=== PATIENT | male | born 1935 | race Caucasian/White ===

== ENCOUNTER 2017-08-13 16:54 | Inpatient (IN) | END 2017-08-21 19:20 | DRG 728 ==

== ENCOUNTER 2018-04-14 12:25 | Emergency (ER) | payer MEDICARE, OTHER ==
[~2018-04-14] VITALS: Ht 170.2 cm; Wt 85.0 kg
[~2018-04-14 12:25] MED LIST: AZEL137S9 NASAL; BENA40TA56 PO; CARV6.2579 PO; CHOL400T10 PO; DOCU250C58 PO; DONE10TA7 PO; DUTA0.5C PO; ESCI5TAB10 PO; ICOS1CAP PO; MEMA10TA PO; OMEP20CA16 PO; RISP1TAB3 PO; SIMV40TA2 PO; TAMS0.4C2 PO; TRAM50TA2 PO
--- NOTE | 2018-04-14 12:39 | ERD ---
ER Documentation Chief Complaint Chief Complaint HPI 82-year-old male [facility] for inappropriate beh avior. Reportedly he has been acting more confused than usual and being more aggressive than usual. Otherwise the patient has no other complaints but history is limited due to his dementia. ROS Limited secondary to altered mental status Medications Home Meds Reported Medications Icosapent Ethyl (VASCEPA) 1 Gm Capsule, 1 GM PO BID, CAP 08/13/17 Tramadol HCl (Tramadol HCl) 50 Mg Tablet, 50 MG PO Q6H PRN for PAIN, #120 TAB 08/13/17 Tamsulosin Hcl* (Tamsulosin Hcl*) 0.4 Mg Cap.er.24h, 0.4 MG PO HS, CAP 08/13/17 Simvastatin* (Zocor*) 40 Mg Tablet, 40 MG PO QHS, #30 TAB 08/13/17 Risperidone* (Risperidone*) 1 Mg Tablet, 1 MG PO DAILY, TAB 08/13/17 Omeprazole* (Omeprazole*) 20 Mg Capsule.dr, 20 MG PO DAILY, #30 CAP 08/13/17 Memantine* (Namenda*) 10 Mg Tablet, 10 MG PO DAILY, #30 TAB 08/13/17 Escitalopram Oxalate* (Escitalopram Oxalate*) 5 Mg Tablet, 5 MG PO DAILY, #30 TAB 08/13/17 Dutasteride* (Avodart*) 0.5 Mg Capsule, 0.5 MG PO DAILY, CAP 08/13/17 Donepezil* (Donepezil*) 10 Mg Tablet, 10 MG PO DAILY, #30 TAB 08/13/17 Docusate Sodium* (Colace*) 250 Mg Capsule, 250 MG PO TID, #30 CAP 08/13/17 Cholecalciferol* (Vitamin D*) 400 Unit Tablet, 400 UNIT PO DAILY, TAB 08/13/17 Carvedilol* (Carvedilol*) 6.25 Mg Tablet, 6.25 MG PO BID, #60 TAB HOLD IF SBP<110 OR HR<60 08/13/17 Benazepril Hcl* (Benazepril Hcl*) 40 Mg Tablet, 40 MG PO DAILY, #30 TAB 08/13/17 Azelastine Hcl* (Azelastine Hcl*) 137 Mcg/0.137 Ml [place].pump, 1 SPRAY NASAL BID, #1 EA TO EACH NOSTRIL 08/13/17 Allergies Allergies: Coded Allergies: No Known Allergy (Unverified , 08/13/17) PMhx/Soc History of Surgery: Yes Anesthesia Reaction: No Hx Neurological Disorder: Yes (DEMENTIA) Hx Respiratory Disorders: Yes (COPD) Hx Cardiac Disorders: Yes (HTN) Hx Psychiatric Problems: No Hx Miscellaneous Medical Probl: Yes (BPH) Hx Alcohol Use: No Hx Substance Use: No Hx Tobacco Use: No FmHx Unable to obtain Physical Exam Vitals Vital Signs Date Temp Pulse Resp B/P (MAP) Pulse Ox O2 O2 Flow FiO2 Time Delivery Rate 04/14/18 97.5 60 18 129/109 97 12:41 (116) Physical Exam Const: No acute distress Head: Atraumatic Eyes: Normal Conjunctiva ENT: Normal External Ears, Nose and Mouth. Neck: Full range of motion. No meningismus. Resp: Clear to auscultation bilaterally Cardio: Regular rate and rhythm, no murmurs Abd: Soft, non tender, non distended. Normal bowel sounds Skin: No petechiae or rashes Back: No midline or flank tenderness Ext: No cyanosis, or edema Neur: Awake and alert, oriented to self only. Cranial nerves intact. Strength and sensations grossly intact Psych: Normal Mood and Affect Result Diagram: 04/14/18 1314 04/14/18 1314 Results 24 hrs Laboratory Tests Test 04/14/18 13:14 04/14/18 13:47 White Blood Count 3.1 10^3/ul Red Blood Count 4.58 10^6/ul Hemoglobin 12.2 g/dl Hematocrit 38.1 % Mean Corpuscular Volume 83.2 fl Mean Corpuscular Hemoglobin 26.6 pg Mean Corpuscular Hemoglobin Concent 32.0 g/dl Red Cell Distribution Width 15.1 % Platelet Count 127 10^3/UL Mean Platelet Volume 10.6 fl Immature Granulocytes % 0.300 % Neutrophils % 40.8 % Lymphocytes % 38.5 % Monocytes % 20.1 % Eosinophils % 0.0 % Basophils % 0.3 % Nucleated Red Blood Cells % 0.0 /100WBC Immature Granulocytes # 0.010 10^3/ul Neutrophils # 1.3 10^3/ul Lymphocytes # 1.2 10^3/ul Monocytes # 0.6 10^3/ul Eosinophils # 0.0 10^3/ul Basophils # 0.0 10^3/ul Nucleated Red Blood Cells # 0.0 10^3/ul Sodium Level 141 mmol/L Potassium Level 4.2 mmol/L Chloride Level 107 mmol/L Carbon Dioxide Level 27 mmol/L Anion Gap 7 Blood Urea Nitrogen 10 mg/dl Creatinine 0.65 mg/dl Est Glomerular Filtrat Rate mL/min mL/min Glucose Level 95 mg/dl Calcium Level 9.5 mg/dl Total Bilirubin 0.2 mg/dl Direct Bilirubin 0.00 mg/dl Indirect Bilirubin 0.2 mg/dl Aspartate Amino Transf (AST/SGOT) 23 IU/L Alanine Aminotransferase (ALT/SGPT) 28 IU/L Alkaline Phosphatase 45 IU/L Total Protein 7.7 g/dl Albumin 4.1 g/dl Globulin 3.60 g/dl Albumin/Globulin Ratio 1.13 Ethyl Alcohol Level < 10.0 mg/dl Urine Color YELLOW Urine Clarity CLEAR Urine pH 6.0 Urine Specific [place] 1.010 Urine Ketones NEGATIVE mg/dL Urine Nitrite NEGATIVE mg/dL Urine Bilirubin NEGATIVE mg/dL Urine Urobilinogen NEGATIVE mg/dL Urine Leukocyte Esterase NEGATIVE Miracle/ul Urine Hemoglobin NEGATIVE mg/dL Urine Glucose NEGATIVE mg/dL Urine Total Protein NEGATIVE mg/dl Urine Opiates Screen Negative Urine Barbiturates Negative Urine Amphetamines Screen Negative Urine Benzodiazepines Screen Negative Urine Cocaine Screen Negative Urine Cannabinoids Negative Procedures/MDM EMERGENT LABS AND DIAGNOSTIC STUDIES: Lab Results above were reviewed and interpreted by me. CBC: Mild leukopenia and thrombocytopenia CMP: No evidence of electrolyte abnormality, renal failure, hypoglycemia, liver failure, or biliary obstruction Urine drug screen negative Alcohol level negative UA: no evidence of infection Radiology Results as interpreted by Radiology below were reviewed by Cheyanne Neumann MD: CT head shows no acute abnormalities Chest x-ray shows no acute abnormalities Initial Nursing notes reviewed. Previous Medical Records requested via the Electronic Health Record. EMERGENCY DEPARTMENT COURSE / MEDICAL DECISION MAKING: This is a patient with chronic dementia with Behavioral problems sent from his [facility]itentiary facility for evaluation. Vitals are stable. He does not have an acute medical condition that is worsening his condition. I had psychiatry evaluate him and they had no immediate recommendations. He does not meet criteria for hospitalization. Patient will be sent back to the nursing facility . Medication changes and further psychiatry evaluation may be done outpatient. Departure Diagnosis: Primary Impression: Dementia with behavioral problem Dementia type: unspecified type Qualified Codes: F03.91 - Unspecified dementia with behavioral disturbance Condition: Stable MYLES NEUMANN MD Apr 14, 2018 12:39
[2018-04-14 12:41] VITALS: Ht 170.2 cm; Wt 85.0 kg
--- NOTE | 2018-04-14 15:24 | PSY ---
Date/Time of Note Date/Time of Note DATE: 04/14/18 TIME: 15:16 Psychiatric Subjective Eval Subjective Evaluation Patient location: emergency Chief Complaint: BIB EMS 140 FROM [facility]. INAPPROPRIATE BEHAVIOR REPORTED BY STAFF Reason for consult: TELEPSYCH EVAL FOR INAPPROPRIATE BEHAVIOR History of present illness 82 year old male with dementia brought to the ED for inappropriate sexual behavior. There has been no signficant change in medications, appetite or sleep. The patient is oriented to name only. The inappropriate sexually touching started recently. Past psychiatric history The patient does not recall. Records suggest that his prior psychiatric history is limited. Hospitalization: no Family History not available. Medical history Problems Medical Problems: (1) Bandemia Status: Acute (2) Pharyngitis Status: Acute (3) UTI (urinary tract infection) Status: Acute Allergies: Coded Allergies: No Known Allergy (Unverified , 08/13/17) Substance Abuse Substance use: No known substance abuse Social History Occupation/Fdc: disabled. Psychiatric Objective Eval Review of Systems: Review of Systems: Not Applicable Constitutional: Normal Other: There has been no significant change in appetite or weight. Physical Examination: Appetite: Adequate Energy: Adequate Mental Status Examination: Appearance: Groomed Psychomotor Activity: Normal Behavior: Other Speech: Soft AFFECT: Anxious Mood: Depressed Though Process: Loose Thought Content: Other (confused. ) Suicidal: No Homicidal: No Orientation: x1 Cognition: Alert Insight: Impared Judgement: Impared Attention Span: Distractible Laboratory Results Laboratory Tests Test 04/14/18 13:14 04/14/18 13:47 White Blood Count 3.1 10^3/ul Red Blood Count 4.58 10^6/ul Hemoglobin 12.2 g/dl Hematocrit 38.1 % Mean Corpuscular Volume 83.2 fl Mean Corpuscular Hemoglobin 26.6 pg Mean Corpuscular Hemoglobin Concent 32.0 g/dl Red Cell Distribution Width 15.1 % Platelet Count 127 10^3/UL Mean Platelet Volume 10.6 fl Immature Granulocytes % 0.300 % Neutrophils % 40.8 % Lymphocytes % 38.5 % Monocytes % 20.1 % Eosinophils % 0.0 % Basophils % 0.3 % Nucleated Red Blood Cells % 0.0 /100WBC Immature Granulocytes # 0.010 10^3/ul Neutrophils # 1.3 10^3/ul Lymphocytes # 1.2 10^3/ul Monocytes # 0.6 10^3/ul Eosinophils # 0.0 10^3/ul Basophils # 0.0 10^3/ul Nucleated Red Blood Cells # 0.0 10^3/ul Sodium Level 141 mmol/L Potassium Level 4.2 mmol/L Chloride Level 107 mmol/L Carbon Dioxide Level 27 mmol/L Anion Gap 7 Blood Urea Nitrogen 10 mg/dl Creatinine 0.65 mg/dl Est Glomerular Filtrat Rate mL/min mL/min Glucose Level 95 mg/dl Calcium Level 9.5 mg/dl Total Bilirubin 0.2 mg/dl Direct Bilirubin 0.00 mg/dl Indirect Bilirubin 0.2 mg/dl Aspartate Amino Transf (AST/SGOT) 23 IU/L Alanine Aminotransferase (ALT/SGPT) 28 IU/L Alkaline Phosphatase 45 IU/L Total Protein 7.7 g/dl Albumin 4.1 g/dl Globulin 3.60 g/dl Albumin/Globulin Ratio 1.13 Ethyl Alcohol Level < 10.0 mg/dl Urine Color YELLOW Urine Clarity CLEAR Urine pH 6.0 Urine Specific [place] 1.010 Urine Ketones NEGATIVE mg/dL Urine Nitrite NEGATIVE mg/dL Urine Bilirubin NEGATIVE mg/dL Urine Urobilinogen NEGATIVE mg/dL Urine Leukocyte Esterase NEGATIVE Miracle/ul Urine Hemoglobin NEGATIVE mg/dL Urine Glucose NEGATIVE mg/dL Urine Total Protein NEGATIVE mg/dl Urine Opiates Screen Negative Urine Barbiturates Negative Urine Amphetamines Screen Negative Urine Benzodiazepines Screen Negative Urine Cocaine Screen Negative Urine Cannabinoids Negative Assessment and Plan Assessment/Diagnosis Diagnosis Dementia. Recommendation/Plan Medication Management Suggest no change in medications. An SSRI trial Zoloft 50mg daily may reduce sexual libido and anxiety. Multiple antipsychotics: No Discharge Disposition: Community (SNF) Legal Status: Voluntary Other The patient should return to his prior place of residence. Helpful website for behavioral treatment for inappropriate behavior. [email or web address] SILVIA MUNOZ MD Apr 14, 2018 15:24
[2018-04-14 17:00] VITALS: BP 99/49; PULSE 64; RESP 18
== END 2018-04-14 17:30 | disposition home or self-care (01) ==
LOC: E/R 12:25
DX: F03.91 Unspecified dementia, unspecified severity, with behavioral disturbance (principal); R40.2142 Coma scale, eyes open, spontaneous, at arrival to emergency department; I10 Essential (primary) hypertension; J44.9 Chronic obstructive pulmonary disease, unspecified
CPT/HCPCS: 70450; 71045; 80053; 80307; 81003; 85025

== ENCOUNTER 2018-05-13 18:46 | Inpatient (IN) | payer MEDICARE, OTHER ==
[~2018-05-13] VITALS: Ht 167.6 cm; Wt 100.0 kg
[2018-05-13] MEDS ORDERED: SOD CHLORIDE 0.9% 500 ML IV STA (19:01)
--- NOTE | 2018-05-13 19:34 | ERD ---
ER Documentation Chief Complaint Chief Complaint CONFUSED TODAY; HX OF DEMENTIA HPI 82-year-old man brought in by EMS from alf for recent confusion. He was seen last month for similar symptoms and there was a concern for psychiatric illness and he was evaluated by his psychiatrist. The medical workup early this month was unremarkable. The patient was walking around the alf today and was going into other peoples rooms and appeared generally confused. He has had no fevers or chills, no vomiting or diarrhea, no complaints of chest pain or shortness of breath. Patient transported here by EMS without further complications ROS All systems reviewed and are negative except as per history of present illness. Medications Home Meds Reported Medications Simvastatin* (Zocor*) 40 Mg Tablet, 40 MG PO QHS, #30 TAB 05/13/18 Icosapent Ethyl (VASCEPA) 1 Gm Capsule, 1 GM PO QHS, CAP 05/13/18 Risperidone* (Risperdal*) 1 Mg Tablet, 0.5 MG PO DAILY, TAB 05/13/18 Memantine* (Namenda*) 10 Mg Tablet, 10 MG PO DAILY, #30 TAB 05/13/18 Benazepril Hcl* (Lotensin*) 40 Mg Tablet, 40 MG PO DAILY, #30 TAB HOLD FOR SBP<110 OR MD<60 05/13/18 Escitalopram Oxalate* (Lexapro*) 5 Mg Tablet, 5 MG PO Q OTHER DAY, #30 TAB 05/13/18 Tamsulosin Hcl* (Flomax*) 0.4 Mg Cap.er.24h, 0.4 MG PO HS, CAP 05/13/18 Carvedilol* (Coreg*) 6.25 Mg Tablet, 6.25 MG PO BID, #60 TAB HOLD FOR SBP<110 OR MD<60 05/13/18 Docusate Sodium* (Colace*) 250 Mg Capsule, 250 MG PO TID, #60 CAP 05/13/18 Cholecalciferol* (Vitamin D*) 400 Unit Tablet, 400 UNIT PO DAILY, TAB 05/13/18 Dutasteride* (Avodart*) 0.5 Mg Capsule, 0.5 MG PO DAILY, CAP 05/13/18 Donepezil* (Aricept*) 10 Mg Tablet, 10 MG PO DAILY, TAB 05/13/18 Acetaminophen* (Acetaminophen*) 650 Mg Tablet, 650 MG PO Q6H PRN for PAIN LEVEL 1-01/20, #30 TAB 05/13/18 Discontinued Reported Medications Icosapent Ethyl (VASCEPA) 1 Gm Capsule, 1 GM PO BID, CAP 08/13/17 Tramadol HCl (Tramadol HCl) 50 Mg Tablet, 50 MG PO Q6H PRN for PAIN, #120 TAB 08/13/17 Tamsulosin Hcl* (Tamsulosin Hcl*) 0.4 Mg Cap.er.24h, 0.4 MG PO HS, CAP 08/13/17 Simvastatin* (Zocor*) 40 Mg Tablet, 40 MG PO QHS, #30 TAB 08/13/17 Risperidone* (Risperidone*) 1 Mg Tablet, 1 MG PO DAILY, TAB 08/13/17 Omeprazole* (Omeprazole*) 20 Mg Capsule.dr, 20 MG PO DAILY, #30 CAP 08/13/17 Memantine* (Namenda*) 10 Mg Tablet, 10 MG PO DAILY, #30 TAB 08/13/17 Escitalopram Oxalate* (Escitalopram Oxalate*) 5 Mg Tablet, 5 MG PO DAILY, #30 TAB 08/13/17 Dutasteride* (Avodart*) 0.5 Mg Capsule, 0.5 MG PO DAILY, CAP 08/13/17 Donepezil* (Donepezil*) 10 Mg Tablet, 10 MG PO DAILY, #30 TAB 08/13/17 Docusate Sodium* (Colace*) 250 Mg Capsule, 250 MG PO TID, #30 CAP 08/13/17 Cholecalciferol* (Vitamin D*) 400 Unit Tablet, 400 UNIT PO DAILY, TAB 08/13/17 Carvedilol* (Carvedilol*) 6.25 Mg Tablet, 6.25 MG PO BID, #60 TAB HOLD IF SBP<110 OR HR<60 08/13/17 Benazepril Hcl* (Benazepril Hcl*) 40 Mg Tablet, 40 MG PO DAILY, #30 TAB 08/13/17 Azelastine Hcl* (Azelastine Hcl*) 137 Mcg/0.137 Ml [place].pump, 1 SPRAY NASAL BID, #1 EA TO EACH NOSTRIL 08/13/17 Allergies Allergies: Coded Allergies: No Known Allergy (Unverified , 05/13/18) PMhx/Soc Hypertension, BPH, dementia History of Surgery: No Anesthesia Reaction: No Hx Respiratory Disorders: Yes (COPD) Hx Psychiatric Problems: No (psychosis, depression, insomnia) Hx Miscellaneous Medical Probl: Yes (BPH, GERD, Osteoporosis) Hx Alcohol Use: No Hx Substance Use: No Hx Tobacco Use: No Smoking Status: Never smoker FmHx Family History: No diabetes Physical Exam Vitals Vital Signs Date Temp Pulse Resp B/P (MAP) Pulse Ox O2 O2 Flow FiO2 Time Delivery Rate 05/13/18 60 12 120/66 97 Room Air 19:32 (84) 05/13/18 98.0 64 18 131/75 98 18:59 (93) Physical Exam GENERAL: Well-developed, elderly man, afebrile, appears dehydrated HEENT: Dry mucous membranes, pink conjunctiva, no cervical spine tenderness or step-off deformities, NEURO: Alert and oriented x1, patient is ambulatory, pupils equal round reactive to light, no focal deficits, patient is confused but able to answer simple questions and follows simple commands CARDIAC: Regular rate and rhythm, no murmurs rubs or gallops ABDOMEN: Soft nontender, no guarding, no rigidity, no rebound, no psoas sign no obturator sign. SKIN: Warm and dry to touch, no abrasions, contusions, or hematomas, no lacerations, no ecchymosis, no target lesions, and without ulcers EXTREMITIES: No clubbing cyanosis or edema, calves are bilaterally symmetrical, no Homans sign, no popliteal cord sign. Distal pulses equal and bilateral PSYCH: Normal affect without agitation or irritability Result Diagram: 05/13/18191205/13/181912 Results 24 hrs Laboratory Tests Test 05/13/18 19:13 05/13/18 19:45 White Blood Count 2.6 10^3/ul Red Blood Count 4.73 10^6/ul Hemoglobin 12.5 g/dl Hematocrit 39.4 % Mean Corpuscular Volume 83.3 fl Mean Corpuscular Hemoglobin 26.4 pg Mean Corpuscular Hemoglobin Concent 31.7 g/dl Red Cell Distribution Width 15.5 % Platelet Count 111 10^3/UL Mean Platelet Volume 10.5 fl Immature Granulocytes % 0.400 % Segmented Neutrophils % (Manual) 39 % Lymphocytes % (Manual) 47 % Monocytes % (Manual) 14 % Nucleated Red Blood Cells % 0.0 /100WBC Immature Granulocytes # 0.010 10^3/ul Lymphocytes (Manual) 1.2 10^3/ul Monocytes # (Manual) 0.3 10^3/ul Platelet Estimate NORMAL Giant Platelets 4 % Polychromasia 1+ Poikilocytosis 1+ Sodium Level 141 mmol/L Potassium Level 3.9 mmol/L Chloride Level 102 mmol/L Carbon Dioxide Level 26 mmol/L Anion Gap 13 Blood Urea Nitrogen 14 mg/dl Creatinine 0.95 mg/dl Est Glomerular Filtrat Rate mL/min mL/min Glucose Level 105 mg/dl Calcium Level 9.8 mg/dl Total Bilirubin 0.1 mg/dl Direct Bilirubin 0.00 mg/dl Indirect Bilirubin 0.1 mg/dl Aspartate Amino Transf (AST/SGOT) 22 IU/L Alanine Aminotransferase (ALT/SGPT) 17 IU/L Alkaline Phosphatase 44 IU/L Troponin I < 0.012 ng/ml Total Protein 7.8 g/dl Albumin 4.3 g/dl Globulin 3.50 g/dl Albumin/Globulin Ratio 1.22 Lipase 144 U/L Urine Color YELLOW Urine Clarity CLEAR Urine pH 6.0 Urine Specific [place] 1.014 Urine Ketones NEGATIVE mg/dL Urine Nitrite NEGATIVE mg/dL Urine Bilirubin NEGATIVE mg/dL Urine Urobilinogen NEGATIVE mg/dL Urine Leukocyte Esterase NEGATIVE Miracle/ul Urine Microscopic RBC > 182 /HPF Urine Microscopic WBC 22 /HPF Urine Squamous Epithelial Cells FEW /HPF Urine Hemoglobin 3+ mg/dL Urine Glucose NEGATIVE mg/dL Urine Total Protein 1+ mg/dl Current Medications Medications Dose Sig/Jones Start Time Status Last (Trade) Ordered Route PRN Stop Time Admin Dose Reason Admin Sodium 500 ml @ Q1H STAT 05/13/18 DC 05/13/18 Chloride 500 mls/hr IV 19:01 19:18 05/13/18 20:00 Procedures/MDM IV line was established patient was placed on media monitor rhythm strip revealed a sinus rhythm at about 70 bpm with upright P and T waves. Patient was afebrile EKG performed, read by me revealed a normal sinus rhythm at 66 bpm, normal axis, first-degree AV block, right bundle branch block, no concerning ST elevations or depressions noted I administered 1 L normal saline IV for dehydration CBC was normal, electrolytes revealed dehydration, liver function tests normal, troponin negative, urinalysis positive for infection. CT scan of the brain was performed that was negative for acute bleed mass or shift. I administered cefepime 1 g IV x1 Patient will be admitted to [facility] for continued hydration and antibiotic management. Departure Diagnosis: Primary Impression: Altered level of consciousness Additional Impressions: Acute dehydration Acute UTI Dementia Condition: GABINO Kelsey MD May 13, 2018 19:32
[2018-05-13] MEDS ORDERED: ACET-2047 PO (20:15)
[2018-05-13] MEDS ORDERED: DUTA0.5C PO (20:16)
[2018-05-13] MEDS ORDERED: DONE10TA7 PO (20:16)
[2018-05-13] MEDS ORDERED: CHOL400T10 PO (20:17)
[2018-05-13] MEDS ORDERED: DOCU250C58 PO (20:17)
[2018-05-13] MEDS ORDERED: TAMS-14 PO (20:18)
[2018-05-13] MEDS ORDERED: CARV6.25 PO (20:18)
[2018-05-13] MEDS ORDERED: ESCI5TAB PO (20:19)
[2018-05-13] MEDS ORDERED: BENA40TA54 PO (20:19)
[2018-05-13] MEDS ORDERED: MEMA10TA PO (20:20)
[2018-05-13] MEDS ORDERED: RISP-7 PO (20:21)
[2018-05-13] MEDS ORDERED: SIMV40TA2 PO (20:22)
[2018-05-13] MEDS ORDERED: ICOS1CAP PO (20:22)
[2018-05-13] MEDS ORDERED: morphine 4 MG/ML VIAL IV PRN (21:00)
[2018-05-13] MEDS ORDERED: NACL 0.9% 3 ML SYG IV SCH (21:00)
[2018-05-13] MEDS ORDERED: ONDANSETRON 4 MG INJ IV PRN (21:00)
[2018-05-13 21:49] VITALS: Ht 167.6 cm; Wt 100.0 kg
[2018-05-13 21:52] VITALS: BP 154/79; PULSE 87; RESP 19
[2018-05-13] MEDS ORDERED: CEFEPIME 1GM/50 ML (PMX) 50 ML IVPB ONE (22:30)
[2018-05-13] MEDS: FAMOTIDINE 20 MG INJ IV SCH (22:52)
[2018-05-14 01:49] VITALS: BP 134/74; PULSE 81; RESP 20
[2018-05-14 08:12] VITALS: BP 130/68; PULSE 70; RESP 18
[2018-05-14] MEDS ORDERED: ENOXAPARIN 30 MG/0.3 ML SYG SC SCH (09:00)
[2018-05-14] MEDS: FAMOTIDINE 20 MG INJ IV SCH ×2 (09:06→20:39)
[2018-05-14 13:57] VITALS: BP 117/69; PULSE 71; RESP 18
[2018-05-14] MEDS: ACETAMINOPHEN 325 MG TAB PO PRN (14:05)
--- NOTE | 2018-05-14 18:02 | HP ---
Date/Time of Note Date/Time of Note DATE: 05/14/18 TIME: 17:55 Assessment/Plan VTE Prophylaxis Risk score (from Ns)>0 risk: 4 SCD applied (from Ns): Yes Pharmacological prophylaxis: other Lines/Catheters IV Catheter Type (from Rust): Saline Lock Urinary Cath still in place: No Assessment/Plan Hospital Course EKG - sinus rhythm at 66 bpm, normal axis, first-degree AV block, right bundle branch block, no concerning ST elevations or depressions note CBC was normal, electrolytes revealed dehydration liver function tests normal troponin negative urinalysis positive for infection. CT scan of the brain was performed that was negative for acute bleed mass or shift. Assessment/Plan Altered level of consciousness- resolving. alert/ responsive -CT scan of the brain was performed that was negative for acute bleed mass or shift. Acute dehydration -IVF Acute UTI - Rocephin daily Thrombocytopenia -hold Lovenox - Hematology consult appreciated Neutropenia - neutropenic precautions Hypertension- resume home meds BPH Dementia COPD Psychosis Depression Insomnia GERD Osteoporosis SCD forDVT prophylaxis Protonx FOR GI prophylaxis Plan of care dw Dr Becker/staff Result Diagram: 05/14/18 0621 05/14/18 0621 Results 24hrs Laboratory Tests Test 05/13/18 19:13 05/13/18 19:45 05/14/18 06:21 White Blood Count 2.6 L 2.2 L Red Blood Count 4.73 4.56 L Hemoglobin 12.5 L 12.0 L Hematocrit 39.4 L 38.0 L Mean Corpuscular Volume 83.3 83.3 Mean Corpuscular Hemoglobin 26.4 L 26.3 L Mean Corpuscular Hemoglobin Concent 31.7 L 31.6 L Red Cell Distribution Width 15.5 H 15.5 H Platelet Count 111 L 101 L Mean Platelet Volume 10.5 H 11.3 H Immature Granulocytes % 0.400 0.500 H Segmented Neutrophils % (Manual) 39 Lymphocytes % (Manual) 47 Monocytes % (Manual) 14 H Nucleated Red Blood Cells % 0.0 0.0 Immature Granulocytes # 0.010 0.010 Lymphocytes (Manual) 1.2 Monocytes # (Manual) 0.3 Platelet Estimate NORMAL Giant Platelets 4 H Polychromasia 1+ Poikilocytosis 1+ Sodium Level 141 143 Potassium Level 3.9 3.9 Chloride Level 102 111 H Carbon Dioxide Level 26 26 Anion Gap 13 6 Blood Urea Nitrogen 14 10 Creatinine 0.95 0.73 Est Glomerular Filtrat Rate mL/min Glucose Level 105 105 Calcium Level 9.8 9.2 Total Bilirubin 0.1 L 0.2 Direct Bilirubin 0.00 0.00 Indirect Bilirubin 0.1 0.2 Aspartate Amino Transf (AST/SGOT) 22 19 Alanine Aminotransferase (ALT/SGPT) 17 19 Alkaline Phosphatase 44 31 L Troponin I < 0.012 Total Protein 7.8 7.1 Albumin 4.3 3.8 Globulin 3.50 H 3.30 H Albumin/Globulin Ratio 1.22 1.15 Lipase 144 Urine Color YELLOW Urine Clarity CLEAR Urine pH 6.0 Urine Specific [place] 1.014 Urine Ketones NEGATIVE Urine Nitrite NEGATIVE Urine Bilirubin NEGATIVE Urine Urobilinogen NEGATIVE Urine Leukocyte Esterase NEGATIVE Urine Microscopic RBC > 182 H Urine Microscopic WBC 22 H Urine Squamous Epithelial Cells FEW Urine Hemoglobin 3+ H Urine Glucose NEGATIVE Urine Total Protein 1+ H Neutrophils % 30.3 L Lymphocytes % 45.2 Monocytes % 23.0 H Eosinophils % 0.5 Basophils % 0.5 Neutrophils # 0.7 L Lymphocytes # 1.0 Monocytes # 0.5 Eosinophils # 0.0 Basophils # 0.0 Nucleated Red Blood Cells # 0.0 Hemoglobin A1c 6.4 H HPI/ROS Admit Date/Time Admit Date/Time May 13, 2018 at 20:10 Hx of Present Illness This is a 82-year-old male- a SNF resident male is admitted with c/o confusion.The patient was walking around the residential today and was going into other peoples rooms and appeared generally confused. He has had no fevers or chills, no vomiting or diarrhea, no complaints of chest pain or shortness of breath. Patient had been admitted last month for similar symptoms and he was evaluated by his psychiatrist. The medical workup early this month was unremarkable. Patient is admitted under Dr Marinelli for futher treatment/evaluation ROS All systems reviewed and are negative except as per history of present illness. Allergies No Known Allergy (Unverified , 05/13/18) ROS Eyes: no complaints ENT: no complaints Gastrointestinal: no complaints Genitourinary: no complaints PMH/Family/Social Past Medical History PMhx/Soc Hypertension, BPH, dementia History of Surgery: No Anesthesia Reaction: No Hx Respiratory Disorders: Yes (COPD) Hx Psychiatric Problems: No (psychosis, depression, insomnia) Hx Miscellaneous Medical Probl: Yes (BPH, GERD, Osteoporosis) Hx Alcohol Use: No Hx Substance Use: No Hx Tobacco Use: No Smoking Status: Never smoker FmHx Family History: No diabetes Medications Current Medications IV Flush (NS 3 ml) 3 ml PER PROTOCOL IV ; Start 05/13/18 at 21:00 Ondansetron HCl (Zofran Inj) 4 mg Q6H PRN IV NAUSEA/VOMITING; Start 05/13/18 at 21:00 Acetaminophen (Tylenol Tab) 650 mg Q6H PRN PO .PAIN 1-3 OR TEMP Last administered on 05/14/18at 14:05; Admin Dose 650 MG; Start 05/13/18 at 21:00 Morphine Sulfate (morphine) 2 mg Q4H PRN IV .SEVERE PAIN 7-10; Start 05/13/18 at 21:00 Famotidine (Pepcid Iv) 20 mg Q12 IV Last administered on 05/14/18at 09:06; Admin Dose 20 MG; Start 05/13/18 at 21:00 Enoxaparin Sodium (Lovenox) 30 mg DAILY SC ; Start 05/14/18 at 09:00 Coded Allergies: No Known Allergy (Unverified , 05/13/18) Family History Significant Family History: no pertinent family hx Social History Smoking Status: Never smoker Exam/Review of Systems Vital Signs Vitals Vital Signs Date Temp Pulse Resp B/P (MAP) Pulse Ox O2 O2 Flow FiO2 Time Delivery Rate 05/14/18 98.5 71 18 117/69 92 Room Air 13:57 (85) Intake and Output 05/13/18 05/13/18 05/14/18 1515:00 23:00 07:00 IntakeIntake Total 50 ml BalanceBalance 50 ml Exam Constitutional: alert, well developed Psych: nl mood/affect Eyes: EOMI, nl sclera ENMT: nl external ears & nose Neck: non-tender Respiratory: diminished breath sounds Cardiovascular: nl pulses Gastrointestinal: soft, non-tender Musculoskeletal: nl extremities to inspection Neurological: nl speech, confused Lymph: nontender FROYLAN ALVAREZ May 14, 2018 18:02
[2018-05-14] MEDS ORDERED: ACETAMINOPHEN 325 MG TAB PO PRN (19:00)
[2018-05-14 20:00] VITALS: BP 154/72; PULSE 62; RESP 19
[2018-05-14] MEDS: TAMSULOSIN (SR) 0.4 MG CAP PO SCH (20:39)
[2018-05-14] MEDS: DOCUSATE SODIUM 250 MG CAP PO SCH (20:39)
[2018-05-14] MEDS: CEFTRIAXONE 1 GM/50 ML (PMX) 50 ML IVPB SCH (20:43)
[2018-05-15 02:00] VITALS: BP 157/82; PULSE 69; RESP 18
[2018-05-15] MEDS: DEXTROSE 5%-0.45% NACL 1,000 ML IV SCH (03:21)
[2018-05-15] MEDS: PANTOPRAZOLE (EC) 40 MG TAB PO SCH (05:49)
[2018-05-15 08:00] VITALS: BP 143/77; PULSE 73; RESP 20
[2018-05-15] MEDS: DUTASTERIDE 0.5 MG CAP PO SCH (09:23)
[2018-05-15] MEDS: CHOLECALCIFEROL 400 UNITS TAB PO SCH (09:23)
[2018-05-15] MEDS: RISPERIDONE 0.25 MG TAB PO SCH (09:23)
[2018-05-15] MEDS: DOCUSATE SODIUM 250 MG CAP PO SCH ×2 (09:23→20:41)
[2018-05-15] MEDS: MEMANTINE 10 MG TAB PO SCH (09:24)
[2018-05-15] MEDS: DONEPEZIL 10 MG TAB PO SCH (09:24)
[2018-05-15] MEDS: BENAZEPRIL 40 MG TAB PO SCH (11:21)
[2018-05-15 14:00] VITALS: BP 151/84; PULSE 69; RESP 18
--- NOTE | 2018-05-15 17:50 | PN ---
Date/Time of Note Date/Time of Note DATE: 05/15/18 TIME: 17:48 Assessment/Plan VTE Prophylaxis Risk score (from [facility] [place])>0 risk: 5 SCD applied (from [facility] [place]): Yes Pharmacological prophylaxis: other Lines/Catheters IV Catheter Type (from [facility]): Saline Lock Urinary Cath still in place: No Assessment/Plan Assessment/Plan Altered level of consciousness- resolving. alert/ responsive -CT scan of the brain was performed that was negative for acute bleed mass or shift. Acute dehydration -IVF Acute UTI - Rocephin daily Thrombocytopenia- Platelets 106 -hold Lovenox - Hematology consult appreciated Neutropenia - neutropenic precautions Hypertension- resume home meds BPH Dementia COPD Psychosis Depression Insomnia GERD Osteoporosis SCD forDVT prophylaxis Protonx FOR GI prophylaxis Plan of care dw Dr Becker/staff Result Diagram: 05/15/18 1206 05/15/18 1206 Results 24hrs Laboratory Tests Test 05/15/18 12:06 White Blood Count 2.6 L Red Blood Count 5.00 Hemoglobin 13.0 L Hematocrit 40.9 L Mean Corpuscular Volume 81.8 L Mean Corpuscular Hemoglobin 26.0 L Mean Corpuscular Hemoglobin Concent 31.8 L Red Cell Distribution Width 15.7 H Platelet Count 106 L Mean Platelet Volume 10.2 Immature Granulocytes % 0.400 Neutrophils % 30.7 L Lymphocytes % 50.0 Monocytes % 18.1 H Eosinophils % 0.4 Basophils % 0.4 Nucleated Red Blood Cells % 0.0 Immature Granulocytes # 0.010 Neutrophils # 0.8 L Lymphocytes # 1.3 Monocytes # 0.5 Eosinophils # 0.0 Basophils # 0.0 Nucleated Red Blood Cells # 0.0 Sodium Level 141 Potassium Level 3.9 Chloride Level 104 Carbon Dioxide Level 27 Anion Gap 10 Blood Urea Nitrogen 11 Creatinine 0.77 Est Glomerular Filtrat Rate mL/min Glucose Level 87 Calcium Level 9.8 Subjective 24 Hr Interval Summary Free Text/Dictation NAD Afebrile - no bleeding reported from any orifices no new events reported overnight Eyes: no complaints ENT: no complaints Respiratory: no complaints Cardiovascular: no complaints Gastrointestinal: no complaints Exam/Review of Systems Exam Vitals Vital Signs Date Temp Pulse Resp B/P (MAP) Pulse Ox O2 O2 Flow FiO2 Time Delivery Rate 05/15/18 98.2 69 18 151/84 94 14:00 (106) 05/15/18 Room Air 08:00 Intake and Output 05/14/18 05/14/18 05/15/18 1515:00 23:00 07:00 IntakeIntake Total 570 ml 600 ml OutputOutput Total 900 ml 1200 ml BalanceBalance -330 ml -600 ml Constitutional: alert, well developed Psych: nl mood/affect Head: normocephalic Eyes: EOMI, nl lids, nl sclera ENMT: nl external ears & nose Neck: non-tender Respiratory: clear to auscultation Cardiovascular: nl pulses, other (s1s2) Gastrointestinal: soft, non-tender Musculoskeletal: nl extremities to inspection Extremities: normal pulses Neurological: confused Skin: nl turgor Lymph: nontender Results Results 24hrs Laboratory Tests Test 05/15/18 12:06 White Blood Count 2.6 L Red Blood Count 5.00 Hemoglobin 13.0 L Hematocrit 40.9 L Mean Corpuscular Volume 81.8 L Mean Corpuscular Hemoglobin 26.0 L Mean Corpuscular Hemoglobin Concent 31.8 L Red Cell Distribution Width 15.7 H Platelet Count 106 L Mean Platelet Volume 10.2 Immature Granulocytes % 0.400 Neutrophils % 30.7 L Lymphocytes % 50.0 Monocytes % 18.1 H Eosinophils % 0.4 Basophils % 0.4 Nucleated Red Blood Cells % 0.0 Immature Granulocytes # 0.010 Neutrophils # 0.8 L Lymphocytes # 1.3 Monocytes # 0.5 Eosinophils # 0.0 Basophils # 0.0 Nucleated Red Blood Cells # 0.0 Sodium Level 141 Potassium Level 3.9 Chloride Level 104 Carbon Dioxide Level 27 Anion Gap 10 Blood Urea Nitrogen 11 Creatinine 0.77 Est Glomerular Filtrat Rate mL/min Glucose Level 87 Calcium Level 9.8 Medications Medication Current Medications IV Flush (NS 3 ml) 3 ml PER PROTOCOL IV ; Start 05/13/18 at 21:00 Ondansetron HCl (Zofran Inj) 4 mg Q6H PRN IV NAUSEA/VOMITING; Start 05/13/18 at 21:00 Acetaminophen (Tylenol Tab) 650 mg Q6H PRN PO .PAIN 1-3 OR TEMP Last administered on 05/14/18at 14:05; Admin Dose 650 MG; Start 05/13/18 at 21:00 Morphine Sulfate (morphine) 2 mg Q4H PRN IV .SEVERE PAIN 7-10; Start 05/13/18 at 21:00 Ceftriaxone Sodium 50 ml @ 100 mls/hr Q24H IVPB Last administered on 05/14/18 20:43; Admin Dose 100 MLS/HR; Start 05/14/18 at 18:30 Acetaminophen (Tylenol Tab) 650 mg Q6H PRN PO PAIN LEVEL 1-10/10; Start 05/14/18 at 19:00 Benazepril HCl (Lotensin) 40 mg DAILY PO Last administered on 05/15/18 11:21; Admin Dose 40 MG; Start 05/15/18 at 09:00 Carvedilol (Coreg) 6.25 mg BID PO Last administered on 05/15/18 09:25; Admin Dose 6.25 MG; Start 05/14/18 at 21:00 Cholecalciferol (Vitamin D) 400 units DAILY PO Last administered on 05/15/18 09:23; Admin Dose 400 UNITS; Start 05/15/18 at 09:00 Docusate Sodium (Colace) 250 mg BID PO Last administered on 05/15/18 09:23; Admin Dose 250 MG; Start 05/14/18 at 21:00 Donepezil HCl (Aricept) 10 mg DAILY PO Last administered on 05/15/18 09:24; Admin Dose 10 MG; Start 05/15/18 at 09:00 Dutasteride (Avodart) 0.5 mg DAILY PO Last administered on 05/15/18 09:23; Admin Dose 0.5 MG; Start 05/15/18 at 09:00 Memantine (Namenda) 10 mg DAILY PO Last administered on 05/15/18 09:24; Admin Dose 10 MG; Start 05/15/18 at 09:00 Risperidone (Risperdal) 0.5 mg DAILY PO Last administered on 05/15/18 09:23; Admin Dose 0.5 MG; Start 05/15/18 at 09:00 Tamsulosin HCl (Flomax) 0.4 mg HS PO Last administered on 05/14/18 20:39; Admin Dose 0.4 MG; Start 05/14/18 at 21:00 Escitalopram Oxalate (Lexapro) 5 mg QHS PO ; Start 05/15/18 at 21:00 Dextrose/Sodium Chloride 1,000 ml @ 60 mls/hr [id number] IV Last administered on 05/15/18at 03:21; Admin Dose 60 MLS/HR; Start 05/15/18 at 03:00 Pantoprazole (Protonix Tab) 40 mg DAILY@06 PO Last administered on 05/15/18at 05:49; Admin Dose 40 MG; Start 05/15/18 at 06:00 FROYLAN ALVAREZ May 15, 2018 17:50
[2018-05-15] MEDS: CEFTRIAXONE 1 GM/50 ML (PMX) 50 ML IVPB SCH (18:24)
[2018-05-15 20:38] VITALS: BP 119/62; PULSE 72; RESP 18
[2018-05-15] MEDS: TAMSULOSIN (SR) 0.4 MG CAP PO SCH (20:40)
[2018-05-15] MEDS: ESCITALOPRAM 10 MG TAB PO SCH (20:41)
[2018-05-16] MEDS: DEXTROSE 5%-0.45% NACL 1,000 ML IV SCH ×2 (01:07→12:20)
[2018-05-16 02:00] VITALS: BP 107/60; PULSE 83; RESP 18
[2018-05-16] MEDS: PANTOPRAZOLE (EC) 40 MG TAB PO SCH (05:43)
[2018-05-16 08:02] VITALS: BP 146/77; PULSE 73; RESP 17
[2018-05-16] MEDS: DOCUSATE SODIUM 250 MG CAP PO SCH ×2 (08:52→21:04)
[2018-05-16] MEDS: BENAZEPRIL 40 MG TAB PO SCH (08:53)
[2018-05-16] MEDS: CHOLECALCIFEROL 400 UNITS TAB PO SCH (08:54)
[2018-05-16] MEDS: MEMANTINE 10 MG TAB PO SCH (08:54)
[2018-05-16] MEDS: RISPERIDONE 0.25 MG TAB PO SCH (08:54)
[2018-05-16] MEDS: DONEPEZIL 10 MG TAB PO SCH (08:55)
[2018-05-16] MEDS: DUTASTERIDE 0.5 MG CAP PO SCH (09:00)
--- NOTE | 2018-05-16 10:53 | PN ---
Date/Time of Note Date/Time of Note DATE: 05/16/18 TIME: 10:52 Assessment/Plan VTE Prophylaxis Risk score (from [facility])>0 risk: 3 SCD applied (from [facility] [place]): No SCD contraindicated: other Pharmacological prophylaxis: other Lines/Catheters IV Catheter Type (from [facility]): Peripheral IV Urinary Cath still in place: No Assessment/Plan Assessment/Plan Altered level of consciousness- resolving. alert/ responsive -CT scan of the brain was performed that was negative for acute bleed mass or shift. Acute dehydration -IVF Acute UTI - Rocephin daily Thrombocytopenia -hold Lovenox - Hematology consult appreciated Neutropenia - neutropenic precautions Hypertension- resume home meds BPH Dementia COPD Psychosis Depression Insomnia GERD Osteoporosis SCD forDVT prophylaxis Protonix FOR GI prophylaxis Plan of care dw Dr Becker/staff Result Diagram: 05/15/18 1206 05/15/18 1206 Results 24hrs Laboratory Tests Test 05/15/18 12:06 White Blood Count 2.6 L Red Blood Count 5.00 Hemoglobin 13.0 L Hematocrit 40.9 L Mean Corpuscular Volume 81.8 L Mean Corpuscular Hemoglobin 26.0 L Mean Corpuscular Hemoglobin Concent 31.8 L Red Cell Distribution Width 15.7 H Platelet Count 106 L Mean Platelet Volume 10.2 Immature Granulocytes % 0.400 Neutrophils % 30.7 L Lymphocytes % 50.0 Monocytes % 18.1 H Eosinophils % 0.4 Basophils % 0.4 Nucleated Red Blood Cells % 0.0 Immature Granulocytes # 0.010 Neutrophils # 0.8 L Lymphocytes # 1.3 Monocytes # 0.5 Eosinophils # 0.0 Basophils # 0.0 Nucleated Red Blood Cells # 0.0 Sodium Level 141 Potassium Level 3.9 Chloride Level 104 Carbon Dioxide Level 27 Anion Gap 10 Blood Urea Nitrogen 11 Creatinine 0.77 Est Glomerular Filtrat Rate mL/min Glucose Level 87 Calcium Level 9.8 Subjective 24 Hr Interval Summary Free Text/Dictation NAD - Feels better - afebrile - no bleeding reported from any orifices - no new events reported last night Eyes: no complaints ENT: no complaints Respiratory: no complaints Cardiovascular: no complaints Gastrointestinal: no complaints Genitourinary: no complaints Musculoskeletal: no complaints Exam/Review of Systems Exam Vitals Vital Signs Date Temp Pulse Resp B/P (MAP) Pulse Ox O2 O2 Flow FiO2 Time Delivery Rate 05/16/18 98.0 73 17 146/77 93 08:02 (100) 05/15/18 Room Air 20:38 Intake and Output 05/15/18 05/15/18 05/16/18 1515:00 23:00 07:00 IntakeIntake Total 1220 ml 1330 ml 740 ml OutputOutput Total 1100 ml 1000 ml 400 ml BalanceBalance 120 ml 330 ml 340 ml Constitutional: alert, well developed Psych: nl mood/affect Head: normocephalic Eyes: EOMI, nl lids ENMT: nl external ears & nose Neck: non-tender Respiratory: clear to auscultation Cardiovascular: nl pulses, other (s1s2) Gastrointestinal: soft, non-tender Extremities: normal pulses Neurological: confused Lymph: nontender Results Results 24hrs Laboratory Tests Test 05/15/18 12:06 White Blood Count 2.6 L Red Blood Count 5.00 Hemoglobin 13.0 L Hematocrit 40.9 L Mean Corpuscular Volume 81.8 L Mean Corpuscular Hemoglobin 26.0 L Mean Corpuscular Hemoglobin Concent 31.8 L Red Cell Distribution Width 15.7 H Platelet Count 106 L Mean Platelet Volume 10.2 Immature Granulocytes % 0.400 Neutrophils % 30.7 L Lymphocytes % 50.0 Monocytes % 18.1 H Eosinophils % 0.4 Basophils % 0.4 Nucleated Red Blood Cells % 0.0 Immature Granulocytes # 0.010 Neutrophils # 0.8 L Lymphocytes # 1.3 Monocytes # 0.5 Eosinophils # 0.0 Basophils # 0.0 Nucleated Red Blood Cells # 0.0 Sodium Level 141 Potassium Level 3.9 Chloride Level 104 Carbon Dioxide Level 27 Anion Gap 10 Blood Urea Nitrogen 11 Creatinine 0.77 Est Glomerular Filtrat Rate mL/min Glucose Level 87 Calcium Level 9.8 Medications Medication Current Medications IV Flush (NS 3 ml) 3 ml PER PROTOCOL IV ; Start 05/13/18 at 21:00 Ondansetron HCl (Zofran Inj) 4 mg Q6H PRN IV NAUSEA/VOMITING; Start 05/13/18 at 21:00 Acetaminophen (Tylenol Tab) 650 mg Q6H PRN PO .PAIN 1-3 OR TEMP Last administered on 05/14/18at 14:05; Admin Dose 650 MG; Start 05/13/18 at 21:00 Morphine Sulfate (morphine) 2 mg Q4H PRN IV .SEVERE PAIN 7-10; Start 05/13/18 at 21:00 Ceftriaxone Sodium 50 ml @ 100 mls/hr Q24H IVPB Last administered on 05/15/18 18:24; Admin Dose 100 MLS/HR; Start 05/14/18 at 18:30 Acetaminophen (Tylenol Tab) 650 mg Q6H PRN PO PAIN LEVEL 1-10/10; Start 05/14/18 at 19:00 Benazepril HCl (Lotensin) 40 mg DAILY PO Last administered on 05/16/18 08:53; Admin Dose 40 MG; Start 05/15/18 at 09:00 Carvedilol (Coreg) 6.25 mg BID PO Last administered on 05/16/18 08:54; Admin Dose 6.25 MG; Start 05/14/18 at 21:00 Cholecalciferol (Vitamin D) 400 units DAILY PO Last administered on 05/16/18 08:54; Admin Dose 400 UNITS; Start 05/15/18 at 09:00 Docusate Sodium (Colace) 250 mg BID PO Last administered on 05/16/18 08:52; Adm in Dose 250 MG; Start 05/14/18 at 21:00 Donepezil HCl (Aricept) 10 mg DAILY PO Last administered on 05/16/18 08:55; Admin Dose 10 MG; Start 05/15/18 at 09:00 Dutasteride (Avodart) 0.5 mg DAILY PO Last administered on 05/15/18 09:23; Admin Dose 0.5 MG; Start 05/15/18 at 09:00 Memantine (Namenda) 10 mg DAILY PO Last administered on 05/16/18 08:54; Admin Dose 10 MG; Start 05/15/18 at 09:00 Risperidone (Risperdal) 0.5 mg DAILY PO Last administered on 05/16/18 08:54; Admin Dose 0.5 MG; Start 05/15/18 at 09:00 Tamsulosin HCl (Flomax) 0.4 mg HS PO Last administered on 05/15/18 20:40; Admin Dose 0.4 MG; Start 05/14/18 at 21:00 Escitalopram Oxalate (Lexapro) 5 mg QHS PO Last administered on 05/15/18 20:41; Admin Dose 5 MG; Start 05/15/18 at 21:00 Dextrose/Sodium Chloride 1,000 ml @ 60 mls/hr [id number] IV Last administered on 05/16/18at 01:07; Admin Dose 60 MLS/HR; Start 05/15/18 at 03:00 Pantoprazole (Protonix Tab) 40 mg DAILY@06 PO Last administered on 05/16/18at 05:43; Admin Dose 40 MG; Start 05/15/18 at 06:00 FROYLAN ALVAREZ May 16, 2018 10:53
[2018-05-16 14:54] VITALS: BP 154/75; PULSE 76; RESP 17
[2018-05-16] MEDS: CEFTRIAXONE 1 GM/50 ML (PMX) 50 ML IVPB SCH (17:57)
[2018-05-16 20:00] VITALS: BP 129/66; PULSE 62; RESP 18
[2018-05-16] MEDS: ESCITALOPRAM 10 MG TAB PO SCH (21:04)
[2018-05-16] MEDS: TAMSULOSIN (SR) 0.4 MG CAP PO SCH (21:04)
[2018-05-17 02:00] VITALS: BP 145/74; PULSE 74; RESP 16
[2018-05-17] MEDS: DEXTROSE 5%-0.45% NACL 1,000 ML IV SCH ×2 (05:00→06:49)
[2018-05-17] MEDS: PANTOPRAZOLE (EC) 40 MG TAB PO SCH (06:48)
[2018-05-17 07:51] VITALS: BP 148/72; PULSE 63; RESP 18
[2018-05-17] MEDS: BENAZEPRIL 40 MG TAB PO SCH (08:43)
[2018-05-17] MEDS: DONEPEZIL 10 MG TAB PO SCH (08:43)
[2018-05-17] MEDS: DOCUSATE SODIUM 250 MG CAP PO SCH ×2 (08:44→20:30)
[2018-05-17] MEDS: CHOLECALCIFEROL 400 UNITS TAB PO SCH (08:44)
[2018-05-17] MEDS: RISPERIDONE 0.25 MG TAB PO SCH (08:45)
[2018-05-17] MEDS: DUTASTERIDE 0.5 MG CAP PO SCH (08:45)
[2018-05-17] MEDS: MEMANTINE 10 MG TAB PO SCH (08:45)
[2018-05-17] MEDS: ASPIRIN (EC) 81 MG TAB PO SCH (12:53)
--- NOTE | 2018-05-17 14:26 | PN ---
DATE: 05/17/2018 SUBJECTIVE: The patient continues to grab nursing staff and one nurse also reported that he was trying to kiss her. The patient did not have any fall, no reported focal weakness. The patient remains awake, alert, no reported fever or chills. No reported bleeding sublingual in situ. NEUROLOGIC: The patient is awake, alert, follows simple commands. PHYSICAL EXAMINATION: VITAL SIGNS: Temperature 97.6, pulse 63, respiration 60, respiration 18, blood pressure 148/72, O2 saturation 95% on room air. HEENT: No eye discharge or redness. Conjunctivae normal. Oropharynx clear. NECK: Supple, no mass or thyromegaly. CHEST: Fairly clear. No use of accessory muscles. CARDIOVASCULAR: Normal. No murmur. ABDOMEN: Soft, nontender. Bowel sounds plus. EXTREMITIES: No leg edema. Pedal pulse palpable. SKIN: Without acute rash or ulcer. NEURO: The patient is awake, alert, follows simple command, moves all extremities. LABORATORY DATA: Done this morning, WBC 2.9, up from 2.6, hemoglobin 12.1, platelet 109, down from 127 a couple of days ago. Sodium 142, potassium 3.9, BUN 14, creatinine 0.7, glucose 107. IMPRESSION: 1. Pancytopenia. Will send another reminder for Heme-Onc evaluation from Dr. Carrera. 2. Abnormal UA, however, culture is negative and patient is afebrile. Therefore, I will discontinue empiric antibiotic. 3. Hyponatremia, improved. We will discontinue IV fluids. 4. Hypertension, well controlled with carvedilol and Lotensin. 5. Depression and dementia. Continue Lexapro, Aricept and Namenda. 7. Abdominal CT showing chronic changes of atrophy and small vessel disease. Will add baby aspirin. The patient's chest x-ray upon presentation did have bilateral interstitial infiltrate/edema however, clinically he does not appear to have any respiratory issues. Will obtain a followup chest x-ray. We will also request an echocardiogram to assess LV function. Plan of care discussed with nursing staff and social economist. Dictated By: MARTA MCGUIRE MD AB/BIANCA Conf#: [id number] DID#: [id number] CC: KAREN TOLEDO NP; GURJIT ANTUNEZ MD;*EndCC* MTDD
[2018-05-17 19:46] VITALS: BP 114/61; PULSE 63; RESP 18
[2018-05-17 19:50] VITALS: BP 128/69; PULSE 95; RESP 18
[2018-05-17 19:57] VITALS: BP 123/70; PULSE 95; RESP 18
[2018-05-17] MEDS: ESCITALOPRAM 10 MG TAB PO SCH (20:30)
[2018-05-17] MEDS: TAMSULOSIN (SR) 0.4 MG CAP PO SCH (20:30)
[2018-05-18 02:11] VITALS: BP 98/56; PULSE 74; RESP 18
[2018-05-18] MEDS: PANTOPRAZOLE (EC) 40 MG TAB PO SCH (06:37)
[2018-05-18 08:00] VITALS: BP 153/89; PULSE 84; RESP 18
[2018-05-18] MEDS: DUTASTERIDE 0.5 MG CAP PO SCH (08:23)
[2018-05-18] MEDS: RISPERIDONE 0.25 MG TAB PO SCH (08:23)
[2018-05-18] MEDS: DOCUSATE SODIUM 250 MG CAP PO SCH ×2 (08:23→20:42)
[2018-05-18] MEDS: BENAZEPRIL 40 MG TAB PO SCH (08:23)
[2018-05-18] MEDS: MEMANTINE 10 MG TAB PO SCH (08:23)
[2018-05-18] MEDS: DONEPEZIL 10 MG TAB PO SCH (08:23)
[2018-05-18] MEDS: ASPIRIN (EC) 81 MG TAB PO SCH (08:23)
[2018-05-18] MEDS: CHOLECALCIFEROL 400 UNITS TAB PO SCH (08:23)
--- NOTE | 2018-05-18 10:28 | RADRPT ---
Echocardiogram Report Patient Name: ASHVIN MIRELESPatient ID: [id number] : 1935 (82y 9m)Study Date: 05/17/2018 1:19:32 PM Gender: MAccession #: [id number] Tech: Carl RUST Location: [id number] Ref.Physician: MARTA MCGUIRE Height(Cm): BSA: Weight(Kg): Quality: Technically Difficult StudyAccount #: Procedures: Echocardiographic Report: Transthoracic echocardiogram with complete 2D, M-Mode, and doppler examination. Indications: Evaluate Left Ventricular function. Measurements: 2D/M Mode Doppler Measurement Value Normal Range Measurement Value Normal Range LVIDd 2D 4.0 [ 4.2 - 5.8 ] cm AV Peak Neri 1.0 [ 100.0 - 170.0 ] cm/sec LVIDs 2D 2.6 [ 2.5 - 4.0 ] cm AV Peak PG 4.0 [ 2.0 - 9.0 ] mmHg LVPWd 2D 1.3 [ 0.6 - 1.0 ] cm LVOT Peak Neri 0.6 [ 70.0 - 110.0 ] cm/sec IVSd 2D 1.3 [ 0.6 - 1.0 ] cm LVOT Peak PG 2.0 [ 2.0 - 6.0 ] mmHg IVS/LVPW 2D 1.0 ratio MV E Peak Neri 0.6 [ 60.0 - 130.0 ] cm/sec AoR Diam 2D 3.4 [ 2.6 - 3.4 ] cm MV A Peak Neri 0.9 [ 100.0 - 120.0 ] cm/sec LA/Ao 2D 1 ratio MV E/A 0.7 [ 0.8 - 1.5 ] ratio LA Dimen 2D 4.3 [ 3.0 - 4.0 ] cm MV Decel Time 278 [ 104 - 258 ] msec Lat E` Neri 0.1 [ 10.0 - 15.0 ] cm/sec Med E` Neri 0.0 cm/sec MV E/A 0.7 [ 0.8 - 1.5 ] ratio TR Peak Neri 2.2 [ 100.0 - 280.0 ] cm/sec TR Peak PG 20.0 mmHg RVSP 35.0 [ 10.0 - 36.0 ] mmHg Findings: Left Ventricle: Normal left ventricular systolic function. Normal left ventricular cavity size. Mild concentric left ventricular hypertrophy. Ejection fraction is visually estimated at 55 %. Tissue Doppler/Mitral Doppler indices are consistent with impaired relaxation (Stage I diastolic dysfunction). Right Ventricle: Normal right ventricular size. Normal right ventricular systolic function. Left Atrium: There is mild enlargement of left atrium. Right Atrium: The right atrium is normal in size. Mitral Valve: Mild mitral leaflet calcification. Mild mitral annular calcification. Trace mitral regurgitation. Aortic Valve: No significant aortic stenosis or insufficiency. Aortic cusps appear mildly calcified. Trace aortic valve regurgitation. Tricuspid Valve: Normal appearance of the tricuspid valve. Estimated peak PA systolic pressure 35 mmHg. There is mild tricuspid regurgitation. Pulmonic Valve: Pulmonic valve not well visualized. There is trace pulmonic regurgitation. Pericardium: Normal pericardium with no significant pericardial effusion. Aorta: Normal aortic root. IVC: Dilated IVC without respiratory collapse consistent with elevated right atrial pressure. Conclusions: Normal left ventricular systolic function. Normal left ventricular cavity size. Mild concentric left ventricular hypertrophy. Ejection fraction is visually estimated at 55 %. Tissue Doppler/Mitral Doppler indices are consistent with impaired relaxation (Stage I diastolic dysfunction). Mild mitral leaflet calcification. Mild mitral annular calcification. Trace mitral regurgitation. Normal appearance of the tricuspid valve. Estimated peak PA systolic pressure 35 mmHg. There is mild tricuspid regurgitation. Electronically Signed By: Jett Carter 2018-05-18 10:28:04 PST
--- NOTE | 2018-05-18 13:43 | CONS ---
Assessment/Plan Assessment/Plan Hospital Course (Demo Recall) #leukopenia #thrombocytopenia #Alzheimer dementia -pt did have an abdominal ultrasound done in 08/2017 that demonstrated fatty liver which may be the underlying cause of patient's pancytopenia -although given how persistent this pancytopenia has been we need to rule out MDS at this time -will order bone marrow bx -will also order vitmian b12/ folate/ homocysteine and methylmalonic acid levels -SPEP ordered -LDH ordered to rule out aggressive underlying malignancy Thank you for the opportunity to participate in this patients care A total of 40 minutes of face to face time was spent speaking with the patient, of which greater than 50% was spent in counseling and coordination of care and the detailed question and answer session. Consultation Date/Type/Reason Admit Date/Time May 13, 2018 at 20:10 Date of Consultation: May 18, 2018 Type of Consult Hematology Reason for Consultation Thrombocytopenia Requesting Provider: MARTA MCGUIRE MD Date/Time of Note DATE: 05/18/18 TIME: 13:25 Hx of Present Illness 82-year-old gentleman with multiple medical problems including hypertension, dyslipidemia, depression, dementia, known to me from prior admission who ho presented to [facility] from his SNF with confusion. On labs patient is noted to have chronic pancytopenia. 05/17/18 CBC WBC 2.9, Hg 12.1 platelets 109. Pt was briefly on antibiotics for abnormal UA but his has since been discontinued. During his last admission in August 2017 pt had an abdominal ultrasound which did demonstrates fatty liver. unable to obtain given patient's advanced dementia Genitourinary: no complaints Musculoskeletal: back pain Past Medical History Hypertension BPH Dementia COPD Psychosis Depression Insomnia GERD Osteoporosis Home Meds Reported Medications Simvastatin* (Zocor*) 40 Mg Tablet, 40 MG PO QHS, #30 TAB 05/13/18 Icosapent Ethyl (VASCEPA) 1 Gm Capsule, 1 GM PO QHS, CAP 05/13/18 Risperidone* (Risperdal*) 1 Mg Tablet, 0.5 MG PO DAILY, TAB 05/13/18 Memantine* (Namenda*) 10 Mg Tablet, 10 MG PO DAILY, #30 TAB 05/13/18 Benazepril Hcl* (Lotensin*) 40 Mg Tablet, 40 MG PO DAILY, #30 TAB HOLD FOR SBP<110 OR [place]<60 05/13/18 Escitalopram Oxalate* (Lexapro*) 5 Mg Tablet, 5 MG PO Q OTHER DAY, #30 TAB 05/13/18 Tamsulosin Hcl* (Flomax*) 0.4 Mg Cap.er.24h, 0.4 MG PO HS, CAP 05/13/18 Carvedilol* (Coreg*) 6.25 Mg Tablet, 6.25 MG PO BID, #60 TAB HOLD FOR SBP<110 OR [place]<60 05/13/18 Docusate Sodium* (Colace*) 250 Mg Capsule, 250 MG PO TID, #60 CAP 05/13/18 Cholecalciferol* (Vitamin D*) 400 Unit Tablet, 400 UNIT PO DAILY, TAB 05/13/18 Dutasteride* (Avodart*) 0.5 Mg Capsule, 0.5 MG PO DAILY, CAP 05/13/18 Donepezil* (Aricept*) 10 Mg Tablet, 10 MG PO DAILY, TAB 05/13/18 Acetaminophen* (Acetaminophen*) 650 Mg Tablet, 650 MG PO Q6H PRN for PAIN LEVEL -01/20, #30 TAB 05/13/18 Discontinued Reported Medications Icosapent Ethyl (VASCEPA) 1 Gm Capsule, 1 GM PO BID, CAP 08/13/17 Tramadol HCl (Tramadol HCl) 50 Mg Tablet, 50 MG PO Q6H PRN for PAIN, #120 TAB 08/13/17 Tamsulosin Hcl* (Tamsulosin Hcl*) 0.4 Mg Cap.er.24h, 0.4 MG PO HS, CAP 08/13/17 Simvastatin* (Zocor*) 40 Mg Tablet, 40 MG PO QHS, #30 TAB 08/13/17 Risperidone* (Risperidone*) 1 Mg Tablet, 1 MG PO DAILY, TAB 08/13/17 Omeprazole* (Omeprazole*) 20 Mg Capsule.dr, 20 MG PO DAILY, #30 CAP 08/13/17 Memantine* (Namenda*) 10 Mg Tablet, 10 MG PO DAILY, #30 TAB 08/13/17 Escitalopram Oxalate* (Escitalopram Oxalate*) 5 Mg Tablet, 5 MG PO DAILY, #30 TAB 08/13/17 Dutasteride* (Avodart*) 0.5 Mg Capsule, 0.5 MG PO DAILY, CAP 08/13/17 Donepezil* (Donepezil*) 10 Mg Tablet, 10 MG PO DAILY, #30 TAB 08/13/17 Docusate Sodium* (Colace*) 250 Mg Capsule, 250 MG PO TID, #30 CAP 08/13/17 Cholecalciferol* (Vitamin D*) 400 Unit Tablet, 400 UNIT PO DAILY, TAB 08/13/17 Carvedilol* (Carvedilol*) 6.25 Mg Tablet, 6.25 MG PO BID, #60 TAB HOLD IF SBP<110 OR HR<60 08/13/17 Benazepril Hcl* (Benazepril Hcl*) 40 Mg Tablet, 40 MG PO DAILY, #30 TAB 08/13/17 Azelastine Hcl* (Azelastine Hcl*) 137 Mcg/0.137 Ml [place].pump, 1 SPRAY NASAL BID, #1 EA TO EACH NOSTRIL 08/13/17 Medications Current Medications IV Flush (NS 3 ml) 3 ml PER PROTOCOL IV ; Start 05/13/18 at 21:00 Ondansetron HCl (Zofran Inj) 4 mg Q6H PRN IV NAUSEA/VOMITING; Start 05/13/18 at 21:00 Acetaminophen (Tylenol Tab) 650 mg Q6H PRN PO .PAIN 1-3 OR TEMP Last administered on 05/14/18at 14:05; Admin Dose 650 MG; Start 05/13/18 at 21:00 Morphine Sulfate (morphine) 2 mg Q4H PRN IV .SEVERE PAIN 7-10; Start 05/13/18 at 21:00 Acetaminophen (Tylenol Tab) 650 mg Q6H PRN PO PAIN LEVEL 1-10/10; Start 05/14/18 at 19:00 Benazepril HCl (Lotensin) 40 mg DAILY PO Last administered on 05/18/18at 08:23; Admin Dose 40 MG; Start 05/15/18 at 09:00 Carvedilol (Coreg) 6.25 mg BID PO Last administered on 05/18/18at 08:23; Admin Dose 6.25 MG; Start 05/14/18 at 21:00 Cholecalciferol (Vitamin D) 400 units DAILY PO Last administered on 05/18/18at 08:23; Admin Dose 400 UNITS; Start 05/15/18 at 09:00 Docusate Sodium (Colace) 250 mg BID PO Last administered on 05/18/18 08:23; Admin Dose 250 MG; Start 05/14/18 at 21:00 Donepezil HCl (Aricept) 10 mg DAILY PO Last administered on 05/18/18 08:23; Admin Dose 10 MG; Start 05/15/18 at 09:00 Dutasteride (Avodart) 0.5 mg DAILY PO Last administered on 05/18/18 08:23; Admin Dose 0.5 MG; Start 05/15/18 at 09:00 Memantine (Namenda) 10 mg DAILY PO Last administered on 05/18/18 08:23; Admin Dose 10 MG; Start 05/15/18 at 09:00 Risperidone (Risperdal) 0.5 mg DAILY PO Last administered on 05/18/18 08:23; Admin Dose 0.5 MG; Start 05/15/18 at 09:00 Tamsulosin HCl (Flomax) 0.4 mg HS PO Last administered on 05/17/18 20:30; Admin Dose 0.4 MG; Start 05/14/18 at 21:00 Escitalopram Oxalate (Lexapro) 5 mg QHS PO Last administered on 05/17/18 20:30; Admin Dose 5 MG; Start 05/15/18 at 21:00 Pantoprazole (Protonix Tab) 40 mg DAILY@06 PO Last administered on 05/18/18 06:37; Admin Dose 40 MG; Start 05/15/18 at 06:00 Aspirin (Halfprin) 81 mg DAILY PO Last administered on 05/18/18 08:23; Admin Dose 81 MG; Start 05/17/18 at 12:30 Allergies: Coded Allergies: No Known Allergy (Unverified , 05/13/18) Past Surgical History Past Surgical Hx: no surgical history Family History Significant Family History: no pertinent family hx Social History Alcohol Use: none Smoking Status: Never smoker Drug Use: none Exam/Review of Systems Exam Vitals Vital Signs Date Temp Pulse Resp B/P (MAP) Pulse Ox O2 O2 Flow FiO2 Time Delivery Rate 05/18/18 97.7 84 18 153/89 91 Room Air 08:00 (110) Intake and Output 05/17/18 05/17/18 05/18/18 1515:00 23:00 07:00 IntakeIntake Total 940 ml OutputOutput Total 750 ml BalanceBalance 190 ml Psych: confusion Head: normocephalic Eyes: nl conjunctiva ENMT: nl external ears & nose Neck: supple, non-tender Respiratory: clear to auscultation Cardiovascular: regular rate and rhythm Gastrointestinal: soft Musculoskeletal: nl extremities to inspection Extremities: normal pulses Neurological: [employer] II-XII intact Results Result Diagram: 05/17/18 0530 05/18/18 0744 Results 24hrs Laboratory Tests Test 05/18/18 07:44 Sodium Level 140 Potassium Level 4.1 Chloride Level 107 Carbon Dioxide Level 29 Anion Gap 4 L Blood Urea Nitrogen 13 Creatinine 0.75 Est Glomerular Filtrat Rate mL/min Glucose Level 90 Calcium Level 9.3 Medications Medication Current Medications IV Flush (NS 3 ml) 3 ml PER PROTOCOL IV ; Start 05/13/18 at 21:00 Ondansetron HCl (Zofran Inj) 4 mg Q6H PRN IV NAUSEA/VOMITING; Start 05/13/18 at 21:00 Acetaminophen (Tylenol Tab) 650 mg Q6H PRN PO .PAIN 1-3 OR TEMP Last administered on 05/14/18at 14:05; Admin Dose 650 MG; Start 05/13/18 at 21:00 Morphine Sulfate (morphine) 2 mg Q4H PRN IV .SEVERE PAIN 7-10; Start 05/13/18 at 21:00 Acetaminophen (Tylenol Tab) 650 mg Q6H PRN PO PAIN LEVEL 1-10/10; Start 05/14/18 at 19:00 Benazepril HCl (Lotensin) 40 mg DAILY PO Last administered on 05/18/18at 08:23; Admin Dose 40 MG; Start 05/15/18 at 09:00 Carvedilol (Coreg) 6.25 mg BID PO Last administered on 05/18/18 08:23; Admin D ose 6.25 MG; Start 05/14/18 at 21:00 Cholecalciferol (Vitamin D) 400 units DAILY PO Last administered on 05/18/18 08:23; Admin Dose 400 UNITS; Start 05/15/18 at 09:00 Docusate Sodium (Colace) 250 mg BID PO Last administered on 05/18/18at 08:23; Admin Dose 250 MG; Start 05/14/18 at 21:00 Donepezil HCl (Aricept) 10 mg DAILY PO Last administered on 05/18/18 08:23; Admin Dose 10 MG; Start 05/15/18 at 09:00 Dutasteride (Avodart) 0.5 mg DAILY PO Last administered on 05/18/18 08:23; Admin Dose 0.5 MG; Start 05/15/18 at 09:00 Memantine (Namenda) 10 mg DAILY PO Last administered on 05/18/18 08:23; Admin Dose 10 MG; Start 05/15/18 at 09:00 Risperidone (Risperdal) 0.5 mg DAILY PO Last administered on 05/18/18 08:23; Admin Dose 0.5 MG; Start 05/15/18 at 09:00 Tamsulosin HCl (Flomax) 0.4 mg HS PO Last administered on 05/17/18 20:30; Admin Dose 0.4 MG; Start 05/14/18 at 21:00 Escitalopram Oxalate (Lexapro) 5 mg QHS PO Last administered on 05/17/18 20:30; Admin Dose 5 MG; Start 05/15/18 at 21:00 Pantoprazole (Protonix Tab) 40 mg DAILY@06 PO Last administered on 05/18/18 06:37; Admin Dose 40 MG; Start 05/15/18 at 06:00 Aspirin (Halfprin) 81 mg DAILY PO Last administered on 05/18/18 08:23; Admin Dose 81 MG; Start 05/17/18 at 12:30 RAMILA YOUNG M.D. May 18, 2018 13:38
--- NOTE | 2018-05-18 16:04 | PN ---
Date/Time of Note Date/Time of Note DATE: 05/18/18 TIME: 15:58 Assessment/Plan VTE Prophylaxis Risk score (from [facility])>0 risk: 3 SCD applied (from [facility]): Yes Pharmacological prophylaxis: NA/contraindicated Pharm contraindication: thrombocytopenia Lines/Catheters IV Catheter Type (from [facility]): Peripheral IV Urinary Cath still in place: No Assessment/Plan Hospital Course Patient remains hemodynamically stable, afebrile, 2D echo with ejection fraction of 55%, chest x-ray with atelectasis versus early infiltrates patient has no fever will start incentive spirometer. Patient is status post evaluation by Dr. Carrera in hematology consultation, plan for bone marrow biopsy. Assessment/Plan -Pancytopenia. Dr. Carrera is following in hematology consultation. Plan for bone marrow biopsy. -Hypertension, continue Coreg and lisinopril. -Preserved ejection fraction per 2D echo -Depression, continue Lexapro -Dementia, continue Aricept and Namenda -Atelectasis versus minimal infiltrate in the bilateral lower lobes. No fever. Encourage incentive spirometer use. -BPH, continue tamsulosin and finasteride. Further recommendations based on clinical course. Plan of care discussed with Dr. Becker. Result Diagram: 05/17/18 0530 05/18/18 0744 Results 24hrs Laboratory Tests Test 05/18/18 07:44 Sodium Level 140 Potassium Level 4.1 Chloride Level 107 Carbon Dioxide Level 29 Anion Gap 4 L Blood Urea Nitrogen 13 Creatinine 0.75 Est Glomerular Filtrat Rate mL/min Glucose Level 90 Calcium Level 9.3 Exam/Review of Systems Exam Vitals Vital Signs Date Temp Pulse Resp B/P (MAP) Pulse Ox O2 O2 Flow FiO2 Time Delivery Rate 05/18/18 97.7 84 18 153/89 91 Room Air 08:00 (110) Intake and Output 05/17/18 05/17/18 05/18/18 1515:00 23:00 07:00 IntakeIntake Total 940 ml OutputOutput Total 750 ml BalanceBalance 190 ml Constitutional: alert, oriented Respiratory: diminished breath sounds Cardiovascular: nl pulses Gastrointestinal: soft, non-tender Musculoskeletal: nl extremities to inspection Extremities: normal pulses Results Results 24hrs Laboratory Tests Test 05/18/18 07:44 Sodium Level 140 Potassium Level 4.1 Chloride Level 107 Carbon Dioxide Level 29 Anion Gap 4 L Blood Urea Nitrogen 13 Creatinine 0.75 Est Glomerular Filtrat Rate mL/min Glucose Level 90 Calcium Level 9.3 Medications Medication Current Medications IV Flush (NS 3 ml) 3 ml PER PROTOCOL IV ; Start 05/13/18 at 21:00 Ondansetron HCl (Zofran Inj) 4 mg Q6H PRN IV NAUSEA/VOMITING; Start 05/13/18 at 21:00 Acetaminophen (Tylenol Tab) 650 mg Q6H PRN PO .PAIN 1-3 OR TEMP Last administered on 05/14/18 14:05; Admin Dose 650 MG; Start 05/13/18 at 21:00 Morphine Sulfate (morphine) 2 mg Q4H PRN IV .SEVERE PAIN 7-10; Start 05/13/18 at 21:00 Acetaminophen (Tylenol Tab) 650 mg Q6H PRN PO PAIN LEVEL 1-10/10; Start 05/14/18 at 19:00 Benazepril HCl (Lotensin) 40 mg DAILY PO Last administered on 05/18/18 08:23; Admin Dose 40 MG; Start 05/15/18 at 09:00 Carvedilol (Coreg) 6.25 mg BID PO Last administered on 05/18/18 08:23; Admin Dose 6.25 MG; Start 05/14/18 at 21:00 Cholecalciferol (Vitamin D) 400 units DAILY PO Last administered on 05/18/18 08:23; Admin Dose 400 UNITS; Start 05/15/18 at 09:00 Docusate Sodium (Colace) 250 mg BID PO Last administered on 05/18/18 08:23; Admin Dose 250 MG; Start 05/14/18 at 21:00 Donepezil HCl (Aricept) 10 mg DAILY PO Last administered on 05/18/18 08:23; Admin Dose 10 MG; Start 05/15/18 at 09:00 Dutasteride (Avodart) 0.5 mg DAILY PO Last administered on 05/18/18 08:23; Adm in Dose 0.5 MG; Start 05/15/18 at 09:00 Memantine (Namenda) 10 mg DAILY PO Last administered on 05/18/18 08:23; Admin Dose 10 MG; Start 05/15/18 at 09:00 Risperidone (Risperdal) 0.5 mg DAILY PO Last administered on 05/18/18 08:23; Admin Dose 0.5 MG; Start 05/15/18 at 09:00 Tamsulosin HCl (Flomax) 0.4 mg HS PO Last administered on 05/17/18 20:30; Admin Dose 0.4 MG; Start 05/14/18 at 21:00 Escitalopram Oxalate (Lexapro) 5 mg QHS PO Last administered on 05/17/18 20:30; Admin Dose 5 MG; Start 05/15/18 at 21:00 Pantoprazole (Protonix Tab) 40 mg DAILY@06 PO Last administered on 05/18/18 06:37; Admin Dose 40 MG; Start 05/15/18 at 06:00 Aspirin (Halfprin) 81 mg DAILY PO Last administered on 05/18/18 08:23; Admin Dose 81 MG; Start 05/17/18 at 12:30 JOYCE CHOW May 18, 2018 16:04
[2018-05-18] MEDS ORDERED: ALBUTEROL/IPRATROPIUM (NEB) 3 ML AMP HHN PRN (16:30)
[2018-05-18 19:46] VITALS: BP 138/70; PULSE 73; RESP 18
[2018-05-18] MEDS: ESCITALOPRAM 10 MG TAB PO SCH (20:41)
[2018-05-18] MEDS: TAMSULOSIN (SR) 0.4 MG CAP PO SCH (20:42)
[2018-05-19 01:41] VITALS: BP 145/76; PULSE 85; RESP 18
[2018-05-19] MEDS: PANTOPRAZOLE (EC) 40 MG TAB PO SCH (06:00)
[2018-05-19 08:05] VITALS: BP 134/76; PULSE 72; RESP 18
[2018-05-19] MEDS: ASPIRIN (EC) 81 MG TAB PO SCH ×2 (09:00→19:42)
[2018-05-19] MEDS: DUTASTERIDE 0.5 MG CAP PO SCH (09:16)
[2018-05-19] MEDS: CHOLECALCIFEROL 400 UNITS TAB PO SCH (09:16)
[2018-05-19] MEDS: DOCUSATE SODIUM 250 MG CAP PO SCH ×2 (09:16→21:06)
[2018-05-19] MEDS: DONEPEZIL 10 MG TAB PO SCH (09:16)
[2018-05-19] MEDS: MEMANTINE 10 MG TAB PO SCH (09:18)
[2018-05-19] MEDS: BENAZEPRIL 40 MG TAB PO SCH (09:18)
[2018-05-19] MEDS: RISPERIDONE 0.25 MG TAB PO SCH (09:19)
[2018-05-19 14:00] VITALS: BP 132/81; PULSE 72
--- NOTE | 2018-05-19 14:06 | CONS ---
Assessment/Plan Assessment/Plan Hospital Course (Demo Recall) #leukopenia #thrombocytopenia #Alzheimer dementia -pt did have an abdominal ultrasound done in 08/2017 that demonstrated fatty liver which may be the underlying cause of patient's pancytopenia -although given how persistent this pancytopenia has been we need to rule out MDS at this time -will order bone marrow bx -no obvious evidence of vitamin b12 or folate deficiency -SPEP ordered -LDH ordered to rule out aggressive underlying malignancy Thank you for the opportunity to participate in this patients care A total of 40 minutes of face to face time was spent speaking with the patient, of which greater than 50% was spent in counseling and coordination of care and the detailed question and answer session. Consultation Date/Type/Reason Admit Date/Time May 15, 2018 at 12:37 Initial Consult Date 05/18/18 Type of Consult Hematology Reason for Consultation pancytopenia Requesting Provider: MARTA MCGUIRE MD Date/Time of Note DATE: 05/19/18 TIME: 14:03 24 HR Interval Summary Free Text/Dictation no acute overnight events Exam/Review of Systems Exam Vitals Vital Signs Date Temp Pulse Resp B/P (MAP) Pulse Ox O2 O2 Flow FiO2 Time Delivery Rate 05/19/18 97.9 72 18 134/76 96 Room Air 08:05 (95) Intake and Output 05/18/18 05/18/18 05/19/18 1515:00 23:00 07:00 IntakeIntake Total 1060 ml 240 ml OutputOutput Total 1050 ml 900 ml BalanceBalance 10 ml 240 ml -900 ml Psych: confusion Head: normocephalic Eyes: nl conjunctiva ENMT: nl external ears & nose Neck: supple, non-tender Respiratory: clear to auscultation Cardiovascular: regular rate and rhythm Gastrointestinal: soft Musculoskeletal: nl extremities to inspection Results Result Diagram: 05/19/18 0548 05/19/18 0548 Results 24hrs Laboratory Tests Test 05/18/18 14:13 05/19/18 05:48 Vitamin B12 Level 752 Methylmalonic Acid Pending Folate 11.1 Homocysteine (Cardiovascular) 9.9 White Blood Count 3.1 L Red Blood Count 4.73 Hemoglobin 12.5 L Hematocrit 39.4 L Mean Corpuscular Volume 83.3 Mean Corpuscular Hemoglobin 26.4 L Mean Corpuscular Hemoglobin Concent 31.7 L Red Cell Distribution Width 15.4 H Platelet Count 110 L Mean Platelet Volume 11.1 H Immature Granulocytes % 0.600 H Neutrophils % 33.9 L Lymphocytes % 45.1 Monocytes % 19.8 H Eosinophils % 0.3 Basophils % 0.3 Nucleated Red Blood Cells % 0.0 Immature Granulocytes # 0.020 Neutrophils # 1.0 L Lymphocytes # 1.4 Monocytes # 0.6 Eosinophils # 0.0 Basophils # 0.0 Nucleated Red Blood Cells # 0.0 Sodium Level 142 Potassium Level 4.0 Chloride Level 105 Carbon Dioxide Level 28 Anion Gap 9 # Blood Urea Nitrogen 16 Creatinine 0.81 Est Glomerular Filtrat Rate mL/min Glucose Level 95 Calcium Level 9.6 Medications Medication Current Medications IV Flush (NS 3 ml) 3 ml PER PROTOCOL IV ; Start 05/13/18 at 21:00 Ondansetron HCl (Zofran Inj) 4 mg Q6H PRN IV NAUSEA/VOMITING; Start 05/13/18 at 21:00 Acetaminophen (Tylenol Tab) 650 mg Q6H PRN PO .PAIN 1-3 OR TEMP Last administered on 05/14/18at 14:05; Admin Dose 650 MG; Start 05/13/18 at 21:00 Morphine Sulfate (morphine) 2 mg Q4H PRN IV .SEVERE PAIN 7-10; Start 05/13/18 at 21:00 Acetaminophen (Tylenol Tab) 650 mg Q6H PRN PO PAIN LEVEL 1-10/10; Start 05/14/18 at 19:00 Benazepril HCl (Lotensin) 40 mg DAILY PO Last administered on 05/19/18at 09:18; Admin Dose 40 MG; Start 05/15/18 at 09:00 Carvedilol (Coreg) 6.25 mg BID PO Last administered on 05/19/18 09:17; Admin Dose 6.25 MG; Start 05/14/18 at 21:00 Cholecalciferol (Vitamin D) 400 units DAILY PO Last administered on 05/19/18at 09:16; Admin Dose 400 UNITS; Start 05/15/18 at 09:00 Docusate Sodium (Colace) 250 mg BID PO Last administered on 05/19/18at 09:16; Admin Dose 250 MG; Start 05/14/18 at 21:00 Donepezil HCl (Aricept) 10 mg DAILY PO Last administered on 05/19/18 09:16; Admin Dose 10 MG; Start 05/15/18 at 09:00 Dutasteride (Avodart) 0.5 mg DAILY PO Last administered on 05/19/18 09:16; Admin Dose 0.5 MG; Start 05/15/18 at 09:00 Memantine (Namenda) 10 mg DAILY PO Last administered on 05/19/18 09:18; Admin Dose 10 MG; Start 05/15/18 at 09:00 Risperidone (Risperdal) 0.5 mg DAILY PO Last administered on 05/19/18 09:19; Admin Dose 0.5 MG; Start 05/15/18 at 09:00 Tamsulosin HCl (Flomax) 0.4 mg HS PO Last administered on 05/18/18 20:42; Admin Dose 0.4 MG; Start 05/14/18 at 21:00 Escitalopram Oxalate (Lexapro) 5 mg QHS PO Last administered on 05/18/18 20:41; Admin Dose 5 MG; Start 05/15/18 at 21:00 Pantoprazole (Protonix Tab) 40 mg DAILY@06 PO Last administered on 05/19/18 06:00; Admin Dose 40 MG; Start 05/15/18 at 06:00 Aspirin (Halfprin) 81 mg DAILY PO Last administered on 05/18/18 08:23; Admin Dose 81 MG; Start 05/17/18 at 12:30 Albuterol/ Ipratropium (Duoneb) 3 ml Q4H RESP THERAPY PRN HHN SHORTNESS OF BREATH; Start 05/18/18 at 16:30 RAMILA YOUNG M.D. May 19, 2018 14:06
--- NOTE | 2018-05-19 15:28 | PN ---
Date/Time of Note Date/Time of Note DATE: 05/19/18 TIME: 15:27 Assessment/Plan VTE Prophylaxis Risk score (from [facility] – [place], [place]0 risk: 4 SCD applied (from [facility] [place], [place]): Yes Pharmacological prophylaxis: NA/contraindicated Pharm contraindication: thrombocytopenia Lines/Catheters IV Catheter Type (from [facility]): Peripheral IV Urinary Cath still in place: No Assessment/Plan Hospital Course Plan for bone marrow biopsy tomorrow. Assessment/Plan -Pancytopenia. Dr. Carrera is following in hematology consultation. Plan for bone marrow biopsy. -Hypertension, continue Coreg and lisinopril. -Preserved ejection fraction per 2D echo -Depression, continue Lexapro -Dementia, continue Aricept and Namenda -Atelectasis versus minimal infiltrate in the bilateral lower lobes. No fever. Encourage incentive spirometer use. -BPH, continue tamsulosin and finasteride. Further recommendations based on clinical course. Plan of care discussed with Dr. Becker. Result Diagram: 05/19/18 0548 05/19/18 0548 Results 24hrs Laboratory Tests Test 05/19/18 05:46 05/19/18 05:48 Lactate Dehydrogenase 312 L White Blood Count 3.1 L Red Blood Count 4.73 Hemoglobin 12.5 L Hematocrit 39.4 L Mean Corpuscular Volume 83.3 Mean Corpuscular Hemoglobin 26.4 L Mean Corpuscular Hemoglobin Concent 31.7 L Red Cell Distribution Width 15.4 H Platelet Count 110 L Mean Platelet Volume 11.1 H Immature Granulocytes % 0.600 H Neutrophils % 33.9 L Lymphocytes % 45.1 Monocytes % 19.8 H Eosinophils % 0.3 Basophils % 0.3 Nucleated Red Blood Cells % 0.0 Immature Granulocytes # 0.020 Neutrophils # 1.0 L Lymphocytes # 1.4 Monocytes # 0.6 Eosinophils # 0.0 Basophils # 0.0 Nucleated Red Blood Cells # 0.0 Sodium Level 142 Potassium Level 4.0 Chloride Level 105 Carbon Dioxide Level 28 Anion Gap 9 # Blood Urea Nitrogen 16 Creatinine 0.81 Est Glomerular Filtrat Rate mL/min Glucose Level 95 Calcium Level 9.6 Exam/Review of Systems Exam Vitals Vital Signs Date Temp Pulse Resp B/P (MAP) Pulse Ox O2 O2 Flow FiO2 Time Delivery Rate 05/19/18 97.9 72 132/81 97 Room Air 14:00 (98) 05/19/18 18 08:05 Intake and Output 05/18/18 05/18/18 05/19/18 1515:00 23:00 07:00 IntakeIntake Total 1060 ml 240 ml OutputOutput Total 1050 ml 900 ml BalanceBalance 10 ml 240 ml -900 ml Exam Constitutional: alert, oriented Respiratory: diminished breath sounds Cardiovascular: nl pulses Gastrointestinal: soft, non-tender Musculoskeletal: nl extremities to inspection Extremities: normal pulses Results Results 24hrs Laboratory Tests Test 05/19/18 05:46 05/19/18 05:48 Lactate Dehydrogenase 312 L White Blood Count 3.1 L Red Blood Count 4.73 Hemoglobin 12.5 L Hematocrit 39.4 L Mean Corpuscular Volume 83.3 Mean Corpuscular Hemoglobin 26.4 L Mean Corpuscular Hemoglobin Concent 31.7 L Red Cell Distribution Width 15.4 H Platelet Count 110 L Mean Platelet Volume 11.1 H Immature Granulocytes % 0.600 H Neutrophils % 33.9 L Lymphocytes % 45.1 Monocytes % 19.8 H Eosinophils % 0.3 Basophils % 0.3 Nucleated Red Blood Cells % 0.0 Immature Granulocytes # 0.020 Neutrophils # 1.0 L Lymphocytes # 1.4 Monocytes # 0.6 Eosinophils # 0.0 Basophils # 0.0 Nucleated Red Blood Cells # 0.0 Sodium Level 142 Potassium Level 4.0 Chloride Level 105 Carbon Dioxide Level 28 Anion Gap 9 # Blood Urea Nitrogen 16 Creatinine 0.81 Est Glomerular Filtrat Rate mL/min Glucose Level 95 Calcium Level 9.6 Medications Medication Current Medications IV Flush (NS 3 ml) 3 ml PER PROTOCOL IV ; Start 05/13/18 at 21:00 Ondansetron HCl (Zofran Inj) 4 mg Q6H PRN IV NAUSEA/VOMITING; Start 05/13/18 at 21:00 Acetaminophen (Tylenol Tab) 650 mg Q6H PRN PO .PAIN 1-3 OR TEMP Last administered on 05/14/18at 14:05; Admin Dose 650 MG; Start 05/13/18 at 21:00 Morphine Sulfate (morphine) 2 mg Q4H PRN IV .SEVERE PAIN 7-10; Start 05/13/18 a t 21:00 Acetaminophen (Tylenol Tab) 650 mg Q6H PRN PO PAIN LEVEL 1-10/10; Start 05/14/18 at 19:00 Benazepril HCl (Lotensin) 40 mg DAILY PO Last administered on 05/19/18 09:18; Admin Dose 40 MG; Start 05/15/18 at 09:00 Carvedilol (Coreg) 6.25 mg BID PO Last administered on 05/19/18 09:17; Admin Dose 6.25 MG; Start 05/14/18 at 21:00 Cholecalciferol (Vitamin D) 400 units DAILY PO Last administered on 05/19/18 09:16; Admin Dose 400 UNITS; Start 05/15/18 at 09:00 Docusate Sodium (Colace) 250 mg BID PO Last administered on 05/19/18 09:16; Admin Dose 250 MG; Start 05/14/18 at 21:00 Donepezil HCl (Aricept) 10 mg DAILY PO Last administered on 05/19/18 09:16; Admin Dose 10 MG; Start 05/15/18 at 09:00 Dutasteride (Avodart) 0.5 mg DAILY PO Last administered on 05/19/18 09:16; Admin Dose 0.5 MG; Start 05/15/18 at 09:00 Memantine (Namenda) 10 mg DAILY PO Last administered on 05/19/18 09:18; Admin Dose 10 MG; Start 05/15/18 at 09:00 Risperidone (Risperdal) 0.5 mg DAILY PO Last administered on 05/19/18 09:19; Admin Dose 0.5 MG; Start 05/15/18 at 09:00 Tamsulosin HCl (Flomax) 0.4 mg HS PO Last administered on 05/18/18 20:42; Admin Dose 0.4 MG; Start 05/14/18 at 21:00 Escitalopram Oxalate (Lexapro) 5 mg QHS PO Last administered on 05/18/18 20:41; Admin Dose 5 MG; Start 05/15/18 at 21:00 Pantoprazole (Protonix Tab) 40 mg DAILY@06 PO Last administered on 05/19/18 06:00; Admin Dose 40 MG; Start 05/15/18 at 06:00 Aspirin (Halfprin) 81 mg DAILY PO Last administered on 05/18/18 08:23; Admin Dose 81 MG; Start 05/17/18 at 12:30 Albuterol/ Ipratropium (Duoneb) 3 ml Q4H RESP THERAPY PRN HHN SHORTNESS OF BREATH; Start 05/18/18 at 16:30 JOYCE CHOW May 19, 2018 15:28
[2018-05-19 19:56] VITALS: BP 116/68; PULSE 77; RESP 20
[2018-05-19] MEDS: TAMSULOSIN (SR) 0.4 MG CAP PO SCH (21:06)
[2018-05-19] MEDS: ESCITALOPRAM 10 MG TAB PO SCH (21:07)
[2018-05-20] VITALS (16 sets, daily range): BP systolic 106–173; BP diastolic 59–86; PULSE 62–82; RESP 10–20
[2018-05-20] MEDS: PANTOPRAZOLE (EC) 40 MG TAB PO SCH (06:32)
[2018-05-20] MEDS ORDERED: PROPOFOL 20 ML ONE ×2 (08:57→10:45)
[2018-05-20] MEDS ORDERED: FENTAnyl 50 MCG/ML VIAL ONE (08:57)
[2018-05-20] MEDS ORDERED: LIDOCAINE 100 MG SYRINGE ONE (09:11)
[2018-05-20] MEDS ORDERED: MEPERIDINE 25 MG INJ IV PRN (10:00)
[2018-05-20] MEDS ORDERED: FENTAnyl 50 MCG/ML VIAL IV PRN ×3 (10:00)
[2018-05-20] MEDS ORDERED: hydrALAzine 20 MG INJ IV PRN (10:00)
[2018-05-20] MEDS ORDERED: LABETALOL HCL 20MG INJ IV PRN (10:00)
[2018-05-20] MEDS ORDERED: DIPHENHYDRAMINE 50 MG INJ IV PRN (10:00)
[2018-05-20] MEDS ORDERED: EPHEDrine SULFATE 50 MG/5 ML SYG IV PRN (10:00)
[2018-05-20] MEDS ORDERED: ONDANSETRON 4 MG INJ IV PRN (10:00)
--- NOTE | 2018-05-20 11:02 | HPN ---
Date/Time of Note Date/Time of Note DATE: 05/20/18 TIME: 11:02 Interval H&P Admission Note Pt. seen H&P reviewed: No system changes ISSAC PEREZ MD May 20, 2018 11:02
[2018-05-20] MEDS: DUTASTERIDE 0.5 MG CAP PO SCH (11:40)
[2018-05-20] MEDS: DOCUSATE SODIUM 250 MG CAP PO SCH ×2 (11:40→20:15)
[2018-05-20] MEDS: CHOLECALCIFEROL 400 UNITS TAB PO SCH (11:41)
[2018-05-20] MEDS: MEMANTINE 10 MG TAB PO SCH (11:41)
[2018-05-20] MEDS: RISPERIDONE 0.25 MG TAB PO SCH (11:41)
[2018-05-20] MEDS: BENAZEPRIL 40 MG TAB PO SCH (11:41)
[2018-05-20] MEDS: DONEPEZIL 10 MG TAB PO SCH (11:41)
--- NOTE | 2018-05-20 12:11 | CONS ---
[facility] HCIS Consult Follow-up Patient Name: Andrew Cruz Unit Number: [id number] Date of : 1935 Patient Status: Admitted Inpatient Attending Doctor: Ryanne Milton Edit: RAMILA YOUNG M.D. on 05/21/18 @ 14:42 bone marrow bx results reveal absence of iron in the bone marrow. Also there is no obvious evidence of MDS but MDS FISH Panel and cytogenetics are currently pending. Assessment/Plan Assessment/Plan Assessment/Plan (Daily) #leukopenia #thrombocytopenia #Alzheimer dementia -pt did have an abdominal ultrasound done in 08/2017 that demonstrated fatty liver which may be the underlying cause of patient's pancytopenia -although given how persistent this pancytopenia has been we need to rule out MDS at this time -05/20/18- Patient is SP bone marrow biopsy- doing well. -no obvious evidence of vitamin b12 or folate deficiency -SPEP ordered- PENDING -LDH - 312 ;slightly below normal; Patient seen in collaboration with Dr Young Consultation Date/Type/Reason Admit Date/Time May 15, 2018 at 12:37 Initial Consult Date 05/18/18 Type of Consult HEMATOLOGY Reason for Consultation pancytopenia Requesting Provider: MARTA MCGUIRE MD Date/Time of Note DATE: 05/20/18 TIME: 12:10 24 HR Interval Summary Free Text/Dictation Patient is SP bone marrow biopsy- doing well. No new events reported last night Detailed Summary ENT: no complaints Respiratory: no complaints Cardiovascular: no complaints Gastrointestinal: no complaints Genitourinary: no complaints Musculoskeletal: no complaints Skin: no complaints Neurologic: no complaints Exam/Review of Systems Exam Vitals Vital Signs Date Temp Pulse Resp B/P (MAP) Pulse Ox O2 O2 Flow FiO2 Time Delivery Rate 05/20/18 67 18 129/73 95 Room Air 12:00 (91) 05/20/18 98.2 11:30 Intake and Output 05/19/18 05/19/18 05/20/18 1515:00 23:00 07:00 IntakeIntake Total 480 ml 480 ml BalanceBalance 480 ml 480 ml Constitutional: alert, well developed Psych: nl mood/affect Eyes: EOMI, nl lids, nl sclera ENMT: nl external ears & nose Neck: non-tender Respiratory: clear to auscultation Cardiovascular: nl pulses, other (s1s2) Gastrointestinal: soft, non-tender Musculoskeletal: nl extremities to inspection Extremities: normal pulses Neurological: nl speech, other (alert, responsvive) Skin: nl turgor Lymph: nontender Results Result Diagram: 05/20/18 0758 05/20/18 0758 Results 24hrs Laboratory Tests Test 05/19/18 15:26 05/20/18 07:58 Total Protein (PEP) 6.9 Albumin (PEP) Pending [id number] Pending [id number] Pending Beta Globulins Pending Gamma Globulins Pending Protein Electrophoresis Interpret Pending White Blood Count 2.9 L Red Blood Count 4.88 Hemoglobin 12.8 L Hematocrit 40.0 L Mean Corpuscular Volume 82.0 Mean Corpuscular Hemoglobin 26.2 L Mean Corpuscular Hemoglobin Concent 32.0 Red Cell Distribution Width 15.4 H Platelet Count 104 L Mean Platelet Volume 10.8 H Immature Granulocytes % 0.300 Neutrophils % 34.0 L Lymphocytes % 47.0 Monocytes % 18.1 H Eosinophils % 0.3 Basophils % 0.3 Nucleated Red Blood Cells % 0.0 Immature Granulocytes # 0.010 Neutrophils # 1.0 L Lymphocytes # 1.4 Monocytes # 0.5 Eosinophils # 0.0 Basophils # 0.0 Nucleated Red Blood Cells # 0.0 Sodium Level 141 Potassium Level 4.0 Chloride Level 104 Carbon Dioxide Level 29 Anion Gap 8 Blood Urea Nitrogen 16 Creatinine 0.84 Est Glomerular Filtrat Rate mL/min Glucose Level 102 Calcium Level 9.8 Medications Medication Current Medications IV Flush (NS 3 ml) 3 ml PER PROTOCOL IV ; Start 05/13/18 at 21:00 Ondansetron HCl (Zofran Inj) 4 mg Q6H PRN IV NAUSEA/VOMITING; Start 05/13/18 at 21:00 Acetaminophen (Tylenol Tab) 650 mg Q6H PRN PO .PAIN 1-3 OR TEMP Last adminis tered on 05/14/18 14:05; Admin Dose 650 MG; Start 05/13/18 at 21:00 Acetaminophen (Tylenol Tab) 650 mg Q6H PRN PO PAIN LEVEL 1-10/10; Start 05/14/18 at 19:00 Benazepril HCl (Lotensin) 40 mg DAILY PO Last administered on 05/20/18 11:41; Admin Dose 40 MG; Start 05/15/18 at 09:00 Carvedilol (Coreg) 6.25 mg BID PO Last administered on 05/20/18 11:41; Admin Dose 6.25 MG; Start 05/14/18 at 21:00 Cholecalciferol (Vitamin D) 400 units DAILY PO Last administered on 05/20/18 11:41; Admin Dose 400 UNITS; Start 05/15/18 at 09:00 Docusate Sodium (Colace) 250 mg BID PO Last administered on 05/20/18 11:40; Admin Dose 250 MG; Start 05/14/18 at 21:00 Donepezil HCl (Aricept) 10 mg DAILY PO Last administered on 05/20/18 11:41; Admin Dose 10 MG; Start 05/15/18 at 09:00 Dutasteride (Avodart) 0.5 mg DAILY PO Last administered on 05/20/18 11:40; Admin Dose 0.5 MG; Start 05/15/18 at 09:00 Memantine (Namenda) 10 mg DAILY PO Last administered on 05/20/18 11:41; Admin Dose 10 MG; Start 05/15/18 at 09:00 Risperidone (Risperdal) 0.5 mg DAILY PO Last administered on 05/20/18 11:41; Admin Dose 0.5 MG; Start 05/15/18 at 09:00 Tamsulosin HCl (Flomax) 0.4 mg HS PO Last administered on 05/19/18 21:06; Admin Dose 0.4 MG; Start 05/14/18 at 21:00 Escitalopram Oxalate (Lexapro) 5 mg QHS PO Last administered on 05/19/18 21:07; Admin Dose 5 MG; Start 05/15/18 at 21:00 Pantoprazole (Protonix Tab) 40 mg DAILY@06 PO Last administered on 05/20/18at 06:32; Admin Dose 40 MG; Start 05/15/18 at 06:00 Aspirin (Halfprin) 81 mg DAILY PO Last administered on 05/18/18at 08:23; Admin Dose 81 MG; Start 05/17/18 at 12:30 Albuterol/ Ipratropium (Duoneb) 3 ml Q4H RESP THERAPY PRN HHN SHORTNESS OF BREATH; Start 05/18/18 at 16:30 Morphine Sulfate (morphine) 6 mg Q4H PRN PO SEVERE PAIN LEVEL 7-10; Start 05/19/18 at 16:00 Fentanyl (Sublimaze) 25 mcg PACU ORDER PRN IV MILD PAIN 1-3; Start 05/20/18 at 10:00 Fentanyl (Sublimaze) 50 mcg PACU ORDER PRN IV MOD PAIN 4-6; Start 05/20/18 at 10:00 Fentanyl (Sublimaze) 75 mcg PACU ORDER PRN IV SEVERE PAIN 7-10; Start 05/20/18 at 10:00 Ondansetron HCl (Zofran Inj) 4 mg PACU ORDER PRN IV NAUSEA/VOMITING; Start 05/20/18 at 10:00; Stop 05/20/18 at 17:00 Labetalol HCl (Labetalol) 5 mg PACU ORDER PRN IV HIGH BLOOD PRESSURE; Start 05/20/18 at 10:00 Hydralazine HCl (Apresoline) 5 mg PACU ORDER PRN IV HIGH BLOOD PRESSURE; Start 05/20/18 at 10:00 Ephedrine Sulfate 5 mg PACU ORDER PRN IV BLOOD PRESSURE SUPPORT; Start 05/20/18 at 10:00 Meperidine HCl (Demerol) 25 mg PACU ORDER PRN IV .RIGORS; Start 05/20/18 at 10:00 Diphenhydramine HCl (Benadryl) 25 mg PACU ORDER PRN IV .PRURITUS; Start 05/20/18 at 10:00; Stop 05/20/18 at 17:00 FROYLAN ALVAREZ May 20, 2018 12:11
--- NOTE | 2018-05-20 19:20 | PN ---
Date/Time of Note Date/Time of Note DATE: 05/20/18 TIME: 19:18 Assessment/Plan VTE Prophylaxis Risk score (from [facility] [place])>0 risk: 7 SCD applied (from [facility] [place]): Yes Pharmacological prophylaxis: NA/contraindicated Pharm contraindication: thrombocytopenia, surgical contra Lines/Catheters IV Catheter Type (from [facility]): [place] line still needed: Yes Urinary Cath still in place: No Assessment/Plan Hospital Course Patient is status post bone marrow biopsy today, continue to monitor, patient is awake alert and oriented x2, otherwise pleasantly confused, cooperative with treatment. Assessment/Plan -Pancytopenia. Dr. Carrera is following in hematology consultation. S/p bone marrow biopsy. -Hypertension, continue Coreg and lisinopril. -Preserved ejection fraction per 2D echo -Depression, continue Lexapro -Dementia, continue Aricept and Namenda -Atelectasis versus minimal infiltrate in the bilateral lower lobes. No fever. Encourage incentive spirometer use. -BPH, continue tamsulosin and finasteride. Further recommendations based on clinical course. Plan of care discussed with Dr. Becker. Result Diagram: 05/20/18 0758 05/20/18 0758 Results 24hrs Laboratory Tests Test 05/20/18 07:58 White Blood Count 2.9 L Red Blood Count 4.88 Hemoglobin 12.8 L Hematocrit 40.0 L Mean Corpuscular Volume 82.0 Mean Corpuscular Hemoglobin 26.2 L Mean Corpuscular Hemoglobin Concent 32.0 Red Cell Distribution Width 15.4 H Platelet Count 104 L Mean Platelet Volume 10.8 H Immature Granulocytes % 0.300 Neutrophils % 34.0 L Lymphocytes % 47.0 Monocytes % 18.1 H Eosinophils % 0.3 Basophils % 0.3 Nucleated Red Blood Cells % 0.0 Immature Granulocytes # 0.010 Neutrophils # 1.0 L Lymphocytes # 1.4 Monocytes # 0.5 Eosinophils # 0.0 Basophils # 0.0 Nucleated Red Blood Cells # 0.0 Sodium Level 141 Potassium Level 4.0 Chloride Level 104 Carbon Dioxide Level 29 Anion Gap 8 Blood Urea Nitrogen 16 Creatinine 0.84 Est Glomerular Filtrat Rate mL/min Glucose Level 102 Calcium Level 9.8 Exam/Review of Systems Exam Vitals Vital Signs Date Temp Pulse Resp B/P (MAP) Pulse Ox O2 O2 Flow FiO2 Time Delivery Rate 05/20/18 97.9 69 18 106/59 94 Room Air 14:00 (75) Intake and Output 05/19/18 05/19/18 05/20/18 1515:00 23:00 07:00 IntakeIntake Total 480 ml 480 ml BalanceBalance 480 ml 480 ml Exam Constitutional: alert, oriented Respiratory: diminished breath sounds Cardiovascular: nl pulses Gastrointestinal: soft, non-tender Musculoskeletal: nl extremities to inspection Extremities: normal pulses Results Results 24hrs Laboratory Tests Test 05/20/18 07:58 White Blood Count 2.9 L Red Blood Count 4.88 Hemoglobin 12.8 L Hematocrit 40.0 L Mean Corpuscular Volume 82.0 Mean Corpuscular Hemoglobin 26.2 L Mean Corpuscular Hemoglobin Concent 32.0 Red Cell Distribution Width 15.4 H Platelet Count 104 L Mean Platelet Volume 10.8 H Immature Granulocytes % 0.300 Neutrophils % 34.0 L Lymphocytes % 47.0 Monocytes % 18.1 H Eosinophils % 0.3 Basophils % 0.3 Nucleated Red Blood Cells % 0.0 Immature Granulocytes # 0.010 Neutrophils # 1.0 L Lymphocytes # 1.4 Monocytes # 0.5 Eosinophils # 0.0 Basophils # 0.0 Nucleated Red Blood Cells # 0.0 Sodium Level 141 Potassium Level 4.0 Chloride Level 104 Carbon Dioxide Level 29 Anion Gap 8 Blood Urea Nitrogen 16 Creatinine 0.84 Est Glomerular Filtrat Rate mL/min Glucose Level 102 Calcium Level 9.8 Medications Medication Current Medications IV Flush (NS 3 ml) 3 ml PER PROTOCOL IV ; Start 05/13/18 at 21:00 Ondansetron HCl (Zofran Inj) 4 mg Q6H PRN IV NAUSEA/VOMITING; Start 05/13/18 at 21:00 Acetaminophen (Tylenol Tab) 650 mg Q6H PRN PO .PAIN 1-3 OR TEMP Last administered on 05/14/18at 14:05; Admin Dose 650 MG; Start 05/13/18 at 21:00 Acetaminophen (Tylenol Tab) 650 mg Q6H PRN PO PAIN LEVEL 1-10/10; Start 05/14/18 at 19:00 Benazepril HCl (Lotensin) 40 mg DAILY PO Last administered on 05/20/18at 11:41; Admin Dose 40 MG; Start 05/15/18 at 09:00 Carvedilol (Coreg) 6.25 mg BID PO Last administered on 05/20/18 11:41; Admin Dose 6.25 MG; Start 05/14/18 at 21:00 Cholecalciferol (Vitamin D) 400 units DAILY PO Last administered on 05/20/18 11:41; Admin Dose 400 UNITS; Start 05/15/18 at 09:00 Docusate Sodium (Colace) 250 mg BID PO Last administered on 05/20/18 11:40; Admin Dose 250 MG; Start 05/14/18 at 21:00 Donepezil HCl (Aricept) 10 mg DAILY PO Last administered on 05/20/18 11:41; Admin Dose 10 MG; Start 05/15/18 at 09:00 Dutasteride (Avodart) 0.5 mg DAILY PO Last administered on 05/20/18 11:40; Admin Dose 0.5 MG; Start 05/15/18 at 09:00 Memantine (Namenda) 10 mg DAILY PO Last administered on 05/20/18 11:41; Admin Dose 10 MG; Start 05/15/18 at 09:00 Risperidone (Risperdal) 0.5 mg DAILY PO Last administered on 05/20/18 11:41; Admin Dose 0.5 MG; Start 05/15/18 at 09:00 Tamsulosin HCl (Flomax) 0.4 mg HS PO Last administered on 05/19/18 21:06; Admin Dose 0.4 MG; Start 05/14/18 at 21:00 Escitalopram Oxalate (Lexapro) 5 mg QHS PO Last administered on 05/19/18 21:07; Admin Dose 5 MG; Start 05/15/18 at 21:00 Pantoprazole (Protonix Tab) 40 mg DAILY@06 PO Last administered on 05/20/18 06:32; Admin Dose 40 MG; Start 05/15/18 at 06:00 Aspirin (Halfprin) 81 mg DAILY PO Last administered on 05/18/18 08:23; Admin Dose 81 MG; Start 05/17/18 at 12:30 Albuterol/ Ipratropium (Duoneb) 3 ml Q4H RESP THERAPY PRN HHN SHORTNESS OF BREATH; Start 05/18/18 at 16:30 Morphine Sulfate (morphine) 6 mg Q4H PRN PO SEVERE PAIN LEVEL 7-10; Start 05/19/18 at 16:00 Fentanyl (Sublimaze) 25 mcg PACU ORDER PRN IV MILD PAIN 1-3; Start 05/20/18 at 10:00 Fentanyl (Sublimaze) 50 mcg PACU ORDER PRN IV MOD PAIN 4-6; Start 05/20/18 at 10:00 Fentanyl (Sublimaze) 75 mcg PACU ORDER PRN IV SEVERE PAIN 7-10; Start 05/20/18 at 10:00 Labetalol HCl (Labetalol) 5 mg PACU ORDER PRN IV HIGH BLOOD PRESSURE; Start 05/20/18 at 10:00 Hydralazine HCl (Apresoline) 5 mg PACU ORDER PRN IV HIGH BLOOD PRESSURE; Start 05/20/18 at 10:00 Ephedrine Sulfate 5 mg PACU ORDER PRN IV BLOOD PRESSURE SUPPORT; Start 05/20/18 at 10:00 Meperidine HCl (Demerol) 25 mg PACU ORDER PRN IV .RIGORS; Start 05/20/18 at 10:00 JOYCE CHOW May 20, 2018 19:20
[2018-05-20] MEDS: ESCITALOPRAM 10 MG TAB PO SCH (20:15)
[2018-05-20] MEDS: TAMSULOSIN (SR) 0.4 MG CAP PO SCH (20:16)
[2018-05-21 02:00] VITALS: BP 138/71; PULSE 73; RESP 18
[2018-05-21] MEDS: PANTOPRAZOLE (EC) 40 MG TAB PO SCH (05:35)
[2018-05-21 07:36] VITALS: BP 110/71; PULSE 74; RESP 16
[2018-05-21] MEDS: RISPERIDONE 0.25 MG TAB PO SCH (08:11)
[2018-05-21] MEDS: CHOLECALCIFEROL 400 UNITS TAB PO SCH (08:11)
[2018-05-21] MEDS: MEMANTINE 10 MG TAB PO SCH (08:11)
[2018-05-21] MEDS: BENAZEPRIL 40 MG TAB PO SCH (08:11)
[2018-05-21] MEDS: DUTASTERIDE 0.5 MG CAP PO SCH (08:11)
[2018-05-21] MEDS: DONEPEZIL 10 MG TAB PO SCH (08:12)
[2018-05-21] MEDS: ASPIRIN (EC) 81 MG TAB PO SCH (08:12)
[2018-05-21] MEDS: DOCUSATE SODIUM 250 MG CAP PO SCH ×2 (08:12→21:09)
[2018-05-21 14:00] VITALS: BP 107/64; PULSE 74; RESP 18
--- NOTE | 2018-05-21 18:14 | PN ---
Date/Time of Note Date/Time of Note DATE: 05/21/18 TIME: 18:09 Assessment/Plan VTE Prophylaxis Risk score (from [facility])>0 risk: 4 SCD applied (from [facility] [place]): Yes Pharmacological prophylaxis: NA/contraindicated Pharm contraindication: thrombocytopenia Lines/Catheters IV C[facility]ter Type (from [facility]): Peripheral IV Urinary Cath still in place: No Assessment/Plan Hospital Course Patient remains hemodynamically stable, afebrile. Assessment/Plan -Iron deficiency, patient is started on Ferrlecit -Pancytopenia. Dr. Carrera is following in hematology consultation. S/p bone marrow biopsy. -Hypertension, continue Coreg and lisinopril. -Preserved ejection fraction per 2D echo -Depression, continue Lexapro -Dementia, continue Aricept and Namenda -Atelectasis versus minimal infiltrate in the bilateral lower lobes. No fever. Encourage incentive spirometer use. -BPH, continue tamsulosin and finasteride. Further recommendations based on clinical course. Plan of care discussed with Dr. Becker. Result Diagram: 05/20/18 0758 05/20/18 0758 Exam/Review of Systems Exam Vitals Vital Signs Date Temp Pulse Resp B/P (MAP) Pulse Ox O2 O2 Flow FiO2 Time Delivery Rate 05/21/18 98.1 74 18 107/64 96 Room Air 14:00 (78) Intake and Output 05/20/18 05/20/18 05/21/18 1515:00 23:00 07:00 IntakeIntake Total 380 ml 480 ml 200 ml BalanceBalance 380 ml 480 ml 200 ml Exam Constitutional: alert, oriented Respiratory: diminished breath sounds Cardiovascular: nl pulses Gastrointestinal: soft, non-tender Musculoskeletal: nl extremities to inspection Extremities: normal pulses Medications Medication Current Medications IV Flush (NS 3 ml) 3 ml PER PROTOCOL IV ; Start 05/13/18 at 21:00 Ondansetron HCl (Zofran Inj) 4 mg Q6H PRN IV NAUSEA/VOMITING; Start 05/13/18 at 21:00 Acetaminophen (Tylenol Tab) 650 mg Q6H PRN PO .PAIN 1-3 OR TEMP Last administered on 05/14/18at 14:05; Admin Dose 650 MG; Start 05/13/18 at 21:00 Acetaminophen (Tylenol Tab) 650 mg Q6H PRN PO PAIN LEVEL 1-10/10; Start 05/14/18 at 19:00 Benazepril HCl (Lotensin) 40 mg DAILY PO Last administered on 05/21/18 08:11; Admin Dose 40 MG; Start 05/15/18 at 09:00 Carvedilol (Coreg) 6.25 mg BID PO Last administered on 05/21/18 08:12; Admin Dose 6.25 MG; Start 05/14/18 at 21:00 Cholecalciferol (Vitamin D) 400 units DAILY PO Last administered on 05/21/18 08:11; Admin Dose 400 UNITS; Start 05/15/18 at 09:00 Docusate Sodium (Colace) 250 mg BID PO Last administered on 05/21/18 08:12; Admin Dose 250 MG; Start 05/14/18 at 21:00 Donepezil HCl (Aricept) 10 mg DAILY PO Last administered on 05/21/18 08:12; Admin Dose 10 MG; Start 05/15/18 at 09:00 Dutasteride (Avodart) 0.5 mg DAILY PO Last administered on 05/21/18 08:11; Admin Dose 0.5 MG; Start 05/15/18 at 09:00 Memantine (Namenda) 10 mg DAILY PO Last administered on 05/21/18 08:11; Admin Dose 10 MG; Start 05/15/18 at 09:00 Risperidone (Risperdal) 0.5 mg DAILY PO Last administered on 05/21/18 08:11; Admin Dose 0.5 MG; Start 05/15/18 at 09:00 Tamsulosin HCl (Flomax) 0.4 mg HS PO Last administered on 05/20/18 20:16; Admin Dose 0.4 MG; Start 05/14/18 at 21:00 Escitalopram Oxalate (Lexapro) 5 mg QHS PO Last administered on 05/20/18 20:15; Admin Dose 5 MG; Start 05/15/18 at 21:00 Pantoprazole (Protonix Tab) 40 mg DAILY@06 PO Last administered on 05/21/18 05:35; Admin Dose 40 MG; Start 05/15/18 at 06:00 Aspirin (Halfprin) 81 mg DAILY PO Last administered on 05/21/18 08:12; Admin Dose 81 MG; Start 05/17/18 at 12:30 Albuterol/ Ipratropium (Duoneb) 3 ml Q4H RESP THERAPY PRN HHN SHORTNESS OF BREATH; Start 05/18/18 at 16:30 Morphine Sulfate (morphine) 6 mg Q4H PRN PO SEVERE PAIN LEVEL 7-10; Start 05/19/18 at 16:00 JOYCE CHOW May 21, 2018 18:14
--- NOTE | 2018-05-21 19:32 | CONS ---
Assessment/Plan Assessment/Plan Assessment/Plan (Daily) #leukopenia- wbc 2.9 #thrombocytopenia- 104 #Alzheimer dementia -pt did have an abdominal ultrasound done in 08/2017 that demonstrated fatty liver which may be the underlying cause of patient's pancytopenia -although given how persistent this pancytopenia has been we need to rule out MDS at this time -05/19/18- Patient is SP bone marrow biopsy- doing well. - 05/21/2018- bx results reveal absence of iron in the bone marrow. Also there is no obvious evidence of MDS but MDS FISH Panel and cytogenetics are currently pending. -no obvious evidence of vitamin b12 or folate deficiency -SPEP ordered- PENDING -LDH - 312 ;slightly below normal; Patient seen in collaboration with Dr Carrera Consultation Date/Type/Reason Admit Date/Time May 15, 2018 at 12:37 pm Initial Consult Date 05/18/18 Type of Consult HEMATOLOGY Reason for Consultation Pancytopenia Requesting Provider: MARTA MCGUIRE MD Date/Time of Note DATE: 05/21/18 TIME: 19:29 24 HR Interval Summary Free Text/Dictation - 05/21/2018- bx results reveal absence of iron in the bone marrow. Also there is no obvious evidence of MDS but MDS FISH Panel and cytogenetics are currently pending. - no new events reported last night per staff Detailed Summary Eyes: no complaints ENT: no complaints Respiratory: no complaints Cardiovascular: no complaints Gastrointestinal: no complaints Genitourinary: no complaints Musculoskeletal: no complaints Skin: no complaints Neurologic: no complaints Endocrine: no complaints Exam/Review of Systems Exam Vitals Vital Signs Date Temp Pulse Resp B/P (MAP) Pulse Ox O2 O2 Flow FiO2 Time Delivery Rate 05/21/18 98.1 74 18 107/64 96 Room Air 14:00 (78) Intake and Output 05/20/18 05/20/18 05/21/18 1515:00 23:00 07:00 IntakeIntake Total 380 ml 480 ml 200 ml BalanceBalance 380 ml 480 ml 200 ml Constitutional: alert, well developed Psych: nl mood/affect Head: atraumatic Eyes: EOMI, nl lids ENMT: nl external ears & nose Respiratory: clear to auscultation, other (bilaterally) Cardiovascular: nl pulses, other (s1s2) Musculoskeletal: nl extremities to inspection Extremities: normal pulses Neurological: nl speech, other (confused; alert; reponsive) Skin: nl turgor Lymph: nontender Results Result Diagram: 05/20/18 0758 05/20/18 0758 Medications Medication Current Medications IV Flush (NS 3 ml) 3 ml PER PROTOCOL IV ; Start 05/13/18 at 21:00 Ondansetron HCl (Zofran Inj) 4 mg Q6H PRN IV NAUSEA/VOMITING; Start 05/13/18 at 21:00 Acetaminophen (Tylenol Tab) 650 mg Q6H PRN PO .PAIN 1-3 OR TEMP Last administered on 05/14/18 14:05; Admin Dose 650 MG; Start 05/13/18 at 21:00 Acetaminophen (Tylenol Tab) 650 mg Q6H PRN PO PAIN LEVEL 1-10/10; Start 05/14/18 at 19:00 Benazepril HCl (Lotensin) 40 mg DAILY PO Last administered on 05/21/18 08:11; Admin Dose 40 MG; Start 05/15/18 at 09:00 Carvedilol (Coreg) 6.25 mg BID PO Last administered on 05/21/18 08:12; Admin Dose 6.25 MG; Start 05/14/18 at 21:00 Cholecalciferol (Vitamin D) 400 units DAILY PO Last administered on 05/21/18 08:11; Admin Dose 400 UNITS; Start 05/15/18 at 09:00 Docusate Sodium (Colace) 250 mg BID PO Last administered on 05/21/18 08:12; Admin Dose 250 MG; Start 05/14/18 at 21:00 Donepezil HCl (Aricept) 10 mg DAILY PO Last administered on 05/21/18 08:12; Admin Dose 10 MG; Start 05/15/18 at 09:00 Dutasteride (Avodart) 0.5 mg DAILY PO Last administered on 05/21/18 08:11; Admin Dose 0.5 MG; Start 05/15/18 at 09:00 Memantine (Namenda) 10 mg DAILY PO Last administered on 05/21/18 08:11; Admin Dose 10 MG; Start 05/15/18 at 09:00 Risperidone (Risperdal) 0.5 mg DAILY PO Last administered on 05/21/18 08:11; Admin Dose 0.5 MG; Start 05/15/18 at 09:00 Tamsulosin HCl (Flomax) 0.4 mg HS PO Last administered on 05/20/18at 20:16; Admin Dose 0.4 MG; Start 05/14/18 at 21:00 Escitalopram Oxalate (Lexapro) 5 mg QHS PO Last administered on 05/20/18at 20:15; Admin Dose 5 MG; Start 05/15/18 at 21:00 Pantoprazole (Protonix Tab) 40 mg DAILY@06 PO Last administered on 05/21/18at 05:35; Admin Dose 40 MG; Start 05/15/18 at 06:00 Aspirin (Halfprin) 81 mg DAILY PO Last administered on 05/21/18at 08:12; Admin Dose 81 MG; Start 05/17/18 at 12:30 Albuterol/ Ipratropium (Duoneb) 3 ml Q4H RESP THERAPY PRN HHN SHORTNESS OF BREATH; Start 05/18/18 at 16:30 Morphine Sulfate (morphine) 6 mg Q4H PRN PO SEVERE PAIN LEVEL 7-10; Start 05/19/18 at 16:00 FROYLAN ALVAREZ May 21, 2018 19:32
[2018-05-21 20:00] VITALS: BP 118/66; PULSE 62; RESP 18
[2018-05-21] MEDS: TAMSULOSIN (SR) 0.4 MG CAP PO SCH (21:09)
[2018-05-21] MEDS: ESCITALOPRAM 10 MG TAB PO SCH (21:10)
[2018-05-22 02:21] VITALS: BP 124/67; PULSE 72; RESP 18
[2018-05-22] MEDS: PANTOPRAZOLE (EC) 40 MG TAB PO SCH (06:03)
[2018-05-22 07:51] VITALS: BP 116/67; PULSE 77; RESP 18
[2018-05-22] MEDS: DUTASTERIDE 0.5 MG CAP PO SCH (08:40)
[2018-05-22] MEDS: DOCUSATE SODIUM 250 MG CAP PO SCH ×2 (08:40→20:44)
[2018-05-22] MEDS: ASPIRIN (EC) 81 MG TAB PO SCH (08:40)
[2018-05-22] MEDS: DONEPEZIL 10 MG TAB PO SCH (08:40)
[2018-05-22] MEDS: RISPERIDONE 0.25 MG TAB PO SCH (08:40)
[2018-05-22] MEDS: MEMANTINE 10 MG TAB PO SCH (08:40)
[2018-05-22] MEDS: CHOLECALCIFEROL 400 UNITS TAB PO SCH (08:44)
[2018-05-22] MEDS: BENAZEPRIL 40 MG TAB PO SCH (08:44)
--- NOTE | 2018-05-22 11:42 | PN ---
Date/Time of Note Date/Time of Note DATE: 05/22/18 TIME: 11:41 Assessment/Plan VTE Prophylaxis Risk score (from [facility] [place]0 risk: 4 SCD applied (from [facility] [place]): Yes Pharmacological prophylaxis: LMWH Lines/Catheters [facility] (from [facility] Saline Lock Urinary Cath still in place: No Assessment/Plan Hospital Course -Iron deficiency, patient is started on Ferrlecit -Pancytopenia. Dr. Carrera is following in hematology consultation. S/p bone marrow biopsy. -Hypertension, continue Coreg and lisinopril. -Preserved ejection fraction per 2D echo -Depression, continue Lexapro -Dementia, continue Aricept and Namenda -Atelectasis versus minimal infiltrate in the bilateral lower lobes. No fever. Encourage incentive spirometer use. -BPH, continue tamsulosin and finasteride. Result Diagram: 05/22/1872205/22/1823 Results 24hrs Laboratory Tests Test 05/22/18 07:23 White Blood Count 2.5 L Red Blood Count 4.74 Hemoglobin 12.4 L Hematocrit 39.5 L Mean Corpuscular Volume 83.3 Mean Corpuscular Hemoglobin 26.2 L Mean Corpuscular Hemoglobin Concent 31.4 L Red Cell Distribution Width 15.7 H Platelet Count 93 L Mean Platelet Volume 10.7 H Immature Granulocytes % 0.400 Neutrophils % Segmented Neutrophils % (Manual) 32 L Lymphocytes % Lymphocytes % (Manual) 47 Monocytes % Monocytes % (Manual) 19 H Eosinophils % Basophils % Basophils % (Manual) 1 Myelocytes % (Manual) 1 H Nucleated Red Blood Cells % 0.0 Immature Granulocytes # 0.010 Neutrophils # Lymphocytes (Manual) 1.1 Lymphocytes # Monocytes # Monocytes # (Manual) 0.4 Eosinophils # Basophils # Basophils # (Manual) 0.0 Myelocytes # 0.0 Nucleated Red Blood Cells # Platelet Estimate DECREASED Poikilocytosis 1+ Ovalocytes 1+ Sodium Level 142 Potassium Level 3.9 Chloride Level 106 Carbon Dioxide Level 29 Anion Gap 7 Blood Urea Nitrogen 13 Creatinine 0.86 Est Glomerular Filtrat Rate mL/min Glucose Level 95 Calcium Level 9.3 Subjective 24 Hr Interval Summary Free Text/Dictation Patient has no complaints Exam/Review of Systems Exam Vitals Vital Signs Date Temp Pulse Resp B/P (MAP) Pulse Ox O2 O2 Flow FiO2 Time Delivery Rate 05/22/18 97.8 77 18 116/67 95 Room Air 07:51 (83) Intake and Output 05/21/18 05/21/18 05/22/18 1515:00 23:00 07:00 IntakeIntake Total 500 ml 600 ml BalanceBalance 500 ml 600 ml Constitutional: well developed Head: normocephalic, atraumatic Neck: supple Respiratory: diminished breath sounds Cardiovascular: regular rate and rhythm Gastrointestinal: soft, non-tender Extremities: normal pulses Results Results 24hrs Laboratory Tests Test 05/22/18 07:23 White Blood Count 2.5 L Red Blood Count 4.74 Hemoglobin 12.4 L Hematocrit 39.5 L Mean Corpuscular Volume 83.3 Mean Corpuscular Hemoglobin 26.2 L Mean Corpuscular Hemoglobin Concent 31.4 L Red Cell Distribution Width 15.7 H Platelet Count 93 L Mean Platelet Volume 10.7 H Immature Granulocytes % 0.400 Neutrophils % Segmented Neutrophils % (Manual) 32 L Lymphocytes % Lymphocytes % (Manual) 47 Monocytes % Monocytes % (Manual) 19 H Eosinophils % Basophils % Basophils % (Manual) 1 Myelocytes % (Manual) 1 H Nucleated Red Blood Cells % 0.0 Immature Granulocytes # 0.010 Neutrophils # Lymphocytes (Manual) 1.1 Lymphocytes # Monocytes # Monocytes # (Manual) 0.4 Eosinophils # Basophils # Basophils # (Manual) 0.0 Myelocytes # 0.0 Nucleated Red Blood Cells # Platelet Estimate DECREASED Poikilocytosis 1+ Ovalocytes 1+ Sodium Level 142 Potassium Level 3.9 Chloride Level 106 Carbon Dioxide Level 29 Anion Gap 7 Blood Urea Nitrogen 13 Creatinine 0.86 Est Glomerular Filtrat Rate mL/min Glucose Level 95 Calcium Level 9.3 Medications Medication Current Medications IV Flush (NS 3 ml) 3 ml PER PROTOCOL IV ; Start 05/13/18 at 21:00 Ondansetron HCl (Zofran Inj) 4 mg Q6H PRN IV NAUSEA/VOMITING; Start 05/13/18 at 21:00 Acetaminophen (Tylenol Tab) 650 mg Q6H PRN PO .PAIN 1-3 OR TEMP Last administered on 05/14/18at 14:05; Admin Dose 650 MG; Start 05/13/18 at 21:00 Acetaminophen (Tylenol Tab) 650 mg Q6H PRN PO PAIN LEVEL 1-10/10; Start 05/14/18 at 19:00 Benazepril HCl (Lotensin) 40 mg DAILY PO Last administered on 05/22/18 08:44; Admin Dose 40 MG; Start 05/15/18 at 09:00 Carvedilol (Coreg) 6.25 mg BID PO Last administered on 05/22/18 08:40; Admin Dose 6.25 MG; Start 05/14/18 at 21:00 Cholecalciferol (Vitamin D) 400 units DAILY PO Last administered on 05/22/18 08:44; Admin Dose 400 UNITS; Start 05/15/18 at 09:00 Docusate Sodium (Colace) 250 mg BID PO Last administered on 05/22/18 08:40; Admin Dose 250 MG; Start 05/14/18 at 21:00 Donepezil HCl (Aricept) 10 mg DAILY PO Last administered on 05/22/18 08:40; Admin Dose 10 MG; Start 05/15/18 at 09:00 Dutasteride (Avodart) 0.5 mg DAILY PO Last administered on 05/22/18 08:40; Admin Dose 0.5 MG; Start 05/15/18 at 09:00 Memantine (Namenda) 10 mg DAILY PO Last administered on 05/22/18 08:40; Admin Dose 10 MG; Start 05/15/18 at 09:00 Risperidone (Risperdal) 0.5 mg DAILY PO Last administered on 05/22/18 08:40; Admin Dose 0.5 MG; Start 05/15/18 at 09:00 Tamsulosin HCl (Flomax) 0.4 mg HS PO Last administered on 05/21/18 21:09; Admin Dose 0.4 MG; Start 05/14/18 at 21:00 Escitalopram Oxalate (Lexapro) 5 mg QHS PO Last administered on 05/21/18 21:10; Admin Dose 5 MG; Start 05/15/18 at 21:00 Pantoprazole (Protonix Tab) 40 mg DAILY@06 PO Last administered on 05/22/18 0 6:03; Admin Dose 40 MG; Start 05/15/18 at 06:00 Aspirin (Halfprin) 81 mg DAILY PO Last administered on 05/22/18 08:40; Admin Dose 81 MG; Start 05/17/18 at 12:30 Albuterol/ Ipratropium (Duoneb) 3 ml Q4H RESP THERAPY PRN HHN SHORTNESS OF BREATH; Start 05/18/18 at 16:30 Morphine Sulfate (morphine) 6 mg Q4H PRN PO SEVERE PAIN LEVEL 7-10; Start 05/19/18 at 16:00 GURJIT ANTUNEZ May 22, 2018 11:42
--- NOTE | 2018-05-22 11:48 | CONS ---
Assessment/Plan Assessment/Plan Assessment/Plan (Daily) #leukopenia #thrombocytopenia #Alzheimer dementia -pt did have an abdominal ultrasound done in 08/2017 that demonstrated fatty liver which may be the underlying cause of patient's pancytopenia -although given how persistent this pancytopenia has been we need to rule out MDS at this time -05/19/18- Patient is SP bone marrow biopsy- doing well. - 05/21/2018- bx results reveal absence of iron in the bone marrow. Also there is no obvious evidence of MDS but MDS FISH Panel and cytogenetics are currently pending. -no obvious evidence of vitamin b12 or folate deficiency -SPEP ordered- PENDING -LDH - 312 ;slightly below normal; Patient seen in collaboration with Dr Carrera Consultation Date/Type/Reason Admit Date/Time May 15, 2018 at 12:37 pm Initial Consult Date 05/18/18 Type of Consult HEMATOLOGY Reason for Consultation Pancytopenia Requesting Provider: MARTA MCGUIRE MD Date/Time of Note DATE: 05/22/18 TIME: 11:47 24 HR Interval Summary Free Text/Dictation resting in chair feels better no new events reported last night Detailed Summary Eyes: no complaints ENT: no complaints Respiratory: no complaints Cardiovascular: no complaints Gastrointestinal: no complaints Genitourinary: no complaints Musculoskeletal: no complaints Skin: no complaints Neurologic: no complaints Exam/Review of Systems Exam Vitals Vital Signs Date Temp Pulse Resp B/P (MAP) Pulse Ox O2 O2 Flow FiO2 Time Delivery Rate 05/22/18 97.8 77 18 116/67 95 Room Air 07:51 (83) Intake and Output 05/21/18 05/21/18 05/22/18 1414:59 22:59 06:59 IntakeIntake Total 500 ml 600 ml BalanceBalance 500 ml 600 ml Constitutional: alert, oriented (x1 to name only), well developed Psych: nl mood/affect Eyes: EOMI, nl lids, nl sclera ENMT: nl external ears & nose Neck: non-tender Respiratory: clear to auscultation, other (bilaterally) Cardiovascular: nl pulses, other (s1s2) Gastrointestinal: soft, non-tender Musculoskeletal: nl extremities to inspection Neurological: confused Skin: nl turgor Lymph: nontender Results Result Diagram: 05/22/18 0723 05/22/18 0723 Results 24hrs Laboratory Tests Test 05/22/18 07:23 White Blood Count 2.5 L Red Blood Count 4.74 Hemoglobin 12.4 L Hematocrit 39.5 L Mean Corpuscular Volume 83.3 Mean Corpuscular Hemoglobin 26.2 L Mean Corpuscular Hemoglobin Concent 31.4 L Red Cell Distribution Width 15.7 H Platelet Count 93 L Mean Platelet Volume 10.7 H Immature Granulocytes % 0.400 Neutrophils % Segmented Neutrophils % (Manual) 32 L Lymphocytes % Lymphocytes % (Manual) 47 Monocytes % Monocytes % (Manual) 19 H Eosinophils % Basophils % Basophils % (Manual) 1 Myelocytes % (Manual) 1 H Nucleated Red Blood Cells % 0.0 Immature Granulocytes # 0.010 Neutrophils # Lymphocytes (Manual) 1.1 Lymphocytes # Monocytes # Monocytes # (Manual) 0.4 Eosinophils # Basophils # Basophils # (Manual) 0.0 Myelocytes # 0.0 Nucleated Red Blood Cells # Platelet Estimate DECREASED Poikilocytosis 1+ Ovalocytes 1+ Sodium Level 142 Potassium Level 3.9 Chloride Level 106 Carbon Dioxide Level 29 Anion Gap 7 Blood Urea Nitrogen 13 Creatinine 0.86 Est Glomerular Filtrat Rate mL/min Glucose Level 95 Calcium Level 9.3 Medications Medication Current Medications IV Flush (NS 3 ml) 3 ml PER PROTOCOL IV ; Start 05/13/18 at 21:00 Ondansetron HCl (Zofran Inj) 4 mg Q6H PRN IV NAUSEA/VOMITING; Start 05/13/18 at 21:00 Acetaminophen (Tylenol Tab) 650 mg Q6H PRN PO .PAIN 1-3 OR TEMP Last administered on 05/14/18at 14:05; Admin Dose 650 MG; Start 05/13/18 at 21:00 Acetaminophen (Tylenol Tab) 650 mg Q6H PRN PO PAIN LEVEL 1-10/10; Start 05/14/18 at 19:00 Benazepril HCl (Lotensin) 40 mg DAILY PO Last administered on 05/22/18at 08:44; A dmin Dose 40 MG; Start 05/15/18 at 09:00 Carvedilol (Coreg) 6.25 mg BID PO Last administered on 05/22/18at 08:40; Admin Dose 6.25 MG; Start 05/14/18 at 21:00 Cholecalciferol (Vitamin D) 400 units DAILY PO Last administered on 05/22/18at 08:44; Admin Dose 400 UNITS; Start 05/15/18 at 09:00 Docusate Sodium (Colace) 250 mg BID PO Last administered on 05/22/18 08:40; Admin Dose 250 MG; Start 05/14/18 at 21:00 Donepezil HCl (Aricept) 10 mg DAILY PO Last administered on 05/22/18 08:40; Admin Dose 10 MG; Start 05/15/18 at 09:00 Dutasteride (Avodart) 0.5 mg DAILY PO Last administered on 05/22/18 08:40; Ad min Dose 0.5 MG; Start 05/15/18 at 09:00 Memantine (Namenda) 10 mg DAILY PO Last administered on 05/22/18 08:40; Admin Dose 10 MG; Start 05/15/18 at 09:00 Risperidone (Risperdal) 0.5 mg DAILY PO Last administered on 05/22/18 08:40; Admin Dose 0.5 MG; Start 05/15/18 at 09:00 Tamsulosin HCl (Flomax) 0.4 mg HS PO Last administered on 05/21/18 21:09; Admin Dose 0.4 MG; Start 05/14/18 at 21:00 Escitalopram Oxalate (Lexapro) 5 mg QHS PO Last administered on 05/21/18 21:10; Admin Dose 5 MG; Start 05/15/18 at 21:00 Pantoprazole (Protonix Tab) 40 mg DAILY@06 PO Last administered on 05/22/18 06:03; Admin Dose 40 MG; Start 05/15/18 at 06:00 Aspirin (Halfprin) 81 mg DAILY PO Last administered on 05/22/18 08:40; Admin Dose 81 MG; Start 05/17/18 at 12:30 Albuterol/ Ipratropium (Duoneb) 3 ml Q4H RESP THERAPY PRN HHN SHORTNESS OF BREATH; Start 05/18/18 at 16:30 Morphine Sulfate (morphine) 6 mg Q4H PRN PO SEVERE PAIN LEVEL 7-10; Start 05/19/18 at 16:00 FROYLAN ALVAREZ May 22, 2018 11:48
[2018-05-22 14:00] VITALS: BP 122/59; PULSE 75; RESP 18
[2018-05-22 20:16] VITALS: BP 104/58; PULSE 67; RESP 20
[2018-05-22] MEDS: TAMSULOSIN (SR) 0.4 MG CAP PO SCH (20:44)
[2018-05-22] MEDS: ESCITALOPRAM 10 MG TAB PO SCH (20:45)
[2018-05-23 01:54] VITALS: BP 110/62; PULSE 74; RESP 20
[2018-05-23] MEDS: PANTOPRAZOLE (EC) 40 MG TAB PO SCH (05:59)
[2018-05-23 07:51] VITALS: BP 122/75; PULSE 72; RESP 18
[2018-05-23] MEDS: DOCUSATE SODIUM 250 MG CAP PO SCH ×2 (08:11→20:15)
[2018-05-23] MEDS: CHOLECALCIFEROL 400 UNITS TAB PO SCH (08:11)
[2018-05-23] MEDS: MEMANTINE 10 MG TAB PO SCH (08:11)
[2018-05-23] MEDS: ASPIRIN (EC) 81 MG TAB PO SCH (08:11)
[2018-05-23] MEDS: RISPERIDONE 0.25 MG TAB PO SCH (08:11)
[2018-05-23] MEDS: BENAZEPRIL 40 MG TAB PO SCH (08:13)
[2018-05-23] MEDS: DONEPEZIL 10 MG TAB PO SCH (08:13)
[2018-05-23] MEDS: DUTASTERIDE 0.5 MG CAP PO SCH (08:13)
--- NOTE | 2018-05-23 12:42 | PN ---
Date/Time of Note Date/Time of Note DATE: 05/23/18 TIME: 12:41 Assessment/Plan VTE Prophylaxis Risk score (from [facility] [place]0 risk: 4 SCD applied (from [facility] [place]): No SCD contraindicated: other Pharmacological prophylaxis: LMWH Lines/Catheters IV Catheter Type (from [facility] Saline Lock Urinary Cath still in place: No Assessment/Plan Hospital Course -Iron deficiency, patient is started on Ferrlecit -Pancytopenia. Dr. Carrera is following in hematology consultation. S/p bone marrow biopsy. -Hypertension, continue Coreg and lisinopril. -Preserved ejection fraction per 2D echo -Depression, continue Lexapro -Dementia, continue Aricept and Namenda -Atelectasis versus minimal infiltrate in the bilateral lower lobes. No fever. Encourage incentive spirometer use. -BPH, continue tamsulosin and finasteride. Result Diagram: 05/23/18 1036 05/23/18 1036 Results 24hrs Laboratory Tests Test 05/23/18 10:36 White Blood Count 2.5 L Red Blood Count 4.94 Hemoglobin 13.0 L Hematocrit 40.9 L Mean Corpuscular Volume 82.8 Mean Corpuscular Hemoglobin 26.3 L Mean Corpuscular Hemoglobin Concent 31.8 L Red Cell Distribution Width 15.7 H Platelet Count 107 L Mean Platelet Volume 12.3 H Immature Granulocytes % 0.400 Neutrophils % 40.9 Lymphocytes % 40.2 Monocytes % 18.5 H Eosinophils % 0.0 Basophils % 0.0 Nucleated Red Blood Cells % 0.0 Immature Granulocytes # 0.010 Neutrophils # 1.0 L Lymphocytes # 1.0 Monocytes # 0.5 Eosinophils # 0.0 Basophils # 0.0 Nucleated Red Blood Cells # 0.0 Sodium Level 141 Potassium Level 4.4 Chloride Level 106 Carbon Dioxide Level 25 Anion Gap 10 Blood Urea Nitrogen 13 Creatinine 0.80 Est Glomerular Filtrat Rate mL/min Glucose Level 119 Calcium Level 9.6 Subjective 24 Hr Interval Summary Free Text/Dictation Patient has no complaints Exam/Review of Systems Exam Vitals Vital Signs Date Temp Pulse Resp B/P (MAP) Pulse Ox O2 O2 Flow FiO2 Time Delivery Rate 05/23/18 97.5 72 18 122/75 95 07:51 (91) 05/22/18 Room Air 14:00 Intake and Output 05/22/18 05/22/18 05/23/18 1515:00 23:00 07:00 IntakeIntake Total 500 ml OutputOutput Total 2 ml BalanceBalance 500 ml -2 ml Constitutional: well developed Head: normocephalic, atraumatic Neck: supple Respiratory: clear to auscultation Cardiovascular: regular rate and rhythm Gastrointestinal: soft, non-tender Extremities: normal pulses Results Results 24hrs Laboratory Tests Test 05/23/18 10:36 White Blood Count 2.5 L Red Blood Count 4.94 Hemoglobin 13.0 L Hematocrit 40.9 L Mean Corpuscular Volume 82.8 Mean Corpuscular Hemoglobin 26.3 L Mean Corpuscular Hemoglobin Concent 31.8 L Red Cell Distribution Width 15.7 H Platelet Count 107 L Mean Platelet Volume 12.3 H Immature Granulocytes % 0.400 Neutrophils % 40.9 Lymphocytes % 40.2 Monocytes % 18.5 H Eosinophils % 0.0 Basophils % 0.0 Nucleated Red Blood Cells % 0.0 Immature Granulocytes # 0.010 Neutrophils # 1.0 L Lymphocytes # 1.0 Monocytes # 0.5 Eosinophils # 0.0 Basophils # 0.0 Nucleated Red Blood Cells # 0.0 Sodium Level 141 Potassium Level 4.4 Chloride Level 106 Carbon Dioxide Level 25 Anion Gap 10 Blood Urea Nitrogen 13 Creatinine 0.80 Est Glomerular Filtrat Rate mL/min Glucose Level 119 Calcium Level 9.6 Medications Medication Current Medications IV Flush (NS 3 ml) 3 ml PER PROTOCOL IV ; Start 05/13/18 at 21:00 Ondansetron HCl (Zofran Inj) 4 mg Q6H PRN IV NAUSEA/VOMITING; Start 05/13/18 at 21:00 Acetaminophen (Tylenol Tab) 650 mg Q6H PRN PO .PAIN 1-3 OR TEMP Last administered on 05/14/18at 14:05; Admin Dose 650 MG; Start 05/13/18 at 21:00 Acetaminophen (Tylenol Tab) 650 mg Q6H PRN PO PAIN LEVEL 1-10/10; Start 05/14/18 at 19:00 Benazepril HCl (Lotensin) 40 mg DAILY PO Last administered on 05/23/18at 08:13; Admin Dose 40 MG; Start 05/15/18 at 09:00 Carvedilol (Coreg) 6.25 mg BID PO Last administered on 05/23/18at 08:13; Admin Dose 6.25 MG; Start 05/14/18 at 21:00 Cholecalciferol (Vitamin D) 400 units DAILY PO Last administered on 05/23/18 08:11; Admin Dose 400 UNITS; Start 05/15/18 at 09:00 Docusate Sodium (Colace) 250 mg BID PO Last administered on 05/23/18 08:11; Admin Dose 250 MG; Start 05/14/18 at 21:00 Donepezil HCl (Aricept) 10 mg DAILY PO Last administered on 05/23/18 08:13; Admin Dose 10 MG; Start 05/15/18 at 09:00 Dutasteride (Avodart) 0.5 mg DAILY PO Last administered on 05/23/18 08:13; Admin Dose 0.5 MG; Start 05/15/18 at 09:00 Memantine (Namenda) 10 mg DAILY PO Last administered on 05/23/18 08:11; Admin Dose 10 MG; Start 05/15/18 at 09:00 Risperidone (Risperdal) 0.5 mg DAILY PO Last administered on 05/23/18 08:11; Admin Dose 0.5 MG; Start 05/15/18 at 09:00 Tamsulosin HCl (Flomax) 0.4 mg HS PO Last administered on 05/22/18 20:44; Admin Dose 0.4 MG; Start 05/14/18 at 21:00 Escitalopram Oxalate (Lexapro) 5 mg QHS PO Last administered on 05/22/18 20:45; Admin Dose 5 MG; Start 05/15/18 at 21:00 Pantoprazole (Protonix Tab) 40 mg DAILY@06 PO Last administered on 05/23/18 05:59; Admin Dose 40 MG; Start 05/15/18 at 06:00 Aspirin (Halfprin) 81 mg DAILY PO Last administered on 05/23/18 08:11; Admin Dose 81 MG; Start 05/17/18 at 12:30 Albuterol/ Ipratropium (Duoneb) 3 ml Q4H RESP THERAPY PRN HHN SHORTNESS OF BREATH; Start 05/18/18 at 16:30 Morphine Sulfate (morphine) 6 mg Q4H PRN PO SEVERE PAIN LEVEL 7-10; Start 05/19/18 at 16:00 GURJIT ANTUNEZ May 23, 2018 12:41
--- NOTE | 2018-05-23 13:42 | CONS ---
Assessment/Plan Assessment/Plan Assessment/Plan (Daily) #leukopenia- WBC 2.5 #thrombocytopenia- platelets 110 #Alzheimer dementia -pt did have an abdominal ultrasound done in 08/2017 that demonstrated fatty liver which may be the underlying cause of patient's pancytopenia -although given how persistent this pancytopenia has been we need to rule out MDS at this time -05/19/18- Patient is SP bone marrow biopsy- doing well. - 05/21/2018- bx results reveal absence of iron in the bone marrow. Also there is no obvious evidence of MDS but MDS FISH Panel and cytogenetics are currently pending. -no obvious evidence of vitamin b12 or folate deficiency -SPEP ordered- PENDING -LDH - 312 ;slightly below normal; Patient seen in collaboration with Dr Carrera Consultation Date/Type/Reason Admit Date/Time May 15, 2018 at 12:37 Initial Consult Date 05/18/18 Type of Consult HEMATOLOGY Reason for Consultation Pancytopenia Requesting Provider: MARTA MCGUIRE MD Date/Time of Note DATE: 05/23/18 TIME: 13:41 24 HR Interval Summary Free Text/Dictation resting in bed feels better no new events reported last night Detailed Summary Eyes: no complaints ENT: no complaints Respiratory: no complaints Cardiovascular: no complaints Gastrointestinal: no complaints Genitourinary: no complaints Musculoskeletal: no complaints Skin: no complaints Exam/Review of Systems Exam Vitals Vital Signs Date Temp Pulse Resp B/P (MAP) Pulse Ox O2 O2 Flow FiO2 Time Delivery Rate 05/23/18 97.5 72 18 122/75 95 07:51 (91) 05/22/18 Room Air 14:00 Intake and Output 05/22/18 05/22/18 05/23/18 1515:00 23:00 07:00 IntakeIntake Total 500 ml OutputOutput Total 2 ml BalanceBalance 500 ml -2 ml Constitutional: alert, oriented (x1 to name) Psych: nl mood/affect Eyes: EOMI, nl lids, nl sclera ENMT: nl external ears & nose Neck: non-tender Respiratory: clear to auscultation (bilaterally) Cardiovascular: nl pulses, other (s1s2) Gastrointestinal: soft, non-tender Musculoskeletal: nl extremities to inspection Extremities: normal pulses Neurological: nl speech, confused Skin: nl turgor Lymph: nontender Results Result Diagram: 05/23/18 1036 05/23/18 1036 Results 24hrs Laboratory Tests Test 05/23/18 10:36 White Blood Count 2.5 L Red Blood Count 4.94 Hemoglobin 13.0 L Hematocrit 40.9 L Mean Corpuscular Volume 82.8 Mean Corpuscular Hemoglobin 26.3 L Mean Corpuscular Hemoglobin Concent 31.8 L Red Cell Distribution Width 15.7 H Platelet Count 107 L Mean Platelet Volume 12.3 H Immature Granulocytes % 0.400 Neutrophils % 40.9 Lymphocytes % 40.2 Monocytes % 18.5 H Eosinophils % 0.0 Basophils % 0.0 Nucleated Red Blood Cells % 0.0 Immature Granulocytes # 0.010 Neutrophils # 1.0 L Lymphocytes # 1.0 Monocytes # 0.5 Eosinophils # 0.0 Basophils # 0.0 Nucleated Red Blood Cells # 0.0 Sodium Level 141 Potassium Level 4.4 Chloride Level 106 Carbon Dioxide Level 25 Anion Gap 10 Blood Urea Nitrogen 13 Creatinine 0.80 Est Glomerular Filtrat Rate mL/min Glucose Level 119 Calcium Level 9.6 Medications Medication Current Medications IV Flush (NS 3 ml) 3 ml PER PROTOCOL IV ; Start 05/13/18 at 21:00 Ondansetron HCl (Zofran Inj) 4 mg Q6H PRN IV NAUSEA/VOMITING; Start 05/13/18 at 21:00 Acetaminophen (Tylenol Tab) 650 mg Q6H PRN PO .PAIN 1-3 OR TEMP Last administered on 05/14/18at 14:05; Admin Dose 650 MG; Start 05/13/18 at 21:00 Acetaminophen (Tylenol Tab) 650 mg Q6H PRN PO PAIN LEVEL 1-10/10; Start 05/14/18 at 19:00 Benazepril HCl (Lotensin) 40 mg DAILY PO Last administered on 05/23/18at 08:13; Admin Dose 40 MG; Start 05/15/18 at 09:00 Carvedilol (Coreg) 6.25 mg BID PO Last administered on 05/23/18at 08:13; Admin Dose 6.25 MG; Start 05/14/18 at 21:00 Cholecalciferol (Vitamin D) 400 units DAILY PO Last administered on 05/23/18at 08:11; Admin Dose 400 UNITS; Start 05/15/18 at 09:00 Docusate Sodium (Colace) 250 mg BID PO Last administered on 05/23/18 08:11; Admin Dose 250 MG; Start 05/14/18 at 21:00 Donepezil HCl (Aricept) 10 mg DAILY PO Last administered on 05/23/18 08:13; Admin Dose 10 MG; Start 05/15/18 at 09:00 Dutasteride (Avodart) 0.5 mg DAILY PO Last administered on 05/23/18 08:13; Admin Dose 0.5 MG; Start 05/15/18 at 09:00 Memantine (Namenda) 10 mg DAILY PO Last administered on 05/23/18 08:11; Admin Dose 10 MG; Start 05/15/18 at 09:00 Risperidone (Risperdal) 0.5 mg DAILY PO Last administered on 05/23/18 08:11; Admin Dose 0.5 MG; Start 05/15/18 at 09:00 Tamsulosin HCl (Flomax) 0.4 mg HS PO Last administered on 05/22/18 20:44; Admin Dose 0.4 MG; Start 05/14/18 at 21:00 Escitalopram Oxalate (Lexapro) 5 mg QHS PO Last administered on 05/22/18 20:45; Admin Dose 5 MG; Start 05/15/18 at 21:00 Pantoprazole (Protonix Tab) 40 mg DAILY@06 PO Last administered on 05/23/18 05:59; Admin Dose 40 MG; Start 05/15/18 at 06:00 Aspirin (Halfprin) 81 mg DAILY PO Last administered on 05/23/18 08:11; Admin Dose 81 MG; Start 05/17/18 at 12:30 Albuterol/ Ipratropium (Duoneb) 3 ml Q4H RESP THERAPY PRN HHN SHORTNESS OF BREATH; Start 05/18/18 at 16:30 Morphine Sulfate (morphine) 6 mg Q4H PRN PO SEVERE PAIN LEVEL 7-10; Start 05/19/18 at 16:00 FROYLAN ALVAREZ May 23, 2018 13:42
[2018-05-23 14:52] VITALS: BP 121/68; PULSE 70; RESP 18
[2018-05-23 19:36] VITALS: BP 122/66; PULSE 73; RESP 18
[2018-05-23] MEDS: TAMSULOSIN (SR) 0.4 MG CAP PO SCH (20:15)
[2018-05-23] MEDS: ESCITALOPRAM 10 MG TAB PO SCH (20:16)
[2018-05-24 01:42] VITALS: BP 125/70; PULSE 76; RESP 18
[2018-05-24] MEDS: PANTOPRAZOLE (EC) 40 MG TAB PO SCH (05:09)
[2018-05-24 08:19] VITALS: BP 136/83; PULSE 68; RESP 17
[2018-05-24] MEDS: DOCUSATE SODIUM 250 MG CAP PO SCH ×2 (08:22→20:17)
[2018-05-24] MEDS: ASPIRIN (EC) 81 MG TAB PO SCH (08:22)
[2018-05-24] MEDS: DUTASTERIDE 0.5 MG CAP PO SCH (08:22)
[2018-05-24] MEDS: RISPERIDONE 0.25 MG TAB PO SCH (08:22)
[2018-05-24] MEDS: CHOLECALCIFEROL 400 UNITS TAB PO SCH (08:22)
[2018-05-24] MEDS: MEMANTINE 10 MG TAB PO SCH (08:22)
[2018-05-24] MEDS: BENAZEPRIL 40 MG TAB PO SCH (08:23)
[2018-05-24] MEDS: DONEPEZIL 10 MG TAB PO SCH (08:23)
[2018-05-24 15:10] VITALS: BP 115/68; PULSE 67; RESP 17
--- NOTE | 2018-05-24 15:29 | PN ---
Date/Time of Note Date/Time of Note DATE: 05/24/18 TIME: 15:27 Assessment/Plan VTE Prophylaxis Risk score (from Nsg)>0 risk: 4 SCD applied (from Nsg): No Lines/Catheters IV Catheter Type (from Nrsg): Saline Lock Urinary Cath still in place: No Assessment/Plan Hospital Course Patient remains hemodynamically stable, afebrile. Assessment/Plan -Iron deficiency, patient is started on Ferrlecit -Pancytopenia. Dr. Carrera is following in hematology consultation. S/p bone marrow biopsy. -Hypertension, continue Coreg and lisinopril. -Preserved ejection fraction per 2D echo -Depression, continue Lexapro -Dementia, continue Aricept and Namenda -Atelectasis versus minimal infiltrate in the bilateral lower lobes. No fever. Encourage incentive spirometer use. -BPH, continue tamsulosin and finasteride. Further recommendations based on clinical course. Plan of care discussed with Dr. Becker. Result Diagram: 05/23/18 1036 05/23/18 1036 Exam/Review of Systems Exam Vitals Vital Signs Date Temp Pulse Resp B/P (MAP) Pulse Ox O2 O2 Flow FiO2 Time Delivery Rate 05/24/18 98.1 67 17 115/68 95 15:10 (84) 05/22/18 Room Air 14:00 Intake and Output 05/23/18 05/23/18 05/24/18 1515:00 23:00 07:00 IntakeIntake Total 720 ml 240 ml 240 ml BalanceBalance 720 ml 240 ml 240 ml Exam Constitutional: alert, oriented Respiratory: diminished breath sounds Cardiovascular: nl pulses Gastrointestinal: soft, non-tender Musculoskeletal: nl extremities to inspection Extremities: normal pulses Medications Medication Current Medications IV Flush (NS 3 ml) 3 ml PER PROTOCOL IV ; Start 05/13/18 at 21:00 Ondansetron HCl (Zofran Inj) 4 mg Q6H PRN IV NAUSEA/VOMITING; Start 05/13/18 at 21:00 Acetaminophen (Tylenol Tab) 650 mg Q6H PRN PO .PAIN 1-3 OR TEMP Last administered on 05/14/18at 14:05; Admin Dose 650 MG; Start 05/13/18 at 21:00 Acetaminophen (Tylenol Tab) 650 mg Q6H PRN PO PAIN LEVEL 1-10/10; Start 05/14/18 at 19:00 Benazepril HCl (Lotensin) 40 mg DAILY PO Last administered on 05/24/18 08:23; Admin Dose 40 MG; Start 05/15/18 at 09:00 Carvedilol (Coreg) 6.25 mg BID PO Last administered on 05/24/18 08:24; Admin Dose 6.25 MG; Start 05/14/18 at 21:00 Cholecalciferol (Vitamin D) 400 units DAILY PO Last administered on 05/24/18 08:22; Admin Dose 400 UNITS; Start 05/15/18 at 09:00 Docusate Sodium (Colace) 250 mg BID PO Last administered on 05/24/18 08:22; Admin Dose 250 MG; Start 05/14/18 at 21:00 Donepezil HCl (Aricept) 10 mg DAILY PO Last administered on 05/24/18 08:23; Admin Dose 10 MG; Start 05/15/18 at 09:00 Dutasteride (Avodart) 0.5 mg DAILY PO Last administered on 05/24/18 08:22; Admin Dose 0.5 MG; Start 05/15/18 at 09:00 Memantine (Namenda) 10 mg DAILY PO Last administered on 05/24/18 08:22; Admin Dose 10 MG; Start 05/15/18 at 09:00 Risperidone (Risperdal) 0.5 mg DAILY PO Last administered on 05/24/18 08:22; Admin Dose 0.5 MG; Start 05/15/18 at 09:00 Tamsulosin HCl (Flomax) 0.4 mg HS PO Last administered on 05/23/18 20:15; Admin Dose 0.4 MG; Start 05/14/18 at 21:00 Escitalopram Oxalate (Lexapro) 5 mg QHS PO Last administered on 05/23/18 20:16; Admin Dose 5 MG; Start 05/15/18 at 21:00 Pantoprazole (Protonix Tab) 40 mg DAILY@06 PO Last administered on 05/24/18 05:09; Admin Dose 40 MG; Start 05/15/18 at 06:00 Aspirin (Halfprin) 81 mg DAILY PO Last administered on 05/24/18 08:22; Admin Dose 81 MG; Start 2/4/19 at 12:30 Albuterol/ Ipratropium (Duoneb) 3 ml Q4H RESP THERAPY PRN HHN SHORTNESS OF BREATH; Start 05/18/18 at 16:30 Morphine Sulfate (morphine) 6 mg Q4H PRN PO SEVERE PAIN LEVEL 7-10; Start 05/19/18 at 16:00 JOYCE CHOW May 24, 2018 15:29
[2018-05-24 19:52] VITALS: BP 125/66; PULSE 71; RESP 20
[2018-05-24] MEDS: TAMSULOSIN (SR) 0.4 MG CAP PO SCH (20:17)
[2018-05-24] MEDS: ESCITALOPRAM 10 MG TAB PO SCH (20:17)
[2018-05-25 02:26] VITALS: BP 126/65; PULSE 80; RESP 18
[2018-05-25] MEDS: PANTOPRAZOLE (EC) 40 MG TAB PO SCH (05:40)
[2018-05-25 08:00] VITALS: BP 110/70; PULSE 67; RESP 18
[2018-05-25] MEDS: DONEPEZIL 10 MG TAB PO SCH (08:35)
[2018-05-25] MEDS: BENAZEPRIL 40 MG TAB PO SCH (08:35)
[2018-05-25] MEDS: DOCUSATE SODIUM 250 MG CAP PO SCH ×2 (08:35→20:43)
[2018-05-25] MEDS: DUTASTERIDE 0.5 MG CAP PO SCH (08:35)
[2018-05-25] MEDS: ASPIRIN (EC) 81 MG TAB PO SCH (08:36)
[2018-05-25] MEDS: RISPERIDONE 0.25 MG TAB PO SCH (08:36)
[2018-05-25] MEDS: CHOLECALCIFEROL 400 UNITS TAB PO SCH (08:36)
[2018-05-25] MEDS: MEMANTINE 10 MG TAB PO SCH (09:16)
[2018-05-25 14:00] VITALS: BP 103/64; PULSE 63; RESP 16
--- NOTE | 2018-05-25 14:37 | CONS ---
Assessment/Plan Assessment/Plan Assessment/Plan (Daily) #leukopenia- WBC 2.5 #thrombocytopenia- platelets 110 #Alzheimer dementia -pt did have an abdominal ultrasound done in 08/2017 that demonstrated fatty liver which may be the underlying cause of patient's pancytopenia -although given how persistent this pancytopenia has been we need to rule out MDS at this time -05/19/18- Patient is SP bone marrow biopsy- doing well. - 05/21/2018- bx results reveal absence of iron in the bone marrow. Also there is no obvious evidence of MDS but MDS FISH Panel and cytogenetics are currently pending. -no obvious evidence of vitamin b12 or folate deficiency -SPEP ordered- PENDING -LDH - 312 ;slightly below normal; Patient seen in collaboration with Dr Carrera Consultation Date/Type/Reason Admit Date/Time resting in chair feels better no new events reported last night Initial Consult Date 05/18/18 Type of Consult HEMATOLOGY Reason for Consultation Pancytopenia Requesting Provider: MARTA MCGUIRE MD Date/Time of Note DATE: 05/25/18 TIME: 14:37 24 HR Interval Summary Free Text/Dictation resting in bed feels better no new events reported last night Detailed Summary Eyes: no complaints ENT: no complaints Respiratory: no complaints Cardiovascular: no complaints Gastrointestinal: no complaints Musculoskeletal: no complaints Exam/Review of Systems Exam Vitals Vital Signs Date Temp Pulse Resp B/P (MAP) Pulse Ox O2 O2 Flow FiO2 Time Delivery Rate 05/25/18 97.9 67 18 110/70 96 08:00 (83) 05/22/18 Room Air 14:00 Intake and Output 05/24/18 05/24/18 05/25/18 1515:00 23:00 07:00 IntakeIntake Total 400 ml 920 ml BalanceBalance 400 ml 920 ml Constitutional: alert, well developed Psych: nl mood/affect Head: normocephalic Eyes: nl conjunctiva, nl lids ENMT: nl external ears & nose Neck: supple Respiratory: clear to auscultation Cardiovascular: regular rate and rhythm, diastolic murmur Results Result Diagram: 05/25/18 0828 05/25/18 0828 Results 24hrs Laboratory Tests Test 05/25/18 08:28 White Blood Count 2.6 L Red Blood Count 4.72 Hemoglobin 12.5 L Hematocrit 39.3 L Mean Corpuscular Volume 83.3 Mean Corpuscular Hemoglobin 26.5 L Mean Corpuscular Hemoglobin Concent 31.8 L Red Cell Distribution Width 15.2 H Platelet Count 96 L Mean Platelet Volume 10.7 H Immature Granulocytes % 0.400 Neutrophils % 34.8 L Lymphocytes % 44.5 Monocytes % 19.9 H Eosinophils % 0.4 Basophils % 0.0 Nucleated Red Blood Cells % 0.0 Immature Granulocytes # 0.010 Neutrophils # 0.9 L Lymphocytes # 1.1 Monocytes # 0.5 Eosinophils # 0.0 Basophils # 0.0 Nucleated Red Blood Cells # 0.0 Sodium Level 140 Potassium Level 4.3 Chloride Level 106 Carbon Dioxide Level 32 H Anion Gap 2 #L Blood Urea Nitrogen 13 Creatinine 0.90 Est Glomerular Filtrat Rate mL/min Glucose Level 104 Calcium Level 9.3 Medications Medication Current Medications IV Flush (NS 3 ml) 3 ml PER PROTOCOL IV ; Start 05/13/18 at 21:00 Ondansetron HCl (Zofran Inj) 4 mg Q6H PRN IV NAUSEA/VOMITING; Start 05/13/18 at 21:00 Acetaminophen (Tylenol Tab) 650 mg Q6H PRN PO .PAIN 1-3 OR TEMP Last administer ed on 05/14/18at 14:05; Admin Dose 650 MG; Start 05/13/18 at 21:00 Acetaminophen (Tylenol Tab) 650 mg Q6H PRN PO PAIN LEVEL 1-10/10; Start 05/14/18 at 19:00 Benazepril HCl (Lotensin) 40 mg DAILY PO Last administered on 05/25/18 08:35; Admin Dose 40 MG; Start 05/15/18 at 09:00 Carvedilol (Coreg) 6.25 mg BID PO Last administered on 05/25/18 08:36; Admin Dose 6.25 MG; Start 05/14/18 at 21:00 Cholecalciferol (Vitamin D) 400 units DAILY PO Last administered on 05/25/18 08:36; Admin Dose 400 UNITS; Start 05/15/18 at 09:00 Docusate Sodium (Colace) 250 mg BID PO Last administered on 05/25/18 08:35; Admin Dose 250 MG; Start 05/14/18 at 21:00 Donepezil HCl (Aricept) 10 mg DAILY PO Last administered on 05/25/18 08:35; Admin Dose 10 MG; Start 05/15/18 at 09:00 Dutasteride (Avodart) 0.5 mg DAILY PO Last administered on 05/25/18 08:35; Admin Dose 0.5 MG; Start 05/15/18 at 09:00 Memantine (Namenda) 10 mg DAILY PO Last administered on 05/25/18 09:16; Admin Dose 10 MG; Start 05/15/18 at 09:00 Risperidone (Risperdal) 0.5 mg DAILY PO Last administered on 05/25/18 08:36; Admin Dose 0.5 MG; Start 05/15/18 at 09:00 Tamsulosin HCl (Flomax) 0.4 mg HS PO Last administered on 05/24/18 20:17; Admin Dose 0.4 MG; Start 05/14/18 at 21:00 Escitalopram Oxalate (Lexapro) 5 mg QHS PO Last administered on 05/24/18 20:17; Admin Dose 5 MG; Start 05/15/18 at 21:00 Pantoprazole (Protonix Tab) 40 mg DAILY@06 PO Last administered on 05/25/18 05:40; Admin Dose 40 MG; Start 05/15/18 at 06:00 Aspirin (Halfprin) 81 mg DAILY PO Last administered on 05/25/18 08:36; Admin Dose 81 MG; Start 05/17/18 at 12:30 Albuterol/ Ipratropium (Duoneb) 3 ml Q4H RESP THERAPY PRN HHN SHORTNESS OF BREATH; Start 05/18/18 at 16:30 Morphine Sulfate (morphine) 6 mg Q4H PRN PO SEVERE PAIN LEVEL 7-10; Start 05/19/18 at 16:00 FROYLAN ALVAREZ May 25, 2018 14:37
--- NOTE | 2018-05-25 18:59 | PN ---
Date/Time of Note Date/Time of Note DATE: 05/25/18 TIME: 18:55 Assessment/Plan VTE Prophylaxis Risk score (from [facility]0 risk: 4 SCD applied (from [facility]): Yes Pharmacological prophylaxis: NA/contraindicated Pharm contraindication: thrombocytopenia Lines/Catheters IV [facility] Saline Lock Urinary Cath still in place: No Assessment/Plan Hospital Course No acute events overnight, patient remains hemodynamically stable, afebrile. Assessment/Plan -Iron deficiency, patient is started on Ferrlecit -Pancytopenia. Dr. Carrera is following in hematology consultation. S/p bone marrow biopsy. -Hypertension, continue Coreg and lisinopril. -Preserved ejection fraction per 2D echo -Depression, continue Lexapro -Dementia, continue Aricept and Namenda -Atelectasis versus minimal infiltrate in the bilateral lower lobes. No fever. Encourage incentive spirometer use. -BPH, continue tamsulosin and finasteride. Further recommendations based on clinical course. Plan of care discussed with Dr. Becker. Result Diagram: 05/25/1882705/25/1828 Results 24hrs Laboratory Tests Test 05/25/18 08:28 White Blood Count 2.6 L Red Blood Count 4.72 Hemoglobin 12.5 L Hematocrit 39.3 L Mean Corpuscular Volume 83.3 Mean Corpuscular Hemoglobin 26.5 L Mean Corpuscular Hemoglobin Concent 31.8 L Red Cell Distribution Width 15.2 H Platelet Count 96 L Mean Platelet Volume 10.7 H Immature Granulocytes % 0.400 Neutrophils % 34.8 L Lymphocytes % 44.5 Monocytes % 19.9 H Eosinophils % 0.4 Basophils % 0.0 Nucleated Red Blood Cells % 0.0 Immature Granulocytes # 0.010 Neutrophils # 0.9 L Lymphocytes # 1.1 Monocytes # 0.5 Eosinophils # 0.0 Basophils # 0.0 Nucleated Red Blood Cells # 0.0 Sodium Level 140 Potassium Level 4.3 Chloride Level 106 Carbon Dioxide Level 32 H Anion Gap 2 #L Blood Urea Nitrogen 13 Creatinine 0.90 Est Glomerular Filtrat Rate mL/min Glucose Level 104 Calcium Level 9.3 Exam/Review of Systems Exam Vitals Vital Signs Date Temp Pulse Resp B/P (MAP) Pulse Ox O2 O2 Flow FiO2 Time Delivery Rate 05/25/18 98.1 63 16 103/64 94 14:00 (77) 05/22/18 Room Air 14:00 Intake and Output 05/24/18 05/24/18 05/25/18 1515:00 23:00 07:00 IntakeIntake Total 400 ml 920 ml BalanceBalance 400 ml 920 ml Exam Constitutional: alert, oriented Respiratory: diminished breath sounds Cardiovascular: nl pulses Gastrointestinal: soft, non-tender Musculoskeletal: nl extremities to inspection Extremities: normal pulses Results Results 24hrs Laboratory Tests Test 05/25/18 08:28 White Blood Count 2.6 L Red Blood Count 4.72 Hemoglobin 12.5 L Hematocrit 39.3 L Mean Corpuscular Volume 83.3 Mean Corpuscular Hemoglobin 26.5 L Mean Corpuscular Hemoglobin Concent 31.8 L Red Cell Distribution Width 15.2 H Platelet Count 96 L Mean Platelet Volume 10.7 H Immature Granulocytes % 0.400 Neutrophils % 34.8 L Lymphocytes % 44.5 Monocytes % 19.9 H Eosinophils % 0.4 Basophils % 0.0 Nucleated Red Blood Cells % 0.0 Immature Granulocytes # 0.010 Neutrophils # 0.9 L Lymphocytes # 1.1 Monocytes # 0.5 Eosinophils # 0.0 Basophils # 0.0 Nucleated Red Blood Cells # 0.0 Sodium Level 140 Potassium Level 4.3 Chloride Level 106 Carbon Dioxide Level 32 H Anion Gap 2 #L Blood Urea Nitrogen 13 Creatinine 0.90 Est Glomerular Filtrat Rate mL/min Glucose Level 104 Calcium Level 9.3 Medications Medication Current Medications IV Flush (NS 3 ml) 3 ml PER PROTOCOL IV ; Start 05/13/18 at 21:00 Ondansetron HCl (Zofran Inj) 4 mg Q6H PRN IV NAUSEA/VOMITING; Start 05/13/18 at 21:00 Acetaminophen (Tylenol Tab) 650 mg Q6H PRN PO .PAIN 1-3 OR TEMP Last administered on 05/14/18at 14:05; Admin Dose 650 MG; Start 05/13/18 at 21:00 Acetaminophen (Tylenol Tab) 650 mg Q6H PRN PO PAIN LEVEL 1-10/10; Start 05/14/18 at 19:00 Benazepril HCl (Lotensin) 40 mg DAILY PO Last administered on 05/25/18at 08:35; Admin Dose 40 MG; Start 05/15/18 at 09:00 Carvedilol (Coreg) 6.25 mg BID PO Last administered on 05/25/18 08:36; Admin Dose 6.25 MG; Start 05/14/18 at 21:00 Cholecalciferol (Vitamin D) 400 units DAILY PO Last administered on 05/25/18 08:36; Admin Dose 400 UNITS; Start 05/15/18 at 09:00 Docusate Sodium (Colace) 250 mg BID PO Last administered on 05/25/18 08:35; Admin Dose 250 MG; Start 05/14/18 at 21:00 Donepezil HCl (Aricept) 10 mg DAILY PO Last administered on 05/25/18 08:35; Admin Dose 10 MG; Start 05/15/18 at 09:00 Dutasteride (Avodart) 0.5 mg DAILY PO Last administered on 05/25/18 08:35; Admin Dose 0.5 MG; Start 05/15/18 at 09:00 Memantine (Namenda) 10 mg DAILY PO Last administered on 05/25/18 09:16; Admin Dose 10 MG; Start 05/15/18 at 09:00 Risperidone (Risperdal) 0.5 mg DAILY PO Last administered on 05/25/18 08:36; Admin Dose 0.5 MG; Start 05/15/18 at 09:00 Tamsulosin HCl (Flomax) 0.4 mg HS PO Last administered on 05/24/18 20:17; Admin Dose 0.4 MG; Start 05/14/18 at 21:00 Escitalopram Oxalate (Lexapro) 5 mg QHS PO Last administered on 05/24/18 20:17; Admin Dose 5 MG; Start 05/15/18 at 21:00 Pantoprazole (Protonix Tab) 40 mg DAILY@06 PO Last administered on 05/25/18 05:40; Admin Dose 40 MG; Start 05/15/18 at 06:00 Aspirin (Halfprin) 81 mg DAILY PO Last administered on 05/25/18 08:36; Admin Dose 81 MG; Start 05/17/18 at 12:30 Albuterol/ Ipratropium (Duoneb) 3 ml Q4H RESP THERAPY PRN HHN SHORTNESS OF BREATH; Start 05/18/18 at 16:30 Morphine Sulfate (morphine) 6 mg Q4H PRN PO SEVERE PAIN LEVEL 7-10; Start 05/19/18 at 16:00 Ferric Sodium Gluconate Complex 125 mg/Sodium Chloride 110 ml @ 110 mls/hr DAILY@1300 IVPB ; Start 05/26/18 at 13:00; Stop 05/30/18 at 13:59 JOYCE CHOW May 25, 2018 18:59
[2018-05-25 19:44] VITALS: BP 126/77; PULSE 80; RESP 18
[2018-05-25] MEDS: TAMSULOSIN (SR) 0.4 MG CAP PO SCH (20:43)
[2018-05-25] MEDS: ESCITALOPRAM 10 MG TAB PO SCH (20:43)
[2018-05-26 01:54] VITALS: BP 104/62; PULSE 83; RESP 18
[2018-05-26] MEDS: PANTOPRAZOLE (EC) 40 MG TAB PO SCH (05:52)
[2018-05-26 07:58] VITALS: BP 109/68; PULSE 80; RESP 18
[2018-05-26] MEDS: ASPIRIN (EC) 81 MG TAB PO SCH (08:09)
[2018-05-26] MEDS: CHOLECALCIFEROL 400 UNITS TAB PO SCH (08:09)
[2018-05-26] MEDS: MEMANTINE 10 MG TAB PO SCH (08:09)
[2018-05-26] MEDS: RISPERIDONE 0.25 MG TAB PO SCH (08:09)
[2018-05-26] MEDS: DOCUSATE SODIUM 250 MG CAP PO SCH ×2 (08:09→20:43)
[2018-05-26] MEDS: DUTASTERIDE 0.5 MG CAP PO SCH (08:09)
[2018-05-26] MEDS: BENAZEPRIL 40 MG TAB PO SCH (08:09)
[2018-05-26] MEDS: DONEPEZIL 10 MG TAB PO SCH (08:10)
[2018-05-26] MEDS: SOD FERRIC GLUC COMPLX 125 MG in SOD CHLORIDE 0.9% 100 ML IVPB SCH (12:50)
--- NOTE | 2018-05-26 13:19 | CONS ---
Assessment/Plan Assessment/Plan Assessment/Plan (Daily) #leukopenia- WBC 2.6 #thrombocytopenia- platelets 96 #Alzheimer dementia -pt did have an abdominal ultrasound done in 08/2017 that demonstrated fatty liver which may be the underlying cause of patient's pancytopenia -although given how persistent this pancytopenia has been we need to rule out MDS at this time -05/19/18- Patient is SP bone marrow biopsy- doing well. - 05/21/2018- bx results reveal absence of iron in the bone marrow. Also there is no obvious evidence of MDS but MDS FISH Panel and cytogenetics are currently pending. -no obvious evidence of vitamin b12 or folate deficiency -SPEP ordered- PENDING -LDH - 312 ;slightly below normal; Patient seen in collaboration with Dr Carrera Consultation Date/Type/Reason Admit Date/Time May 15, 2018 at 12:37 Initial Consult Date 05/18/18 Type of Consult HEMATOLOGY Reason for Consultation Pancytopenia Requesting Provider: MARTA MCGUIRE MD Date/Time of Note DATE: 05/26/18 TIME: 13:19 Detailed Summary Eyes: no complaints ENT: bleeding Respiratory: no complaints Cardiovascular: no complaints Gastrointestinal: no complaints Genitourinary: no complaints Exam/Review of Systems Exam Vitals Vital Signs Date Temp Pulse Resp B/P (MAP) Pulse Ox O2 O2 Flow FiO2 Time Delivery Rate 05/26/18 97.7 80 18 109/68 96 Room Air 07:58 (82) Intake and Output 05/25/18 05/25/18 05/26/18 1515:00 23:00 07:00 IntakeIntake Total 880 ml BalanceBalance 880 ml Constitutional: alert, well developed Psych: nl mood/affect Head: normocephalic Eyes: EOMI, nl lids ENMT: nl external ears & nose Neck: non-tender Respiratory: clear to auscultation Cardiovascular: nl pulses, other (s1s2) Gastrointestinal: soft, non-tender Musculoskeletal: nl extremities to inspection Neurological: nl speech, confused Skin: nl turgor Results Result Diagram: 05/25/1882705/25/18827 Medications Medication Current Medications IV Flush (NS 3 ml) 3 ml PER PROTOCOL IV ; Start 05/13/18 at 21:00 Ondansetron HCl (Zofran Inj) 4 mg Q6H PRN IV NAUSEA/VOMITING; Start 05/13/18 at 21:00 Acetaminophen (Tylenol Tab) 650 mg Q6H PRN PO .PAIN 1-3 OR TEMP Last administered on 05/14/18 14:05; Admin Dose 650 MG; Start 05/13/18 at 21:00 Acetaminophen (Tylenol Tab) 650 mg Q6H PRN PO PAIN LEVEL 1-10/10; Start 05/14/18 at 19:00 Benazepril HCl (Lotensin) 40 mg DAILY PO Last administered on 05/26/18 08:09; Admin Dose 40 MG; Start 05/15/18 at 09:00 Carvedilol (Coreg) 6.25 mg BID PO Last administered on 05/26/18 08:10; Admin Dose 6.25 MG; Start 05/14/18 at 21:00 Cholecalciferol (Vitamin D) 400 units DAILY PO Last administered on 05/26/18 08:09; Admin Dose 400 UNITS; Start 05/15/18 at 09:00 Docusate Sodium (Colace) 250 mg BID PO Last administered on 05/26/18 08:09; Admin Dose 250 MG; Start 05/14/18 at 21:00 Donepezil HCl (Aricept) 10 mg DAILY PO Last administered on 05/26/18 08:10; Admin Dose 10 MG; Start 05/15/18 at 09:00 Dutasteride (Avodart) 0.5 mg DAILY PO Last administered on 05/26/18 08:09; Admin Dose 0.5 MG; Start 05/15/18 at 09:00 Memantine (Namenda) 10 mg DAILY PO Last administered on 05/26/18 08:09; Admin Dose 10 MG; Start 05/15/18 at 09:00 Risperidone (Risperdal) 0.5 mg DAILY PO Last administered on 05/26/18 08:09; Admin Dose 0.5 MG; Start 05/15/18 at 09:00 Tamsulosin HCl (Flomax) 0.4 mg HS PO Last administered on 05/25/18 20:43; Admin Dose 0.4 MG; Start 05/14/18 at 21:00 Escitalopram Oxalate (Lexapro) 5 mg QHS PO Last administered on 05/25/18 20:43; Admin Dose 5 MG; Start 05/15/18 at 21:00 Pantoprazole (Protonix Tab) 40 mg DAILY@06 PO Last administered on 05/26/18at 05:52; Admin Dose 40 MG; Start 05/15/18 at 06:00 Aspirin (Halfprin) 81 mg DAILY PO Last administered on 05/26/18at 08:09; Admin Dose 81 MG; Start 05/17/18 at 12:30 Albuterol/ Ipratropium (Duoneb) 3 ml Q4H RESP THERAPY PRN HHN SHORTNESS OF TONYA TH; Start 05/18/18 at 16:30 Morphine Sulfate (morphine) 6 mg Q4H PRN PO SEVERE PAIN LEVEL 7-10; Start 05/19/18 at 16:00 Ferric Sodium Gluconate Complex 125 mg/Sodium Chloride 110 ml @ 110 mls/hr DAILY@1300 IVPB Last administered on 05/26/18at 12:50; Admin Dose 110 MLS/HR; Start 05/26/18 at 13:00; Stop 05/30/18 at 13:59 FROYLAN ALVAREZ May 26, 2018 13:19
[2018-05-26 13:47] VITALS: BP 106/57; PULSE 70; RESP 18
--- NOTE | 2018-05-26 18:11 | PN ---
Date/Time of Note Date/Time of Note DATE: 05/26/18 TIME: 18:04 Assessment/Plan VTE Prophylaxis Risk score (from Ns)>0 risk: 4 SCD applied (from Ns): Yes Pharmacological prophylaxis: NA/contraindicated Pharm contraindication: thrombocytopenia Lines/Catheters IV [facility] ([facility] Peripheral IV Urinary Cath still in place: No Assessment/Plan Hospital Course Pt is getting IV iron replacement, awake, alert, hemodynamically stable. F/up on bone marrow biopsy results, hematology recs. Assessment/Plan -Iron deficiency, continue Ferrlecit -Pancytopenia. Dr. Carrera is following in hematology consultation. S/p bone marrow biopsy. -Hypertension, continue Coreg and lisinopril. -Preserved ejection fraction per 2D echo -Depression, continue Lexapro -Dementia, continue Aricept and Namenda -Atelectasis versus minimal infiltrate in the bilateral lower lobes. No fever. Encourage incentive spirometer use. -BPH, continue tamsulosin and finasteride. Further recommendations based on clinical course. Plan of care discussed with Dr. Becker. Result Diagram: 05/25/1882705/25/18827 Exam/Review of Systems Exam Vitals Vital Signs Date Temp Pulse Resp B/P (MAP) Pulse Ox O2 O2 Flow FiO2 Time Delivery Rate 05/26/18 98.4 70 18 106/57 95 Room Air 13:47 (73) Intake and Output 05/25/18 05/25/18 05/26/18 1515:00 23:00 07:00 IntakeIntake Total 880 ml BalanceBalance 880 ml Exam Constitutional: alert, oriented Respiratory: diminished breath sounds Cardiovascular: nl pulses Gastrointestinal: soft, non-tender Musculoskeletal: nl extremities to inspection Extremities: normal pulses Medications Medication Current Medications IV Flush (NS 3 ml) 3 ml PER PROTOCOL IV ; Start 05/13/18 at 21:00 Ondansetron HCl (Zofran Inj) 4 mg Q6H PRN IV NAUSEA/VOMITING; Start 05/13/18 at 21:00 Acetaminophen (Tylenol Tab) 650 mg Q6H PRN PO .PAIN 1-3 OR TEMP Last administered on 05/14/18at 14:05; Admin Dose 650 MG; Start 05/13/18 at 21:00 Acetaminophen (Tylenol Tab) 650 mg Q6H PRN PO PAIN LEVEL 1-10/10; Start 05/14/18 at 19:00 Benazepril HCl (Lotensin) 40 mg DAILY PO Last administered on 05/26/18 08:09; Admin Dose 40 MG; Start 05/15/18 at 09:00 Carvedilol (Coreg) 6.25 mg BID PO Last administered on 05/26/18 08:10; Admin Dose 6.25 MG; Start 05/14/18 at 21:00 Cholecalciferol (Vitamin D) 400 units DAILY PO Last administered on 05/26/18 08:09; Admin Dose 400 UNITS; Start 05/15/18 at 09:00 Docusate Sodium (Colace) 250 mg BID PO Last administered on 05/26/18 08:09; Admin Dose 250 MG; Start 05/14/18 at 21:00 Donepezil HCl (Aricept) 10 mg DAILY PO Last administered on 05/26/18 08:10; Admin Dose 10 MG; Start 05/15/18 at 09:00 Dutasteride (Avodart) 0.5 mg DAILY PO Last administered on 05/26/18 08:09; Admin Dose 0.5 MG; Start 05/15/18 at 09:00 Memantine (Namenda) 10 mg DAILY PO Last administered on 05/26/18 08:09; Admin Dose 10 MG; Start 05/15/18 at 09:00 Risperidone (Risperdal) 0.5 mg DAILY PO Last administered on 05/26/18 08:09; Admin Dose 0.5 MG; Start 05/15/18 at 09:00 Tamsulosin HCl (Flomax) 0.4 mg HS PO Last administered on 05/25/18 20:43; Admin Dose 0.4 MG; Start 05/14/18 at 21:00 Escitalopram Oxalate (Lexapro) 5 mg QHS PO Last administered on 05/25/18 20:43; Admin Dose 5 MG; Start 05/15/18 at 21:00 Pantoprazole (Protonix Tab) 40 mg DAILY@06 PO Last administered on 05/26/18 05:52; Admin Dose 40 MG; Start 05/15/18 at 06:00 Aspirin (Halfprin) 81 mg DAILY PO Last administered on 05/26/18 08:09; Admin Dose 81 MG; Start 05/17/18 at 12:30 Albuterol/ Ipratropium (Duoneb) 3 ml Q4H RESP THERAPY PRN HHN SHORTNESS OF BREATH; Start 05/18/18 at 16:30 Morphine Sulfate (morphine) 6 mg Q4H PRN PO SEVERE PAIN LEVEL 7-10; Start 05/19 at 16:00 Ferric Sodium Gluconate Complex 125 mg/Sodium Chloride 110 ml @ 110 mls/hr DAILY@1300 IVPB Last administered on 05/26/18at 12:50; Admin Dose 110 MLS/HR; Start 05/26/18 at 13:00; Stop 05/30/18 at 13:59 JOYCE CHOW May 26, 2018 18:11
[2018-05-26 20:00] VITALS: BP 149/69; PULSE 72; RESP 18
[2018-05-26] MEDS: TAMSULOSIN (SR) 0.4 MG CAP PO SCH (20:43)
[2018-05-26] MEDS: ESCITALOPRAM 10 MG TAB PO SCH (20:43)
[2018-05-27 02:00] VITALS: BP 124/76; PULSE 70; RESP 19
[2018-05-27] MEDS: PANTOPRAZOLE (EC) 40 MG TAB PO SCH (05:40)
--- NOTE | 2018-05-27 06:57 | CONS ---
Assessment/Plan Assessment/Plan Assessment/Plan (Daily) #leukopenia- WBC 2.8 #thrombocytopenia- platelets 97 #Alzheimer dementia - pt did have an abdominal ultrasound done in 08/2017 that demonstrated fatty liver which may be the underlying cause of patient's pancytopenia - although given how persistent this pancytopenia has been we need to rule out MDS at this time - 05/19/18- Patient is SP bone marrow biopsy- doing well. - 05/21/2018- bx results reveal absence of iron in the bone marrow. Also there is no obvious evidence of MDS but MDS FISH Panel and cytogenetics are currently pending. - no obvious evidence of vitamin b12 or folate deficiency - SPEP ordered- PENDING - LDH - 312 ;slightly below normal; Patient seen in collaboration with Dr Carrera Consultation Date/Type/Reason Admit Date/Time May 15, 2018 at 12:37 pm Initial Consult Date 05/18/18 Type of Consult HEMATOLOGY Reason for Consultation PANCYTOPENIA Requesting Provider: MARTA MCGUIRE MD Date/Time of Note DATE: 05/27/18 TIME: 06:52 24 HR Interval Summary Free Text/Dictation resting; seems comfortable no bleeding reported from any orifice no new events reported last night Detailed Summary Eyes: no complaints ENT: no complaints Respiratory: no complaints Cardiovascular: no complaints Gastrointestinal: no complaints Genitourinary: no complaints Musculoskeletal: no complaints Skin: no complaints Exam/Review of Systems Exam Vitals Vital Signs Date Temp Pulse Resp B/P (MAP) Pulse Ox O2 O2 Flow FiO2 Time Delivery Rate 05/27/18 98.7 70 19 124/76 94 02:00 (92) 05/26/18 Room Air 13:47 Intake and Output 05/26/18 05/26/18 05/27/18 1515:00 23:00 07:00 IntakeIntake Total 110 ml 560 ml BalanceBalance 110 ml 560 ml Constitutional: alert, well developed Psych: nl mood/affect Eyes: EOMI, nl lids, nl sclera ENMT: nl external ears & nose Respiratory: clear to auscultation (bilaterally) Cardiovascular: nl pulses, other (s1s2) Gastrointestinal: soft, non-tender Musculoskeletal: nl extremities to inspection Extremities: normal pulses Neurological: nl speech, confused, other (alert/responsive) Skin: nl turgor Lymph: nontender Results Result Diagram: 05/27/18 0458 05/27/18 0458 Results 24hrs Laboratory Tests Test 05/27/18 04:58 White Blood Count 2.8 L Red Blood Count 4.92 Hemoglobin 13.0 L Hematocrit 40.4 L Mean Corpuscular Volume 82.1 Mean Corpuscular Hemoglobin 26.4 L Mean Corpuscular Hemoglobin Concent 32.2 Red Cell Distribution Width 15.4 H Platelet Count 97 L Mean Platelet Volume 11.4 H Immature Granulocytes % 0.400 Neutrophils % 39.1 Lymphocytes % 41.0 Monocytes % 19.1 H Eosinophils % 0.4 Basophils % 0.0 Nucleated Red Blood Cells % 0.0 Immature Granulocytes # 0.010 Neutrophils # 1.1 L Lymphocytes # 1.1 Monocytes # 0.5 Eosinophils # 0.0 Basophils # 0.0 Nucleated Red Blood Cells # 0.0 Sodium Level 141 Potassium Level 4.0 Chloride Level 104 Carbon Dioxide Level 26 Anion Gap 11 # Blood Urea Nitrogen 15 Creatinine 0.75 Est Glomerular Filtrat Rate mL/min Glucose Level 100 Calcium Level 9.5 Medications Medication Current Medications IV Flush (NS 3 ml) 3 ml PER PROTOCOL IV ; Start 05/13/18 at 21:00 Ondansetron HCl (Zofran Inj) 4 mg Q6H PRN IV NAUSEA/VOMITING; Start 05/13/18 at 21:00 Acetaminophen (Tylenol Tab) 650 mg Q6H PRN PO .PAIN 1-3 OR TEMP Last admin istered on 05/14/18at 14:05; Admin Dose 650 MG; Start 05/13/18 at 21:00 Acetaminophen (Tylenol Tab) 650 mg Q6H PRN PO PAIN LEVEL 1-10/10; Start 05/14/18 at 19:00 Benazepril HCl (Lotensin) 40 mg DAILY PO Last administered on 05/26/18at 08:09; Admin Dose 40 MG; Start 05/15/18 at 09:00 Carvedilol (Coreg) 6.25 mg BID PO Last administered on 05/26/18at 20:45; Admin Dose 6.25 MG; Start 05/14/18 at 21:00 Cholecalciferol (Vitamin D) 400 units DAILY PO Last administered on 05/26/18at 08:09; Admin Dose 400 UNITS; Start 05/15/18 at 09:00 Docusate Sodium (Colace) 250 mg BID PO Last administered on 05/26/18 20:43; Admin Dose 250 MG; Start 05/14/18 at 21:00 Donepezil HCl (Aricept) 10 mg DAILY PO Last administered on 05/26/18 08:10; Admin Dose 10 MG; Start 05/15/18 at 09:00 Dutasteride (Avodart) 0.5 mg DAILY PO Last administered on 05/26/18 08:09; Admin Dose 0.5 MG; Start 05/15/18 at 09:00 Memantine (Namenda) 10 mg DAILY PO Last administered on 05/26/18 08:09; Admin Dose 10 MG; Start 05/15/18 at 09:00 Risperidone (Risperdal) 0.5 mg DAILY PO Last administered on 05/26/18 08:09; Admin Dose 0.5 MG; Start 05/15/18 at 09:00 Tamsulosin HCl (Flomax) 0.4 mg HS PO Last administered on 05/26/18 20:43; Ad min Dose 0.4 MG; Start 05/14/18 at 21:00 Escitalopram Oxalate (Lexapro) 5 mg QHS PO Last administered on 05/26/18 20:43; Admin Dose 5 MG; Start 05/15/18 at 21:00 Pantoprazole (Protonix Tab) 40 mg DAILY@06 PO Last administered on 05/27/18 05:40; Admin Dose 40 MG; Start 05/15/18 at 06:00 Aspirin (Halfprin) 81 mg DAILY PO Last administered on 05/26/18 08:09; Admin Dose 81 MG; Start 05/17/18 at 12:30 Albuterol/ Ipratropium (Duoneb) 3 ml Q4H RESP THERAPY PRN HHN SHORTNESS OF BREATH; Start 05/18/18 at 16:30 Morphine Sulfate (morphine) 6 mg Q4H PRN PO SEVERE PAIN LEVEL 7-10; Start 05/19/18 at 16:00 Ferric Sodium Gluconate Complex 125 mg/Sodium Chloride 110 ml @ 110 mls/hr DAILY@1300 IVPB Last administered on 05/26/18 12:50; Admin Dose 110 MLS/HR; Start 05/26/18 at 13:00; Stop 05/30/18 at 13:59 FROYLAN ALVAREZ May 27, 2018 6:57 am
[2018-05-27 08:02] VITALS: BP 117/70; PULSE 77; RESP 12
[2018-05-27] MEDS: CHOLECALCIFEROL 400 UNITS TAB PO SCH (08:41)
[2018-05-27] MEDS: DUTASTERIDE 0.5 MG CAP PO SCH (08:42)
[2018-05-27] MEDS: ASPIRIN (EC) 81 MG TAB PO SCH (08:42)
[2018-05-27] MEDS: BENAZEPRIL 40 MG TAB PO SCH (08:42)
[2018-05-27] MEDS: MEMANTINE 10 MG TAB PO SCH (08:42)
[2018-05-27] MEDS: DONEPEZIL 10 MG TAB PO SCH (08:42)
[2018-05-27] MEDS: DOCUSATE SODIUM 250 MG CAP PO SCH ×2 (08:42→20:31)
[2018-05-27] MEDS: RISPERIDONE 0.25 MG TAB PO SCH (08:43)
[2018-05-27] MEDS: SOD FERRIC GLUC COMPLX 125 MG in SOD CHLORIDE 0.9% 100 ML IVPB SCH (13:09)
--- NOTE | 2018-05-27 13:37 | PN ---
Date/Time of Note Date/Time of Note DATE: 05/27/18 TIME: 13:34 Assessment/Plan VTE Prophylaxis Risk score (from [facility])>0 risk: 4 SCD applied (from [facility]): Yes Pharmacological prophylaxis: NA/contraindicated Pharm contraindication: thrombocytopenia Lines/Catheters IV [facility] Type (from [facility] Peripheral IV Urinary Cath still in place: No Assessment/Plan Hospital Course No acute events overnight, pt is awake, alert, pleasantly confuses, heard of hraring, getting IV iron, awaits for bone marrow biopsy results, hematology recs. Assessment/Plan -Iron deficiency, continue Ferrlecit -Pancytopenia. Dr. Carrera is following in hematology consultation. S/p bone marrow biopsy. -Hypertension, continue Coreg and lisinopril. -Preserved ejection fraction per 2D echo -Depression, continue Lexapro -Dementia, continue Aricept and Namenda -Atelectasis versus minimal infiltrate in the bilateral lower lobes. No fever. Encourage incentive spirometer use. -BPH, continue tamsulosin and finasteride. Further recommendations based on clinical course. Plan of care discussed with Dr. Becker. Result Diagram: 05/27/188 05/27/188 Results 24hrs Laboratory Tests Test 05/27/18 04:58 White Blood Count 2.8 L Red Blood Count 4.92 Hemoglobin 13.0 L Hematocrit 40.4 L Mean Corpuscular Volume 82.1 Mean Corpuscular Hemoglobin 26.4 L Mean Corpuscular Hemoglobin Concent 32.2 Red Cell Distribution Width 15.4 H Platelet Count 97 L Mean Platelet Volume 11.4 H Immature Granulocytes % 0.400 Neutrophils % 39.1 Lymphocytes % 41.0 Monocytes % 19.1 H Eosinophils % 0.4 Basophils % 0.0 Nucleated Red Blood Cells % 0.0 Immature Granulocytes # 0.010 Neutrophils # 1.1 L Lymphocytes # 1.1 Monocytes # 0.5 Eosinophils # 0.0 Basophils # 0.0 Nucleated Red Blood Cells # 0.0 Sodium Level 141 Potassium Level 4.0 Chloride Level 104 Carbon Dioxide Level 26 Anion Gap 11 # Blood Urea Nitrogen 15 Creatinine 0.75 Est Glomerular Filtrat Rate mL/min Glucose Level 100 Calcium Level 9.5 Exam/Review of Systems Exam Vitals Vital Signs Date Temp Pulse Resp B/P (MAP) Pulse Ox O2 O2 Flow FiO2 Time Delivery Rate 05/27/18 98.4 77 12 117/70 93 Room Air 08:02 (86) Intake and Output 05/26/18 05/26/18 05/27/18 1515:00 23:00 07:00 IntakeIntake Total 110 ml 560 ml BalanceBalance 110 ml 560 ml Exam Constitutional: alert, oriented Respiratory: diminished breath sounds Cardiovascular: nl pulses Gastrointestinal: soft, non-tender Musculoskeletal: nl extremities to inspection Extremities: normal pulses Results Results 24hrs Laboratory Tests Test 05/27/18 04:58 White Blood Count 2.8 L Red Blood Count 4.92 Hemoglobin 13.0 L Hematocrit 40.4 L Mean Corpuscular Volume 82.1 Mean Corpuscular Hemoglobin 26.4 L Mean Corpuscular Hemoglobin Concent 32.2 Red Cell Distribution Width 15.4 H Platelet Count 97 L Mean Platelet Volume 11.4 H Immature Granulocytes % 0.400 Neutrophils % 39.1 Lymphocytes % 41.0 Monocytes % 19.1 H Eosinophils % 0.4 Basophils % 0.0 Nucleated Red Blood Cells % 0.0 Immature Granulocytes # 0.010 Neutrophils # 1.1 L Lymphocytes # 1.1 Monocytes # 0.5 Eosinophils # 0.0 Basophils # 0.0 Nucleated Red Blood Cells # 0.0 Sodium Level 141 Potassium Level 4.0 Chloride Level 104 Carbon Dioxide Level 26 Anion Gap 11 # Blood Urea Nitrogen 15 Creatinine 0.75 Est Glomerular Filtrat Rate mL/min Glucose Level 100 Calcium Level 9.5 Medications Medication Current Medications IV Flush (NS 3 ml) 3 ml PER PROTOCOL IV ; Start 05/13/18 at 21:00 Ondansetron HCl (Zofran Inj) 4 mg Q6H PRN IV NAUSEA/VOMITING; Start 05/13/18 at 21:00 Acetaminophen (Tylenol Tab) 650 mg Q6H PRN PO .PAIN 1-3 OR TEMP Last administered on 05/14/18at 14:05; Admin Dose 650 MG; Start 05/13/18 at 21:00 Acetaminophen (Tylenol Tab) 650 mg Q6H PRN PO PAIN LEVEL 1-10/10; Start 05/14/18 at 19:00 Benazepril HCl (Lotensin) 40 mg DAILY PO Last administered on 05/27/18at 08:42; Admin Dose 40 MG; Start 05/15/18 at 09:00 Carvedilol (Coreg) 6.25 mg BID PO Last administered on 05/27/18 08:43; Admin Dose 6.25 MG; Start 05/14/18 at 21:00 Cholecalciferol (Vitamin D) 400 units DAILY PO Last administered on 05/27/18 08:41; Admin Dose 400 UNITS; Start 05/15/18 at 09:00 Docusate Sodium (Colace) 250 mg BID PO Last administered on 05/27/18 08:42; Admin Dose 250 MG; Start 05/14/18 at 21:00 Donepezil HCl (Aricept) 10 mg DAILY PO Last administered on 05/27/18 08:42; Admin Dose 10 MG; Start 05/15/18 at 09:00 Dutasteride (Avodart) 0.5 mg DAILY PO Last administered on 05/27/18 08:42; Admin Dose 0.5 MG; Start 05/15/18 at 09:00 Memantine (Namenda) 10 mg DAILY PO Last administered on 05/27/18 08:42; Admin Dose 10 MG; Start 05/15/18 at 09:00 Risperidone (Risperdal) 0.5 mg DAILY PO Last administered on 05/27/18 08:43; Admin Dose 0.5 MG; Start 05/15/18 at 09:00 Tamsulosin HCl (Flomax) 0.4 mg HS PO Last administered on 05/26/18 20:43; Admin Dose 0.4 MG; Start 05/14/18 at 21:00 Escitalopram Oxalate (Lexapro) 5 mg QHS PO Last administered on 05/26/18 20:43; Admin Dose 5 MG; Start 05/15/18 at 21:00 Pantoprazole (Protonix Tab) 40 mg DAILY@06 PO Last administered on 05/27/18 05:40; Admin Dose 40 MG; Start 05/15/18 at 06:00 Aspirin (Halfprin) 81 mg DAILY PO Last administered on 05/27/18 08:42; Admin Dose 81 MG; Start 05/17/18 at 12:30 Albuterol/ Ipratropium (Duoneb) 3 ml Q4H RESP THERAPY PRN HHN SHORTNESS OF BREATH; Start 05/18/18 at 16:30 Morphine Sulfate (morphine) 6 mg Q4H PRN PO SEVERE PAIN LEVEL 7-10; Start 05/19/18 at 16:00 Ferric Sodium Gluconate Complex 125 mg/Sodium Chloride 110 ml @ 110 mls/hr DAILY@1300 IVPB Last administered on 05/27/18at 13:09; Admin Dose 110 MLS/HR; Start 05/26/18 at 13:00; Stop 05/30/18 at 13:59 JOYCE CHOW May 27, 2018 13:37
[2018-05-27 14:00] VITALS: BP 122/75; PULSE 76; RESP 18
[2018-05-27 20:00] VITALS: BP 94/58; PULSE 77; RESP 18
[2018-05-27] MEDS: ESCITALOPRAM 10 MG TAB PO SCH (20:31)
[2018-05-27] MEDS: TAMSULOSIN (SR) 0.4 MG CAP PO SCH (20:31)
[2018-05-27] MEDS: morphine LIQ (10 MG/5 ML) CUP PO PRN (20:31)
[2018-05-28 02:20] VITALS: BP 103/51; PULSE 95; RESP 18
[2018-05-28 02:26] VITALS: BP 136/70; PULSE 96; RESP 18
[2018-05-28] MEDS: morphine LIQ (10 MG/5 ML) CUP PO PRN ×3 (03:26→20:11)
[2018-05-28] MEDS: PANTOPRAZOLE (EC) 40 MG TAB PO SCH (06:27)
[2018-05-28 07:50] VITALS: BP 115/79; PULSE 70; RESP 18
[2018-05-28] MEDS: CHOLECALCIFEROL 400 UNITS TAB PO SCH (08:55)
[2018-05-28] MEDS: DOCUSATE SODIUM 250 MG CAP PO SCH ×2 (08:55→20:14)
[2018-05-28] MEDS: ASPIRIN (EC) 81 MG TAB PO SCH (08:55)
[2018-05-28] MEDS: RISPERIDONE 0.25 MG TAB PO SCH (08:55)
[2018-05-28] MEDS: DUTASTERIDE 0.5 MG CAP PO SCH (08:55)
[2018-05-28] MEDS: MEMANTINE 10 MG TAB PO SCH (08:55)
[2018-05-28] MEDS: DONEPEZIL 10 MG TAB PO SCH (08:55)
[2018-05-28] MEDS: BENAZEPRIL 40 MG TAB PO SCH (08:56)
--- NOTE | 2018-05-28 10:48 | PN ---
Date/Time of Note Date/Time of Note DATE: 05/28/18 TIME: 10:48 Assessment/Plan VTE Prophylaxis Risk score (from Nsg)>0 risk: 3 SCD applied (from Nsg): No Lines/Catheters IV Catheter Type (from Nrsg): Saline Lock Urinary Cath still in place: No Assessment/Plan Assessment/Plan -Iron deficiency, continue Ferrlecit -Pancytopenia. Dr. Carrera is following in hematology consultation. S/p bone marrow biopsy. -Hypertension, continue Coreg and lisinopril. -Preserved ejection fraction per 2D echo -Depression, continue Lexapro -Dementia, continue Aricept and Namenda -Atelectasis versus minimal infiltrate in the bilateral lower lobes. No fever. Encourage incentive spirometer use. -BPH, continue tamsulosin and finasteride. Further recommendations based on clinical course. Plan of care discussed with Dr. Becker. Result Diagram: 05/27/188 05/27/18457 Exam/Review of Systems Exam Vitals Vital Signs Date Temp Pulse Resp B/P (MAP) Pulse Ox O2 O2 Flow FiO2 Time Delivery Rate 05/28/18 98.0 70 18 115/79 96 Room Air 07:50 (91) Intake and Output 05/27/18 05/27/18 05/28/18 1414:59 22:59 06:59 IntakeIntake Total 880 ml 200 ml 436 ml OutputOutput Total 500 ml BalanceBalance 380 ml 200 ml 436 ml Medications Medication Current Medications IV Flush (NS 3 ml) 3 ml PER PROTOCOL IV ; Start 05/13/18 at 21:00 Ondansetron HCl (Zofran Inj) 4 mg Q6H PRN IV NAUSEA/VOMITING; Start 05/13/18 at 21:00 Acetaminophen (Tylenol Tab) 650 mg Q6H PRN PO .PAIN 1-3 OR TEMP Last administered on 05/14/18at 14:05; Admin Dose 650 MG; Start 05/13/18 at 21:00 Acetaminophen (Tylenol Tab) 650 mg Q6H PRN PO PAIN LEVEL 1-10/10; Start 05/14/18 at 19:00 Benazepril HCl (Lotensin) 40 mg DAILY PO Last administered on 05/28/18at 08:56; Admin Dose 40 MG; Start 05/15/18 at 09:00 Carvedilol (Coreg) 6.25 mg BID PO Last administered on 05/28/18 08:56; Admin Dose 6.25 MG; Start 05/14/18 at 21:00 Cholecalciferol (Vitamin D) 400 units DAILY PO Last administered on 05/28/18 08:55; Admin Dose 400 UNITS; Start 05/15/18 at 09:00 Docusate Sodium (Colace) 250 mg BID PO Last administered on 05/28/18 08:55; Admin Dose 250 MG; Start 05/14/18 at 21:00 Donepezil HCl (Aricept) 10 mg DAILY PO Last administered on 05/28/18 08:55; Admin Dose 10 MG; Start 05/15/18 at 09:00 Dutasteride (Avodart) 0.5 mg DAILY PO Last administered on 05/28/18 08:55; Admin Dose 0.5 MG; Start 05/15/18 at 09:00 Memantine (Namenda) 10 mg DAILY PO Last administered on 05/28/18 08:55; Admin Dose 10 MG; Start 05/15/18 at 09:00 Risperidone (Risperdal) 0.5 mg DAILY PO Last administered on 05/28/18 08:55; Admin Dose 0.5 MG; Start 05/15/18 at 09:00 Tamsulosin HCl (Flomax) 0.4 mg HS PO Last administered on 05/27/18 20:31; Admin Dose 0.4 MG; Start 05/14/18 at 21:00 Escitalopram Oxalate (Lexapro) 5 mg QHS PO Last administered on 05/27/18 20:31; Admin Dose 5 MG; Start 05/15/18 at 21:00 Pantoprazole (Protonix Tab) 40 mg DAILY@06 PO Last administered on 05/28/18 06:27; Admin Dose 40 MG; Start 05/15/18 at 06:00 Aspirin (Halfprin) 81 mg DAILY PO Last administered on 05/28/18 08:55; Admin Dose 81 MG; Start 05/17/18 at 12:30 Albuterol/ Ipratropium (Duoneb) 3 ml Q4H RESP THERAPY PRN HHN SHORTNESS OF BR EATH; Start 05/18/18 at 16:30 Morphine Sulfate (morphine) 6 mg Q4H PRN PO SEVERE PAIN LEVEL 7-10 Last administered on 05/28/18at 03:26; Admin Dose 6 MG; Start 05/19/18 at 16:00 Ferric Sodium Gluconate Complex 125 mg/Sodium Chloride 110 ml @ 110 mls/hr DAILY@1300 IVPB Last administered on 05/27/18at 13:09; Admin Dose 110 MLS/HR; Start 05/26/18 at 13:00; Stop 05/30/18 at 13:59 FROYLAN ALVAREZ May 28, 2018 10:48 am
[2018-05-28] MEDS: SOD FERRIC GLUC COMPLX 125 MG in SOD CHLORIDE 0.9% 100 ML IVPB SCH (12:04)
[2018-05-28 14:00] VITALS: BP 113/61; PULSE 56; RESP 18
[2018-05-28 20:00] VITALS: BP 145/67; PULSE 77; RESP 19
[2018-05-28] MEDS: ESCITALOPRAM 10 MG TAB PO SCH (20:13)
[2018-05-28] MEDS: TAMSULOSIN (SR) 0.4 MG CAP PO SCH (20:13)
[2018-05-29 02:00] VITALS: BP 112/67; PULSE 81; RESP 17
[2018-05-29] MEDS: PANTOPRAZOLE (EC) 40 MG TAB PO SCH (05:31)
[2018-05-29 08:00] VITALS: BP 125/70; PULSE 78; RESP 18
[2018-05-29] MEDS: DOCUSATE SODIUM 250 MG CAP PO SCH ×2 (08:30→21:14)
[2018-05-29] MEDS: RISPERIDONE 0.25 MG TAB PO SCH (08:30)
[2018-05-29] MEDS: CHOLECALCIFEROL 400 UNITS TAB PO SCH (08:31)
[2018-05-29] MEDS: DUTASTERIDE 0.5 MG CAP PO SCH (08:31)
[2018-05-29] MEDS: MEMANTINE 10 MG TAB PO SCH (08:31)
[2018-05-29] MEDS: ASPIRIN (EC) 81 MG TAB PO SCH (08:31)
[2018-05-29] MEDS: BENAZEPRIL 40 MG TAB PO SCH (08:31)
[2018-05-29] MEDS: DONEPEZIL 10 MG TAB PO SCH (08:32)
--- NOTE | 2018-05-29 11:28 | PN ---
Date/Time of Note Date/Time of Note DATE: 05/29/18 TIME: 11:27 Assessment/Plan VTE Prophylaxis Risk score (from Nsg)>0 risk: 3 SCD applied (from Nsg): No Lines/Catheters IV Catheter Type (from Nrsg): Saline Lock Urinary Cath still in place: No Assessment/Plan Assessment/Plan -Iron deficiency, continue Ferrlecit -Pancytopenia. Dr. Carrera is following in hematology consultation. S/p bone marrow biopsy. -Hypertension, continue Coreg and lisinopril. -Preserved ejection fraction per 2D echo -Depression, continue Lexapro -Dementia, continue Aricept and Namenda -Atelectasis versus minimal infiltrate in the bilateral lower lobes. No fever. Encourage incentive spirometer use. -BPH, continue tamsulosin and finasteride. Further recommendations based on clinical course. Plan of care discussed with Dr. Becker. Result Diagram: 05/27/18 0458 05/27/18457 Exam/Review of Systems Exam Vitals Vital Signs Date Temp Pulse Resp B/P (MAP) Pulse Ox O2 O2 Flow FiO2 Time Delivery Rate 05/29/18 98.2 78 18 125/70 96 Room Air 08:00 (88) Intake and Output 05/28/18 05/28/18 05/29/18 1515:00 23:00 07:00 IntakeIntake Total 950 ml 240 ml 300 ml BalanceBalance 950 ml 240 ml 300 ml Medications Medication Current Medications IV Flush (NS 3 ml) 3 ml PER PROTOCOL IV ; Start 05/13/18 at 21:00 Ondansetron HCl (Zofran Inj) 4 mg Q6H PRN IV NAUSEA/VOMITING; Start 05/13/18 at 21:00 Acetaminophen (Tylenol Tab) 650 mg Q6H PRN PO .PAIN 1-3 OR TEMP Last administe red on 05/14/18at 14:05; Admin Dose 650 MG; Start 05/13/18 at 21:00 Acetaminophen (Tylenol Tab) 650 mg Q6H PRN PO PAIN LEVEL 1-10/10; Start 05/14/18 at 19:00 Benazepril HCl (Lotensin) 40 mg DAILY PO Last administered on 05/29/18at 08:31; Admin Dose 40 MG; Start 05/15/18 at 09:00 Carvedilol (Coreg) 6.25 mg BID PO Last administered on 05/29/18 08:31; Admin Dose 6.25 MG; Start 05/14/18 at 21:00 Cholecalciferol (Vitamin D) 400 units DAILY PO Last administered on 05/29/18 08:31; Admin Dose 400 UNITS; Start 05/15/18 at 09:00 Docusate Sodium (Colace) 250 mg BID PO Last administered on 05/29/18 08:30; Admin Dose 250 MG; Start 05/14/18 at 21:00 Donepezil HCl (Aricept) 10 mg DAILY PO Last administered on 05/29/18 08:32; Admin Dose 10 MG; Start 05/15/18 at 09:00 Dutasteride (Avodart) 0.5 mg DAILY PO Last administered on 05/29/18 08:31; Admin Dose 0.5 MG; Start 05/15/18 at 09:00 Memantine (Namenda) 10 mg DAILY PO Last administered on 05/29/18 08:31; Admin Dose 10 MG; Start 05/15/18 at 09:00 Risperidone (Risperdal) 0.5 mg DAILY PO Last administered on 05/29/18 08:30; Admin Dose 0.5 MG; Start 05/15/18 at 09:00 Tamsulosin HCl (Flomax) 0.4 mg HS PO Last administered on 05/28/18 20:13; Admin Dose 0.4 MG; Start 05/14/18 at 21:00 Escitalopram Oxalate (Lexapro) 5 mg QHS PO Last administered on 05/28/18 20:13; Admin Dose 5 MG; Start 05/15/18 at 21:00 Pantoprazole (Protonix Tab) 40 mg DAILY@06 PO Last administered on 05/29/18 05:31; Admin Dose 40 MG; Start 05/15/18 at 06:00 Aspirin (Halfprin) 81 mg DAILY PO Last administered on 05/29/18 08:31; Admin Dose 81 MG; Start 05/17/18 at 12:30 Albuterol/ Ipratropium (Duoneb) 3 ml Q4H RESP THERAPY PRN HHN SHORTNESS OF BREATH; Start 05/18/18 at 16:30 Morphine Sulfate (morphine) 6 mg Q4H PRN PO SEVERE PAIN LEVEL 7-10 Last administered on 05/28/18at 20:11; Admin Dose 6 MG; Start 05/19/18 at 16:00 Ferric Sodium Gluconate Complex 125 mg/Sodium Chloride 110 ml @ 110 mls/hr DAILY@1300 IVPB Last administered on 05/28/18at 12:04; Admin Dose 110 MLS/HR; Start 05/26/18 at 13:00; Stop 05/30/18 at 13:59 FROYLAN ALVAREZ May 29, 2018 11:28 am
[2018-05-29] MEDS: SOD FERRIC GLUC COMPLX 125 MG in SOD CHLORIDE 0.9% 100 ML IVPB SCH (13:15)
[2018-05-29 14:00] VITALS: BP 137/70; PULSE 71; RESP 18
[2018-05-29 20:00] VITALS: BP 104/64; PULSE 74; RESP 18
[2018-05-29] MEDS: ESCITALOPRAM 10 MG TAB PO SCH (21:14)
[2018-05-29] MEDS: TAMSULOSIN (SR) 0.4 MG CAP PO SCH (21:15)
[2018-05-30 01:53] VITALS: BP 122/62; PULSE 85; RESP 18
[2018-05-30] MEDS: PANTOPRAZOLE (EC) 40 MG TAB PO SCH (06:24)
[2018-05-30 07:51] VITALS: BP 133/76; PULSE 69; RESP 18
[2018-05-30] MEDS: RISPERIDONE 0.25 MG TAB PO SCH (08:17)
[2018-05-30] MEDS: DUTASTERIDE 0.5 MG CAP PO SCH (08:17)
[2018-05-30] MEDS: DOCUSATE SODIUM 250 MG CAP PO SCH ×2 (08:17→20:27)
[2018-05-30] MEDS: MEMANTINE 10 MG TAB PO SCH (08:17)
[2018-05-30] MEDS: BENAZEPRIL 40 MG TAB PO SCH (08:17)
[2018-05-30] MEDS: ASPIRIN (EC) 81 MG TAB PO SCH (08:17)
[2018-05-30] MEDS: CHOLECALCIFEROL 400 UNITS TAB PO SCH (08:17)
[2018-05-30] MEDS: DONEPEZIL 10 MG TAB PO SCH (08:17)
[2018-05-30 08:25] VITALS: BP 116/54; PULSE 89; RESP 16
[2018-05-30] MEDS: SOD FERRIC GLUC COMPLX 125 MG in SOD CHLORIDE 0.9% 100 ML IVPB SCH (11:24)
[2018-05-30 14:36] VITALS: BP 122/76; PULSE 64; RESP 18
--- NOTE | 2018-05-30 14:59 | PN ---
Date/Time of Note Date/Time of Note DATE: 05/30/18 TIME: 14:58 Assessment/Plan VTE Prophylaxis Risk score (from Nsg)>0 risk: 4 SCD applied (from Nsg): Yes Lines/Catheters IV Catheter Type (from Nrsg): Saline Lock Urinary Cath still in place: No Assessment/Plan Assessment/Plan -Iron deficiency, continue Ferrlecit -Pancytopenia. Dr. Carrera is following in hematology consultation. S/p bone marrow biopsy. -Hypertension, continue Coreg and lisinopril. -Preserved ejection fraction per 2D echo -Depression, continue Lexapro -Dementia, continue Aricept and Namenda -Atelectasis versus minimal infiltrate in the bilateral lower lobes. No fever. Encourage incentive spirometer use. -BPH, continue tamsulosin and finasteride. Further recommendations based on clinical course. Plan of care discussed with Dr. Becker. Result Diagram: 05/27/188 05/27/18457 Exam/Review of Systems Exam Vitals Vital Signs Date Temp Pulse Resp B/P (MAP) Pulse Ox O2 O2 Flow FiO2 Time Delivery Rate 05/30/18 98.2 64 18 122/76 98 14:36 (91) 05/29/18 Room Air 08:00 Intake and Output 05/29/18 05/29/18 05/30/18 1515:00 23:00 07:00 IntakeIntake Total 990 ml BalanceBalance 990 ml Medications Medication Current Medications IV Flush (NS 3 ml) 3 ml PER PROTOCOL IV ; Start 05/13/18 at 21:00 Ondansetron HCl (Zofran Inj) 4 mg Q6H PRN IV NAUSEA/VOMITING; Start 05/13/18 at 21:00 Acetaminophen (Tylenol Tab) 650 mg Q6H PRN PO .PAIN 1-3 OR TEMP Last administ ered on 05/14/18at 14:05; Admin Dose 650 MG; Start 05/13/18 at 21:00 Acetaminophen (Tylenol Tab) 650 mg Q6H PRN PO PAIN LEVEL 1-10/10; Start 05/14/18 at 19:00 Benazepril HCl (Lotensin) 40 mg DAILY PO Last administered on 05/30/18at 08:17; Admin Dose 40 MG; Start 05/15/18 at 09:00 Carvedilol (Coreg) 6.25 mg BID PO Last administered on 05/30/18 08:18; Admin Dose 6.25 MG; Start 05/14/18 at 21:00 Cholecalciferol (Vitamin D) 400 units DAILY PO Last administered on 05/30/18 08:17; Admin Dose 400 UNITS; Start 05/15/18 at 09:00 Docusate Sodium (Colace) 250 mg BID PO Last administered on 05/30/18 08:17; Admin Dose 250 MG; Start 05/14/18 at 21:00 Donepezil HCl (Aricept) 10 mg DAILY PO Last administered on 05/30/18 08:17; Admin Dose 10 MG; Start 05/15/18 at 09:00 Dutasteride (Avodart) 0.5 mg DAILY PO Last administered on 05/30/18 08:17; Admin Dose 0.5 MG; Start 05/15/18 at 09:00 Memantine (Namenda) 10 mg DAILY PO Last administered on 05/30/18 08:17; Admin Dose 10 MG; Start 05/15/18 at 09:00 Risperidone (Risperdal) 0.5 mg DAILY PO Last administered on 05/30/18 08:17; Admin Dose 0.5 MG; Start 05/15/18 at 09:00 Tamsulosin HCl (Flomax) 0.4 mg HS PO Last administered on 05/29/18 21:15; Admin Dose 0.4 MG; Start 05/14/18 at 21:00 Escitalopram Oxalate (Lexapro) 5 mg QHS PO Last administered on 05/29/18 21:14; Admin Dose 5 MG; Start 05/15/18 at 21:00 Pantoprazole (Protonix Tab) 40 mg DAILY@06 PO Last administered on 05/30/18 06:24; Admin Dose 40 MG; Start 05/15/18 at 06:00 Aspirin (Halfprin) 81 mg DAILY PO Last administered on 05/30/18 08:17; Admin Dose 81 MG; Start 05/17/18 at 12:30 Albuterol/ Ipratropium (Duoneb) 3 ml Q4H RESP THERAPY PRN HHN SHORTNESS OF BREATH; Start 05/18/18 at 16:30 Morphine Sulfate (morphine) 6 mg Q4H PRN PO SEVERE PAIN LEVEL 7-10 Last administered on 05/28/18at 20:11; Admin Dose 6 MG; Start 05/19/18 at 16:00 FROYLAN ALVAREZ May 30, 2018 2:59 pm
[2018-05-30 19:39] VITALS: BP 106/60; PULSE 68; RESP 18
[2018-05-30] MEDS: ESCITALOPRAM 10 MG TAB PO SCH (20:27)
[2018-05-30] MEDS: TAMSULOSIN (SR) 0.4 MG CAP PO SCH (20:27)
[2018-05-30 20:30] VITALS: BP 145/81; PULSE 81; RESP 19
[2018-05-30] MEDS: ACETAMINOPHEN 325 MG TAB PO PRN (20:33)
[2018-05-31 02:08] VITALS: BP 106/61; PULSE 70; RESP 19
[2018-05-31] MEDS: ACETAMINOPHEN 325 MG TAB PO PRN ×2 (02:15→14:37)
[2018-05-31] MEDS: PANTOPRAZOLE (EC) 40 MG TAB PO SCH (06:29)
[2018-05-31 08:00] VITALS: BP 137/92; PULSE 74; RESP 18
[2018-05-31] MEDS: morphine LIQ (10 MG/5 ML) CUP PO PRN ×2 (08:21→20:34)
[2018-05-31] MEDS: RISPERIDONE 0.25 MG TAB PO SCH (08:22)
[2018-05-31] MEDS: MEMANTINE 10 MG TAB PO SCH (08:22)
[2018-05-31] MEDS: DONEPEZIL 10 MG TAB PO SCH (08:22)
[2018-05-31] MEDS: ASPIRIN (EC) 81 MG TAB PO SCH (08:22)
[2018-05-31] MEDS: DUTASTERIDE 0.5 MG CAP PO SCH (08:22)
[2018-05-31] MEDS: DOCUSATE SODIUM 250 MG CAP PO SCH ×2 (08:22→20:32)
[2018-05-31] MEDS: CHOLECALCIFEROL 400 UNITS TAB PO SCH (08:22)
[2018-05-31] MEDS: BENAZEPRIL 40 MG TAB PO SCH ×2 (08:26→08:51)
[2018-05-31 14:00] VITALS: BP 129/68; PULSE 76; RESP 18
--- NOTE | 2018-05-31 15:40 | PN ---
Date/Time of Note Date/Time of Note DATE: 05/31/18 TIME: 15:35 Assessment/Plan VTE Prophylaxis Risk score (from [facility] [place])>0 risk: 4 SCD applied (from [facility] [place]): Yes Pharmacological prophylaxis: NA/contraindicated Pharm contraindication: thrombocytopenia Lines/Catheters [facility] Saline Lock Urinary Cath still in place: No Assessment/Plan Hospital Course Patient remains hemodynamically stable afebrile, follow-up on final bone marrow biopsy results, hematology recs. Assessment/Plan -Iron deficiency, continue iron supplement -Pancytopenia. Dr. Carrera is following in hematology consultation. S/p bone marrow biopsy. -Hypertension, continue Coreg and lisinopril. -Preserved ejection fraction per 2D echo -Depression, continue Lexapro -Dementia, continue Aricept and Namenda -Atelectasis versus minimal infiltrate in the bilateral lower lobes. No fever. Encourage incentive spirometer use. -BPH, continue tamsulosin and finasteride. Further recommendations based on clinical course. Plan of care discussed with Dr. Becker. Result Diagram: 05/27/18 0458 05/27/18 0458 Exam/Review of Systems Exam Vitals Vital Signs Date Temp Pulse Resp B/P (MAP) Pulse Ox O2 O2 Flow FiO2 Time Delivery Rate 05/31/18 98.1 74 18 137/92 97 08:00 (107) 05/29/18 Room Air 08:00 Intake and Output 05/30/18 05/30/18 05/31/18 1515:00 23:00 07:00 IntakeIntake Total 710 ml 40 ml OutputOutput Total 500 ml BalanceBalance 210 ml 40 ml Exam Constitutional: alert, oriented Respiratory: diminished breath sounds Cardiovascular: nl pulses Gastrointestinal: soft, non-tender Musculoskeletal: nl extremities to inspection Extremities: normal pulses Medications Medication Current Medications IV Flush (NS 3 ml) 3 ml PER PROTOCOL IV ; Start 05/13/18 at 21:00 Ondansetron HCl (Zofran Inj) 4 mg Q6H PRN IV NAUSEA/VOMITING; Start 05/13/18 at 21:00 Acetaminophen (Tylenol Tab) 650 mg Q6H PRN PO .PAIN 1-3 OR TEMP Last administered on 05/31/18at 14:37; Admin Dose 650 MG; Start 05/13/18 at 21:00 Acetaminophen (Tylenol Tab) 650 mg Q6H PRN PO PAIN LEVEL 1-10/10; Start 05/14/18 at 19:00 Benazepril HCl (Lotensin) 40 mg DAILY PO Last administered on 05/31/18 08:51; Admin Dose 40 MG; Start 05/15/18 at 09:00 Carvedilol (Coreg) 6.25 mg BID PO Last administered on 05/31/18 08:51; Admin Dose 6.25 MG; Start 05/14/18 at 21:00 Cholecalciferol (Vitamin D) 400 units DAILY PO Last administered on 05/31/18 08:22; Admin Dose 400 UNITS; Start 05/15/18 at 09:00 Docusate Sodium (Colace) 250 mg BID PO Last administered on 05/31/18 08:22; Admin Dose 250 MG; Start 05/14/18 at 21:00 Donepezil HCl (Aricept) 10 mg DAILY PO Last administered on 05/31/18 08:22; Admin Dose 10 MG; Start 05/15/18 at 09:00 Dutasteride (Avodart) 0.5 mg DAILY PO Last administered on 05/31/18 08:22; Admin Dose 0.5 MG; Start 05/15/18 at 09:00 Memantine (Namenda) 10 mg DAILY PO Last administered on 05/31/18 08:22; Admin Dose 10 MG; Start 05/15/18 at 09:00 Risperidone (Risperdal) 0.5 mg DAILY PO Last administered on 05/31/18 08:22; Admin Dose 0.5 MG; Start 05/15/18 at 09:00 Tamsulosin HCl (Flomax) 0.4 mg HS PO Last administered on 05/30/18 20:27; Admin Dose 0.4 MG; Start 05/14/18 at 21:00 Escitalopram Oxalate (Lexapro) 5 mg QHS PO Last administered on 05/30/18 20:27; Admin Dose 5 MG; Start 05/15/18 at 21:00 Pantoprazole (Protonix Tab) 40 mg DAILY@06 PO Last administered on 05/31/18 06:29; Admin Dose 40 MG; Start 05/15/18 at 06:00 Aspirin (Halfprin) 81 mg DAILY PO Last administered on 05/31/18 08:22; Admin Dose 81 MG; Start 05/17/18 at 12:30 Albuterol/ Ipratropium (Duoneb) 3 ml Q4H RESP THERAPY PRN HHN SHORTNESS OF BREATH; Start 05/18/18 at 16:30 Morphine Sulfate (morphine) 6 mg Q4H PRN PO SEVERE PAIN LEVEL 7-10 Last administered on 05/31/18 08:21; Admin Dose 6 MG; Start 05/19/18 at 16:00 JOYCE CHOW May 31, 2018 15:40
[2018-05-31 19:30] VITALS: BP 105/54; PULSE 74; RESP 18
[2018-05-31 20:29] VITALS: BP 142/69; PULSE 87
[2018-05-31] MEDS: TAMSULOSIN (SR) 0.4 MG CAP PO SCH (20:32)
[2018-05-31] MEDS: ESCITALOPRAM 10 MG TAB PO SCH (20:32)
[2018-06-01 01:52] VITALS: BP 141/77; PULSE 80; RESP 18
[2018-06-01] MEDS: morphine LIQ (10 MG/5 ML) CUP PO PRN ×3 (03:23→15:12)
[2018-06-01] MEDS: PANTOPRAZOLE (EC) 40 MG TAB PO SCH (05:28)
[2018-06-01] MEDS: ACETAMINOPHEN 325 MG TAB PO PRN ×2 (05:28→13:21)
[2018-06-01 07:49] VITALS: BP 131/68; PULSE 66; RESP 18
[2018-06-01] MEDS: DUTASTERIDE 0.5 MG CAP PO SCH (08:16)
[2018-06-01] MEDS: ASPIRIN (EC) 81 MG TAB PO SCH (08:16)
[2018-06-01] MEDS: RISPERIDONE 0.25 MG TAB PO SCH (08:16)
[2018-06-01] MEDS: CHOLECALCIFEROL 400 UNITS TAB PO SCH (08:16)
[2018-06-01] MEDS: DOCUSATE SODIUM 250 MG CAP PO SCH (08:16)
[2018-06-01] MEDS: DONEPEZIL 10 MG TAB PO SCH (08:16)
[2018-06-01] MEDS: MEMANTINE 10 MG TAB PO SCH (08:16)
[2018-06-01] MEDS: BENAZEPRIL 40 MG TAB PO SCH (08:17)
[2018-06-01 13:56] VITALS: BP 103/58; PULSE 72; RESP 16
--- NOTE | 2018-06-01 18:06 | DS ---
Date/Time of Note Date/Time of Note DATE: 06/01/18 TIME: 18:00 Discharge Summary Admission/Discharge Info Admit Date/Time May 15, 2018 at 12:37 Discharge Date/Time Patient Condition: Stable Hx of Present Illness 82-year-old man brought in by EMS from retirement for recent confusion. He was seen last month for similar symptoms and there was a concern for psychiatric illness and he was evaluated by his psychiatrist. The medical workup early this month was unremarkable. The patient was walking around the retirement today and was going into other peoples rooms and appeared generally confused. He has had no fevers or chills, no vomiting or diarrhea, no complaints of chest pain or shortness of breath. Patient transported here by EMS without further complications Hospital Course -Iron deficiency, continue iron supplement -Pancytopenia. Dr. Carrera is following in hematology consultation. S/p bone marrow biopsy, bone marrow bx results reveal absence of iron in the bone marrow, no obvious evidence of MDS. -Hypertension, continue Coreg and lisinopril. -Preserved ejection fraction per 2D echo -Depression, continue Lexapro -Dementia, continue Aricept and Namenda -Atelectasis versus minimal infiltrate in the bilateral lower lobes. No fever. Encourage incentive spirometer use. -BPH, continue tamsulosin and finasteride. -Mild phlebitis on L hand previous IV site, continue warm compress, abx. Plan of care discussed with Dr. Becker. Home Meds Reported Medications Simvastatin* (Zocor*) 40 Mg Tablet, 40 MG PO QHS, #30 TAB 05/13/18 Risperidone* (Risperdal*) 1 Mg Tablet, 0.5 MG PO DAILY, TAB 05/13/18 Memantine* (Namenda*) 10 Mg Tablet, 10 MG PO DAILY, #30 TAB 05/13/18 Benazepril Hcl* (Lotensin*) 40 Mg Tablet, 40 MG PO DAILY, #30 TAB HOLD FOR SBP<110 OR DC<60 05/13/18 Escitalopram Oxalate* (Lexapro*) 5 Mg Tablet, 5 MG PO Q OTHER DAY, #30 TAB 05/13/18 Tamsulosin Hcl* (Flomax*) 0.4 Mg Cap.er.24h, 0.4 MG PO HS, CAP 05/13/18 Carvedilol* (Coreg*) 6.25 Mg Tablet, 6.25 MG PO BID, #60 TAB HOLD FOR SBP<110 OR DC<60 05/13/18 Docusate Sodium* (Colace*) 250 Mg Capsule, 250 MG PO TID, #60 CAP 05/13/18 Cholecalciferol* (Vitamin D*) 400 Unit Tablet, 400 UNIT PO DAILY, TAB 05/13/18 Dutasteride* (Avodart*) 0.5 Mg Capsule, 0.5 MG PO DAILY, CAP 05/13/18 Donepezil* (Aricept*) 10 Mg Tablet, 10 MG PO DAILY, TAB 05/13/18 Acetaminophen* (Acetaminophen*) 650 Mg Tablet, 650 MG PO Q6H PRN for PAIN LEVEL 1-01/20, #30 TAB 05/13/18 Discontinued Reported Medications Icosapent Ethyl (VASCEPA) 1 Gm Capsule, 1 GM PO QHS, CAP 05/13/18 Primary Care Provider Cruz Becker MD Time spent on discharge: > 30 minutes Pending Labs Laboratory Tests Test 06/01/18 06:50 White Blood Count 3.1 10^3/ul (4.8-10.8) Red Blood Count 4.50 10^6/ul (4.70-6.10) Hemoglobin 11.9 g/dl (14.0-18.0) Hematocrit 37.7 % (42.0-52.0) Mean Corpuscular Volume 83.8 fl (82.0-101.0) Mean Corpuscular Hemoglobin 26.4 pg (29.0-33.0) Mean Corpuscular Hemoglobin Concent 31.6 g/dl (32.0-37.0) Red Cell Distribution Width 15.6 % (11.5-14.5) Platelet Count 81 10^3/UL (140-415) Mean Platelet Volume 11.5 fl (7.4-10.4) Immature Granulocytes % 1.000 % (0.001-0.429) Neutrophils % % (39.0-77.0) Segmented Neutrophils % (Manual) 48 % (39-77) Band Neutrophils % (Manual) 5 % (0-4) Lymphocytes % % (15.0-51.0) Lymphocytes % (Manual) 24 % (15-51) Reactive Lymphocytes % (Manual) 4 % (0-0) Monocytes % % (0.0-11.0) Monocytes % (Manual) 18 % (0-11) Eosinophils % % (0.0-7.0) Basophils % % (0.0-2.0) Metamyelocytes % (manual) 1 % (0-0) Nucleated Red Blood Cells % 0.0 /100WBC (0.0-0.0) Immature Granulocytes # 0.030 10^3/ul (0.0-0.031) Neutrophils # 10^3/ul (1.6-7.5) Neutrophils # (Manual) 1.5 10^3/ul (1.6-7.5) Band Neutrophils # 0.1 10^3/ul (0.0-0.6) Lymphocytes (Manual) 0.7 10^3/ul (0.8-2.9) Lymphocytes # 10^3/ul (0.8-2.9) Reactive Lymphocytes # 0.1 10^3/ul (0.0-0.0) Monocytes # 10^3/ul (0.3-0.9) Monocytes # (Manual) 0.5 10^3/ul (0.3-0.9) Eosinophils # 10^3/ul (0.0-0.5) Basophils # 10^3/ul (0.0-0.1) Metamyelocytes # 0.0 10^3/ul (0.0-0.0) Nucleated Red Blood Cells # 10^3/ul (0.0-0.0) Platelet Estimate DECREASED Giant Platelets 1 % (0-0) Polychromasia 1+ (0-0) Hypochromasia 1+ (0-0) Poikilocytosis 1+ (0-0) Anisocytosis 2+ (0-0) Microcytosis 1+ (0-0) Ovalocytes 1+ (0-0) Sodium Level 141 mmol/L (135-144) Potassium Level 4.0 mmol/L (3.5-5.1) Chloride Level 100 mmol/L (97-110) Carbon Dioxide Level 28 mmol/L (21-31) Anion Gap 13 (5-13) Blood Urea Nitrogen 10 mg/dl (7-20) Creatinine 0.72 mg/dl (0.61-1.24) Est Glomerular Filtrat Rate mL/min mL/min (>60) Glucose Level 98 mg/dl (70-220) Calcium Level 8.9 mg/dl (8.4-10.2) JOYCE CHOW Jun 01, 2018 18:06
[2018-06-01 20:00] VITALS: BP 115/73; PULSE 66; RESP 17
== END 2018-06-01 20:30 | DRG 803 ==
LOC: E/R 18:46 → 5EC 20:10 → INTOOBSV 20:10 → OBSVTOIN 05-15 12:37
PROVIDERS: ADMIT Internal Medicine; ATTEND Internal Medicine
PROC: 0QB33ZX Excision of Left Pelvic Bone, Percutaneous Approach, Diagnostic (ICD-10-PCS; principal; 2018-05-20)
PROC: 07DR3ZX Extraction of Iliac Bone Marrow, Percutaneous Approach, Diagnostic (ICD-10-PCS; 2018-05-20)
DX: D61.818 Other pancytopenia (principal); N39.0 Urinary tract infection, site not specified; E87.1 Hypo-osmolality and hyponatremia; E86.0 Dehydration; I10 Essential (primary) hypertension; N40.0 Benign prostatic hyperplasia without lower urinary tract symptoms; F29 Unspecified psychosis not due to a substance or known physiological condition; J44.9 Chronic obstructive pulmonary disease, unspecified; M81.0 Age-related osteoporosis without current pathological fracture; F32.9 Major depressive disorder, single episode, unspecified; G30.9 Alzheimer's disease, unspecified; F02.80 Dementia in other diseases classified elsewhere, unspecified severity, without behavioral disturbance, psychotic disturbance, mood disturbance, and anxiety; K76.0 Fatty (change of) liver, not elsewhere classified; D53.9 Nutritional anemia, unspecified; I80.8 Phlebitis and thrombophlebitis of other sites; R91.8 Other nonspecific abnormal finding of lung field; I51.89 Other ill-defined heart diseases
CPT/HCPCS: 36415; 70450; 71045; 77012; 80048; 80053; 81001; 82607; 82746; 83036; 83090; 83615; 83690; 83921; 84155; 84165; 84484; 85025; 87081; 87086; 88305; 88311; 88313; 93005; 93306; 93971; 99217; G0378; J0692; J0696; J1650; J2001; J2916; J3010; J7040; J7042

== ENCOUNTER 2018-07-01 07:01 | Inpatient (IN) | payer MEDICARE, OTHER ==
[~2018-07-01] VITALS: Ht 160 cm; Wt 90.9 kg
[~2018-07-01 07:01] MED LIST changes: +ACET-2047 PO; -AZEL137S9 NASAL; +BENA40TA54 PO; -BENA40TA56 PO; +CARV6.25 PO; -CARV6.2579 PO; +ESCI5TAB PO; -ESCI5TAB10 PO; -ICOS1CAP PO; -OMEP20CA16 PO; +RISP-7 PO; -RISP1TAB3 PO; +TAMS-14 PO; -TAMS0.4C2 PO; -TRAM50TA2 PO
[2018-07-01 07:27] VITALS: Ht 160 cm; Wt 90.9 kg
[2018-07-01] MEDS ORDERED: ASPI81TA52 PO (08:52)
[2018-07-01] MEDS ORDERED: FER325 PO (08:53)
[2018-07-01] MEDS ORDERED: PANT40TA3 PO (08:54)
[2018-07-01] MEDS ORDERED: IOHEXOL 300MG/ML 150 ML BTL ONE (09:18)
[2018-07-01] MEDS ORDERED: SOD CHLORIDE 0.9% 100 ML ONE (09:18)
[2018-07-01] MEDS ORDERED: ACETAMINOPHEN 500 MG TAB PO STA (11:22)
[2018-07-01] MEDS ORDERED: SOD CHLORIDE 0.9% 1,000 ML IV SCH (11:23)
--- NOTE | 2018-07-01 11:26 | ERD ---
ER Documentation Chief Complaint Chief Complaint fr [place] hematuria and fever since 0230 given 650mg tylenol HPI This is a 82-year-old with severe dementia sent from alf for gross hematuria was reported to have a fever of 101 however is afebrile here. The patient is a very bad historian because he has severe dementia. It was noted that he had gross blood at the alf this morning. He is able to give us a urine sample here that showed gross hematuria ROS All systems reviewed and are negative except as per history of present illness. Medications Home Meds Reported Medications Pantoprazole* (Protonix*) 40 Mg Tablet.dr, 40 MG PO DAILY, TAB 07/01/18 Ferrous Sulfate* (Ferrous Sulfate*) 325 Mg Tabec, 325 MG PO DAILY, TAB 07/01/18 Aspirin (Low Dose Aspirin) 81 Mg Tablet.dr, 81 MG PO DAILY, #30 TAB 07/01/18 Simvastatin* (Zocor*) 40 Mg Tablet, 40 MG PO QHS, #30 TAB 05/13/18 Risperidone* (Risperdal*) 1 Mg Tablet, 0.5 MG PO DAILY, TAB 05/13/18 Memantine* (Namenda*) 10 Mg Tablet, 10 MG PO DAILY, #30 TAB 05/13/18 Benazepril Hcl* (Lotensin*) 40 Mg Tablet, 40 MG PO DAILY, #30 TAB HOLD FOR SBP<110 OR CA<60 05/13/18 Escitalopram Oxalate* (Lexapro*) 5 Mg Tablet, 5 MG PO Q OTHER DAY, #30 TAB 05/13/18 Tamsulosin Hcl* (Flomax*) 0.4 Mg Cap.er.24h, 0.4 MG PO HS, CAP 05/13/18 Carvedilol* (Coreg*) 6.25 Mg Tablet, 6.25 MG PO BID, #60 TAB HOLD FOR SBP<110 OR CA<60 05/13/18 Docusate Sodium* (Colace*) 250 Mg Capsule, 250 MG PO TID, #60 CAP 05/13/18 Cholecalciferol* (Vitamin D*) 400 Unit Tablet, 400 UNIT PO DAILY, TAB 05/13/18 Dutasteride* (Avodart*) 0.5 Mg Capsule, 0.5 MG PO DAILY, CAP 05/13/18 Donepezil* (Aricept*) 10 Mg Tablet, 10 MG PO DAILY, TAB 05/13/18 Acetaminophen* (Acetaminophen*) 650 Mg Tablet, 650 MG PO Q6H PRN for PAIN LEVEL 1-01/20, #30 TAB 05/13/18 Allergies Allergies: Coded Allergies: No Known Allergy (Unverified , 07/01/18) PMhx/Soc History of Surgery: No Anesthesia Reaction: No Hx Neurological Disorder: No Hx Respiratory Disorders: Yes (copd) Hx Cardiac Disorders: Yes (htn) Hx Psychiatric Problems: Yes (dementia, psychosis, depression) Hx Miscellaneous Medical Probl: No Hx Alcohol Use: No Hx Substance Use: No Hx Tobacco Use: No Smoking Status: Former smoker FmHx Unable to obtain due to mental status Physical Exam Vitals Vital Signs Date Temp Pulse Resp B/P (MAP) Pulse Ox O2 O2 Flow FiO2 Time Delivery Rate 07/01/18 100.2 86 17 119/78 99 Nasal 2.0 11:12 (92) Cannula 07/01/18 98.8 90 20 103/63 95 07:27 (76) Physical Exam Const: [Well-developed, well-nourished] Head: [Atraumatic, normocephalic] Eyes: [Normal Conjunctiva, PERRLA, EOMI, normal sclera, no nystagmus] ENT: [Normal External Ears, Nose and Mouth, moist mucus membranes.] Neck: [Full range of motion. No meningismus, no lymphadenopathy.] Resp: [Clear to auscultation bilaterally, no wheezing, rhonchi, rales] Cardio: [Regular rate and rhythm, no murmurs, S1 S2 present] Abd: [Soft, mild suprapubic pain, non distended. Normal bowel sounds, no guarding or rebound, no pulsitile abdominal masses or bruits] Skin: [No petechiae or rashes, no ecchymosis , no maculopapular rash] Back: [No midline or flank tenderness] Ext: [No cyanosis, or edema, FROM x 4, normal inspection, neurovascularly intact x 4] Neur: [Awake and alert, STR 5/5 x 4, sensation intact x 4, no focal findings, cerebellum intact] Psych: Severe dementia Result Diagram: 07/01/18 0800 07/01/18 0800 Results 24 hrs Laboratory Tests Test 07/01/18 08:00 07/01/18 09:10 White Blood Count 3.6 10^3/ul Red Blood Count 4.94 10^6/ul Hemoglobin 13.3 g/dl Hematocrit 42.1 % Mean Corpuscular Volume 85.2 fl Mean Corpuscular Hemoglobin 26.9 pg Mean Corpuscular Hemoglobin Concent 31.6 g/dl Red Cell Distribution Width 17.5 % Platelet Count 77 10^3/UL Mean Platelet Volume 11.3 fl Immature Granulocytes % 0.800 % Neutrophils % 38.9 % Lymphocytes % 28.9 % Monocytes % 31.1 % Eosinophils % 0.0 % Basophils % 0.3 % Nucleated Red Blood Cells % 0.0 /100WBC Immature Granulocytes # 0.030 10^3/ul Neutrophils # 1.4 10^3/ul Lymphocytes # 1.0 10^3/ul Monocytes # 1.1 10^3/ul Eosinophils # 0.0 10^3/ul Basophils # 0.0 10^3/ul Nucleated Red Blood Cells # 0.0 10^3/ul Prothrombin Time 15.0 Sec Prothrombin Time Ratio 1.2 INR International Normalized Ratio 1.17 Activated Partial Thromboplast Time 33.3 Sec Sodium Level 141 mmol/L Potassium Level 3.7 mmol/L Chloride Level 102 mmol/L Carbon Dioxide Level 30 mmol/L Anion Gap 9 Blood Urea Nitrogen 13 mg/dl Creatinine 0.91 mg/dl Est Glomerular Filtrat Rate mL/min mL/min Glucose Level 109 mg/dl Calcium Level 9.0 mg/dl Total Bilirubin 0.3 mg/dl Direct Bilirubin 0.00 mg/dl Indirect Bilirubin 0.3 mg/dl Aspartate Amino Transf (AST/SGOT) 80 IU/L Alanine Aminotransferase (ALT/SGPT) 28 IU/L Alkaline Phosphatase 38 IU/L Total Protein 7.6 g/dl Albumin 4.0 g/dl Globulin 3.60 g/dl Albumin/Globulin Ratio 1.11 Urine Color RED Urine Clarity BLOODY Urine Specific Reading 1.020 Urine Ketones NEGATIVE mg/dL Urine Nitrite NEGATIVE mg/dL Urine Bilirubin NEGATIVE mg/dL Urine Urobilinogen 0.2 E.U./dL mg/dL Urine Leukocyte Esterase NEGATIVE Miracle/ul Urine Microscopic RBC >200 /HPF Urine Microscopic WBC 2-5 /HPF Urine Bacteria MODERATE /HPF Urine Hemoglobin 3+ mg/dL Urine Glucose NEGATIVE mg/dL Urine Total Protein 2+ mg/dl Current Medications Medications Dose Sig/Jones Start Time Status Last (Trade) Ordered Route PRN Stop Time Admin Dose Reason Admin IV Flush 10 ml STK-MED 07/01/18 DC 07/01/18 (NS 10 ml) ONCE .ROUTE 09:18 09:48 07/01/18 09:19 Sodium 100 ml @ ud STK-MED 07/01/18 DC 07/01/18 Chloride ONCE .ROUTE 09:18 09:48 07/01/18 09:19 Iohexol 150 ml STK-MED 07/01/18 DC 07/01/18 (Omnipaque ONCE .ROUTE 09:18 09:48 300mg/ ml) 07/01/18 09:19 1,000 mg ONCE STAT 07/01/18 DC Acetaminophen PO 11:22 (Tylenol 07/01/18 11:23 Tab) Cefepime HCl 50 ml @ ONCE ONCE 07/01/18 100 mls/hr IVPB 11:30 07/01/18 11:59 Procedures/MDM Ordering MD: RAZ LEY DO Location: E/R Room/Bed: PROCEDURE: CT Abdomen and Pelvis with contrast. CLINICAL INDICATION: Painless hematuria TECHNIQUE: CT scan of the abdomen and pelvis with contrast was performed on a multi-detector high-resolution CT scanner. The patient was scanned following the uncomplicated intravenous administration of 100 cc of Omnipaque 300. Coronal and sagittal reformatted images were obtained from the axial source images. Images were reviewed on a high-resolution PACS workstation. The total exam CTDI equals 20 mGy and the total exam DLP equals 1348 mGy-cm. DICOM images are available. One or more of the following dose reduction techniques were utilized: 1.) Automated exposure control 2.) Adjustment of the mA +/- kV according to patient's size 3.) Use of iterative reconstruction technique. COMPARISON: None. FINDINGS: The lung bases are clear of any infiltrate or mass. There is linear fibrosis or plate-like atelectasis in the right lower lobe. No effusion is detected. There are coronary artery calcifications. The liver, spleen and pancreas appear normal. No gallstones are detected. There is no adrenal mass. Kidneys enhance symmetrically. No hydronephrosis, calculus or mass is present. Ureters are of normal course and caliber with no stone. Sarmiento catheter is present in the urinary bladder. There is high-density material within the lumen of the bladder compatible with hematuria. There is mass effect on the base of the bladder secondary to an enlarged prostate. Capsule does appear to be intact. Calcified plaque is seen in the wall of the aorta and iliac arteries with no aneurysm or dissection. 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 No retroperitoneal, pelvic or mesenteric adenopathy is seen. No bowel mass or obstruction is visualized. The appendix is normal. No phlegmon, ascites or pneumoperitoneum is identified. There is degenerative spondylosis in the lumbar and thoracic spine. IMPRESSION: No evidence of renal mass, urolithiasis or obstructive uropathy. Hyperdense material lumen urinary bladder consistent with clot. Mass effect base of bladder secondary to an enlarged prostate. Correlation with PSA is suggested. Right lower lobe scar versus plate-like atelectasis. Degenerative spondylosis thoracic and lumbar spine. RPTAT: HMJB .Lit Reveles MD, MD Date Time Electronically viewed and signed by .Lit Reveles MD, MD on 07/01/2018 09:51 .A/ CC: RAZ LEY DO [id number] Sarmiento catheter was placed a Daniel drip was started and now the urine is relatively clear. Spoke with urology Dr. Seth Bocanegra will see in consultation and scope for possible cancer. The patient has 100.2 temperature here will get blood cultures and give cefepime prophylactically. Admitted to Dr. Snell wash Departure Diagnosis: Primary Impression: Hematuria Hematuria type: unspecified type Qualified Codes: R31.9 - Hematuria, unspecified Condition: Stable RAZ LEY DO Jul 01, 2018 11:26
[2018-07-01] MEDS ORDERED: CEFEPIME 1GM/50 ML (PMX) 50 ML IVPB ONE (11:30)
[2018-07-01] MEDS ORDERED: ACETAMINOPHEN 325 MG TAB PO PRN (11:30)
[2018-07-01] MEDS ORDERED: ONDANSETRON 4 MG INJ IV PRN (11:30)
[2018-07-01 16:31] VITALS: BP 126/74; PULSE 95; RESP 18
[2018-07-01 19:45] VITALS: BP 135/77; PULSE 103; RESP 19
[2018-07-01] MEDS: ACETAMINOPHEN 325 MG TAB PO PRN (19:47)
[2018-07-01] MEDS: RISPERIDONE 0.25 MG TAB PO SCH (19:47)
--- NOTE | 2018-07-01 20:06 | CONS ---
Assessment/Plan Assessment/Plan Hospital Course (Demo Recall) 82-year-old male resident of a [place] [facility] facility has been having gross hematuria. The patient himself has dementia and is a very poor historian. The patient was admitted for workup of his hematuria and treatment. Presently he does have an indwelling Sarmiento catheter that is draining bloody urine. In the CT scan of the abdomen and pelvis did show a large prostate and possible blood clots inside the bladder. 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 And continue his tamsulosin and finasteride. Consultation Date/Type/Reason Admit Date/Time Jul 01, 2018 at 11:23 Date of Consultation: Jul 01, 2018 Type of Consult Urology Reason for Consultation Gross hematuria Requesting Provider: MARTA MCGUIRE MD Date/Time of Note DATE: 07/01/18 TIME: 19:58 Hx of Present Illness 82-year-old male resident of a [place] [facility] facility has been having gross hematuria. The patient himself has dementia and is a very poor historian. The patient was admitted for workup of his hematuria and treatment. Constitutional: other (Patient has dementia) Eyes: no complaints ENT: no complaints Respiratory: No shortness of breath Cardiovascular: No chest pain Gastrointestinal: No nausea, No vomiting Genitourinary: hematuria Musculoskeletal: no complaints Skin: no complaints Neurologic: confusion Endocrine: no complaints Psychological: confusion Immunologic: no complaints Past Medical History Medical History: high cholesterol, hypertension Home Meds Reported Medications Pantoprazole* (Protonix*) 40 Mg Tablet.dr, 40 MG PO DAILY, TAB 07/01/18 Ferrous Sulfate* (Ferrous Sulfate*) 325 Mg Tabec, 325 MG PO DAILY, TAB 07/01/18 Aspirin (Low Dose Aspirin) 81 Mg Tablet.dr, 81 MG PO DAILY, #30 TAB 07/01/18 Simvastatin* (Zocor*) 40 Mg Tablet, 40 MG PO QHS, #30 TAB 05/13/18 Risperidone* (Risperdal*) 1 Mg Tablet, 0.5 MG PO DAILY, TAB 05/13/18 Memantine* (Namenda*) 10 Mg Tablet, 10 MG PO DAILY, #30 TAB 05/13/18 Benazepril Hcl* (Lotensin*) 40 Mg Tablet, 40 MG PO DAILY, #30 TAB HOLD FOR SBP<110 OR IA<60 05/13/18 Escitalopram Oxalate* (Lexapro*) 5 Mg Tablet, 5 MG PO Q OTHER DAY, #30 TAB 05/13/18 Tamsulosin Hcl* (Flomax*) 0.4 Mg Cap.er.24h, 0.4 MG PO HS, CAP 05/13/18 Carvedilol* (Coreg*) 6.25 Mg Tablet, 6.25 MG PO BID, #60 TAB HOLD FOR SBP<110 OR IA<60 05/13/18 Docusate Sodium* (Colace*) 250 Mg Capsule, 250 MG PO TID, #60 CAP 05/13/18 Cholecalciferol* (Vitamin D*) 400 Unit Tablet, 400 UNIT PO DAILY, TAB 05/13/18 Dutasteride* (Avodart*) 0.5 Mg Capsule, 0.5 MG PO DAILY, CAP 05/13/18 Donepezil* (Aricept*) 10 Mg Tablet, 10 MG PO DAILY, TAB 05/13/18 Acetaminophen* (Acetaminophen*) 650 Mg Tablet, 650 MG PO Q6H PRN for PAIN LEVEL 1-10/10, #30 TAB 05/13/18 Medications Current Medications Cefepime HCl 50 ml @ 100 mls/hr Q12 IVPB ; Start 07/01/18 at 21:00 Acetaminophen (Tylenol Tab) 650 mg Q6H PRN PO PAIN LEVEL 1-10/10 Last administered on 07/01/18at 19:47; Admin Dose 650 MG; Start 07/01/18 at 17:00 Benazepril HCl (Lotensin) 40 mg DAILY PO ; Start 07/02/18 at 09:00 Carvedilol (Coreg) 6.25 mg BID PO ; Start 07/01/18 at 21:00 Cholecalciferol (Vitamin D) 400 units DAILY PO ; Start 07/02/18 at 09:00 Docusate Sodium (Colace) 250 mg TID PO ; Start 07/01/18 at 21:00 Donepezil HCl (Aricept) 10 mg DAILY PO ; Start 07/02/18 at 09:00 Dutasteride (Avodart) 0.5 mg DAILY PO ; Start 07/02/18 at 09:00 Escitalopram Oxalate (Lexapro) 5 mg QAM PO ; Start 07/02/18 at 09:00 Ferrous Sulfate (Ferrous Sulfate (Ec)) 325 mg DAILY PO ; Start 07/02/18 at 09:00 Memantine (Namenda) 10 mg DAILY PO ; Start 07/02/18 at 09:00 Pantoprazole (Protonix Tab) 40 mg DAILY@0600 PO ; Start 07/02/18 at 06:00 Risperidone (Risperdal) 0.5 mg DAILY PO Last administered on 07/01/18at 19:47; Admin Dose 0.5 MG; Start 07/01/18 at 18:30 Tamsulosin HCl (Flomax) 0.4 mg HS PO ; Start 07/01/18 at 21:00 Atorvastatin Calcium (Lipitor) 20 mg QHS PO ; Start 07/01/18 at 21:00 Allergies: Coded Allergies: No Known Allergy (Unverified , 07/01/18) Past Surgical History Past Surgical Hx: no surgical history Social History Alcohol Use: none Smoking Status: Former smoker Exam/Review of Systems Exam Vitals Vital Signs Date Temp Pulse Resp B/P (MAP) Pulse Ox O2 O2 Flow FiO2 Time Delivery Rate 07/01/18 98.4 103 19 135/77 95 Nasal 19:45 (96) Cannula 07/01/18 2.0 18:51 Psych: confusion Head: normocephalic Eyes: nl conjunctiva ENMT: nl external ears & nose Neck: supple, non-tender Respiratory: normal air movement; No wheezing Cardiovascular: No jugular venous distention (JVD) Gastrointestinal: soft Genitourinary - Male: other (He has a Sarmiento catheter that is draining bloody urine) Musculoskeletal: nl extremities to inspection Extremities: No calf tenderness Results Result Diagram: 07/01/18 0800 07/01/18 0800 Results 24hrs Laboratory Tests Test 07/01/18 08:00 07/01/18 09:10 White Blood Count 3.6 L Red Blood Count 4.94 Hemoglobin 13.3 L Hematocrit 42.1 Mean Corpuscular Volume 85.2 Mean Corpuscular Hemoglobin 26.9 L Mean Corpuscular Hemoglobin Concent 31.6 L Red Cell Distribution Width 17.5 H Platelet Count 77 L Mean Platelet Volume 11.3 H Immature Granulocytes % 0.800 H Neutrophils % 38.9 L Lymphocytes % 28.9 Monocytes % 31.1 H Eosinophils % 0.0 Basophils % 0.3 Nucleated Red Blood Cells % 0.0 Immature Granulocytes # 0.030 Neutrophils # 1.4 L Lymphocytes # 1.0 Monocytes # 1.1 H Eosinophils # 0.0 Basophils # 0.0 Nucleated Red Blood Cells # 0.0 Prothrombin Time 15.0 H Prothrombin Time Ratio 1.2 INR International Normalized Ratio 1.17 Activated Partial Thromboplast Time 33.3 Sodium Level 141 Potassium Level 3.7 Chloride Level 102 Carbon Dioxide Level 30 Anion Gap 9 Blood Urea Nitrogen 13 Creatinine 0.91 Est Glomerular Filtrat Rate mL/min Glucose Level 109 Calcium Level 9.0 Total Bilirubin 0.3 Direct Bilirubin 0.00 Indirect Bilirubin 0.3 Aspartate Amino Transf (AST/SGOT) 80 H Alanine Aminotransferase (ALT/SGPT) 28 Alkaline Phosphatase 38 L Total Protein 7.6 Albumin 4.0 Globulin 3.60 H Albumin/Globulin Ratio 1.11 Urine Color RED Urine Clarity BLOODY Urine Specific [place] 1.020 Urine Ketones NEGATIVE Urine Nitrite NEGATIVE Urine Bilirubin NEGATIVE Urine Urobilinogen 0.2 E.U./dL Urine Leukocyte Esterase NEGATIVE Urine Microscopic RBC >200 Urine Microscopic WBC 2-5 Urine Bacteria MODERATE Urine Hemoglobin 3+ H Urine Glucose NEGATIVE Urine Total Protein 2+ Imaging Imaging CT scan of the abdomen and pelvis: No evidence of renal mass, urolithiasis or obstructive uropathy. Hyperdense material lumen urinary bladder consistent with clot. Mass effect base of bladder secondary to an enlarged prostate. Correlation with PSA is suggested. Right lower lobe scar versus plate-like atelectasis. Degenerative spondylosis thoracic and lumbar spine. Medications Medication Current Medications Cefepime HCl 50 ml @ 100 mls/hr Q12 IVPB ; Start 07/01/18 at 21:00 Acetaminophen (Tylenol Tab) 650 mg Q6H PRN PO PAIN LEVEL 1-10/10 Last administered on 07/01/18at 19:47; Admin Dose 650 MG; Start 07/01/18 at 17:00 Benazepril HCl (Lotensin) 40 mg DAILY PO ; Start 07/02/18 at 09:00 Carvedilol (Coreg) 6.25 mg BID PO ; Start 07/01/18 at 21:00 Cholecalciferol (Vitamin D) 400 units DAILY PO ; Start 07/02/18 at 09:00 Docusate Sodium (Colace) 250 mg TID PO ; Start 07/01/18 at 21:00 Donepezil HCl (Aricept) 10 mg DAILY PO ; Start 07/02/18 at 09:00 Dutasteride (Avodart) 0.5 mg DAILY PO ; Start 07/02/18 at 09:00 Escitalopram Oxalate (Lexapro) 5 mg QAM PO ; Start 07/02/18 at 09:00 Ferrous Sulfate (Ferrous Sulfate (Ec)) 325 mg DAILY PO ; Start 07/02/18 at 09:00 Memantine (Namenda) 10 mg DAILY PO ; Start 07/02/18 at 09:00 Pantoprazole (Protonix Tab) 40 mg DAILY@0600 PO ; Start 07/02/18 at 06:00 Risperidone (Risperdal) 0.5 mg DAILY PO Last administered on 07/01/18at 19:47; Admin Dose 0.5 MG; Start 07/01/18 at 18:30 Tamsulosin HCl (Flomax) 0.4 mg HS PO ; Start 07/01/18 at 21:00 Atorvastatin Calcium (Lipitor) 20 mg QHS PO ; Start 07/01/18 at 21:00 SUKHWINDER SIFUENTES MD Jul 01, 2018 20:06
[2018-07-01] MEDS: TAMSULOSIN (SR) 0.4 MG CAP PO SCH (21:18)
[2018-07-01] MEDS: ATORVASTATIN 20 MG TAB PO SCH (21:19)
[2018-07-01] MEDS: CEFEPIME 1GM/50 ML (PMX) 50 ML IVPB SCH (21:19)
[2018-07-01] MEDS: DOCUSATE SODIUM 250 MG CAP PO SCH (21:19)
[2018-07-02 00:07] VITALS: BP 100/56; PULSE 85; RESP 18
[2018-07-02 04:21] VITALS: BP 103/61; PULSE 97; RESP 19
[2018-07-02] MEDS: PANTOPRAZOLE (EC) 40 MG TAB PO SCH (05:42)
[2018-07-02 07:27] VITALS: BP 105/65; PULSE 63; RESP 18
--- NOTE | 2018-07-02 07:29 | HP ---
DATE OF ADMISSION: 07/01/2018 CHIEF COMPLAINT: Hematuria and fever. HISTORY OF PRESENT ILLNESS: The patient is an 82-year-old gentleman well known to me from previous several admissions. The patient has history of hypertension, dyslipidemia, benign prostatic hypertrophy, dementia with behavior disturbance, who was recently admitted at [facility] for pancytopenia. 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 Carrera at that time. Echocardiogram had revealed a normal ejection fraction. The patient also has history of benign prostatic hypertrophy. I received a call from nursing home [facility] regarding the patient being febrile as well as having gross hematuria. The patient was immediately transferred to [facility] ER. The patient did have a temperature of 100.2 in the ER; however, he was able to maintain his blood pressure and lactic acid level. The patient was given empiric IV antibiotic and is being admitted for further evaluation and management. I requested urine culture to be send from ER prior to giving antibiotics. The patient denies any chest pain or shortness of breath, remains awake and alert. Denies any headache. No history of abdominal pain. No history of leg edema. No history of leg pain. No history of focal weakness. No history of any acute skin rash or any acute joint swelling. No history of any change in vision. No history of cough or sore throat. No history of focal weakness. REVIEW OF SYSTEMS: A total of 12 systems were reviewed and all pertinent positive and negative findings have been described in HPI. The rest of the review of systems are unremarkable. The patient does have memory impairment, but is awake, alert, and follows simple commands. PAST MEDICAL HISTORY: As stated above. ALLERGIES: NO KNOWN DRUG ALLERGIES. FAMILY HISTORY: Negative for coronary artery disease. SOCIAL HISTORY: Ex-smoker. No history of alcohol abuse. PAST SURGICAL HISTORY: Negative. PHYSICAL EXAMINATION: GENERAL: The patient is awake, alert, fairly oriented. VITAL SIGNS: In the ER, temperature 100.2, pulse 80, respirations 17, blood pressure 119/78, O2 saturation 99% on 2 liters nasal cannula. HEENT: Atraumatic, normocephalic head. Conjunctivae are normal. Pupils round, react to light. Nose and ears normal externally. Oropharynx negative. NECK: Supple. No mass. No thyromegaly. CHEST: Fairly clear. No use of accessory muscles. CARDIOVASCULAR: The patient is in sinus rhythm. S1, S2 normal. No murmur. ABDOMEN: Soft, nondistended, nontender. Bowel sounds plus. EXTREMITIES: No leg edema. NEUROLOGIC: The patient is awake, alert, follows simple commands. VASCULAR: Pedal pulses palpable. SKIN: Without acute rash. LABORATORY DATA: Done this morning, WBC 3.6, hemoglobin 13.3, platelet 77. Sodium 141, potassium 3.7, BUN 13, creatinine 0.9, glucose 109, AST 80, ALT 28, alkaline phosphatase 38. Albumin 4. DIAGNOSTIC DATA: CT of the abdomen and pelvis did not reveal any renal mass, urolithiasis or obstructive uropathy. Hyperdense material was found in the lumen of the bladder consistent with clot. The patient also was incidentally noted to have degenerative spondylosis thoracic and lumbar spine. The patient is being admitted for this regimen. IMPRESSION: 1. Hematuria with fever, possibly due to acute cystitis. The patient will be empirically started on IV cefepime. The patient will have urine for culture, urine cytology. 2. Benign prostatic hypertrophy. Will have a PSA level. The patient will remain on Flomax and ____. 3. Hypertension. Continue Lotensin. 4. Benign prostatic hypertrophy. Continue proscar and Flomax. 5. Hypertension. Blood pressure is reasonably controlled with carvedilol and Lotensin. 6. Dementia with behavioral disturbance. Currently stable with the current dose of Risperdal. 7. Depression. Continue Lexapro. 8. For memory, the patient also remains on Namenda. Plan of care was discussed with nursing staff. The patient will be seen by Dr. Dolan from urology standpoint. Further recommendation will depend on patient's hospital course. Dictated By: MARTA ESCOBAR/BIANCA Conf#: [id number] DID#: [id number] HEIDE
[2018-07-02] MEDS: DOCUSATE SODIUM 250 MG CAP PO SCH ×3 (09:00→21:34)
[2018-07-02] MEDS: DUTASTERIDE 0.5 MG CAP PO SCH (09:44)
[2018-07-02] MEDS: ESCITALOPRAM 10 MG TAB PO SCH (09:44)
[2018-07-02] MEDS: MEMANTINE 10 MG TAB PO SCH (09:45)
[2018-07-02] MEDS: CHOLECALCIFEROL 400 UNITS TAB PO SCH (09:45)
[2018-07-02] MEDS: DONEPEZIL 10 MG TAB PO SCH (09:45)
[2018-07-02] MEDS: FERROUS SULFATE (EC) 325 MG TAB PO SCH (09:45)
[2018-07-02] MEDS: RISPERIDONE 0.25 MG TAB PO SCH (09:45)
[2018-07-02] MEDS: BENAZEPRIL 40 MG TAB PO SCH (09:49)
[2018-07-02] MEDS: CEFEPIME 1GM/50 ML (PMX) 50 ML IVPB SCH ×2 (09:59→21:34)
[2018-07-02 11:04] VITALS: BP 107/64; PULSE 87; RESP 22
--- NOTE | 2018-07-02 12:21 | PN ---
Date/Time of Note Date/Time of Note DATE: 07/02/18 TIME: 12:20 Assessment/Plan VTE Prophylaxis Risk score (from Ns)>0 risk: 4 [place] [facility] SCD contraindicated: other Pharmacological prophylaxis: other Pharm contraindication: other Lines/Catheters [facility] Type ([facility] Saline Lock Urinary Cath still in place: Yes Reason Cath still needed: urinary retention Assessment/Plan Assessment/Plan - Hypokalemia- replace K , fu am BMP 1. Hematuria with fever, possibly due to acute cystitis. - cont IV cefepime; urine for culture, urine cytology- pending 2. Benign prostatic hypertrophy; PSA level 4.6 - cont Flomax - per urology 3. Hypertension. Continue Lotensin. 4. Hypertension. Blood pressure is reasonably controlled with carvedilol and Lotensin. 5. Dementia with behavioral disturbance. Currently stable with the current dose of Risperdal. 6. Depression. Continue Lexapro. 7. For memory, the patient also remains on Namenda. Further recommendation will depend on patient's hospital course.Plan of care was discussed with Dr Becker/ nursing staff Result Diagram: 07/02/18 0541 07/02/18 0541 Results 24hrs Laboratory Tests Test 07/02/18 05:41 07/02/18 06:54 White Blood Count 3.5 L Red Blood Count 4.58 L Hemoglobin 12.4 L Hematocrit 38.2 L Mean Corpuscular Volume 83.4 Mean Corpuscular Hemoglobin 27.1 L Mean Corpuscular Hemoglobin Concent 32.5 Red Cell Distribution Width 17.2 H Platelet Count 78 L Mean Platelet Volume 11.4 H Immature Granulocytes % 0.600 H Neutrophils % 49.0 Lymphocytes % 23.5 Monocytes % 26.9 H Eosinophils % 0.0 Basophils % 0.0 Nucleated Red Blood Cells % 0.0 Immature Granulocytes # 0.020 Neutrophils # 1.7 Lymphocytes # 0.8 Monocytes # 0.9 Eosinophils # 0.0 Basophils # 0.0 Nucleated Red Blood Cells # 0.0 Sodium Level 138 Potassium Level 3.4 L Chloride Level 98 Carbon Dioxide Level 27 Anion Gap 13 Blood Urea Nitrogen 15 Creatinine 0.67 Est Glomerular Filtrat Rate mL/min Glucose Level 114 Calcium Level 8.2 L Lab Scanned Report REFERENCE LAB Subjective 24 Hr Interval Summary Eyes: no complaints ENT: no complaints Respiratory: no complaints Cardiovascular: no complaints Gastrointestinal: no complaints Genitourinary: no complaints Musculoskeletal: no complaints Skin: no complaints Neurologic: no complaints Psychological: nl mood/affect, confusion Exam/Review of Systems Exam Vitals Vital Signs Date Temp Pulse Resp B/P (MAP) Pulse Ox O2 O2 Flow FiO2 Time Delivery Rate 07/02/18 98.0 87 22 107/64 96 Nasal 11:04 (78) Cannula 07/02/18 2.0 10:03 Intake and Output 07/01/18 07/01/18 07/02/18 1515:00 23:00 07:00 IntakeIntake Total 6000 ml 400 ml OutputOutput Total 6000 ml 550 ml BalanceBalance 0 ml -150 ml Constitutional: alert, oriented, well developed Psych: nl mood/affect Head: normocephalic Eyes: nl lids, nl sclera ENMT: nl external ears & nose Neck: non-tender Respiratory: clear to auscultation Cardiovascular: nl pulses, other (S1S2) Gastrointestinal: soft, non-tender Musculoskeletal: nl extremities to inspection Extremities: normal pulses Neurological: nl speech, other (alert/responsive) Skin: nl turgor Lymph: nontender Results Results 24hrs Laboratory Tests Test 07/02/18 05:41 07/02/18 06:54 White Blood Count 3.5 L Red Blood Count 4.58 L Hemoglobin 12.4 L Hematocrit 38.2 L Mean Corpuscular Volume 83.4 Mean Corpuscular Hemoglobin 27.1 L Mean Corpuscular Hemoglobin Concent 32.5 Red Cell Distribution Width 17.2 H Platelet Count 78 L Mean Platelet Volume 11.4 H Immature Granulocytes % 0.600 H Neutrophils % 49.0 Lymphocytes % 23.5 Monocytes % 26.9 H Eosinophils % 0.0 Basophils % 0.0 Nucleated Red Blood Cells % 0.0 Immature Granulocytes # 0.020 Neutrophils # 1.7 Lymphocytes # 0.8 Monocytes # 0.9 Eosinophils # 0.0 Basophils # 0.0 Nucleated Red Blood Cells # 0.0 Sodium Level 138 Potassium Level 3.4 L Chloride Level 98 Carbon Dioxide Level 27 Anion Gap 13 Blood Urea Nitrogen 15 Creatinine 0.67 Est Glomerular Filtrat Rate mL/min Glucose Level 114 Calcium Level 8.2 L Lab Scanned Report REFERENCE LAB Medications Medication Current Medications Cefepime HCl 50 ml @ 100 mls/hr Q12 IVPB Last administered on 07/02/18 09:59; Admin Dose 100 MLS/HR; Start 07/01/18 at 21:00 Acetaminophen (Tylenol Tab) 650 mg Q6H PRN PO PAIN LEVEL 1-10 Last administered on 07/01/18 19:47; Admin Dose 650 MG; Start 07/01/18 at 17:00 Benazepril HCl (Lotensin) 40 mg DAILY PO Last administered on 07/02/18 09:49; Admin Dose 40 MG; Start 07/02/18 at 09:00 Carvedilol (Coreg) 6.25 mg BID PO Last administered on 07/02/18 09:49; Admin Dose 6.25 MG; Start 07/01/18 at 21:00 Cholecalciferol (Vitamin D) 400 units DAILY PO Last administered on 07/02/18 09:45; Admin Dose 400 UNITS; Start 07/02/18 at 09:00 Docusate Sodium (Colace) 250 mg TID PO Last administered on 07/01/18 21:19; Admin Dose 250 MG; Start 07/01/18 at 21:00 Donepezil HCl (Aricept) 10 mg DAILY PO Last administered on 07/02/18 09:45; Admin Dose 10 MG; Start 07/02/18 at 09:00 Dutasteride (Avodart) 0.5 mg DAILY PO Last administered on 07/02/18 09:44; Admin Dose 0.5 MG; Start 07/02/18 at 09:00 Escitalopram Oxalate (Lexapro) 5 mg QAM PO Last administered on 07/02/18 09:44; Admin Dose 5 MG; Start 07/02/18 at 09:00 Ferrous Sulfate (Ferrous Sulfate (Ec)) 325 mg DAILY PO Last administered on 07/02/18 09:45; Admin Dose 325 MG; Start 07/02/18 at 09:00 Memantine (Namenda) 10 mg DAILY PO Last administered on 07/02/18 09:45; Admin Dose 10 MG; Start 07/02/18 at 09:00 Pantoprazole (Protonix Tab) 40 mg DAILY@0600 PO Last administered on 07/02/18 05:42; Admin Dose 40 MG; Start 07/02/18 at 06:00 Risperidone (Risperdal) 0.5 mg DAILY PO Last administered on 07/02/18at 09:45; Admin Dose 0.5 MG; Start 07/01/18 at 18:30 Tamsulosin HCl (Flomax) 0.4 mg HS PO Last administered on 07/01/18at 21:18; Admin Dose 0.4 MG; Start 07/01/18 at 21:00 Atorvastatin Calcium (Lipitor) 20 mg QHS PO Last administered on 07/01/18at 21:19; Admin Dose 20 MG; Start 07/01/18 at 21:00 FROYLAN ALVAREZ Jul 02, 2018 12:21
[2018-07-02] MEDS ORDERED: POTASSIUM CHLORIDE 20 MEQ POWDER FOR ORAL SOLN PO ONE (12:30)
[2018-07-02] MEDS: ACETAMINOPHEN 325 MG TAB PO PRN (12:44)
[2018-07-02 15:16] VITALS: BP 101/59; PULSE 88; RESP 21
[2018-07-02 20:00] VITALS: BP 107/58; PULSE 78; RESP 20
--- NOTE | 2018-07-02 21:32 | CONS ---
Consult Date/Type/Reason Admit Date/Time Jul 01, 2018 at 11:23 Initial Consult Date 07/01/18 Type of Consultation: Urology Reason for Consultation Gross hematuria Requesting Provider: MARTA MCGUIRE MD Date/Time of Note DATE: 07/02/18 TIME: 21:29 Subjective Patient is resting and is comfortable Objective Vitals Vital Signs Date Temp Pulse Resp B/P (MAP) Pulse Ox O2 O2 Flow FiO2 Time Delivery Rate 07/02/18 97.8 78 20 107/58 96 Nasal 20:00 (74) Cannula 07/02/18 2.0 10:03 Intake and Output 07/01/18 07/01/18 07/02/18 1515:00 23:00 07:00 IntakeIntake Total 6000 ml 400 ml OutputOutput Total 6000 ml 550 ml BalanceBalance 0 ml -150 ml Exam The Sarmiento catheter is draining blood-tinged urine. Occasional blood clot Results/Medications Result Diagram: 07/02/18 0541 07/02/18 0541 Results 24 hrs Laboratory Tests Test 07/02/18 05:41 07/02/18 06:54 White Blood Count 3.5 L Red Blood Count 4.58 L Hemoglobin 12.4 L Hematocrit 38.2 L Mean Corpuscular Volume 83.4 Mean Corpuscular Hemoglobin 27.1 L Mean Corpuscular Hemoglobin Concent 32.5 Red Cell Distribution Width 17.2 H Platelet Count 78 L Mean Platelet Volume 11.4 H Immature Granulocytes % 0.600 H Neutrophils % 49.0 Lymphocytes % 23.5 Monocytes % 26.9 H Eosinophils % 0.0 Basophils % 0.0 Nucleated Red Blood Cells % 0.0 Immature Granulocytes # 0.020 Neutrophils # 1.7 Lymphocytes # 0.8 Monocytes # 0.9 Eosinophils # 0.0 Basophils # 0.0 Nucleated Red Blood Cells # 0.0 Sodium Level 138 Potassium Level 3.4 L Chloride Level 98 Carbon Dioxide Level 27 Anion Gap 13 Blood Urea Nitrogen 15 Creatinine 0.67 Est Glomerular Filtrat Rate mL/min Glucose Level 114 Calcium Level 8.2 L Lab Scanned Report REFERENCE LAB Home Meds Reported Medications Pantoprazole* (Protonix*) 40 Mg Tablet.dr, 40 MG PO DAILY, TAB 07/01/18 Ferrous Sulfate* (Ferrous Sulfate*) 325 Mg Tabec, 325 MG PO DAILY, TAB 07/01/18 Aspirin (Low Dose Aspirin) 81 Mg Tablet.dr, 81 MG PO DAILY, #30 TAB 07/01/18 Simvastatin* (Zocor*) 40 Mg Tablet, 40 MG PO QHS, #30 TAB 05/13/18 Risperidone* (Risperdal*) 1 Mg Tablet, 0.5 MG PO DAILY, TAB 05/13/18 Memantine* (Namenda*) 10 Mg Tablet, 10 MG PO DAILY, #30 TAB 05/13/18 Benazepril Hcl* (Lotensin*) 40 Mg Tablet, 40 MG PO DAILY, #30 TAB HOLD FOR SBP<110 OR MO<60 05/13/18 Escitalopram Oxalate* (Lexapro*) 5 Mg Tablet, 5 MG PO Q OTHER DAY, #30 TAB 05/13/18 Tamsulosin Hcl* (Flomax*) 0.4 Mg Cap.er.24h, 0.4 MG PO HS, CAP 05/13/18 Carvedilol* (Coreg*) 6.25 Mg Tablet, 6.25 MG PO BID, #60 TAB HOLD FOR SBP<110 OR MO<60 05/13/18 Docusate Sodium* (Colace*) 250 Mg Capsule, 250 MG PO TID, #60 CAP 05/13/18 Cholecalciferol* (Vitamin D*) 400 Unit Tablet, 400 UNIT PO DAILY, TAB 05/13/18 Dutasteride* (Avodart*) 0.5 Mg Capsule, 0.5 MG PO DAILY, CAP 05/13/18 Donepezil* (Aricept*) 10 Mg Tablet, 10 MG PO DAILY, TAB 05/13/18 Acetaminophen* (Acetaminophen*) 650 Mg Tablet, 650 MG PO Q6H PRN for PAIN LEVEL 1-01/20, #30 TAB 05/13/18 Medications Current Medications Cefepime HCl 50 ml @ 100 mls/hr Q12 IVPB Last administered on 07/02/18at 09:59; Admin Dose 100 MLS/HR; Start 07/01/18 at 21:00 Acetaminophen (Tylenol Tab) 650 mg Q6H PRN PO PAIN LEVEL 1-1010 Last administered on 07/02/18at 12:44; Admin Dose 650 MG; Start 07/01/18 at 17:00 Benazepril HCl (Lotensin) 40 mg DAILY PO Last administered on 3/22/19at 09:49; Admin Dose 40 MG; Start 07/02/18 at 09:00 Carvedilol (Coreg) 6.25 mg BID PO Last administered on 07/02/18 09:49; Admin Dose 6.25 MG; Start 07/01/18 at 21:00 Cholecalciferol (Vitamin D) 400 units DAILY PO Last administered on 07/02/18 09:45; Admin Dose 400 UNITS; Start 07/02/18 at 09:00 Docusate Sodium (Colace) 250 mg TID PO Last administered on 07/01/18 21:19; Admin Dose 250 MG; Start 07/01/18 at 21:00 Donepezil HCl (Aricept) 10 mg DAILY PO Last administered on 07/02/18 09:45; Admin Dose 10 MG; Start 07/02/18 at 09:00 Dutasteride (Avodart) 0.5 mg DAILY PO Last administered on 07/02/18 09:44; Admin Dose 0.5 MG; Start 07/02/18 at 09:00 Escitalopram Oxalate (Lexapro) 5 mg QAM PO Last administered on 07/02/18 09:44; Admin Dose 5 MG; Start 07/02/18 at 09:00 Ferrous Sulfate (Ferrous Sulfate (Ec)) 325 mg DAILY PO Last administered on 07/02/18 09:45; Admin Dose 325 MG; Start 07/02/18 at 09:00 Memantine (Namenda) 10 mg DAILY PO Last administered on 07/02/18 09:45; Admin Dose 10 MG; Start 07/02/18 at 09:00 Pantoprazole (Protonix Tab) 40 mg DAILY@0600 PO Last administered on 07/02/18 05:42; Admin Dose 40 MG; Start 07/02/18 at 06:00 Risperidone (Risperdal) 0.5 mg DAILY PO Last administered on 07/02/18 09:45; Admin Dose 0.5 MG; Start 07/01/18 at 18:30 Tamsulosin HCl (Flomax) 0.4 mg HS PO Last administered on 07/01/18 21:18; Admin Dose 0.4 MG; Start 07/01/18 at 21:00 Atorvastatin Calcium (Lipitor) 20 mg QHS PO Last administered on 3/21/19at 21:19; Admin Dose 20 MG; Start 07/01/18 at 21:00 Assessment/Plan Hospital Course (Demo Recall) 82-year-old male resident of a [facility] facility has been having gross hematuria. The patient himself has dementia and is a very poor historian. The patient was admitted for workup of his hematuria and treatment. Presently he does have an indwelling Sarmiento catheter that is draining bloody urine. In the CT scan of the abdomen and pelvis did show a large prostate and possible blood clots inside the bladder. Plan: Urine for culture and sensitivity and that did grow gram-positive cocci, urine cytology, PSA came back 4.6. Intravenous antibiotic. And continue his tamsulosin and finasteride. Once the urine is clear we will discontinue the Sarmiento catheter and see if he is able to void on his own. SUKHWINDER SIFUENTES MD Jul 02, 2018 21:31
[2018-07-02] MEDS: ATORVASTATIN 20 MG TAB PO SCH (21:34)
[2018-07-02] MEDS: TAMSULOSIN (SR) 0.4 MG CAP PO SCH (21:34)
[2018-07-03 00:37] VITALS: BP 112/64; PULSE 69; RESP 19
[2018-07-03 03:30] VITALS: BP 117/56; PULSE 72; RESP 16
[2018-07-03] MEDS: PANTOPRAZOLE (EC) 40 MG TAB PO SCH (05:12)
[2018-07-03 08:01] VITALS: BP 120/69; PULSE 75; RESP 18
[2018-07-03] MEDS: BENAZEPRIL 40 MG TAB PO SCH (09:04)
[2018-07-03] MEDS: DOCUSATE SODIUM 250 MG CAP PO SCH ×3 (09:04→12:18)
[2018-07-03] MEDS: FERROUS SULFATE (EC) 325 MG TAB PO SCH (09:04)
[2018-07-03] MEDS: CEFEPIME 1GM/50 ML (PMX) 50 ML IVPB SCH ×2 (09:05→20:29)
[2018-07-03] MEDS: MEMANTINE 10 MG TAB PO SCH (09:05)
[2018-07-03] MEDS: DONEPEZIL 10 MG TAB PO SCH (09:05)
[2018-07-03] MEDS: ESCITALOPRAM 10 MG TAB PO SCH (09:05)
[2018-07-03] MEDS: RISPERIDONE 0.25 MG TAB PO SCH (09:10)
[2018-07-03] MEDS: CHOLECALCIFEROL 400 UNITS TAB PO SCH (09:53)
[2018-07-03] MEDS: DUTASTERIDE 0.5 MG CAP PO SCH (09:53)
[2018-07-03] MEDS: ACETAMINOPHEN 325 MG TAB PO PRN ×2 (11:16→18:06)
--- NOTE | 2018-07-03 13:38 | PN ---
Date/Time of Note Date/Time of Note DATE: 07/03/18 TIME: 13:37 Assessment/Plan VTE Prophylaxis Risk score (from Ns)>0 risk: 5 SCD applied (from Ns): Yes Pharmacological prophylaxis: LMWH Lines/Catheters IV Catheter Type (from Nrsg): Saline Lock Urinary Cath still in place: Yes Reason Cath still needed: skin wounds contaminated by urine Assessment/Plan Hospital Course 1. Hematuria with fever, possibly due to acute cystitis. The patient will be empirically started on IV cefepime. The patient will have urine for culture, urine cytology. 2. Benign prostatic hypertrophy. Will have a PSA level. The patient will remain on Flomax and ____. 3. Hypertension. Continue Lotensin. 4. Benign prostatic hypertrophy. Continue Flomax. 5. Hypertension. Blood pressure is reasonably controlled with carvedilol and Lotensin. 6. Dementia with behavioral disturbance. Currently stable with the current dose of Risperdal. 7. Depression. Continue Lexapro. 8. For memory, the patient also remains on Namenda. Result Diagram: 07/02/18 0541 07/02/18 0541 Subjective 24 Hr Interval Summary Free Text/Dictation Patient looks comfortable, denies any pain Exam/Review of Systems Exam Vitals Vital Signs Date Temp Pulse Resp B/P (MAP) Pulse Ox O2 O2 Flow FiO2 Time Delivery Rate 07/03/18 Nasal 2.0 10:25 Cannula 07/03/18 97.9 75 18 120/69 97 08:01 (86) Intake and Output 07/02/18 07/02/18 07/03/18 1515:00 23:00 07:00 IntakeIntake Total 540 ml OutputOutput Total 600 ml 600 ml BalanceBalance -60 ml -600 ml Constitutional: well developed Head: normocephalic, atraumatic Neck: supple Respiratory: clear to auscultation Cardiovascular: regular rate and rhythm Gastrointestinal: soft, non-tender Extremities: normal pulses Medications Medication Current Medications Cefepime HCl 50 ml @ 100 mls/hr Q12 IVPB Last administered on 07/03/18at 09:05; Admin Dose 100 MLS/HR; Start 07/01/18 at 21:00 Acetaminophen (Tylenol Tab) 650 mg Q6H PRN PO PAIN LEVEL 1-10/10 Last administered on 07/03/18at 11:16; Admin Dose 650 MG; Start 07/01/18 at 17:00 Benazepril HCl (Lotensin) 40 mg DAILY PO Last administered on 07/03/18 09:04; Admin Dose 40 MG; Start 07/02/18 at 09:00 Carvedilol (Coreg) 6.25 mg BID PO Last administered on 07/03/18 09:04; Admin Dose 6.25 MG; Start 07/01/18 at 21:00 Cholecalciferol (Vitamin D) 400 units DAILY PO Last administered on 07/03/18 09:53; Admin Dose 400 UNITS; Start 07/02/18 at 09:00 Docusate Sodium (Colace) 250 mg TID PO Last administered on 07/02/18 21:34; Admin Dose 250 MG; Start 07/01/18 at 21:00 Donepezil HCl (Aricept) 10 mg DAILY PO Last administered on 07/03/18 09:05; Admin Dose 10 MG; Start 07/02/18 at 09:00 Dutasteride (Avodart) 0.5 mg DAILY PO Last administered on 07/03/18 09:53; Admin Dose 0.5 MG; Start 07/02/18 at 09:00 Escitalopram Oxalate (Lexapro) 5 mg QAM PO Last administered on 07/03/18 09:05; Admin Dose 5 MG; Start 07/02/18 at 09:00 Ferrous Sulfate (Ferrous Sulfate (Ec)) 325 mg DAILY PO Last administered on 07/03/18 09:04; Admin Dose 325 MG; Start 07/02/18 at 09:00 Memantine (Namenda) 10 mg DAILY PO Last administered on 07/03/18 09:05; Admin Dose 10 MG; Start 07/02/18 at 09:00 Pantoprazole (Protonix Tab) 40 mg DAILY@0600 PO Last administered on 07/03/18 05:12; Admin Dose 40 MG; Start 07/02/18 at 06:00 Risperidone (Risperdal) 0.5 mg DAILY PO Last administered on 07/03/18 09:10; Admin Dose 0.5 MG; Start 07/01/18 at 18:30 Tamsulosin HCl (Flomax) 0.4 mg HS PO Last administered on 3/22/19at 21:34; Admin Dose 0.4 MG; Start 07/01/18 at 21:00 Atorvastatin Calcium (Lipitor) 20 mg QHS PO Last administered on 07/02/18at 21:34; Admin Dose 20 MG; Start 07/01/18 at 21:00 GURJIT ANTUNEZ Jul 03, 2018 13:38
[2018-07-03 14:20] VITALS: BP 109/75; PULSE 78; RESP 19
--- NOTE | 2018-07-03 14:25 | CONS ---
Consult Date/Type/Reason Admit Date/Time Jul 01, 2018 at 11:23 Initial Consult Date 07/01/18 Type of Consultation: Urology Reason for Consultation Gross hematuria Requesting Provider: MARTA MCGUIRE MD Date/Time of Note DATE: 07/03/18 TIME: 14:22 Subjective The patient appears to be comfortable Objective Vitals Vital Signs Date Temp Pulse Resp B/P (MAP) Pulse Ox O2 O2 Flow FiO2 Time Delivery Rate 07/03/18 Nasal 2.0 10:25 Cannula 07/03/18 97.9 75 18 120/69 97 08:01 (86) Intake and Output 07/02/18 07/02/18 07/03/18 1515:00 23:00 07:00 IntakeIntake Total 540 ml OutputOutput Total 600 ml 600 ml BalanceBalance -60 ml -600 ml Exam Sarmiento catheter is now draining clear urine. There is no more gross hematuria. Results/Medications Result Diagram: 07/02/18 0541 07/02/18 0541 Home Meds Reported Medications Pantoprazole* (Protonix*) 40 Mg Tablet.dr, 40 MG PO DAILY, TAB 07/01/18 Ferrous Sulfate* (Ferrous Sulfate*) 325 Mg Tabec, 325 MG PO DAILY, TAB 07/01/18 Aspirin (Low Dose Aspirin) 81 Mg Tablet.dr, 81 MG PO DAILY, #30 TAB 07/01/18 Simvastatin* (Zocor*) 40 Mg Tablet, 40 MG PO QHS, #30 TAB 05/13/18 Risperidone* (Risperdal*) 1 Mg Tablet, 0.5 MG PO DAILY, TAB 05/13/18 Memantine* (Namenda*) 10 Mg Tablet, 10 MG PO DAILY, #30 TAB 05/13/18 Benazepril Hcl* (Lotensin*) 40 Mg Tablet, 40 MG PO DAILY, #30 TAB HOLD FOR SBP<110 OR LA<60 05/13/18 Escitalopram Oxalate* (Lexapro*) 5 Mg Tablet, 5 MG PO Q OTHER DAY, #30 TAB 05/13/18 Tamsulosin Hcl* (Flomax*) 0.4 Mg Cap.er.24h, 0.4 MG PO HS, CAP 05/13/18 Carvedilol* (Coreg*) 6.25 Mg Tablet, 6.25 MG PO BID, #60 TAB HOLD FOR SBP<110 OR LA<60 05/13/18 Docusate Sodium* (Colace*) 250 Mg Capsule, 250 MG PO TID, #60 CAP 05/13/18 Cholecalciferol* (Vitamin D*) 400 Unit Tablet, 400 UNIT PO DAILY, TAB 05/13/18 Dutasteride* (Avodart*) 0.5 Mg Capsule, 0.5 MG PO DAILY, CAP 05/13/18 Donepezil* (Aricept*) 10 Mg Tablet, 10 MG PO DAILY, TAB 05/13/18 Acetaminophen* (Acetaminophen*) 650 Mg Tablet, 650 MG PO Q6H PRN for PAIN LEVEL 1-10, #30 TAB 05/13/18 Medications Current Medications Cefepime HCl 50 ml @ 100 mls/hr Q12 IVPB Last administered on 07/03/18 09:05; Admin Dose 100 MLS/HR; Start 07/01/18 at 21:00 Acetaminophen (Tylenol Tab) 650 mg Q6H PRN PO PAIN LEVEL 1-01/20 Last administered on 07/03/18at 11:16; Admin Dose 650 MG; Start 07/01/18 at 17:00 Benazepril HCl (Lotensin) 40 mg DAILY PO Last administered on 07/03/18 09:04; Admin Dose 40 MG; Start 07/02/18 at 09:00 Carvedilol (Coreg) 6.25 mg BID PO Last administered on 07/03/18 09:04; Admin Dose 6.25 MG; Start 07/01/18 at 21:00 Cholecalciferol (Vitamin D) 400 units DAILY PO Last administered on 07/03/18 09:53; Admin Dose 400 UNITS; Start 07/02/18 at 09:00 Docusate Sodium (Colace) 250 mg TID PO Last administered on 07/02/18 21:34; Admin Dose 250 MG; Start 07/01/18 at 21:00 Donepezil HCl (Aricept) 10 mg DAILY PO Last administered on 07/03/18 09:05; Admin Dose 10 MG; Start 07/02/18 at 09:00 Dutasteride (Avodart) 0.5 mg DAILY PO Last administered on 07/03/18 09:53; Admin Dose 0.5 MG; Start 07/02/18 at 09:00 Escitalopram Oxalate (Lexapro) 5 mg QAM PO Last administered on 07/03/18 09:05; Admin Dose 5 MG; Start 07/02/18 at 09:00 Ferrous Sulfate (Ferrous Sulfate (Ec)) 325 mg DAILY PO Last administered on 07/03/18 09:04; Admin Dose 325 MG; Start 07/02/18 at 09:00 Memantine (Namenda) 10 mg DAILY PO Last administered on 07/03/18 09:05; Admin Dose 10 MG; Start 07/02/18 at 09:00 Pantoprazole (Protonix Tab) 40 mg DAILY@0600 PO Last administered on 07/03/18 05:12; Admin Dose 40 MG; Start 07/02/18 at 06:00 Risperidone (Risperdal) 0.5 mg DAILY PO Last administered on 07/03/18 09:10; Admin Dose 0.5 MG; Start 07/01/18 at 18:30 Tamsulosin HCl (Flomax) 0.4 mg HS PO Last administered on 07/02/18 21:34; Admi n Dose 0.4 MG; Start 07/01/18 at 21:00 Atorvastatin Calcium (Lipitor) 20 mg QHS PO Last administered on 07/02/18 21:34; Admin Dose 20 MG; Start 07/01/18 at 21:00 Assessment/Plan Hospital Course (Demo Recall) 82-year-old male resident of a assisted facility has been having gross hematuria. The patient himself has dementia and is a very poor historian. The patient was admitted for workup of his hematuria and treatment. Presently he does have an indwelling Sarmiento catheter that is draining clear urine. The CT scan of the abdomen and pelvis did show a large prostate and possible blood clots inside the bladder. Plan: Urine for culture and sensitivity and that did grow gram-positive cocci, urine cytology is pending, PSA came back 4.6. Intravenous antibiotic. And continue his tamsulosin and finasteride. Since the urine is now clear we will discontinue the Sarmiento catheter at 6 AM tomorrow and check his voiding after that. SUKHWINDER SIFUENTES MD Jul 03, 2018 14:25
[2018-07-03] MEDS: ATORVASTATIN 20 MG TAB PO SCH (20:29)
[2018-07-03] MEDS: TAMSULOSIN (SR) 0.4 MG CAP PO SCH (20:29)
[2018-07-03 20:49] VITALS: BP 125/65; PULSE 83; RESP 16
[2018-07-04 02:59] VITALS: BP 148/80; PULSE 79; RESP 18
[2018-07-04] MEDS: ACETAMINOPHEN 325 MG TAB PO PRN ×4 (03:37→23:53)
[2018-07-04] MEDS: PANTOPRAZOLE (EC) 40 MG TAB PO SCH (05:23)
[2018-07-04 08:33] VITALS: BP 116/60; PULSE 78; RESP 17
[2018-07-04] MEDS: DUTASTERIDE 0.5 MG CAP PO SCH (08:45)
[2018-07-04] MEDS: CEFEPIME 1GM/50 ML (PMX) 50 ML IVPB SCH ×2 (08:45→21:10)
[2018-07-04] MEDS: CHOLECALCIFEROL 400 UNITS TAB PO SCH (08:45)
[2018-07-04] MEDS: FERROUS SULFATE (EC) 325 MG TAB PO SCH (08:45)
[2018-07-04] MEDS: DONEPEZIL 10 MG TAB PO SCH (08:45)
[2018-07-04] MEDS: BENAZEPRIL 40 MG TAB PO SCH (08:45)
[2018-07-04] MEDS: MEMANTINE 10 MG TAB PO SCH (08:45)
[2018-07-04] MEDS: ESCITALOPRAM 10 MG TAB PO SCH (08:45)
[2018-07-04] MEDS: RISPERIDONE 0.25 MG TAB PO SCH (10:13)
--- NOTE | 2018-07-04 13:15 | PN ---
Date/Time of Note Date/Time of Note DATE: 07/04/18 TIME: 13:15 Assessment/Plan VTE Prophylaxis Risk score (from Ns)>0 risk: 7 SCD applied (from [facility] [place]): No SCD contraindicated: other Pharmacological prophylaxis: LMWH Lines/Catheters [facility]from [facility] Saline Lock Urinary Cath still in place: Yes Reason Cath still needed: skin wounds contaminated by urine Assessment/Plan Hospital Course 1. Hematuria with fever, possibly due to acute cystitis. The patient will be empirically started on IV cefepime. The patient will have urine for culture, urine cytology. 2. Benign prostatic hypertrophy. Will have a PSA level. The patient will remain on Flomax and ____. 3. Hypertension. Continue Lotensin. 4. Benign prostatic hypertrophy. Continue Flomax. 5. Hypertension. Blood pressure is reasonably controlled with carvedilol and Lotensin. 6. Dementia with behavioral disturbance. Currently stable with the current dose of Risperdal. 7. Depression. Continue Lexapro. 8. For memory, the patient also remains on Namenda. Result Diagram: 07/02/18 0541 07/02/18 0541 Subjective 24 Hr Interval Summary Free Text/Dictation Patient has no complaints Exam/Review of Systems Exam Vitals Vital Signs Date Temp Pulse Resp B/P (MAP) Pulse Ox O2 O2 Flow FiO2 Time Delivery Rate 07/04/18 Nasal 2.0 11:03 Cannula 07/04/18 98.7 78 17 116/60 94 08:33 (78) Intake and Output 07/03/18 07/03/18 07/04/18 1515:00 23:00 07:00 IntakeIntake Total 450 ml 850 ml 700 ml OutputOutput Total 800 ml 1200 ml 800 ml BalanceBalance -350 ml -350 ml -100 ml Constitutional: well developed Head: normocephalic, atraumatic Neck: supple Respiratory: clear to auscultation Cardiovascular: regular rate and rhythm Gastrointestinal: soft, non-tender Extremities: normal pulses Medications Medication Current Medications Cefepime HCl 50 ml @ 100 mls/hr Q12 IVPB Last administered on 07/04/18at 08:45; Admin Dose 100 MLS/HR; Start 07/01/18 at 21:00 Acetaminophen (Tylenol Tab) 650 mg Q6H PRN PO PAIN LEVEL 1-10/10 Last administered on 07/04/18 09:38; Admin Dose 650 MG; Start 07/01/18 at 17:00 Benazepril HCl (Lotensin) 40 mg DAILY PO Last administered on 07/04/18 08:45; Admin Dose 40 MG; Start 07/02/18 at 09:00 Carvedilol (Coreg) 6.25 mg BID PO Last administered on 07/04/18 08:46; Admin Dose 6.25 MG; Start 07/01/18 at 21:00 Cholecalciferol (Vitamin D) 400 units DAILY PO Last administered on 07/04/18 08:45; Admin Dose 400 UNITS; Start 07/02/18 at 09:00 Donepezil HCl (Aricept) 10 mg DAILY PO Last administered on 07/04/18 08:45; Admin Dose 10 MG; Start 07/02/18 at 09:00 Dutasteride (Avodart) 0.5 mg DAILY PO Last administered on 07/04/18 08:45; Admin Dose 0.5 MG; Start 07/02/18 at 09:00 Escitalopram Oxalate (Lexapro) 5 mg QAM PO Last administered on 07/04/18 08:45; Admin Dose 5 MG; Start 07/02/18 at 09:00 Ferrous Sulfate (Ferrous Sulfate (Ec)) 325 mg DAILY PO Last administered on 07/04/18 08:45; Admin Dose 325 MG; Start 07/02/18 at 09:00 Memantine (Namenda) 10 mg DAILY PO Last administered on 07/04/18 08:45; Admin Dose 10 MG; Start 07/02/18 at 09:00 Pantoprazole (Protonix Tab) 40 mg DAILY@0600 PO Last administered on 07/04/18 05:23; Admin Dose 40 MG; Start 07/02/18 at 06:00 Risperidone (Risperdal) 0.5 mg DAILY PO Last administered on 07/04/18 10:13; Admin Dose 0.5 MG; Start 07/01/18 at 18:30 Tamsulosin HCl (Flomax) 0.4 mg HS PO Last administered on 07/03/18 20:29; Admin Dose 0.4 MG; Start 07/01/18 at 21:00 Atorvastatin Calcium (Lipitor) 20 mg QHS PO Last administered on 07/03/18at 20:29; Admin Dose 20 MG; Start 07/01/18 at 21:00 GURJIT ANTUNEZ Jul 04, 2018 13:15
[2018-07-04 14:08] VITALS: BP 120/70; RESP 17
--- NOTE | 2018-07-04 16:18 | CONS ---
Consult Date/Type/Reason Admit Date/Time Jul 01, 2018 at 11:23 Initial Consult Date 07/01/18 Type of Consultation: Urology Reason for Consultation Gross hematuria Requesting Provider: MARTA MCGUIRE MD Date/Time of Note DATE: 07/04/18 TIME: 16:13 Subjective Patient is sitting up in the chair and appears to be comfortable. The Sarmiento catheter was supposed to be removed this morning but the nurse called me stating that the urine was bloody. I had her hand irrigate the catheter and she removed a small clot but after that the catheter drained much better. Objective Vitals Vital Signs Date Temp Pulse Resp B/P (MAP) Pulse Ox O2 O2 Flow FiO2 Time Delivery Rate 07/04/18 98.7 17 120/70 94 Room Air 14:08 (87) 07/04/18 2.0 11:03 07/04/18 78 08:33 Intake and Output 07/03/18 07/03/18 07/04/18 1515:00 23:00 07:00 IntakeIntake Total 450 ml 850 ml 700 ml OutputOutput Total 800 ml 1200 ml 800 ml BalanceBalance -350 ml -350 ml -100 ml Exam The Sarmiento catheter is draining clear urine. The urine in the tubing is clear but in the drainage bag it looks pinkish. Results/Medications Result Diagram: 07/02/18 0541 07/02/18 0541 Home Meds Reported Medications Pantoprazole* (Protonix*) 40 Mg Tablet.dr, 40 MG PO DAILY, TAB 07/01/18 Ferrous Sulfate* (Ferrous Sulfate*) 325 Mg Tabec, 325 MG PO DAILY, TAB 07/01/18 Aspirin (Low Dose Aspirin) 81 Mg Tablet.dr, 81 MG PO DAILY, #30 TAB 07/01/18 Simvastatin* (Zocor*) 40 Mg Tablet, 40 MG PO QHS, #30 TAB 05/13/18 Risperidone* (Risperdal*) 1 Mg Tablet, 0.5 MG PO DAILY, TAB 05/13/18 Memantine* (Namenda*) 10 Mg Tablet, 10 MG PO DAILY, #30 TAB 05/13/18 Benazepril Hcl* (Lotensin*) 40 Mg Tablet, 40 MG PO DAILY, #30 TAB HOLD FOR SBP<110 OR TX<60 05/13/18 Escitalopram Oxalate* (Lexapro*) 5 Mg Tablet, 5 MG PO Q OTHER DAY, #30 TAB 05/13/18 Tamsulosin Hcl* (Flomax*) 0.4 Mg Cap.er.24h, 0.4 MG PO HS, CAP 05/13/18 Carvedilol* (Coreg*) 6.25 Mg Tablet, 6.25 MG PO BID, #60 TAB HOLD FOR SBP<110 OR TX<60 05/13/18 Docusate Sodium* (Colace*) 250 Mg Capsule, 250 MG PO TID, #60 CAP 05/13/18 Cholecalciferol* (Vitamin D*) 400 Unit Tablet, 400 UNIT PO DAILY, TAB 05/13/18 Dutasteride* (Avodart*) 0.5 Mg Capsule, 0.5 MG PO DAILY, CAP 05/13/18 Donepezil* (Aricept*) 10 Mg Tablet, 10 MG PO DAILY, TAB 05/13/18 Acetaminophen* (Acetaminophen*) 650 Mg Tablet, 650 MG PO Q6H PRN for PAIN LEVEL 1-1010, #30 TAB 05/13/18 Medications Current Medications Cefepime HCl 50 ml @ 100 mls/hr Q12 IVPB Last administered on 07/04/18at 08:45; Admin Dose 100 MLS/HR; Start 07/01/18 at 21:00 Acetaminophen (Tylenol Tab) 650 mg Q6H PRN PO PAIN LEVEL 1-1010 Last administered on 07/04/18at 09:38; Admin Dose 650 MG; Start 07/01/18 at 17:00 Benazepril HCl (Lotensin) 40 mg DAILY PO Last administered on 07/04/18at 08:45; Admin Dose 40 MG; Start 07/02/18 at 09:00 Carvedilol (Coreg) 6.25 mg BID PO Last administered on 07/04/18at 08:46; Admin Dose 6.25 MG; Start 07/01/18 at 21:00 Cholecalciferol (Vitamin D) 400 units DAILY PO Last administered on 07/04/18at 08:45; Admin Dose 400 UNITS; Start 07/02/18 at 09:00 Donepezil HCl (Aricept) 10 mg DAILY PO Last administered on 07/04/18at 08:45; Admin Dose 10 MG; Start 07/02/18 at 09:00 Dutasteride (Avodart) 0.5 mg DAILY PO Last administered on 07/04/18 08:45; Admin Dose 0.5 MG; Start 07/02/18 at 09:00 Escitalopram Oxalate (Lexapro) 5 mg QAM PO Last administered on 07/04/18 08: 45; Admin Dose 5 MG; Start 07/02/18 at 09:00 Ferrous Sulfate (Ferrous Sulfate (Ec)) 325 mg DAILY PO Last administered on 07/04/18 08:45; Admin Dose 325 MG; Start 07/02/18 at 09:00 Memantine (Namenda) 10 mg DAILY PO Last administered on 07/04/18 08:45; Admin Dose 10 MG; Start 07/02/18 at 09:00 Pantoprazole (Protonix Tab) 40 mg DAILY@0600 PO Last administered on 07/04/18 05:23; Admin Dose 40 MG; Start 07/02/18 at 06:00 Risperidone (Risperdal) 0.5 mg DAILY PO Last administered on 07/04/18 10:13; Admin Dose 0.5 MG; Start 07/01/18 at 18:30 Tamsulosin HCl (Flomax) 0.4 mg HS PO Last administered on 07/03/18 20:29; Admin Dose 0.4 MG; Start 07/01/18 at 21:00 Atorvastatin Calcium (Lipitor) 20 mg QHS PO Last administered on 07/03/18 20:29; Admin Dose 20 MG; Start 07/01/18 at 21:00 Tramadol HCl (Ultram) 50 mg Q6H PRN PO MODERATE PAIN LEVEL 4-6; Start 07/04/18 at 15:30 Assessment/Plan Hospital Course (Demo Recall) 82-year-old male resident of a residential facility has been having gross hematuria. The patient himself has dementia and is a very poor historian. The patient was admitted for workup of his hematuria and treatment. Presently he does have an indwelling Sarmiento catheter that is draining clear urine. The CT scan of the abdomen and pelvis did show a large prostate and possible blood clots inside the bladder. We will keep the Sarmiento catheter again overnight and if the urine remains clear overnight we will discontinue the Sarmiento catheter and see if he is able to urinate. His PSA is 4.6 but that his age of 82 will just watch it especially that his prostate is very large. We will continue him on the tamsulosin and finasteride and if the urine remains clear we will take the Sarmiento catheter out and see if he is able to urinate on his own. The urine culture did grow gram-positive cocci. The urine cytology is still pending. Continue the antibiotic. SUKHWINDER SIFUENTES MD Jul 04, 2018 16:18
[2018-07-04 20:00] VITALS: BP 163/82; PULSE 81; RESP 18
[2018-07-04] MEDS: ATORVASTATIN 20 MG TAB PO SCH (21:10)
[2018-07-04] MEDS: TAMSULOSIN (SR) 0.4 MG CAP PO SCH (21:10)
[2018-07-04] MEDS: traMADol 50 MG TAB PO PRN (22:44)
[2018-07-05 02:00] VITALS: BP 130/73; PULSE 73; RESP 16
[2018-07-05] MEDS: PANTOPRAZOLE (EC) 40 MG TAB PO SCH (05:11)
[2018-07-05 08:00] VITALS: BP 135/81; PULSE 82; RESP 17
[2018-07-05] MEDS: FERROUS SULFATE (EC) 325 MG TAB PO SCH (09:51)
[2018-07-05] MEDS: BENAZEPRIL 40 MG TAB PO SCH (09:51)
[2018-07-05] MEDS: ESCITALOPRAM 10 MG TAB PO SCH (09:51)
[2018-07-05] MEDS: DONEPEZIL 10 MG TAB PO SCH (09:51)
[2018-07-05] MEDS: CHOLECALCIFEROL 400 UNITS TAB PO SCH (09:51)
[2018-07-05] MEDS: DUTASTERIDE 0.5 MG CAP PO SCH (09:52)
[2018-07-05] MEDS: MEMANTINE 10 MG TAB PO SCH (09:52)
[2018-07-05] MEDS: CEFEPIME 1GM/50 ML (PMX) 50 ML IVPB SCH ×2 (09:52→23:02)
[2018-07-05] MEDS: RISPERIDONE 0.25 MG TAB PO SCH (10:44)
[2018-07-05 14:16] VITALS: BP 117/64; PULSE 78; RESP 19
--- NOTE | 2018-07-05 18:48 | PN ---
Date/Time of Note Date/Time of Note DATE: 07/05/18 TIME: 18:29 Assessment/Plan VTE Prophylaxis Risk score (from Ns)>0 risk: 5 SCD applied (from Ns): Yes SCD contraindicated: low risk/ambulating Pharmacological prophylaxis: NA/contraindicated Pharm contraindication: bleeding Lines/Catheters IV Catheter Type (from Nrs): Saline Lock Urinary Cath still in place: Yes Reason Cath still needed: urinary retention Assessment/Plan Assessment/Plan - Hematuria, continue Sarmiento catheter . Dr. Dolan is following in urology c onsultation. Urine cytology negative for malignancy. - Benign prostatic hypertrophy. Continue Flomax and Proscar. - Hypertension. Continue Lotensin. - Dementia with behavioral disturbance. Currently stable with the current dose of Risperdal. - Depression. Continue Lexapro. Further recommendation will depend on patient's hospital course. Plan of care discussed with Dr. Becker. Result Diagram: 07/02/1854007/02/18540 Exam/Review of Systems Exam Vitals Vital Signs Date Temp Pulse Resp B/P (MAP) Pulse Ox O2 O2 Flow FiO2 Time Delivery Rate 07/05/18 97.9 78 19 117/64 100 Room Air 14:16 (81) 07/04/18 2.0 20:00 Intake and Output 07/04/18 07/04/18 07/05/18 1515:00 23:00 07:00 IntakeIntake Total 350 ml 50 ml OutputOutput Total 800 ml 2400 ml BalanceBalance -450 ml -2350 ml Constitutional: alert, oriented Neck: supple Respiratory: clear to auscultation Cardiovascular: nl pulses Gastrointestinal: soft, non-tender Extremities: normal pulses Medications Medication Current Medications Cefepime HCl 50 ml @ 100 mls/hr Q12 IVPB Last administered on 07/05/18at 09:52; Admin Dose 100 MLS/HR; Start 07/01/18 at 21:00 Acetaminophen (Tylenol Tab) 650 mg Q6H PRN PO PAIN LEVEL 1-10/10 Last ad ministered on 07/04/18at 23:53; Admin Dose 650 MG; Start 07/01/18 at 17:00 Benazepril HCl (Lotensin) 40 mg DAILY PO Last administered on 07/05/18at 09:51; Admin Dose 40 MG; Start 07/02/18 at 09:00 Carvedilol (Coreg) 6.25 mg BID PO Last administered on 07/05/18 09:51; Admin Dose 6.25 MG; Start 07/01/18 at 21:00 Cholecalciferol (Vitamin D) 400 units DAILY PO Last administered on 07/05/18 09:51; Admin Dose 400 UNITS; Start 07/02/18 at 09:00 Donepezil HCl (Aricept) 10 mg DAILY PO Last administered on 07/05/18 09:51; Admin Dose 10 MG; Start 07/02/18 at 09:00 Dutasteride (Avodart) 0.5 mg DAILY PO Last administered on 07/05/18 09:52; Admin Dose 0.5 MG; Start 07/02/18 at 09:00 Escitalopram Oxalate (Lexapro) 5 mg QAM PO Last administered on 07/05/18 09:51; Admin Dose 5 MG; Start 07/02/18 at 09:00 Ferrous Sulfate (Ferrous Sulfate (Ec)) 325 mg DAILY PO Last administered on 07/05/18 09:51; Admin Dose 325 MG; Start 07/02/18 at 09:00 Memantine (Namenda) 10 mg DAILY PO Last administered on 07/05/18 09:52; Admin Dose 10 MG; Start 07/02/18 at 09:00 Pantoprazole (Protonix Tab) 40 mg DAILY@0600 PO Last administered on 07/05/18 05:11; Admin Dose 40 MG; Start 07/02/18 at 06:00 Risperidone (Risperdal) 0.5 mg DAILY PO Last administered on 07/05/18 10:44; Admin Dose 0.5 MG; Start 07/01/18 at 18:30 Tamsulosin HCl (Flomax) 0.4 mg HS PO Last administered on 07/04/18 21:10; Admin Dose 0.4 MG; Start 07/01/18 at 21:00 Atorvastatin Calcium (Lipitor) 20 mg QHS PO Last administered on 07/04/18 21:10; Admin Dose 20 MG; Start 07/01/18 at 21:00 Tramadol HCl (Ultram) 50 mg Q6H PRN PO MODERATE PAIN LEVEL 4-6 Last administered on 07/04/18 22:44; Admin Dose 50 MG; Start 07/04/18 at 15:30 JOYCE CHOW Jul 05, 2018 18:40
[2018-07-05 20:00] VITALS: BP 128/63; PULSE 86; RESP 18
--- NOTE | 2018-07-05 20:39 | CONS ---
Consult Date/Type/Reason Admit Date/Time Jul 01, 2018 at 11:23 Initial Consult Date 07/01/18 Type of Consultation: Urology Reason for Consultation Hematuria Requesting Provider: MARTA MCGUIRE MD Date/Time of Note DATE: 07/05/18 TIME: 20:36 Subjective The patient appears to be very comfortable but he has been having hematuria on and off especially when he moves and when he has a bowel movement Objective Vitals Vital Signs Date Temp Pulse Resp B/P (MAP) Pulse Ox O2 O2 Flow FiO2 Time Delivery Rate 07/05/18 97.9 78 19 117/64 100 Room Air 14:16 (81) 07/04/18 2.0 20:00 Intake and Output 07/04/18 07/04/18 07/05/18 1515:00 23:00 07:00 IntakeIntake Total 350 ml 50 ml OutputOutput Total 800 ml 2400 ml BalanceBalance -450 ml -2350 ml Exam The patient is now resting in bed and the urine in the tubing is clear. Results/Medications Result Diagram: 07/02/18 0541 07/02/18 0541 Home Meds Reported Medications Pantoprazole* (Protonix*) 40 Mg Tablet.dr, 40 MG PO DAILY, TAB 07/01/18 Ferrous Sulfate* (Ferrous Sulfate*) 325 Mg Tabec, 325 MG PO DAILY, TAB 07/01/18 Aspirin (Low Dose Aspirin) 81 Mg Tablet.dr, 81 MG PO DAILY, #30 TAB 07/01/18 Simvastatin* (Zocor*) 40 Mg Tablet, 40 MG PO QHS, #30 TAB 05/13/18 Risperidone* (Risperdal*) 1 Mg Tablet, 0.5 MG PO DAILY, TAB 05/13/18 Memantine* (Namenda*) 10 Mg Tablet, 10 MG PO DAILY, #30 TAB 05/13/18 Benazepril Hcl* (Lotensin*) 40 Mg Tablet, 40 MG PO DAILY, #30 TAB HOLD FOR SBP<110 OR NE<60 05/13/18 Escitalopram Oxalate* (Lexapro*) 5 Mg Tablet, 5 MG PO Q OTHER DAY, #30 TAB 05/13/18 Tamsulosin Hcl* (Flomax*) 0.4 Mg Cap.er.24h, 0.4 MG PO HS, CAP 05/13/18 Carvedilol* (Coreg*) 6.25 Mg Tablet, 6.25 MG PO BID, #60 TAB HOLD FOR SBP<110 OR NE<60 05/13/18 Docusate Sodium* (Colace*) 250 Mg Capsule, 250 MG PO TID, #60 CAP 05/13/18 Cholecalciferol* (Vitamin D*) 400 Unit Tablet, 400 UNIT PO DAILY, TAB 05/13/18 Dutasteride* (Avodart*) 0.5 Mg Capsule, 0.5 MG PO DAILY, CAP 05/13/18 Donepezil* (Aricept*) 10 Mg Tablet, 10 MG PO DAILY, TAB 05/13/18 Acetaminophen* (Acetaminophen*) 650 Mg Tablet, 650 MG PO Q6H PRN for PAIN LEVEL 1-01/20, #30 TAB 05/13/18 Medications Current Medications Cefepime HCl 50 ml @ 100 mls/hr Q12 IVPB Last administered on 07/05/18 09:52; Admin Dose 100 MLS/HR; Start 07/01/18 at 21:00 Acetaminophen (Tylenol Tab) 650 mg Q6H PRN PO PAIN LEVEL 1-01/20 Last administered on 07/04/18at 23:53; Admin Dose 650 MG; Start 07/01/18 at 17:00 Benazepril HCl (Lotensin) 40 mg DAILY PO Last administered on 07/05/18 09:51; Admin Dose 40 MG; Start 07/02/18 at 09:00 Carvedilol (Coreg) 6.25 mg BID PO Last administered on 07/05/18 09:51; Admin Dose 6.25 MG; Start 07/01/18 at 21:00 Cholecalciferol (Vitamin D) 400 units DAILY PO Last administered on 07/05/18 09:51; Admin Dose 400 UNITS; Start 07/02/18 at 09:00 Donepezil HCl (Aricept) 10 mg DAILY PO Last administered on 07/05/18 09:51; Admin Dose 10 MG; Start 07/02/18 at 09:00 Dutasteride (Avodart) 0.5 mg DAILY PO Last administered on 07/05/18 09:52; Admin Dose 0.5 MG; Start 07/02/18 at 09:00 Escitalopram Oxalate (Lexapro) 5 mg QAM PO Last administered on 07/05/18 09:51; Admin Dose 5 MG; Start 07/02/18 at 09:00 Ferrous Sulfate (Ferrous Sulfate (Ec)) 325 mg DAILY PO Last administered on 07/05/18 09:51; Admin Dose 325 MG; Start 07/02/18 at 09:00 Memantine (Namenda) 10 mg DAILY PO Last administered on 07/05/18 09:52; Admin Dose 10 MG; Start 07/02/18 at 09:00 Pantoprazole (Protonix Tab) 40 mg DAILY@0600 PO Last administered on 07/05/18 05:11; Admin Dose 40 MG; Start 07/02/18 at 06:00 Risperidone (Risperdal) 0.5 mg DAILY PO Last administered on 07/05/18 10:44; Admin Dose 0.5 MG; Start 07/01/18 at 18:30 Tamsulosin HCl (Flomax) 0.4 mg HS PO Last administered on 07/04/18 21:10; Admin Dose 0.4 MG; Start 07/01/18 at 21:00 Atorvastatin Calcium (Lipitor) 20 mg QHS PO Last administered on 07/04/18 21:10; Admin Dose 20 MG; Start 07/01/18 at 21:00 Tramadol HCl (Ultram) 50 mg Q6H PRN PO MODERATE PAIN LEVEL 4-6 Last administered on 07/04/18 22:44; Admin Dose 50 MG; Start 07/04/18 at 15:30 Assessment/Plan Hospital Course (Demo Recall) 82-year-old male resident of a [facility] facility has been having gross hematuria. The patient himself has dementia and is a very poor historian. The patient was admitted for workup of his hematuria and treatment. Presently he does have an indwelling Sarmiento catheter that is draining clear urine and occasional blood-tinged urine. The CT scan of the abdomen and pelvis did show a large prostate and possible blood clots inside the bladder. Plan is to keep the Sarmiento catheter and if the urine remains clear overnight I will discontinue the Sarmiento catheter and see if he is able to urinate. His PSA is 4.6 but that his age of 82 we'll just watch it especially that his prostate is very large. We will continue him on the tamsulosin and finasteride at the antibiotic. The urine culture did grow gram-positive cocci. The urine cytology showed no malignant cells. SUKHWINDER SIFUENTES MD Jul 05, 2018 20:39
[2018-07-05] MEDS: ATORVASTATIN 20 MG TAB PO SCH (23:02)
[2018-07-05] MEDS: TAMSULOSIN (SR) 0.4 MG CAP PO SCH (23:03)
[2018-07-05] MEDS: traMADol 50 MG TAB PO PRN (23:06)
[2018-07-06 02:00] VITALS: BP 134/74; PULSE 88; RESP 17
[2018-07-06] MEDS: ACETAMINOPHEN 325 MG TAB PO PRN (02:11)
[2018-07-06] MEDS: PANTOPRAZOLE (EC) 40 MG TAB PO SCH (05:49)
[2018-07-06] MEDS: traMADol 50 MG TAB PO PRN (05:49)
[2018-07-06 08:00] VITALS: BP 178/86; PULSE 96; RESP 19
[2018-07-06] MEDS: CEFEPIME 1GM/50 ML (PMX) 50 ML IVPB SCH (10:01)
[2018-07-06] MEDS: DONEPEZIL 10 MG TAB PO SCH (10:02)
[2018-07-06] MEDS: DUTASTERIDE 0.5 MG CAP PO SCH (10:02)
[2018-07-06] MEDS: BENAZEPRIL 40 MG TAB PO SCH (10:03)
[2018-07-06] MEDS: MEMANTINE 10 MG TAB PO SCH (10:03)
[2018-07-06] MEDS: FERROUS SULFATE (EC) 325 MG TAB PO SCH (10:03)
[2018-07-06] MEDS: ESCITALOPRAM 10 MG TAB PO SCH (10:03)
[2018-07-06] MEDS: RISPERIDONE 0.25 MG TAB PO SCH (10:04)
[2018-07-06] MEDS: CHOLECALCIFEROL 400 UNITS TAB PO SCH (10:04)
[2018-07-06 14:00] VITALS: BP 133/74; PULSE 76; RESP 19
--- NOTE | 2018-07-06 17:27 | PN ---
Date/Time of Note Date/Time of Note DATE: 07/06/18 TIME: 17:23 Assessment/Plan VTE Prophylaxis Risk score (from Ns)>0 risk: 5 SCD applied (from [facility] [place]): Yes Pharmacological prophylaxis: NA/contraindicated Pharm contraindication: bleeding Lines/Catheters IV [facility] (from [facility] [place] [facility] Urinary Cath still in place: Yes Reason Cath still needed: other (indicate) (Hematuria) Assessment/Plan Hospital Course Patient is awake alert, remains hemodynamically stable, Sarmiento catheter with hematuria, continue IV fluids monitor H&H. Assessment/Plan - Hematuria, continue Sarmiento catheter. Dr. Dolan is following in urology consultation. Urine cytology negative for malignancy. - Benign prostatic hypertrophy. Continue Flomax and Proscar. - Hypertension. Continue Lotensin. - Dementia with behavioral disturbance. Currently stable with the current dose of Risperdal. - Depression. Continue Lexapro. Further recommendation will depend on patient's hospital course. Plan of care discussed with Dr. Becker. Result Diagram: 07/06/1825 07/06/18 0525 Results 24hrs Laboratory Tests Test 07/06/18 05:25 White Blood Count 2.7 #L Red Blood Count 4.42 L Hemoglobin 12.0 L Hematocrit 37.2 L Mean Corpuscular Volume 84.2 Mean Corpuscular Hemoglobin 27.1 L Mean Corpuscular Hemoglobin Concent 32.3 Red Cell Distribution Width 17.0 H Platelet Count 115 #L Mean Platelet Volume 10.5 H Immature Granulocytes % 1.800 H Neutrophils % Segmented Neutrophils % (Manual) 24 L Band Neutrophils % (Manual) 3 Lymphocytes % Lymphocytes % (Manual) 48 Reactive Lymphocytes % (Manual) 4 H Monocytes % Monocytes % (Manual) 14 H Eosinophils % Eosinophils % (Manual) 4 Basophils % Metamyelocytes % (manual) 1 H Myelocytes % (Manual) 2 H Nucleated Red Blood Cells % 0.0 Immature Granulocytes # 0.050 H Neutrophils # Neutrophils # (Manual) 0.6 L Band Neutrophils # 0.0 Lymphocytes (Manual) 1.2 Lymphocytes # Reactive Lymphocytes # 0.1 H Monocytes # Monocytes # (Manual) 0.3 Eosinophils # Basophils # Metamyelocytes # 0.0 Myelocytes # 0.0 Nucleated Red Blood Cells # Platelet Estimate DECREASED Giant Platelets 2 H Polychromasia 3+ Poikilocytosis 2+ Anisocytosis 1+ Microcytosis 1+ Ovalocytes 1+ Elliptocytes 1+ Schistocytes 1+ Sodium Level 141 Potassium Level 4.1 Chloride Level 107 Carbon Dioxide Level 25 Anion Gap 9 Blood Urea Nitrogen 12 Creatinine 0.67 Est Glomerular Filtrat Rate mL/min Glucose Level 120 Calcium Level 9.1 Exam/Review of Systems Exam Vitals Vital Signs Date Temp Pulse Resp B/P (MAP) Pulse Ox O2 O2 Flow FiO2 Time Delivery Rate 07/06/18 97.9 76 19 133/74 96 Room Air 14:00 (93) 07/04/18 2.0 20:00 Intake and Output 07/05/18 07/05/18 07/06/18 1515:00 23:00 07:00 IntakeIntake Total 50 ml 1200 ml 530 ml OutputOutput Total 1800 ml 1350 ml BalanceBalance 50 ml -600 ml -820 ml Exam Constitutional: alert, oriented Neck: supple Respiratory: clear to auscultation Cardiovascular: nl pulses Gastrointestinal: soft, non-tender Extremities: normal pulses Results Results 24hrs Laboratory Tests Test 07/06/18 05:25 White Blood Count 2.7 #L Red Blood Count 4.42 L Hemoglobin 12.0 L Hematocrit 37.2 L Mean Corpuscular Volume 84.2 Mean Corpuscular Hemoglobin 27.1 L Mean Corpuscular Hemoglobin Concent 32.3 Red Cell Distribution Width 17.0 H Platelet Count 115 #L Mean Platelet Volume 10.5 H Immature Granulocytes % 1.800 H Neutrophils % Segmented Neutrophils % (Manual) 24 L Band Neutrophils % (Manual) 3 Lymphocytes % Lymphocytes % (Manual) 48 Reactive Lymphocytes % (Manual) 4 H Monocytes % Monocytes % (Manual) 14 H Eosinophils % Eosinophils % (Manual) 4 Basophils % Metamyelocytes % (manual) 1 H Myelocytes % (Manual) 2 H Nucleated Red Blood Cells % 0.0 Immature Granulocytes # 0.050 H Neutrophils # Neutrophils # (Manual) 0.6 L Band Neutrophils # 0.0 Lymphocytes (Manual) 1.2 Lymphocytes # Reactive Lymphocytes # 0.1 H Monocytes # Monocytes # (Manual) 0.3 Eosinophils # Basophils # Metamyelocytes # 0.0 Myelocytes # 0.0 Nucleated Red Blood Cells # Platelet Estimate DECREASED Giant Platelets 2 H Polychromasia 3+ Poikilocytosis 2+ Anisocytosis 1+ Microcytosis 1+ Ovalocytes 1+ Elliptocytes 1+ Schistocytes 1+ Sodium Level 141 Potassium Level 4.1 Chloride Level 107 Carbon Dioxide Level 25 Anion Gap 9 Blood Urea Nitrogen 12 Creatinine 0.67 Est Glomerular Filtrat Rate mL/min Glucose Level 120 Calcium Level 9.1 Medications Medication Current Medications Cefepime HCl 50 ml @ 100 mls/hr Q12 IVPB Last administered on 07/06/18 10:01; Admin Dose 100 MLS/HR; Start 07/01/18 at 21:00 Acetaminophen (Tylenol Tab) 650 mg Q6H PRN PO PAIN LEVEL 1-01/20 Last administe red on 07/06/18 02:11; Admin Dose 650 MG; Start 07/01/18 at 17:00 Benazepril HCl (Lotensin) 40 mg DAILY PO Last administered on 07/06/18 10:03; Admin Dose 40 MG; Start 07/02/18 at 09:00 Carvedilol (Coreg) 6.25 mg BID PO Last administered on 07/06/18 10:03; Admin Dose 6.25 MG; Start 07/01/18 at 21:00 Cholecalciferol (Vitamin D) 400 units DAILY PO Last administered on 07/06/18 10:04; Admin Dose 400 UNITS; Start 07/02/18 at 09:00 Donepezil HCl (Aricept) 10 mg DAILY PO Last administered on 07/06/18 10:02; Admin Dose 10 MG; Start 07/02/18 at 09:00 Dutasteride (Avodart) 0.5 mg DAILY PO Last administered on 07/06/18 10:02; Admin Dose 0.5 MG; Start 07/02/18 at 09:00 Escitalopram Oxalate (Lexapro) 5 mg QAM PO Last administered on 07/06/18 10:03; Admin Dose 5 MG; Start 07/02/18 at 09:00 Ferrous Sulfate (Ferrous Sulfate (Ec)) 325 mg DAILY PO Last administered on 07/06/18 10:03; Admin Dose 325 MG; Start 07/02/18 at 09:00 Memantine (Namenda) 10 mg DAILY PO Last administered on 07/06/18 10:03; Admin Dose 10 MG; Start 07/02/18 at 09:00 Pantoprazole (Protonix Tab) 40 mg DAILY@0600 PO Last administered on 07/06/18 05:49; Admin Dose 40 MG; Start 07/02/18 at 06:00 Risperidone (Risperdal) 0.5 mg DAILY PO Last administered on 07/06/18 10:04; Admin Dose 0.5 MG; Start 07/01/18 at 18:30 Tamsulosin HCl (Flomax) 0.4 mg HS PO Last administered on 07/05/18 23:03; Admin Dose 0.4 MG; Start 07/01/18 at 21:00 Atorvastatin Calcium (Lipitor) 20 mg QHS PO Last administered on 07/05/18 23:02; Admin Dose 20 MG; Start 07/01/18 at 21:00 Tramadol HCl (Ultram) 50 mg Q6H PRN PO MODERATE PAIN LEVEL 4-6 Last administered on 07/06/18 05:49; Admin Dose 50 MG; Start 07/04/18 at 15:30 JOYCE CHOW Jul 06, 2018 17:27
--- NOTE | 2018-07-06 19:17 | CONS ---
Consult Date/Type/Reason Admit Date/Time Jul 01, 2018 at 11:23 Initial Consult Date 07/01/18 Type of Consultation: Urology Reason for Consultation Hematuria Requesting Provider: MARTA MCGUIRE MD Date/Time of Note DATE: 07/06/18 TIME: 19:15 Subjective The patient keeps moving and some time he pulls on the catheter. Objective Vitals Vital Signs Date Temp Pulse Resp B/P (MAP) Pulse Ox O2 O2 Flow FiO2 Time Delivery Rate 07/06/18 97.9 76 19 133/74 96 Room Air 14:00 (93) 07/04/18 2.0 20:00 Intake and Output 07/05/18 07/05/18 07/06/18 1414:59 22:59 06:59 IntakeIntake Total 50 ml 1200 ml 530 ml OutputOutput Total 1800 ml 1350 ml BalanceBalance 50 ml -600 ml -820 ml Exam The urine is clear to clear pink depending on the patient's activity Results/Medications Result Diagram: 07/06/18 0525 07/06/18 0525 Results 24 hrs Laboratory Tests Test 07/06/18 05:25 White Blood Count 2.7 #L Red Blood Count 4.42 L Hemoglobin 12.0 L Hematocrit 37.2 L Mean Corpuscular Volume 84.2 Mean Corpuscular Hemoglobin 27.1 L Mean Corpuscular Hemoglobin Concent 32.3 Red Cell Distribution Width 17.0 H Platelet Count 115 #L Mean Platelet Volume 10.5 H Immature Granulocytes % 1.800 H Neutrophils % Segmented Neutrophils % (Manual) 24 L Band Neutrophils % (Manual) 3 Lymphocytes % Lymphocytes % (Manual) 48 Reactive Lymphocytes % (Manual) 4 H Monocytes % Monocytes % (Manual) 14 H Eosinophils % Eosinophils % (Manual) 4 Basophils % Metamyelocytes % (manual) 1 H Myelocytes % (Manual) 2 H Nucleated Red Blood Cells % 0.0 Immature Granulocytes # 0.050 H Neutrophils # Neutrophils # (Manual) 0.6 L Band Neutrophils # 0.0 Lymphocytes (Manual) 1.2 Lymphocytes # Reactive Lymphocytes # 0.1 H Monocytes # Monocytes # (Manual) 0.3 Eosinophils # Basophils # Metamyelocytes # 0.0 Myelocytes # 0.0 Nucleated Red Blood Cells # Platelet Estimate DECREASED Giant Platelets 2 H Polychromasia 3+ Poikilocytosis 2+ Anisocytosis 1+ Microcytosis 1+ Ovalocytes 1+ Elliptocytes 1+ Schistocytes 1+ Sodium Level 141 Potassium Level 4.1 Chloride Level 107 Carbon Dioxide Level 25 Anion Gap 9 Blood Urea Nitrogen 12 Creatinine 0.67 Est Glomerular Filtrat Rate mL/min Glucose Level 120 Calcium Level 9.1 Home Meds Reported Medications Pantoprazole* (Protonix*) 40 Mg Tablet.dr, 40 MG PO DAILY, TAB 07/01/18 Ferrous Sulfate* (Ferrous Sulfate*) 325 Mg Tabec, 325 MG PO DAILY, TAB 07/01/18 Aspirin (Low Dose Aspirin) 81 Mg Tablet.dr, 81 MG PO DAILY, #30 TAB 07/01/18 Simvastatin* (Zocor*) 40 Mg Tablet, 40 MG PO QHS, #30 TAB 05/13/18 Risperidone* (Risperdal*) 1 Mg Tablet, 0.5 MG PO DAILY, TAB 05/13/18 Memantine* (Namenda*) 10 Mg Tablet, 10 MG PO DAILY, #30 TAB 05/13/18 Benazepril Hcl* (Lotensin*) 40 Mg Tablet, 40 MG PO DAILY, #30 TAB HOLD FOR SBP<110 OR IN<60 05/13/18 Escitalopram Oxalate* (Lexapro*) 5 Mg Tablet, 5 MG PO Q OTHER DAY, #30 TAB 05/13/18 Tamsulosin Hcl* (Flomax*) 0.4 Mg Cap.er.24h, 0.4 MG PO HS, CAP 05/13/18 Carvedilol* (Coreg*) 6.25 Mg Tablet, 6.25 MG PO BID, #60 TAB HOLD FOR SBP<110 OR IN<60 05/13/18 Docusate Sodium* (Colace*) 250 Mg Capsule, 250 MG PO TID, #60 CAP 05/13/18 Cholecalciferol* (Vitamin D*) 400 Unit Tablet, 400 UNIT PO DAILY, TAB 05/13/18 Dutasteride* (Avodart*) 0.5 Mg Capsule, 0.5 MG PO DAILY, CAP 05/13/18 Donepezil* (Aricept*) 10 Mg Tablet, 10 MG PO DAILY, TAB 05/13/18 Acetaminophen* (Acetaminophen*) 650 Mg Tablet, 650 MG PO Q6H PRN for PAIN LEVEL -01/20, #30 TAB 05/13/18 Medications Current Medications Cefepime HCl 50 ml @ 100 mls/hr Q12 IVPB Last administered on 07/06/18 10:01; Admin Dose 100 MLS/HR; Start 07/01/18 at 21:00 Acetaminophen (Tylenol Tab) 650 mg Q6H PRN PO PAIN LEVEL 1-01/20 Last administered on 07/06/18 02:11; Admin Dose 650 MG; Start 07/01/18 at 17:00 Benazepril HCl (Lotensin) 40 mg DAILY PO Last administered on 07/06/18 10:03; Admin Dose 40 MG; Start 07/02/18 at 09:00 Carvedilol (Coreg) 6.25 mg BID PO Last administered on 07/06/18 10:03; Admin Dose 6.25 MG; Start 07/01/18 at 21:00 Cholecalciferol (Vitamin D) 400 units DAILY PO Last administered on 07/06/18 10:04; Admin Dose 400 UNITS; Start 07/02/18 at 09:00 Donepezil HCl (Aricept) 10 mg DAILY PO Last administered on 07/06/18 10:02; Admin Dose 10 MG; Start 07/02/18 at 09:00 Dutasteride (Avodart) 0.5 mg DAILY PO Last administered on 07/06/18 10:02; Admin Dose 0.5 MG; Start 07/02/18 at 09:00 Escitalopram Oxalate (Lexapro) 5 mg QAM PO Last administered on 07/06/18 10:03; Admin Dose 5 MG; Start 07/02/18 at 09:00 Ferrous Sulfate (Ferrous Sulfate (Ec)) 325 mg DAILY PO Last administered on 07/06/18 10:03; Admin Dose 325 MG; Start 07/02/18 at 09:00 Memantine (Namenda) 10 mg DAILY PO Last administered on 07/06/18 10:03; Admin Dose 10 MG; Start 07/02/18 at 09:00 Pantoprazole (Protonix Tab) 40 mg DAILY@0600 PO Last administered on 07/06/18 05:49; Admin Dose 40 MG; Start 07/02/18 at 06:00 Risperidone (Risperdal) 0.5 mg DAILY PO Last administered on 07/06/18 10:04; Admin Dose 0.5 MG; Start 07/01/18 at 18:30 Tamsulosin HCl (Flomax) 0.4 mg HS PO Last administered on 07/05/18at 23:03; Admin Dose 0.4 MG; Start 07/01/18 at 21:00 Atorvastatin Calcium (Lipitor) 20 mg QHS PO Last administered on 07/05/18at 23:02; Admin Dose 20 MG; Start 07/01/18 at 21:00 Tramadol HCl (Ultram) 50 mg Q6H PRN PO MODERATE PAIN LEVEL 4-6 Last administered on 07/06/18at 05:49; Admin Dose 50 MG; Start 07/04/18 at 15:30 Assessment/Plan Hospital Course (Demo Recall) 82-year-old male resident of a [facility] facility has been having gross hematuria. The patient himself has dementia and is a very poor historian. The patient was admitted for workup of his hematuria and treatment. Presently he does have an indwelling Sarmiento catheter that is draining clear urine and occasional blood-tinged urine. The CT scan of the abdomen and pelvis did show a large prostate and possible blood clots inside the bladder. Plan is to keep the Sarmiento catheter and if the urine remains clear I will discontinue the Sarmiento catheter and see if he is able to urinate. His PSA is 4.6 but that his age of 82 we'll just watch it especially that his prostate is very large. We will continue him on the tamsulosin and finasteride and the cefepime. The urine culture did grow gram-positive cocci. The urine cytology showed no malignant cells. SUKHWINDER SIFUENTES MD Jul 06, 2018 19:17
[2018-07-06 20:00] VITALS: BP 129/78; PULSE 87; RESP 18
[2018-07-07] MEDS: TAMSULOSIN (SR) 0.4 MG CAP PO SCH ×2 (00:35→22:28)
[2018-07-07] MEDS: ATORVASTATIN 20 MG TAB PO SCH ×2 (00:36→22:28)
[2018-07-07] MEDS: CEFEPIME 1GM/50 ML (PMX) 50 ML IVPB SCH ×3 (00:38→22:29)
[2018-07-07] MEDS: traMADol 50 MG TAB PO PRN (00:40)
[2018-07-07 02:00] VITALS: BP 132/70; PULSE 81; RESP 18
[2018-07-07] MEDS: PANTOPRAZOLE (EC) 40 MG TAB PO SCH (06:10)
--- NOTE | 2018-07-07 08:10 | CONS ---
Consult Date/Type/Reason Admit Date/Time Jul 01, 2018 at 11:23 Initial Consult Date 07/01/18 Type of Consultation: Urology Reason for Consultation Hematuria Requesting Provider: MARTA MCGUIRE MD Date/Time of Note DATE: 07/07/18 TIME: 08:07 Subjective The patient is confused, heard hearing and keeps on moving Objective Vitals Vital Signs Date Temp Pulse Resp B/P (MAP) Pulse Ox O2 O2 Flow FiO2 Time Delivery Rate 07/07/18 98.3 81 18 132/70 98 Room Air 02:00 (90) 07/04/18 2.0 20:00 Intake and Output 07/06/18 07/06/18 07/07/18 1515:00 23:00 07:00 IntakeIntake Total 650 ml 1800 ml 240 ml OutputOutput Total 800 ml 1200 ml 1100 ml BalanceBalance -150 ml 600 ml -860 ml Exam Sarmiento catheter is draining well the urine is clear to clear pinkish Results/Medications Result Diagram: 07/07/18 0538 07/06/18 0525 Results 24 hrs Laboratory Tests Test 07/07/18 05:38 White Blood Count 3.3 #L Red Blood Count 4.80 Hemoglobin 13.0 L Hematocrit 40.6 L Mean Corpuscular Volume 84.6 Mean Corpuscular Hemoglobin 27.1 L Mean Corpuscular Hemoglobin Concent 32.0 Red Cell Distribution Width 17.1 H Platelet Count 132 L Mean Platelet Volume 10.8 H Immature Granulocytes % 2.400 H Neutrophils % 36.7 L Lymphocytes % 45.5 Monocytes % 14.8 H Eosinophils % 0.6 Basophils % 0.0 Nucleated Red Blood Cells % 0.0 Immature Granulocytes # 0.080 H Neutrophils # 1.2 L Lymphocytes # 1.5 Monocytes # 0.5 Eosinophils # 0.0 Basophils # 0.0 Nucleated Red Blood Cells # 0.0 Home Meds Reported Medications Pantoprazole* (Protonix*) 40 Mg Tablet.dr, 40 MG PO DAILY, TAB 07/01/18 Ferrous Sulfate* (Ferrous Sulfate*) 325 Mg Tabec, 325 MG PO DAILY, TAB 07/01/18 Aspirin (Low Dose Aspirin) 81 Mg Tablet.dr, 81 MG PO DAILY, #30 TAB 07/01/18 Simvastatin* (Zocor*) 40 Mg Tablet, 40 MG PO QHS, #30 TAB 05/13/18 Risperidone* (Risperdal*) 1 Mg Tablet, 0.5 MG PO DAILY, TAB 05/13/18 Memantine* (Namenda*) 10 Mg Tablet, 10 MG PO DAILY, #30 TAB 05/13/18 Benazepril Hcl* (Lotensin*) 40 Mg Tablet, 40 MG PO DAILY, #30 TAB HOLD FOR SBP<110 OR FL<60 05/13/18 Escitalopram Oxalate* (Lexapro*) 5 Mg Tablet, 5 MG PO Q OTHER DAY, #30 TAB 05/13/18 Tamsulosin Hcl* (Flomax*) 0.4 Mg Cap.er.24h, 0.4 MG PO HS, CAP 05/13/18 Carvedilol* (Coreg*) 6.25 Mg Tablet, 6.25 MG PO BID, #60 TAB HOLD FOR SBP<110 OR FL<60 05/13/18 Docusate Sodium* (Colace*) 250 Mg Capsule, 250 MG PO TID, #60 CAP 05/13/18 Cholecalciferol* (Vitamin D*) 400 Unit Tablet, 400 UNIT PO DAILY, TAB 05/13/18 Dutasteride* (Avodart*) 0.5 Mg Capsule, 0.5 MG PO DAILY, CAP 05/13/18 Donepezil* (Aricept*) 10 Mg Tablet, 10 MG PO DAILY, TAB 05/13/18 Acetaminophen* (Acetaminophen*) 650 Mg Tablet, 650 MG PO Q6H PRN for PAIN LEVEL 1-1010, #30 TAB 05/13/18 Medications Current Medications Cefepime HCl 50 ml @ 100 mls/hr Q12 IVPB Last administered on 07/07/18at 00:38; Admin Dose 100 MLS/HR; Start 07/01/18 at 21:00 Acetaminophen (Tylenol Tab) 650 mg Q6H PRN PO PAIN LEVEL 1-1010 Last administered on 07/06/18at 02:11; Admin Dose 650 MG; Start 07/01/18 at 17:00 Benazepril HCl (Lotensin) 40 mg DAILY PO Last administered on 07/06/18at 10:03; Admin Dose 40 MG; Start 07/02/18 at 09:00 Carvedilol (Coreg) 6.25 mg BID PO Last administered on 07/07/18at 00:40; Admin Dose 6.25 MG; Start 07/01/18 at 21:00 Cholecalciferol (Vitamin D) 400 units DAILY PO Last administered on 07/06/18 10:04; Admin Dose 400 UNITS; Start 07/02/18 at 09:00 Donepezil HCl (Aricept) 10 mg DAILY PO Last administered on 07/06/18 10:02; Admin Dose 10 MG; Start 07/02/18 at 09:00 Dutasteride (Avodart) 0.5 mg DAILY PO Last administered on 07/06/18 10:02; Admin Dose 0.5 MG; Start 07/02/18 at 09:00 Escitalopram Oxalate (Lexapro) 5 mg QAM PO Last administered on 07/06/18 10:03; Admin Dose 5 MG; Start 07/02/18 at 09:00 Ferrous Sulfate (Ferrous Sulfate (Ec)) 325 mg DAILY PO Last administered on 07/06/18 10:03; Admin Dose 325 MG; Start 07/02/18 at 09:00 Memantine (Namenda) 10 mg DAILY PO Last administered on 07/06/18 10:03; Admin Dose 10 MG; Start 07/02/18 at 09:00 Pantoprazole (Protonix Tab) 40 mg DAILY@0600 PO Last administered on 07/07/18 06:10; Admin Dose 40 MG; Start 07/02/18 at 06:00 Risperidone (Risperdal) 0.5 mg DAILY PO Last administered on 07/06/18 10:04; Admin Dose 0.5 MG; Start 07/01/18 at 18:30 Tamsulosin HCl (Flomax) 0.4 mg HS PO Last administered on 07/07/18 00:35; Admin Dose 0.4 MG; Start 07/01/18 at 21:00 Atorvastatin Calcium (Lipitor) 20 mg QHS PO Last administered on 07/07/18 00:36; Admin Dose 20 MG; Start 07/01/18 at 21:00 Tramadol HCl (Ultram) 50 mg Q6H PRN PO MODERATE PAIN LEVEL 4-6 Last administered on 07/07/18 00:40; Admin Dose 50 MG; Start 07/04/18 at 15:30 Assessment/Plan Hospital Course (Demo Recall) 82-year-old male resident of a [place] [facility] facility has been having gross hematuria. The patient himself has dementia and is a very poor historian. The patient was admitted for workup of his hematuria and treatment. The Sarmiento catheter was removed this morning and we will monitor his voiding and check his postvoid residual. We will continue him on the tamsulosin and finasteride and the cefepime. The urine culture did grow gram-positive cocci. The urine cytology showed no malignant cells. If he does not void or he starts bleeding again then I will do cystoscopy tomorrow and possible TURP or TURBT SUKHWINDER SIFUENTES MD Jul 07, 2018 08:09
[2018-07-07] MEDS: FERROUS SULFATE (EC) 325 MG TAB PO SCH (08:44)
[2018-07-07] MEDS: ESCITALOPRAM 10 MG TAB PO SCH (08:45)
[2018-07-07] MEDS: DONEPEZIL 10 MG TAB PO SCH (08:45)
[2018-07-07] MEDS: RISPERIDONE 0.25 MG TAB PO SCH (08:45)
[2018-07-07] MEDS: CHOLECALCIFEROL 400 UNITS TAB PO SCH (08:45)
[2018-07-07] MEDS: DUTASTERIDE 0.5 MG CAP PO SCH (08:45)
[2018-07-07] MEDS: BENAZEPRIL 40 MG TAB PO SCH (08:45)
[2018-07-07] MEDS: MEMANTINE 10 MG TAB PO SCH (08:46)
[2018-07-07 09:29] VITALS: BP 160/89; PULSE 97; RESP 18
[2018-07-07 14:39] VITALS: BP 123/64; PULSE 80; RESP 18
--- NOTE | 2018-07-07 16:03 | PN ---
Date/Time of Note Date/Time of Note DATE: 07/07/18 TIME: 15:58 Assessment/Plan VTE Prophylaxis Risk score (from Ns)>0 risk: 5 SCD applied (from Ns): Yes Pharmacological prophylaxis: NA/contraindicated Pharm contraindication: bleeding Lines/Catheters IV C[facility] (from [facility] Saline Lock Urinary Cath still in place: No Assessment/Plan Hospital Course Patient is awake alert, otherwise pleasantly confused, appropriate at times per nursing staff. Sarmiento DC'd today in the morning, continue to monitor postvoid residual, urine still was mixed with blood will continue to monitor H&H, follow- up urology recommendations. Assessment/Plan - Hematuria, continue Sarmiento catheter. Dr. Dolan is following in urology consultation. Urine cytology negative for malignancy. - Benign prostatic hypertrophy. Continue Flomax and Proscar. - Hypertension. Continue Lotensin. - Dementia with behavioral disturbance. Continue Aricept, Namenda, and Risp erdal. - Depression. Continue Lexapro. Further recommendation will depend on patient's hospital course. Plan of care discussed with Dr. Becker. Result Diagram: 07/07/18 0538 07/06/18 0525 Results 24hrs Laboratory Tests Test 07/07/18 05:38 White Blood Count 3.3 #L Red Blood Count 4.80 Hemoglobin 13.0 L Hematocrit 40.6 L Mean Corpuscular Volume 84.6 Mean Corpuscular Hemoglobin 27.1 L Mean Corpuscular Hemoglobin Concent 32.0 Red Cell Distribution Width 17.1 H Platelet Count 132 L Mean Platelet Volume 10.8 H Immature Granulocytes % 2.400 H Neutrophils % 36.7 L Lymphocytes % 45.5 Monocytes % 14.8 H Eosinophils % 0.6 Basophils % 0.0 Nucleated Red Blood Cells % 0.0 Immature Granulocytes # 0.080 H Neutrophils # 1.2 L Lymphocytes # 1.5 Monocytes # 0.5 Eosinophils # 0.0 Basophils # 0.0 Nucleated Red Blood Cells # 0.0 Exam/Review of Systems Exam Vitals Vital Signs Date Temp Pulse Resp B/P (MAP) Pulse Ox O2 O2 Flow FiO2 Time Delivery Rate 07/07/18 98.8 80 18 123/64 95 Room Air 14:39 (83) 07/04/18 2.0 20:00 Intake and Output 07/06/18 07/06/1819 1515:00 23:00 07:00 IntakeIntake Total 650 ml 1800 ml 240 ml OutputOutput Total 800 ml 1200 ml 1100 ml BalanceBalance -150 ml 600 ml -860 ml Exam Constitutional: alert, oriented Neck: supple Respiratory: clear to auscultation Cardiovascular: nl pulses Gastrointestinal: soft, non-tender Extremities: normal pulses Results Results 24hrs Laboratory Tests Test 07/07/18 05:38 White Blood Count 3.3 #L Red Blood Count 4.80 Hemoglobin 13.0 L Hematocrit 40.6 L Mean Corpuscular Volume 84.6 Mean Corpuscular Hemoglobin 27.1 L Mean Corpuscular Hemoglobin Concent 32.0 Red Cell Distribution Width 17.1 H Platelet Count 132 L Mean Platelet Volume 10.8 H Immature Granulocytes % 2.400 H Neutrophils % 36.7 L Lymphocytes % 45.5 Monocytes % 14.8 H Eosinophils % 0.6 Basophils % 0.0 Nucleated Red Blood Cells % 0.0 Immature Granulocytes # 0.080 H Neutrophils # 1.2 L Lymphocytes # 1.5 Monocytes # 0.5 Eosinophils # 0.0 Basophils # 0.0 Nucleated Red Blood Cells # 0.0 Medications Medication Current Medications Cefepime HCl 50 ml @ 100 mls/hr Q12 IVPB Last administered on 07/07/18 08:44; Admin Dose 100 MLS/HR; Start 07/01/18 at 21:00 Acetaminophen (Tylenol Tab) 650 mg Q6H PRN PO PAIN LEVEL 1-10/10 Last administered on 07/06/18at 02:11; Admin Dose 650 MG; Start 07/01/18 at 17:00 Benazepril HCl (Lotensin) 40 mg DAILY PO Last administered on 07/07/18 08:45; Admin Dose 40 MG; Start 07/02/18 at 09:00 Carvedilol (Coreg) 6.25 mg BID PO Last administered on 07/07/18 08:45; Admin Dose 6.25 MG; Start 07/01/18 at 21:00 Cholecalciferol (Vitamin D) 400 units DAILY PO Last administered on 07/07/18 08:45; Admin Dose 400 UNITS; Start 07/02/18 at 09:00 Donepezil HCl (Aricept) 10 mg DAILY PO Last administered on 07/07/18 08:45; Admin Dose 10 MG; Start 07/02/18 at 09:00 Dutasteride (Avodart) 0.5 mg DAILY PO Last administered on 07/07/18 08:45; Admin Dose 0.5 MG; Start 07/02/18 at 09:00 Escitalopram Oxalate (Lexapro) 5 mg QAM PO Last administered on 07/07/18 08:45; Admin Dose 5 MG; Start 07/02/18 at 09:00 Ferrous Sulfate (Ferrous Sulfate (Ec)) 325 mg DAILY PO Last administered on 07/07/18 08:44; Admin Dose 325 MG; Start 07/02/18 at 09:00 Memantine (Namenda) 10 mg DAILY PO Last administered on 07/07/18 08:46; Admin Dose 10 MG; Start 07/02/18 at 09:00 Pantoprazole (Protonix Tab) 40 mg DAILY@0600 PO Last administered on 07/07/18 06:10; Admin Dose 40 MG; Start 07/02/18 at 06:00 Tamsulosin HCl (Flomax) 0.4 mg HS PO Last administered on 07/07/18 00:35; Adm in Dose 0.4 MG; Start 07/01/18 at 21:00 Atorvastatin Calcium (Lipitor) 20 mg QHS PO Last administered on 07/07/18 00:36; Admin Dose 20 MG; Start 07/01/18 at 21:00 Tramadol HCl (Ultram) 50 mg Q6H PRN PO MODERATE PAIN LEVEL 4-6 Last administered on 07/07/18 00:40; Admin Dose 50 MG; Start 07/04/18 at 15:30 Risperidone (Risperdal) 0.5 mg HS PO ; Start 07/07/18 at 21:00 JOYCE CHOW Jul 07, 2018 16:03
[2018-07-07 20:17] VITALS: BP 121/64; PULSE 90; RESP 18
[2018-07-07] MEDS ORDERED: RISPERIDONE 0.25 MG TAB PO SCH (21:00)
[2018-07-08 01:52] VITALS: BP 138/94; PULSE 96; RESP 16
[2018-07-08] MEDS: PANTOPRAZOLE (EC) 40 MG TAB PO SCH (06:03)
[2018-07-08 07:15] VITALS: BP 113/72; PULSE 86; RESP 16
[2018-07-08] MEDS: CEFEPIME 1GM/50 ML (PMX) 50 ML IVPB SCH ×2 (08:27→20:53)
[2018-07-08] MEDS: DUTASTERIDE 0.5 MG CAP PO SCH (08:31)
[2018-07-08] MEDS: ESCITALOPRAM 10 MG TAB PO SCH (08:31)
[2018-07-08] MEDS: DONEPEZIL 10 MG TAB PO SCH (08:32)
[2018-07-08] MEDS: FERROUS SULFATE (EC) 325 MG TAB PO SCH (08:32)
[2018-07-08] MEDS: MEMANTINE 10 MG TAB PO SCH (08:32)
[2018-07-08] MEDS: BENAZEPRIL 40 MG TAB PO SCH (08:33)
[2018-07-08] MEDS: CHOLECALCIFEROL 400 UNITS TAB PO SCH (08:33)
--- NOTE | 2018-07-08 12:38 | CONS ---
Assessment/Plan Assessment/Plan Assessment/Plan (Daily) Assessment recommendations; 1. Patient admitted for gross hematuria managed conservatively with Sarmiento catheter removed now patient able to void without any difficulty. 2. Incidental discovery of very minimal area of platelike atelectasis involving the right midlung field likely residual scarring. 3. History of BPH, anemia, hypertension, and depression. 4. Possibly sleep apnea. Continue current supportive care. Further recommendations per urologist. Patient potentially could benefit from sleep study on an outpatient basis. Consultation Date/Type/Reason Admit Date/Time Jul 01, 2018 at 11:23 Date of Consultation: Jul 08, 2018 Type of Consult Pulmonary Pulmonary consult requested for evaluation of platelike atelectasis seen on CT of the abdomen involving right middle lobe. Patient is a pleasant 82-year-old male who was transferred from [facility] with gross hematuria. The patient has been managed conservatively with Sarmiento catheter placement with significant improvement in hematuria. Urine cytology is negative. Patient also underwent CT of the abdomen which is including lower cuts of chest which is showing area of very minimal platelike atelectasis in the right midlung field. The patient is essentially asymptomatic from a pulmonary perspective. However he does complain of occasional snoring and sleepiness. Denies any coughing, shortness of breath, chest pain, wheezing. Past medical history; next 1. Hypertension 2. BPH. 3. Anemia. 4. Thrombocytopenia. 5. Depression. Medications; reviewed. Allergies; none. Social history; remote history of scant smoking. Family history noncontributory. Occupational history noncontributory. Review of systems; denies any headache, chest pain, shortness of breath, coughing, sputum production or hemoptysis. Denies any abdominal pain, nausea vomiting, fever. Denies any edema orthopnea. Denies any weight change. General exam; elderly male, awake alert, currently no distress on room air. Date/Time of Note DATE: 07/08/18 TIME: 12:35 Past Medical History Medical History: high cholesterol, hypertension Home Meds Reported Medications Pantoprazole* (Protonix*) 40 Mg Tablet., 40 MG PO DAILY, TAB 07/01/18 Ferrous Sulfate* (Ferrous Sulfate*) 325 Mg Tabec, 325 MG PO DAILY, TAB 07/01/18 Aspirin (Low Dose Aspirin) 81 Mg Tablet., 81 MG PO DAILY, #30 TAB 07/01/18 Simvastatin* (Zocor*) 40 Mg Tablet, 40 MG PO QHS, #30 TAB 05/13/18 Risperidone* (Risperdal*) 1 Mg Tablet, 0.5 MG PO DAILY, TAB 05/13/18 Memantine* (Namenda*) 10 Mg Tablet, 10 MG PO DAILY, #30 TAB 05/13/18 Benazepril Hcl* (Lotensin*) 40 Mg Tablet, 40 MG PO DAILY, #30 TAB HOLD FOR SBP<110 OR VA<60 05/13/18 Escitalopram Oxalate* (Lexapro*) 5 Mg Tablet, 5 MG PO Q OTHER DAY, #30 TAB 05/13/18 Tamsulosin Hcl* (Flomax*) 0.4 Mg Cap.er.24h, 0.4 MG PO HS, CAP 05/13/18 Carvedilol* (Coreg*) 6.25 Mg Tablet, 6.25 MG PO BID, #60 TAB HOLD FOR SBP<110 OR VA<60 05/13/18 Docusate Sodium* (Colace*) 250 Mg Capsule, 250 MG PO TID, #60 CAP 05/13/18 Cholecalciferol* (Vitamin D*) 400 Unit Tablet, 400 UNIT PO DAILY, TAB 05/13/18 Dutasteride* (Avodart*) 0.5 Mg Capsule, 0.5 MG PO DAILY, CAP 05/13/18 Donepezil* (Aricept*) 10 Mg Tablet, 10 MG PO DAILY, TAB 05/13/18 Acetaminophen* (Acetaminophen*) 650 Mg Tablet, 650 MG PO Q6H PRN for PAIN LEVEL 1-10, #30 TAB 05/13/18 Medications Current Medications Cefepime HCl 50 ml @ 100 mls/hr Q12 IVPB Last administered on 07/08/18at 08:27; Admin Dose 100 MLS/HR; Start 07/01/18 at 21:00 Acetaminophen (Tylenol Tab) 650 mg Q6H PRN PO PAIN LEVEL 1-1010 Last administered on 07/06/18at 02:11; Admin Dose 650 MG; Start 07/01/18 at 17:00 Benazepril HCl (Lotensin) 40 mg DAILY PO Last administered on 07/08/18at 08:33; Admin Dose 40 MG; Start 07/02/18 at 09:00 Carvedilol (Coreg) 6.25 mg BID PO Last administered on 07/08/18 08:32; Admin Dose 6.25 MG; Start 07/01/18 at 21:00 Cholecalciferol (Vitamin D) 400 units DAILY PO Last administered on 07/08/18 08:33; Admin Dose 400 UNITS; Start 07/02/18 at 09:00 Donepezil HCl (Aricept) 10 mg DAILY PO Last administered on 07/08/18 08:32; Admin Dose 10 MG; Start 07/02/18 at 09:00 Dutasteride (Avodart) 0.5 mg DAILY PO Last administered on 07/08/18 08:31; Admin Dose 0.5 MG; Start 07/02/18 at 09:00 Escitalopram Oxalate (Lexapro) 5 mg QAM PO Last administered on 07/08/18 08:31; Admin Dose 5 MG; Start 07/02/18 at 09:00 Ferrous Sulfate (Ferrous Sulfate (Ec)) 325 mg DAILY PO Last administered on 07/08/18 08:32; Admin Dose 325 MG; Start 07/02/18 at 09:00 Memantine (Namenda) 10 mg DAILY PO Last administered on 07/08/18 08:32; Admin Dose 10 MG; Start 07/02/18 at 09:00 Pantoprazole (Protonix Tab) 40 mg DAILY@0600 PO Last administered on 07/08/18 06:03; Admin Dose 40 MG; Start 07/02/18 at 06:00 Tamsulosin HCl (Flomax) 0.4 mg HS PO Last administered on 07/07/18 22:28; Admin Dose 0.4 MG; Start 07/01/18 at 21:00 Atorvastatin Calcium (Lipitor) 20 mg QHS PO Last administered on 07/07/18 22:28; Admin Dose 20 MG; Start 07/01/18 at 21:00 Tramadol HCl (Ultram) 50 mg Q6H PRN PO MODERATE PAIN LEVEL 4-6 Last administered on 07/07/18 00:40; Admin Dose 50 MG; Start 07/04/18 at 15:30 Risperidone (Risperdal) 0.5 mg HS PO Last administered on 07/07/18 22:28; Admin Dose 0.5 MG; Start 07/07/18 at 21:00 Allergies: Coded Allergies: No Known Allergy (Unverified , 07/01/18) Past Surgical History Past Surgical Hx: no surgical history Social History Alcohol Use: none Smoking Status: Former smoker Exam/Review of Systems Exam Vitals Vital Signs Date Temp Pulse Resp B/P (MAP) Pulse Ox O2 O2 Flow FiO2 Time Delivery Rate 07/08/18 98.9 86 16 113/72 93 Room Air 07:15 (86) 07/04/18 2.0 20:00 Intake and Output 07/07/18 07/07/18 07/08/18 1515:00 23:00 07:00 IntakeIntake Total 770 ml 290 ml OutputOutput Total 150 ml 10 ml 19 ml BalanceBalance 620 ml 280 ml -19 ml Exam H EENT exam; supple neck, no JVD. No lymphadenopathy. Midline trachea. No thyromegaly. Patient has dentures. No neck masses. Chest exam; clear to auscultation. S1-S2 audible, no murmurs. Regular rhythm. Abdomen exam; soft, no organomegaly. Nontender. Bowel sounds audible. Extremity exam; peripheral edema clubbing. Pulses 2+. [employer] exam; no focal deficit. Results Result Diagram: 07/08/18 0643 07/08/18 0642 Results 24hrs Laboratory Tests Test 07/08/18 06:42 07/08/18 06:43 Sodium Level 141 Potassium Level 4.1 Chloride Level 106 Carbon Dioxide Level 26 Anion Gap 9 Blood Urea Nitrogen 11 Creatinine 0.60 L Est Glomerular Filtrat Rate mL/min Glucose Level 121 Calcium Level 9.7 White Blood Count 3.1 L Red Blood Count 4.70 Hemoglobin 12.5 L Hematocrit 39.5 L Mean Corpuscular Volume 84.0 Mean Corpuscular Hemoglobin 26.6 L Mean Corpuscular Hemoglobin Concent 31.6 L Red Cell Distribution Width 17.0 H Platelet Count 153 Mean Platelet Volume 10.0 Immature Granulocytes % 1.600 H Neutrophils % 44.1 Lymphocytes % 36.5 Monocytes % 16.5 H Eosinophils % 1.0 Basophils % 0.3 Nucleated Red Blood Cells % 0.0 Immature Granulocytes # 0.050 H Neutrophils # 1.4 L Lymphocytes # 1.1 Monocytes # 0.5 Eosinophils # 0.0 Basophils # 0.0 Nucleated Red Blood Cells # 0.0 Medications Medication Current Medications Cefepime HCl 50 ml @ 100 mls/hr Q12 IVPB Last administered on 07/08/18 08:27; Admin Dose 100 MLS/HR; Start 07/01/18 at 21:00 Acetaminophen (Tylenol Tab) 650 mg Q6H PRN PO PAIN LEVEL 1-1010 Last administered on 07/06/18 02:11; Admin Dose 650 MG; Start 07/01/18 at 17:00 Benazepril HCl (Lotensin) 40 mg DAILY PO Last administered on 07/08/18 08:33; Admin Dose 40 MG; Start 07/02/18 at 09:00 Carvedilol (Coreg) 6.25 mg BID PO Last administered on 07/08/18 08:32; Admin Dose 6.25 MG; Start 07/01/18 at 21:00 Cholecalciferol (Vitamin D) 400 units DAILY PO Last administered on 07/08/18 08:33; Admin Dose 400 UNITS; Start 07/02/18 at 09:00 Donepezil HCl (Aricept) 10 mg DAILY PO Last administered on 07/08/18 08:32; Admin Dose 10 MG; Start 07/02/18 at 09:00 Dutasteride (Avodart) 0.5 mg DAILY PO Last administered on 07/08/18 08:31; Admin Dose 0.5 MG; Start 07/02/18 at 09:00 Escitalopram Oxalate (Lexapro) 5 mg QAM PO Last administered on 07/08/18 08:31; Admin Dose 5 MG; Start 07/02/18 at 09:00 Ferrous Sulfate (Ferrous Sulfate (Ec)) 325 mg DAILY PO Last administered on 07/08/18 08:32; Admin Dose 325 MG; Start 07/02/18 at 09:00 Memantine (Namenda) 10 mg DAILY PO Last administered on 07/08/18 08:32; Admin Dose 10 MG; Start 07/02/18 at 09:00 Pantoprazole (Protonix Tab) 40 mg DAILY@0600 PO Last administered on 07/08/18 06:03; Admin Dose 40 MG; Start 07/02/18 at 06:00 Tamsulosin HCl (Flomax) 0.4 mg HS PO Last administered on 07/07/18 22:28; Admin Dose 0.4 MG; Start 07/01/18 at 21:00 Atorvastatin Calcium (Lipitor) 20 mg QHS PO Last administered on 07/07/18at 22:2 8; Admin Dose 20 MG; Start 07/01/18 at 21:00 Tramadol HCl (Ultram) 50 mg Q6H PRN PO MODERATE PAIN LEVEL 4-6 Last administered on 07/07/18 00:40; Admin Dose 50 MG; Start 07/04/18 at 15:30 Risperidone (Risperdal) 0.5 mg HS PO Last administered on 07/07/18at 22:28; Admin Dose 0.5 MG; Start 07/07/18 at 21:00 ALYSSA AZAR Jul 08, 2018 12:38
--- NOTE | 2018-07-08 13:19 | PN ---
Date/Time of Note Date/Time of Note DATE: 07/08/18 TIME: 13:15 Assessment/Plan VTE Prophylaxis Risk score (from Ns)>0 risk: 5 SCD applied (from Ns): Yes Pharmacological prophylaxis: NA/contraindicated Pharm contraindication: bleeding Lines/Catheters IV Catheter Type (from [facility]): Saline Lock Urinary Cath still in place: No Assessment/Plan Hospital Course Patient is awake alert, otherwise very confused, inappropriate, pending tele- psychiatric evaluation, patient is able to void, no hematuria today per RN. Patient is undergoing pulmonary evaluation for Right lower lobe scar versus plate-like atelectasis. Assessment/Plan - Hematuria, continue Sarmiento catheter. Dr. Dolan is following in urology consultation. Urine cytology negative for malignancy. - Benign prostatic hypertrophy. Continue Flomax and Proscar. - Hypertension. Continue Lotensin. - Dementia with behavioral disturbance. Continue Aricept, Namenda, and Risperdal. - Depression. Continue Lexapro. Further recommendation will depend on patient's hospital course. Plan of care discussed with Dr. Becker. Result Diagram: 07/08/18 0643 07/08/18 0642 Results 24hrs Laboratory Tests Test 07/08/18 06:42 07/08/18 06:43 Sodium Level 141 Potassium Level 4.1 Chloride Level 106 Carbon Dioxide Level 26 Anion Gap 9 Blood Urea Nitrogen 11 Creatinine 0.60 L Est Glomerular Filtrat Rate mL/min Glucose Level 121 Calcium Level 9.7 White Blood Count 3.1 L Red Blood Count 4.70 Hemoglobin 12.5 L Hematocrit 39.5 L Mean Corpuscular Volume 84.0 Mean Corpuscular Hemoglobin 26.6 L Mean Corpuscular Hemoglobin Concent 31.6 L Red Cell Distribution Width 17.0 H Platelet Count 153 Mean Platelet Volume 10.0 Immature Granulocytes % 1.600 H Neutrophils % 44.1 Lymphocytes % 36.5 Monocytes % 16.5 H Eosinophils % 1.0 Basophils % 0.3 Nucleated Red Blood Cells % 0.0 Immature Granulocytes # 0.050 H Neutrophils # 1.4 L Lymphocytes # 1.1 Monocytes # 0.5 Eosinophils # 0.0 Basophils # 0.0 Nucleated Red Blood Cells # 0.0 Exam/Review of Systems Exam Vitals Vital Signs Date Temp Pulse Resp B/P (MAP) Pulse Ox O2 O2 Flow FiO2 Time Delivery Rate 07/08/18 98.9 86 16 113/72 93 Room Air 07:15 (86) 07/04/18 2.0 20:00 Intake and Output 07/07/18 07/07/18 07/08/18 1515:00 23:00 07:00 IntakeIntake Total 770 ml 290 ml OutputOutput Total 150 ml 10 ml 19 ml BalanceBalance 620 ml 280 ml -19 ml Exam Constitutional: alert, oriented Neck: supple Respiratory: clear to auscultation Cardiovascular: nl pulses Gastrointestinal: soft, non-tender Extremities: normal pulses Results Results 24hrs Laboratory Tests Test 07/08/18 06:42 07/08/18 06:43 Sodium Level 141 Potassium Level 4.1 Chloride Level 106 Carbon Dioxide Level 26 Anion Gap 9 Blood Urea Nitrogen 11 Creatinine 0.60 L Est Glomerular Filtrat Rate mL/min Glucose Level 121 Calcium Level 9.7 White Blood Count 3.1 L Red Blood Count 4.70 Hemoglobin 12.5 L Hematocrit 39.5 L Mean Corpuscular Volume 84.0 Mean Corpuscular Hemoglobin 26.6 L Mean Corpuscular Hemoglobin Concent 31.6 L Red Cell Distribution Width 17.0 H Platelet Count 153 Mean Platelet Volume 10.0 Immature Granulocytes % 1.600 H Neutrophils % 44.1 Lymphocytes % 36.5 Monocytes % 16.5 H Eosinophils % 1.0 Basophils % 0.3 Nucleated Red Blood Cells % 0.0 Immature Granulocytes # 0.050 H Neutrophils # 1.4 L Lymphocytes # 1.1 Monocytes # 0.5 Eosinophils # 0.0 Basophils # 0.0 Nucleated Red Blood Cells # 0.0 Medications Medication Current Medications Cefepime HCl 50 ml @ 100 mls/hr Q12 IVPB Last administered on 07/08/18at 08:27; Admin Dose 100 MLS/HR; Start 07/01/18 at 21:00 Acetaminophen (Tylenol Tab) 650 mg Q6H PRN PO PAIN LEVEL 1-10/10 Last administered on 07/06/18at 02:11; Admin Dose 650 MG; Start 07/01/18 at 17:00 Benazepril HCl (Lotensin) 40 mg DAILY PO Last administered on 07/08/18 08:33; Admin Dose 40 MG; Start 07/02/18 at 09:00 Carvedilol (Coreg) 6.25 mg BID PO Last administered on 07/08/18 08:32; Admin Dose 6.25 MG; Start 07/01/18 at 21:00 Cholecalciferol (Vitamin D) 400 units DAILY PO Last administered on 07/08/18 08:33; Admin Dose 400 UNITS; Start 07/02/18 at 09:00 Donepezil HCl (Aricept) 10 mg DAILY PO Last administered on 07/08/18 08:32; Admin Dose 10 MG; Start 07/02/18 at 09:00 Dutasteride (Avodart) 0.5 mg DAILY PO Last administered on 07/08/18 08:31; Admin Dose 0.5 MG; Start 07/02/18 at 09:00 Escitalopram Oxalate (Lexapro) 5 mg QAM PO Last administered on 07/08/18 08:31; Admin Dose 5 MG; Start 07/02/18 at 09:00 Ferrous Sulfate (Ferrous Sulfate (Ec)) 325 mg DAILY PO Last administered on 07/08/18 08:32; Admin Dose 325 MG; Start 07/02/18 at 09:00 Memantine (Namenda) 10 mg DAILY PO Last administered on 07/08/18 08:32; Admin Dose 10 MG; Start 07/02/18 at 09:00 Pantoprazole (Protonix Tab) 40 mg DAILY@0600 PO Last administered on 07/08/18 06:03; Admin Dose 40 MG; Start 07/02/18 at 06:00 Tamsulosin HCl (Flomax) 0.4 mg HS PO Last administered on 07/07/18 22:28; Admin Dose 0.4 MG; Start 07/01/18 at 21:00 Atorvastatin Calcium (Lipitor) 20 mg QHS PO Last administered on 07/07/18 22:28; Admin Dose 20 MG; Start 07/01/18 at 21:00 Tramadol HCl (Ultram) 50 mg Q6H PRN PO MODERATE PAIN LEVEL 4-6 Last adminis tered on 07/07/18 00:40; Admin Dose 50 MG; Start 07/04/18 at 15:30 Risperidone (Risperdal) 0.5 mg HS PO Last administered on 07/07/18 22:28; Admin Dose 0.5 MG; Start 07/07/18 at 21:00 JOYCE CHOW Jul 08, 2018 13:19
[2018-07-08 14:34] VITALS: BP 120/70; PULSE 79; RESP 16
--- NOTE | 2018-07-08 14:36 | PSY ---
Date/Time of Note Date/Time of Note DATE: 07/08/18 TIME: 17:30 Psychiatric Subjective Eval Consent Pt consented to telemedicine: Yes Subjective Evaluation Patient location: inpatient Chief Complaint: fr [place] hematuria and fever since 0230 given 650mg tylenol History of present illness HPI: 82 yo male with ho dementia, came to hospital and admitted to medicine for hematuria. Per nurses, pt has been very sexually inappropriate, somewhat agitated and anxious. medical condition has been stabilized. Psych was consulted. spoke jonathan morales via naur[place] seismic interpreter. Pt was unable to attend to interview. Immediately began showing interpeter his genitalia and shaking it at her. Would not coherently answer questions. Past Psych Hx: unable to obtain due to dementia MPHx: BPH, dementia, hematuria Meds; see medical record, as well as risperidone 0.5mg hs, lexapro 5mg nkda MSE: calm but during interview gets up and shakes genitalia at nurse; normal speech, does not attend to interview at all Imp: 82 yo male with dementia, must also r/o delirium Full delirium workup including MRI/CT brain/head, rpr tsh, utox infectious workup (e.g., UA), cbc lfts nh4 electrolytes begin zyprexa 2.5mg po tid discontinue risperidone For moderate agitation Zyprexa 5mg po prn For severe agitation chlorpromazine 25mg im prn Avoid benzodiazepines and anticholinergics as they can worsen delirium Social work consult to help with placement, pt likely will need home health aid if he goes home, or penitentiary 1:1 sitter while on medicine parallel hx from family to confirm whether this is new behavior (more consistent with delirium) or chronic (more consistent with dementia) Medical history Problems Medical Problems: (1) Acute dehydration Status: Acute (2) Acute UTI Status: Acute (3) Altered level of consciousness Status: Acute (4) Bandemia Status: Acute (5) Dementia Status: Acute (6) Dementia with behavioral problem Status: Acute (7) Hematuria Status: Acute (8) Pharyngitis Status: Acute (9) UTI (urinary tract infection) Status: Acute Allergies: Coded Allergies: No Known Allergy (Unverified , 07/01/18) Psychiatric Objective Eval Mental Status Examination: Laboratory Results Laboratory Tests Test 07/07/18 05:38 07/08/18 06:42 07/08/18 06:43 White Blood Count 3.3 10^3/ul 3.1 10^3/ul Red Blood Count 4.80 10^6/ul 4.70 10^6/ul Hemoglobin 13.0 g/dl 12.5 g/dl Hematocrit 40.6 % 39.5 % Mean Corpuscular Volume 84.6 fl 84.0 fl Mean Corpuscular Hemoglobin 27.1 pg 26.6 pg Mean Corpuscular 32.0 g/dl 31.6 g/dl Hemoglobin Concent Red Cell Distribution Width 17.1 % 17.0 % Platelet Count 132 10^3/UL 153 10^3/UL Mean Platelet Volume 10.8 fl 10.0 fl Immature Granulocytes % 2.400 % 1.600 % Neutrophils % 36.7 % 44.1 % Lymphocytes % 45.5 % 36.5 % Monocytes % 14.8 % 16.5 % Eosinophils % 0.6 % 1.0 % Basophils % 0.0 % 0.3 % Nucleated Red Blood Cells % 0.0 /100WBC 0.0 /100WBC Immature Granulocytes # 0.080 10^3/ul 0.050 10^3/ul Neutrophils # 1.2 10^3/ul 1.4 10^3/ul Lymphocytes # 1.5 10^3/ul 1.1 10^3/ul Monocytes # 0.5 10^3/ul 0.5 10^3/ul Eosinophils # 0.0 10^3/ul 0.0 10^3/ul Basophils # 0.0 10^3/ul 0.0 10^3/ul Nucleated Red Blood Cells # 0.0 10^3/ul 0.0 10^3/ul Sodium Level 141 mmol/L Potassium Level 4.1 mmol/L Chloride Level 106 mmol/L Carbon Dioxide Level 26 mmol/L Anion Gap 9 Blood Urea Nitrogen 11 mg/dl Creatinine 0.60 mg/dl Est Glomerular Filtrat mL/min Rate mL/min Glucose Level 121 mg/dl Calcium Level 9.7 mg/dl Assessment and Plan Recommendation/Plan Multiple antipsychotics: No Discharge Disposition: Community Legal Status: Voluntary KAREN PULIDO Jul 08, 2018 14:36
--- NOTE | 2018-07-08 19:20 | CONS ---
Consult Date/Type/Reason Admit Date/Time Jul 01, 2018 at 11:23 Initial Consult Date 07/01/18 Type of Consultation: Urology Reason for Consultation Hematuria Requesting Provider: MARTA MCGUIRE MD Date/Time of Note DATE: 07/08/18 TIME: 19:13 Subjective Patient states that he is fine. He is confused at times. Hard of hearing Objective Vitals Vital Signs Date Temp Pulse Resp B/P (MAP) Pulse Ox O2 O2 Flow FiO2 Time Delivery Rate 07/08/18 98.5 79 16 120/70 96 14:34 (87) 07/08/18 Room Air 07:15 07/04/18 2.0 20:00 Intake and Output 07/07/18 07/07/18 07/08/18 1515:00 23:00 07:00 IntakeIntake Total 770 ml 290 ml OutputOutput Total 150 ml 10 ml 19 ml BalanceBalance 620 ml 280 ml -19 ml Exam The bladder is not distended. The patient has been voiding and the urine is clear. He is voiding frequently and the postvoid residual has been low between 15-25 mL Results/Medications Result Diagram: 07/08/18 0643 07/08/18 0642 Results 24 hrs Laboratory Tests Test 07/08/18 06:42 07/08/18 06:43 Sodium Level 141 Potassium Level 4.1 Chloride Level 106 Carbon Dioxide Level 26 Anion Gap 9 Blood Urea Nitrogen 11 Creatinine 0.60 L Est Glomerular Filtrat Rate mL/min Glucose Level 121 Calcium Level 9.7 White Blood Count 3.1 L Red Blood Count 4.70 Hemoglobin 12.5 L Hematocrit 39.5 L Mean Corpuscular Volume 84.0 Mean Corpuscular Hemoglobin 26.6 L Mean Corpuscular Hemoglobin Concent 31.6 L Red Cell Distribution Width 17.0 H Platelet Count 153 Mean Platelet Volume 10.0 Immature Granulocytes % 1.600 H Neutrophils % 44.1 Lymphocytes % 36.5 Monocytes % 16.5 H Eosinophils % 1.0 Basophils % 0.3 Nucleated Red Blood Cells % 0.0 Immature Granulocytes # 0.050 H Neutrophils # 1.4 L Lymphocytes # 1.1 Monocytes # 0.5 Eosinophils # 0.0 Basophils # 0.0 Nucleated Red Blood Cells # 0.0 Home Meds Reported Medications Pantoprazole* (Protonix*) 40 Mg Tablet.dr, 40 MG PO DAILY, TAB 07/01/18 Ferrous Sulfate* (Ferrous Sulfate*) 325 Mg Tabec, 325 MG PO DAILY, TAB 07/01/18 Aspirin (Low Dose Aspirin) 81 Mg Tablet.dr, 81 MG PO DAILY, #30 TAB 07/01/18 Simvastatin* (Zocor*) 40 Mg Tablet, 40 MG PO QHS, #30 TAB 05/13/18 Risperidone* (Risperdal*) 1 Mg Tablet, 0.5 MG PO DAILY, TAB 05/13/18 Memantine* (Namenda*) 10 Mg Tablet, 10 MG PO DAILY, #30 TAB 05/13/18 Benazepril Hcl* (Lotensin*) 40 Mg Tablet, 40 MG PO DAILY, #30 TAB HOLD FOR SBP<110 OR MS<60 05/13/18 Escitalopram Oxalate* (Lexapro*) 5 Mg Tablet, 5 MG PO Q OTHER DAY, #30 TAB 05/13/18 Tamsulosin Hcl* (Flomax*) 0.4 Mg Cap.er.24h, 0.4 MG PO HS, CAP 05/13/18 Carvedilol* (Coreg*) 6.25 Mg Tablet, 6.25 MG PO BID, #60 TAB HOLD FOR SBP<110 OR MS<60 05/13/18 Docusate Sodium* (Colace*) 250 Mg Capsule, 250 MG PO TID, #60 CAP 05/13/18 Cholecalciferol* (Vitamin D*) 400 Unit Tablet, 400 UNIT PO DAILY, TAB 05/13/18 Dutasteride* (Avodart*) 0.5 Mg Capsule, 0.5 MG PO DAILY, CAP 05/13/18 Donepezil* (Aricept*) 10 Mg Tablet, 10 MG PO DAILY, TAB 05/13/18 Acetaminophen* (Acetaminophen*) 650 Mg Tablet, 650 MG PO Q6H PRN for PAIN LEVEL 1-01/20, #30 TAB 05/13/18 Medications Current Medications Cefepime HCl 50 ml @ 100 mls/hr Q12 IVPB Last administered on 07/08/18at 08:27; Admin Dose 100 MLS/HR; Start 07/01/18 at 21:00 Acetaminophen (Tylenol Tab) 650 mg Q6H PRN PO PAIN LEVEL 1-01/20 Last adminis tered on 07/06/18at 02:11; Admin Dose 650 MG; Start 07/01/18 at 17:00 Benazepril HCl (Lotensin) 40 mg DAILY PO Last administered on 07/08/18 08:33; Admin Dose 40 MG; Start 07/02/18 at 09:00 Carvedilol (Coreg) 6.25 mg BID PO Last administered on 07/08/18 08:32; Admin Dose 6.25 MG; Start 07/01/18 at 21:00 Cholecalciferol (Vitamin D) 400 units DAILY PO Last administered on 07/08/18 08:33; Admin Dose 400 UNITS; Start 07/02/18 at 09:00 Donepezil HCl (Aricept) 10 mg DAILY PO Last administered on 07/08/18 08:32; Admin Dose 10 MG; Start 07/02/18 at 09:00 Dutasteride (Avodart) 0.5 mg DAILY PO Last administered on 07/08/18 08:31; Admin Dose 0.5 MG; Start 07/02/18 at 09:00 Escitalopram Oxalate (Lexapro) 5 mg QAM PO Last administered on 07/08/18 08:31; Admin Dose 5 MG; Start 07/02/18 at 09:00 Ferrous Sulfate (Ferrous Sulfate (Ec)) 325 mg DAILY PO Last administered on 07/08/18 08:32; Admin Dose 325 MG; Start 07/02/18 at 09:00 Memantine (Namenda) 10 mg DAILY PO Last administered on 07/08/18 08:32; Admin Dose 10 MG; Start 07/02/18 at 09:00 Pantoprazole (Protonix Tab) 40 mg DAILY@0600 PO Last administered on 07/08/18 06:03; Admin Dose 40 MG; Start 07/02/18 at 06:00 Tamsulosin HCl (Flomax) 0.4 mg HS PO Last administered on 07/07/18 22:28; Admin Dose 0.4 MG; Start 07/01/18 at 21:00 Atorvastatin Calcium (Lipitor) 20 mg QHS PO Last administered on 07/07/18 22:28; Admin Dose 20 MG; Start 07/01/18 at 21:00 Tramadol HCl (Ultram) 50 mg Q6H PRN PO MODERATE PAIN LEVEL 4-6 Last ad ministered on 07/07/18at 00:40; Admin Dose 50 MG; Start 07/04/18 at 15:30 Risperidone (Risperdal) 0.5 mg HS PO Last administered on 07/07/18at 22:28; Admin Dose 0.5 MG; Start 07/07/18 at 21:00 Assessment/Plan Hospital Course (Demo Recall) 82-year-old male resident of a halfway facility has been having gross hematuria. The patient himself has dementia and is a very poor historian. The patient was admitted for workup of his hematuria and treatment. The Sarmiento catheter was removed on 07/07/2018 and the patient has been voiding and his urine is now clear and the postvoid residual has ranged between 15-25 mL. We will continue him on the tamsulosin and finasteride and the cefepime. The urine culture did grow gram-positive cocci. The urine cytology showed no malignant cells. If he continues to have clear urine and his postvoid residual remains low then he may be discharged back to the halfway facility. SUKHWINDER SIFUENTES MD Jul 08, 2018 19:20
[2018-07-08] MEDS ORDERED: CHLORPROMAZINE 25 MG INJ IM PRN (20:30)
[2018-07-08] MEDS ORDERED: OLANZAPINE 5 MG TAB PO PRN (20:30)
[2018-07-08] MEDS: TAMSULOSIN (SR) 0.4 MG CAP PO SCH (20:53)
[2018-07-08] MEDS: ATORVASTATIN 20 MG TAB PO SCH (20:53)
[2018-07-08 20:57] VITALS: BP 160/88; PULSE 92; RESP 16
[2018-07-08] MEDS: OLANZAPINE 2.5 MG TAB PO SCH (22:06)
[2018-07-09 02:30] VITALS: BP 136/91; PULSE 87; RESP 18
[2018-07-09] MEDS: PANTOPRAZOLE (EC) 40 MG TAB PO SCH (06:39)
[2018-07-09 08:29] VITALS: BP 107/62; PULSE 83; RESP 16
[2018-07-09] MEDS: CEFEPIME 1GM/50 ML (PMX) 50 ML IVPB SCH ×2 (08:34→22:08)
[2018-07-09] MEDS: DUTASTERIDE 0.5 MG CAP PO SCH (08:35)
[2018-07-09] MEDS: MEMANTINE 10 MG TAB PO SCH (08:35)
[2018-07-09] MEDS: OLANZAPINE 2.5 MG TAB PO SCH ×3 (08:35→22:07)
[2018-07-09] MEDS: ESCITALOPRAM 10 MG TAB PO SCH (08:36)
[2018-07-09] MEDS: DONEPEZIL 10 MG TAB PO SCH (08:36)
[2018-07-09] MEDS: FERROUS SULFATE (EC) 325 MG TAB PO SCH (08:36)
[2018-07-09] MEDS: CHOLECALCIFEROL 400 UNITS TAB PO SCH (08:36)
[2018-07-09 10:21] VITALS: BP 119/65; PULSE 68
[2018-07-09] MEDS: BENAZEPRIL 40 MG TAB PO SCH (10:21)
[2018-07-09 15:08] VITALS: BP 128/66; PULSE 76; RESP 16
[2018-07-09 16:25] VITALS: BP 97/55; PULSE 79; RESP 18
--- NOTE | 2018-07-09 19:55 | CONS ---
Consult Date/Type/Reason Admit Date/Time Jul 01, 2018 at 11:23 Initial Consult Date 07/01/18 Type of Consultation: Urology Reason for Consultation Hematuria Requesting Provider: MARTA MCGUIRE MD Date/Time of Note DATE: 07/09/18 TIME: 19:52 Subjective Patient is now resting and has been comfortable as per the nurses reports Objective Vitals Vital Signs Date Temp Pulse Resp B/P (MAP) Pulse Ox O2 O2 Flow FiO2 Time Delivery Rate 07/09/18 98.2 79 18 97/55 (69) 91 Room Air 16:25 Intake and Output 07/08/18 07/08/18 07/09/18 1515:00 23:00 07:00 IntakeIntake Total 750 ml 450 ml OutputOutput Total 400 ml BalanceBalance 350 ml 450 ml Exam He has been voiding and the urine is clear and his postvoid residual about 10 m L. Results/Medications Result Diagram: 07/09/18 0701 07/09/18 0701 Results 24 hrs Laboratory Tests Test 07/09/18 04:15 07/09/18 07:01 Urine Color YELLOW Urine Clarity CLEAR Urine pH 6.0 Urine Specific [place] 1.008 Urine Ketones NEGATIVE Urine Nitrite NEGATIVE Urine Bilirubin NEGATIVE Urine Urobilinogen NEGATIVE Urine Leukocyte Esterase NEGATIVE Urine Microscopic RBC 61 H Urine Microscopic WBC 2 Urine Bacteria FEW A Urine Hemoglobin 3+ H Urine Glucose NEGATIVE Urine Total Protein 1+ H White Blood Count 3.7 L Red Blood Count 4.84 Hemoglobin 12.9 L Hematocrit 41.4 L Mean Corpuscular Volume 85.5 Mean Corpuscular Hemoglobin 26.7 L Mean Corpuscular Hemoglobin Concent 31.2 L Red Cell Distribution Width 17.0 H Platelet Count 185 # Mean Platelet Volume 10.1 Immature Granulocytes % 1.600 H Neutrophils % 42.0 Lymphocytes % 34.7 Monocytes % 20.9 H Eosinophils % 0.5 Basophils % 0.3 Nucleated Red Blood Cells % 0.0 Immature Granulocytes # 0.060 H Neutrophils # 1.6 Lymphocytes # 1.3 Monocytes # 0.8 Eosinophils # 0.0 Basophils # 0.0 Nucleated Red Blood Cells # 0.0 Sodium Level 143 Potassium Level 4.2 Chloride Level 100 Carbon Dioxide Level 30 Anion Gap 13 Ammonia < 9 L Thyroid Stimulating Hormone (TSH) 0.611 Home Meds Reported Medications Pantoprazole* (Protonix*) 40 Mg Tablet., 40 MG PO DAILY, TAB 07/01/18 Ferrous Sulfate* (Ferrous Sulfate*) 325 Mg Tabec, 325 MG PO DAILY, TAB 07/01/18 Aspirin (Low Dose Aspirin) 81 Mg Tablet.dr, 81 MG PO DAILY, #30 TAB 07/01/18 Simvastatin* (Zocor*) 40 Mg Tablet, 40 MG PO QHS, #30 TAB 05/13/18 Risperidone* (Risperdal*) 1 Mg Tablet, 0.5 MG PO DAILY, TAB 05/13/18 Memantine* (Namenda*) 10 Mg Tablet, 10 MG PO DAILY, #30 TAB 05/13/18 Benazepril Hcl* (Lotensin*) 40 Mg Tablet, 40 MG PO DAILY, #30 TAB HOLD FOR SBP<110 OR [place]<60 05/13/18 Escitalopram Oxalate* (Lexapro*) 5 Mg Tablet, 5 MG PO Q OTHER DAY, #30 TAB 05/13/18 Tamsulosin Hcl* (Flomax*) 0.4 Mg Cap.er.24h, 0.4 MG PO HS, CAP 05/13/18 Carvedilol* (Coreg*) 6.25 Mg Tablet, 6.25 MG PO BID, #60 TAB HOLD FOR SBP<110 OR OH<60 05/13/18 Docusate Sodium* (Colace*) 250 Mg Capsule, 250 MG PO TID, #60 CAP 05/13/18 Cholecalciferol* (Vitamin D*) 400 Unit Tablet, 400 UNIT PO DAILY, TAB 05/13/18 Dutasteride* (Avodart*) 0.5 Mg Capsule, 0.5 MG PO DAILY, CAP 05/13/18 Donepezil* (Aricept*) 10 Mg Tablet, 10 MG PO DAILY, TAB 05/13/18 Acetaminophen* (Acetaminophen*) 650 Mg Tablet, 650 MG PO Q6H PRN for PAIN LEVEL 1-01/20, #30 TAB 05/13/18 Medications Current Medications Cefepime HCl 50 ml @ 100 mls/hr Q12 IVPB Last administered on 07/09/18at 08:34; Admin Dose 100 MLS/HR; Start 07/01/18 at 21:00 Acetaminophen (Tylenol Tab) 650 mg Q6H PRN PO PAIN LEVEL 1-01/20 Last admini stered on 07/06/18 02:11; Admin Dose 650 MG; Start 07/01/18 at 17:00 Benazepril HCl (Lotensin) 40 mg DAILY PO Last administered on 07/09/18 10:21; Admin Dose 40 MG; Start 07/02/18 at 09:00 Carvedilol (Coreg) 6.25 mg BID PO Last administered on 07/09/18 08:35; Admin Dose 6.25 MG; Start 07/01/18 at 21:00 Cholecalciferol (Vitamin D) 400 units DAILY PO Last administered on 07/09/18 08:36; Admin Dose 400 UNITS; Start 07/02/18 at 09:00 Donepezil HCl (Aricept) 10 mg DAILY PO Last administered on 07/09/18 08:36; Admin Dose 10 MG; Start 07/02/18 at 09:00 Dutasteride (Avodart) 0.5 mg DAILY PO Last administered on 07/09/18 08:35; Admin Dose 0.5 MG; Start 07/02/18 at 09:00 Escitalopram Oxalate (Lexapro) 5 mg QAM PO Last administered on 07/09/18 08:36; Admin Dose 5 MG; Start 07/02/18 at 09:00 Ferrous Sulfate (Ferrous Sulfate (Ec)) 325 mg DAILY PO Last administered on 07/09/18 08:36; Admin Dose 325 MG; Start 07/02/18 at 09:00 Memantine (Namenda) 10 mg DAILY PO Last administered on 07/09/18 08:35; Admin Dose 10 MG; Start 07/02/18 at 09:00 Pantoprazole (Protonix Tab) 40 mg DAILY@0600 PO Last administered on 07/09/18 06:39; Admin Dose 40 MG; Start 07/02/18 at 06:00 Tamsulosin HCl (Flomax) 0.4 mg HS PO Last administered on 07/08/18 20:53; Admin Dose 0.4 MG; Start 07/01/18 at 21:00 Atorvastatin Calcium (Lipitor) 20 mg QHS PO Last administered on 07/08/18 20:53; Admin Dose 20 MG; Start 07/01/18 at 21:00 Tramadol HCl (Ultram) 50 mg Q6H PRN PO MODERATE PAIN LEVEL 4-6 Last a dministered on 07/07/18at 00:40; Admin Dose 50 MG; Start 07/04/18 at 15:30 Olanzapine (Zyprexa) 2.5 mg TID PO Last administered on 07/09/18at 12:11; Admin Dose 2.5 MG; Start 07/08/18 at 22:00 Olanzapine (Zyprexa) 5 mg BID PRN PO MODERATE AGITATION ; Start 07/08/18 at 20:30 Chlorpromazine (Thorazine) 25 mg DAILY PRN IM SEVERE AGITATION ; Start 07/08/18 at 20:30 Assessment/Plan Hospital Course (Demo Recall) 82-year-old male resident of a [facility] facility has been having gross hematuria. The patient himself has dementia and is a very poor historian. The patient was admitted for workup of his hematuria and treatment. The Sarmiento catheter was removed on 07/07/2018 and the patient has been voiding and his urine is now clear and the postvoid residual has ranged between 15-25 mL. We will continue him on the tamsulosin and finasteride and the cefepime. The urine culture did grow gram-positive cocci. The urine cytology showed no malignant cells. he continues to have clear urine and his postvoid residual remains low therefore he may be discharged back to the [facility] facility. SUKHWINDER SIFUENTES MD Jul 09, 2018 19:55
--- NOTE | 2018-07-09 20:17 | PN ---
Date/Time of Note Date/Time of Note DATE: 07/09/18 TIME: 20:17 Assessment/Plan VTE Prophylaxis Risk score (from Ns)>0 risk: 4 SCD applied (from Nsg): Yes Lines/Catheters IV Catheter Type (from Nrs): [place] Urinary Cath still in place: No Assessment/Plan Assessment/Plan - Hematuria, continue Sarmiento catheter dcd -Dr. Dolan is following in urology consultation. Urine cytology negative for malignancy. - Benign prostatic hypertrophy. Continue Flomax and Proscar. - Hypertension. Continue Lotensin. - Dementia with behavioral disturbance. Continue Aricept, Namenda, and Risperdal. - Depression. Continue Lexapro. Further recommendation will depend on patient's hospital course. Plan of care d iscussed with Dr. Becker. Result Diagram: 07/09/18 0701 07/09/18 0701 Results 24hrs Laboratory Tests Test 07/09/18 04:15 07/09/18 07:01 Urine Color YELLOW Urine Clarity CLEAR Urine pH 6.0 Urine Specific [place] 1.008 Urine Ketones NEGATIVE Urine Nitrite NEGATIVE Urine Bilirubin NEGATIVE Urine Urobilinogen NEGATIVE Urine Leukocyte Esterase NEGATIVE Urine Microscopic RBC 61 H Urine Microscopic WBC 2 Urine Bacteria FEW A Urine Hemoglobin 3+ H Urine Glucose NEGATIVE Urine Total Protein 1+ H White Blood Count 3.7 L Red Blood Count 4.84 Hemoglobin 12.9 L Hematocrit 41.4 L Mean Corpuscular Volume 85.5 Mean Corpuscular Hemoglobin 26.7 L Mean Corpuscular Hemoglobin Concent 31.2 L Red Cell Distribution Width 17.0 H Platelet Count 185 # Mean Platelet Volume 10.1 Immature Granulocytes % 1.600 H Neutrophils % 42.0 Lymphocytes % 34.7 Monocytes % 20.9 H Eosinophils % 0.5 Basophils % 0.3 Nucleated Red Blood Cells % 0.0 Immature Granulocytes # 0.060 H Neutrophils # 1.6 Lymphocytes # 1.3 Monocytes # 0.8 Eosinophils # 0.0 Basophils # 0.0 Nucleated Red Blood Cells # 0.0 Sodium Level 143 Potassium Level 4.2 Chloride Level 100 Carbon Dioxide Level 30 Anion Gap 13 Ammonia < 9 L Thyroid Stimulating Hormone (TSH) 0.611 Exam/Review of Systems Exam Vitals Vital Signs Date Temp Pulse Resp B/P (MAP) Pulse Ox O2 O2 Flow FiO2 Time Delivery Rate 07/09/18 98.2 79 18 97/55 (37) 91 Room Air 16:25 Intake and Output 07/08/18 07/08/18 07/09/18 1414:59 22:59 06:59 IntakeIntake Total 750 ml 450 ml OutputOutput Total 400 ml BalanceBalance 350 ml 450 ml Results Results 24hrs Laboratory Tests Test 07/09/18 04:15 07/09/18 07:01 Urine Color YELLOW Urine Clarity CLEAR Urine pH 6.0 Urine Specific [place] 1.008 Urine Ketones NEGATIVE Urine Nitrite NEGATIVE Urine Bilirubin NEGATIVE Urine Urobilinogen NEGATIVE Urine Leukocyte Esterase NEGATIVE Urine Microscopic RBC 61 H Urine Microscopic WBC 2 Urine Bacteria FEW A Urine Hemoglobin 3+ H Urine Glucose NEGATIVE Urine Total Protein 1+ H White Blood Count 3.7 L Red Blood Count 4.84 Hemoglobin 12.9 L Hematocrit 41.4 L Mean Corpuscular Volume 85.5 Mean Corpuscular Hemoglobin 26.7 L Mean Corpuscular Hemoglobin Concent 31.2 L Red Cell Distribution Width 17.0 H Platelet Count 185 # Mean Platelet Volume 10.1 Immature Granulocytes % 1.600 H Neutrophils % 42.0 Lymphocytes % 34.7 Monocytes % 20.9 H Eosinophils % 0.5 Basophils % 0.3 Nucleated Red Blood Cells % 0.0 Immature Granulocytes # 0.060 H Neutrophils # 1.6 Lymphocytes # 1.3 Monocytes # 0.8 Eosinophils # 0.0 Basophils # 0.0 Nucleated Red Blood Cells # 0.0 Sodium Level 143 Potassium Level 4.2 Chloride Level 100 Carbon Dioxide Level 30 Anion Gap 13 Ammonia < 9 L Thyroid Stimulating Hormone (TSH) 0.611 Medications Medication Current Medications Cefepime HCl 50 ml @ 100 mls/hr Q12 IVPB Last administered on 07/09/18at 08:34; Admin Dose 100 MLS/HR; Start 07/01/18 at 21:00 Acetaminophen (Tylenol Tab) 650 mg Q6H PRN PO PAIN LEVEL 1-1010 Last administered on 07/06/18at 02:11; Admin Dose 650 MG; Start 07/01/18 at 17:00 Benazepril HCl (Lotensin) 40 mg DAILY PO Last administered on 07/09/18 10:21; Admin Dose 40 MG; Start 07/02/18 at 09:00 Carvedilol (Coreg) 6.25 mg BID PO Last administered on 07/09/18at 08:35; Admin Dose 6.25 MG; Start 07/01/18 at 21:00 Cholecalciferol (Vitamin D) 400 units DAILY PO Last administered on 07/09/18 08:36; Admin Dose 400 UNITS; Start 07/02/18 at 09:00 Donepezil HCl (Aricept) 10 mg DAILY PO Last administered on 07/09/18 08:36; Admin Dose 10 MG; Start 07/02/18 at 09:00 Dutasteride (Avodart) 0.5 mg DAILY PO Last administered on 07/09/18 08:35; Admin Dose 0.5 MG; Start 07/02/18 at 09:00 Escitalopram Oxalate (Lexapro) 5 mg QAM PO Last administered on 07/09/18 08 :36; Admin Dose 5 MG; Start 07/02/18 at 09:00 Ferrous Sulfate (Ferrous Sulfate (Ec)) 325 mg DAILY PO Last administered on 07/09/18 08:36; Admin Dose 325 MG; Start 07/02/18 at 09:00 Memantine (Namenda) 10 mg DAILY PO Last administered on 07/09/18 08:35; Admin Dose 10 MG; Start 07/02/18 at 09:00 Pantoprazole (Protonix Tab) 40 mg DAILY@0600 PO Last administered on 07/09/18 06:39; Admin Dose 40 MG; Start 07/02/18 at 06:00 Tamsulosin HCl (Flomax) 0.4 mg HS PO Last administered on 07/08/18 20:53; Admin Dose 0.4 MG; Start 07/01/18 at 21:00 Atorvastatin Calcium (Lipitor) 20 mg QHS PO Last administered on 07/08/18 20:53; Admin Dose 20 MG; Start 07/01/18 at 21:00 Tramadol HCl (Ultram) 50 mg Q6H PRN PO MODERATE PAIN LEVEL 4-6 Last administered on 07/07/18 00:40; Admin Dose 50 MG; Start 07/04/18 at 15:30 Olanzapine (Zyprexa) 2.5 mg TID PO Last administered on 07/09/18 12:11; Admin Dose 2.5 MG; Start 07/08/18 at 22:00 Olanzapine (Zyprexa) 5 mg BID PRN PO MODERATE AGITATION ; Start 07/08/18 at 20:30 Chlorpromazine (Thorazine) 25 mg DAILY PRN IM SEVERE AGITATION ; Start 07/08/18 at 20:30 FROYLAN ALVAREZ Jul 09, 2018 20:17
[2018-07-09 20:50] VITALS: BP 106/61; PULSE 84; RESP 18
[2018-07-09] MEDS: TAMSULOSIN (SR) 0.4 MG CAP PO SCH (22:07)
[2018-07-09] MEDS: ATORVASTATIN 20 MG TAB PO SCH (22:07)
[2018-07-10 02:00] VITALS: BP 105/62; PULSE 85; RESP 18
[2018-07-10] MEDS: PANTOPRAZOLE (EC) 40 MG TAB PO SCH (05:28)
[2018-07-10 08:00] VITALS: BP 138/78; PULSE 74; RESP 18
[2018-07-10] MEDS: ESCITALOPRAM 10 MG TAB PO SCH (09:19)
[2018-07-10] MEDS: DUTASTERIDE 0.5 MG CAP PO SCH (09:19)
[2018-07-10] MEDS: MEMANTINE 10 MG TAB PO SCH (09:19)
[2018-07-10] MEDS: CHOLECALCIFEROL 400 UNITS TAB PO SCH (09:20)
[2018-07-10] MEDS: BENAZEPRIL 40 MG TAB PO SCH (09:20)
[2018-07-10] MEDS: DONEPEZIL 10 MG TAB PO SCH (09:20)
[2018-07-10] MEDS: CEFEPIME 1GM/50 ML (PMX) 50 ML IVPB SCH ×2 (09:21→20:49)
[2018-07-10] MEDS: OLANZAPINE 2.5 MG TAB PO SCH ×3 (09:21→20:49)
[2018-07-10] MEDS: FERROUS SULFATE (EC) 325 MG TAB PO SCH (10:26)
--- NOTE | 2018-07-10 11:10 | PN ---
Date/Time of Note Date/Time of Note DATE: 07/10/18 TIME: 11:08 Assessment/Plan VTE Prophylaxis Risk score (from Nsg)>0 risk: 4 SCD applied (from Nsg): Yes Lines/Catheters IV Catheter Type (from Nrs): Peripheral IV Urinary Cath still in place: No Assessment/Plan Assessment/Plan - Hematuria, continue Sarmiento catheter dcd - NO HEMATURIA -Dr. Dolan is following in urology consultation. Urine cytology negative for malignancy. - Benign prostatic hypertrophy. Continue Flomax and Proscar. - Hypertension. Continue Lotensin. - Dementia with behavioral disturbance. Continue Aricept, Namenda, and Risperdal. - Depression. Continue Lexapro. Further recommendation will depend on patient's hospital course. Plan of care discussed with Dr. Becker. Result Diagram: 07/10/18 0554 07/10/18 0554 Results 24hrs Laboratory Tests Test 07/10/18 05:54 White Blood Count 3.9 L Red Blood Count 4.73 Hemoglobin 12.6 L Hematocrit 40.6 L Mean Corpuscular Volume 85.8 Mean Corpuscular Hemoglobin 26.6 L Mean Corpuscular Hemoglobin Concent 31.0 L Red Cell Distribution Width 17.3 H Platelet Count 193 Mean Platelet Volume 10.3 Immature Granulocytes % 1.800 H Neutrophils % 43.9 Lymphocytes % 35.9 Monocytes % 18.1 H Eosinophils % 0.3 Basophils % 0.0 Nucleated Red Blood Cells % 0.0 Immature Granulocytes # 0.070 H Neutrophils # 1.7 Lymphocytes # 1.4 Monocytes # 0.7 Eosinophils # 0.0 Basophils # 0.0 Nucleated Red Blood Cells # 0.0 Sodium Level 144 Potassium Level 4.4 Chloride Level 105 Carbon Dioxide Level 32 H Anion Gap 7 Blood Urea Nitrogen 16 Creatinine 0.85 Est Glomerular Filtrat Rate mL/min Glucose Level 115 Calcium Level 9.6 Exam/Review of Systems Exam Vitals Vital Signs Date Temp Pulse Resp B/P (MAP) Pulse Ox O2 O2 Flow FiO2 Time Delivery Rate 07/10/18 97.9 74 18 138/78 97 08:00 (98) 07/09/18 Room Air 16:25 Intake and Output 07/09/18 07/09/18 07/10/18 1515:00 23:00 07:00 IntakeIntake Total 1180 ml 100 ml 2200 ml OutputOutput Total 675 ml 400 ml BalanceBalance 505 ml -300 ml 2200 ml Constitutional: alert, well developed Psych: nl mood/affect Eyes: nl lids, nl sclera ENMT: nl external ears & nose Neck: non-tender Respiratory: clear to auscultation Cardiovascular: nl pulses Gastrointestinal: soft, non-tender Musculoskeletal: nl extremities to inspection Extremities: normal pulses Neurological: nl mental status Results Results 24hrs Laboratory Tests Test 07/10/18 05:54 White Blood Count 3.9 L Red Blood Count 4.73 Hemoglobin 12.6 L Hematocrit 40.6 L Mean Corpuscular Volume 85.8 Mean Corpuscular Hemoglobin 26.6 L Mean Corpuscular Hemoglobin Concent 31.0 L Red Cell Distribution Width 17.3 H Platelet Count 193 Mean Platelet Volume 10.3 Immature Granulocytes % 1.800 H Neutrophils % 43.9 Lymphocytes % 35.9 Monocytes % 18.1 H Eosinophils % 0.3 Basophils % 0.0 Nucleated Red Blood Cells % 0.0 Immature Granulocytes # 0.070 H Neutrophils # 1.7 Lymphocytes # 1.4 Monocytes # 0.7 Eosinophils # 0.0 Basophils # 0.0 Nucleated Red Blood Cells # 0.0 Sodium Level 144 Potassium Level 4.4 Chloride Level 105 Carbon Dioxide Level 32 H Anion Gap 7 Blood Urea Nitrogen 16 Creatinine 0.85 Est Glomerular Filtrat Rate mL/min Glucose Level 115 Calcium Level 9.6 Medications Medication Current Medications Cefepime HCl 50 ml @ 100 mls/hr Q12 IVPB Last administered on 07/10/18at 09:21; Admin Dose 100 MLS/HR; Start 07/01/18 at 21:00 Acetaminophen (Tylenol Tab) 650 mg Q6H PRN PO PAIN LEVEL 1-10/10 Last administered on 07/06/18at 02:11; Admin Dose 650 MG; Start 07/01/18 at 17:00 Benazepril HCl (Lotensin) 40 mg DAILY PO Last administered on 07/10/18at 09:20; Admin Dose 40 MG; Start 07/02/18 at 09:00 Carvedilol (Coreg) 6.25 mg BID PO Last administered on 07/10/18at 09:20; Admin Dose 6.25 MG; Start 07/01/18 at 21:00 Cholecalciferol (Vitamin D) 400 units DAILY PO Last administered on 07/10/18 09:20; Admin Dose 400 UNITS; Start 07/02/18 at 09:00 Donepezil HCl (Aricept) 10 mg DAILY PO Last administered on 07/10/18 09:20; Admin Dose 10 MG; Start 07/02/18 at 09:00 Dutasteride (Avodart) 0.5 mg DAILY PO Last administered on 07/10/18 09:19; Admin Dose 0.5 MG; Start 07/02/18 at 09:00 Escitalopram Oxalate (Lexapro) 5 mg QAM PO Last administered on 07/10/18 09:19; Admin Dose 5 MG; Start 07/02/18 at 09:00 Ferrous Sulfate (Ferrous Sulfate (Ec)) 325 mg DAILY PO Last administered on 07/10/18 10:26; Admin Dose 325 MG; Start 07/02/18 at 09:00 Memantine (Namenda) 10 mg DAILY PO Last administered on 07/10/18 09:19; Admin Dose 10 MG; Start 07/02/18 at 09:00 Pantoprazole (Protonix Tab) 40 mg DAILY@0600 PO Last administered on 07/10/18 05:28; Admin Dose 40 MG; Start 07/02/18 at 06:00 Tamsulosin HCl (Flomax) 0.4 mg HS PO Last administered on 07/09/18 22:07; Admin Dose 0.4 MG; Start 07/01/18 at 21:00 Atorvastatin Calcium (Lipitor) 20 mg QHS PO Last administered on 07/09/18 22:07; Admin Dose 20 MG; Start 07/01/18 at 21:00 Tramadol HCl (Ultram) 50 mg Q6H PRN PO MODERATE PAIN LEVEL 4-6 Last administered on 07/07/18 00:40; Admin Dose 50 MG; Start 07/04/18 at 15:30 Olanzapine (Zyprexa) 2.5 mg TID PO Last administered on 07/10/18 09:21; Admin Dose 2.5 MG; Start 07/08/18 at 22:00 Olanzapine (Zyprexa) 5 mg BID PRN PO MODERATE AGITATION ; Start 07/08/18 at 20:30 Chlorpromazine (Thorazine) 25 mg DAILY PRN IM SEVERE AGITATION ; Start 07/08/18 at 20:30 FROYLAN ALVAREZ Jul 10, 2018 11:10
--- NOTE | 2018-07-10 12:26 | CONS ---
Consult Date/Type/Reason Admit Date/Time Jul 01, 2018 at 11:23 Initial Consult Date 07/01/18 Type of Consultation: Urology Reason for Consultation Hematuria Requesting Provider: MARTA MCGUIRE MD Date/Time of Note DATE: 07/10/18 TIME: 12:23 Subjective Patient states that he is feeling well and has no problem urinating. Objective Vitals Vital Signs Date Temp Pulse Resp B/P (MAP) Pulse Ox O2 O2 Flow FiO2 Time Delivery Rate 07/10/18 97.9 74 18 138/78 97 08:00 (98) 07/09/18 Room Air 16:25 Intake and Output 07/09/18 07/09/18 07/10/18 1414:59 22:59 06:59 IntakeIntake Total 1180 ml 100 ml 2200 ml OutputOutput Total 675 ml 400 ml BalanceBalance 505 ml -300 ml 2200 ml Exam Patient is voiding clear urine. He no longer has hematuria. The postvoid residual has been low. Results/Medications Result Diagram: 07/10/18 0554 07/10/18 0554 Results 24 hrs Laboratory Tests Test 07/10/18 05:54 White Blood Count 3.9 L Red Blood Count 4.73 Hemoglobin 12.6 L Hematocrit 40.6 L Mean Corpuscular Volume 85.8 Mean Corpuscular Hemoglobin 26.6 L Mean Corpuscular Hemoglobin Concent 31.0 L Red Cell Distribution Width 17.3 H Platelet Count 193 Mean Platelet Volume 10.3 Immature Granulocytes % 1.800 H Neutrophils % 43.9 Lymphocytes % 35.9 Monocytes % 18.1 H Eosinophils % 0.3 Basophils % 0.0 Nucleated Red Blood Cells % 0.0 Immature Granulocytes # 0.070 H Neutrophils # 1.7 Lymphocytes # 1.4 Monocytes # 0.7 Eosinophils # 0.0 Basophils # 0.0 Nucleated Red Blood Cells # 0.0 Sodium Level 144 Potassium Level 4.4 Chloride Level 105 Carbon Dioxide Level 32 H Anion Gap 7 Blood Urea Nitrogen 16 Creatinine 0.85 Est Glomerular Filtrat Rate mL/min Glucose Level 115 Calcium Level 9.6 Home Meds Reported Medications Pantoprazole* (Protonix*) 40 Mg Tablet.dr, 40 MG PO DAILY, TAB 07/01/18 Ferrous Sulfate* (Ferrous Sulfate*) 325 Mg Tabec, 325 MG PO DAILY, TAB 07/01/18 Aspirin (Low Dose Aspirin) 81 Mg Tablet.dr, 81 MG PO DAILY, #30 TAB 07/01/18 Simvastatin* (Zocor*) 40 Mg Tablet, 40 MG PO QHS, #30 TAB 05/13/18 Risperidone* (Risperdal*) 1 Mg Tablet, 0.5 MG PO DAILY, TAB 05/13/18 Memantine* (Namenda*) 10 Mg Tablet, 10 MG PO DAILY, #30 TAB 05/13/18 Benazepril Hcl* (Lotensin*) 40 Mg Tablet, 40 MG PO DAILY, #30 TAB HOLD FOR SBP<110 OR [place]<60 05/13/18 Escitalopram Oxalate* (Lexapro*) 5 Mg Tablet, 5 MG PO Q OTHER DAY, #30 TAB 05/13/18 Tamsulosin Hcl* (Flomax*) 0.4 Mg Cap.er.24h, 0.4 MG PO HS, CAP 05/13/18 Carvedilol* (Coreg*) 6.25 Mg Tablet, 6.25 MG PO BID, #60 TAB HOLD FOR SBP<110 OR [place]<60 05/13/18 Docusate Sodium* (Colace*) 250 Mg Capsule, 250 MG PO TID, #60 CAP 05/13/18 Cholecalciferol* (Vitamin D*) 400 Unit Tablet, 400 UNIT PO DAILY, TAB 05/13/18 Dutasteride* (Avodart*) 0.5 Mg Capsule, 0.5 MG PO DAILY, CAP 05/13/18 Donepezil* (Aricept*) 10 Mg Tablet, 10 MG PO DAILY, TAB 05/13/18 Acetaminophen* (Acetaminophen*) 650 Mg Tablet, 650 MG PO Q6H PRN for PAIN LEVEL 1-01/20, #30 TAB 05/13/18 Medications Current Medications Cefepime HCl 50 ml @ 100 mls/hr Q12 IVPB Last administered on 07/10/18at 09:21; Admin Dose 100 MLS/HR; Start 07/01/18 at 21:00 Acetaminophen (Tylenol Tab) 650 mg Q6H PRN PO PAIN LEVEL 1-1010 Last administered on 07/06/18at 02:11; Admin Dose 650 MG; Start 07/01/18 at 17:00 Benazepril HCl (Lotensin) 40 mg DAILY PO Last administered on 07/10/18 09:20; Admin Dose 40 MG; Start 07/02/18 at 09:00 Carvedilol (Coreg) 6.25 mg BID PO Last administered on 07/10/18 09:20; Admin Dose 6.25 MG; Start 07/01/18 at 21:00 Cholecalciferol (Vitamin D) 400 units DAILY PO Last administered on 07/10/18 09:20; Admin Dose 400 UNITS; Start 07/02/18 at 09:00 Donepezil HCl (Aricept) 10 mg DAILY PO Last administered on 07/10/18 09:20; Admin Dose 10 MG; Start 07/02/18 at 09:00 Dutasteride (Avodart) 0.5 mg DAILY PO Last administered on 07/10/18 09:19; Admin Dose 0.5 MG; Start 07/02/18 at 09:00 Escitalopram Oxalate (Lexapro) 5 mg QAM PO Last administered on 07/10/18 09:19; Admin Dose 5 MG; Start 07/02/18 at 09:00 Ferrous Sulfate (Ferrous Sulfate (Ec)) 325 mg DAILY PO Last administered on 07/10/18 10:26; Admin Dose 325 MG; Start 07/02/18 at 09:00 Memantine (Namenda) 10 mg DAILY PO Last administered on 07/10/18 09:19; Admin Dose 10 MG; Start 07/02/18 at 09:00 Pantoprazole (Protonix Tab) 40 mg DAILY@0600 PO Last administered on 07/10/18 05:28; Admin Dose 40 MG; Start 07/02/18 at 06:00 Tamsulosin HCl (Flomax) 0.4 mg HS PO Last administered on 07/09/18 22:07; Admin Dose 0.4 MG; Start 07/01/18 at 21:00 Atorvastatin Calcium (Lipitor) 20 mg QHS PO Last administered on 07/09/18 22:07; Admin Dose 20 MG; Start 07/01/18 at 21:00 Tramadol HCl (Ultram) 50 mg Q6H PRN PO MODERATE PAIN LEVEL 4-6 Last administered on 07/07/18 00:40; Admin Dose 50 MG; Start 07/04/18 at 15:30 Olanzapine (Zyprexa) 2.5 mg TID PO Last administered on 07/10/18at 09:21; Admin Dose 2.5 MG; Start 07/08/18 at 22:00 Olanzapine (Zyprexa) 5 mg BID PRN PO MODERATE AGITATION ; Start 07/08/18 at 20:30 Chlorpromazine (Thorazine) 25 mg DAILY PRN IM SEVERE AGITATION ; Start 07/08/18 at 20:30 Assessment/Plan Hospital Course (Demo Recall) 82-year-old male resident of a [facility] facility has been having gross hematuria. The patient himself has dementia and is a very poor historian. The patient was admitted for workup of his hematuria and treatment. The Sarmiento catheter was removed on 07/07/2018 and the patient has been voiding and his urine is now clear and the postvoid residual is low. We will continue him on the tamsulosin and finasteride. The urine culture did grow gram-positive cocci. The urine cytology showed no malignant cells. The patient may be discharged back to the [facility] from urological standpoint SUKHWINDER SIFUENTES MD Jul 10, 2018 12:26
[2018-07-10 14:00] VITALS: BP 140/74; PULSE 75; RESP 18
[2018-07-10 19:46] VITALS: BP 105/58; PULSE 70; RESP 20
[2018-07-10] MEDS: ATORVASTATIN 20 MG TAB PO SCH (20:49)
[2018-07-10] MEDS: TAMSULOSIN (SR) 0.4 MG CAP PO SCH (20:49)
[2018-07-11 01:55] VITALS: BP 110/60; PULSE 74; RESP 20
[2018-07-11] MEDS: PANTOPRAZOLE (EC) 40 MG TAB PO SCH (06:08)
[2018-07-11 07:49] VITALS: BP 124/62; PULSE 72; RESP 18
[2018-07-11] MEDS: DUTASTERIDE 0.5 MG CAP PO SCH (09:36)
[2018-07-11] MEDS: BENAZEPRIL 40 MG TAB PO SCH (09:36)
[2018-07-11] MEDS: DONEPEZIL 10 MG TAB PO SCH (09:37)
[2018-07-11] MEDS: CHOLECALCIFEROL 400 UNITS TAB PO SCH (09:37)
[2018-07-11] MEDS: OLANZAPINE 2.5 MG TAB PO SCH ×3 (09:37→21:29)
[2018-07-11] MEDS: ESCITALOPRAM 10 MG TAB PO SCH (09:37)
[2018-07-11] MEDS: MEMANTINE 10 MG TAB PO SCH (09:37)
[2018-07-11] MEDS: FERROUS SULFATE (EC) 325 MG TAB PO SCH (09:37)
[2018-07-11] MEDS: CEFEPIME 1GM/50 ML (PMX) 50 ML IVPB SCH ×2 (09:38→21:29)
--- NOTE | 2018-07-11 10:29 | PN ---
Date/Time of Note Date/Time of Note DATE: 07/11/18 TIME: 10:28 Assessment/Plan VTE Prophylaxis Risk score (from Nsg)>0 risk: 5 SCD applied (from Nsg): Yes Lines/Catheters IV Catheter Type (from Nrsg): [place] Lock Urinary Cath still in place: No Assessment/Plan Assessment/Plan - Hematuria, continue Sarmiento catheter dcd - NO HEMATURIA -Dr. Dolan is following in urology consultation. Urine cytology negative for malignancy. - Benign prostatic hypertrophy. Continue Flomax and Proscar. - Hypertension. Continue Lotensin. - Dementia with behavioral disturbance. Continue Aricept, Namenda, and Risperdal. - Depression. Continue Lexapro. Further recommendation will depend on patient's hospital course. Plan of care discussed with Dr. Becker. Result Diagram: 07/10/18 0554 07/10/18 0554 Exam/Review of Systems Exam Vitals Vital Signs Date Temp Pulse Resp B/P (MAP) Pulse Ox O2 O2 Flow FiO2 Time Delivery Rate 07/11/18 97.6 72 18 124/62 91 Room Air 07:49 (82) Intake and Output 07/10/18 07/10/18 07/11/18 1515:00 23:00 07:00 IntakeIntake Total 690 ml 370 ml BalanceBalance 690 ml 370 ml Medications Medication Current Medications Cefepime HCl 50 ml @ 100 mls/hr Q12 IVPB Last administered on 07/11/18at 09:38; Admin Dose 100 MLS/HR; Start 07/01/18 at 21:00 Acetaminophen (Tylenol Tab) 650 mg Q6H PRN PO PAIN LEVEL 1-10/10 Last administe red on 07/06/18at 02:11; Admin Dose 650 MG; Start 07/01/18 at 17:00 Benazepril HCl (Lotensin) 40 mg DAILY PO Last administered on 07/11/18at 09:36; Admin Dose 40 MG; Start 07/02/18 at 09:00 Carvedilol (Coreg) 6.25 mg BID PO Last administered on 07/11/18 09:37; Admin Dose 6.25 MG; Start 07/01/18 at 21:00 Cholecalciferol (Vitamin D) 400 units DAILY PO Last administered on 07/11/18at 09:37; Admin Dose 400 UNITS; Start 07/02/18 at 09:00 Donepezil HCl (Aricept) 10 mg DAILY PO Last administered on 07/11/18 09:37; Admin Dose 10 MG; Start 07/02/18 at 09:00 Dutasteride (Avodart) 0.5 mg DAILY PO Last administered on 07/11/18 09:36; Admin Dose 0.5 MG; Start 07/02/18 at 09:00 Escitalopram Oxalate (Lexapro) 5 mg QAM PO Last administered on 07/11/18 09:37; Admin Dose 5 MG; Start 07/02/18 at 09:00 Ferrous Sulfate (Ferrous Sulfate (Ec)) 325 mg DAILY PO Last administered on 07/11/18 09:37; Admin Dose 325 MG; Start 07/02/18 at 09:00 Memantine (Namenda) 10 mg DAILY PO Last administered on 07/11/18 09:37; Admin Dose 10 MG; Start 07/02/18 at 09:00 Pantoprazole (Protonix Tab) 40 mg DAILY@0600 PO Last administered on 07/11/18 06:08; Admin Dose 40 MG; Start 07/02/18 at 06:00 Tamsulosin HCl (Flomax) 0.4 mg HS PO Last administered on 07/10/18 20:49; Admin Dose 0.4 MG; Start 07/01/18 at 21:00 Atorvastatin Calcium (Lipitor) 20 mg QHS PO Last administered on 07/10/18 20:49; Admin Dose 20 MG; Start 07/01/18 at 21:00 Tramadol HCl (Ultram) 50 mg Q6H PRN PO MODERATE PAIN LEVEL 4-6 Last admi nistered on 07/07/18 00:40; Admin Dose 50 MG; Start 07/04/18 at 15:30 Olanzapine (Zyprexa) 2.5 mg TID PO Last administered on 07/11/18 09:37; Admin Dose 2.5 MG; Start 07/08/18 at 22:00 Olanzapine (Zyprexa) 5 mg BID PRN PO MODERATE AGITATION ; Start 07/08/18 at 20:30 Chlorpromazine (Thorazine) 25 mg DAILY PRN IM SEVERE AGITATION ; Start 07/08/18 at 20:30 FROYLAN ALVAREZ Jul 11, 2018 10:29
[2018-07-11 14:01] VITALS: BP 106/60; PULSE 75; RESP 20
[2018-07-11 20:21] VITALS: BP 131/72; PULSE 53; RESP 20
[2018-07-11] MEDS: ATORVASTATIN 20 MG TAB PO SCH (21:29)
[2018-07-11] MEDS: TAMSULOSIN (SR) 0.4 MG CAP PO SCH (21:29)
[2018-07-12 02:39] VITALS: BP 134/72; PULSE 89; RESP 20
[2018-07-12] MEDS: PANTOPRAZOLE (EC) 40 MG TAB PO SCH (05:49)
[2018-07-12 07:50] VITALS: BP 127/72; PULSE 76; RESP 18
[2018-07-12] MEDS: DONEPEZIL 10 MG TAB PO SCH (08:59)
[2018-07-12] MEDS: CHOLECALCIFEROL 400 UNITS TAB PO SCH (09:00)
[2018-07-12] MEDS: OLANZAPINE 2.5 MG TAB PO SCH ×3 (09:00→21:02)
[2018-07-12] MEDS: BENAZEPRIL 40 MG TAB PO SCH (09:01)
[2018-07-12] MEDS: MEMANTINE 10 MG TAB PO SCH (09:01)
[2018-07-12] MEDS: DUTASTERIDE 0.5 MG CAP PO SCH (09:01)
[2018-07-12] MEDS: ESCITALOPRAM 10 MG TAB PO SCH (09:01)
[2018-07-12] MEDS: FERROUS SULFATE (EC) 325 MG TAB PO SCH (09:01)
[2018-07-12] MEDS: CEFEPIME 1GM/50 ML (PMX) 50 ML IVPB SCH ×2 (09:02→21:01)
[2018-07-12 13:39] VITALS: BP 98/58; PULSE 92; RESP 18
--- NOTE | 2018-07-12 17:05 | PN ---
Date/Time of Note Date/Time of Note DATE: 07/12/18 TIME: 16:59 Assessment/Plan VTE Prophylaxis Risk score (from Ns)>0 risk: 4 SCD applied (from Ns): Yes SCD contraindicated: patient refusal Pharmacological prophylaxis: NA/contraindicated Pharm contraindication: bleeding Lines/Catheters [facility] Peripheral IV Urinary Cath still in place: No Assessment/Plan Hospital Course Patient is able to void, a low postvoid residual and no hematuria. Patient is a less anxious however still being inappropriate at times per nursing staff. DC planning Assessment/Plan - Hematuria, resolved. Dr. Dolan is following in urology consultation. Urine cytology negative for malignancy. - Benign prostatic hypertrophy. Continue Flomax and Proscar. - Right lower lobe scar versus plate-like atelectasis. Status post evaluation by Dr. Dickerson in pulmonology consultation with recommendation for sleep apnea study as an outpatient. - Hypertension. Continue Lotensin. - Dementia with behavioral disturbance. Continue Aricept, Namenda. Status post evaluation by tele-psychiatry, continues Zyprexa and Thorazine as needed. CT is negative for acute stroke. - Depression. Continue Lexapro. Further recommendation will depend on patient's hospital course. Plan of care discussed with Dr. Becker. Result Diagram: 07/12/18 0614 07/12/18 0614 Results 24hrs Laboratory Tests Test 07/12/18 06:14 White Blood Count 4.4 L Red Blood Count 4.75 Hemoglobin 12.8 L Hematocrit 41.1 L Mean Corpuscular Volume 86.5 Mean Corpuscular Hemoglobin 26.9 L Mean Corpuscular Hemoglobin Concent 31.1 L Red Cell Distribution Width 17.1 H Platelet Count 192 Mean Platelet Volume 10.1 Immature Granulocytes % 1.100 H Neutrophils % 44.8 Lymphocytes % 34.0 Monocytes % 19.9 H Eosinophils % 0.2 Basophils % 0.0 Nucleated Red Blood Cells % 0.0 Immature Granulocytes # 0.050 H Neutrophils # 2.0 Lymphocytes # 1.5 Monocytes # 0.9 Eosinophils # 0.0 Basophils # 0.0 Nucleated Red Blood Cells # 0.0 Sodium Level 143 Potassium Level 4.0 Chloride Level 102 Carbon Dioxide Level 31 Anion Gap 10 Blood Urea Nitrogen 13 Creatinine 0.78 Est Glomerular Filtrat Rate mL/min Glucose Level 111 Calcium Level 9.5 Exam/Review of Systems Exam Vitals Vital Signs Date Temp Pulse Resp B/P (MAP) Pulse Ox O2 O2 Flow FiO2 Time Delivery Rate 07/12/18 98.8 92 18 98/58 (71) 96 Room Air 13:39 Intake and Output 07/11/18 07/11/18 07/12/18 1515:00 23:00 07:00 IntakeIntake Total 50 ml 850 ml 200 ml BalanceBalance 50 ml 850 ml 200 ml Exam Constitutional: alert, oriented Neck: supple Respiratory: clear to auscultation Cardiovascular: nl pulses Gastrointestinal: soft, non-tender Extremities: normal pulses Constitutional: alert, oriented Neck: supple Respiratory: clear to auscultation Cardiovascular: nl pulses Gastrointestinal: soft, non-tender Extremities: normal pulses Neurological: confused Results Results 24hrs Laboratory Tests Test 07/12/18 06:14 White Blood Count 4.4 L Red Blood Count 4.75 Hemoglobin 12.8 L Hematocrit 41.1 L Mean Corpuscular Volume 86.5 Mean Corpuscular Hemoglobin 26.9 L Mean Corpuscular Hemoglobin Concent 31.1 L Red Cell Distribution Width 17.1 H Platelet Count 192 Mean Platelet Volume 10.1 Immature Granulocytes % 1.100 H Neutrophils % 44.8 Lymphocytes % 34.0 Monocytes % 19.9 H Eosinophils % 0.2 Basophils % 0.0 Nucleated Red Blood Cells % 0.0 Immature Granulocytes # 0.050 H Neutrophils # 2.0 Lymphocytes # 1.5 Monocytes # 0.9 Eosinophils # 0.0 Basophils # 0.0 Nucleated Red Blood Cells # 0.0 Sodium Level 143 Potassium Level 4.0 Chloride Level 102 Carbon Dioxide Level 31 Anion Gap 10 Blood Urea Nitrogen 13 Creatinine 0.78 Est Glomerular Filtrat Rate mL/min Glucose Level 111 Calcium Level 9.5 Medications Medication Current Medications Cefepime HCl 50 ml @ 100 mls/hr Q12 IVPB Last administered on 07/12/18at 09:02; Admin Dose 100 MLS/HR; Start 07/01/18 at 21:00 Acetaminophen (Tylenol Tab) 650 mg Q6H PRN PO PAIN LEVEL 1-10/10 Last administered on 07/06/18at 02:11; Admin Dose 650 MG; Start 07/01/18 at 17:00 Benazepril HCl (Lotensin) 40 mg DAILY PO Last administered on 07/12/18at 09:01; Admin Dose 40 MG; Start 07/02/18 at 09:00 Carvedilol (Coreg) 6.25 mg BID PO Last administered on 07/12/18 09:01; Admin Dose 6.25 MG; Start 07/01/18 at 21:00 Cholecalciferol (Vitamin D) 400 units DAILY PO Last administered on 07/12/18 09:00; Admin Dose 400 UNITS; Start 07/02/18 at 09:00 Donepezil HCl (Aricept) 10 mg DAILY PO Last administered on 07/12/18 08:59; Admin Dose 10 MG; Start 07/02/18 at 09:00 Dutasteride (Avodart) 0.5 mg DAILY PO Last administered on 07/12/18 09:01; Admin Dose 0.5 MG; Start 07/02/18 at 09:00 Escitalopram Oxalate (Lexapro) 5 mg QAM PO Last administered on 07/12/18 09:01; Admin Dose 5 MG; Start 07/02/18 at 09:00 Ferrous Sulfate (Ferrous Sulfate (Ec)) 325 mg DAILY PO Last administered on 07/12/18 09:01; Admin Dose 325 MG; Start 07/02/18 at 09:00 Memantine (Namenda) 10 mg DAILY PO Last administered on 07/12/18 09:01; Admin Dose 10 MG; Start 07/02/18 at 09:00 Pantoprazole (Protonix Tab) 40 mg DAILY@0600 PO Last administered on 07/12/18 05:49; Admin Dose 40 MG; Start 07/02/18 at 06:00 Tamsulosin HCl (Flomax) 0.4 mg HS PO Last administered on 07/11/18 21:29; Admin Dose 0.4 MG; Start 07/01/18 at 21:00 Atorvastatin Calcium (Lipitor) 20 mg QHS PO Last administered on 07/11/18 21:29; Admin Dose 20 MG; Start 07/01/18 at 21:00 Tramadol HCl (Ultram) 50 mg Q6H PRN PO MODERATE PAIN LEVEL 4-6 Last administered on 07/07/18 00:40; Admin Dose 50 MG; Start 07/04/18 at 15:30 Olanzapine (Zyprexa) 2.5 mg TID PO Last administered on 4/1/19at 13:53; Admin Dose 2.5 MG; Start 07/08/18 at 22:00 Olanzapine (Zyprexa) 5 mg BID PRN PO MODERATE AGITATION ; Start 07/08/18 at 20:30 Chlorpromazine (Thorazine) 25 mg DAILY PRN IM SEVERE AGITATION ; Start 07/08/18 at 20:30 JOYCE CHOW Jul 12, 2018 17:05
[2018-07-12 20:00] VITALS: BP 146/68; PULSE 75; RESP 17
[2018-07-12] MEDS: TAMSULOSIN (SR) 0.4 MG CAP PO SCH (21:02)
[2018-07-12] MEDS: ATORVASTATIN 20 MG TAB PO SCH (21:02)
[2018-07-13 02:49] VITALS: BP 116/69; PULSE 78; RESP 19
[2018-07-13] MEDS: PANTOPRAZOLE (EC) 40 MG TAB PO SCH (06:29)
[2018-07-13 08:00] VITALS: BP 121/63; PULSE 78; RESP 18
[2018-07-13] MEDS: DONEPEZIL 10 MG TAB PO SCH (09:12)
[2018-07-13] MEDS: CHOLECALCIFEROL 400 UNITS TAB PO SCH (09:12)
[2018-07-13] MEDS: DUTASTERIDE 0.5 MG CAP PO SCH (09:12)
[2018-07-13] MEDS: BENAZEPRIL 40 MG TAB PO SCH (09:12)
[2018-07-13] MEDS: ESCITALOPRAM 10 MG TAB PO SCH (09:12)
[2018-07-13] MEDS: FERROUS SULFATE (EC) 325 MG TAB PO SCH (09:12)
[2018-07-13] MEDS: OLANZAPINE 2.5 MG TAB PO SCH (09:12)
[2018-07-13] MEDS: MEMANTINE 10 MG TAB PO SCH (09:12)
[2018-07-13] MEDS: CEFEPIME 1GM/50 ML (PMX) 50 ML IVPB SCH (09:13)
[2018-07-13 11:55] VITALS: BP 100/57; PULSE 81; RESP 18
--- NOTE | 2018-07-13 20:32 | DS ---
Date/Time of Note Date/Time of Note DATE: 07/13/18 TIME: 20:30 Discharge Summary Admission/Discharge Info Admit Date/Time Jul 01, 2018 at 11:23 Discharge Date/Time Jul 13, 2018 at 13:07 Patient Condition: Stable Hx of Present Illness The patient is an 82-year-old gentleman well known to me from previous several admissions. The patient has history of hypertension, dyslipidemia, benign prostatic hypertrophy, dementia with behavior disturbance, who was recently admitted at [facility] for pancytopenia. 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 Carrera at that time. Echocardiogram had revealed a normal ejection fraction. The patient also has history of benign prostatic hypertrophy. I received a call from long term facility regarding the patient being febrile as well as having gross hematuria. The patient was immediately transferred to [facility] ER. The patient did have a temperature of 100.2 in the ER; however, he was able to maintain his blood pressure and lactic acid level. The patient was given empiric IV antibiotic and is being admitted for further evaluation and management. I requested urine culture to be send from ER prior to giving antibiotics. The patient denies any chest pain or shortness of breath, remains awake and alert. Denies any headache. No history of abdominal pain. No history of leg edema. No history of leg pain. No history of focal weakness. No history of any acute skin rash or any acute joint swelling. No history of any change in vision. No history of cough or sore throat. No history of focal weakness. Hospital Course - Hematuria, resolved. Dr. Dolan is following in urology consultation. Urine cytology negative for malignancy. Patient is able to void, a low postvoid residual and no hematuria. - Benign prostatic hypertrophy. Continue Flomax and Proscar. - Right lower lobe scar versus plate-like atelectasis. Status post evaluation by Dr. Dickerson in pulmonology consultation with recommendation for sleep apnea study as an outpatient. - Hypertension. Continue Lotensin. - Dementia with behavioral disturbance. Continue Aricept, Namenda. Status post evaluation by tele-psychiatry, continues Zyprexa and Thorazine as needed. CT is negative for acute stroke. - Depression. Continue Lexapro. Plan of care discussed with Dr. Becker. Home Meds Reported Medications Pantoprazole* (Protonix*) 40 Mg Tablet.dr, 40 MG PO DAILY, TAB 07/01/18 Ferrous Sulfate* (Ferrous Sulfate*) 325 Mg Tabec, 325 MG PO DAILY, TAB 07/01/18 Aspirin (Low Dose Aspirin) 81 Mg Tablet.dr, 81 MG PO DAILY, #30 TAB 07/01/18 Simvastatin* (Zocor*) 40 Mg Tablet, 40 MG PO QHS, #30 TAB 05/13/18 Risperidone* (Risperdal*) 1 Mg Tablet, 0.5 MG PO DAILY, TAB 05/13/18 Memantine* (Namenda*) 10 Mg Tablet, 10 MG PO DAILY, #30 TAB 05/13/18 Benazepril Hcl* (Lotensin*) 40 Mg Tablet, 40 MG PO DAILY, #30 TAB HOLD FOR SBP<110 OR [place]<60 05/13/18 Escitalopram Oxalate* (Lexapro*) 5 Mg Tablet, 5 MG PO Q OTHER DAY, #30 TAB 05/13/18 Tamsulosin Hcl* (Flomax*) 0.4 Mg Cap.er.24h, 0.4 MG PO HS, CAP 05/13/18 Carvedilol* (Coreg*) 6.25 Mg Tablet, 6.25 MG PO BID, #60 TAB HOLD FOR SBP<110 OR [place]<60 05/13/18 Docusate Sodium* (Colace*) 250 Mg Capsule, 250 MG PO TID, #60 CAP 05/13/18 Cholecalciferol* (Vitamin D*) 400 Unit Tablet, 400 UNIT PO DAILY, TAB 05/13/18 Dutasteride* (Avodart*) 0.5 Mg Capsule, 0.5 MG PO DAILY, CAP 05/13/18 Donepezil* (Aricept*) 10 Mg Tablet, 10 MG PO DAILY, TAB 05/13/18 Acetaminophen* (Acetaminophen*) 650 Mg Tablet, 650 MG PO Q6H PRN for PAIN LEVEL 1-01/20, #30 TAB 05/13/18 Follow-up Plan Discharge to long term facility when bed is available, arrange for a sleep apnea study as an outpatient by PMD. Primary Care Provider Cruz Becker MD Time spent on discharge: > 30 minutes JOYCE CHOW Jul 13, 2018 20:32
== END 2018-07-13 13:07 | DRG 690 ==
LOC: E/R 07:01 → TEL 11:23 → PP2 07-03 03:37 → 5EC 07-09 16:10
PROVIDERS: ADMIT Internal Medicine; ATTEND Internal Medicine
DX: N30.01 Acute cystitis with hematuria (principal); F03.91 Unspecified dementia, unspecified severity, with behavioral disturbance; J98.11 Atelectasis; N40.0 Benign prostatic hyperplasia without lower urinary tract symptoms; J44.9 Chronic obstructive pulmonary disease, unspecified; I10 Essential (primary) hypertension; F29 Unspecified psychosis not due to a substance or known physiological condition; F32.9 Major depressive disorder, single episode, unspecified; E87.6 Hypokalemia; E86.0 Dehydration; G47.30 Sleep apnea, unspecified
CPT/HCPCS: 36415; 70450; 74177; 80048; 80051; 80053; 80061; 81001; 82140; 82270; 84153; 84154; 84443; 85025; 85610; 85730; 87081; 87086; 88104; 88107; J0692; J7030; Q9967

== ENCOUNTER 2018-07-19 06:54 | Inpatient (IN) | payer MEDICARE ==
[~2018-07-19] VITALS: Ht 170.2 cm; Wt 70.0 kg
[~2018-07-19 06:54] MED LIST changes: +ASPI81TA52 PO; +FER325 PO; +PANT40TA3 PO
[2018-07-19 07:19] VITALS: Ht 170.2 cm; Wt 70.0 kg
[2018-07-19] MEDS ORDERED: LIDOCAINE 2% 20 ML UROJET SYRINGE MM ONE (07:30)
--- NOTE | 2018-07-19 08:00 | ERD ---
ER Documentation Chief Complaint Chief Complaint hematuria x 2 weeks HPI 82-year-old gentleman presents from [facility] facility for gross hematuria. The patient had a recent hospitalization and was just discharged 1 week ago for similar. Patient appeared to have negative workup and no evidence of malignancy. Patient denies any pain. He denies any nausea vomiting or diarrhea. No other bleeding or bruising. History somewhat limited given patient's history of dementia. ROS All systems reviewed and are negative except as per history of present illness. Medications Home Meds Reported Medications Acetaminophen* (Tylenol*) 325 Mg Tablet, 650 MG PO Q6H PRN for MILD PAIN LEVEL 1-3, TAB AND FEVER>101F 07/19/18 Hydrocortisone* Topical (Hydrocortisone* Topical) 0.5%-28.35 Gm Cream..g., 1 APPLIC TOP QHS PRN for ITCHING, TUB 07/19/18 Divalproex Sodium* (Depakote ER*) 250 Mg Tabsr, 250 MG PO BID, #30 TAB.SA 07/19/18 Tramadol Hcl* (Ultram*) 50 Mg Tablet, 50 MG PO Q6H PRN for PAIN 5-01/20, TAB 07/19/18 Pantoprazole* (Protonix*) 40 Mg Tablet.dr, 40 MG PO DAILY, TAB 07/01/18 Ferrous Sulfate* (Ferrous Sulfate*) 325 Mg Tabec, 325 MG PO DAILY, TAB 07/01/18 Simvastatin* (Zocor*) 40 Mg Tablet, 40 MG PO QHS, #30 TAB 05/13/18 Risperidone* (Risperdal*) 1 Mg Tablet, 1 MG PO DAILY, TAB 05/13/18 Memantine* (Namenda*) 10 Mg Tablet, 10 MG PO DAILY, #30 TAB 05/13/18 Benazepril Hcl* (Lotensin*) 40 Mg Tablet, 40 MG PO DAILY, #30 TAB HOLD FOR SBP<110 OR DC<60 05/13/18 Escitalopram Oxalate* (Lexapro*) 5 Mg Tablet, 5 MG PO DAILY, #30 TAB 05/13/18 Tamsulosin Hcl* (Flomax*) 0.4 Mg Cap.er.24h, 0.4 MG PO HS, CAP 05/13/18 Carvedilol* (Coreg*) 6.25 Mg Tablet, 6.25 MG PO BID, #60 TAB HOLD FOR SBP<110 OR DC<60 05/13/18 Cholecalciferol* (Vitamin D*) 400 Unit Tablet, 400 UNIT PO DAILY, TAB 05/13/18 Dutasteride* (Avodart*) 0.5 Mg Capsule, 0.5 MG PO DAILY, CAP 05/13/18 Donepezil* (Aricept*) 10 Mg Tablet, 10 MG PO DAILY, TAB 05/13/18 Discontinued Reported Medications Aspirin (Low Dose Aspirin) 81 Mg Tablet.dr, 81 MG PO DAILY, #30 TAB 07/01/18 Docusate Sodium* (Colace*) 250 Mg Capsule, 250 MG PO TID, #60 CAP 05/13/18 Acetaminophen* (Acetaminophen*) 650 Mg Tablet, 650 MG PO Q6H PRN for PAIN LEVEL 1-01/20, #30 TAB 05/13/18 Allergies Allergies: Coded Allergies: No Known Allergy (Unverified , 07/19/18) PMhx/Soc History of Surgery: No Anesthesia Reaction: No Hx Neurological Disorder: Yes (dementia ) Hx Respiratory Disorders: Yes (copd ) Hx Cardiac Disorders: Yes (CHF, HTN ) Hx Psychiatric Problems: Yes (depression, dementia, psychosis ) Hx Miscellaneous Medical Probl: Yes (dementia, depression, bilateral hearing loss, bph) Hx Alcohol Use: No Hx Substance Use: No Hx Tobacco Use: No Smoking Status: Never smoker FmHx Family History: No diabetes Physical Exam Vitals Vital Signs Date Temp Pulse Resp B/P (MAP) Pulse Ox O2 O2 Flow FiO2 Time Delivery Rate 07/19/18 67 15 123/67 97 Room Air 10:30 (85) 07/19/18 68 15 123/70 94 Room Air 09:00 (87) 07/19/18 97.8 74 18 108/67 96 07:19 (81) 07/19/18 98.2 77 15 115/78 96 Room Air 07:07 (90) Physical Exam General: Well developed, well nourished, no acute distress Head: Normocephalic, atraumatic. Eyes: Pupils equally reactive, EOM intact ENT: Moist mucous membranes Neck: Supple, no lymphadenopathy Respiratory: Lungs clear bilaterally, no distress Cardiovascular: RRR, no murmurs, rubs, or gallops Abdominal: Soft, non-tender, non-distended, no peritoneal signs : Deferred MSK: No edema, no unilateral swelling, 5/5 strength Neurologic: Alert and oriented appears at his baseline, moving all extremities, normal speech, no focal weakness, no cerebellar signs Skin: No rash Psych: Normal mood Result Diagram: 07/19/1872407/19/18 0725 Results 24 hrs Laboratory Tests Test 07/19/18 07:25 White Blood Count 3.0 10^3/ul Red Blood Count 4.28 10^6/ul Hemoglobin 11.7 g/dl Hematocrit 36.7 % Mean Corpuscular Volume 85.7 fl Mean Corpuscular Hemoglobin 27.3 pg Mean Corpuscular Hemoglobin Concent 31.9 g/dl Red Cell Distribution Width 16.9 % Platelet Count 127 10^3/UL Mean Platelet Volume 10.4 fl Immature Granulocytes % 1.000 % Neutrophils % 45.9 % Lymphocytes % 34.3 % Monocytes % 18.2 % Eosinophils % 0.3 % Basophils % 0.3 % Nucleated Red Blood Cells % 0.0 /100WBC Immature Granulocytes # 0.030 10^3/ul Neutrophils # 1.4 10^3/ul Lymphocytes # 1.0 10^3/ul Monocytes # 0.6 10^3/ul Eosinophils # 0.0 10^3/ul Basophils # 0.0 10^3/ul Nucleated Red Blood Cells # 0.0 10^3/ul Prothrombin Time 14.1 Sec Prothrombin Time Ratio 1.1 INR International Normalized Ratio 1.08 Activated Partial Thromboplast Time 31.8 Sec Urine Color RED Urine Clarity CLOUDY Urine pH 7.0 Urine Specific [place] 1.012 Urine Ketones NEGATIVE mg/dL Urine Nitrite NEGATIVE mg/dL Urine Bilirubin NEGATIVE mg/dL Urine Urobilinogen NEGATIVE mg/dL Urine Leukocyte Esterase NEGATIVE Miracle/ul Urine Microscopic RBC > 182 /HPF Urine Microscopic WBC > 182 /HPF Urine Bacteria FEW /HPF Urine Hemoglobin 3+ mg/dL Urine Glucose NEGATIVE mg/dL Urine Total Protein 2+ mg/dl Sodium Level 143 mmol/L Potassium Level 4.1 mmol/L Chloride Level 105 mmol/L Carbon Dioxide Level 31 mmol/L Anion Gap 7 Blood Urea Nitrogen 12 mg/dl Creatinine 0.68 mg/dl Est Glomerular Filtrat Rate mL/min mL/min Glucose Level 117 mg/dl Calcium Level 9.4 mg/dl Current Medications Medications Dose Sig/Jones Start Time Status Last (Trade) Ordered Route PRN Stop Time Admin Dose Reason Admin Lidocaine 20 ml ONCE ONCE 07/19/18 DC 07/19/18 (Lidocaine MM 07:30 07/19/18 07:39 2% Urojet) 07:31 Morphine 4 mg ONCE STAT 07/19/18 DC 07/19/18 Sulfate IV 09:26 07/19/18 09:40 (morphine) 09:27 Ondansetron 4 mg ONCE STAT 07/19/18 DC 07/19/18 HCl (Zofran IV 09:26 07/19/18 09:40 Inj) 09:27 Ondansetron 4 mg BRIDGE ORDER 07/19/18 HCl (Zofran PRN IV 10:00 07/20/18 Inj) NAUSEA/VOMITI 09:59 NG 650 mg ER BRIDGE 07/19/18 Acetaminophen PRN PO 10:00 07/20/18 (Tylenol .MILD PAIN 09:59 Tab) 1-3 OR TEMP Procedures/MDM LAB INTERPRETATION: I reviewed the laboratory testing and it shows [no evidence of acute process] MEDICAL DECISION MAKING: Patient with gross hematuria of unclear etiology likely age-related. The patient had a recent workup with negative pathology. Patient does not appear to be obstructed by Sarmiento catheter insertion and irrigation is likely necessary. If the patient has urine that cleared she can be safely discharged with outpatient follow-up. If no clearing the patient may benefit from three-way irrigation and urology consultation. No evidence of systemic coagulopathy. ER COURSE: * Urinalysis consistent with gross hematuria without evidence of infection. Urine culture sent. No indication for antibiotics. The patient had persistent bleeding. * The patient's bleeding persisted without change with irrigation. For this reason patient will benefit from hospitalization. I spoke to Dr. Dolan who agrees. CONSULTATION: Urology, Dr. Dolan DISPOSITION PLAN: Accepting care team and consultations: I discussed the current laboratory data, diagnostic imaging and emergency care provided. Admitting team: Dr. Becker Admitting team indication: Insurance directed Departure Diagnosis: Primary Impression: Hematuria Hematuria type: gross Qualified Codes: R31.0 - Gross hematuria Condition: Stable LESLY PARKS MD Jul 19, 2018 08:00
[2018-07-19] MEDS ORDERED: ONDANSETRON 4 MG INJ IV STA (09:26)
[2018-07-19] MEDS ORDERED: morphine 4 MG/ML VIAL IV STA (09:26)
[2018-07-19] MEDS ORDERED: ACETAMINOPHEN 325 MG TAB PO PRN (10:00)
[2018-07-19] MEDS ORDERED: ONDANSETRON 4 MG INJ IV PRN (10:00)
[2018-07-19] MEDS ORDERED: DIVA-73 PO (10:53)
[2018-07-19] MEDS ORDERED: TRAM50TA PO (10:53)
[2018-07-19] MEDS ORDERED: HYDR28.340 TOP (10:55)
[2018-07-19] MEDS ORDERED: ACET325T33 PO (10:56)
[2018-07-19 11:35] VITALS: BP 136/66; PULSE 69; RESP 18
--- NOTE | 2018-07-19 12:57 | HP ---
Date/Time of Note Date/Time of Note DATE: 07/19/18 TIME: 12:52 Assessment/Plan VTE Prophylaxis SCD applied (from Nsg): Yes Pharmacological prophylaxis: NA/contraindicated Pharm contraindication: bleeding Lines/Catheters IV Catheter Type (from Nrsg): Saline Lock Urinary Cath still in place: Yes Reason Cath still needed: urinary retention, other (indicate) Assessment/Plan Assessment/Plan - Recurrent gross hematuria. Patient started on bladder irrigation after Sarmiento catheter was inserted. Dr. Dolan is asked to see patient in urology consultation. -Anemia of acute blood loss, will continue to monitor H&H, transfuse as needed. - Benign prostatic hypertrophy. Continue Flomax and Proscar. - Hypertension. Continue Lotensin. - Dementia with behavioral disturbance. Continue Aricept, Namenda, Zyprexa and Thorazine as needed. - Depression. Continue Lexapro. Further recommendations based on clinical course. Plan of care discussed with Dr. Becker. Result Diagram: 07/19/18 0725 07/19/18 0725 Results 24hrs Laboratory Tests Test 07/19/18 07:25 White Blood Count 3.0 #L Red Blood Count 4.28 L Hemoglobin 11.7 L Hematocrit 36.7 L Mean Corpuscular Volume 85.7 Mean Corpuscular Hemoglobin 27.3 L Mean Corpuscular Hemoglobin Concent 31.9 L Red Cell Distribution Width 16.9 H Platelet Count 127 #L Mean Platelet Volume 10.4 Immature Granulocytes % 1.000 H Neutrophils % 45.9 Lymphocytes % 34.3 Monocytes % 18.2 H Eosinophils % 0.3 Basophils % 0.3 Nucleated Red Blood Cells % 0.0 Immature Granulocytes # 0.030 Neutrophils # 1.4 L Lymphocytes # 1.0 Monocytes # 0.6 Eosinophils # 0.0 Basophils # 0.0 Nucleated Red Blood Cells # 0.0 Prothrombin Time 14.1 Prothrombin Time Ratio 1.1 INR International Normalized Ratio 1.08 Activated Partial Thromboplast Time 31.8 Urine Color RED Urine Clarity CLOUDY A Urine pH 7.0 Urine Specific [place] 1.012 Urine Ketones NEGATIVE Urine Nitrite NEGATIVE Urine Bilirubin NEGATIVE Urine Urobilinogen NEGATIVE Urine Leukocyte Esterase NEGATIVE Urine Microscopic RBC > 182 H Urine Microscopic WBC > 182 H Urine Bacteria FEW A Urine Hemoglobin 3+ H Urine Glucose NEGATIVE Urine Total Protein 2+ H Sodium Level 143 Potassium Level 4.1 Chloride Level 105 Carbon Dioxide Level 31 Anion Gap 7 Blood Urea Nitrogen 12 Creatinine 0.68 Est Glomerular Filtrat Rate mL/min Glucose Level 117 Calcium Level 9.4 HPI/ROS Admit Date/Time Admit Date/Time Jul 19, 2018 at 09:56 Hx of Present Illness The patient is 82-year-old male known to me from previous admission patient. Patient has extensive medical history including hypertension, osteoporosis, BPH, dementia with behavioral disturbance. Patient was recently admitted for hematuria and it was about followed by Dr. Dolan in urology consultation patient cytology was negative for malignancy. Hematuria resolved and Sarmiento was discontinued patient was able to void and was discharged in stable condition to half-way facility. Patient presented today from half-way facility with gross hematuria. Urinalysis was negative for leukocyte esterase and nitrates. No fever, chills, shortness of breath or chest pain were reported. Sarmiento catheter was inserted with initiation of bladder irrigation. Hemoglobin on admission is 11.7. Patient will be admitted to medical surgical floor for further evaluation and management. ROS 12 point review of system is negative except for what mentioned in HPI PMH/Family/Social Past Medical History Medications Current Medications Ondansetron HCl (Zofran Inj) 4 mg BRIDGE ORDER PRN IV NAUSEA/VOMITING; Start 07/19/18 at 10:00; Stop 07/20/18 at 09:59 Acetaminophen (Tylenol Tab) 650 mg ER BRIDGE PRN PO .MILD PAIN 1-3 OR TEMP; Start 07/19/18 at 10:00; Stop 07/20/18 at 09:59 Coded Allergies: No Known Allergy (Unverified , 07/19/18) Past Surgical History Past Surgical Hx: other (History of prostate surgery for BPH) Family History Significant Family History: no pertinent family hx Social History Patient is a resident of half-way facility Alcohol Use: none Smoking Status: Former smoker Drug Use: none Exam/Review of Systems Vital Signs Vitals Vital Signs Date Temp Pulse Resp B/P (MAP) Pulse Ox O2 O2 Flow FiO2 Time Delivery Rate 07/19/18 98.2 69 18 136/66 96 11:35 (89) 07/19/18 Room Air 11:11 Exam Constitutional: alert, oriented Head: normocephalic Neck: supple Respiratory: clear to auscultation Cardiovascular: nl pulses Gastrointestinal: soft, non-tender Genitourinary - Male: other (Sarmiento catheter with gross hematuria) Musculoskeletal: nl extremities to inspection Extremities: normal pulses Neurological: nl mental status Skin: nl JOYCE Curran Jul 19, 2018 12:56
[2018-07-19] MEDS: morphine 2 MG INJ IV PRN ×2 (13:26→18:31)
[2018-07-19] MEDS ORDERED: HYDROCORTISONE 0.5% 28.35 GM CR TOP PRN (13:30)
[2018-07-19 14:25] VITALS: BP 113/65; PULSE 72; RESP 16
--- NOTE | 2018-07-19 18:38 | CONDCODE ---
Medicare Criteria-> INP to OBS Patient still in hospital: Yes SI/IS Criteria met: Yes Attending MD agrees w/change: Yes Order entered in Pt. record: Yes Medicare Inp->Obs Criteria met: Yes UR Phys Advisor eSign required: Yes I personally scribed for MARTA MCGUIRE MD ([email or web address]) on 07/19/18 at 18:38. Electronically submitted by Kellee Blanco ([email or web address]). MARTA MCGUIRE MD Jul 19, 2018 18:38
--- NOTE | 2018-07-19 18:39 | CONDCODE ---
Medicare Criteria-> INP to OBS Patient still in hospital: Yes SI/IS Criteria met: Yes Attending MD agrees w/change: Yes Order entered in Pt. record: Yes Medicare Inp->Obs Criteria met: Yes UR Phys Advisor eSign required: Yes I personally scribed for MARTA MCGUIRE MD ([email or web address]) on 07/19/18 at 18:39. Electronically submitted by Kellee Blanco ([email or web address]). MARTA MCGUIRE MD Jul 19, 2018 18:39
[2018-07-19 19:14] VITALS: BP 114/56; PULSE 74; RESP 18
--- NOTE | 2018-07-19 19:32 | CONS ---
Assessment/Plan Assessment/Plan Hospital Course (Demo Recall) 82-year-old male has been having recurrent gross hematuria. He was here last months for same problem. Urine cytology was negative at the bladder was irrigated and once the urine was clear we remove the Sarmiento catheter and he was voiding on his own without hematuria patient was discharged to the longterm facility and he returned again today with a gross hematuria. The patient is known to have a large prostate and has been on tamsulosin and finasteride. He has history of dementia. In the emergency room he had a Sarmiento catheter inserted and started on bladder irrigation. However the return was bloody and then the irrigation start going backward and he was having blood clots in the tubing. I told the nurse to stop the irrigation and I came in and inserted a 24 Italian three-way Sarmiento catheter with the balloon inflated with 30 mL of sterile water. Then I did hand irrigate the Sarmiento catheter for about half hour and got all the blood clots out and started him on continuous bladder irrigation that was working very well. Impression: Benign prostatic hypertrophy with bladder outlet obstruction and lower urinary tract symptoms including hematuria. Plan: Keep the Sarmiento catheter in to the continuous bladder irrigation and cath all the clots out then may have to do a transurethral resection of the prostate. If we do not do anything he is comfortable keep coming back and forth was a gross hematuria. Considering his age he will also need cardiac clearance. I have tentatively held a surgical time for Saturday, July 21, 2018 at 1730 p.m. Consultation Date/Type/Reason Admit Date/Time Jul 19, 2018 at 09:56 Date of Consultation: Jul 19, 2018 Type of Consult Urology Reason for Consultation Gross hematuria Requesting Provider: MARTA MCGUIRE MD Date/Time of Note DATE: 07/19/18 TIME: 19:20 Hx of Present Illness 82-year-old male has been having recurrent gross hematuria. He was here last months for same problem. Urine cytology was negative at the bladder was irrigated and once the urine was clear we remove the Sarmiento catheter and he was voiding on his own without hematuria patient was discharged to the longterm facility and he returned again today with a gross hematuria. The patient is known to have a large prostate and has been on tamsulosin and finasteride. He has history of dementia. Constitutional: no complaints Eyes: no complaints ENT: no complaints Respiratory: no complaints Cardiovascular: no complaints; No chest pain Gastrointestinal: no complaints Genitourinary: bleeding, hematuria Musculoskeletal: no complaints Skin: no complaints Neurologic: no complaints Endocrine: no complaints Lymphatic: no complaints Psychological: no complaints Immunologic: no complaints Past Medical History Medical History: hypertension, other (Dementia and behavioral problems. Dyslipidemia) Home Meds Reported Medications Acetaminophen* (Tylenol*) 325 Mg Tablet, 650 MG PO Q6H PRN for MILD PAIN LEVEL 1-3, TAB AND FEVER>101F 07/19/18 Hydrocortisone* Topical (Hydrocortisone* Topical) 0.5%-28.35 Gm Cream..g., 1 APPLIC TOP QHS PRN for ITCHING, TUB 07/19/18 Divalproex Sodium* (Depakote ER*) 250 Mg Tabsr, 250 MG PO BID, #30 TAB.SA 07/19/18 Tramadol Hcl* (Ultram*) 50 Mg Tablet, 50 MG PO Q6H PRN for PAIN 5-10, TAB 07/19/18 Pantoprazole* (Protonix*) 40 Mg Tablet.dr, 40 MG PO DAILY, TAB 07/01/18 Ferrous Sulfate* (Ferrous Sulfate*) 325 Mg Tabec, 325 MG PO DAILY, TAB 07/01/18 Simvastatin* (Zocor*) 40 Mg Tablet, 40 MG PO QHS, #30 TAB 05/13/18 Risperidone* (Risperdal*) 1 Mg Tablet, 1 MG PO DAILY, TAB 05/13/18 Memantine* (Namenda*) 10 Mg Tablet, 10 MG PO DAILY, #30 TAB 05/13/18 Benazepril Hcl* (Lotensin*) 40 Mg Tablet, 40 MG PO DAILY, #30 TAB HOLD FOR SBP<110 OR ND<60 05/13/18 Escitalopram Oxalate* (Lexapro*) 5 Mg Tablet, 5 MG PO DAILY, #30 TAB 05/13/18 Tamsulosin Hcl* (Flomax*) 0.4 Mg Cap.er.24h, 0.4 MG PO HS, CAP 05/13/18 Carvedilol* (Coreg*) 6.25 Mg Tablet, 6.25 MG PO BID, #60 TAB HOLD FOR SBP<110 OR ND<60 05/13/18 Cholecalciferol* (Vitamin D*) 400 Unit Tablet, 400 UNIT PO DAILY, TAB 05/13/18 Dutasteride* (Avodart*) 0.5 Mg Capsule, 0.5 MG PO DAILY, CAP 05/13/18 Donepezil* (Aricept*) 10 Mg Tablet, 10 MG PO DAILY, TAB 05/13/18 Discontinued Reported Medications Aspirin (Low Dose Aspirin) 81 Mg Tablet.dr, 81 MG PO DAILY, #30 TAB 07/01/18 Docusate Sodium* (Colace*) 250 Mg Capsule, 250 MG PO TID, #60 CAP 05/13/18 Acetaminophen* (Acetaminophen*) 650 Mg Tablet, 650 MG PO Q6H PRN for PAIN LEVEL 1-10/10, #30 TAB 05/13/18 Medications Current Medications Morphine Sulfate (morphine) 2 mg Q4H PRN IV SEVERE PAIN LEVEL 7-10 Last administered on 07/19/18at 18:31; Admin Dose 2 MG; Start 07/19/18 at 13:30 Acetaminophen (Tylenol Tab) 650 mg Q6H PRN PO MILD PAIN LEVEL 1-3; Start 07/19/18 at 13:30 Benazepril HCl (Lotensin) 40 mg DAILY PO ; Start 07/20/18 at 09:00 Carvedilol (Coreg) 6.25 mg BID PO ; Start 07/19/18 at 21:00 Cholecalciferol (Vitamin D) 400 units DAILY PO ; Start 07/20/18 at 09:00 Divalproex Sodium (Depakote Er) 250 mg BID PO ; Start 07/19/18 at 21:00 Donepezil HCl (Aricept) 10 mg DAILY PO ; Start 07/20/18 at 09:00 Dutasteride (Avodart) 0.5 mg DAILY PO ; Start 07/20/18 at 09:00 Escitalopram Oxalate (Lexapro) 5 mg DAILY PO ; Start 07/20/18 at 09:00 Ferrous Sulfate (Ferrous Sulfate (Ec)) 325 mg DAILY PO ; Start 07/20/18 at 09:00 Hydrocortisone (Hydrocortisone 0.5% Cr) 1 applic QHS PRN TOP ITCHING; Start 07/19/18 at 13:30 Memantine (Namenda) 10 mg DAILY PO ; Start 07/20/18 at 09:00 Pantoprazole (Protonix Tab) 40 mg DAILY@0600 PO ; Start 07/20/18 at 06:00 Risperidone (Risperdal) 1 mg DAILY PO ; Start 07/20/18 at 09:00 Tamsulosin HCl (Flomax) 0.4 mg HS PO ; Start 07/19/18 at 21:00 Tramadol HCl (Ultram) 50 mg Q6H PRN PO PAIN 5-10/10; Start 07/19/18 at 13:30 Allergies: Coded Allergies: No Known Allergy (Unverified , 07/19/18) Past Surgical History Past Surgical Hx: other (History of prostate surgery for BPH) Family History Significant Family History: no pertinent family hx Social History Alcohol Use: none Smoking Status: Former smoker Drug Use: none Exam/Review of Systems Exam Vitals Vital Signs Date Temp Pulse Resp B/P (MAP) Pulse Ox O2 O2 Flow FiO2 Time Delivery Rate 07/19/18 98.8 74 18 114/56 95 19:14 (75) 07/19/18 Room Air 11:11 Constitutional: alert Psych: confusion Head: normocephalic, atraumatic Eyes: nl conjunctiva ENMT: nl external ears & nose Neck: supple, non-tender Respiratory: normal air movement; No wheezing Cardiovascular: nl pulses; No jugular venous distention (JVD) Gastrointestinal: nl liver, spleen, rebound or guarding Genitourinary - Male: nl penis, nl scrotum, other (Rectal exam: Large prostate); No CVA tenderness Musculoskeletal: nl extremities to inspection Extremities: No calf tenderness Neurological: nl mental status, confused (On occasions) Skin: nl turgor Results Result Diagram: 07/19/18 0725 07/19/18 0725 Results 24hrs Laboratory Tests Test 07/19/18 07:25 White Blood Count 3.0 #L Red Blood Count 4.28 L Hemoglobin 11.7 L Hematocrit 36.7 L Mean Corpuscular Volume 85.7 Mean Corpuscular Hemoglobin 27.3 L Mean Corpuscular Hemoglobin Concent 31.9 L Red Cell Distribution Width 16.9 H Platelet Count 127 #L Mean Platelet Volume 10.4 Immature Granulocytes % 1.000 H Neutrophils % 45.9 Lymphocytes % 34.3 Monocytes % 18.2 H Eosinophils % 0.3 Basophils % 0.3 Nucleated Red Blood Cells % 0.0 Immature Granulocytes # 0.030 Neutrophils # 1.4 L Lymphocytes # 1.0 Monocytes # 0.6 Eosinophils # 0.0 Basophils # 0.0 Nucleated Red Blood Cells # 0.0 Prothrombin Time 14.1 Prothrombin Time Ratio 1.1 INR International Normalized Ratio 1.08 Activated Partial Thromboplast Time 31.8 Urine Color RED Urine Clarity CLOUDY A Urine pH 7.0 Urine Specific [place] 1.012 Urine Ketones NEGATIVE Urine Nitrite NEGATIVE Urine Bilirubin NEGATIVE Urine Urobilinogen NEGATIVE Urine Leukocyte Esterase NEGATIVE Urine Microscopic RBC > 182 H Urine Microscopic WBC > 182 H Urine Bacteria FEW A Urine Hemoglobin 3+ H Urine Glucose NEGATIVE Urine Total Protein 2+ H Sodium Level 143 Potassium Level 4.1 Chloride Level 105 Carbon Dioxide Level 31 Anion Gap 7 Blood Urea Nitrogen 12 Creatinine 0.68 Est Glomerular Filtrat Rate mL/min Glucose Level 117 Calcium Level 9.4 Medications Medication Current Medications Morphine Sulfate (morphine) 2 mg Q4H PRN IV SEVERE PAIN LEVEL 7-10 Last admi nistered on 07/19/18at 18:31; Admin Dose 2 MG; Start 07/19/18 at 13:30 Acetaminophen (Tylenol Tab) 650 mg Q6H PRN PO MILD PAIN LEVEL 1-3; Start 07/19/18 at 13:30 Benazepril HCl (Lotensin) 40 mg DAILY PO ; Start 07/20/18 at 09:00 Carvedilol (Coreg) 6.25 mg BID PO ; Start 07/19/18 at 21:00 Cholecalciferol (Vitamin D) 400 units DAILY PO ; Start 07/20/18 at 09:00 Divalproex Sodium (Depakote Er) 250 mg BID PO ; Start 07/19/18 at 21:00 Donepezil HCl (Aricept) 10 mg DAILY PO ; Start 07/20/18 at 09:00 Dutasteride (Avodart) 0.5 mg DAILY PO ; Start 07/20/18 at 09:00 Escitalopram Oxalate (Lexapro) 5 mg DAILY PO ; Start 07/20/18 at 09:00 Ferrous Sulfate (Ferrous Sulfate (Ec)) 325 mg DAILY PO ; Start 07/20/18 at 09:00 Hydrocortisone (Hydrocortisone 0.5% Cr) 1 applic QHS PRN TOP ITCHING; Start 07/19/18 at 13:30 Memantine (Namenda) 10 mg DAILY PO ; Start 07/20/18 at 09:00 Pantoprazole (Protonix Tab) 40 mg DAILY@0600 PO ; Start 07/20/18 at 06:00 Risperidone (Risperdal) 1 mg DAILY PO ; Start 07/20/18 at 09:00 Tamsulosin HCl (Flomax) 0.4 mg HS PO ; Start 07/19/18 at 21:00 Tramadol HCl (Ultram) 50 mg Q6H PRN PO PAIN 5-10/10; Start 07/19/18 at 13:30 SUKHWINDER SIFUENTES MD Jul 19, 2018 19:32
[2018-07-19] MEDS: TAMSULOSIN (SR) 0.4 MG CAP PO SCH (21:42)
[2018-07-19] MEDS: DIVALPROEX (ER) 250 MG TAB PO SCH (21:42)
[2018-07-19] MEDS: OLANZAPINE 2.5 MG TAB PO SCH (23:45)
[2018-07-20 01:33] VITALS: BP 127/78; PULSE 106; RESP 18
[2018-07-20] MEDS: morphine 2 MG INJ IV PRN ×2 (04:29→10:56)
[2018-07-20] MEDS: PANTOPRAZOLE (EC) 40 MG TAB PO SCH (05:23)
[2018-07-20 07:59] VITALS: BP 108/63; PULSE 82; RESP 17
[2018-07-20] MEDS ORDERED: RISPERIDONE 1 MG TAB PO SCH (09:00)
[2018-07-20] MEDS: ESCITALOPRAM 10 MG TAB PO SCH (09:21)
[2018-07-20] MEDS: DIVALPROEX (ER) 250 MG TAB PO SCH ×2 (09:21→20:14)
[2018-07-20] MEDS: OLANZAPINE 2.5 MG TAB PO SCH ×3 (09:21→20:17)
[2018-07-20] MEDS: DUTASTERIDE 0.5 MG CAP PO SCH (09:21)
[2018-07-20] MEDS: DONEPEZIL 10 MG TAB PO SCH (09:22)
[2018-07-20] MEDS: CHOLECALCIFEROL 400 UNITS TAB PO SCH (09:22)
[2018-07-20] MEDS: MEMANTINE 10 MG TAB PO SCH (09:22)
[2018-07-20] MEDS: BENAZEPRIL 40 MG TAB PO SCH (09:23)
[2018-07-20] MEDS: FERROUS SULFATE (EC) 325 MG TAB PO SCH (09:33)
--- NOTE | 2018-07-20 13:28 | PREAC ---
Date/Time of Note Date/Time of Note DATE: 07/20/18 TIME: 13:26 Anesthesia Eval and Record Evaluation Time Pre-Procedure Interview DATE: 07/20/18 TIME: 13: Age 82 Sex male NPO: 8 hrs Preoperative diagnosis gross hematuria Planned procedure TRANSURETHRAL RESECTION OF PROSTATE Past Medical History Past Medical History: Includes Cardio: HTN, Dyslipidemia Psych: Other (dementia) Surgery & Anesthesia Issues No known issue Meds Anticoagulation: No Beta Perez within 24 hr: Yes Reported Medications Acetaminophen* (Tylenol*) 325 Mg Tablet, 650 MG PO Q6H PRN for MILD PAIN LEVEL 1-3, TAB AND FEVER>101F 07/19/18 Hydrocortisone* Topical (Hydrocortisone* Topical) 0.5%-28.35 Gm Cream..g., 1 APPLIC TOP QHS PRN for ITCHING, TUB 07/19/18 Divalproex Sodium* (Depakote ER*) 250 Mg Tabsr, 250 MG PO BID, #30 TAB.SA 07/19/18 Tramadol Hcl* (Ultram*) 50 Mg Tablet, 50 MG PO Q6H PRN for PAIN 5-1010, TAB 07/19/18 Pantoprazole* (Protonix*) 40 Mg Tablet.dr, 40 MG PO DAILY, TAB 07/01/18 Ferrous Sulfate* (Ferrous Sulfate*) 325 Mg Tabec, 325 MG PO DAILY, TAB 07/01/18 Simvastatin* (Zocor*) 40 Mg Tablet, 40 MG PO QHS, #30 TAB 05/13/18 Risperidone* (Risperdal*) 1 Mg Tablet, 1 MG PO DAILY, TAB 05/13/18 Memantine* (Namenda*) 10 Mg Tablet, 10 MG PO DAILY, #30 TAB 05/13/18 Benazepril Hcl* (Lotensin*) 40 Mg Tablet, 40 MG PO DAILY, #30 TAB HOLD FOR SBP<110 OR OR<60 05/13/18 Escitalopram Oxalate* (Lexapro*) 5 Mg Tablet, 5 MG PO DAILY, #30 TAB 05/13/18 Tamsulosin Hcl* (Flomax*) 0.4 Mg Cap.er.24h, 0.4 MG PO HS, CAP 05/13/18 Carvedilol* (Coreg*) 6.25 Mg Tablet, 6.25 MG PO BID, #60 TAB HOLD FOR SBP<110 OR OR<60 1/31/19 Cholecalciferol* (Vitamin D*) 400 Unit Tablet, 400 UNIT PO DAILY, TAB 05/13/18 Dutasteride* (Avodart*) 0.5 Mg Capsule, 0.5 MG PO DAILY, CAP 05/13/18 Donepezil* (Aricept*) 10 Mg Tablet, 10 MG PO DAILY, TAB 05/13/18 Discontinued Reported Medications Aspirin (Low Dose Aspirin) 81 Mg Tablet.dr, 81 MG PO DAILY, #30 TAB 07/01/18 Docusate Sodium* (Colace*) 250 Mg Capsule, 250 MG PO TID, #60 CAP 05/13/18 Acetaminophen* (Acetaminophen*) 650 Mg Tablet, 650 MG PO Q6H PRN for PAIN LEVEL 1-1010, #30 TAB 05/13/18 Current Medications Morphine Sulfate (morphine) 2 mg Q4H PRN IV SEVERE PAIN LEVEL 7-10 Last administered on 07/20/18at 10:56; Admin Dose 2 MG; Start 07/19/18 at 13:30 Acetaminophen (Tylenol Tab) 650 mg Q6H PRN PO MILD PAIN LEVEL 1-3; Start 07/19/18 at 13:30 Benazepril HCl (Lotensin) 40 mg DAILY PO Last administered on 07/20/18 09:23; Admin Dose 40 MG; Start 07/20/18 at 09:00 Carvedilol (Coreg) 6.25 mg BID PO Last administered on 07/20/18 09:23; Admin Dose 6.25 MG; Start 07/19/18 at 21:00 Cholecalciferol (Vitamin D) 400 units DAILY PO Last administered on 07/20/18 09:22; Admin Dose 400 UNITS; Start 07/20/18 at 09:00 Divalproex Sodium (Depakote Er) 250 mg BID PO Last administered on 07/20/18 09:21; Admin Dose 250 MG; Start 07/19/18 at 21:00 Donepezil HCl (Aricept) 10 mg DAILY PO Last administered on 07/20/18 09:22; Admin Dose 10 MG; Start 07/20/18 at 09:00 Dutasteride (Avodart) 0.5 mg DAILY PO Last administered on 07/20/18 09:21; Admin Dose 0.5 MG; Start 07/20/18 at 09:00 Escitalopram Oxalate (Lexapro) 5 mg DAILY PO Last administered on 07/20/18at 09:21; Admin Dose 5 MG; Start 07/20/18 at 09:00 Ferrous Sulfate (Ferrous Sulfate (Ec)) 325 mg DAILY PO Last administered on 07/20/18at 09:33; Admin Dose 325 MG; Start 07/20/18 at 09:00 Hydrocortisone (Hydrocortisone 0.5% Cr) 1 applic QHS PRN TOP ITCHING; Start 07/19/18 at 13:30 Memantine (Namenda) 10 mg DAILY PO Last administered on 07/20/18at 09:22; Admin Dose 10 MG; Start 07/20/18 at 09:00 Pantoprazole (Protonix Tab) 40 mg DAILY@0600 PO Last administered on 07/20/18at 05:23; Admin Dose 40 MG; Start 07/20/18 at 06:00 Tamsulosin HCl (Flomax) 0.4 mg HS PO Last administered on 07/19/18at 21:42; Admin Dose 0.4 MG; Start 07/19/18 at 21:00 Tramadol HCl (Ultram) 50 mg Q6H PRN PO PAIN 5-10/10; Start 07/19/18 at 13:30 Olanzapine (Zyprexa) 2.5 mg TID PO Last administered on 07/20/18at 12:30; Admin Dose 2.5 MG; Start 07/19/18 at 22:00 Meds reviewed: Yes Allergies Coded Allergies: No Known Allergy (Unverified , 07/19/18) Allergies Reviewed: Yes Labs/Studies Labs Reviewed: Reviewed by anesthesiologist Result Diagram: 07/20/18 0421 07/20/18 0421 Laboratory Tests 07/20/18 04:21 test: N/A Studies: CXR (Minimal right lower lobe atelectasis.) Pre-procedure Exam Last vitals Vital Signs Date Temp Pulse Resp B/P (MAP) Pulse Ox O2 O2 Flow FiO2 Time Delivery Rate 07/20/18 98.7 82 17 108/63 92 Room Air 07:59 (78) Airway: Adequate mouth opening Mallampati: Mallampati II Teeth: Normal Lung: Normal Heart: Normal ASA Physical Status ASA physical status: 2 Emergency: None Planned Anesthetic General/MAC: ETT Pre-operative Attestations Prior to commencing anesthesia and surgery, the patient was re-evaluated, there was verification of: *The patient's identity *The results of appropriate recent lab work and preoperative vital signs *The above evaluation not changing prior to induction *Anesthetic plan, risk benefits, alternative and complications discussed with patient/family; questions answered; patient/family understands, accepts and wishes to proceed. AVINASH GRIFFIN Jul 20, 2018 13:28
[2018-07-20 13:58] VITALS: BP 102/66; PULSE 92; RESP 16
--- NOTE | 2018-07-20 17:44 | PN ---
Date/Time of Note Date/Time of Note DATE: 07/20/18 TIME: 17:32 Assessment/Plan VTE Prophylaxis Risk score (from Ns)>0 risk: 4 SCD applied (from Ns): Yes Pharmacological prophylaxis: NA/contraindicated Pharm contraindication: bleeding Lines/Catheters IV Catheter Type (from [facility]): Mid Line Urinary Cath still in place: Yes Reason Cath still needed: urinary retention Assessment/Plan Hospital Course Patient is undergoing bladder irrigation, urine is cleared plan for transurethral resection of the prostate. Dr. Eubanks is asked to see patient in cardiology clearance for procedure. Assessment/Plan - Recurrent gross hematuria. Patient continues on bladder irrigation with Sarmiento catheter. Dr. Dolan is following in urology consultation. Plan for transurethral resection of the prostate after cardiology clearance. - Anemia of acute blood loss, continue to monitor H&H, transfuse as needed. - Benign prostatic hypertrophy. Continue Flomax and Proscar. - Preserved ejection fraction per recent echo - Hypertension. Continue Lotensin. - Dementia with behavioral disturbance. Continue Aricept, Namenda, Zyprexa and Thorazine as needed. - Depression. Continue Lexapro. Further recommendations based on clinical course. Plan of care discussed with Dr. Becker. Result Diagram: 07/20/18 0421 07/20/18 0421 Results 24hrs Laboratory Tests Test 07/20/18 04:21 White Blood Count 3.8 #L Red Blood Count 4.04 L Hemoglobin 11.0 L Hematocrit 35.1 L Mean Corpuscular Volume 86.9 Mean Corpuscular Hemoglobin 27.2 L Mean Corpuscular Hemoglobin Concent 31.3 L Red Cell Distribution Width 16.9 H Platelet Count 124 L Mean Platelet Volume 10.7 H Immature Granulocytes % 0.500 H Neutrophils % 58.3 Lymphocytes % 24.9 Monocytes % 16.0 H Eosinophils % 0.3 Basophils % 0.0 Nucleated Red Blood Cells % 0.0 Immature Granulocytes # 0.020 Neutrophils # 2.2 Lymphocytes # 1.0 Monocytes # 0.6 Eosinophils # 0.0 Basophils # 0.0 Nucleated Red Blood Cells # 0.0 Sodium Level 140 Potassium Level 4.0 Chloride Level 100 Carbon Dioxide Level 31 Anion Gap 9 Blood Urea Nitrogen 13 Creatinine 0.74 Est Glomerular Filtrat Rate mL/min Glucose Level 122 Calcium Level 8.9 Exam/Review of Systems Exam Vitals Vital Signs Date Temp Pulse Resp B/P (MAP) Pulse Ox O2 O2 Flow FiO2 Time Delivery Rate 07/20/18 98.2 92 16 102/66 92 Room Air 13:58 (78) Intake and Output 07/19/18 07/19/18 07/20/18 1414:59 22:59 06:59 IntakeIntake Total 1620 ml 3000 ml 07893 ml OutputOutput Total 2090 ml 3800 ml 38934 ml BalanceBalance -470 ml -800 ml -3200 ml Exam Constitutional: alert, oriented, demented Respiratory: clear to auscultation Cardiovascular: nl pulses Gastrointestinal: soft, non-tender Genitourinary - Male: other (Sarmiento catheter) Musculoskeletal: nl extremities to inspection Extremities: normal pulses Results Results 24hrs Laboratory Tests Test 07/20/18 04:21 White Blood Count 3.8 #L Red Blood Count 4.04 L Hemoglobin 11.0 L Hematocrit 35.1 L Mean Corpuscular Volume 86.9 Mean Corpuscular Hemoglobin 27.2 L Mean Corpuscular Hemoglobin Concent 31.3 L Red Cell Distribution Width 16.9 H Platelet Count 124 L Mean Platelet Volume 10.7 H Immature Granulocytes % 0.500 H Neutrophils % 58.3 Lymphocytes % 24.9 Monocytes % 16.0 H Eosinophils % 0.3 Basophils % 0.0 Nucleated Red Blood Cells % 0.0 Immature Granulocytes # 0.020 Neutrophils # 2.2 Lymphocytes # 1.0 Monocytes # 0.6 Eosinophils # 0.0 Basophils # 0.0 Nucleated Red Blood Cells # 0.0 Sodium Level 140 Potassium Level 4.0 Chloride Level 100 Carbon Dioxide Level 31 Anion Gap 9 Blood Urea Nitrogen 13 Creatinine 0.74 Est Glomerular Filtrat Rate mL/min Glucose Level 122 Calcium Level 8.9 Medications Medication Current Medications Morphine Sulfate (morphine) 2 mg Q4H PRN IV SEVERE PAIN LEVEL 7-10 Last administered on 07/20/18at 10:56; Admin Dose 2 MG; Start 07/19/18 at 13:30 Acetaminophen (Tylenol Tab) 650 mg Q6H PRN PO MILD PAIN LEVEL 1-3; Start 07/19/18 at 13:30 Benazepril HCl (Lotensin) 40 mg DAILY PO Last administered on 07/20/18at 09:23; Admin Dose 40 MG; Start 07/20/18 at 09:00 Carvedilol (Coreg) 6.25 mg BID PO Last administered on 07/20/18 09:23; Admin Dose 6.25 MG; Start 07/19/18 at 21:00 Cholecalciferol (Vitamin D) 400 units DAILY PO Last administered on 07/20/18 09:22; Admin Dose 400 UNITS; Start 07/20/18 at 09:00 Divalproex Sodium (Depakote Er) 250 mg BID PO Last administered on 07/20/18 09:21; Admin Dose 250 MG; Start 07/19/18 at 21:00 Donepezil HCl (Aricept) 10 mg DAILY PO Last administered on 07/20/18 09:22; Admin Dose 10 MG; Start 07/20/18 at 09:00 Dutasteride (Avodart) 0.5 mg DAILY PO Last administered on 07/20/18 09:21; Admin Dose 0.5 MG; Start 07/20/18 at 09:00 Escitalopram Oxalate (Lexapro) 5 mg DAILY PO Last administered on 07/20/18 09:21; Admin Dose 5 MG; Start 07/20/18 at 09:00 Ferrous Sulfate (Ferrous Sulfate (Ec)) 325 mg DAILY PO Last administered on 07/20/18 09:33; Admin Dose 325 MG; Start 07/20/18 at 09:00 Hydrocortisone (Hydrocortisone 0.5% Cr) 1 applic QHS PRN TOP ITCHING; Start 07/19/18 at 13:30 Memantine (Namenda) 10 mg DAILY PO Last administered on 07/20/18 09:22; Admin Dose 10 MG; Start 07/20/18 at 09:00 Pantoprazole (Protonix Tab) 40 mg DAILY@0600 PO Last administered on 07/20/18 05:23; Admin Dose 40 MG; Start 07/20/18 at 06:00 Tamsulosin HCl (Flomax) 0.4 mg HS PO Last administered on 07/19/18 21:42; Admin Dose 0.4 MG; Start 07/19/18 at 21:00 Tramadol HCl (Ultram) 50 mg Q6H PRN PO PAIN 5-10/10; Start 07/19/18 at 13:30 Olanzapine (Zyprexa) 2.5 mg TID PO Last administered on 4/9/19at 12:30; Admin Dose 2.5 MG; Start 07/19/18 at 22:00 JOYCE CHOW Jul 20, 2018 17:43
--- NOTE | 2018-07-20 17:56 | RADRPT ---
Vent Rate: 89 bpm RR Interval: 0 msec GA Interval: 214 msec QRS Duration: 138 msec QT Interval: 406 msec QTC Interval: 493 msec P-R-T [place]: 45 - 51 - 36 degrees Sinus rhythm with 1st degree AV block Right bundle branch block Abnormal ECG Electronically Signed By: Rudi Farah
[2018-07-20 20:00] VITALS: BP 105/56; PULSE 82; RESP 18
[2018-07-20] MEDS: TAMSULOSIN (SR) 0.4 MG CAP PO SCH (20:14)
--- NOTE | 2018-07-20 21:13 | CONS ---
Consult Date/Type/Reason Admit Date/Time Jul 19, 2018 at 09:56 Initial Consult Date 07/19/18 Type of Consultation: Urology Reason for Consultation Gross hematuria and benign prostatic hypertrophy with obstruction Requesting Provider: MARTA MCGUIRE MD Date/Time of Note DATE: 07/20/18 TIME: 21:09 Subjective Patient is confused, was trying to get out of bed. Objective Vitals Vital Signs Date Temp Pulse Resp B/P (MAP) Pulse Ox O2 O2 Flow FiO2 Time Delivery Rate 07/20/18 98.6 82 18 105/56 92 20:00 (72) 07/20/18 Room Air 13:58 Intake and Output 07/19/18 07/19/18 07/20/18 1515:00 23:00 07:00 IntakeIntake Total 1620 ml 3000 ml 56596 ml OutputOutput Total 2090 ml 3800 ml 42683 ml BalanceBalance -470 ml -800 ml -3200 ml Exam He does have an indwelling Sarmiento catheter with continuous bladder irrigation and the return is clear. Results/Medications Result Diagram: 07/20/18 0421 07/20/18 0421 Results 24 hrs Laboratory Tests Test 07/20/18 04:21 07/20/18 18:50 White Blood Count 3.8 #L Red Blood Count 4.04 L Hemoglobin 11.0 L Hematocrit 35.1 L Mean Corpuscular Volume 86.9 Mean Corpuscular Hemoglobin 27.2 L Mean Corpuscular Hemoglobin Concent 31.3 L Red Cell Distribution Width 16.9 H Platelet Count 124 L Mean Platelet Volume 10.7 H Immature Granulocytes % 0.500 H Neutrophils % 58.3 Lymphocytes % 24.9 Monocytes % 16.0 H Eosinophils % 0.3 Basophils % 0.0 Nucleated Red Blood Cells % 0.0 Immature Granulocytes # 0.020 Neutrophils # 2.2 Lymphocytes # 1.0 Monocytes # 0.6 Eosinophils # 0.0 Basophils # 0.0 Nucleated Red Blood Cells # 0.0 Sodium Level 140 Potassium Level 4.0 Chloride Level 100 Carbon Dioxide Level 31 Anion Gap 9 Blood Urea Nitrogen 13 Creatinine 0.74 Est Glomerular Filtrat Rate mL/min Glucose Level 122 Calcium Level 8.9 Creatine Kinase 23 Creatine Kinase Index 1.4 Creatinine Kinase MB (Mass) 0.32 Troponin I < 0.012 Home Meds Reported Medications Acetaminophen* (Tylenol*) 325 Mg Tablet, 650 MG PO Q6H PRN for MILD PAIN LEVEL 1-3, TAB AND FEVER>101F 07/19/18 Hydrocortisone* Topical (Hydrocortisone* Topical) 0.5%-28.35 Gm Cream..g., 1 APPLIC TOP QHS PRN for ITCHING, TUB 07/19/18 Divalproex Sodium* (Depakote ER*) 250 Mg Tabsr, 250 MG PO BID, #30 TAB.SA 07/19/18 Tramadol Hcl* (Ultram*) 50 Mg Tablet, 50 MG PO Q6H PRN for PAIN 5-01/20, TAB 07/19/18 Pantoprazole* (Protonix*) 40 Mg Tablet.dr, 40 MG PO DAILY, TAB 07/01/18 Ferrous Sulfate* (Ferrous Sulfate*) 325 Mg Tabec, 325 MG PO DAILY, TAB 07/01/18 Simvastatin* (Zocor*) 40 Mg Tablet, 40 MG PO QHS, #30 TAB 05/13/18 Risperidone* (Risperdal*) 1 Mg Tablet, 1 MG PO DAILY, TAB 05/13/18 Memantine* (Namenda*) 10 Mg Tablet, 10 MG PO DAILY, #30 TAB 05/13/18 Benazepril Hcl* (Lotensin*) 40 Mg Tablet, 40 MG PO DAILY, #30 TAB HOLD FOR SBP<110 OR SC<60 05/13/18 Escitalopram Oxalate* (Lexapro*) 5 Mg Tablet, 5 MG PO DAILY, #30 TAB 05/13/18 Tamsulosin Hcl* (Flomax*) 0.4 Mg Cap.er.24h, 0.4 MG PO HS, CAP 05/13/18 Carvedilol* (Coreg*) 6.25 Mg Tablet, 6.25 MG PO BID, #60 TAB HOLD FOR SBP<110 OR SC<60 05/13/18 Cholecalciferol* (Vitamin D*) 400 Unit Tablet, 400 UNIT PO DAILY, TAB 05/13/18 Dutasteride* (Avodart*) 0.5 Mg Capsule, 0.5 MG PO DAILY, CAP 05/13/18 Donepezil* (Aricept*) 10 Mg Tablet, 10 MG PO DAILY, TAB 05/13/18 Discontinued Reported Medications Aspirin (Low Dose Aspirin) 81 Mg Tablet.dr, 81 MG PO DAILY, #30 TAB 07/01/18 Docusate Sodium* (Colace*) 250 Mg Capsule, 250 MG PO TID, #60 CAP 05/13/18 Acetaminophen* (Acetaminophen*) 650 Mg Tablet, 650 MG PO Q6H PRN for PAIN LEVEL 1-10/10, #30 TAB 05/13/18 Medications Current Medications Morphine Sulfate (morphine) 2 mg Q4H PRN IV SEVERE PAIN LEVEL 7-10 Last administered on 07/20/18 10:56; Admin Dose 2 MG; Start 07/19/18 at 13:30 Acetaminophen (Tylenol Tab) 650 mg Q6H PRN PO MILD PAIN LEVEL 1-3; Start 07/19/18 at 13:30 Benazepril HCl (Lotensin) 40 mg DAILY PO Last administered on 07/20/18 09:23; Admin Dose 40 MG; Start 07/20/18 at 09:00 Carvedilol (Coreg) 6.25 mg BID PO Last administered on 07/20/18 20:14; Admin Dose 6.25 MG; Start 07/19/18 at 21:00 Cholecalciferol (Vitamin D) 400 units DAILY PO Last administered on 07/20/18 09:22; Admin Dose 400 UNITS; Start 07/20/18 at 09:00 Divalproex Sodium (Depakote Er) 250 mg BID PO Last administered on 07/20/18 20:14; Admin Dose 250 MG; Start 07/19/18 at 21:00 Donepezil HCl (Aricept) 10 mg DAILY PO Last administered on 07/20/18 09:22; Admin Dose 10 MG; Start 07/20/18 at 09:00 Dutasteride (Avodart) 0.5 mg DAILY PO Last administered on 07/20/18 09:21; Admin Dose 0.5 MG; Start 07/20/18 at 09:00 Escitalopram Oxalate (Lexapro) 5 mg DAILY PO Last administered on 07/20/18 09:21; Admin Dose 5 MG; Start 07/20/18 at 09:00 Ferrous Sulfate (Ferrous Sulfate (Ec)) 325 mg DAILY PO Last administered on 07/20/18 09:33; Admin Dose 325 MG; Start 07/20/18 at 09:00 Hydrocortisone (Hydrocortisone 0.5% Cr) 1 applic QHS PRN TOP ITCHING; Start 07/19/18 at 13:30 Memantine (Namenda) 10 mg DAILY PO Last administered on 07/20/18at 09:22; Admin Dose 10 MG; Start 07/20/18 at 09:00 Pantoprazole (Protonix Tab) 40 mg DAILY@0600 PO Last administered on 07/20/18at 05:23; Admin Dose 40 MG; Start 07/20/18 at 06:00 Tamsulosin HCl (Flomax) 0.4 mg HS PO Last administered on 07/20/18at 20:14; Admin Dose 0.4 MG; Start 07/19/18 at 21:00 Tramadol HCl (Ultram) 50 mg Q6H PRN PO PAIN 5-1010; Start 07/19/18 at 13:30 Olanzapine (Zyprexa) 2.5 mg TID PO Last administered on 07/20/18at 20:17; Admin Dose 2.5 MG; Start 07/19/18 at 22:00 Assessment/Plan Hospital Course (Demo Recall) 82-year-old male has been having recurrent gross hematuria. He was here last months for same problem. Urine cytology was negative at the bladder was irrigated and once the urine was clear we remove the Sarmiento catheter and he was voiding on his own without hematuria patient was discharged to the [facility] facility and he returned again today with a gross hematuria. The yong ent is known to have a large prostate and has been on tamsulosin and finasteride. He has history of dementia. In the emergency room he had a Sarmiento catheter inserted and started on bladder irrigation. However the return was bloody and then the irrigation start going backward and he was having blood clots in the tubing. I told the nurse to stop the irrigation and I came in and inserted a 24 [place] three-way Sarmiento catheter with the balloon inflated with 30 mL of sterile water. Then I did hand irrigate the Sarmiento catheter for about half hour and got all the blood clots out and started him on continuous bladder irrigation that was working very well. His urine remains clear. Impression: Benign prostatic hypertrophy with bladder outlet obstruction and lower urinary tract symptoms including hematuria. Plan: Transurethral resection of the prostate. I did call his daughter at [phone]. Her name is Maddie Guzmán I discussed with her her father's condition and the fact that he has been having gross hematuria on and off and has been in and out of the hospital multiple times because of that. She understood in fact she said she has been taking care of him and he is had this problem and she wants that to be taking care of. She understood the plan for the transurethral resection of the prostate. The risks and possible complications especially at his age of 82. I did answer all her questions. And she is agreeable to proceed. SUKHWINDER SIFUENTES MD Jul 20, 2018 21:13
[2018-07-21] VITALS (23 sets, daily range): BP systolic 101–158; BP diastolic 64–100; PULSE 68–114; RESP 10–23
[2018-07-21] MEDS: PANTOPRAZOLE (EC) 40 MG TAB PO SCH (05:35)
[2018-07-21] MEDS ORDERED: SEVOFLURANE 15 MIN ONE (07:00)
[2018-07-21] MEDS ORDERED: CEFAZOLIN 1 GM INJ ONE (07:00)
[2018-07-21] MEDS ORDERED: PHENYLephrine 10 MG INJ ONE (07:00)
[2018-07-21] MEDS: morphine 2 MG INJ IV PRN ×2 (08:59→23:52)
[2018-07-21] MEDS: BENAZEPRIL 40 MG TAB PO SCH (09:00)
[2018-07-21] MEDS: CHOLECALCIFEROL 400 UNITS TAB PO SCH (09:00)
[2018-07-21] MEDS: DIVALPROEX (ER) 250 MG TAB PO SCH ×2 (09:00→21:00)
[2018-07-21] MEDS: FERROUS SULFATE (EC) 325 MG TAB PO SCH (09:00)
[2018-07-21] MEDS: ESCITALOPRAM 10 MG TAB PO SCH (09:00)
[2018-07-21] MEDS: MEMANTINE 10 MG TAB PO SCH (09:00)
[2018-07-21] MEDS: DONEPEZIL 10 MG TAB PO SCH (09:00)
[2018-07-21] MEDS: DUTASTERIDE 0.5 MG CAP PO SCH (09:00)
[2018-07-21] MEDS: OLANZAPINE 2.5 MG TAB PO SCH ×3 (09:00→21:00)
--- NOTE | 2018-07-21 16:28 | PN ---
Date/Time of Note Date/Time of Note DATE: 07/21/18 TIME: 16:23 Assessment/Plan VTE Prophylaxis Risk score (from Ns)>0 risk: 3 [place] [facility] [place] Pharmacological prophylaxis: NA/contraindicated Pharm contraindication: bleeding Lines/Catheters IV Catheter Type (from [facility] Saline Lock Urinary Cath still in place: Yes Reason Cath still needed: urinary retention Assessment/Plan Hospital Course Patient with hematuria, pending cardiology clearance for TURP. Dr. Eubanks is asked to see patient in cardiology clearance for procedure yesterday. Ordered cardiac enzymes yesterday. 2D echo from 2 months ago with preserved ejection fraction. Dr. Rodrigues is aware of the consult. Assessment/Plan - Recurrent gross hematuria. Patient continues on bladder irrigation with Sarmiento catheter. Dr. Dolan is following in urology consultation. Plan for transurethral resection of the prostate after cardiology clearance. - Anemia of acute blood loss, continue to monitor H&H, transfuse as needed. - Benign prostatic hypertrophy. Continue Flomax and Proscar. - Preserved ejection fraction per recent echo - Hypertension. Continue Lotensin. - Dementia with behavioral disturbance. Continue Aricept, Namenda, Zyprexa and Thorazine as needed. - Depression. Continue Lexapro. Further recommendations based on clinical course. Plan of care discussed with Dr. Becker. Result Diagram: 07/21/185 07/21/18 0425 Results 24hrs Laboratory Tests Test 07/20/18 18:50 07/21/18 00:20 07/21/18 04:25 Creatine Kinase 23 25 23 Creatine Kinase Index 1.4 1.0 1.1 Creatinine Kinase MB (Mass) 0.32 0.26 0.26 Troponin I < 0.012 < 0.012 < 0.012 White Blood Count 3.8 L Red Blood Count 4.21 L Hemoglobin 11.3 L Hematocrit 36.2 L Mean Corpuscular Volume 86.0 Mean Corpuscular Hemoglobin 26.8 L Mean Corpuscular Hemoglobin Concent 31.2 L Red Cell Distribution Width 16.9 H Platelet Count 116 L Mean Platelet Volume 10.8 H Immature Granulocytes % 0.800 H Neutrophils % 53.0 Segmented Neutrophils % (Manual) 58 Band Neutrophils % (Manual) 3 Lymphocytes % 28.5 Lymphocytes % (Manual) 22 Monocytes % 17.1 H Monocytes % (Manual) 16 H Eosinophils % 0.3 Basophils % 0.3 Metamyelocytes % (manual) 1 H Nucleated Red Blood Cells % 0.0 Immature Granulocytes # 0.030 Neutrophils # 2.0 Neutrophils # (Manual) 2.2 Band Neutrophils # 0.1 Lymphocytes (Manual) 0.8 Lymphocytes # 1.1 Monocytes # 0.6 Monocytes # (Manual) 0.6 Eosinophils # 0.0 Basophils # 0.0 Metamyelocytes # 0.0 Nucleated Red Blood Cells # 0.0 Platelet Estimate DECREASED Polychromasia 1+ Poikilocytosis 1+ Anisocytosis 1+ Ovalocytes 1+ Prothrombin Time 14.3 Prothrombin Time Ratio 1.1 INR International Normalized Ratio 1.10 Activated Partial Thromboplast Time 32.9 Thrombin Time 16.3 Sodium Level 141 Potassium Level 4.3 Chloride Level 103 Carbon Dioxide Level 32 H Anion Gap 6 Blood Urea Nitrogen 11 Creatinine 0.72 Est Glomerular Filtrat Rate mL/min Glucose Level 100 Calcium Level 9.2 Exam/Review of Systems Exam Vitals Vital Signs Date Temp Pulse Resp B/P (MAP) Pulse Ox O2 O2 Flow FiO2 Time Delivery Rate 07/21/18 98.1 79 16 141/67 94 14:21 (91) 07/21/18 Room Air 07:42 Intake and Output 07/20/18 07/20/18 07/21/18 1515:00 23:00 07:00 IntakeIntake Total 5180 ml 4060 ml OutputOutput Total 5800 ml 1000 ml 1425 ml BalanceBalance -620 ml 3060 ml -1425 ml Exam Constitutional: alert, oriented, demented Respiratory: clear to auscultation Cardiovascular: nl pulses Gastrointestinal: soft, non-tender Genitourinary - Male: other (Sarmiento catheter) Musculoskeletal: nl extremities to inspection Extremities: normal pulses Results Results 24hrs Laboratory Tests Test 07/20/18 18:50 07/21/18 00:20 07/21/18 04:25 Creatine Kinase 23 25 23 Creatine Kinase Index 1.4 1.0 1.1 Creatinine Kinase MB (Mass) 0.32 0.26 0.26 Troponin I < 0.012 < 0.012 < 0.012 White Blood Count 3.8 L Red Blood Count 4.21 L Hemoglobin 11.3 L Hematocrit 36.2 L Mean Corpuscular Volume 86.0 Mean Corpuscular Hemoglobin 26.8 L Mean Corpuscular Hemoglobin Concent 31.2 L Red Cell Distribution Width 16.9 H Platelet Count 116 L Mean Platelet Volume 10.8 H Immature Granulocytes % 0.800 H Neutrophils % 53.0 Segmented Neutrophils % (Manual) 58 Band Neutrophils % (Manual) 3 Lymphocytes % 28.5 Lymphocytes % (Manual) 22 Monocytes % 17.1 H Monocytes % (Manual) 16 H Eosinophils % 0.3 Basophils % 0.3 Metamyelocytes % (manual) 1 H Nucleated Red Blood Cells % 0.0 Immature Granulocytes # 0.030 Neutrophils # 2.0 Neutrophils # (Manual) 2.2 Band Neutrophils # 0.1 Lymphocytes (Manual) 0.8 Lymphocytes # 1.1 Monocytes # 0.6 Monocytes # (Manual) 0.6 Eosinophils # 0.0 Basophils # 0.0 Metamyelocytes # 0.0 Nucleated Red Blood Cells # 0.0 Platelet Estimate DECREASED Polychromasia 1+ Poikilocytosis 1+ Anisocytosis 1+ Ovalocytes 1+ Prothrombin Time 14.3 Prothrombin Time Ratio 1.1 INR International Normalized Ratio 1.10 Activated Partial Thromboplast Time 32.9 Thrombin Time 16.3 Sodium Level 141 Potassium Level 4.3 Chloride Level 103 Carbon Dioxide Level 32 H Anion Gap 6 Blood Urea Nitrogen 11 Creatinine 0.72 Est Glomerular Filtrat Rate mL/min Glucose Level 100 Calcium Level 9.2 Medications Medication Current Medications Morphine Sulfate (morphine) 2 mg Q4H PRN IV SEVERE PAIN LEVEL 7-10 Last administered on 07/21/18at 08:59; Admin Dose 2 MG; Start 07/19/18 at 13:30 Acetaminophen (Tylenol Tab) 650 mg Q6H PRN PO MILD PAIN LEVEL 1-3; Start 07/19/18 at 13:30 Benazepril HCl (Lotensin) 40 mg DAILY PO Last administered on 07/20/18 09:23; Admin Dose 40 MG; Start 07/20/18 at 09:00 Carvedilol (Coreg) 6.25 mg BID PO Last administered on 07/20/18at 20:14; Admin Dose 6.25 MG; Start 07/19/18 at 21:00 Cholecalciferol (Vitamin D) 400 units DAILY PO Last administered on 07/20/18 09:22; Admin Dose 400 UNITS; Start 07/20/18 at 09:00 Divalproex Sodium (Depakote Er) 250 mg BID PO Last administered on 07/20/18 20:14; Admin Dose 250 MG; Start 07/19/18 at 21:00 Donepezil HCl (Aricept) 10 mg DAILY PO Last administered on 07/20/18 09:22; Admin Dose 10 MG; Start 07/20/18 at 09:00 Dutasteride (Avodart) 0.5 mg DAILY PO Last administered on 07/20/18 09:21; Admin Dose 0.5 MG; Start 07/20/18 at 09:00 Escitalopram Oxalate (Lexapro) 5 mg DAILY PO Last administered on 07/20/18 09:21; Admin Dose 5 MG; Start 07/20/18 at 09:00 Ferrous Sulfate (Ferrous Sulfate (Ec)) 325 mg DAILY PO Last administered on 07/20/18 09:33; Admin Dose 325 MG; Start 07/20/18 at 09:00 Hydrocortisone (Hydrocortisone 0.5% Cr) 1 applic QHS PRN TOP ITCHING; Start 07/19/18 at 13:30 Memantine (Namenda) 10 mg DAILY PO Last administered on 07/20/18 09:22; Admin Dose 10 MG; Start 07/20/18 at 09:00 Pantoprazole (Protonix Tab) 40 mg DAILY@0600 PO Last administered on 07/20/18 05:23; Admin Dose 40 MG; Start 07/20/18 at 06:00 Tamsulosin HCl (Flomax) 0.4 mg HS PO Last administered on 07/20/18 20:14; Admin Dose 0.4 MG; Start 07/19/18 at 21:00 Tramadol HCl (Ultram) 50 mg Q6H PRN PO PAIN 5-10/10; Start 07/19/18 at 13:30 Olanzapine (Zyprexa) 2.5 mg TID PO Last administered on 07/20/18 20:17; Admin Dose 2.5 MG; Start 07/19/18 at 22:00 JOYCE CHOW Jul 21, 2018 16:28
[2018-07-21] MEDS: DEXTROSE 5%-0.45% NACL 1,000 ML IV SCH (16:33)
[2018-07-21] MEDS ORDERED: FENTAnyl 50 MCG/ML VIAL ONE (18:48)
[2018-07-21] MEDS ORDERED: INDIGOTINDISULFONATE 0.8% 5 ML INJ ONE (19:09)
[2018-07-21] MEDS ORDERED: PROPOFOL 20 ML ONE (20:00)
[2018-07-21] MEDS ORDERED: ONDANSETRON 4 MG INJ ONE (20:00)
[2018-07-21] MEDS ORDERED: ROCURONIUM 50 MG INJ ONE ×2 (20:00→21:31)
[2018-07-21] MEDS ORDERED: METOCLOPRAMIDE 10 MG INJ ONE (20:01)
[2018-07-21] MEDS ORDERED: DEXAMETHASONE 4 MG/ML 5 ML INJ ONE (20:01)
[2018-07-21] MEDS ORDERED: LABETALOL HCL 20MG INJ ONE (20:01)
[2018-07-21] MEDS ORDERED: EPHEDrine SULFATE 50 MG/5 ML SYG IV PRN (21:00)
[2018-07-21] MEDS ORDERED: METOCLOPRAMIDE 10 MG INJ IV PRN (21:00)
[2018-07-21] MEDS ORDERED: LABETALOL HCL 20MG INJ IV PRN (21:00)
[2018-07-21] MEDS: TAMSULOSIN (SR) 0.4 MG CAP PO SCH (21:00)
[2018-07-21] MEDS ORDERED: HYDROmorphONE 1 MG/5 ML IV SYRINGE IV PRN ×3 (21:00)
[2018-07-21] MEDS ORDERED: hydrALAzine 20 MG INJ IV PRN (21:00)
[2018-07-21] MEDS ORDERED: ONDANSETRON 4 MG INJ IV PRN (21:00)
[2018-07-21] MEDS ORDERED: MEPERIDINE 25 MG INJ IV PRN (21:00)
[2018-07-21] MEDS ORDERED: FENTAnyl 50 MCG/ML VIAL IV PRN ×3 (21:00)
[2018-07-21] MEDS ORDERED: DIPHENHYDRAMINE 50 MG INJ IV PRN (21:00)
[2018-07-21] MEDS ORDERED: EPHEDrine 50 MG INJ ONE (21:31)
[2018-07-21] MEDS ORDERED: NEOSTIGMINE 3 MG/3 ML SYRINGE ONE (21:31)
[2018-07-21] MEDS ORDERED: GLYCOPYRROLATE 0.4 MG INJ ONE (21:32)
[2018-07-21] MEDS ORDERED: SUGAMMADEX SODIUM 200 MG/2 ML VIAL IV ONE (22:02)
--- NOTE | 2018-07-21 22:13 | PAC ---
Date/Time of Note Date/Time of Note DATE: 07/21/18 TIME: 22:12 Post-Anesthesia Notes Post-Anesthesia Note Last documented vital signs Vital Signs Date Temp Pulse Resp B/P (MAP) Pulse Ox O2 O2 Flow FiO2 Time Delivery Rate 07/21/18 98.2 68 18 139/68 95 22:09 (91) 07/21/18 Room Air 07:42 Activity: WNL Respiratory function: WNL Cardiovascular function: WNL Mental status: Baseline Pain reasonably controlled: Yes Hydration appropriate: Yes Nausea/Vomiting absent: Yes VIANEY BHANDARI MD Jul 21, 2018 22:13
--- NOTE | 2018-07-21 22:19 | OPR ---
Date/Time of Note Date/Time of Note DATE: 07/21/18 TIME: 22:14 Operative Report Procedure Date: Jul 21, 2018 Preoperative Diagnosis Very large prostate and recurrent to gross hematuria and urinary retention. 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 Procedure Description The patient was brought to the operating room and general anesthesia was induced. Timeout was done, the patient was identified by his name, birthdate and the procedure. The patient was given 2 g of Ancef IV at the start of the procedure. The genital area was then prepped and draped in the usual sterile manner. Cystoscopy was done with a 22 Japanese cystoscope and it showed prostatic enlargement with obstruction. Patient had a very large prostate with lobes protruding from all around the urethra. He had large vessels on the surface of the prostate and in the trigone area causing the bleeding. The bladder was very trabeculated. There was no bladder tumors or stones. The cystoscope was then removed and the urethra was dilated with the Mayte dilators up to #30 F rench. The 26 Japanese bipolar resectoscope sheath was then introduced under direct vision through the penile urethra all the way to the bladder. Then the resection of the prostate was started. First the median lobe was resected then the right lateral lobe then the left lateral lobe and finally the anterior lobe as well as apical tissue. I spent 3 hours resecting prostate tissue. All the bleeders were electrocoagulated. All the prostatic chips were evacuated. Good hemostasis was obtained. The ureteral orifices as well as external sphincter were intact and safeguarded during the whole procedure. At the end of the procedure the resectoscope was removed and #24 Japanese three-way Sarmiento catheter was inserted into the bladder. The balloon was inflated with 60 mL of sterile water. The catheter was connected to a drainage bag and continuous bladder irrigation was started in the operating room with normal saline. The patient was transferred to the recovery room in stable and satisfactory condition. SUKHWINDER SIFUENTES MD Jul 21, 2018 22:19
[2018-07-22] VITALS (10 sets, daily range): BP systolic 94–134; BP diastolic 56–68; PULSE 84–97; RESP 18–20
--- NOTE | 2018-07-22 02:15 | CONS ---
DATE OF ADMISSION: 07/21/2018 DATE OF CONSULTATION: 07/21/2018 REASON FOR CONSULTATION: Preoperative evaluation. REQUESTING PHYSICIAN: Marta Mcguire M.D. HISTORY OF PRESENT ILLNESS: Mr. Yuliana lala is an 82-year-old male with history of hypertension, osteoporosis, BPH, dementia who had recently been admitted with hematuria, falls as an outpatient with initial resolution of hematuria and then re-presented now with recurrent gross hematuria. The patient initially upon arrival, temperature was 98.2, blood pressure 115/78, pulse 77, respiratory 50, satting 96%. The patient's labs revealed a white count of 0.3, hemoglobin 11.7, platelet count 127, sodium 140, potassium 4.0, creatinine 0.7, BUN 13. Troponin negative. UA borderline positive. The patient underwent a chest x-ray that revealed minimal right lower lobe atelectasis, cardiomegaly. The patient's electrocardiogram revealed a sinus rhythm, first-degree AV block, right bundle branch block secondary to repolarization abnormalities. The patient subsequently was admitted to the floor and since admit to floor, has had negative troponins x3. The patient has a recent 2D echo done in May 2018 revealing a preserved EF with no significant contraindicated valvular lesions. PAST MEDICAL HISTORY: As above in HPI. MEDICATIONS CURRENTLY IN HOSPITAL: 2. Vitamin D. 3. Aricept. 4. Avodart. 5. Lexapro. 6. Ferrous sulfate. 7. Namenda. 8. Protonix. 9. Zyprexa. 10. Carvedilol 6.25 mg p.o. b.i.d. 11. Flomax 0.4 mg at bedtime. 12. Depakote 250 mg p.o. b.i.d. p.r.n. 13. Morphine p.r.n. 14. Tylenol p.r.n. 15. Hydrocortisone cream p.r.n. 16. Tramadol p.r.n. ALLERGIES: NO KNOWN DRUG ALLERGIES. SOCIAL HISTORY: No current tobacco, ETOH or illicit drug use. FAMILY HISTORY: No history of sudden cardiac or early CAD. REVIEW OF SYSTEMS: As above in HPI. CONSTITUTIONAL: No fevers, chills. PULMONARY: Shortness of breath. CARDIOVASCULAR: No current chest pain. GASTROINTESTINAL: No vomiting. GENITOURINARY: No hematuria. PSYCHIATRIC: Positive psychiatric history. NEUROLOGIC: No documented history of CVA but altered state. HEMATOLOGIC: Hem-anemia. PHYSICAL EXAMINATION: VITAL SIGNS: Temperature of 98.2, blood pressure most recently was 139/68, pulse 60, respiration 18, sat 95%. GENERAL: The patient is alert, awake, no acute distress. NECK: JVP approximately 8 cm of water. CHEST: Fair air movement throughout. HEART: Regular rate and rhythm. Normal S1, S2, I/ systolic murmur, nondisplaced PMI. ABDOMEN: Positive bowel sounds, soft. EXTREMITIES: Reveal no edema. 1+ pulses bilaterally posterior tibial. LABORATORIES: Most recent from today, white count 3.8, hemoglobin 11.3, platelet count of 115. Sodium 141, potassium 4.3, creatinine 0.7, BUN 11. IMAGING STUDIES: As above in HPI. No further imaging studies for my review at this time. ECG: As above in HPI. No further electrocardiograms for my review at this time. IMPRESSION: 1. Preoperative evaluation prior to a transurethral prostatectomy. 2. Hematuria, recurrent. 3. Hypertension, under reasonable control. 4. Dementia. 5. Anemia. 6. Right bundle branch block pattern, negative troponins x3. RECOMMENDATIONS: At this time, this patient has had no active symptoms of chest pain. Negative troponins x3 and a very recent echo revealing a preserved EF. No conjunctivae lesions. The patient is okay to proceed to the OR at this time on moderate cardiovascular risk. Postoperatively, we would watch closely for signs and symptoms of cardiovascular complications including but not limited to the onset of chest pain, shortness of breath, uncontrolled cardiac arrhythmias or development of congestive heart failure. Postoperatively, we would additionally check a 12-lead EKG to assess for any significant changes. Thank you for allowing me to take part in the care of this patient. I will continue to follow him closely with you for further recommendations will be made as the patient progresses through his inpatient hospital clinical course. Dictated By: LION RODRIGUEZ/BIANCA Conf#: [id number] DID#: [id number] CC: MYLES REDMAN MD; MARTA MCGUIRE MD; GURJIT ANTUNEZ MD;*EndCC* MTDD
[2018-07-22] MEDS: DEXTROSE 5%-0.45% NACL 1,000 ML IV SCH (02:53)
[2018-07-22] MEDS: PANTOPRAZOLE (EC) 40 MG TAB PO SCH (04:42)
[2018-07-22] MEDS: morphine 2 MG INJ IV PRN (04:42)
--- NOTE | 2018-07-22 08:30 | PN ---
Date/Time of Note Date/Time of Note DATE: 07/22/18 TIME: 08:28 Assessment/Plan Lines/Catheters IV Catheter Type (from Nrs): Peripheral IV Barrow in Place (from [facility]): Yes Cont'd barrow catheter reason: other (indicate) (Prostate surgery) Assessment/Plan Chief Complaint/Hosp Course Patient is status post transurethral resection of prostate. He has continuous bladder irrigation and the return from the irrigation is clear pink. Continue t he bladder irrigation. Subjective 24 Hr Interval Summary Patient is status post transurethral resection of the prostate. He is comfortable and denies having any pain. Exam/Review of Systems Vital Signs Vitals Vital Signs Date Temp Pulse Resp B/P (MAP) Pulse Ox O2 O2 Flow FiO2 Time Delivery Rate 07/22/18 97.6 89 18 94/56 (69) 97 07:46 07/22/18 Room Air 00:24 07/21/18 3.0 23:19 Intake and Output 07/21/18 07/21/18 07/22/18 1515:00 23:00 07:00 IntakeIntake Total 2035 ml 7475 ml OutputOutput Total 1400 ml 6900 ml BalanceBalance 635 ml 575 ml Exam Free Text/Dictation The Barrow catheter is draining clear pink urine with the continuous bladder irrigation. Results Result Diagram: 07/21/18223007/21/182230 SUKHWINDER SIFUENTES MD Jul 22, 2018 08:30
[2018-07-22] MEDS: FERROUS SULFATE (EC) 325 MG TAB PO SCH (08:34)
[2018-07-22] MEDS: BENAZEPRIL 40 MG TAB PO SCH (08:34)
[2018-07-22] MEDS: ESCITALOPRAM 10 MG TAB PO SCH (08:35)
[2018-07-22] MEDS: DUTASTERIDE 0.5 MG CAP PO SCH (09:46)
[2018-07-22] MEDS: CHOLECALCIFEROL 400 UNITS TAB PO SCH (09:46)
[2018-07-22] MEDS: DONEPEZIL 10 MG TAB PO SCH (09:46)
[2018-07-22] MEDS: OLANZAPINE 2.5 MG TAB PO SCH ×3 (09:46→20:19)
[2018-07-22] MEDS: MEMANTINE 10 MG TAB PO SCH (09:46)
[2018-07-22] MEDS: traMADol 50 MG TAB PO PRN ×2 (09:46→17:13)
[2018-07-22] MEDS: DIVALPROEX (ER) 250 MG TAB PO SCH ×2 (11:04→20:19)
[2018-07-22] MEDS: ACETAMINOPHEN 325 MG TAB PO PRN (15:04)
--- NOTE | 2018-07-22 16:54 | PN ---
Date/Time of Note Date/Time of Note DATE: 07/22/18 TIME: 16:51 Assessment/Plan VTE Prophylaxis Risk score (from Ns)>0 risk: 5 SCD applied (from Ns): Yes Pharmacological prophylaxis: NA/contraindicated Pharm contraindication: surgical contra Lines/Catheters IV [facility] Type (from [facility]): Peripheral IV Urinary Cath still in place: Yes Reason Cath still needed: other (indicate) Assessment/Plan Hospital Course Patient is awake, alert, postoperative pain is well controlled, continued on bladder irrigation, 1 to 1 sitter due to dementia. Assessment/Plan - Enlarged prostate and Recurrent gross hematuria. s/p TURP, continues on bladder irrigation with Sarmiento catheter. Dr. Dolan is following in urology consultation. - Anemia of acute blood loss, continue to monitor H&H, transfuse as needed. - Benign prostatic hypertrophy. Continue Flomax and Proscar. - Preserved ejection fraction per recent echo - Hypertension. Continue Lotensin. - Dementia with behavioral disturbance. Continue Aricept, Namenda, Zyprexa and Thorazine as needed. - Depression. Continue Lexapro. Further recommendations based on clinical course. Plan of care discussed with Dr. Becker. Result Diagram: 07/21/18223007/21/182230 Results 24hrs Laboratory Tests Test 07/21/18 22:31 White Blood Count 3.7 L Red Blood Count 3.81 L Hemoglobin 10.5 L Hematocrit 33.6 L Mean Corpuscular Volume 88.2 Mean Corpuscular Hemoglobin 27.6 L Mean Corpuscular Hemoglobin Concent 31.3 L Red Cell Distribution Width 16.8 H Platelet Count 104 L Mean Platelet Volume 10.6 H Immature Granulocytes % 1.600 H Neutrophils % 77.1 H Lymphocytes % 16.4 Monocytes % 4.6 Eosinophils % 0.0 Basophils % 0.3 Nucleated Red Blood Cells % 0.0 Immature Granulocytes # 0.060 H Neutrophils # 2.8 Lymphocytes # 0.6 L Monocytes # 0.2 L Eosinophils # 0.0 Basophils # 0.0 Nucleated Red Blood Cells # 0.0 Sodium Level 139 Potassium Level 4.3 Chloride Level 101 Carbon Dioxide Level 31 Anion Gap 7 Blood Urea Nitrogen 12 Creatinine 0.74 Est Glomerular Filtrat Rate mL/min Glucose Level 168 Calcium Level 8.6 Exam/Review of Systems Exam Vitals Vital Signs Date Temp Pulse Resp B/P (MAP) Pulse Ox O2 O2 Flow FiO2 Time Delivery Rate 07/22/18 98.3 91 18 117/64 97 13:32 (81) 07/22/18 Nasal 2.0 08:00 Cannula Intake and Output 07/21/18 07/21/18 07/22/18 1515:00 23:00 07:00 IntakeIntake Total 2035 ml 7475 ml OutputOutput Total 1400 ml 6900 ml BalanceBalance 635 ml 575 ml Exam Constitutional: alert, oriented, demented Respiratory: clear to auscultation Cardiovascular: nl pulses Gastrointestinal: soft, non-tender Genitourinary - Male: other (Sarmiento catheter) Musculoskeletal: nl extremities to inspection Extremities: normal pulses Results Results 24hrs Laboratory Tests Test 07/21/18 22:31 White Blood Count 3.7 L Red Blood Count 3.81 L Hemoglobin 10.5 L Hematocrit 33.6 L Mean Corpuscular Volume 88.2 Mean Corpuscular Hemoglobin 27.6 L Mean Corpuscular Hemoglobin Concent 31.3 L Red Cell Distribution Width 16.8 H Platelet Count 104 L Mean Platelet Volume 10.6 H Immature Granulocytes % 1.600 H Neutrophils % 77.1 H Lymphocytes % 16.4 Monocytes % 4.6 Eosinophils % 0.0 Basophils % 0.3 Nucleated Red Blood Cells % 0.0 Immature Granulocytes # 0.060 H Neutrophils # 2.8 Lymphocytes # 0.6 L Monocytes # 0.2 L Eosinophils # 0.0 Basophils # 0.0 Nucleated Red Blood Cells # 0.0 Sodium Level 139 Potassium Level 4.3 Chloride Level 101 Carbon Dioxide Level 31 Anion Gap 7 Blood Urea Nitrogen 12 Creatinine 0.74 Est Glomerular Filtrat Rate mL/min Glucose Level 168 Calcium Level 8.6 Medications Medication Current Medications Morphine Sulfate (morphine) 2 mg Q4H PRN IV SEVERE PAIN LEVEL 7-10 Last administered on 07/22/18at 04:42; Admin Dose 2 MG; Start 07/19/18 at 13:30 Acetaminophen (Tylenol Tab) 650 mg Q6H PRN PO MILD PAIN LEVEL 1-3 Last administered on 07/22/18at 15:04; Admin Dose 650 MG; Start 07/19/18 at 13:30 Benazepril HCl (Lotensin) 40 mg DAILY PO Last administered on 07/22/18at 08:34; Admin Dose 40 MG; Start 07/20/18 at 09:00 Carvedilol (Coreg) 6.25 mg BID PO Last administered on 07/22/18 08:34; Admin Dose 6.25 MG; Start 07/19/18 at 21:00 Cholecalciferol (Vitamin D) 400 units DAILY PO Last administered on 07/22/18 09:46; Admin Dose 400 UNITS; Start 07/20/18 at 09:00 Divalproex Sodium (Depakote Er) 250 mg BID PO Last administered on 07/22/18 11:04; Admin Dose 250 MG; Start 07/19/18 at 21:00 Donepezil HCl (Aricept) 10 mg DAILY PO Last administered on 07/22/18 09:46; Admin Dose 10 MG; Start 07/20/18 at 09:00 Dutasteride (Avodart) 0.5 mg DAILY PO Last administered on 07/22/18 09:46; Admin Dose 0.5 MG; Start 07/20/18 at 09:00 Escitalopram Oxalate (Lexapro) 5 mg DAILY PO Last administered on 07/22/18 08:35; Admin Dose 5 MG; Start 07/20/18 at 09:00 Ferrous Sulfate (Ferrous Sulfate (Ec)) 325 mg DAILY PO Last administered on 07/22/18 08:34; Admin Dose 325 MG; Start 07/20/18 at 09:00 Hydrocortisone (Hydrocortisone 0.5% Cr) 1 applic QHS PRN TOP ITCHING; Start 07/19/18 at 13:30 Memantine (Namenda) 10 mg DAILY PO Last administered on 07/22/18 09:46; Admin Dose 10 MG; Start 07/20/18 at 09:00 Pantoprazole (Protonix Tab) 40 mg DAILY@0600 PO Last administered on 07/22/18 04:42; Admin Dose 40 MG; Start 07/20/18 at 06:00 Tamsulosin HCl (Flomax) 0.4 mg HS PO Last administered on 07/20/18 20:14; Admin Dose 0.4 MG; Start 07/19/18 at 21:00 Tramadol HCl (Ultram) 50 mg Q6H PRN PO PAIN 5-10/10 Last administered on 07/22/18 09:46; Admin Dose 50 MG; Start 07/19/18 at 13:30 Olanzapine (Zyprexa) 2.5 mg TID PO Last administered on 07/22/18at 12:45; Admin Dose 2.5 MG; Start 07/19/18 at 22:00 JOYCE CHOW Jul 22, 2018 16:54
--- NOTE | 2018-07-22 17:05 | RADRPT ---
Vent Rate: 81 bpm RR Interval: 0 msec TX Interval: 202 msec QRS Duration: 142 msec QT Interval: 424 msec QTC Interval: 492 msec P-R-T [place]: 56 - 52 - 37 degrees Normal sinus rhythm Right bundle branch block Abnormal ECG Electronically Signed By: Rudi Farah
[2018-07-22] MEDS: TAMSULOSIN (SR) 0.4 MG CAP PO SCH (20:19)
--- NOTE | 2018-07-22 20:30 | CONS ---
Assessment/Plan Assessment/Plan Hospital Course (Demo Recall) IMPRESSION: 1. Preoperative evaluation prior to a transurethral prostatectomy. Now postop s/p TURP 2. Hematuria, recurrent. 3. Hypertension, under reasonable control. 4. Dementia. 5. Anemia. 6. EKG with right bundle branch block pattern, negative troponins x3. NL EF by echo 06/01 Recc: -Continue benzapril/coreg -continue 3 way irrigation -pain control -Follow Hgb Consultation Date/Type/Reason Admit Date/Time Jul 21, 2018 at 08:05 Initial Consult Date 07/19/18 Type of Consult Cardiology Reason for Consultation pre-op Requesting Provider: MARTA MCGUIRE MD Date/Time of Note DATE: 07/22/18 TIME: 20:26 Exam/Review of Systems Vital Signs Vitals Vital Signs Date Temp Pulse Resp B/P (MAP) Pulse Ox O2 O2 Flow FiO2 Time Delivery Rate 07/22/18 98.1 90 18 101/64 95 19:32 (76) 07/22/18 Nasal 2.0 08:00 Cannula Intake and Output 07/21/18 07/21/18 07/22/18 1414:59 22:59 06:59 IntakeIntake Total 2035 ml 7475 ml OutputOutput Total 1400 ml 6900 ml BalanceBalance 635 ml 575 ml Exam Exam Review of Systems: CONSTITUTIONAL: No fevers, chills. PULMONARY: No sob CARDIOVASCULAR: No chest pain/palpitations GASTROINTESTINAL: No nausea/vomiting. GENITOURINARY: No hematuria/dysuria. MUSCULOSKELETAL: No myagias/arthalgias. PSYCHIATRIC: The patient denies depression. NEUROLOGIC: No weakness Constitutional: alert, oriented Psych: no complaints Head: normocephalic ENMT: mucosa pink and moist Neck: supple, jvd (9 cm water) Respiratory: clear to auscultation Cardiovascular: regular rate and rhythm Gastrointestinal: soft, non-tender Musculoskeletal: muscle tone (normal) Extremities: edema (none) Neurological: other (No focal deficits) Labs Result Diagram: 07/21/18223007/21/182230 Results 24hrs Laboratory Tests Test 07/21/18 22:31 White Blood Count 3.7 L Red Blood Count 3.81 L Hemoglobin 10.5 L Hematocrit 33.6 L Mean Corpuscular Volume 88.2 Mean Corpuscular Hemoglobin 27.6 L Mean Corpuscular Hemoglobin Concent 31.3 L Red Cell Distribution Width 16.8 H Platelet Count 104 L Mean Platelet Volume 10.6 H Immature Granulocytes % 1.600 H Neutrophils % 77.1 H Lymphocytes % 16.4 Monocytes % 4.6 Eosinophils % 0.0 Basophils % 0.3 Nucleated Red Blood Cells % 0.0 Immature Granulocytes # 0.060 H Neutrophils # 2.8 Lymphocytes # 0.6 L Monocytes # 0.2 L Eosinophils # 0.0 Basophils # 0.0 Nucleated Red Blood Cells # 0.0 Sodium Level 139 Potassium Level 4.3 Chloride Level 101 Carbon Dioxide Level 31 Anion Gap 7 Blood Urea Nitrogen 12 Creatinine 0.74 Est Glomerular Filtrat Rate mL/min Glucose Level 168 Calcium Level 8.6 Medications Medications Current Medications Morphine Sulfate (morphine) 2 mg Q4H PRN IV SEVERE PAIN LEVEL 7-10 Last administered on 07/22/18 04:42; Admin Dose 2 MG; Start 07/19/18 at 13:30 Acetaminophen (Tylenol Tab) 650 mg Q6H PRN PO MILD PAIN LEVEL 1-3 Last administered on 07/22/18 15:04; Admin Dose 650 MG; Start 07/19/18 at 13:30 Benazepril HCl (Lotensin) 40 mg DAILY PO Last administered on 07/22/18 08:34; Admin Dose 40 MG; Start 07/20/18 at 09:00 Carvedilol (Coreg) 6.25 mg BID PO Last administered on 07/22/18 20:21; Admin Dose 6.25 MG; Start 07/19/18 at 21:00 Cholecalciferol (Vitamin D) 400 units DAILY PO Last administered on 07/22/18 09:46; Admin Dose 400 UNITS; Start 07/20/18 at 09:00 Divalproex Sodium (Depakote Er) 250 mg BID PO Last administered on 07/22/18 20:19; Admin Dose 250 MG; Start 07/19/18 at 21:00 Donepezil HCl (Aricept) 10 mg DAILY PO Last administered on 07/22/18 09:46; Admin Dose 10 MG; Start 07/20/18 at 09:00 Dutasteride (Avodart) 0.5 mg DAILY PO Last administered on 07/22/18 09:46; Admin Dose 0.5 MG; Start 07/20/18 at 09:00 Escitalopram Oxalate (Lexapro) 5 mg DAILY PO Last administered on 07/22/18 08:35; Admin Dose 5 MG; Start 07/20/18 at 09:00 Ferrous Sulfate (Ferrous Sulfate (Ec)) 325 mg DAILY PO Last administered on 07/22/18 08:34; Admin Dose 325 MG; Start 07/20/18 at 09:00 Hydrocortisone (Hydrocortisone 0.5% Cr) 1 applic QHS PRN TOP ITCHING; Start 07/19/18 at 13:30 Memantine (Namenda) 10 mg DAILY PO Last administered on 07/22/18 09:46; Admin Dose 10 MG; Start 07/20/18 at 09:00 Pantoprazole (Protonix Tab) 40 mg DAILY@0600 PO Last administered on 07/22/18 04:42; Admin Dose 40 MG; Start 07/20/18 at 06:00 Tamsulosin HCl (Flomax) 0.4 mg HS PO Last administered on 07/22/18 20:19; Admin Dose 0.4 MG; Start 07/19/18 at 21:00 Tramadol HCl (Ultram) 50 mg Q6H PRN PO PAIN 5-10 Last administered on 07/22/18 17:13; Admin Dose 50 MG; Start 07/19/18 at 13:30 Olanzapine (Zyprexa) 2.5 mg TID PO Last administered on 07/22/18 20:19; Admin Dose 2.5 MG; Start 07/19/18 at 22:00 LION ROGERS Jul 22, 2018 20:30
[2018-07-23 00:10] VITALS: BP 120/72; PULSE 94; RESP 19
[2018-07-23 02:43] VITALS: BP 114/57; PULSE 89; RESP 18
[2018-07-23] MEDS: PANTOPRAZOLE (EC) 40 MG TAB PO SCH (05:43)
[2018-07-23 06:43] VITALS: BP 101/52; PULSE 80; RESP 18
[2018-07-23 08:00] VITALS: BP 103/63; PULSE 86; RESP 18
--- NOTE | 2018-07-23 08:19 | PN ---
Date/Time of Note Date/Time of Note DATE: 07/23/18 TIME: 08:17 Assessment/Plan Lines/Catheters IV Catheter Type (from [facility]): Saline Lock Sarmiento in Place (from [facility]): Yes Assessment/Plan Chief Complaint/Hosp Course Patient is status post transurethral resection of prostate. Since the return from the irrigation is water clear as stop the irrigation. I will check him later on and if the urine is clear we will discontinue the Sarmiento catheter. Subjective 24 Hr Interval Summary Patient is post transurethral resection of the prostate. He is calm, however he tries some time to pull on his catheter. He has a sitter watching over him Exam/Review of Systems Vital Signs Vitals Vital Signs Date Temp Pulse Resp B/P (MAP) Pulse Ox O2 O2 Flow FiO2 Time Delivery Rate 07/23/18 98.1 80 18 101/52 94 06:43 (68) 07/22/18 Nasal 2.0 21:54 Cannula Intake and Output 07/22/18 07/22/18 07/23/18 1414:59 22:59 06:59 IntakeIntake Total 1320 ml 5100 ml 600 ml OutputOutput Total 3950 ml 2600 ml 550 ml BalanceBalance -2630 ml 2500 ml 50 ml Exam Free Text/Dictation The return from the irrigation is water clear. Therefore I stopped the irrigation and if the urine remains clear we will discontinue the Sarmiento catheter. Results Result Diagram: 07/23/18 0452 07/23/18 0452 SUKHWINDER SIFUENTES MD Jul 23, 2018 08:19
[2018-07-23] MEDS ORDERED: DOCUSATE SODIUM 100 MG CAP PO PRN (08:30)
[2018-07-23] MEDS: OLANZAPINE 2.5 MG TAB PO SCH ×3 (08:55→21:04)
[2018-07-23] MEDS: DUTASTERIDE 0.5 MG CAP PO SCH (08:55)
[2018-07-23] MEDS: DONEPEZIL 10 MG TAB PO SCH (08:55)
[2018-07-23] MEDS: ESCITALOPRAM 10 MG TAB PO SCH (08:55)
[2018-07-23] MEDS: FERROUS SULFATE (EC) 325 MG TAB PO SCH (08:55)
[2018-07-23] MEDS: MEMANTINE 10 MG TAB PO SCH (08:55)
[2018-07-23] MEDS: DIVALPROEX (ER) 250 MG TAB PO SCH ×2 (08:55→21:23)
[2018-07-23] MEDS: CHOLECALCIFEROL 400 UNITS TAB PO SCH (08:56)
[2018-07-23] MEDS: BENAZEPRIL 40 MG TAB PO SCH (09:00)
[2018-07-23] MEDS: traMADol 50 MG TAB PO PRN ×2 (09:04→15:55)
[2018-07-23] MEDS: morphine 2 MG INJ IV PRN ×2 (10:29→21:24)
--- NOTE | 2018-07-23 11:45 | PN ---
Date/Time of Note Date/Time of Note DATE: 07/23/18 TIME: 11:45 Assessment/Plan VTE Prophylaxis Risk score (from [facility])>0 risk: 9 SCD applied (from [facility]): Yes SCD contraindicated: other Pharmacological prophylaxis: other Pharm contraindication: other Lines/Catheters IV Catheter Type (from [facility]): Saline Lock Urinary Cath still in place: Yes Reason Cath still needed: urinary retention Assessment/Plan Assessment/Plan - Enlarged prostate and Recurrent gross hematuria. s/p TURP, continues on blad saima irrigation with Sarmiento catheter. Dr. Dolan is following in urology consultation. - Anemia of acute blood loss, continue to monitor H&H, transfuse as needed. - Benign prostatic hypertrophy. Continue Flomax and Proscar. - Preserved ejection fraction per recent echo - Hypertension. Continue Lotensin. - Dementia with behavioral disturbance. Continue Aricept, Namenda, Zyprexa and Thorazine as needed. - Depression. Continue Lexapro. Further recommendations based on clinical course. Plan of care discussed with Dr. Becker. Result Diagram: 07/23/18 0452 07/23/18 0452 Results 24hrs Laboratory Tests Test 07/23/18 04:52 White Blood Count 6.0 # Red Blood Count 3.03 #L Hemoglobin 8.5 L Hematocrit 26.5 #L Mean Corpuscular Volume 87.5 Mean Corpuscular Hemoglobin 28.1 L Mean Corpuscular Hemoglobin Concent 32.1 Red Cell Distribution Width 17.0 H Platelet Count 97 L Mean Platelet Volume 11.2 H Immature Granulocytes % 1.000 H Neutrophils % 74.0 Lymphocytes % 10.4 L Monocytes % 14.2 H Eosinophils % 0.2 Basophils % 0.2 Nucleated Red Blood Cells % 0.0 Immature Granulocytes # 0.060 H Neutrophils # 4.4 Lymphocytes # 0.6 L Monocytes # 0.9 Eosinophils # 0.0 Basophils # 0.0 Nucleated Red Blood Cells # 0.0 Sodium Level 138 Potassium Level 4.3 Chloride Level 101 Carbon Dioxide Level 30 Anion Gap 7 Blood Urea Nitrogen 13 Creatinine 0.70 Est Glomerular Filtrat Rate mL/min Glucose Level 132 Calcium Level 8.4 Subjective 24 Hr Interval Summary Free Text/Dictation nad sitter at bed side; no fall or injury afebrile no hematuria reported no new issues reported last night dw staff Eyes: no complaints ENT: no complaints Respiratory: no complaints Cardiovascular: no complaints Gastrointestinal: no complaints Genitourinary: no complaints Musculoskeletal: no complaints Skin: no complaints Neurologic: no complaints Exam/Review of Systems Exam Vitals Vital Signs Date Temp Pulse Resp B/P (MAP) Pulse Ox O2 O2 Flow FiO2 Time Delivery Rate 07/23/18 98.1 80 18 101/52 94 06:43 (68) 07/22/18 Nasal 2.0 21:54 Cannula Intake and Output 07/22/18 07/22/18 07/23/18 1515:00 23:00 07:00 IntakeIntake Total 1320 ml 5100 ml 600 ml OutputOutput Total 3950 ml 2600 ml 550 ml BalanceBalance -2630 ml 2500 ml 50 ml Constitutional: alert, well developed Psych: nl mood/affect Head: atraumatic Eyes: nl lids ENMT: nl external ears & nose Neck: non-tender Respiratory: clear to auscultation Cardiovascular: regular rate and rhythm, other (s1s2) Gastrointestinal: soft, non-tender Musculoskeletal: nl extremities to inspection Extremities: normal pulses Neurological: nl speech, confused Skin: nl turgor Lymph: nontender Results Results 24hrs Laboratory Tests Test 07/23/18 04:52 White Blood Count 6.0 # Red Blood Count 3.03 #L Hemoglobin 8.5 L Hematocrit 26.5 #L Mean Corpuscular Volume 87.5 Mean Corpuscular Hemoglobin 28.1 L Mean Corpuscular Hemoglobin Concent 32.1 Red Cell Distribution Width 17.0 H Platelet Count 97 L Mean Platelet Volume 11.2 H Immature Granulocytes % 1.000 H Neutrophils % 74.0 Lymphocytes % 10.4 L Monocytes % 14.2 H Eosinophils % 0.2 Basophils % 0.2 Nucleated Red Blood Cells % 0.0 Immature Granulocytes # 0.060 H Neutrophils # 4.4 Lymphocytes # 0.6 L Monocytes # 0.9 Eosinophils # 0.0 Basophils # 0.0 Nucleated Red Blood Cells # 0.0 Sodium Level 138 Potassium Level 4.3 Chloride Level 101 Carbon Dioxide Level 30 Anion Gap 7 Blood Urea Nitrogen 13 Creatinine 0.70 Est Glomerular Filtrat Rate mL/min Glucose Level 132 Calcium Level 8.4 Medications Medication Current Medications Morphine Sulfate (morphine) 2 mg Q4H PRN IV SEVERE PAIN LEVEL 7-10 Last administered on 07/23/18at 10:29; Admin Dose 2 MG; Start 07/19/18 at 13:30 Acetaminophen (Tylenol Tab) 650 mg Q6H PRN PO MILD PAIN LEVEL 1-3 Last administered on 07/22/18 15:04; Admin Dose 650 MG; Start 07/19/18 at 13:30 Benazepril HCl (Lotensin) 40 mg DAILY PO Last administered on 07/22/18 08:34; Admin Dose 40 MG; Start 07/20/18 at 09:00 Carvedilol (Coreg) 6.25 mg BID PO Last administered on 07/23/18 08:59; Admin Dose 6.25 MG; Start 07/19/18 at 21:00 Cholecalciferol (Vitamin D) 400 units DAILY PO Last administered on 07/23/18 08:56; Admin Dose 400 UNITS; Start 07/20/18 at 09:00 Divalproex Sodium (Depakote Er) 250 mg BID PO Last administered on 07/23/18 08:55; Admin Dose 250 MG; Start 07/19/18 at 21:00 Donepezil HCl (Aricept) 10 mg DAILY PO Last administered on 07/23/18 08:55; Admin Dose 10 MG; Start 07/20/18 at 09:00 Dutasteride (Avodart) 0.5 mg DAILY PO Last administered on 07/23/18 08:55; Admin Dose 0.5 MG; Start 07/20/18 at 09:00 Escitalopram Oxalate (Lexapro) 5 mg DAILY PO Last administered on 07/23/18 08:55; Admin Dose 5 MG; Start 07/20/18 at 09:00 Ferrous Sulfate (Ferrous Sulfate (Ec)) 325 mg DAILY PO Last administered on 07/23/18 08:55; Admin Dose 325 MG; Start 07/20/18 at 09:00 Hydrocortisone (Hydrocortisone 0.5% Cr) 1 applic QHS PRN TOP ITCHING; Start 07/19/18 at 13:30 Memantine (Namenda) 10 mg DAILY PO Last administered on 07/23/18 08:55; Admin Dose 10 MG; Start 07/20/18 at 09:00 Pantoprazole (Protonix Tab) 40 mg DAILY@0600 PO Last administered on 07/23/18 05:43; Admin Dose 40 MG; Start 07/20/18 at 06:00 Tamsulosin HCl (Flomax) 0.4 mg HS PO Last administered on 07/22/18at 20:19; Admin Dose 0.4 MG; Start 07/19/18 at 21:00 Tramadol HCl (Ultram) 50 mg Q6H PRN PO PAIN 5-01/20 Last administered on 07/23/18at 09:04; Admin Dose 50 MG; Start 07/19/18 at 13:30 Olanzapine (Zyprexa) 2.5 mg TID PO Last administered on 07/23/18at 08:55; Admin Dose 2.5 MG; Start 07/19/18 at 22:00 Docusate Sodium (Colace) 100 mg BID PRN PO CONSTIPATION; Start 07/23/18 at 08:30 FROYLAN ALVAREZ Jul 23, 2018 11:45
[2018-07-23 14:00] VITALS: BP 106/69; PULSE 92; RESP 18
--- NOTE | 2018-07-23 18:17 | CONS ---
Assessment/Plan Assessment/Plan Hospital Course (Demo Recall) IMPRESSION: 1. Preoperative evaluation prior to a transurethral prostatectomy. Now postop s/p TURP 2. Hematuria, recurrent. 3. Hypertension, under reasonable control. 4. Dementia. 5. Anemia. 6. EKG with right bundle branch block pattern, negative troponins x3. NL EF by echo 06/01 Recc: -Continue benzapril/coreg -continue 3 way irrigation -pain control -Follow Hgb Consultation Date/Type/Reason Admit Date/Time Jul 21, 2018 at 08:05 Initial Consult Date 07/19/18 Type of Consult Cardiology Reason for Consultation Preop Requesting Provider: MARTA MCGUIRE MD Date/Time of Note DATE: 07/23/18 TIME: 18:16 Exam/Review of Systems Vital Signs Vitals Vital Signs Date Temp Pulse Resp B/P (MAP) Pulse Ox O2 O2 Flow FiO2 Time Delivery Rate 07/23/18 98.2 92 18 106/69 95 14:00 (81) 07/22/18 Nasal 2.0 21:54 Cannula Intake and Output 07/22/18 07/22/18 07/23/18 1515:00 23:00 07:00 IntakeIntake Total 1320 ml 5100 ml 600 ml OutputOutput Total 3950 ml 2600 ml 550 ml BalanceBalance -2630 ml 2500 ml 50 ml Exam Exam Review of Systems: CONSTITUTIONAL: No fevers, chills. PULMONARY: No sob CARDIOVASCULAR: No chest pain/palpitations GASTROINTESTINAL: No nausea/vomiting. GENITOURINARY: No hematuria/dysuria. MUSCULOSKELETAL: No myagias/arthalgias. PSYCHIATRIC: The patient denies depression. NEUROLOGIC: No weakness Constitutional: alert Psych: no complaints Head: normocephalic ENMT: mucosa pink and moist Neck: supple, jvd (9 cm water) Respiratory: diminished breath sounds Cardiovascular: regular rate and rhythm Gastrointestinal: soft, non-tender Musculoskeletal: muscle tone (normal) Extremities: edema (none) Neurological: other (No focal deficits) Labs Result Diagram: 07/23/18 0452 07/23/18 0452 Results 24hrs Laboratory Tests Test 07/23/18 04:52 White Blood Count 6.0 # Red Blood Count 3.03 #L Hemoglobin 8.5 L Hematocrit 26.5 #L Mean Corpuscular Volume 87.5 Mean Corpuscular Hemoglobin 28.1 L Mean Corpuscular Hemoglobin Concent 32.1 Red Cell Distribution Width 17.0 H Platelet Count 97 L Mean Platelet Volume 11.2 H Immature Granulocytes % 1.000 H Neutrophils % 74.0 Lymphocytes % 10.4 L Monocytes % 14.2 H Eosinophils % 0.2 Basophils % 0.2 Nucleated Red Blood Cells % 0.0 Immature Granulocytes # 0.060 H Neutrophils # 4.4 Lymphocytes # 0.6 L Monocytes # 0.9 Eosinophils # 0.0 Basophils # 0.0 Nucleated Red Blood Cells # 0.0 Sodium Level 138 Potassium Level 4.3 Chloride Level 101 Carbon Dioxide Level 30 Anion Gap 7 Blood Urea Nitrogen 13 Creatinine 0.70 Est Glomerular Filtrat Rate mL/min Glucose Level 132 Calcium Level 8.4 Medications Medications Current Medications Morphine Sulfate (morphine) 2 mg Q4H PRN IV SEVERE PAIN LEVEL 7-10 Last administered on 07/23/18 10:29; Admin Dose 2 MG; Start 07/19/18 at 13:30 Acetaminophen (Tylenol Tab) 650 mg Q6H PRN PO MILD PAIN LEVEL 1-3 Last administered on 07/22/18 15:04; Admin Dose 650 MG; Start 07/19/18 at 13:30 Benazepril HCl (Lotensin) 40 mg DAILY PO Last administered on 07/22/18 08:34; Admin Dose 40 MG; Start 07/20/18 at 09:00 Carvedilol (Coreg) 6.25 mg BID PO Last administered on 07/23/18 08:59; Admin Dose 6.25 MG; Start 07/19/18 at 21:00 Cholecalciferol (Vitamin D) 400 units DAILY PO Last administered on 07/23/18 08:56; Admin Dose 400 UNITS; Start 07/20/18 at 09:00 Divalproex Sodium (Depakote Er) 250 mg BID PO Last administered on 07/23/18 08:55; Admin Dose 250 MG; Start 07/19/18 at 21:00 Donepezil HCl (Aricept) 10 mg DAILY PO Last administered on 07/23/18 08:55; Admin Dose 10 MG; Start 07/20/18 at 09:00 Dutasteride (Avodart) 0.5 mg DAILY PO Last administered on 07/23/18 08:55; Admin Dose 0.5 MG; Start 07/20/18 at 09:00 Escitalopram Oxalate (Lexapro) 5 mg DAILY PO Last administered on 07/23/18 08:55; Admin Dose 5 MG; Start 07/20/18 at 09:00 Ferrous Sulfate (Ferrous Sulfate (Ec)) 325 mg DAILY PO Last administered on 07/23/18 08:55; Admin Dose 325 MG; Start 07/20/18 at 09:00 Hydrocortisone (Hydrocortisone 0.5% Cr) 1 applic QHS PRN TOP ITCHING; Start 07/19/18 at 13:30 Memantine (Namenda) 10 mg DAILY PO Last administered on 07/23/18 08:55; Admin Dose 10 MG; Start 07/20/18 at 09:00 Pantoprazole (Protonix Tab) 40 mg DAILY@0600 PO Last administered on 07/23/18 05:43; Admin Dose 40 MG; Start 07/20/18 at 06:00 Tamsulosin HCl (Flomax) 0.4 mg HS PO Last administered on 07/22/18 20:19; Admin Dose 0.4 MG; Start 07/19/18 at 21:00 Tramadol HCl (Ultram) 50 mg Q6H PRN PO PAIN 5-10 Last administered on 07/23/18 15:55; Admin Dose 50 MG; Start 07/19/18 at 13:30 Olanzapine (Zyprexa) 2.5 mg TID PO Last administered on 07/23/18 13:55; Admin Dose 2.5 MG; Start 07/19/18 at 22:00 Docusate Sodium (Colace) 100 mg BID PRN PO CONSTIPATION; Start 07/23/18 at 08:30 LION ROGERS Jul 23, 2018 18:17
[2018-07-23 19:33] VITALS: BP 132/64; PULSE 94; RESP 18
[2018-07-23] MEDS: TAMSULOSIN (SR) 0.4 MG CAP PO SCH (21:05)
[2018-07-24 01:45] VITALS: BP 138/68; PULSE 90; RESP 20
[2018-07-24] MEDS: morphine 2 MG INJ IV PRN ×2 (02:31→10:25)
[2018-07-24] MEDS: PANTOPRAZOLE (EC) 40 MG TAB PO SCH (06:03)
[2018-07-24 07:31] VITALS: BP 119/59; PULSE 109; RESP 20
[2018-07-24] MEDS: traMADol 50 MG TAB PO PRN ×2 (08:08→10:28)
[2018-07-24] MEDS: DUTASTERIDE 0.5 MG CAP PO SCH (08:39)
[2018-07-24] MEDS: DIVALPROEX (ER) 250 MG TAB PO SCH ×2 (08:39→21:12)
[2018-07-24] MEDS: FERROUS SULFATE (EC) 325 MG TAB PO SCH (08:40)
[2018-07-24] MEDS: MEMANTINE 10 MG TAB PO SCH (08:40)
[2018-07-24] MEDS: CHOLECALCIFEROL 400 UNITS TAB PO SCH (08:40)
[2018-07-24] MEDS: OLANZAPINE 2.5 MG TAB PO SCH ×3 (08:40→21:12)
[2018-07-24] MEDS: DONEPEZIL 10 MG TAB PO SCH (08:40)
[2018-07-24] MEDS: ESCITALOPRAM 10 MG TAB PO SCH (08:40)
[2018-07-24] MEDS: BENAZEPRIL 40 MG TAB PO SCH (09:00)
[2018-07-24 15:02] VITALS: BP 107/73; PULSE 113; RESP 20
--- NOTE | 2018-07-24 17:50 | CONS ---
Assessment/Plan Assessment/Plan Assessment/Plan (Daily) S/p TURP Hypertension Dementia. Anemia. Continue Coreg and Benazepril Continue Flomax and Avodart Continue Aricept and Namenda Consultation Date/Type/Reason Admit Date/Time Jul 21, 2018 at 08:05 Type of Consult Cardiology Date/Time of Note DATE: 07/24/18 TIME: 17:48 Past Medical History Home Meds Reported Medications Acetaminophen* (Tylenol*) 325 Mg Tablet, 650 MG PO Q6H PRN for MILD PAIN LEVEL 1-3, TAB AND FEVER>101F 07/19/18 Hydrocortisone* Topical (Hydrocortisone* Topical) 0.5%-28.35 Gm Cream..g., 1 APPLIC TOP QHS PRN for ITCHING, TUB 07/19/18 Divalproex Sodium* (Depakote ER*) 250 Mg Tabsr, 250 MG PO BID, #30 TAB.SA 07/19/18 Tramadol Hcl* (Ultram*) 50 Mg Tablet, 50 MG PO Q6H PRN for PAIN 5-01/20, TAB 07/19/18 Pantoprazole* (Protonix*) 40 Mg Tablet.dr, 40 MG PO DAILY, TAB 07/01/18 Ferrous Sulfate* (Ferrous Sulfate*) 325 Mg Tabec, 325 MG PO DAILY, TAB 07/01/18 Simvastatin* (Zocor*) 40 Mg Tablet, 40 MG PO QHS, #30 TAB 05/13/18 Risperidone* (Risperdal*) 1 Mg Tablet, 1 MG PO DAILY, TAB 05/13/18 Memantine* (Namenda*) 10 Mg Tablet, 10 MG PO DAILY, #30 TAB 05/13/18 Benazepril Hcl* (Lotensin*) 40 Mg Tablet, 40 MG PO DAILY, #30 TAB HOLD FOR SBP<110 OR MD<60 05/13/18 Escitalopram Oxalate* (Lexapro*) 5 Mg Tablet, 5 MG PO DAILY, #30 TAB 05/13/18 Tamsulosin Hcl* (Flomax*) 0.4 Mg Cap.er.24h, 0.4 MG PO HS, CAP 05/13/18 Carvedilol* (Coreg*) 6.25 Mg Tablet, 6.25 MG PO BID, #60 TAB HOLD FOR SBP<110 OR MD<60 05/13/18 Cholecalciferol* (Vitamin D*) 400 Unit Tablet, 400 UNIT PO DAILY, TAB 05/13/18 Dutasteride* (Avodart*) 0.5 Mg Capsule, 0.5 MG PO DAILY, CAP 05/13/18 Donepezil* (Aricept*) 10 Mg Tablet, 10 MG PO DAILY, TAB 05/13/18 Discontinued Reported Medications Aspirin (Low Dose Aspirin) 81 Mg Tablet.dr, 81 MG PO DAILY, #30 TAB 07/01/18 Docusate Sodium* (Colace*) 250 Mg Capsule, 250 MG PO TID, #60 CAP 05/13/18 Acetaminophen* (Acetaminophen*) 650 Mg Tablet, 650 MG PO Q6H PRN for PAIN LEVEL 1-01/20, #30 TAB 05/13/18 Medications Current Medications Morphine Sulfate (morphine) 2 mg Q4H PRN IV SEVERE PAIN LEVEL 7-10 Last administered on 07/24/18 10:25; Admin Dose 2 MG; Start 07/19/18 at 13:30 Acetaminophen (Tylenol Tab) 650 mg Q6H PRN PO MILD PAIN LEVEL 1-3 Last administered on 07/22/18at 15:04; Admin Dose 650 MG; Start 07/19/18 at 13:30 Benazepril HCl (Lotensin) 40 mg DAILY PO Last administered on 07/22/18at 08:34; Admin Dose 40 MG; Start 07/20/18 at 09:00 Carvedilol (Coreg) 6.25 mg BID PO Last administered on 07/24/18at 08:41; Admin Dose 6.25 MG; Start 07/19/18 at 21:00 Cholecalciferol (Vitamin D) 400 units DAILY PO Last administered on 07/24/18at 08:40; Admin Dose 400 UNITS; Start 07/20/18 at 09:00 Divalproex Sodium (Depakote Er) 250 mg BID PO Last administered on 07/24/18 08:39; Admin Dose 250 MG; Start 07/19/18 at 21:00 Donepezil HCl (Aricept) 10 mg DAILY PO Last administered on 07/24/18 08:40; Admin Dose 10 MG; Start 07/20/18 at 09:00 Dutasteride (Avodart) 0.5 mg DAILY PO Last administered on 07/24/18 08:39; Admin Dose 0.5 MG; Start 07/20/18 at 09:00 Escitalopram Oxalate (Lexapro) 5 mg DAILY PO Last administered on 07/24/18 08 :40; Admin Dose 5 MG; Start 07/20/18 at 09:00 Ferrous Sulfate (Ferrous Sulfate (Ec)) 325 mg DAILY PO Last administered on 07/24/18 08:40; Admin Dose 325 MG; Start 07/20/18 at 09:00 Hydrocortisone (Hydrocortisone 0.5% Cr) 1 applic QHS PRN TOP ITCHING; Start 07/19/18 at 13:30 Memantine (Namenda) 10 mg DAILY PO Last administered on 07/24/18 08:40; Admin Dose 10 MG; Start 07/20/18 at 09:00 Pantoprazole (Protonix Tab) 40 mg DAILY@0600 PO Last administered on 07/24/18at 06:03; Admin Dose 40 MG; Start 07/20/18 at 06:00 Tamsulosin HCl (Flomax) 0.4 mg HS PO Last administered on 07/23/18at 21:05; Admin Dose 0.4 MG; Start 07/19/18 at 21:00 Tramadol HCl (Ultram) 50 mg Q6H PRN PO PAIN 5-1010 Last administered on 07/24/18 08:08; Admin Dose 50 MG; Start 07/19/18 at 13:30 Olanzapine (Zyprexa) 2.5 mg TID PO Last administered on 07/24/18 08:40; Admin Dose 2.5 MG; Start 07/19/18 at 22:00 Docusate Sodium (Colace) 100 mg BID PRN PO CONSTIPATION; Start 07/23/18 at 08:30 Allergies: Coded Allergies: No Known Allergy (Unverified , 07/19/18) Past Surgical History Past Surgical Hx: other (History of prostate surgery for BPH) Social History Alcohol Use: none Smoking Status: Former smoker Drug Use: none Exam/Review of Systems Vital Signs Vitals Vital Signs Date Temp Pulse Resp B/P (MAP) Pulse Ox O2 O2 Flow FiO2 Time Delivery Rate 07/24/18 99.9 113 20 107/73 91 15:02 (84) 07/24/18 Room Air 01:45 07/22/18 2.0 21:54 Intake and Output 407/23/18 07/24/18 1515:00 23:00 07:00 IntakeIntake Total 250 ml 380 ml OutputOutput Total 4800 ml 5400 ml 1500 ml BalanceBalance -4800 ml -5150 ml -1120 ml Exam Head: normocephalic, atraumatic Neck: supple, non-tender Respiratory: clear to auscultation Cardiovascular: regular rate and rhythm (no m/r/g) Gastrointestinal: soft, nl liver, spleen Extremities: normal pulses Labs Result Diagram: 07/24/18 0433 07/23/18 0452 Results 24hrs Laboratory Tests Test 07/24/18 04:33 White Blood Count 4.4 #L Red Blood Count 3.11 L Hemoglobin 8.5 L Hematocrit 27.0 L Mean Corpuscular Volume 86.8 Mean Corpuscular Hemoglobin 27.3 L Mean Corpuscular Hemoglobin Concent 31.5 L Red Cell Distribution Width 17.1 H Platelet Count 99 L Mean Platelet Volume 11.1 H Immature Granulocytes % 4.800 H Neutrophils % 57.9 Lymphocytes % 16.2 Monocytes % 20.1 H Eosinophils % 0.5 Basophils % 0.5 Nucleated Red Blood Cells % 0.5 H Immature Granulocytes # 0.210 H Neutrophils # 2.5 Lymphocytes # 0.7 L Monocytes # 0.9 Eosinophils # 0.0 Basophils # 0.0 Nucleated Red Blood Cells # 0.0 Medications Medications Current Medications Morphine Sulfate (morphine) 2 mg Q4H PRN IV SEVERE PAIN LEVEL 7-10 Last administered on 07/24/18at 10:25; Admin Dose 2 MG; Start 07/19/18 at 13:30 Acetaminophen (Tylenol Tab) 650 mg Q6H PRN PO MILD PAIN LEVEL 1-3 Last administered on 07/22/18at 15:04; Admin Dose 650 MG; Start 07/19/18 at 13:30 Benazepril HCl (Lotensin) 40 mg DAILY PO Last administered on 07/22/18 08:34; Admin Dose 40 MG; Start 07/20/18 at 09:00 Carvedilol (Coreg) 6.25 mg BID PO Last administered on 07/24/18 08:41; Admin Dose 6.25 MG; Start 07/19/18 at 21:00 Cholecalciferol (Vitamin D) 400 units DAILY PO Last administered on 07/24/18 08:40; Admin Dose 400 UNITS; Start 07/20/18 at 09:00 Divalproex Sodium (Depakote Er) 250 mg BID PO Last administered on 07/24/18 08:39; Admin Dose 250 MG; Start 07/19/18 at 21:00 Donepezil HCl (Aricept) 10 mg DAILY PO Last administered on 07/24/18 08:40; Admin Dose 10 MG; Start 07/20/18 at 09:00 Dutasteride (Avodart) 0.5 mg DAILY PO Last administered on 07/24/18 08:39; Admin Dose 0.5 MG; Start 07/20/18 at 09:00 Escitalopram Oxalate (Lexapro) 5 mg DAILY PO Last administered on 07/24/18 08:40; Admin Dose 5 MG; Start 07/20/18 at 09:00 Ferrous Sulfate (Ferrous Sulfate (Ec)) 325 mg DAILY PO Last administered on 07/24/18 08:40; Admin Dose 325 MG; Start 07/20/18 at 09:00 Hydrocortisone (Hydrocortisone 0.5% Cr) 1 applic QHS PRN TOP ITCHING; Start 07/19/18 at 13:30 Memantine (Namenda) 10 mg DAILY PO Last administered on 07/24/18 08:40; Admin Dose 10 MG; Start 07/20/18 at 09:00 Pantoprazole (Protonix Tab) 40 mg DAILY@0600 PO Last administered on 07/24/18 06:03; Admin Dose 40 MG; Start 07/20/18 at 06:00 Tamsulosin HCl (Flomax) 0.4 mg HS PO Last administered on 07/23/18 21:05; Admin Dose 0.4 MG; Start 07/19/18 at 21:00 Tramadol HCl (Ultram) 50 mg Q6H PRN PO PAIN 5-10/10 Last administered on 07/24/18 08:08; Admin Dose 50 MG; Start 07/19/18 at 13:30 Olanzapine (Zyprexa) 2.5 mg TID PO Last administered on 07/24/18 08:40; Admin Dose 2.5 MG; Start 07/19/18 at 22:00 Docusate Sodium (Colace) 100 mg BID PRN PO CONSTIPATION; Start 07/23/18 at 08:30 LARISSA BAL M.D. Jul 24, 2018 17:50
--- NOTE | 2018-07-24 18:21 | PN ---
Date/Time of Note Date/Time of Note DATE: 07/24/18 TIME: 18:18 Assessment/Plan Lines/Catheters IV Catheter Type (from Nrs): Saline Lock Barrow in Place (from Nrs): Yes Cont'd barrow catheter reason: other (indicate) (Urological surgery) Assessment/Plan Chief Complaint/Hosp Course Patient is status post transurethral resection of prostate. The bladder irrigation has been stopped and the urine is blood-tinged. We will keep the Barrow catheter in until the urine is clear. Then we will remove the catheter and see if he can urinate on his own. The pathology report is still pending Subjective 24 Hr Interval Summary The patient states that he is comfortable and has no pain. But he is confused and is being watched by the sitter so he does not pull his catheter and get out of bed by himself. Exam/Review of Systems Vital Signs Vitals Vital Signs Date Temp Pulse Resp B/P (MAP) Pulse Ox O2 O2 Flow FiO2 Time Delivery Rate 07/24/18 99.9 113 20 107/73 91 15:02 (84) 07/24/18 Room Air 01:45 07/22/18 2.0 21:54 Intake and Output 07/23/18 07/23/18 07/24/18 1515:00 23:00 07:00 IntakeIntake Total 250 ml 380 ml OutputOutput Total 4800 ml 5400 ml 1500 ml BalanceBalance -4800 ml -5150 ml -1120 ml Exam Free Text/Dictation The bladder irrigation has been stopped and the Barrow catheter is draining well. The urine is blood-tinged and there are no blood clots. Results Result Diagram: 07/24/18 0433 07/23/18 0452 SUKHWINDER SIFUENTES MD Jul 24, 2018 18:21
[2018-07-24 19:23] VITALS: BP 124/60; PULSE 102; RESP 22
[2018-07-24] MEDS: TAMSULOSIN (SR) 0.4 MG CAP PO SCH (21:12)
--- NOTE | 2018-07-25 01:04 | PN ---
DATE: 07/24/2018 SUBJECTIVE: Follow up on recent hematuria, anemia of acute blood loss, BPH, hypertension, dementia, behavior disturbance and depression. The patient continues to require bladder irrigation. Hematuria still present. The patient remains awake, alert. The patient does have intermittent low grade feve r, T-max 99.9. No reported vomiting. No reported diarrhea. No reported leg edema. No reported res ting leg pain. No report of any acute skin rash. PHYSICAL EXAMINATION: GENERAL: The patient is awake, alert, follows simple commands. VITAL SIGNS: T-max of 99.9, pulse 102, respirations 22, blood pressure 124/60, O2 saturation 91 to 9 5% on room air. HEENT: Atraumatic, normocephalic. Conjunctivae are normal. Oropharynx clear. NECK: Supple, no mass, no thyromegaly. CHEST: Fairly clear. No use of accessory muscles. CARDIOVASCULAR: Regular rate and rhythm. S1, S2 normal, no murmur. ABDOMEN: Soft, nondistended, nontender. Bowel sounds plus. EXTREMITIES: No leg edema. NEUROLOGIC: The patient is awake, alert, follows simple commands and moves all extremities. LABORATORY DATA: Done this morning, WBC 4.4, hemoglobin 8.5, platelet 99, down from 115 on 9. Sodium 138, potassium 4.3, BUN 13, creatinine 0.7, glucose 132, calcium 8.4. IMPRESSION: 1. Recurrent hematuria. Continue bladder irrigation. Urine culture is negative so far. The patien t is being followed by Dr. Dolan. The patient is status post TURP. Pathology is still pending. T he patient underwent TURP on 07/21/2018. 2. Hypertension. Blood pressure reasonably controlled with benazepril and carvedilol. 3. Benign prostatic hypertrophy status post surgery. Continue Flomax and Avodart. 4. Depression, stable with Lexapro. 5. Dementia with behavior disturbance. Continue Depakote and Aricept. 6. Pancytopenia status post hematology/oncology evaluation in the past by Dr. Carrera, no active issue . Plan discussed with nursing staff. Dictated By: MARTA ESCOBAR/BIANCA Conf#: [id number] DID#: [id number]
[2018-07-25 01:49] VITALS: BP 126/67; PULSE 104; RESP 21
[2018-07-25 05:47] VITALS: BP 114/61; PULSE 105; RESP 22
[2018-07-25] MEDS: PANTOPRAZOLE (EC) 40 MG TAB PO SCH (06:13)
[2018-07-25 08:30] VITALS: BP 105/68; PULSE 96; RESP 20
[2018-07-25] MEDS: CHOLECALCIFEROL 400 UNITS TAB PO SCH (09:20)
[2018-07-25] MEDS: DONEPEZIL 10 MG TAB PO SCH (09:20)
[2018-07-25] MEDS: FERROUS SULFATE (EC) 325 MG TAB PO SCH (09:20)
[2018-07-25] MEDS: ESCITALOPRAM 10 MG TAB PO SCH (09:20)
[2018-07-25] MEDS: traMADol 50 MG TAB PO PRN (09:20)
[2018-07-25] MEDS: MEMANTINE 10 MG TAB PO SCH (09:21)
[2018-07-25] MEDS: OLANZAPINE 2.5 MG TAB PO SCH ×3 (09:21→20:57)
[2018-07-25] MEDS: DIVALPROEX (ER) 250 MG TAB PO SCH ×2 (09:21→20:57)
[2018-07-25] MEDS: BENAZEPRIL 40 MG TAB PO SCH (09:21)
[2018-07-25] MEDS: DUTASTERIDE 0.5 MG CAP PO SCH (09:21)
--- NOTE | 2018-07-25 12:39 | PN ---
Date/Time of Note Date/Time of Note DATE: 07/25/18 TIME: 12:38 Assessment/Plan Lines/Catheters IV Catheter Type (from [facility]): Saline Lock Sarmiento in Place (from [facility]): Yes Assessment/Plan Chief Complaint/Hosp Course Patient is status post transurethral resection of prostate. The bladder irrigation has been stopped and the urine is blood-tinged. We will keep the Sarmiento catheter in until the urine is clear. Then we will remove the catheter and see if he can urinate on his own. The pathology report is still pending Subjective 24 Hr Interval Summary The patient is confused but does not seem to be in any pain. Exam/Review of Systems Vital Signs Vitals Vital Signs Date Temp Pulse Resp B/P (MAP) Pulse Ox O2 O2 Flow FiO2 Time Delivery Rate 07/25/18 98.8 96 20 105/68 95 Room Air 08:30 (80) 07/22/18 2.0 21:54 Intake and Output 07/24/18 07/24/18 07/25/18 1515:00 23:00 07:00 IntakeIntake Total 1460 ml 1440 ml 620 ml OutputOutput Total 1650 ml 1000 ml 1000 ml BalanceBalance -190 ml 440 ml -380 ml Exam Free Text/Dictation The Sarmiento catheter is draining blood-tinged urine. Does not appear that the patient is drinking enough water. Results Result Diagram: 07/25/18 0442 07/23/18 0452 SUKHWINDER SIFUENTES MD Jul 25, 2018 12:39
--- NOTE | 2018-07-25 14:36 | CONS ---
Assessment/Plan Assessment/Plan Assessment/Plan (Daily) S/p TURP Hypertension Dementia. Anemia. Continue Coreg and Benazepril Continue Flomax and Avodart Continue Aricept and Namenda Consultation Date/Type/Reason Admit Date/Time Jul 21, 2018 at 08:05 Initial Consult Date 07/19/18 Type of Consult Cardiology Requesting Provider: MARTA MCGUIRE MD Date/Time of Note DATE: 07/25/18 TIME: 14:35 Exam/Review of Systems Vital Signs Vitals Vital Signs Date Temp Pulse Resp B/P (MAP) Pulse Ox O2 O2 Flow FiO2 Time Delivery Rate 07/25/18 98.8 96 20 105/68 95 Room Air 08:30 (80) 07/22/18 2.0 21:54 Intake and Output 07/24/18 07/24/18 07/25/18 1515:00 23:00 07:00 IntakeIntake Total 1460 ml 1440 ml 620 ml OutputOutput Total 1650 ml 1000 ml 1000 ml BalanceBalance -190 ml 440 ml -380 ml Exam Exam Head: normocephalic, atraumatic Neck: supple, non-tender Respiratory: clear to auscultation Cardiovascular: regular rate and rhythm (no m/r/g) Gastrointestinal: soft, nl liver, spleen Extremities: normal pulses Labs Result Diagram: 07/25/182 07/23/18 0452 Results 24hrs Laboratory Tests Test 07/25/18 04:42 White Blood Count 4.1 L Red Blood Count 3.49 L Hemoglobin 9.5 L Hematocrit 29.9 L Mean Corpuscular Volume 85.7 Mean Corpuscular Hemoglobin 27.2 L Mean Corpuscular Hemoglobin Concent 31.8 L Red Cell Distribution Width 17.0 H Platelet Count 92 L Mean Platelet Volume 11.7 H Immature Granulocytes % 4.400 H Neutrophils % 48.8 Lymphocytes % 20.5 Monocytes % 25.1 H Eosinophils % 1.0 Basophils % 0.2 Nucleated Red Blood Cells % 0.5 H Immature Granulocytes # 0.180 H Neutrophils # 2.0 Lymphocytes # 0.8 Monocytes # 1.0 H Eosinophils # 0.0 Basophils # 0.0 Nucleated Red Blood Cells # 0.0 Medications Medications Current Medications Morphine Sulfate (morphine) 2 mg Q4H PRN IV SEVERE PAIN LEVEL 7-10 Last administered on 4/13/19at 10:25; Admin Dose 2 MG; Start 07/19/18 at 13:30 Acetaminophen (Tylenol Tab) 650 mg Q6H PRN PO MILD PAIN LEVEL 1-3 Last administered on 07/22/18 15:04; Admin Dose 650 MG; Start 07/19/18 at 13:30 Benazepril HCl (Lotensin) 40 mg DAILY PO Last administered on 07/25/18 09:21; Admin Dose 40 MG; Start 07/20/18 at 09:00 Carvedilol (Coreg) 6.25 mg BID PO Last administered on 07/25/18 09:20; Admin Dose 6.25 MG; Start 07/19/18 at 21:00 Cholecalciferol (Vitamin D) 400 units DAILY PO Last administered on 07/25/18 09:20; Admin Dose 400 UNITS; Start 07/20/18 at 09:00 Divalproex Sodium (Depakote Er) 250 mg BID PO Last administered on 07/25/18 09:21; Admin Dose 250 MG; Start 07/19/18 at 21:00 Donepezil HCl (Aricept) 10 mg DAILY PO Last administered on 07/25/18 09:20; Admin Dose 10 MG; Start 07/20/18 at 09:00 Dutasteride (Avodart) 0.5 mg DAILY PO Last administered on 07/25/18 09:21; Admin Dose 0.5 MG; Start 07/20/18 at 09:00 Escitalopram Oxalate (Lexapro) 5 mg DAILY PO Last administered on 07/25/18 09:20; Admin Dose 5 MG; Start 07/20/18 at 09:00 Ferrous Sulfate (Ferrous Sulfate (Ec)) 325 mg DAILY PO Last administered on 07/25/18 09:20; Admin Dose 325 MG; Start 07/20/18 at 09:00 Hydrocortisone (Hydrocortisone 0.5% Cr) 1 applic QHS PRN TOP ITCHING; Start 07/19/18 at 13:30 Memantine (Namenda) 10 mg DAILY PO Last administered on 07/25/18 09:21; Admin Dose 10 MG; Start 07/20/18 at 09:00 Pantoprazole (Protonix Tab) 40 mg DAILY@0600 PO Last administered on 07/25/18 06:13; Admin Dose 40 MG; Start 07/20/18 at 06:00 Tamsulosin HCl (Flomax) 0.4 mg HS PO Last administered on 07/24/18at 21:12; Admin Dose 0.4 MG; Start 07/19/18 at 21:00 Tramadol HCl (Ultram) 50 mg Q6H PRN PO PAIN 5-10 Last administered on 07/25/18at 09:20; Admin Dose 50 MG; Start 07/19/18 at 13:30 Olanzapine (Zyprexa) 2.5 mg TID PO Last administered on 07/25/18at 13:11; Admin Dose 2.5 MG; Start 07/19/18 at 22:00 Docusate Sodium (Colace) 100 mg BID PRN PO CONSTIPATION; Start 07/23/18 at 08:30 LARISSA BAL M.D. Jul 25, 2018 14:36
[2018-07-25 15:03] VITALS: BP 109/65; PULSE 101; RESP 19
[2018-07-25 19:59] VITALS: BP 104/57; PULSE 89; RESP 18
[2018-07-25] MEDS: TAMSULOSIN (SR) 0.4 MG CAP PO SCH (20:57)
[2018-07-25] MEDS: morphine 2 MG INJ IV PRN (23:56)
[2018-07-26 02:15] VITALS: BP 105/57; PULSE 94; RESP 18
[2018-07-26] MEDS: traMADol 50 MG TAB PO PRN ×2 (04:23→10:41)
[2018-07-26] MEDS: PANTOPRAZOLE (EC) 40 MG TAB PO SCH (04:23)
[2018-07-26 07:24] VITALS: BP 115/70; PULSE 99; RESP 19
[2018-07-26] MEDS: morphine 2 MG INJ IV PRN ×3 (08:39→23:56)
[2018-07-26] MEDS: DUTASTERIDE 0.5 MG CAP PO SCH (08:41)
[2018-07-26] MEDS: DONEPEZIL 10 MG TAB PO SCH (08:41)
[2018-07-26] MEDS: MEMANTINE 10 MG TAB PO SCH (08:41)
[2018-07-26] MEDS: FERROUS SULFATE (EC) 325 MG TAB PO SCH (08:41)
[2018-07-26] MEDS: DIVALPROEX (ER) 250 MG TAB PO SCH ×2 (08:41→20:06)
[2018-07-26] MEDS: OLANZAPINE 2.5 MG TAB PO SCH ×3 (08:41→20:06)
[2018-07-26] MEDS: CHOLECALCIFEROL 400 UNITS TAB PO SCH (08:41)
[2018-07-26] MEDS: ESCITALOPRAM 10 MG TAB PO SCH (08:41)
[2018-07-26] MEDS: BENAZEPRIL 40 MG TAB PO SCH (08:42)
--- NOTE | 2018-07-26 14:10 | PN ---
DATE: 07/25/2018 SUBJECTIVE: Follow up on hematuria, pancytopenia, hypertension, dementia with behavior disturbance. The patient is status post TURP. The urine remains blood tinged. Irrigation has been stopped. The patient will be kept with Sarmiento catheter in. The patient denied any chest pain or shortness of breat h. The patient is awake, alert. PHYSICAL EXAMINATION: VITAL SIGNS: Temperature 98.8, pulse 96, respiration 20, blood pressure 105/68, O2 95% on room air. HEENT: No eye discharge or redness. Conjunctivae normal. Oropharynx clear. NECK: Supple. No thyromegaly. CHEST: Fairly clear. No use of accessory muscles. CARDIOVASCULAR: S1, S2 normal, no murmur. ABDOMEN: Soft, nondistended, nontender. No palpable mass. GENITOURINARY: Sarmiento catheter in place draining blood-tinged urine. EXTREMITIES: No edema. Pedal pulses palpable. SKIN: Without acute rash. NEUROLOGIC: The patient is awake, alert, oriented x1/2, moves all extremities. LABORATORY DATA: 07/25/2018. WBC 4.1, hemoglobin 9.5, platelet 92. Chemistry: Sodium 138, potassi um 4.3, BUN 13, creatinine 0.7, glucose 132, calcium 8.4. Blood culture negative. Urine culture neg ative. IMPRESSION: 1. BPH with recurrent hematuria status post TURP. Continue Sarmiento catheter. Continue Flomax and Avod art. 2. Hypertension. Blood pressure excellent control with current dose of Lotensin and carvedilol. 3. Dementia with behavior disturbance. The patient is less agitated after he was started on Depakot e. Continue Aricept and Namenda. 4. Depression. No episode of crying. Continue Lexapro. 5. Benign prostatic hypertrophy status post TURP. Continue Avodart. Dictated By: MARTA ESCOBAR/BIANCA Conf#: [id number] DID#: [id number]
[2018-07-26 14:35] VITALS: BP 106/59; PULSE 104; RESP 19
--- NOTE | 2018-07-26 17:03 | PN ---
Date/Time of Note Date/Time of Note DATE: 07/26/18 TIME: 16:57 Assessment/Plan VTE Prophylaxis Risk score (from [facility] [place])>0 risk: 7 SCD applied (from [facility] [place]): Yes Pharmacological prophylaxis: NA/contraindicated Pharm contraindication: bleeding Lines/Catheters IV Catheter Type (from [facility]): Saline Lock Urinary Cath still in place: Yes Reason Cath still needed: urinary retention Assessment/Plan Hospital Course Patient continues to have hematuria, bladder irrigation is held, encourage p.o. fluids. Patient was advanced dementia and had one-to-one sitter, complains of postoperative pain. Remains hemodynamically stable, afebrile. Assessment/Plan - Enlarged prostate and Recurrent gross hematuria. s/p TURP, continues on bladder irrigation with Sarmiento catheter. Dr. Dolan is following in urology consultation. - Anemia of acute blood loss, continue to monitor H&H, transfuse as needed. - Benign prostatic hypertrophy. Continue Flomax and Proscar. - Preserved ejection fraction per recent echo - Hypertension. Continue Lotensin. - Dementia with behavioral disturbance. Continue Aricept, Namenda, Zyprexa and Thorazine as needed. - Depression. Continue Lexapro. Further recommendations based on clinical course. Plan of care discussed with Dr. Becker. Result Diagram: 07/26/18 0452 07/23/18 0452 Results 24hrs Laboratory Tests Test 07/26/18 04:52 07/26/18 07:05 White Blood Count 3.5 L Red Blood Count 3.20 L Hemoglobin 8.7 L Hematocrit 27.4 L Mean Corpuscular Volume 85.6 Mean Corpuscular Hemoglobin 27.2 L Mean Corpuscular Hemoglobin Concent 31.8 L Red Cell Distribution Width 17.0 H Platelet Count 92 L Mean Platelet Volume 10.2 Immature Granulocytes % 4.000 H Neutrophils % 43.3 Lymphocytes % 23.6 Monocytes % 26.8 H Eosinophils % 2.0 Basophils % 0.3 Nucleated Red Blood Cells % 0.0 Immature Granulocytes # 0.140 H Neutrophils # 1.5 L Lymphocytes # 0.8 Monocytes # 0.9 Eosinophils # 0.1 Basophils # 0.0 Nucleated Red Blood Cells # 0.0 Lab Scanned Report REFERENCE LAB Subjective 24 Hr Interval Summary Free Text/Dictation Constitutional: alert, oriented, demented Respiratory: clear to auscultation Cardiovascular: nl pulses Gastrointestinal: soft, non-tender Genitourinary - Male: other (Sarmiento catheter) Musculoskeletal: nl extremities to inspection Extremities: normal pulses Exam/Review of Systems Exam Vitals Vital Signs Date Temp Pulse Resp B/P (MAP) Pulse Ox O2 O2 Flow FiO2 Time Delivery Rate 07/26/18 97.7 104 19 106/59 92 14:35 (75) 07/25/18 Room Air 15:03 07/22/18 2.0 21:54 Intake and Output 07/25/18 07/25/18 07/26/18 1515:00 23:00 07:00 IntakeIntake Total 480 ml 360 ml 240 ml OutputOutput Total 500 ml 1600 ml BalanceBalance 480 ml -140 ml -1360 ml Results Results 24hrs Laboratory Tests Test 07/26/18 04:52 07/26/18 07:05 White Blood Count 3.5 L Red Blood Count 3.20 L Hemoglobin 8.7 L Hematocrit 27.4 L Mean Corpuscular Volume 85.6 Mean Corpuscular Hemoglobin 27.2 L Mean Corpuscular Hemoglobin Concent 31.8 L Red Cell Distribution Width 17.0 H Platelet Count 92 L Mean Platelet Volume 10.2 Immature Granulocytes % 4.000 H Neutrophils % 43.3 Lymphocytes % 23.6 Monocytes % 26.8 H Eosinophils % 2.0 Basophils % 0.3 Nucleated Red Blood Cells % 0.0 Immature Granulocytes # 0.140 H Neutrophils # 1.5 L Lymphocytes # 0.8 Monocytes # 0.9 Eosinophils # 0.1 Basophils # 0.0 Nucleated Red Blood Cells # 0.0 Lab Scanned Report REFERENCE LAB Medications Medication Current Medications Morphine Sulfate (morphine) 2 mg Q4H PRN IV SEVERE PAIN LEVEL 7-10 Last administered on 07/26/18at 12:31; Admin Dose 2 MG; Start 07/19/18 at 13:30 Acetaminophen (Tylenol Tab) 650 mg Q6H PRN PO MILD PAIN LEVEL 1-3 Last administered on 07/22/18at 15:04; Admin Dose 650 MG; Start 07/19/18 at 13:30 Benazepril HCl (Lotensin) 40 mg DAILY PO Last administered on 07/26/18at 08:42; Admin Dose 40 MG; Start 07/20/18 at 09:00 Carvedilol (Coreg) 6.25 mg BID PO Last administered on 07/26/18 08:42; Admin Dose 6.25 MG; Start 07/19/18 at 21:00 Cholecalciferol (Vitamin D) 400 units DAILY PO Last administered on 07/26/18 08:41; Admin Dose 400 UNITS; Start 07/20/18 at 09:00 Divalproex Sodium (Depakote Er) 250 mg BID PO Last administered on 07/26/18 08:41; Admin Dose 250 MG; Start 07/19/18 at 21:00 Donepezil HCl (Aricept) 10 mg DAILY PO Last administered on 07/26/18 08:41; Admin Dose 10 MG; Start 07/20/18 at 09:00 Dutasteride (Avodart) 0.5 mg DAILY PO Last administered on 07/26/18 08:41; Admin Dose 0.5 MG; Start 07/20/18 at 09:00 Escitalopram Oxalate (Lexapro) 5 mg DAILY PO Last administered on 07/26/18 08:41; Admin Dose 5 MG; Start 07/20/18 at 09:00 Ferrous Sulfate (Ferrous Sulfate (Ec)) 325 mg DAILY PO Last administered on 07/26/18 08:41; Admin Dose 325 MG; Start 07/20/18 at 09:00 Hydrocortisone (Hydrocortisone 0.5% Cr) 1 applic QHS PRN TOP ITCHING; Start 07/19/18 at 13:30 Memantine (Namenda) 10 mg DAILY PO Last administered on 07/26/18 08:41; Admin Dose 10 MG; Start 07/20/18 at 09:00 Pantoprazole (Protonix Tab) 40 mg DAILY@0600 PO Last administered on 07/26/18 04:23; Admin Dose 40 MG; Start 07/20/18 at 06:00 Tamsulosin HCl (Flomax) 0.4 mg HS PO Last administered on 07/25/18 20:57; Admin Dose 0.4 MG; Start 07/19/18 at 21:00 Tramadol HCl (Ultram) 50 mg Q6H PRN PO PAIN 5-10/10 Last administered on 07/26/18 10:41; Admin Dose 50 MG; Start 07/19/18 at 13:30 Olanzapine (Zyprexa) 2.5 mg TID PO Last administered on 4/15/19at 12:30; Admin Dose 2.5 MG; Start 07/19/18 at 22:00 Docusate Sodium (Colace) 100 mg BID PRN PO CONSTIPATION; Start 07/23/18 at 08:30 JOYCE CHOW Jul 26, 2018 17:03
--- NOTE | 2018-07-26 17:52 | PN ---
Date/Time of Note Date/Time of Note DATE: 07/26/18 TIME: 17:49 Assessment/Plan Lines/Catheters IV Catheter Type (from [facility]): Saline Lock Barrow in Place (from [facility]): Yes Cont'd barrow catheter reason: other (indicate) (Urological surgery) Assessment/Plan Chief Complaint/Hosp Course Patient is status post transurethral resection of prostate. The bladder irrigation has been stopped and the urine is blood-tinged. We will keep the Barrow catheter in until the urine is clear. Then we will remove the catheter and see if he can urinate on his own. The pathology report showed 70 g of benign prostatic tissue. Subjective 24 Hr Interval Summary Patient is post a transurethral resection of the prostate. He has a sitter watching him Exam/Review of Systems Vital Signs Vitals Vital Signs Date Temp Pulse Resp B/P (MAP) Pulse Ox O2 O2 Flow FiO2 Time Delivery Rate 07/26/18 97.7 104 19 106/59 92 14:35 (75) 07/25/18 Room Air 15:03 07/22/18 2.0 21:54 Intake and Output 07/25/18 07/25/18 07/26/18 1515:00 23:00 07:00 IntakeIntake Total 480 ml 360 ml 240 ml OutputOutput Total 500 ml 1600 ml BalanceBalance 480 ml -140 ml -1360 ml Exam Free Text/Dictation The Barrow catheter is draining blood-tinged urine. There are no clots. Results Result Diagram: 07/26/18 0452 07/23/18 0452 SUKHWINDER SIFUENTES MD Jul 26, 2018 17:52
--- NOTE | 2018-07-26 18:47 | CONS ---
Assessment/Plan Assessment/Plan Hospital Course (Demo Recall) IMPRESSION: 1. Preoperative evaluation prior to a transurethral prostatectomy. Now postop s/p TURP 2. Hematuria, recurrent. 3. Hypertension, under reasonable control. 4. Dementia. 5. Anemia. 6. EKG with right bundle branch block pattern, negative troponins x3. NL EF by echo 06/01 Recc: -Continue benazepril/coreg -pain control -Follow Hgb -ongoing urology f/u Consultation Date/Type/Reason Admit Date/Time Jul 21, 2018 at 08:05 Initial Consult Date 07/19/18 Type of Consult Cardiology Reason for Consultation HTN Requesting Provider: MARTA MCGUIRE MD Date/Time of Note DATE: 07/26/18 TIME: 18:42 Exam/Review of Systems Vital Signs Vitals Vital Signs Date Temp Pulse Resp B/P (MAP) Pulse Ox O2 O2 Flow FiO2 Time Delivery Rate 07/26/18 97.7 104 19 106/59 92 14:35 (75) 07/25/18 Room Air 15:03 07/22/18 2.0 21:54 Intake and Output 07/25/18 07/25/18 07/26/18 1515:00 23:00 07:00 IntakeIntake Total 480 ml 360 ml 240 ml OutputOutput Total 500 ml 1600 ml BalanceBalance 480 ml -140 ml -1360 ml Exam Exam Review of Systems: CONSTITUTIONAL: No fevers, chills. PULMONARY: No sob CARDIOVASCULAR: No chest pain/palpitations GASTROINTESTINAL: No nausea/vomiting. GENITOURINARY: No hematuria/dysuria. MUSCULOSKELETAL: No myagias/arthalgias. PSYCHIATRIC: The patient denies depression. NEUROLOGIC: No weakness Constitutional: alert Psych: no complaints Head: normocephalic ENMT: mucosa pink and moist Neck: supple, jvd (9 cm water) Respiratory: diminished breath sounds Cardiovascular: regular rate and rhythm Gastrointestinal: soft, non-tender Musculoskeletal: muscle tone (normal) Extremities: edema (none) Neurological: other (No focal deficits) Labs Result Diagram: 07/26/18 0452 07/23/18 0452 Results 24hrs Laboratory Tests Test 07/26/18 04:52 07/26/18 07:05 White Blood Count 3.5 L Red Blood Count 3.20 L Hemoglobin 8.7 L Hematocrit 27.4 L Mean Corpuscular Volume 85.6 Mean Corpuscular Hemoglobin 27.2 L Mean Corpuscular Hemoglobin Concent 31.8 L Red Cell Distribution Width 17.0 H Platelet Count 92 L Mean Platelet Volume 10.2 Immature Granulocytes % 4.000 H Neutrophils % 43.3 Lymphocytes % 23.6 Monocytes % 26.8 H Eosinophils % 2.0 Basophils % 0.3 Nucleated Red Blood Cells % 0.0 Immature Granulocytes # 0.140 H Neutrophils # 1.5 L Lymphocytes # 0.8 Monocytes # 0.9 Eosinophils # 0.1 Basophils # 0.0 Nucleated Red Blood Cells # 0.0 Lab Scanned Report REFERENCE LAB Medications Medications Current Medications Morphine Sulfate (morphine) 2 mg Q4H PRN IV SEVERE PAIN LEVEL 7-10 Last administered on 07/26/18 12:31; Admin Dose 2 MG; Start 07/19/18 at 13:30 Acetaminophen (Tylenol Tab) 650 mg Q6H PRN PO MILD PAIN LEVEL 1-3 Last administered on 07/22/18 15:04; Admin Dose 650 MG; Start 07/19/18 at 13:30 Benazepril HCl (Lotensin) 40 mg DAILY PO Last administered on 07/26/18 08:42; Admin Dose 40 MG; Start 07/20/18 at 09:00 Carvedilol (Coreg) 6.25 mg BID PO Last administered on 07/26/18 08:42; Admin Dose 6.25 MG; Start 07/19/18 at 21:00 Cholecalciferol (Vitamin D) 400 units DAILY PO Last administered on 07/26/18 08:41; Admin Dose 400 UNITS; Start 07/20/18 at 09:00 Divalproex Sodium (Depakote Er) 250 mg BID PO Last administered on 07/26/18 08:41; Admin Dose 250 MG; Start 07/19/18 at 21:00 Donepezil HCl (Aricept) 10 mg DAILY PO Last administered on 07/26/18 08:41; Admin Dose 10 MG; Start 07/20/18 at 09:00 Dutasteride (Avodart) 0.5 mg DAILY PO Last administered on 07/26/18 08:41; Admin Dose 0.5 MG; Start 07/20/18 at 09:00 Escitalopram Oxalate (Lexapro) 5 mg DAILY PO Last administered on 07/26/18 08:41; Admin Dose 5 MG; Start 07/20/18 at 09:00 Ferrous Sulfate (Ferrous Sulfate (Ec)) 325 mg DAILY PO Last administered on 07/26/18 08:41; Admin Dose 325 MG; Start 07/20/18 at 09:00 Hydrocortisone (Hydrocortisone 0.5% Cr) 1 applic QHS PRN TOP ITCHING; Start 07/19/18 at 13:30 Memantine (Namenda) 10 mg DAILY PO Last administered on 07/26/18 08:41; Admin Dose 10 MG; Start 07/20/18 at 09:00 Pantoprazole (Protonix Tab) 40 mg DAILY@0600 PO Last administered on 07/26/18 04:23; Admin Dose 40 MG; Start 07/20/18 at 06:00 Tamsulosin HCl (Flomax) 0.4 mg HS PO Last administered on 07/25/18 20:57; Admin Dose 0.4 MG; Start 07/19/18 at 21:00 Tramadol HCl (Ultram) 50 mg Q6H PRN PO PAIN 5-10 Last administered on 07/26/18 10:41; Admin Dose 50 MG; Start 07/19/18 at 13:30 Olanzapine (Zyprexa) 2.5 mg TID PO Last administered on 07/26/18 12:30; Admin Dose 2.5 MG; Start 07/19/18 at 22:00 Docusate Sodium (Colace) 100 mg BID PRN PO CONSTIPATION; Start 07/23/18 at 08:30 LION ROGERS Jul 26, 2018 18:46
[2018-07-26] MEDS: TAMSULOSIN (SR) 0.4 MG CAP PO SCH (20:06)
[2018-07-26 20:14] VITALS: BP 101/56; PULSE 97; RESP 18
[2018-07-27 01:51] VITALS: BP 96/51; PULSE 95; RESP 18
[2018-07-27] MEDS: morphine 2 MG INJ IV PRN ×2 (04:19→20:35)
[2018-07-27] MEDS: PANTOPRAZOLE (EC) 40 MG TAB PO SCH (06:38)
[2018-07-27 08:05] VITALS: BP 96/51; PULSE 90; RESP 12
--- NOTE | 2018-07-27 08:10 | PN ---
Date/Time of Note Date/Time of Note DATE: 07/27/18 TIME: 08:09 Assessment/Plan Lines/Catheters IV Catheter Type (from [facility]): Saline Lock Sarmiento in Place (from [facility]): No Assessment/Plan Chief Complaint/Hosp Course Patient is status post transurethral resection of prostate. The pathology report showed 70 g of benign prostatic tissue. I did remove the Sarmiento catheter. We will monitor his voiding and the color of his urine. Subjective 24 Hr Interval Summary Patient is status post transurethral resection of the prostate. He is doing well. The urine is still blood-tinged. Exam/Review of Systems Vital Signs Vitals Vital Signs Date Temp Pulse Resp B/P (MAP) Pulse Ox O2 O2 Flow FiO2 Time Delivery Rate 07/27/18 98.4 90 12 96/51 (66) 90 Room Air 08:05 Intake and Output 07/26/18 07/26/18 07/27/18 1515:00 23:00 07:00 IntakeIntake Total 1040 ml OutputOutput Total 800 ml BalanceBalance 1040 ml -800 ml Exam Free Text/Dictation Abdomen is soft. The urine is blood-tinged. Results Result Diagram: 07/27/18 0450 07/27/18 0450 SUKHWINDER SIFUENTES MD Jul 27, 2018 08:10
[2018-07-27] MEDS: DONEPEZIL 10 MG TAB PO SCH (08:32)
[2018-07-27] MEDS: MEMANTINE 10 MG TAB PO SCH (08:32)
[2018-07-27] MEDS: FERROUS SULFATE (EC) 325 MG TAB PO SCH (08:32)
[2018-07-27] MEDS: DUTASTERIDE 0.5 MG CAP PO SCH (08:32)
[2018-07-27] MEDS: DIVALPROEX (ER) 250 MG TAB PO SCH ×2 (08:32→20:48)
[2018-07-27] MEDS: CHOLECALCIFEROL 400 UNITS TAB PO SCH (08:32)
[2018-07-27] MEDS: ESCITALOPRAM 10 MG TAB PO SCH (08:33)
[2018-07-27] MEDS: OLANZAPINE 2.5 MG TAB PO SCH ×3 (08:34→20:35)
[2018-07-27] MEDS: BENAZEPRIL 40 MG TAB PO SCH (08:34)
--- NOTE | 2018-07-27 09:52 | CONS ---
Consultation Date/Type/Reason Admit Date/Time Jul 21, 2018 at 08:05 Initial Consult Date 07/19/18 Type of Consult Cardiology Requesting Provider: MARTA MCGUIRE MD Date/Time of Note DATE: 07/27/18 TIME: 09:51 24 HR Interval Summary Free Text/Dictation VS stable by review - Sarmiento removed by urology - will monitor. Exam/Review of Systems Vital Signs Vitals Vital Signs Date Temp Pulse Resp B/P (MAP) Pulse Ox O2 O2 Flow FiO2 Time Delivery Rate 07/27/18 98.4 90 12 96/51 (66) 90 Room Air 08:05 Intake and Output 07/26/18 07/26/18 07/27/18 1515:00 23:00 07:00 IntakeIntake Total 1040 ml OutputOutput Total 800 ml BalanceBalance 1040 ml -800 ml Labs Result Diagram: 07/27/18 0450 07/27/18 0450 Results 24hrs Laboratory Tests Test 07/27/18 04:50 White Blood Count 2.9 L Red Blood Count 3.11 L Hemoglobin 8.5 L Hematocrit 26.5 L Mean Corpuscular Volume 85.2 Mean Corpuscular Hemoglobin 27.3 L Mean Corpuscular Hemoglobin Concent 32.1 Red Cell Distribution Width 17.1 H Platelet Count 97 L Mean Platelet Volume 10.7 H Immature Granulocytes % 6.500 H Neutrophils % Segmented Neutrophils % (Manual) 46 Band Neutrophils % (Manual) 1 Lymphocytes % Lymphocytes % (Manual) 33 Monocytes % Monocytes % (Manual) 17 H Eosinophils % Eosinophils % (Manual) 1 Basophils % Basophils % (Manual) 1 Myelocytes % (Manual) 1 H Nucleated Red Blood Cells % 2 H Immature Granulocytes # 0.190 H Neutrophils # Neutrophils # (Manual) 1.3 L Band Neutrophils # 0.0 Lymphocytes (Manual) 0.9 Lymphocytes # Monocytes # Monocytes # (Manual) 0.4 Eosinophils # Basophils # Basophils # (Manual) 0.0 Myelocytes # 0.0 Nucleated Red Blood Cells # Platelet Estimate DECREASED Polychromasia 3+ Poikilocytosis 1+ Anisocytosis 1+ Microcytosis 1+ Sodium Level 135 Potassium Level 4.1 Chloride Level 97 Carbon Dioxide Level 28 Anion Gap 10 Blood Urea Nitrogen 13 Creatinine 0.67 Est Glomerular Filtrat Rate mL/min Glucose Level 110 Calcium Level 8.2 L Medications Medications Current Medications Morphine Sulfate (morphine) 2 mg Q4H PRN IV SEVERE PAIN LEVEL 7-10 Last administered on 07/27/18 04:19; Admin Dose 2 MG; Start 07/19/18 at 13:30 Acetaminophen (Tylenol Tab) 650 mg Q6H PRN PO MILD PAIN LEVEL 1-3 Last administered on 07/22/18 15:04; Admin Dose 650 MG; Start 07/19/18 at 13:30 Benazepril HCl (Lotensin) 40 mg DAILY PO Last administered on 07/27/18 08:34; Admin Dose 40 MG; Start 07/20/18 at 09:00 Carvedilol (Coreg) 6.25 mg BID PO Last administered on 07/27/18 08:35; Admin Dose 6.25 MG; Start 07/19/18 at 21:00 Cholecalciferol (Vitamin D) 400 units DAILY PO Last administered on 07/27/18 08:32; Admin Dose 400 UNITS; Start 07/20/18 at 09:00 Divalproex Sodium (Depakote Er) 250 mg BID PO Last administered on 07/27/18 08:32; Admin Dose 250 MG; Start 07/19/18 at 21:00 Donepezil HCl (Aricept) 10 mg DAILY PO Last administered on 07/27/18 08:32; Admin Dose 10 MG; Start 07/20/18 at 09:00 Dutasteride (Avodart) 0.5 mg DAILY PO Last administered on 07/27/18 08:32; Admin Dose 0.5 MG; Start 07/20/18 at 09:00 Escitalopram Oxalate (Lexapro) 5 mg DAILY PO Last administered on 07/27/18 08:33; Admin Dose 5 MG; Start 07/20/18 at 09:00 Ferrous Sulfate (Ferrous Sulfate (Ec)) 325 mg DAILY PO Last administered on 07/27/18 08:32; Admin Dose 325 MG; Start 07/20/18 at 09:00 Hydrocortisone (Hydrocortisone 0.5% Cr) 1 applic QHS PRN TOP ITCHING; Start 07/19/18 at 13:30 Memantine (Namenda) 10 mg DAILY PO Last administered on 07/27/18 08:32; Admin Dose 10 MG; Start 07/20/18 at 09:00 Pantoprazole (Protonix Tab) 40 mg DAILY@0600 PO Last administered on 07/27/18at 06:38; Admin Dose 40 MG; Start 07/20/18 at 06:00 Tamsulosin HCl (Flomax) 0.4 mg HS PO Last administered on 07/26/18at 20:06; Admin Dose 0.4 MG; Start 07/19/18 at 21:00 Tramadol HCl (Ultram) 50 mg Q6H PRN PO PAIN 5-01/20 Last administered on 07/26/18at 10:41; Admin Dose 50 MG; Start 07/19/18 at 13:30 Olanzapine (Zyprexa) 2.5 mg TID PO Last administered on 07/27/18at 08:34; Admin Dose 2.5 MG; Start 07/19/18 at 22:00 Docusate Sodium (Colace) 100 mg BID PRN PO CONSTIPATION; Start 07/23/18 at 08:30 VANESSA MORIN MD Jul 27, 2018 09:52
[2018-07-27 16:00] VITALS: BP 94/54; PULSE 98; RESP 13
[2018-07-27] MEDS: ACETAMINOPHEN 325 MG TAB PO PRN (16:22)
--- NOTE | 2018-07-27 17:49 | PN ---
Date/Time of Note Date/Time of Note DATE: 07/27/18 TIME: 17:48 Assessment/Plan VTE Prophylaxis Risk score (from Ns)>0 risk: 7 SCD applied (from [facility]): Yes Pharmacological prophylaxis: NA/contraindicated Pharm contraindication: bleeding Lines/Catheters IV Catheter Type (from [facility]): Saline Lock Urinary Cath still in place: No Assessment/Plan Hospital Course Sarmiento was discontinued patient is able to void however continues to have hematuria, will continue to monitor hemoglobin and hematocrit. Continue physical therapy. Assessment/Plan - Enlarged prostate and Recurrent gross hematuria. s/p TURP, continues on bladder irrigation with Sarmiento catheter. Dr. Dolan is following in urology consultation. - Anemia of acute blood loss, continue to monitor H&H, transfuse as needed. - Benign prostatic hypertrophy. Continue Flomax and Proscar. - Preserved ejection fraction per recent echo - Hypertension. Continue Lotensin. - Dementia with behavioral disturbance. Continue Aricept, Namenda, Zyprexa and Thorazine as needed. - Depression. Continue Lexapro. Further recommendations based on clinical course. Plan of care discussed with Dr. Becker. Result Diagram: 07/27/18 0450 07/27/18 0450 Results 24hrs Laboratory Tests Test 07/27/18 04:50 White Blood Count 2.9 L Red Blood Count 3.11 L Hemoglobin 8.5 L Hematocrit 26.5 L Mean Corpuscular Volume 85.2 Mean Corpuscular Hemoglobin 27.3 L Mean Corpuscular Hemoglobin Concent 32.1 Red Cell Distribution Width 17.1 H Platelet Count 97 L Mean Platelet Volume 10.7 H Immature Granulocytes % 6.500 H Neutrophils % Segmented Neutrophils % (Manual) 46 Band Neutrophils % (Manual) 1 Lymphocytes % Lymphocytes % (Manual) 33 Monocytes % Monocytes % (Manual) 17 H Eosinophils % Eosinophils % (Manual) 1 Basophils % Basophils % (Manual) 1 Myelocytes % (Manual) 1 H Nucleated Red Blood Cells % 2 H Immature Granulocytes # 0.190 H Neutrophils # Neutrophils # (Manual) 1.3 L Band Neutrophils # 0.0 Lymphocytes (Manual) 0.9 Lymphocytes # Monocytes # Monocytes # (Manual) 0.4 Eosinophils # Basophils # Basophils # (Manual) 0.0 Myelocytes # 0.0 Nucleated Red Blood Cells # Platelet Estimate DECREASED Polychromasia 3+ Poikilocytosis 1+ Anisocytosis 1+ Microcytosis 1+ Sodium Level 135 Potassium Level 4.1 Chloride Level 97 Carbon Dioxide Level 28 Anion Gap 10 Blood Urea Nitrogen 13 Creatinine 0.67 Est Glomerular Filtrat Rate mL/min Glucose Level 110 Calcium Level 8.2 L Exam/Review of Systems Exam Vitals Vital Signs Date Temp Pulse Resp B/P (MAP) Pulse Ox O2 O2 Flow FiO2 Time Delivery Rate 07/27/18 99.3 17:07 07/27/18 98 13 94/54 (67) 90 16:00 07/27/18 Room Air 08:05 Intake and Output 07/26/18 07/26/18 07/27/18 1515:00 23:00 07:00 IntakeIntake Total 1040 ml OutputOutput Total 800 ml BalanceBalance 1040 ml -800 ml Exam Constitutional: alert, oriented, demented Respiratory: clear to auscultation Cardiovascular: nl pulses Gastrointestinal: soft, non-tender Musculoskeletal: nl extremities to inspection Extremities: normal pulses Results Results 24hrs Laboratory Tests Test 07/27/18 04:50 White Blood Count 2.9 L Red Blood Count 3.11 L Hemoglobin 8.5 L Hematocrit 26.5 L Mean Corpuscular Volume 85.2 Mean Corpuscular Hemoglobin 27.3 L Mean Corpuscular Hemoglobin Concent 32.1 Red Cell Distribution Width 17.1 H Platelet Count 97 L Mean Platelet Volume 10.7 H Immature Granulocytes % 6.500 H Neutrophils % Segmented Neutrophils % (Manual) 46 Band Neutrophils % (Manual) 1 Lymphocytes % Lymphocytes % (Manual) 33 Monocytes % Monocytes % (Manual) 17 H Eosinophils % Eosinophils % (Manual) 1 Basophils % Basophils % (Manual) 1 Myelocytes % (Manual) 1 H Nucleated Red Blood Cells % 2 H Immature Granulocytes # 0.190 H Neutrophils # Neutrophils # (Manual) 1.3 L Band Neutrophils # 0.0 Lymphocytes (Manual) 0.9 Lymphocytes # Monocytes # Monocytes # (Manual) 0.4 Eosinophils # Basophils # Basophils # (Manual) 0.0 Myelocytes # 0.0 Nucleated Red Blood Cells # Platelet Estimate DECREASED Polychromasia 3+ Poikilocytosis 1+ Anisocytosis 1+ Microcytosis 1+ Sodium Level 135 Potassium Level 4.1 Chloride Level 97 Carbon Dioxide Level 28 Anion Gap 10 Blood Urea Nitrogen 13 Creatinine 0.67 Est Glomerular Filtrat Rate mL/min Glucose Level 110 Calcium Level 8.2 L Medications Medication Current Medications Morphine Sulfate (morphine) 2 mg Q4H PRN IV SEVERE PAIN LEVEL 7-10 Last administered on 07/27/18 04:19; Admin Dose 2 MG; Start 07/19/18 at 13:30 Acetaminophen (Tylenol Tab) 650 mg Q6H PRN PO MILD PAIN LEVEL 1-3 Last administered on 07/27/18 16:22; Admin Dose 650 MG; Start 07/19/18 at 13:30 Benazepril HCl (Lotensin) 40 mg DAILY PO Last administered on 07/27/18 08:34; Admin Dose 40 MG; Start 07/20/18 at 09:00 Carvedilol (Coreg) 6.25 mg BID PO Last administered on 07/27/18 08:35; Admin Dose 6.25 MG; Start 07/19/18 at 21:00 Cholecalciferol (Vitamin D) 400 units DAILY PO Last administered on 07/27/18 08:32; Admin Dose 400 UNITS; Start 07/20/18 at 09:00 Divalproex Sodium (Depakote Er) 250 mg BID PO Last administered on 07/27/18 08:32; Admin Dose 250 MG; Start 07/19/18 at 21:00 Donepezil HCl (Aricept) 10 mg DAILY PO Last administered on 07/27/18 08:32; Admin Dose 10 MG; Start 07/20/18 at 09:00 Dutasteride (Avodart) 0.5 mg DAILY PO Last administered on 07/27/18 08:32; Admin Dose 0.5 MG; Start 07/20/18 at 09:00 Escitalopram Oxalate (Lexapro) 5 mg DAILY PO Last administered on 07/27/18 08:33; Admin Dose 5 MG; Start 07/20/18 at 09:00 Ferrous Sulfate (Ferrous Sulfate (Ec)) 325 mg DAILY PO Last administered on 07/27/18 08:32; Admin Dose 325 MG; Start 07/20/18 at 09:00 Hydrocortisone (Hydrocortisone 0.5% Cr) 1 applic QHS PRN TOP ITCHING; Start 07/19/18 at 13:30 Memantine (Namenda) 10 mg DAILY PO Last administered on 07/27/18 08:32; Admin Dose 10 MG; Start 07/20/18 at 09:00 Pantoprazole (Protonix Tab) 40 mg DAILY@0600 PO Last administered on 07/27/18 06:38; Admin Dose 40 MG; Start 07/20/18 at 06:00 Tamsulosin HCl (Flomax) 0.4 mg HS PO Last administered on 07/26/18 20:06; Admin Dose 0.4 MG; Start 07/19/18 at 21:00 Tramadol HCl (Ultram) 50 mg Q6H PRN PO PAIN 5-01/20 Last administered on 07/26/18at 10:41; Admin Dose 50 MG; Start 07/19/18 at 13:30 Olanzapine (Zyprexa) 2.5 mg TID PO Last administered on 07/27/18at 13:36; Admin Dose 2.5 MG; Start 07/19/18 at 22:00 Docusate Sodium (Colace) 100 mg BID PRN PO CONSTIPATION; Start 07/23/18 at 08:30 JOYCE CHOW Jul 27, 2018 17:49
[2018-07-27 19:54] VITALS: BP 100/60; PULSE 92; RESP 18
[2018-07-27] MEDS: TAMSULOSIN (SR) 0.4 MG CAP PO SCH (20:34)
[2018-07-28 02:08] VITALS: BP 100/55; PULSE 102; RESP 18
[2018-07-28] MEDS: morphine 2 MG INJ IV PRN (02:40)
[2018-07-28] MEDS: PANTOPRAZOLE (EC) 40 MG TAB PO SCH (05:36)
[2018-07-28 07:54] VITALS: BP 123/59; PULSE 100; RESP 13
[2018-07-28] MEDS: DUTASTERIDE 0.5 MG CAP PO SCH (08:29)
[2018-07-28] MEDS: BENAZEPRIL 40 MG TAB PO SCH (08:30)
[2018-07-28] MEDS: DIVALPROEX (ER) 250 MG TAB PO SCH ×2 (08:30→21:25)
[2018-07-28] MEDS: MEMANTINE 10 MG TAB PO SCH (08:30)
[2018-07-28] MEDS: OLANZAPINE 2.5 MG TAB PO SCH ×3 (08:31→21:25)
[2018-07-28] MEDS: FERROUS SULFATE (EC) 325 MG TAB PO SCH (08:31)
[2018-07-28] MEDS: ESCITALOPRAM 10 MG TAB PO SCH (08:31)
[2018-07-28] MEDS: DONEPEZIL 10 MG TAB PO SCH (08:31)
[2018-07-28] MEDS: CHOLECALCIFEROL 400 UNITS TAB PO SCH (08:31)
--- NOTE | 2018-07-28 11:56 | PN ---
Date/Time of Note Date/Time of Note DATE: 07/28/18 TIME: 11:53 Assessment/Plan VTE Prophylaxis Risk score (from Ns)>0 risk: 7 SCD applied (from [facility] [place]): Yes Pharmacological prophylaxis: NA/contraindicated Pharm contraindication: bleeding Lines/Catheters IV Catheter Type (from [facility]): Saline Lock Urinary Cath still in place: No Assessment/Plan Hospital Course Patient is able to void continues to have hematuria, hemoglobin is stable, encourage out of bed, PT eval. Assessment/Plan - Enlarged prostate and Recurrent gross hematuria. s/p TURP, continues on bladder irrigation with Sarmiento catheter. Dr. Dolan is following in urology consultation. - Anemia of acute blood loss, continue to monitor H&H, transfuse as needed. - Benign prostatic hypertrophy. Continue Flomax and Proscar. - Preserved ejection fraction per recent echo - Hypertension. Continue Lotensin. - Dementia with behavioral disturbance. Continue Aricept, Namenda, Zyprexa and Thorazine as needed. - Depression. Continue Lexapro. Further recommendations based on clinical course. Plan of care discussed with Dr. Becker. Result Diagram: 07/28/18 0448 07/27/18 0450 Results 24hrs Laboratory Tests Test 07/28/18 04:48 White Blood Count 6.7 # Red Blood Count 3.25 L Hemoglobin 8.9 L Hematocrit 27.7 L Mean Corpuscular Volume 85.2 Mean Corpuscular Hemoglobin 27.4 L Mean Corpuscular Hemoglobin Concent 32.1 Red Cell Distribution Width 17.1 H Platelet Count 113 L Mean Platelet Volume 10.5 H Immature Granulocytes % 2.800 H Neutrophils % Segmented Neutrophils % (Manual) 48 Band Neutrophils % (Manual) 11 H Lymphocytes % Lymphocytes % (Manual) 27 Reactive Lymphocytes % (Manual) 3 H Monocytes % Monocytes % (Manual) 9 Eosinophils % Basophils % Myelocytes % (Manual) 2 H Nucleated Red Blood Cells % 1 H Immature Granulocytes # 0.190 H Neutrophils # Neutrophils # (Manual) 3.3 Band Neutrophils # 0.7 H Lymphocytes (Manual) 1.8 Lymphocytes # Reactive Lymphocytes # 0.2 H Monocytes # Monocytes # (Manual) 0.6 Eosinophils # Basophils # Myelocytes # 0.1 H Nucleated Red Blood Cells # Platelet Estimate DECREASED Giant Platelets 1 H Polychromasia 2+ Hypochromasia 1+ Poikilocytosis 1+ Anisocytosis 1+ Microcytosis 1+ Spherocytes 1+ Ovalocytes 1+ Exam/Review of Systems Exam Vitals Vital Signs Date Temp Pulse Resp B/P (MAP) Pulse Ox O2 O2 Flow FiO2 Time Delivery Rate 07/28/18 98.4 10:48 07/28/18 100 13 123/59 90 Room Air 07:54 (80) Intake and Output 07/27/18 07/27/18 07/28/18 1515:00 23:00 07:00 IntakeIntake Total 2000 ml 950 ml 450 ml OutputOutput Total 1200 ml 1015 ml 480 ml BalanceBalance 800 ml -65 ml -30 ml Exam Constitutional: alert, oriented, demented Respiratory: clear to auscultation Cardiovascular: nl pulses Gastrointestinal: soft, non-tender Musculoskeletal: nl extremities to inspection Extremities: normal pulses Results Results 24hrs Laboratory Tests Test 07/28/18 04:48 White Blood Count 6.7 # Red Blood Count 3.25 L Hemoglobin 8.9 L Hematocrit 27.7 L Mean Corpuscular Volume 85.2 Mean Corpuscular Hemoglobin 27.4 L Mean Corpuscular Hemoglobin Concent 32.1 Red Cell Distribution Width 17.1 H Platelet Count 113 L Mean Platelet Volume 10.5 H Immature Granulocytes % 2.800 H Neutrophils % Segmented Neutrophils % (Manual) 48 Band Neutrophils % (Manual) 11 H Lymphocytes % Lymphocytes % (Manual) 27 Reactive Lymphocytes % (Manual) 3 H Monocytes % Monocytes % (Manual) 9 Eosinophils % Basophils % Myelocytes % (Manual) 2 H Nucleated Red Blood Cells % 1 H Immature Granulocytes # 0.190 H Neutrophils # Neutrophils # (Manual) 3.3 Band Neutrophils # 0.7 H Lymphocytes (Manual) 1.8 Lymphocytes # Reactive Lymphocytes # 0.2 H Monocytes # Monocytes # (Manual) 0.6 Eosinophils # Basophils # Myelocytes # 0.1 H Nucleated Red Blood Cells # Platelet Estimate DECREASED Giant Platelets 1 H Polychromasia 2+ Hypochromasia 1+ Poikilocytosis 1+ Anisocytosis 1+ Microcytosis 1+ Spherocytes 1+ Ovalocytes 1+ Medications Medication Current Medications Morphine Sulfate (morphine) 2 mg Q4H PRN IV SEVERE PAIN LEVEL 7-10 Last administered on 07/28/18at 02:40; Admin Dose 2 MG; Start 07/19/18 at 13:30 Acetaminophen (Tylenol Tab) 650 mg Q6H PRN PO MILD PAIN LEVEL 1-3 Last administered on 07/27/18 16:22; Admin Dose 650 MG; Start 07/19/18 at 13:30 Benazepril HCl (Lotensin) 40 mg DAILY PO Last administered on 07/28/18 08:30; Admin Dose 40 MG; Start 07/20/18 at 09:00 Carvedilol (Coreg) 6.25 mg BID PO Last administered on 07/28/18 08:31; Admin Dose 6.25 MG; Start 07/19/18 at 21:00 Cholecalciferol (Vitamin D) 400 units DAILY PO Last administered on 07/28/18 08:31; Admin Dose 400 UNITS; Start 07/20/18 at 09:00 Divalproex Sodium (Depakote Er) 250 mg BID PO Last administered on 07/28/18 08:30; Admin Dose 250 MG; Start 07/19/18 at 21:00 Donepezil HCl (Aricept) 10 mg DAILY PO Last administered on 07/28/18 08:31; Admin Dose 10 MG; Start 07/20/18 at 09:00 Dutasteride (Avodart) 0.5 mg DAILY PO Last administered on 07/28/18 08:29; Admin Dose 0.5 MG; Start 07/20/18 at 09:00 Escitalopram Oxalate (Lexapro) 5 mg DAILY PO Last administered on 07/28/18 08:31; Admin Dose 5 MG; Start 07/20/18 at 09:00 Ferrous Sulfate (Ferrous Sulfate (Ec)) 325 mg DAILY PO Last administered on 07/28/18 08:31; Admin Dose 325 MG; Start 07/20/18 at 09:00 Hydrocortisone (Hydrocortisone 0.5% Cr) 1 applic QHS PRN TOP ITCHING; Start 07/19/18 at 13:30 Memantine (Namenda) 10 mg DAILY PO Last administered on 07/28/18 08:30; Admin Dose 10 MG; Start 07/20/18 at 09:00 Pantoprazole (Protonix Tab) 40 mg DAILY@0600 PO Last administered on 07/28/18at 05:36; Admin Dose 40 MG; Start 07/20/18 at 06:00 Tamsulosin HCl (Flomax) 0.4 mg HS PO Last administered on 07/27/18at 20:34; Admin Dose 0.4 MG; Start 07/19/18 at 21:00 Tramadol HCl (Ultram) 50 mg Q6H PRN PO PAIN 5-01/20 Last administered on 07/26/18at 10:41; Admin Dose 50 MG; Start 07/19/18 at 13:30 Olanzapine (Zyprexa) 2.5 mg TID PO Last administered on 07/28/18at 08:31; Admin Dose 2.5 MG; Start 07/19/18 at 22:00 Docusate Sodium (Colace) 100 mg BID PRN PO CONSTIPATION; Start 07/23/18 at 08:30 JOYCE CHOW Jul 28, 2018 11:56
--- NOTE | 2018-07-28 15:06 | CONS ---
Assessment/Plan Assessment/Plan Hospital Course (Demo Recall) IMPRESSION: 1. Preoperative evaluation prior to a transurethral prostatectomy. Now post-op s/p TURP 2. Hematuria, recurrent. 3. Hypertension, under reasonable control. 4. Dementia. 5. Anemia. 6. EKG with right bundle branch block pattern, negative troponins x3. NL EF by echo 06/01 Recc: -Continue benazepril/coreg and follow BP clsoely -pain control -Follow Hgb -ongoing urology f/u Consultation Date/Type/Reason Admit Date/Time Jul 21, 2018 at 08:05 Initial Consult Date 07/19/18 Type of Consult Cardiology Reason for Consultation HTN Requesting Provider: MARTA MCGUIRE MD Date/Time of Note DATE: 07/28/18 TIME: 15:04 Exam/Review of Systems Vital Signs Vitals Vital Signs Date Temp Pulse Resp B/P (MAP) Pulse Ox O2 O2 Flow FiO2 Time Delivery Rate 07/28/18 98.4 10:48 07/28/18 100 13 123/59 90 Room Air 07:54 (80) Intake and Output 07/27/18 07/27/18 07/28/18 1515:00 23:00 07:00 IntakeIntake Total 2000 ml 950 ml 450 ml OutputOutput Total 1200 ml 1015 ml 480 ml BalanceBalance 800 ml -65 ml -30 ml Exam Exam Review of Systems: CONSTITUTIONAL: No fevers, chills. PULMONARY: No sob CARDIOVASCULAR: No chest pain/palpitations GASTROINTESTINAL: No nausea/vomiting. GENITOURINARY: No hematuria/dysuria. MUSCULOSKELETAL: No myagias/arthalgias. PSYCHIATRIC: The patient denies depression. NEUROLOGIC: lethargic somewhat Constitutional: other (sleeping, arousable) Psych: no complaints Head: normocephalic ENMT: mucosa pink and moist Neck: supple, jvd (9 cm water) Respiratory: diminished breath sounds (at bases/B) Cardiovascular: regular rate and rhythm Gastrointestinal: soft, non-tender Musculoskeletal: muscle weakness (mild generalized) Extremities: edema (none) Neurological: other (No focal deficits) Labs Result Diagram: 07/28/18 0448 07/27/18 3460 Results 24hrs Laboratory Tests Test 07/28/18 04:48 White Blood Count 6.7 # Red Blood Count 3.25 L Hemoglobin 8.9 L Hematocrit 27.7 L Mean Corpuscular Volume 85.2 Mean Corpuscular Hemoglobin 27.4 L Mean Corpuscular Hemoglobin Concent 32.1 Red Cell Distribution Width 17.1 H Platelet Count 113 L Mean Platelet Volume 10.5 H Immature Granulocytes % 2.800 H Neutrophils % Segmented Neutrophils % (Manual) 48 Band Neutrophils % (Manual) 11 H Lymphocytes % Lymphocytes % (Manual) 27 Reactive Lymphocytes % (Manual) 3 H Monocytes % Monocytes % (Manual) 9 Eosinophils % Basophils % Myelocytes % (Manual) 2 H Nucleated Red Blood Cells % 1 H Immature Granulocytes # 0.190 H Neutrophils # Neutrophils # (Manual) 3.3 Band Neutrophils # 0.7 H Lymphocytes (Manual) 1.8 Lymphocytes # Reactive Lymphocytes # 0.2 H Monocytes # Monocytes # (Manual) 0.6 Eosinophils # Basophils # Myelocytes # 0.1 H Nucleated Red Blood Cells # Platelet Estimate DECREASED Giant Platelets 1 H Polychromasia 2+ Hypochromasia 1+ Poikilocytosis 1+ Anisocytosis 1+ Microcytosis 1+ Spherocytes 1+ Ovalocytes 1+ Medications Medications Current Medications Morphine Sulfate (morphine) 2 mg Q4H PRN IV SEVERE PAIN LEVEL 7-10 Last administered on 07/28/18 02:40; Admin Dose 2 MG; Start 07/19/18 at 13:30 Acetaminophen (Tylenol Tab) 650 mg Q6H PRN PO MILD PAIN LEVEL 1-3 Last administered on 07/27/18 16:22; Admin Dose 650 MG; Start 07/19/18 at 13:30 Benazepril HCl (Lotensin) 40 mg DAILY PO Last administered on 07/28/18 08:30; Admin Dose 40 MG; Start 07/20/18 at 09:00 Carvedilol (Coreg) 6.25 mg BID PO Last administered on 07/28/18 08:31; Admin Dose 6.25 MG; Start 07/19/18 at 21:00 Cholecalciferol (Vitamin D) 400 units DAILY PO Last administered on 07/28/18 08:31; Admin Dose 400 UNITS; Start 07/20/18 at 09:00 Divalproex Sodium (Depakote Er) 250 mg BID PO Last administered on 07/28/18 08:30; Admin Dose 250 MG; Start 07/19/18 at 21:00 Donepezil HCl (Aricept) 10 mg DAILY PO Last administered on 07/28/18 08:31; Admin Dose 10 MG; Start 07/20/18 at 09:00 Dutasteride (Avodart) 0.5 mg DAILY PO Last administered on 07/28/18 08:29; Admin Dose 0.5 MG; Start 07/20/18 at 09:00 Escitalopram Oxalate (Lexapro) 5 mg DAILY PO Last administered on 07/28/18 08:31; Admin Dose 5 MG; Start 07/20/18 at 09:00 Ferrous Sulfate (Ferrous Sulfate (Ec)) 325 mg DAILY PO Last administered on 07/28/18 08:31; Admin Dose 325 MG; Start 07/20/18 at 09:00 Hydrocortisone (Hydrocortisone 0.5% Cr) 1 applic QHS PRN TOP ITCHING; Start 07/19/18 at 13:30 Memantine (Namenda) 10 mg DAILY PO Last administered on 07/28/18 08:30; Admin Dose 10 MG; Start 07/20/18 at 09:00 Pantoprazole (Protonix Tab) 40 mg DAILY@0600 PO Last administered on 07/28/18 05:36; Admin Dose 40 MG; Start 07/20/18 at 06:00 Tamsulosin HCl (Flomax) 0.4 mg HS PO Last administered on 07/27/18 20:34; Admin Dose 0.4 MG; Start 07/19/18 at 21:00 Tramadol HCl (Ultram) 50 mg Q6H PRN PO PAIN 5-10/10 Last administered on 07/26/18 10:41; Admin Dose 50 MG; Start 07/19/18 at 13:30 Olanzapine (Zyprexa) 2.5 mg TID PO Last administered on 07/28/18 13:21; Admin Dose 2.5 MG; Start 07/19/18 at 22:00 Docusate Sodium (Colace) 100 mg BID PRN PO CONSTIPATION; Start 07/23/18 at 08:30 LION ROGERS Jul 28, 2018 15:06
[2018-07-28 15:42] VITALS: BP 109/59; PULSE 93; RESP 13
[2018-07-28 19:39] VITALS: BP 107/59; PULSE 93; RESP 20
[2018-07-28] MEDS: TAMSULOSIN (SR) 0.4 MG CAP PO SCH (21:25)
[2018-07-28] MEDS: traMADol 50 MG TAB PO PRN (21:31)
[2018-07-29 02:09] VITALS: BP 90/55; PULSE 98; RESP 18
[2018-07-29] MEDS: traMADol 50 MG TAB PO PRN ×2 (03:44→22:08)
[2018-07-29] MEDS: PANTOPRAZOLE (EC) 40 MG TAB PO SCH (06:58)
[2018-07-29] MEDS: DONEPEZIL 10 MG TAB PO SCH (08:23)
[2018-07-29] MEDS: OLANZAPINE 2.5 MG TAB PO SCH ×3 (08:24→21:35)
[2018-07-29] MEDS: DUTASTERIDE 0.5 MG CAP PO SCH (08:24)
[2018-07-29] MEDS: FERROUS SULFATE (EC) 325 MG TAB PO SCH (08:24)
[2018-07-29] MEDS: ESCITALOPRAM 10 MG TAB PO SCH (08:24)
[2018-07-29] MEDS: CHOLECALCIFEROL 400 UNITS TAB PO SCH (08:24)
[2018-07-29] MEDS: DIVALPROEX (ER) 250 MG TAB PO SCH ×2 (08:24→21:36)
[2018-07-29] MEDS: MEMANTINE 10 MG TAB PO SCH (08:24)
[2018-07-29 09:05] VITALS: BP 110/68; PULSE 67
[2018-07-29] MEDS: BENAZEPRIL 40 MG TAB PO SCH (09:37)
--- NOTE | 2018-07-29 14:05 | CONS ---
Assessment/Plan Assessment/Plan Hospital Course (Demo Recall) IMPRESSION: 1. Preoperative evaluation prior to a transurethral prostatectomy. Now post-op s/p TURP 2. Hematuria, recurrent. 3. Hypertension, under reasonable control. 4. Dementia. 5. Anemia. 6. EKG with right bundle branch block pattern, negative troponins x3. NL EF by echo 06/01 Recc: -Continue benazepril/coreg and follow BP clsoely -pain control -Follow Hgb -ongoing urology f/u Consultation Date/Type/Reason Admit Date/Time Jul 21, 2018 at 08:05 Initial Consult Date 07/19/18 Type of Consult Cardiology Reason for Consultation HTN Requesting Provider: MARTA MCGUIRE MD Date/Time of Note DATE: 07/29/18 TIME: 14:04 Exam/Review of Systems Vital Signs Vitals Vital Signs Date Temp Pulse Resp B/P (MAP) Pulse Ox O2 O2 Flow FiO2 Time Delivery Rate 07/29/18 Nasal 2.0 09:49 Cannula 07/29/18 97.7 67 110/68 93 09:05 (82) 07/29/18 18 02:09 Intake and Output 07/28/18 07/28/18 07/29/18 1515:00 23:00 07:00 IntakeIntake Total 300 ml 540 ml OutputOutput Total 50 ml 405 ml BalanceBalance 250 ml 135 ml Exam Exam Review of Systems: CONSTITUTIONAL: No fevers, chills. PULMONARY: No sob CARDIOVASCULAR: No chest pain/palpitations GASTROINTESTINAL: No nausea/vomiting. GENITOURINARY: No hematuria/dysuria. MUSCULOSKELETAL: No myagias/arthalgias. PSYCHIATRIC: The patient denies depression. NEUROLOGIC: No weakness Constitutional: alert, oriented Psych: no complaints Head: normocephalic ENMT: mucosa pink and moist Neck: supple, jvd (9 cm water) Respiratory: clear to auscultation Cardiovascular: regular rate and rhythm Gastrointestinal: soft, non-tender Musculoskeletal: muscle tone (normal) Extremities: edema (none) Neurological: other (No focal deficits) Labs Result Diagram: 07/29/18 0459 07/29/18 0459 Results 24hrs Laboratory Tests Test 07/29/18 04:59 White Blood Count 11.3 #H Red Blood Count 3.08 L Hemoglobin 8.3 L Hematocrit 26.5 L Mean Corpuscular Volume 86.0 Mean Corpuscular Hemoglobin 26.9 L Mean Corpuscular Hemoglobin Concent 31.3 L Red Cell Distribution Width 17.5 H Platelet Count 123 L Mean Platelet Volume 10.5 H Immature Granulocytes % 2.100 H Neutrophils % Segmented Neutrophils % (Manual) 46 Band Neutrophils % (Manual) 10 H Lymphocytes % Lymphocytes % (Manual) 26 Reactive Lymphocytes % (Manual) 4 H Monocytes % Monocytes % (Manual) 14 H Eosinophils % Basophils % Nucleated Red Blood Cells % 1 H Immature Granulocytes # 0.240 H Neutrophils # Neutrophils # (Manual) 5.3 Band Neutrophils # 1.1 H Lymphocytes (Manual) 2.9 Lymphocytes # Reactive Lymphocytes # 0.4 H Monocytes # Monocytes # (Manual) 1.5 H Eosinophils # Basophils # Nucleated Red Blood Cells # Platelet Estimate DECREASED Giant Platelets 2 H Polychromasia 1+ Poikilocytosis 1+ Anisocytosis 1+ Microcytosis 1+ Spherocytes 1+ Sodium Level 136 Potassium Level 4.3 Chloride Level 101 Carbon Dioxide Level 28 Anion Gap 7 Blood Urea Nitrogen 16 Creatinine 0.84 Est Glomerular Filtrat Rate mL/min Glucose Level 115 Calcium Level 8.6 Medications Medications Current Medications Morphine Sulfate (morphine) 2 mg Q4H PRN IV SEVERE PAIN LEVEL 7-10 Last admi nistered on 07/28/18 02:40; Admin Dose 2 MG; Start 07/19/18 at 13:30 Acetaminophen (Tylenol Tab) 650 mg Q6H PRN PO MILD PAIN LEVEL 1-3 Last administered on 07/27/18 16:22; Admin Dose 650 MG; Start 07/19/18 at 13:30 Benazepril HCl (Lotensin) 40 mg DAILY PO Last administered on 07/29/18 09:37; Admin Dose 40 MG; Start 07/20/18 at 09:00 Carvedilol (Coreg) 6.25 mg BID PO Last administered on 07/29/18 09:38; Admin Dose 6.25 MG; Start 07/19/18 at 21:00 Cholecalciferol (Vitamin D) 400 units DAILY PO Last administered on 07/29/18 08:24; Admin Dose 400 UNITS; Start 07/20/18 at 09:00 Divalproex Sodium (Depakote Er) 250 mg BID PO Last administered on 07/29/18 08:24; Admin Dose 250 MG; Start 07/19/18 at 21:00 Donepezil HCl (Aricept) 10 mg DAILY PO Last administered on 07/29/18 08:23; Admin Dose 10 MG; Start 07/20/18 at 09:00 Dutasteride (Avodart) 0.5 mg DAILY PO Last administered on 07/29/18 08:24; Admin Dose 0.5 MG; Start 07/20/18 at 09:00 Escitalopram Oxalate (Lexapro) 5 mg DAILY PO Last administered on 07/29/18 08:24; Admin Dose 5 MG; Start 07/20/18 at 09:00 Ferrous Sulfate (Ferrous Sulfate (Ec)) 325 mg DAILY PO Last administered on 07/29/18 08:24; Admin Dose 325 MG; Start 07/20/18 at 09:00 Hydrocortisone (Hydrocortisone 0.5% Cr) 1 applic QHS PRN TOP ITCHING; Start 07/19/18 at 13:30 Memantine (Namenda) 10 mg DAILY PO Last administered on 07/29/18 08:24; Admin Dose 10 MG; Start 07/20/18 at 09:00 Pantoprazole (Protonix Tab) 40 mg DAILY@0600 PO Last administered on 07/29/18 06:58; Admin Dose 40 MG; Start 07/20/18 at 06:00 Tamsulosin HCl (Flomax) 0.4 mg HS PO Last administered on 07/28/18 21:25; Admin Dose 0.4 MG; Start 07/19/18 at 21:00 Tramadol HCl (Ultram) 50 mg Q6H PRN PO PAIN 5-1010 Last administered on 07/29/18 03:44; Admin Dose 50 MG; Start 07/19/18 at 13:30 Olanzapine (Zyprexa) 2.5 mg TID PO Last administered on 07/29/18 13:07; Admin Dose 2.5 MG; Start 07/19/18 at 22:00 Docusate Sodium (Colace) 100 mg BID PRN PO CONSTIPATION; Start 07/23/18 at 08:30 LION ROGERS Jul 29, 2018 14:05
--- NOTE | 2018-07-29 14:21 | PN ---
Date/Time of Note Date/Time of Note DATE: 07/29/18 TIME: 14:19 Assessment/Plan Lines/Catheters IV Catheter Type (from [facility]): Saline Lock Sarmiento in Place (from [facility]): No Assessment/Plan Chief Complaint/Hosp Course Patient is status post transurethral resection of prostate. The pathology report showed 70 g of benign prostatic tissue. I did remove the Sarmiento catheter. He has been voiding and has no urinary retention. The color of the urine remains blood-tinged. His hemoglobin is stable. Urologically he may be discharged and gradually his urine will clear up. A urine was sent for culture and sensitivity and if it shows any infection then we will prescribe the appropriate antibiotic for him Subjective 24 Hr Interval Summary Patient appears to be comfortable and denies having any pain. His nurse tells me that he complains of pain when he urinates Exam/Review of Systems Vital Signs Vitals Vital Signs Date Temp Pulse Resp B/P (MAP) Pulse Ox O2 O2 Flow FiO2 Time Delivery Rate 07/29/18 Nasal 2.0 09:49 Cannula 07/29/18 97.7 67 110/68 93 09:05 (82) 07/29/18 18 02:09 Intake and Output 07/28/18 07/28/18 07/29/18 1515:00 23:00 07:00 IntakeIntake Total 300 ml 540 ml OutputOutput Total 50 ml 405 ml BalanceBalance 250 ml 135 ml Exam Free Text/Dictation The urine remains blood-tinged. There are no blood clots. We will send urine for culture and sensitivity Results Result Diagram: 07/29/18 0459 07/29/18 0459 SUKHWINDER SIFUENTES MD Jul 29, 2018 14:21
--- NOTE | 2018-07-29 16:32 | PN ---
Date/Time of Note Date/Time of Note DATE: 07/29/18 TIME: 16:29 Assessment/Plan VTE Prophylaxis Risk score (from Ns)>0 risk: 4 SCD applied (from [facility] [place]): Yes Pharmacological prophylaxis: NA/contraindicated Pharm contraindication: bleeding Lines/Catheters [facility] Saline Lock Urinary Cath still in place: No Assessment/Plan Hospital Course Patient with low-grade fever last night and slight increase in white blood cells, continues to have hematuria, able to void, follow-up on urine culture. Assessment/Plan - Enlarged prostate and Recurrent gross hematuria. s/p TURP on 07/21/2018. Dr. Dolan is following in urology consultation. - Anemia of acute blood loss, continue to monitor H&H, transfuse as needed. - Benign prostatic hypertrophy. Continue Flomax and dutasteride. - Preserved ejection fraction per recent echo - Hypertension. Continue Lotensin. - Dementia with behavioral disturbance. Continue Aricept, Namenda, Zyprexa. - Depression. Continue Lexapro. Further recommendations based on clinical course. Plan of care discussed with Dr. Becker. Result Diagram: 07/29/18 0459 07/29/18 0459 Results 24hrs Laboratory Tests Test 07/29/18 04:59 White Blood Count 11.3 #H Red Blood Count 3.08 L Hemoglobin 8.3 L Hematocrit 26.5 L Mean Corpuscular Volume 86.0 Mean Corpuscular Hemoglobin 26.9 L Mean Corpuscular Hemoglobin Concent 31.3 L Red Cell Distribution Width 17.5 H Platelet Count 123 L Mean Platelet Volume 10.5 H Immature Granulocytes % 2.100 H Neutrophils % Segmented Neutrophils % (Manual) 46 Band Neutrophils % (Manual) 10 H Lymphocytes % Lymphocytes % (Manual) 26 Reactive Lymphocytes % (Manual) 4 H Monocytes % Monocytes % (Manual) 14 H Eosinophils % Basophils % Nucleated Red Blood Cells % 1 H Immature Granulocytes # 0.240 H Neutrophils # Neutrophils # (Manual) 5.3 Band Neutrophils # 1.1 H Lymphocytes (Manual) 2.9 Lymphocytes # Reactive Lymphocytes # 0.4 H Monocytes # Monocytes # (Manual) 1.5 H Eosinophils # Basophils # Nucleated Red Blood Cells # Platelet Estimate DECREASED Giant Platelets 2 H Polychromasia 1+ Poikilocytosis 1+ Anisocytosis 1+ Microcytosis 1+ Spherocytes 1+ Sodium Level 136 Potassium Level 4.3 Chloride Level 101 Carbon Dioxide Level 28 Anion Gap 7 Blood Urea Nitrogen 16 Creatinine 0.84 Est Glomerular Filtrat Rate mL/min Glucose Level 115 Calcium Level 8.6 Exam/Review of Systems Exam Vitals Vital Signs Date Temp Pulse Resp B/P (MAP) Pulse Ox O2 O2 Flow FiO2 Time Delivery Rate 07/29/18 Nasal 2.0 09:49 Cannula 07/29/18 97.7 67 110/68 93 09:05 (82) 07/29/18 18 02:09 Intake and Output 07/28/18 07/28/18 07/29/18 1414:59 22:59 06:59 IntakeIntake Total 300 ml 540 ml OutputOutput Total 50 ml 405 ml BalanceBalance 250 ml 135 ml Exam Constitutional: alert, oriented, demented Respiratory: clear to auscultation Cardiovascular: nl pulses Gastrointestinal: soft, non-tender Musculoskeletal: nl extremities to inspection Extremities: normal pulses Results Results 24hrs Laboratory Tests Test 07/29/18 04:59 White Blood Count 11.3 #H Red Blood Count 3.08 L Hemoglobin 8.3 L Hematocrit 26.5 L Mean Corpuscular Volume 86.0 Mean Corpuscular Hemoglobin 26.9 L Mean Corpuscular Hemoglobin Concent 31.3 L Red Cell Distribution Width 17.5 H Platelet Count 123 L Mean Platelet Volume 10.5 H Immature Granulocytes % 2.100 H Neutrophils % Segmented Neutrophils % (Manual) 46 Band Neutrophils % (Manual) 10 H Lymphocytes % Lymphocytes % (Manual) 26 Reactive Lymphocytes % (Manual) 4 H Monocytes % Monocytes % (Manual) 14 H Eosinophils % Basophils % Nucleated Red Blood Cells % 1 H Immature Granulocytes # 0.240 H Neutrophils # Neutrophils # (Manual) 5.3 Band Neutrophils # 1.1 H Lymphocytes (Manual) 2.9 Lymphocytes # Reactive Lymphocytes # 0.4 H Monocytes # Monocytes # (Manual) 1.5 H Eosinophils # Basophils # Nucleated Red Blood Cells # Platelet Estimate DECREASED Giant Platelets 2 H Polychromasia 1+ Poikilocytosis 1+ Anisocytosis 1+ Microcytosis 1+ Spherocytes 1+ Sodium Level 136 Potassium Level 4.3 Chloride Level 101 Carbon Dioxide Level 28 Anion Gap 7 Blood Urea Nitrogen 16 Creatinine 0.84 Est Glomerular Filtrat Rate mL/min Glucose Level 115 Calcium Level 8.6 Medications Medication Current Medications Morphine Sulfate (morphine) 2 mg Q4H PRN IV SEVERE PAIN LEVEL 7-10 Last administered on 07/28/18 02:40; Admin Dose 2 MG; Start 07/19/18 at 13:30 Acetaminophen (Tylenol Tab) 650 mg Q6H PRN PO MILD PAIN LEVEL 1-3 Last adm inistered on 07/27/18 16:22; Admin Dose 650 MG; Start 07/19/18 at 13:30 Benazepril HCl (Lotensin) 40 mg DAILY PO Last administered on 07/29/18 09:37; Admin Dose 40 MG; Start 07/20/18 at 09:00 Carvedilol (Coreg) 6.25 mg BID PO Last administered on 07/29/18 09:38; Admin Dose 6.25 MG; Start 07/19/18 at 21:00 Cholecalciferol (Vitamin D) 400 units DAILY PO Last administered on 07/29/18 08:24; Admin Dose 400 UNITS; Start 07/20/18 at 09:00 Divalproex Sodium (Depakote Er) 250 mg BID PO Last administered on 07/29/18 08:24; Admin Dose 250 MG; Start 07/19/18 at 21:00 Donepezil HCl (Aricept) 10 mg DAILY PO Last administered on 07/29/18 08:23; Admin Dose 10 MG; Start 07/20/18 at 09:00 Dutasteride (Avodart) 0.5 mg DAILY PO Last administered on 07/29/18 08:24; Admin Dose 0.5 MG; Start 07/20/18 at 09:00 Escitalopram Oxalate (Lexapro) 5 mg DAILY PO Last administered on 07/29/18 08:24; Admin Dose 5 MG; Start 07/20/18 at 09:00 Ferrous Sulfate (Ferrous Sulfate (Ec)) 325 mg DAILY PO Last administered on 07/29/18 08:24; Admin Dose 325 MG; Start 07/20/18 at 09:00 Hydrocortisone (Hydrocortisone 0.5% Cr) 1 applic QHS PRN TOP ITCHING; Start 07/19/18 at 13:30 Memantine (Namenda) 10 mg DAILY PO Last administered on 07/29/18 08:24; Admin Dose 10 MG; Start 07/20/18 at 09:00 Pantoprazole (Protonix Tab) 40 mg DAILY@0600 PO Last administered on 07/29/18at 06:58; Admin Dose 40 MG; Start 07/20/18 at 06:00 Tamsulosin HCl (Flomax) 0.4 mg HS PO Last administered on 07/28/18at 21:25; Admin Dose 0.4 MG; Start 07/19/18 at 21:00 Tramadol HCl (Ultram) 50 mg Q6H PRN PO PAIN -01/20 Last administered on 9at 03:44; Admin Dose 50 MG; Start 07/19/18 at 13:30 Olanzapine (Zyprexa) 2.5 mg TID PO Last administered on 07/29/18at 13:07; Admin Dose 2.5 MG; Start 07/19/18 at 22:00 Docusate Sodium (Colace) 100 mg BID PRN PO CONSTIPATION; Start 07/23/18 at 08:30 JOYCE CHOW Jul 29, 2018 16:32
[2018-07-29 16:40] VITALS: BP 87/50; PULSE 87; RESP 18
[2018-07-29] MEDS ORDERED: SOD CHLORIDE 0.9% 250 ML IV ONE (17:00)
[2018-07-29 18:26] VITALS: BP 109/59; PULSE 95; RESP 18
[2018-07-29 19:25] VITALS: BP 95/50; PULSE 94; RESP 20
[2018-07-29] MEDS: TAMSULOSIN (SR) 0.4 MG CAP PO SCH (21:36)
[2018-07-30 02:00] VITALS: BP 94/51; PULSE 82; RESP 20
[2018-07-30] MEDS: PANTOPRAZOLE (EC) 40 MG TAB PO SCH (05:52)
[2018-07-30 07:09] VITALS: BP 88/51; PULSE 87; RESP 17
[2018-07-30] MEDS ORDERED: SOD CHLORIDE 0.9% 1,000 ML IV ONE (09:00)
[2018-07-30] MEDS ORDERED: BENAZEPRIL 40 MG TAB PO SCH (09:00)
[2018-07-30] MEDS: MEMANTINE 10 MG TAB PO SCH (10:13)
[2018-07-30] MEDS: OLANZAPINE 2.5 MG TAB PO SCH ×3 (10:13→20:47)
[2018-07-30] MEDS: ESCITALOPRAM 10 MG TAB PO SCH (10:14)
[2018-07-30] MEDS: FERROUS SULFATE (EC) 325 MG TAB PO SCH (10:14)
[2018-07-30] MEDS: DONEPEZIL 10 MG TAB PO SCH (10:14)
[2018-07-30] MEDS: CHOLECALCIFEROL 400 UNITS TAB PO SCH (10:14)
[2018-07-30] MEDS: DIVALPROEX (ER) 250 MG TAB PO SCH ×2 (10:14→20:47)
[2018-07-30] MEDS: DUTASTERIDE 0.5 MG CAP PO SCH (10:16)
[2018-07-30 10:23] VITALS: BP 98/56; PULSE 91
--- NOTE | 2018-07-30 10:38 | PN ---
Date/Time of Note Date/Time of Note DATE: 07/30/18 TIME: 10:38 Assessment/Plan VTE Prophylaxis Risk score (from [facility] [place])>0 risk: 4 SCD applied (from [facility] [place]): Yes SCD contraindicated: other Pharmacological prophylaxis: other Pharm contraindication: other Lines/Catheters IV Catheter Type (from [facility] Saline Lock Urinary Cath still in place: No Assessment/Plan Assessment/Plan - HYPOTENSION - IVF - cardiac med adjusted per button inspector - Enlarged prostate and Recurrent gross hematuria. s/p TURP on 07/21/2018. Dr. Dolan is following in urology consultation. - Anemia of acute blood loss, continue to monitor H&H, transfuse as needed. - Benign prostatic hypertrophy. Continue Flomax and dutasteride. - Preserved ejection fraction per recent echo - Hypertension. Continue Lotensin. - Dementia with behavioral disturbance. Continue Aricept, Namenda, Zyprexa. - Depression. Continue Lexapro. - Thrombocytopenia- oncology consult appreciated Further recommendations based on clinical course. Plan of care discussed with Dr. Becker. Result Diagram: 07/30/18 0505 07/29/18 0459 Results 24hrs Laboratory Tests Test 07/30/18 05:05 White Blood Count 8.1 # Red Blood Count 3.04 L Hemoglobin 8.3 L Hematocrit 26.3 L Mean Corpuscular Volume 86.5 Mean Corpuscular Hemoglobin 27.3 L Mean Corpuscular Hemoglobin Concent 31.6 L Red Cell Distribution Width 17.3 H Platelet Count 134 L Mean Platelet Volume 10.2 Immature Granulocytes % 2.600 H Neutrophils % Segmented Neutrophils % (Manual) 57 Lymphocytes % Lymphocytes % (Manual) 30 Reactive Lymphocytes % (Manual) 1 H Monocytes % Monocytes % (Manual) 11 Eosinophils % Eosinophils % (Manual) 1 Basophils % Nucleated Red Blood Cells % 0.4 H Immature Granulocytes # 0.210 H Neutrophils # Lymphocytes (Manual) 2.4 Lymphocytes # Reactive Lymphocytes # 0.0 Monocytes # Monocytes # (Manual) 0.8 Eosinophils # Basophils # Nucleated Red Blood Cells # Platelet Estimate DECREASED Giant Platelets 11 H Polychromasia 3+ Poikilocytosis 1+ Subjective 24 Hr Interval Summary Free Text/Dictation - nad -afebrile; wbc wnl - hypotensive- BP meds adjusted; started on IVF - continues to have hematuria, able to void - follow-up on urine culture. Constitutional: requiring IVF, requiring O2 ENT: no complaints Respiratory: no complaints Cardiovascular: no complaints Gastrointestinal: no complaints Genitourinary: bleeding Musculoskeletal: no complaints Skin: no complaints, erythema Exam/Review of Systems Exam Vitals Vital Signs Date Temp Pulse Resp B/P (MAP) Pulse Ox O2 O2 Flow FiO2 Time Delivery Rate 07/30/18 91 98/56 (70) 10:23 07/30/18 98.2 17 97 Nasal 07:09 Cannula 07/30/18 3.0 01:27 Intake and Output 07/29/18 07/29/18 07/30/18 1414:59 22:59 06:59 IntakeIntake Total 400 ml 2500 ml 240 ml OutputOutput Total 250 ml BalanceBalance 400 ml 2500 ml -10 ml Constitutional: alert, well developed Psych: nl mood/affect, confusion Eyes: EOMI ENMT: nl external ears & nose Neck: non-tender Respiratory: clear to auscultation Cardiovascular: nl pulses, other (s1s2) Gastrointestinal: soft, non-tender Musculoskeletal: nl extremities to inspection Extremities: normal pulses Neurological: nl speech, other (alert/responsive) Skin: nl turgor Lymph: nontender Results Results 24hrs Laboratory Tests Test 07/30/18 05:05 White Blood Count 8.1 # Red Blood Count 3.04 L Hemoglobin 8.3 L Hematocrit 26.3 L Mean Corpuscular Volume 86.5 Mean Corpuscular Hemoglobin 27.3 L Mean Corpuscular Hemoglobin Concent 31.6 L Red Cell Distribution Width 17.3 H Platelet Count 134 L Mean Platelet Volume 10.2 Immature Granulocytes % 2.600 H Neutrophils % Segmented Neutrophils % (Manual) 57 Lymphocytes % Lymphocytes % (Manual) 30 Reactive Lymphocytes % (Manual) 1 H Monocytes % Monocytes % (Manual) 11 Eosinophils % Eosinophils % (Manual) 1 Basophils % Nucleated Red Blood Cells % 0.4 H Immature Granulocytes # 0.210 H Neutrophils # Lymphocytes (Manual) 2.4 Lymphocytes # Reactive Lymphocytes # 0.0 Monocytes # Monocytes # (Manual) 0.8 Eosinophils # Basophils # Nucleated Red Blood Cells # Platelet Estimate DECREASED Giant Platelets 11 H Polychromasia 3+ Poikilocytosis 1+ Medications Medication Current Medications Morphine Sulfate (morphine) 2 mg Q4H PRN IV SEVERE PAIN LEVEL 7-10 Last administered on 07/28/18at 02:40; Admin Dose 2 MG; Start 07/19/18 at 13:30 Acetaminophen (Tylenol Tab) 650 mg Q6H PRN PO MILD PAIN LEVEL 1-3 Last administered on 07/27/18 16:22; Admin Dose 650 MG; Start 07/19/18 at 13:30 Carvedilol (Coreg) 6.25 mg BID PO Last administered on 07/29/18 09:38; Admin Dose 6.25 MG; Start 07/19/18 at 21:00 Cholecalciferol (Vitamin D) 400 units DAILY PO Last administered on 07/30/18 10:14; Admin Dose 400 UNITS; Start 07/20/18 at 09:00 Divalproex Sodium (Depakote Er) 250 mg BID PO Last administered on 07/30/18 10:14; Admin Dose 250 MG; Start 07/19/18 at 21:00 Donepezil HCl (Aricept) 10 mg DAILY PO Last administered on 07/30/18 10:14; Admin Dose 10 MG; Start 07/20/18 at 09:00 Dutasteride (Avodart) 0.5 mg DAILY PO Last administered on 07/30/18 10:16; Admin Dose 0.5 MG; Start 07/20/18 at 09:00 Escitalopram Oxalate (Lexapro) 5 mg DAILY PO Last administered on 07/30/18 10:14; Admin Dose 5 MG; Start 07/20/18 at 09:00 Ferrous Sulfate (Ferrous Sulfate (Ec)) 325 mg DAILY PO Last administered on 07/30/18 10:14; Admin Dose 325 MG; Start 07/20/18 at 09:00 Hydrocortisone (Hydrocortisone 0.5% Cr) 1 applic QHS PRN TOP ITCHING; Start 07/19/18 at 13:30 Memantine (Namenda) 10 mg DAILY PO Last administered on 07/30/18 10:13; Admin Dose 10 MG; Start 07/20/18 at 09:00 Pantoprazole (Protonix Tab) 40 mg DAILY@0600 PO Last administered on 07/30/18 05:52; Admin Dose 40 MG; Start 07/20/18 at 06:00 Tamsulosin HCl (Flomax) 0.4 mg HS PO Last administered on 07/29/18 21:36; Admin Dose 0.4 MG; Start 07/19/18 at 21:00 Tramadol HCl (Ultram) 50 mg Q6H PRN PO PAIN 5-1010 Last administered on 07/29/18at 22:08; Admin Dose 50 MG; Start 07/19/18 at 13:30 Olanzapine (Zyprexa) 2.5 mg TID PO Last administered on 07/30/18at 10:13; Admin Dose 2.5 MG; Start 07/19/18 at 22:00 Docusate Sodium (Colace) 100 mg BID PRN PO CONSTIPATION; Start 07/23/18 at 08:30 Benazepril HCl (Lotensin) 20 mg DAILY PO ; Start 07/30/18 at 09:00 Sodium Chloride 1,000 ml @ 60 mls/hr [id number] ONCE IV Last administered on 07/30/18at 10:10; Admin Dose 60 MLS/HR; Start 07/30/18 at 09:00; Stop 07/31/18 at 01:39 FROYLAN ALVAREZ Jul 30, 2018 10:38
--- NOTE | 2018-07-30 12:39 | PN ---
Date/Time of Note Date/Time of Note DATE: 07/30/18 TIME: 12:38 Assessment/Plan Lines/Catheters IV Catheter Type (from [facility]): Saline Lock Sarmiento in Place (from [facility]): No Assessment/Plan Chief Complaint/Hosp Course Patient is status post transurethral resection of prostate. The pathology report showed 70 g of benign prostatic tissue. I did remove the Sarmiento catheter. He has been voiding and has no urinary retention. The color of the urine remains blood-tinged. His hemoglobin is stable. Urologically he may be discharged and gradually his urine will clear up. A urine was sent for culture and sensitivity and showed no growth in 24 hours. At the present no plan for any new urological intervention or medications. Subjective 24 Hr Interval Summary Patient is sleeping. He has been voiding and the urine is clearing up. Exam/Review of Systems Vital Signs Vitals Vital Signs Date Temp Pulse Resp B/P (MAP) Pulse Ox O2 O2 Flow FiO2 Time Delivery Rate 07/30/18 91 98/56 (70) 10:23 07/30/18 98.2 17 97 Nasal 07:09 Cannula 07/30/18 3.0 01:27 Intake and Output 07/29/18 07/29/18 07/30/18 1515:00 23:00 07:00 IntakeIntake Total 400 ml 2500 ml 240 ml OutputOutput Total 250 ml BalanceBalance 400 ml 2500 ml -10 ml Exam Free Text/Dictation Urine is clearer than before. Results Result Diagram: 07/30/18 0505 07/29/18 0459 SUKHWINDER SIFUENTES MD Jul 30, 2018 12:39
--- NOTE | 2018-07-30 17:03 | CONS ---
Assessment/Plan Assessment/Plan Hospital Course (Demo Recall) IMPRESSION: 1. Preoperative evaluation prior to a transurethral prostatectomy. Now post-op s/p TURP 2. Hematuria, recurrent. 3. Hypertension-now with borderline hypotension? sepsis 4. Dementia. 5. Anemia. 6. EKG with right bundle branch block pattern, negative troponins x3. NL EF by echo 06/01 Recc: -Continue benazepril/coreg and follow BP closely and will reduce further -started on IVF given low BP -pain control -Follow Hgb -ongoing urology f/u Consultation Date/Type/Reason Admit Date/Time Jul 21, 2018 at 08:05 Initial Consult Date 07/19/18 Type of Consult Cardiology Reason for Consultation hypotension Requesting Provider: MARTA MCGUIRE MD Date/Time of Note DATE: 07/30/18 TIME: 17:00 Exam/Review of Systems Vital Signs Vitals Vital Signs Date Temp Pulse Resp B/P (MAP) Pulse Ox O2 O2 Flow FiO2 Time Delivery Rate 07/30/18 91 98/56 (70) 10:23 07/30/18 Nasal 2.0 08:30 Cannula 07/30/18 98.2 17 97 07:09 Intake and Output 07/29/18 07/29/18 07/30/18 1515:00 23:00 07:00 IntakeIntake Total 400 ml 2500 ml 240 ml OutputOutput Total 250 ml BalanceBalance 400 ml 2500 ml -10 ml Exam Exam Review of Systems: CONSTITUTIONAL: No fevers, chills. PULMONARY: No sob CARDIOVASCULAR: No chest pain/palpitations GASTROINTESTINAL: No nausea/vomiting. GENITOURINARY: No hematuria/dysuria. MUSCULOSKELETAL: No myagias/arthalgias. PSYCHIATRIC: The patient denies depression. NEUROLOGIC: lethargic somewhat Constitutional: other (sleeping, arousable) Psych: no complaints Head: normocephalic ENMT: mucosa pink and moist Neck: supple, jvd (9 cm water) Respiratory: diminished breath sounds Cardiovascular: regular rate and rhythm Gastrointestinal: soft, non-tender Musculoskeletal: muscle weakness Extremities: edema (none) Neurological: other (No focal deficits) Labs Result Diagram: 07/30/18 0505 07/29/18 0459 Results 24hrs Laboratory Tests Test 07/30/18 05:05 White Blood Count 8.1 # Red Blood Count 3.04 L Hemoglobin 8.3 L Hematocrit 26.3 L Mean Corpuscular Volume 86.5 Mean Corpuscular Hemoglobin 27.3 L Mean Corpuscular Hemoglobin Concent 31.6 L Red Cell Distribution Width 17.3 H Platelet Count 134 L Mean Platelet Volume 10.2 Immature Granulocytes % 2.600 H Neutrophils % Segmented Neutrophils % (Manual) 57 Lymphocytes % Lymphocytes % (Manual) 30 Reactive Lymphocytes % (Manual) 1 H Monocytes % Monocytes % (Manual) 11 Eosinophils % Eosinophils % (Manual) 1 Basophils % Nucleated Red Blood Cells % 0.4 H Immature Granulocytes # 0.210 H Neutrophils # Lymphocytes (Manual) 2.4 Lymphocytes # Reactive Lymphocytes # 0.0 Monocytes # Monocytes # (Manual) 0.8 Eosinophils # Basophils # Nucleated Red Blood Cells # Platelet Estimate DECREASED Giant Platelets 11 H Polychromasia 3+ Poikilocytosis 1+ Medications Medications Current Medications Morphine Sulfate (morphine) 2 mg Q4H PRN IV SEVERE PAIN LEVEL 7-10 Last administered on 07/28/18 02:40; Admin Dose 2 MG; Start 07/19/18 at 13:30 Acetaminophen (Tylenol Tab) 650 mg Q6H PRN PO MILD PAIN LEVEL 1-3 Last administered on 07/27/18 16:22; Admin Dose 650 MG; Start 07/19/18 at 13:30 Carvedilol (Coreg) 6.25 mg BID PO Last administered on 07/29/18 09:38; Admin Dose 6.25 MG; Start 07/19/18 at 21:00 Cholecalciferol (Vitamin D) 400 units DAILY PO Last administered on 07/30/18 10:14; Admin Dose 400 UNITS; Start 07/20/18 at 09:00 Divalproex Sodium (Depakote Er) 250 mg BID PO Last administered on 07/30/18 10:14; Admin Dose 250 MG; Start 07/19/18 at 21:00 Donepezil HCl (Aricept) 10 mg DAILY PO Last administered on 07/30/18 10:14; Admin Dose 10 MG; Start 07/20/18 at 09:00 Dutasteride (Avodart) 0.5 mg DAILY PO Last administered on 07/30/18 10:16; Admin Dose 0.5 MG; Start 07/20/18 at 09:00 Escitalopram Oxalate (Lexapro) 5 mg DAILY PO Last administered on 07/30/18 10:14; Admin Dose 5 MG; Start 07/20/18 at 09:00 Ferrous Sulfate (Ferrous Sulfate (Ec)) 325 mg DAILY PO Last administered on 07/30/18 10:14; Admin Dose 325 MG; Start 07/20/18 at 09:00 Hydrocortisone (Hydrocortisone 0.5% Cr) 1 applic QHS PRN TOP ITCHING; Start 07/19/18 at 13:30 Memantine (Namenda) 10 mg DAILY PO Last administered on 07/30/18 10:13; Admin Dose 10 MG; Start 07/20/18 at 09:00 Pantoprazole (Protonix Tab) 40 mg DAILY@0600 PO Last administered on 07/30/18 05:52; Admin Dose 40 MG; Start 07/20/18 at 06:00 Tamsulosin HCl (Flomax) 0.4 mg HS PO Last administered on 07/29/18 21:36; Admin Dose 0.4 MG; Start 07/19/18 at 21:00 Tramadol HCl (Ultram) 50 mg Q6H PRN PO PAIN 5-01/20 Last administered on 07/29/18 22:08; Admin Dose 50 MG; Start 07/19/18 at 13:30 Olanzapine (Zyprexa) 2.5 mg TID PO Last administered on 07/30/18 13:31; Admin Dose 2.5 MG; Start 07/19/18 at 22:00 Docusate Sodium (Colace) 100 mg BID PRN PO CONSTIPATION; Start 07/23/18 at 08:30 Benazepril HCl (Lotensin) 20 mg DAILY PO ; Start 07/30/18 at 09:00 Sodium Chloride 1,000 ml @ 60 mls/hr [id number] ONCE IV Last administered on 07/30/18 10:10; Admin Dose 60 MLS/HR; Start 07/30/18 at 09:00; Stop 07/31/18 at 01:39 LION ROGERS Jul 30, 2018 17:03
[2018-07-30] MEDS: traMADol 50 MG TAB PO PRN (17:15)
[2018-07-30 19:35] VITALS: BP 113/57; PULSE 95; RESP 20
[2018-07-30] MEDS: ACETAMINOPHEN 325 MG TAB PO PRN (20:47)
[2018-07-30] MEDS: TAMSULOSIN (SR) 0.4 MG CAP PO SCH (20:48)
[2018-07-31] MEDS: traMADol 50 MG TAB PO PRN (01:52)
[2018-07-31 02:15] VITALS: BP 102/56; PULSE 86; RESP 18
[2018-07-31] MEDS: PANTOPRAZOLE (EC) 40 MG TAB PO SCH (05:26)
[2018-07-31 08:25] VITALS: BP 105/60; PULSE 94; RESP 18
[2018-07-31] MEDS: BENAZEPRIL 10 MG TAB PO SCH (09:00)
[2018-07-31] MEDS: FERROUS SULFATE (EC) 325 MG TAB PO SCH (09:13)
[2018-07-31] MEDS: CHOLECALCIFEROL 400 UNITS TAB PO SCH (09:13)
[2018-07-31] MEDS: OLANZAPINE 2.5 MG TAB PO SCH ×3 (09:13→21:31)
[2018-07-31] MEDS: DUTASTERIDE 0.5 MG CAP PO SCH (09:13)
[2018-07-31] MEDS: MEMANTINE 10 MG TAB PO SCH (09:13)
[2018-07-31] MEDS: DONEPEZIL 10 MG TAB PO SCH (09:13)
[2018-07-31] MEDS: DIVALPROEX (ER) 250 MG TAB PO SCH ×2 (09:13→21:31)
[2018-07-31] MEDS: ESCITALOPRAM 10 MG TAB PO SCH (09:13)
--- NOTE | 2018-07-31 12:46 | PN ---
Date/Time of Note Date/Time of Note DATE: 07/31/18 TIME: 12:45 Assessment/Plan VTE Prophylaxis Risk score (from [facility] [place])>0 risk: 4 SCD applied (from [facility] [place]): Yes Pharmacological prophylaxis: LMWH Lines/Catheters IV C[facility]ter Type (from [facility] Peripheral IV Urinary Cath still in place: No Assessment/Plan Hospital Course - HYPOTENSION - IVF - cardiac med adjusted per fur remodeler - Enlarged prostate and Recurrent gross hematuria. s/p TURP on 07/21/2018. Dr. Dolan is following in urology consultation. - Anemia of acute blood loss, continue to monitor H&H, transfuse as needed. - Benign prostatic hypertrophy. Continue Flomax and dutasteride. - Preserved ejection fraction per recent echo - Hypertension. Continue Lotensin. - Dementia with behavioral disturbance. Continue Aricept, Namenda, Zyprexa. - Depression. Continue Lexapro. - Thrombocytopenia- oncology consult appreciated Result Diagram: 07/31/18 0446 07/29/18 0459 Results 24hrs Laboratory Tests Test 07/31/18 04:46 White Blood Count 5.5 # Red Blood Count 2.94 L Hemoglobin 7.8 L Hematocrit 25.2 L Mean Corpuscular Volume 85.7 Mean Corpuscular Hemoglobin 26.5 L Mean Corpuscular Hemoglobin Concent 31.0 L Red Cell Distribution Width 17.2 H Platelet Count 135 L Mean Platelet Volume 10.2 Immature Granulocytes % 2.300 H Neutrophils % Segmented Neutrophils % (Manual) 36 L Lymphocytes % Lymphocytes % (Manual) 52 H Monocytes % Monocytes % (Manual) 7 Eosinophils % Eosinophils % (Manual) 3 Basophils % Metamyelocytes % (manual) 2 H Nucleated Red Blood Cells % 1 H Immature Granulocytes # 0.130 H Neutrophils # Lymphocytes (Manual) 2.8 Lymphocytes # Monocytes # Monocytes # (Manual) 0.3 Eosinophils # Basophils # Metamyelocytes # 0.1 H Nucleated Red Blood Cells # Platelet Estimate DECREASED Polychromasia 1+ Poikilocytosis 1+ Anisocytosis 2+ Ovalocytes 1+ Subjective 24 Hr Interval Summary Free Text/Dictation Patient has no complaints Exam/Review of Systems Exam Vitals Vital Signs Date Temp Pulse Resp B/P (MAP) Pulse Ox O2 O2 Flow FiO2 Time Delivery Rate 07/31/18 98.3 94 18 105/60 94 08:25 (75) 07/31/18 3.0 01:24 07/30/18 Nasal 19:35 Cannula Intake and Output 07/30/18 07/30/18 07/31/18 1515:00 23:00 07:00 IntakeIntake Total 480 ml 780 ml 580 ml BalanceBalance 480 ml 780 ml 580 ml Constitutional: well developed Head: normocephalic, atraumatic Neck: supple Respiratory: clear to auscultation Cardiovascular: regular rate and rhythm Gastrointestinal: soft, non-tender Extremities: normal pulses Results Results 24hrs Laboratory Tests Test 07/31/18 04:46 White Blood Count 5.5 # Red Blood Count 2.94 L Hemoglobin 7.8 L Hematocrit 25.2 L Mean Corpuscular Volume 85.7 Mean Corpuscular Hemoglobin 26.5 L Mean Corpuscular Hemoglobin Concent 31.0 L Red Cell Distribution Width 17.2 H Platelet Count 135 L Mean Platelet Volume 10.2 Immature Granulocytes % 2.300 H Neutrophils % Segmented Neutrophils % (Manual) 36 L Lymphocytes % Lymphocytes % (Manual) 52 H Monocytes % Monocytes % (Manual) 7 Eosinophils % Eosinophils % (Manual) 3 Basophils % Metamyelocytes % (manual) 2 H Nucleated Red Blood Cells % 1 H Immature Granulocytes # 0.130 H Neutrophils # Lymphocytes (Manual) 2.8 Lymphocytes # Monocytes # Monocytes # (Manual) 0.3 Eosinophils # Basophils # Metamyelocytes # 0.1 H Nucleated Red Blood Cells # Platelet Estimate DECREASED Polychromasia 1+ Poikilocytosis 1+ Anisocytosis 2+ Ovalocytes 1+ Medications Medication Current Medications Morphine Sulfate (morphine) 2 mg Q4H PRN IV SEVERE PAIN LEVEL 7-10 Last administered on 07/28/18at 02:40; Admin Dose 2 MG; Start 07/19/18 at 13:30 Acetaminophen (Tylenol Tab) 650 mg Q6H PRN PO MILD PAIN LEVEL 1-3 Last administered on 07/30/18at 20:47; Admin Dose 650 MG; Start 07/19/18 at 13:30 Cholecalciferol (Vitamin D) 400 units DAILY PO Last administered on 07/31/18at 09:13; Admin Dose 400 UNITS; Start 07/20/18 at 09:00 Divalproex Sodium (Depakote Er) 250 mg BID PO Last administered on 07/31/18at 09:13; Admin Dose 250 MG; Start 07/19/18 at 21:00 Donepezil HCl (Aricept) 10 mg DAILY PO Last administered on 07/31/18 09:13; Admin Dose 10 MG; Start 07/20/18 at 09:00 Dutasteride (Avodart) 0.5 mg DAILY PO Last administered on 07/31/18 09:13; Admin Dose 0.5 MG; Start 07/20/18 at 09:00 Escitalopram Oxalate (Lexapro) 5 mg DAILY PO Last administered on 07/31/18 09:13; Admin Dose 5 MG; Start 07/20/18 at 09:00 Ferrous Sulfate (Ferrous Sulfate (Ec)) 325 mg DAILY PO Last administered on 07/31/18 09:13; Admin Dose 325 MG; Start 07/20/18 at 09:00 Hydrocortisone (Hydrocortisone 0.5% Cr) 1 applic QHS PRN TOP ITCHING; Start 07/19/18 at 13:30 Memantine (Namenda) 10 mg DAILY PO Last administered on 07/31/18 09:13; Admin Dose 10 MG; Start 07/20/18 at 09:00 Pantoprazole (Protonix Tab) 40 mg DAILY@0600 PO Last administered on 07/31/18 05:26; Admin Dose 40 MG; Start 07/20/18 at 06:00 Tamsulosin HCl (Flomax) 0.4 mg HS PO Last administered on 07/30/18 20:48; Admin Dose 0.4 MG; Start 07/19/18 at 21:00 Tramadol HCl (Ultram) 50 mg Q6H PRN PO PAIN 5-10/10 Last administered on 07/13 01:52; Admin Dose 50 MG; Start 07/19/18 at 13:30 Olanzapine (Zyprexa) 2.5 mg TID PO Last administered on 07/31/18 12:37; Admin Dose 2.5 MG; Start 07/19/18 at 22:00 Docusate Sodium (Colace) 100 mg BID PRN PO CONSTIPATION Last administered on 07/30/18 20:47; Admin Dose 100 MG; Start 07/23/18 at 08:30 Benazepril HCl (Lotensin) 10 mg DAILY PO ; Start 07/31/18 at 09:00 Carvedilol (Coreg) 3.125 mg BID PO ; Start 07/30/18 at 21:00 GURJIT ANTUNEZ Jul 31, 2018 12:46
--- NOTE | 2018-07-31 13:12 | PN ---
Date/Time of Note Date/Time of Note DATE: 07/31/18 TIME: 13:11 Assessment/Plan Lines/Catheters IV Catheter Type (from [facility]): Peripheral IV Sarmiento in Place (from [facility]): No Assessment/Plan Chief Complaint/Hosp Course Patient is status post transurethral resection of prostate. The pathology report showed 70 g of benign prostatic tissue. At the present he has no Sarmiento catheter and he is voiding well and the urine is yellow clear. Therefore he may be discharged and I will sign off. Subjective 24 Hr Interval Summary The patient is comfortable and denies having any pain Exam/Review of Systems Vital Signs Vitals Vital Signs Date Temp Pulse Resp B/P (MAP) Pulse Ox O2 O2 Flow FiO2 Time Delivery Rate 07/31/18 98.3 94 18 105/60 94 08:25 (75) 07/31/18 3.0 01:24 07/30/18 Nasal 19:35 Cannula Intake and Output 07/30/18 07/30/18 07/31/18 1515:00 23:00 07:00 IntakeIntake Total 480 ml 780 ml 580 ml BalanceBalance 480 ml 780 ml 580 ml Exam Free Text/Dictation Patient is voiding well and the urine is clear yellow. There is no longer bleeding. Results Result Diagram: 07/31/18 0446 07/29/18 0459 SUKHWINDER SIFUENTES MD Jul 31, 2018 13:12
[2018-07-31 15:02] VITALS: BP 108/66; PULSE 92; RESP 18
--- NOTE | 2018-07-31 15:44 | CONS ---
Consult Date/Type/Reason Admit Date/Time Jul 21, 2018 at 08:05 Initial Consult Date 07/19/18 Type of Consultation: Urology Requesting Provider: MARTA MCGUIRE MD Date/Time of Note DATE: 07/31/18 TIME: 15:42 Subjective No acute events - pt comfortable - no CP - recovering well post op. ROS: No fever, no chills, no nausea, no vomiting, no diarrhea/constipation - improved hematuria No recent weight changes No chest pain, no PND, no orthopnea No dizziness, blurred vision No thirst, no heat or cold intolerance Objective Vitals Vital Signs Date Temp Pulse Resp B/P (MAP) Pulse Ox O2 O2 Flow FiO2 Time Delivery Rate 07/31/18 98.3 94 18 105/60 94 08:25 (75) 07/31/18 3.0 01:24 07/30/18 Nasal 19:35 Cannula Intake and Output 07/30/18 07/30/18 07/31/18 1515:00 23:00 07:00 IntakeIntake Total 480 ml 780 ml 580 ml BalanceBalance 480 ml 780 ml 580 ml Exam General: WN/WD/NAD, AOx 1-2 HEENT: Unicetric/atraumatic/EOMI (follow commands) NECK: JVD elevated, no thyromegaly Lymph: no lymphadenopathy HEART: regular with no S3, II/ systolic murmur at apex LUNGS: Coarse sounds ABD: soft, NT, ND, +BS : Intact Neuro: non focal SKIN: chronic changes EXT: trace edema Results/Medications Result Diagram: 07/31/18 0446 07/29/18 0459 Results 24 hrs Laboratory Tests Test 07/31/18 04:46 White Blood Count 5.5 # Red Blood Count 2.94 L Hemoglobin 7.8 L Hematocrit 25.2 L Mean Corpuscular Volume 85.7 Mean Corpuscular Hemoglobin 26.5 L Mean Corpuscular Hemoglobin Concent 31.0 L Red Cell Distribution Width 17.2 H Platelet Count 135 L Mean Platelet Volume 10.2 Immature Granulocytes % 2.300 H Neutrophils % Segmented Neutrophils % (Manual) 36 L Lymphocytes % Lymphocytes % (Manual) 52 H Monocytes % Monocytes % (Manual) 7 Eosinophils % Eosinophils % (Manual) 3 Basophils % Metamyelocytes % (manual) 2 H Nucleated Red Blood Cells % 1 H Immature Granulocytes # 0.130 H Neutrophils # Lymphocytes (Manual) 2.8 Lymphocytes # Monocytes # Monocytes # (Manual) 0.3 Eosinophils # Basophils # Metamyelocytes # 0.1 H Nucleated Red Blood Cells # Platelet Estimate DECREASED Polychromasia 1+ Poikilocytosis 1+ Anisocytosis 2+ Ovalocytes 1+ Home Meds Reported Medications Acetaminophen* (Tylenol*) 325 Mg Tablet, 650 MG PO Q6H PRN for MILD PAIN LEVEL 1-3, TAB AND FEVER>101F 07/19/18 Hydrocortisone* Topical (Hydrocortisone* Topical) 0.5%-28.35 Gm Cream..g., 1 APPLIC TOP QHS PRN for ITCHING, TUB 07/19/18 Divalproex Sodium* (Depakote ER*) 250 Mg Tabsr, 250 MG PO BID, #30 TAB.SA 07/19/18 Tramadol Hcl* (Ultram*) 50 Mg Tablet, 50 MG PO Q6H PRN for PAIN 5-1010, TAB 07/19/18 Pantoprazole* (Protonix*) 40 Mg Tablet.dr, 40 MG PO DAILY, TAB 07/01/18 Ferrous Sulfate* (Ferrous Sulfate*) 325 Mg Tabec, 325 MG PO DAILY, TAB 07/01/18 Simvastatin* (Zocor*) 40 Mg Tablet, 40 MG PO QHS, #30 TAB 05/13/18 Risperidone* (Risperdal*) 1 Mg Tablet, 1 MG PO DAILY, TAB 05/13/18 Memantine* (Namenda*) 10 Mg Tablet, 10 MG PO DAILY, #30 TAB 05/13/18 Benazepril Hcl* (Lotensin*) 40 Mg Tablet, 40 MG PO DAILY, #30 TAB HOLD FOR SBP<110 OR MN<60 05/13/18 Escitalopram Oxalate* (Lexapro*) 5 Mg Tablet, 5 MG PO DAILY, #30 TAB 05/13/18 Tamsulosin Hcl* (Flomax*) 0.4 Mg Cap.er.24h, 0.4 MG PO HS, CAP 05/13/18 Carvedilol* (Coreg*) 6.25 Mg Tablet, 6.25 MG PO BID, #60 TAB HOLD FOR SBP<110 OR MN<60 05/13/18 Cholecalciferol* (Vitamin D*) 400 Unit Tablet, 400 UNIT PO DAILY, TAB 05/13/18 Dutasteride* (Avodart*) 0.5 Mg Capsule, 0.5 MG PO DAILY, CAP 05/13/18 Donepezil* (Aricept*) 10 Mg Tablet, 10 MG PO DAILY, TAB 05/13/18 Medications Current Medications Morphine Sulfate (morphine) 2 mg Q4H PRN IV SEVERE PAIN LEVEL 7-10 Last administered on 07/28/18 02:40; Admin Dose 2 MG; Start 07/19/18 at 13:30 Acetaminophen (Tylenol Tab) 650 mg Q6H PRN PO MILD PAIN LEVEL 1-3 Last administered on 07/30/18 20:47; Admin Dose 650 MG; Start 07/19/18 at 13:30 Cholecalciferol (Vitamin D) 400 units DAILY PO Last administered on 07/31/18 09:13; Admin Dose 400 UNITS; Start 07/20/18 at 09:00 Divalproex Sodium (Depakote Er) 250 mg BID PO Last administered on 07/31/18 09:13; Admin Dose 250 MG; Start 07/19/18 at 21:00 Donepezil HCl (Aricept) 10 mg DAILY PO Last administered on 07/31/18 09:13; Admin Dose 10 MG; Start 07/20/18 at 09:00 Dutasteride (Avodart) 0.5 mg DAILY PO Last administered on 07/31/18 09:13; Admin Dose 0.5 MG; Start 07/20/18 at 09:00 Escitalopram Oxalate (Lexapro) 5 mg DAILY PO Last administered on 07/31/18 09:13; Admin Dose 5 MG; Start 07/20/18 at 09:00 Ferrous Sulfate (Ferrous Sulfate (Ec)) 325 mg DAILY PO Last administered on 07/31/18 09:13; Admin Dose 325 MG; Start 07/20/18 at 09:00 Hydrocortisone (Hydrocortisone 0.5% Cr) 1 applic QHS PRN TOP ITCHING; Start 07/19/18 at 13:30 Memantine (Namenda) 10 mg DAILY PO Last administered on 07/31/18 09:13; Admin Dose 10 MG; Start 07/20/18 at 09:00 Pantoprazole (Protonix Tab) 40 mg DAILY@0600 PO Last administered on 07/31/18at 05:26; Admin Dose 40 MG; Start 07/20/18 at 06:00 Tamsulosin HCl (Flomax) 0.4 mg HS PO Last administered on 07/30/18at 20:48; Admin Dose 0.4 MG; Start 07/19/18 at 21:00 Tramadol HCl (Ultram) 50 mg Q6H PRN PO PAIN 5-10/10 Last administered on 07/31/18 01:52; Admin Dose 50 MG; Start 07/19/18 at 13:30 Olanzapine (Zyprexa) 2.5 mg TID PO Last administered on 07/31/18at 12:37; Admin Dose 2.5 MG; Start 07/19/18 at 22:00 Docusate Sodium (Colace) 100 mg BID PRN PO CONSTIPATION Last administered on 07/30/18 20:47; Admin Dose 100 MG; Start 07/23/18 at 08:30 Benazepril HCl (Lotensin) 10 mg DAILY PO ; Start 07/31/18 at 09:00 Carvedilol (Coreg) 3.125 mg BID PO ; Start 07/30/18 at 21:00 Assessment/Plan Hospital Course (Demo Recall) 1. Preoperative evaluation prior to a transurethral prostatectomy. Now post-op s/p TURP - con't post op car - off tele now. 2. Hematuria, recurrent- post TURP - urology follows - H/h down to 7.8. 3. Hypertension-now with borderline hypotension? sepsis - treated. 4. Dementia. 5. Anemia - primary team follows. 6. EKG with right bundle branch block pattern, negative troponins x3. NL EF by echo 06/01 VANESSA MORIN MD Jul 31, 2018 15:44
--- NOTE | 2018-07-31 17:26 | CONS ---
Assessment/Plan Assessment/Plan Assessment/Plan (Daily) This 82 years old male was admitted for hematuria. hematology /oncology is consulted for Thrombocytopenia. - Thrombocytopenia platelets 135 - NO HEMATURIA reported - Anemia of acute blood loss, continue to monitor H&H, transfuse as needed.Hgb 7.8 today - Hypertension to HYPOTENSION - per cardio - Enlarged prostate and Recurrent gross hematuria. s/p TURP on 07/21/2018. - Dr. Dolan follows in urology consultation. - Benign prostatic hypertrophy. - pe PMD - Dementia with behavioral disturbance. Continue Aricept, Namenda, Zyprexa. -per PMD - Depression. Continue Lexapro. - PER pmd - Former smoker - Reinforce smoking cessation Further recommendations based on clinical course. Plan of care discussed with Consultation Date/Type/Reason Admit Date/Time Jul 21, 2018 at 08:05 Type of Consult ONCOLOGY Reason for Consultation THROMBOCYTOPENIA Date/Time of Note DATE: 07/31/18 TIME: 14:07 Hx of Present Illness Hx of Present Illness The patient is 82-year-old male; a SNF resident, known to me from previous admission with an extensive medical history of hypertension, osteoporosis, BPH, dementia with behavioral disturbance. Patient was recently admitted for hematuria and patient cytology was negative for malignancy. Hematuria resolved and Sarmiento was discontinued patient was able to void and was [facility] to [facility]. Patient was admitted with gross hematuria and noted have thrombocytopenia. Hem/Onc is consulted for thrombocytopenia. ROS 12 point review of system is negative except for what mentioned in HPI PMH/Family/Social Past Medical History Medications Current Medications Ondansetron HCl (Zofran Inj) 4 mg BRIDGE ORDER PRN IV NAUSEA/VOMITING; Start 07/19/18 at 10:00; Stop 07/20/18 at 09:59 Acetaminophen (Tylenol Tab) 650 mg ER BRIDGE PRN PO .MILD PAIN 1-3 OR TEMP; Start 07/19/18 at 10:00; Stop 07/20/18 at 09:59 Coded Allergies: No Known Allergy (Unverified , 07/19/18) Past Surgical History Past Surgical Hx: other (History of prostate surgery for BPH) Family History Significant Family History: no pertinent family hx Social History Patient is a resident of [facility] facility Alcohol Use: none Smoking Status: Former smoker Drug Use: none Constitutional: requiring O2 Eyes: no complaints ENT: no complaints Respiratory: no complaints Cardiovascular: no complaints Gastrointestinal: no complaints Genitourinary: no complaints Musculoskeletal: no complaints Skin: no complaints Neurologic: no complaints Past Medical History ROS 12 point review of system is negative except for what mentioned in HPI PMH/Family/Social Past Medical History Medications Current Medications Ondansetron HCl (Zofran Inj) 4 mg BRIDGE ORDER PRN IV NAUSEA/VOMITING; Start 07/19/18 at 10:00; Stop 07/20/18 at 09:59 Acetaminophen (Tylenol Tab) 650 mg ER BRIDGE PRN PO .MILD PAIN 1-3 OR TEMP; St art 07/19/18 at 10:00; Stop 07/20/18 at 09:59 Coded Allergies: No Known Allergy (Unverified , 07/19/18) Past Surgical History Past Surgical Hx: other (History of prostate surgery for BPH) Family History Significant Family History: no pertinent family hx Social History Patient is a resident of [facility] facility Alcohol Use: none Smoking Status: Former smoker Drug Use: none Medical History: hypertension, other (Dementia and behavioral problems. Dyslipidemia) Home Meds Reported Medications Acetaminophen* (Tylenol*) 325 Mg Tablet, 650 MG PO Q6H PRN for MILD PAIN LEVEL 1-3, TAB AND FEVER>101F 07/19/18 Hydrocortisone* Topical (Hydrocortisone* Topical) 0.5%-28.35 Gm Cream..g., 1 APPLIC TOP QHS PRN for ITCHING, TUB 07/19/18 Divalproex Sodium* (Depakote ER*) 250 Mg Tabsr, 250 MG PO BID, #30 TAB.SA 07/19/18 Tramadol Hcl* (Ultram*) 50 Mg Tablet, 50 MG PO Q6H PRN for PAIN 5-01/20, TAB 07/19/18 Pantoprazole* (Protonix*) 40 Mg Tablet.dr, 40 MG PO DAILY, TAB 07/01/18 Ferrous Sulfate* (Ferrous Sulfate*) 325 Mg Tabec, 325 MG PO DAILY, TAB 07/01/18 Simvastatin* (Zocor*) 40 Mg Tablet, 40 MG PO QHS, #30 TAB 05/13/18 Risperidone* (Risperdal*) 1 Mg Tablet, 1 MG PO DAILY, TAB 05/13/18 Memantine* (Namenda*) 10 Mg Tablet, 10 MG PO DAILY, #30 TAB 05/13/18 Benazepril Hcl* (Lotensin*) 40 Mg Tablet, 40 MG PO DAILY, #30 TAB HOLD FOR SBP<110 OR OH<60 05/13/18 Escitalopram Oxalate* (Lexapro*) 5 Mg Tablet, 5 MG PO DAILY, #30 TAB 05/13/18 Tamsulosin Hcl* (Flomax*) 0.4 Mg Cap.er.24h, 0.4 MG PO HS, CAP 05/13/18 Carvedilol* (Coreg*) 6.25 Mg Tablet, 6.25 MG PO BID, #60 TAB HOLD FOR SBP<110 OR OH<60 05/13/18 Cholecalciferol* (Vitamin D*) 400 Unit Tablet, 400 UNIT PO DAILY, TAB 05/13/18 Dutasteride* (Avodart*) 0.5 Mg Capsule, 0.5 MG PO DAILY, CAP 05/13/18 Donepezil* (Aricept*) 10 Mg Tablet, 10 MG PO DAILY, TAB 05/13/18 Medications Current Medications Morphine Sulfate (morphine) 2 mg Q4H PRN IV SEVERE PAIN LEVEL 7-10 Last administered on 07/28/18at 02:40; Admin Dose 2 MG; Start 07/19/18 at 13:30 Acetaminophen (Tylenol Tab) 650 mg Q6H PRN PO MILD PAIN LEVEL 1-3 Last administered on 07/30/18at 20:47; Admin Dose 650 MG; Start 07/19/18 at 13:30 Cholecalciferol (Vitamin D) 400 units DAILY PO Last administered on 07/31/18at 09:13; Admin Dose 400 UNITS; Start 07/20/18 at 09:00 Divalproex Sodium (Depakote Er) 250 mg BID PO Last administered on 07/31/18at 09:13; Admin Dose 250 MG; Start 07/19/18 at 21:00 Donepezil HCl (Aricept) 10 mg DAILY PO Last administered on 07/31/18at 09:13; Admin Dose 10 MG; Start 07/20/18 at 09:00 Dutasteride (Avodart) 0.5 mg DAILY PO Last administered on 07/31/18at 09:13; Admin Dose 0.5 MG; Start 07/20/18 at 09:00 Escitalopram Oxalate (Lexapro) 5 mg DAILY PO Last administered on 07/31/18 09:13; Admin Dose 5 MG; Start 07/20/18 at 09:00 Ferrous Sulfate (Ferrous Sulfate (Ec)) 325 mg DAILY PO Last administered on 07/31/18 09:13; Admin Dose 325 MG; Start 07/20/18 at 09:00 Hydrocortisone (Hydrocortisone 0.5% Cr) 1 applic QHS PRN TOP ITCHING; Start 07/19/18 at 13:30 Memantine (Namenda) 10 mg DAILY PO Last administered on 07/31/18 09:13; Admin Dose 10 MG; Start 07/20/18 at 09:00 Pantoprazole (Protonix Tab) 40 mg DAILY@0600 PO Last administered on 07/31/18 05:26; Admin Dose 40 MG; Start 07/20/18 at 06:00 Tamsulosin HCl (Flomax) 0.4 mg HS PO Last administered on 07/30/18 20:48; Admin Dose 0.4 MG; Start 07/19/18 at 21:00 Tramadol HCl (Ultram) 50 mg Q6H PRN PO PAIN 5-01/20 Last administered on 07/31/18 01:52; Admin Dose 50 MG; Start 07/19/18 at 13:30 Olanzapine (Zyprexa) 2.5 mg TID PO Last administered on 07/31/18 12:37; Admin Dose 2.5 MG; Start 07/19/18 at 22:00 Docusate Sodium (Colace) 100 mg BID PRN PO CONSTIPATION Last administered on 07/30/18 20:47; Admin Dose 100 MG; Start 07/23/18 at 08:30 Benazepril HCl (Lotensin) 10 mg DAILY PO ; Start 07/31/18 at 09:00 Carvedilol (Coreg) 3.125 mg BID PO ; Start 07/30/18 at 21:00 Allergies: Coded Allergies: No Known Allergy (Unverified , 07/19/18) Past Surgical History Past Surgical Hx: other (History of prostate surgery for BPH) Social History Alcohol Use: none Smoking Status: Former smoker Drug Use: none Exam/Review of Systems Exam Vitals Vital Signs Date Temp Pulse Resp B/P (MAP) Pulse Ox O2 O2 Flow FiO2 Time Delivery Rate 07/31/18 98.3 94 18 105/60 94 08:25 (75) 07/31/18 3.0 01:24 07/30/18 Nasal 19:35 Cannula Intake and Output 07/30/18 07/30/18 07/31/18 1515:00 23:00 07:00 IntakeIntake Total 480 ml 780 ml 580 ml BalanceBalance 480 ml 780 ml 580 ml Constitutional: alert, well developed Psych: nl mood/affect Head: normocephalic Eyes: nl lids, nl sclera ENMT: nl external ears & nose Neck: non-tender Respiratory: clear to auscultation Cardiovascular: nl pulses, other (s1s2) Gastrointestinal: soft, non-tender Musculoskeletal: muscle weakness Extremities: normal pulses Neurological: nl speech, other (alert/response) Skin: nl turgor Lymph: nontender Results Result Diagram: 07/31/18 0446 07/29/18 0459 Results 24hrs Laboratory Tests Test 07/31/18 04:46 White Blood Count 5.5 # Red Blood Count 2.94 L Hemoglobin 7.8 L Hematocrit 25.2 L Mean Corpuscular Volume 85.7 Mean Corpuscular Hemoglobin 26.5 L Mean Corpuscular Hemoglobin Concent 31.0 L Red Cell Distribution Width 17.2 H Platelet Count 135 L Mean Platelet Volume 10.2 Immature Granulocytes % 2.300 H Neutrophils % Segmented Neutrophils % (Manual) 36 L Lymphocytes % Lymphocytes % (Manual) 52 H Monocytes % Monocytes % (Manual) 7 Eosinophils % Eosinophils % (Manual) 3 Basophils % Metamyelocytes % (manual) 2 H Nucleated Red Blood Cells % 1 H Immature Granulocytes # 0.130 H Neutrophils # Lymphocytes (Manual) 2.8 Lymphocytes # Monocytes # Monocytes # (Manual) 0.3 Eosinophils # Basophils # Metamyelocytes # 0.1 H Nucleated Red Blood Cells # Platelet Estimate DECREASED Polychromasia 1+ Poikilocytosis 1+ Anisocytosis 2+ Ovalocytes 1+ Medications Medication Current Medications Morphine Sulfate (morphine) 2 mg Q4H PRN IV SEVERE PAIN LEVEL 7-10 Last administered on 07/28/18at 02:40; Admin Dose 2 MG; Start 07/19/18 at 13:30 Acetaminophen (Tylenol Tab) 650 mg Q6H PRN PO MILD PAIN LEVEL 1-3 Last administered on 07/30/18at 20:47; Admin Dose 650 MG; Start 07/19/18 at 13:30 Cholecalciferol (Vitamin D) 400 units DAILY PO Last administered on 07/31/18 09:13; Admin Dose 400 UNITS; Start 07/20/18 at 09:00 Divalproex Sodium (Depakote Er) 250 mg BID PO Last administered on 07/31/18 09:13; Admin Dose 250 MG; Start 07/19/18 at 21:00 Donepezil HCl (Aricept) 10 mg DAILY PO Last administered on 07/31/18 09:13; Admin Dose 10 MG; Start 07/20/18 at 09:00 Dutasteride (Avodart) 0.5 mg DAILY PO Last administered on 07/31/18 09:13; Admin Dose 0.5 MG; Start 07/20/18 at 09:00 Escitalopram Oxalate (Lexapro) 5 mg DAILY PO Last administered on 07/31/18 09:13; Admin Dose 5 MG; Start 07/20/18 at 09:00 Ferrous Sulfate (Ferrous Sulfate (Ec)) 325 mg DAILY PO Last administered on 07/31/18 09:13; Admin Dose 325 MG; Start 07/20/18 at 09:00 Hydrocortisone (Hydrocortisone 0.5% Cr) 1 applic QHS PRN TOP ITCHING; Start 07/19/18 at 13:30 Memantine (Namenda) 10 mg DAILY PO Last administered on 07/31/18 09:13; Admin Dose 10 MG; Start 07/20/18 at 09:00 Pantoprazole (Protonix Tab) 40 mg DAILY@0600 PO Last administered on 07/31/18 05:26; Admin Dose 40 MG; Start 07/20/18 at 06:00 Tamsulosin HCl (Flomax) 0.4 mg HS PO Last administered on 07/30/18 20:48; Admin Dose 0.4 MG; Start 07/19/18 at 21:00 Tramadol HCl (Ultram) 50 mg Q6H PRN PO PAIN 5-1010 Last administered on 07/31/18 01:52; Admin Dose 50 MG; Start 07/19/18 at 13:30 Olanzapine (Zyprexa) 2.5 mg TID PO Last administered on 07/31/18 12:37; Admin Dose 2.5 MG; Start 07/19/18 at 22:00 Docusate Sodium (Colace) 100 mg BID PRN PO CONSTIPATION Last administered on 07/30/18at 20:47; Admin Dose 100 MG; Start 07/23/18 at 08:30 Benazepril HCl (Lotensin) 10 mg DAILY PO ; Start 07/31/18 at 09:00 Carvedilol (Coreg) 3.125 mg BID PO ; Start 07/30/18 at 21:00 FROYLAN ALVAREZ Jul 31, 2018 14:18
[2018-07-31 20:00] VITALS: BP 119/59; PULSE 100; RESP 18
[2018-07-31] MEDS: TAMSULOSIN (SR) 0.4 MG CAP PO SCH (21:30)
[2018-08-01 01:37] VITALS: BP 105/58; PULSE 95; RESP 20
[2018-08-01] MEDS: PANTOPRAZOLE (EC) 40 MG TAB PO SCH (06:26)
[2018-08-01 08:01] VITALS: BP 133/60; PULSE 89; RESP 18
[2018-08-01] MEDS: ESCITALOPRAM 10 MG TAB PO SCH (08:19)
[2018-08-01] MEDS: DONEPEZIL 10 MG TAB PO SCH (08:21)
[2018-08-01] MEDS: FERROUS SULFATE (EC) 325 MG TAB PO SCH (08:21)
[2018-08-01] MEDS: BENAZEPRIL 10 MG TAB PO SCH (08:21)
[2018-08-01] MEDS: DIVALPROEX (ER) 250 MG TAB PO SCH ×2 (08:21→20:44)
[2018-08-01] MEDS: DUTASTERIDE 0.5 MG CAP PO SCH (08:22)
[2018-08-01] MEDS: OLANZAPINE 2.5 MG TAB PO SCH ×3 (08:22→20:44)
[2018-08-01] MEDS: MEMANTINE 10 MG TAB PO SCH (08:22)
[2018-08-01] MEDS: CHOLECALCIFEROL 400 UNITS TAB PO SCH (08:22)
--- NOTE | 2018-08-01 10:12 | CONS ---
Assessment/Plan Assessment/Plan Hospital Course (Demo Recall) 82 years old male was admitted for hematuria. hematology consulted for Thrombocytopenia # Thrombocytopenia -this was likely related to his hematuria -now that hematuria has resolved, platelets are now within normal range. Now > 170 -if platelets drop again, will preform full workup to r/o DIC or TTP #BPH and Recurrent gross hematuria. -s/p TURP on 07/21/2018. -hematuria has resolved -Dr. Dolan is following in urology consultation. #Dementia with behavioral disturbance -Continue Aricept, Namenda, Zyprexa. #Depression. Continue Lexapro. Further recommendations based on clinical course. Consultation Date/Type/Reason Admit Date/Time Jul 21, 2018 at 08:05 Initial Consult Date 07/19/18 Type of Consult hematology Reason for Consultation thrombocytopenia Requesting Provider: MARTA MCGUIRE MD Date/Time of Note DATE: 08/01/18 TIME: 10:08 24 HR Interval Summary Free Text/Dictation no acute overnight events Exam/Review of Systems Exam Vitals Vital Signs Date Temp Pulse Resp B/P (MAP) Pulse Ox O2 O2 Flow FiO2 Time Delivery Rate 08/01/18 98.0 89 18 133/60 96 Room Air 08:01 (84) 07/31/18 3.0 18:02 Intake and Output 07/31/18 07/31/18 08/01/18 1515:00 23:00 07:00 IntakeIntake Total 480 ml 360 ml BalanceBalance 480 ml 360 ml Results Result Diagram: 08/01/18 0503 08/01/18 0503 Results 24hrs Laboratory Tests Test 08/01/18 05:03 White Blood Count 6.1 Red Blood Count 3.04 L Hemoglobin 8.2 L Hematocrit 26.5 L Mean Corpuscular Volume 87.2 Mean Corpuscular Hemoglobin 27.0 L Mean Corpuscular Hemoglobin Concent 30.9 L Red Cell Distribution Width 17.2 H Platelet Count 173 # Mean Platelet Volume 9.9 Immature Granulocytes % 4.400 H Neutrophils % 35.1 L Lymphocytes % 42.2 Monocytes % 16.5 H Eosinophils % 1.5 Basophils % 0.3 Nucleated Red Blood Cells % 0.0 Immature Granulocytes # 0.270 H Neutrophils # 2.2 Lymphocytes # 2.6 Monocytes # 1.0 H Eosinophils # 0.1 Basophils # 0.0 Nucleated Red Blood Cells # 0.0 Sodium Level 141 Potassium Level 4.2 Chloride Level 102 Carbon Dioxide Level 30 Anion Gap 9 Blood Urea Nitrogen 7 Creatinine 0.68 Est Glomerular Filtrat Rate mL/min Glucose Level 99 Calcium Level 8.5 Medications Medication Current Medications Morphine Sulfate (morphine) 2 mg Q4H PRN IV SEVERE PAIN LEVEL 7-10 Last administered on 07/28/18 02:40; Admin Dose 2 MG; Start 07/19/18 at 13:30 Acetaminophen (Tylenol Tab) 650 mg Q6H PRN PO MILD PAIN LEVEL 1-3 Last administered on 07/30/18 20:47; Admin Dose 650 MG; Start 07/19/18 at 13:30 Cholecalciferol (Vitamin D) 400 units DAILY PO Last administered on 08/01/18 08:22; Admin Dose 400 UNITS; Start 07/20/18 at 09:00 Divalproex Sodium (Depakote Er) 250 mg BID PO Last administered on 08/01/18 08:21; Admin Dose 250 MG; Start 07/19/18 at 21:00 Donepezil HCl (Aricept) 10 mg DAILY PO Last administered on 08/01/18 08:21; Admin Dose 10 MG; Start 07/20/18 at 09:00 Dutasteride (Avodart) 0.5 mg DAILY PO Last administered on 08/01/18 08:22; Admin Dose 0.5 MG; Start 07/20/18 at 09:00 Escitalopram Oxalate (Lexapro) 5 mg DAILY PO Last administered on 08/01/18 08: 19; Admin Dose 5 MG; Start 07/20/18 at 09:00 Ferrous Sulfate (Ferrous Sulfate (Ec)) 325 mg DAILY PO Last administered on 08/01/18 08:21; Admin Dose 325 MG; Start 07/20/18 at 09:00 Hydrocortisone (Hydrocortisone 0.5% Cr) 1 applic QHS PRN TOP ITCHING; Start 07/19/18 at 13:30 Memantine (Namenda) 10 mg DAILY PO Last administered on 08/01/18 08:22; Admin Dose 10 MG; Start 07/20/18 at 09:00 Pantoprazole (Protonix Tab) 40 mg DAILY@0600 PO Last administered on 08/01/18 06:26; Admin Dose 40 MG; Start 07/20/18 at 06:00 Tamsulosin HCl (Flomax) 0.4 mg HS PO Last administered on 07/31/18 21:30; Admin Dose 0.4 MG; Start 07/19/18 at 21:00 Tramadol HCl (Ultram) 50 mg Q6H PRN PO PAIN 5-1010 Last administered on 07/31/18at 01:52; Admin Dose 50 MG; Start 07/19/18 at 13:30 Olanzapine (Zyprexa) 2.5 mg TID PO Last administered on 08/01/18 08:22; Admin Dose 2.5 MG; Start 07/19/18 at 22:00 Docusate Sodium (Colace) 100 mg BID PRN PO CONSTIPATION Last administered on 07/30/18at 20:47; Admin Dose 100 MG; Start 07/23/18 at 08:30 Benazepril HCl (Lotensin) 10 mg DAILY PO Last administered on 08/01/18 08:21; Admin Dose 10 MG; Start 07/31/18 at 09:00 Carvedilol (Coreg) 3.125 mg BID PO Last administered on 08/01/18 08:19; Admin Dose 3.125 MG; Start 07/30/18 at 21:00 RAMILA YOUNG M.D. Aug 01, 2018 10:12
--- NOTE | 2018-08-01 11:53 | CONS ---
Consult Date/Type/Reason Admit Date/Time Jul 21, 2018 at 08:05 Initial Consult Date 07/19/18 Type of Consultation: Urology Requesting Provider: MARTA MCGUIRE MD Date/Time of Note DATE: 08/01/18 TIME: 11:51 Subjective NO acute events - pt stable - no CP- in good fluid staus now. ROS: No fever, no chills, no nausea, no vomiting, no diarrhea/constipation No recent weight changes No chest pain, no PND, no orthopnea - chronic SOB No dizziness, blurred vision No thirst, no heat or cold intolerance Objective Vitals Vital Signs Date Temp Pulse Resp B/P (MAP) Pulse Ox O2 O2 Flow FiO2 Time Delivery Rate 08/01/18 98.0 89 18 133/60 96 Room Air 08:01 (84) 07/31/18 3.0 18:02 Intake and Output 07/31/18 07/31/18 08/01/18 1414:59 22:59 06:59 IntakeIntake Total 480 ml 360 ml BalanceBalance 480 ml 360 ml Exam General: WN/WD/NAD, AOx 1-2 HEENT: Unicetric/atraumatic/EOMI (follow commands) NECK: JVD elevated, no thyromegaly Lymph: no lymphadenopathy HEART: regular with no S3, II/ systolic murmur at apex LUNGS: Coarse sounds ABD: soft, NT, ND, +BS : Intact Neuro: non focal SKIN: chronic changes EXT: trace edema Results/Medications Result Diagram: 08/01/18 0503 08/01/18 0503 Results 24 hrs Laboratory Tests Test 08/01/18 05:03 White Blood Count 6.1 Red Blood Count 3.04 L Hemoglobin 8.2 L Hematocrit 26.5 L Mean Corpuscular Volume 87.2 Mean Corpuscular Hemoglobin 27.0 L Mean Corpuscular Hemoglobin Concent 30.9 L Red Cell Distribution Width 17.2 H Platelet Count 173 # Mean Platelet Volume 9.9 Immature Granulocytes % 4.400 H Neutrophils % 35.1 L Lymphocytes % 42.2 Monocytes % 16.5 H Eosinophils % 1.5 Basophils % 0.3 Nucleated Red Blood Cells % 0.0 Immature Granulocytes # 0.270 H Neutrophils # 2.2 Lymphocytes # 2.6 Monocytes # 1.0 H Eosinophils # 0.1 Basophils # 0.0 Nucleated Red Blood Cells # 0.0 Sodium Level 141 Potassium Level 4.2 Chloride Level 102 Carbon Dioxide Level 30 Anion Gap 9 Blood Urea Nitrogen 7 Creatinine 0.68 Est Glomerular Filtrat Rate mL/min Glucose Level 99 Calcium Level 8.5 Home Meds Reported Medications Acetaminophen* (Tylenol*) 325 Mg Tablet, 650 MG PO Q6H PRN for MILD PAIN LEVEL 1-3, TAB AND FEVER>101F 07/19/18 Hydrocortisone* Topical (Hydrocortisone* Topical) 0.5%-28.35 Gm Cream..g., 1 APPLIC TOP QHS PRN for ITCHING, TUB 07/19/18 Divalproex Sodium* (Depakote ER*) 250 Mg Tabsr, 250 MG PO BID, #30 TAB.SA 07/19/18 Tramadol Hcl* (Ultram*) 50 Mg Tablet, 50 MG PO Q6H PRN for PAIN 5-10, TAB 07/19/18 Pantoprazole* (Protonix*) 40 Mg Tablet.dr, 40 MG PO DAILY, TAB 07/01/18 Ferrous Sulfate* (Ferrous Sulfate*) 325 Mg Tabec, 325 MG PO DAILY, TAB 07/01/18 Simvastatin* (Zocor*) 40 Mg Tablet, 40 MG PO QHS, #30 TAB 05/13/18 Risperidone* (Risperdal*) 1 Mg Tablet, 1 MG PO DAILY, TAB 05/13/18 Memantine* (Namenda*) 10 Mg Tablet, 10 MG PO DAILY, #30 TAB 05/13/18 Benazepril Hcl* (Lotensin*) 40 Mg Tablet, 40 MG PO DAILY, #30 TAB HOLD FOR SBP<110 OR HI<60 05/13/18 Escitalopram Oxalate* (Lexapro*) 5 Mg Tablet, 5 MG PO DAILY, #30 TAB 05/13/18 Tamsulosin Hcl* (Flomax*) 0.4 Mg Cap.er.24h, 0.4 MG PO HS, CAP 05/13/18 Carvedilol* (Coreg*) 6.25 Mg Tablet, 6.25 MG PO BID, #60 TAB HOLD FOR SBP<110 OR HI<60 05/13/18 Cholecalciferol* (Vitamin D*) 400 Unit Tablet, 400 UNIT PO DAILY, TAB 05/13/18 Dutasteride* (Avodart*) 0.5 Mg Capsule, 0.5 MG PO DAILY, CAP 05/13/18 Donepezil* (Aricept*) 10 Mg Tablet, 10 MG PO DAILY, TAB 05/13/18 Medications Current Medications Morphine Sulfate (morphine) 2 mg Q4H PRN IV SEVERE PAIN LEVEL 7-10 Last administered on 07/28/18 02:40; Admin Dose 2 MG; Start 07/19/18 at 13:30 Acetaminophen (Tylenol Tab) 650 mg Q6H PRN PO MILD PAIN LEVEL 1-3 Last administered on 07/30/18 20:47; Admin Dose 650 MG; Start 07/19/18 at 13:30 Cholecalciferol (Vitamin D) 400 units DAILY PO Last administered on 08/01/18 08:22; Admin Dose 400 UNITS; Start 07/20/18 at 09:00 Divalproex Sodium (Depakote Er) 250 mg BID PO Last administered on 08/01/18 08:21; Admin Dose 250 MG; Start 07/19/18 at 21:00 Donepezil HCl (Aricept) 10 mg DAILY PO Last administered on 08/01/18 08:21; Admin Dose 10 MG; Start 07/20/18 at 09:00 Dutasteride (Avodart) 0.5 mg DAILY PO Last administered on 08/01/18 08:22; A dmin Dose 0.5 MG; Start 07/20/18 at 09:00 Escitalopram Oxalate (Lexapro) 5 mg DAILY PO Last administered on 08/01/18 08:19; Admin Dose 5 MG; Start 07/20/18 at 09:00 Ferrous Sulfate (Ferrous Sulfate (Ec)) 325 mg DAILY PO Last administered on 08/01/18 08:21; Admin Dose 325 MG; Start 07/20/18 at 09:00 Hydrocortisone (Hydrocortisone 0.5% Cr) 1 applic QHS PRN TOP ITCHING; Start 07/19/18 at 13:30 Memantine (Namenda) 10 mg DAILY PO Last administered on 08/01/18 08:22; Admin Dose 10 MG; Start 07/20/18 at 09:00 Pantoprazole (Protonix Tab) 40 mg DAILY@0600 PO Last administered on 08/01/18at 06:26; Admin Dose 40 MG; Start 07/20/18 at 06:00 Tamsulosin HCl (Flomax) 0.4 mg HS PO Last administered on 07/31/18at 21:30; Admin Dose 0.4 MG; Start 07/19/18 at 21:00 Tramadol HCl (Ultram) 50 mg Q6H PRN PO PAIN 5-10/10 Last administered on 07/31/18at 01:52; Admin Dose 50 MG; Start 07/19/18 at 13:30 Olanzapine (Zyprexa) 2.5 mg TID PO Last administered on 08/01/18at 08:22; Admin Dose 2.5 MG; Start 07/19/18 at 22:00 Docusate Sodium (Colace) 100 mg BID PRN PO CONSTIPATION Last administered on 07/30/18 20:47; Admin Dose 100 MG; Start 07/23/18 at 08:30 Benazepril HCl (Lotensin) 10 mg DAILY PO Last administered on 08/01/18 08:21; Admin Dose 10 MG; Start 07/31/18 at 09:00 Carvedilol (Coreg) 3.125 mg BID PO Last administered on 08/01/18 08:19; Admin Dose 3.125 MG; Start 07/30/18 at 21:00 Assessment/Plan Hospital Course (Demo Recall) 1. Preoperative evaluation prior to a transurethral prostatectomy. Now post-op s/p TURP - con't post op car - off tele now. Stable overall. 2. Hematuria, recurrent- post TURP - urology follows - H/h down to 7.8 - Hg at 8.2 now - better. 3. Hypertension-now with borderline hypotension? sepsis - treated. 4. Dementia. 5. Anemia - primary team follows - improved. 6. EKG with right bundle branch block pattern, negative troponins x3. NL EF by echo 06/01 VANESSA MORIN MD Aug 01, 2018 11:53
--- NOTE | 2018-08-01 12:49 | PN ---
Date/Time of Note Date/Time of Note DATE: 08/01/18 TIME: 12:48 Assessment/Plan VTE Prophylaxis Risk score (from [facility] [place])>0 risk: 5 SCD applied (from [facility] [place]): Yes Pharmacological prophylaxis: LMWH Lines/Catheters IV Catheter Type (from [facility]): Saline Lock Urinary Cath still in place: No Assessment/Plan Hospital Course - HYPOTENSION - IVF - cardiac med adjusted per clinical esthetician - Enlarged prostate and Recurrent gross hematuria. s/p TURP on 07/21/2018. Dr. Dolan is following in urology consultation. - Anemia of acute blood loss, continue to monitor H&H, transfuse as needed. - Benign prostatic hypertrophy. Continue Flomax and dutasteride. - Preserved ejection fraction per recent echo - Hypertension. Continue Lotensin. - Dementia with behavioral disturbance. Continue Aricept, Namenda, Zyprexa. - Depression. Continue Lexapro. - Thrombocytopenia- oncology consult appreciated Result Diagram: 08/01/18 0503 08/01/18 0503 Results 24hrs Laboratory Tests Test 08/01/18 05:03 White Blood Count 6.1 Red Blood Count 3.04 L Hemoglobin 8.2 L Hematocrit 26.5 L Mean Corpuscular Volume 87.2 Mean Corpuscular Hemoglobin 27.0 L Mean Corpuscular Hemoglobin Concent 30.9 L Red Cell Distribution Width 17.2 H Platelet Count 173 # Mean Platelet Volume 9.9 Immature Granulocytes % 4.400 H Neutrophils % 35.1 L Lymphocytes % 42.2 Monocytes % 16.5 H Eosinophils % 1.5 Basophils % 0.3 Nucleated Red Blood Cells % 0.0 Immature Granulocytes # 0.270 H Neutrophils # 2.2 Lymphocytes # 2.6 Monocytes # 1.0 H Eosinophils # 0.1 Basophils # 0.0 Nucleated Red Blood Cells # 0.0 Sodium Level 141 Potassium Level 4.2 Chloride Level 102 Carbon Dioxide Level 30 Anion Gap 9 Blood Urea Nitrogen 7 Creatinine 0.68 Est Glomerular Filtrat Rate mL/min Glucose Level 99 Calcium Level 8.5 Subjective 24 Hr Interval Summary Free Text/Dictation Patient has eyes open but not verbally responsive Exam/Review of Systems Exam Vitals Vital Signs Date Temp Pulse Resp B/P (MAP) Pulse Ox O2 O2 Flow FiO2 Time Delivery Rate 08/01/18 98.0 89 18 133/60 96 Room Air 08:01 (84) 07/31/18 3.0 18:02 Intake and Output 07/31/18 07/31/18 08/01/18 1515:00 23:00 07:00 IntakeIntake Total 480 ml 360 ml BalanceBalance 480 ml 360 ml Constitutional: well developed Head: normocephalic, atraumatic Neck: supple Respiratory: diminished breath sounds Cardiovascular: regular rate and rhythm Gastrointestinal: soft, non-tender Extremities: normal pulses Results Results 24hrs Laboratory Tests Test 08/01/18 05:03 White Blood Count 6.1 Red Blood Count 3.04 L Hemoglobin 8.2 L Hematocrit 26.5 L Mean Corpuscular Volume 87.2 Mean Corpuscular Hemoglobin 27.0 L Mean Corpuscular Hemoglobin Concent 30.9 L Red Cell Distribution Width 17.2 H Platelet Count 173 # Mean Platelet Volume 9.9 Immature Granulocytes % 4.400 H Neutrophils % 35.1 L Lymphocytes % 42.2 Monocytes % 16.5 H Eosinophils % 1.5 Basophils % 0.3 Nucleated Red Blood Cells % 0.0 Immature Granulocytes # 0.270 H Neutrophils # 2.2 Lymphocytes # 2.6 Monocytes # 1.0 H Eosinophils # 0.1 Basophils # 0.0 Nucleated Red Blood Cells # 0.0 Sodium Level 141 Potassium Level 4.2 Chloride Level 102 Carbon Dioxide Level 30 Anion Gap 9 Blood Urea Nitrogen 7 Creatinine 0.68 Est Glomerular Filtrat Rate mL/min Glucose Level 99 Calcium Level 8.5 Medications Medication Current Medications Morphine Sulfate (morphine) 2 mg Q4H PRN IV SEVERE PAIN LEVEL 7-10 Last administered on 07/28/18at 02:40; Admin Dose 2 MG; Start 07/19/18 at 13:30 Acetaminophen (Tylenol Tab) 650 mg Q6H PRN PO MILD PAIN LEVEL 1-3 Last administered on 07/30/18at 20:47; Admin Dose 650 MG; Start 07/19/18 at 13:30 Cholecalciferol (Vitamin D) 400 units DAILY PO Last administered on 08/01/18at 08:22; Admin Dose 400 UNITS; Start 07/20/18 at 09:00 Divalproex Sodium (Depakote Er) 250 mg BID PO Last administered on 08/01/18at 08:21; Admin Dose 250 MG; Start 07/19/18 at 21:00 Donepezil HCl (Aricept) 10 mg DAILY PO Last administered on 08/01/18 08:21; Admin Dose 10 MG; Start 07/20/18 at 09:00 Dutasteride (Avodart) 0.5 mg DAILY PO Last administered on 08/01/18 08:22; Admin Dose 0.5 MG; Start 07/20/18 at 09:00 Escitalopram Oxalate (Lexapro) 5 mg DAILY PO Last administered on 08/01/18 08:19; Admin Dose 5 MG; Start 07/20/18 at 09:00 Ferrous Sulfate (Ferrous Sulfate (Ec)) 325 mg DAILY PO Last administered on 08/01/18 08:21; Admin Dose 325 MG; Start 07/20/18 at 09:00 Hydrocortisone (Hydrocortisone 0.5% Cr) 1 applic QHS PRN TOP ITCHING; Start 07/19/18 at 13:30 Memantine (Namenda) 10 mg DAILY PO Last administered on 08/01/18 08:22; Admin Dose 10 MG; Start 07/20/18 at 09:00 Pantoprazole (Protonix Tab) 40 mg DAILY@0600 PO Last administered on 08/01/18 06:26; Admin Dose 40 MG; Start 07/20/18 at 06:00 Tamsulosin HCl (Flomax) 0.4 mg HS PO Last administered on 07/31/18 21:30; Admin Dose 0.4 MG; Start 07/19/18 at 21:00 Tramadol HCl (Ultram) 50 mg Q6H PRN PO PAIN 5-10/10 Last administered on 07/31/18 01:52; Admin Dose 50 MG; Start 07/19/18 at 13:30 Olanzapine (Zyprexa) 2.5 mg TID PO Last administered on 08/01/18 08:22; Admin Dose 2.5 MG; Start 07/19/18 at 22:00 Docusate Sodium (Colace) 100 mg BID PRN PO CONSTIPATION Last administered on 07/30/18 20:47; Admin Dose 100 MG; Start 07/23/18 at 08:30 Benazepril HCl (Lotensin) 10 mg DAILY PO Last administered on 08/01/18 08:21; Admin Dose 10 MG; Start 07/31/18 at 09:00 Carvedilol (Coreg) 3.125 mg BID PO Last administered on 08/01/18at 08:19; Admin Dose 3.125 MG; Start 07/30/18 at 21:00 GURJIT ANTUNEZ Aug 01, 2018 12:49
[2018-08-01 13:58] VITALS: BP 112/63; PULSE 89; RESP 18
[2018-08-01 19:42] VITALS: BP 110/60; PULSE 95; RESP 16
[2018-08-01] MEDS: traMADol 50 MG TAB PO PRN (20:43)
[2018-08-01] MEDS: TAMSULOSIN (SR) 0.4 MG CAP PO SCH (20:44)
[2018-08-02] MEDS: morphine 2 MG INJ IV PRN (00:05)
[2018-08-02 01:41] VITALS: BP 120/80; PULSE 75; RESP 18
[2018-08-02] MEDS: traMADol 50 MG TAB PO PRN (02:29)
[2018-08-02] MEDS: PANTOPRAZOLE (EC) 40 MG TAB PO SCH (05:32)
[2018-08-02] MEDS: ACETAMINOPHEN 325 MG TAB PO PRN (05:33)
[2018-08-02 08:30] VITALS: BP 133/69; PULSE 101; RESP 18
[2018-08-02] MEDS: CHOLECALCIFEROL 400 UNITS TAB PO SCH (09:01)
[2018-08-02] MEDS: DIVALPROEX (ER) 250 MG TAB PO SCH (09:01)
[2018-08-02] MEDS: OLANZAPINE 2.5 MG TAB PO SCH ×2 (09:01→13:49)
[2018-08-02] MEDS: DONEPEZIL 10 MG TAB PO SCH (09:02)
[2018-08-02] MEDS: MEMANTINE 10 MG TAB PO SCH (09:02)
[2018-08-02] MEDS: ESCITALOPRAM 10 MG TAB PO SCH (09:04)
[2018-08-02] MEDS: FERROUS SULFATE (EC) 325 MG TAB PO SCH (09:04)
[2018-08-02] MEDS: BENAZEPRIL 10 MG TAB PO SCH (09:04)
[2018-08-02] MEDS: DUTASTERIDE 0.5 MG CAP PO SCH (09:06)
--- NOTE | 2018-08-02 11:16 | CONS ---
Assessment/Plan Assessment/Plan Hospital Course (Demo Recall) 82 years old male was admitted for hematuria. hematology consulted for Thrombocytopenia # Thrombocytopenia -this was likely related to his hematuria -now that hematuria has resolved, platelets are now within normal range. Now > 190 -if platelets drop again, will preform full workup to r/o DIC or TTP #BPH and Recurrent gross hematuria. -s/p TURP on 07/21/2018. -hematuria has resolved -Dr. Dolan is following in urology consultation. #Dementia with behavioral disturbance -Continue Aricept, Namenda, Zyprexa. #Depression. Continue Lexapro. Further recommendations based on clinical course. Consultation Date/Type/Reason Admit Date/Time Jul 21, 2018 at 08:05 Initial Consult Date 07/19/18 Type of Consult hematology Reason for Consultation thrombocytopenia Requesting Provider: MARTA MCGUIRE MD Date/Time of Note DATE: 08/02/18 TIME: 11:13 24 HR Interval Summary Free Text/Dictation no hematuria Exam/Review of Systems Exam Vitals Vital Signs Date Temp Pulse Resp B/P (MAP) Pulse Ox O2 O2 Flow FiO2 Time Delivery Rate 08/02/18 98.4 101 18 133/69 92 Room Air 08:30 (90) 08/02/18 3.0 06:24 Intake and Output 08/01/18 08/01/18 08/02/18 1515:00 23:00 07:00 IntakeIntake Total 300 ml 480 ml OutputOutput Total 300 ml BalanceBalance 300 ml 180 ml Psych: no complaints, confusion Head: normocephalic Eyes: nl conjunctiva ENMT: nl external ears & nose Neck: supple Respiratory: clear to auscultation Cardiovascular: regular rate and rhythm Gastrointestinal: soft Musculoskeletal: nl extremities to inspection Results Result Diagram: 08/02/18 0503 08/02/18 0503 Results 24hrs Laboratory Tests Test 08/02/18 02:36 08/02/18 05:03 Bedside Glucose 130 White Blood Count 6.8 Red Blood Count 3.18 L Hemoglobin 8.4 L Hematocrit 27.3 L Mean Corpuscular Volume 85.8 Mean Corpuscular Hemoglobin 26.4 L Mean Corpuscular Hemoglobin Concent 30.8 L Red Cell Distribution Width 17.2 H Platelet Count 194 Mean Platelet Volume 9.9 Immature Granulocytes % 5.700 H Neutrophils % Segmented Neutrophils % (Manual) 49 Lymphocytes % Lymphocytes % (Manual) 32 Reactive Lymphocytes % (Manual) 7 H Monocytes % Monocytes % (Manual) 8 Eosinophils % Eosinophils % (Manual) 2 Basophils % Myelocytes % (Manual) 2 H Nucleated Red Blood Cells % 0.3 H Immature Granulocytes # 0.390 H Neutrophils # Lymphocytes (Manual) 2.1 Lymphocytes # Reactive Lymphocytes # 0.4 H Monocytes # Monocytes # (Manual) 0.5 Eosinophils # Basophils # Myelocytes # 0.1 H Nucleated Red Blood Cells # Platelet Estimate NORMAL Polychromasia 3+ Anisocytosis 1+ Microcytosis 1+ Sodium Level 140 Potassium Level 4.1 Chloride Level 106 Carbon Dioxide Level 28 Anion Gap 6 Blood Urea Nitrogen 8 Creatinine 0.72 Est Glomerular Filtrat Rate mL/min Glucose Level 117 Calcium Level 8.6 Medications Medication Current Medications Morphine Sulfate (morphine) 2 mg Q4H PRN IV SEVERE PAIN LEVEL 7-10 Last administered on 08/02/18 00:05; Admin Dose 2 MG; Start 07/19/18 at 13:30 Acetaminophen (Tylenol Tab) 650 mg Q6H PRN PO MILD PAIN LEVEL 1-3 Last administered on 08/02/18 05:33; Admin Dose 650 MG; Start 07/19/18 at 13:30 Cholecalciferol (Vitamin D) 400 units DAILY PO Last administered on 08/02/18 09:01; Admin Dose 400 UNITS; Start 07/20/18 at 09:00 Divalproex Sodium (Depakote Er) 250 mg BID PO Last administered on 08/02/18 09:01; Admin Dose 250 MG; Start 07/19/18 at 21:00 Donepezil HCl (Aricept) 10 mg DAILY PO Last administered on 08/02/18 09:02; Admin Dose 10 MG; Start 07/20/18 at 09:00 Dutasteride (Avodart) 0.5 mg DAILY PO Last administered on 08/02/18 09:06; Adm in Dose 0.5 MG; Start 07/20/18 at 09:00 Escitalopram Oxalate (Lexapro) 5 mg DAILY PO Last administered on 08/02/18 09:04; Admin Dose 5 MG; Start 07/20/18 at 09:00 Ferrous Sulfate (Ferrous Sulfate (Ec)) 325 mg DAILY PO Last administered on 08/02/18 09:04; Admin Dose 325 MG; Start 07/20/18 at 09:00 Hydrocortisone (Hydrocortisone 0.5% Cr) 1 applic QHS PRN TOP ITCHING; Start 07/19/18 at 13:30 Memantine (Namenda) 10 mg DAILY PO Last administered on 08/02/18 09:02; Admin Dose 10 MG; Start 07/20/18 at 09:00 Pantoprazole (Protonix Tab) 40 mg DAILY@0600 PO Last administered on 08/02/18 05:32; Admin Dose 40 MG; Start 07/20/18 at 06:00 Tamsulosin HCl (Flomax) 0.4 mg HS PO Last administered on 08/01/18 20:44; Admin Dose 0.4 MG; Start 07/19/18 at 21:00 Tramadol HCl (Ultram) 50 mg Q6H PRN PO PAIN 5-01/20 Last administered on 08/02/18 02:29; Admin Dose 50 MG; Start 07/19/18 at 13:30 Olanzapine (Zyprexa) 2.5 mg TID PO Last administered on 08/02/18 09:01; Admin Dose 2.5 MG; Start 07/19/18 at 22:00 Docusate Sodium (Colace) 100 mg BID PRN PO CONSTIPATION Last administered on 07/30/18 20:47; Admin Dose 100 MG; Start 07/23/18 at 08:30 Benazepril HCl (Lotensin) 10 mg DAILY PO Last administered on 08/02/18 09:04; Admin Dose 10 MG; Start 07/31/18 at 09:00 Carvedilol (Coreg) 3.125 mg BID PO Last administered on 08/02/18 09:03; Admin Dose 3.125 MG; Start 07/30/18 at 21:00 RAMILA YOUNG M.D. Aug 02, 2018 11:16
--- NOTE | 2018-08-02 12:30 | CONS ---
Assessment/Plan Assessment/Plan Hospital Course (Demo Recall) IMPRESSION: 1. Preoperative evaluation prior to a transurethral prostatectomy. Now post-op s/p TURP 2. Hematuria, recurrent. 3. Hypertension-now with borderline hypotension? sepsis 4. Dementia. 5. Anemia. 6. EKG with right bundle branch block pattern, negative troponins x3. NL EF by echo 06/01 Recc: -Continue benazepril/coreg with well conrolled BP at this time -pain control -Follow Hgb -ongoing urology f/u Consultation Date/Type/Reason Admit Date/Time Jul 21, 2018 at 08:05 Initial Consult Date 07/19/18 Type of Consult Cardiology Reason for Consultation Preop Requesting Provider: MARTA MCGUIRE MD Date/Time of Note DATE: 08/02/18 TIME: 12:28 Exam/Review of Systems Vital Signs Vitals Vital Signs Date Temp Pulse Resp B/P (MAP) Pulse Ox O2 O2 Flow FiO2 Time Delivery Rate 08/02/18 98.4 101 18 133/69 92 Room Air 08:30 (90) 08/02/18 3.0 06:24 Intake and Output 08/01/18 08/01/18 08/02/18 1515:00 23:00 07:00 IntakeIntake Total 300 ml 480 ml OutputOutput Total 300 ml BalanceBalance 300 ml 180 ml Exam Exam Review of Systems: CONSTITUTIONAL: No fevers, chills. PULMONARY: No sob CARDIOVASCULAR: No chest pain/palpitations GASTROINTESTINAL: No nausea/vomiting. GENITOURINARY: No hematuria/dysuria. MUSCULOSKELETAL: No myagias/arthalgias. PSYCHIATRIC: The patient denies depression. NEUROLOGIC: No weakness Constitutional: alert Psych: no complaints Head: normocephalic ENMT: mucosa pink and moist Neck: supple, jvd (9 cm water) Respiratory: clear to auscultation Cardiovascular: regular rate and rhythm Gastrointestinal: soft, non-tender Musculoskeletal: muscle tone (normal) Extremities: edema (none) Neurological: other (No focal deficits) Labs Result Diagram: 08/02/18 0503 08/02/18 0503 Results 24hrs Laboratory Tests Test 08/02/18 02:36 08/02/18 05:03 Bedside Glucose 130 White Blood Count 6.8 Red Blood Count 3.18 L Hemoglobin 8.4 L Hematocrit 27.3 L Mean Corpuscular Volume 85.8 Mean Corpuscular Hemoglobin 26.4 L Mean Corpuscular Hemoglobin Concent 30.8 L Red Cell Distribution Width 17.2 H Platelet Count 194 Mean Platelet Volume 9.9 Immature Granulocytes % 5.700 H Neutrophils % Segmented Neutrophils % (Manual) 49 Lymphocytes % Lymphocytes % (Manual) 32 Reactive Lymphocytes % (Manual) 7 H Monocytes % Monocytes % (Manual) 8 Eosinophils % Eosinophils % (Manual) 2 Basophils % Myelocytes % (Manual) 2 H Nucleated Red Blood Cells % 0.3 H Immature Granulocytes # 0.390 H Neutrophils # Lymphocytes (Manual) 2.1 Lymphocytes # Reactive Lymphocytes # 0.4 H Monocytes # Monocytes # (Manual) 0.5 Eosinophils # Basophils # Myelocytes # 0.1 H Nucleated Red Blood Cells # Platelet Estimate NORMAL Polychromasia 3+ Anisocytosis 1+ Microcytosis 1+ Sodium Level 140 Potassium Level 4.1 Chloride Level 106 Carbon Dioxide Level 28 Anion Gap 6 Blood Urea Nitrogen 8 Creatinine 0.72 Est Glomerular Filtrat Rate mL/min Glucose Level 117 Calcium Level 8.6 Medications Medications Current Medications Morphine Sulfate (morphine) 2 mg Q4H PRN IV SEVERE PAIN LEVEL 7-10 Last administered on 08/02/18 00:05; Admin Dose 2 MG; Start 07/19/18 at 13:30 Acetaminophen (Tylenol Tab) 650 mg Q6H PRN PO MILD PAIN LEVEL 1-3 Last administered on 08/02/18 05:33; Admin Dose 650 MG; Start 07/19/18 at 13:30 Cholecalciferol (Vitamin D) 400 units DAILY PO Last administered on 08/02/18 09:01; Admin Dose 400 UNITS; Start 07/20/18 at 09:00 Divalproex Sodium (Depakote Er) 250 mg BID PO Last administered on 08/02/18 09:01; Admin Dose 250 MG; Start 07/19/18 at 21:00 Donepezil HCl (Aricept) 10 mg DAILY PO Last administered on 08/02/18 09:02; Admin Dose 10 MG; Start 07/20/18 at 09:00 Dutasteride (Avodart) 0.5 mg DAILY PO Last administered on 08/02/18 09:06; Admin Dose 0.5 MG; Start 07/20/18 at 09:00 Escitalopram Oxalate (Lexapro) 5 mg DAILY PO Last administered on 08/02/18 09:04; Admin Dose 5 MG; Start 07/20/18 at 09:00 Ferrous Sulfate (Ferrous Sulfate (Ec)) 325 mg DAILY PO Last administered on 08/02/18 09:04; Admin Dose 325 MG; Start 07/20/18 at 09:00 Hydrocortisone (Hydrocortisone 0.5% Cr) 1 applic QHS PRN TOP ITCHING; Start 07/19/18 at 13:30 Memantine (Namenda) 10 mg DAILY PO Last administered on 08/02/18 09:02; Admin Dose 10 MG; Start 07/20/18 at 09:00 Pantoprazole (Protonix Tab) 40 mg DAILY@0600 PO Last administered on 08/02/18 05:32; Admin Dose 40 MG; Start 07/20/18 at 06:00 Tamsulosin HCl (Flomax) 0.4 mg HS PO Last administered on 08/01/18 20:44; Admin Dose 0.4 MG; Start 07/19/18 at 21:00 Tramadol HCl (Ultram) 50 mg Q6H PRN PO PAIN 5-01/20 Last administered on 08/02/18 02:29; Admin Dose 50 MG; Start 07/19/18 at 13:30 Olanzapine (Zyprexa) 2.5 mg TID PO Last administered on 08/02/18 09:01; Admin Dose 2.5 MG; Start 07/19/18 at 22:00 Docusate Sodium (Colace) 100 mg BID PRN PO CONSTIPATION Last administered on 07/30/18 20:47; Admin Dose 100 MG; Start 07/23/18 at 08:30 Benazepril HCl (Lotensin) 10 mg DAILY PO Last administered on 08/02/18 09:04; Admin Dose 10 MG; Start 07/31/18 at 09:00 Carvedilol (Coreg) 3.125 mg BID PO Last administered on 08/02/18 09:03; Admin Dose 3.125 MG; Start 07/30/18 at 21:00 LION ROGERS Aug 02, 2018 12:30
--- NOTE | 2018-08-02 13:39 | DS ---
Date/Time of Note Date/Time of Note DATE: 08/02/18 TIME: 13:37 Discharge Summary Admission/Discharge Info Admit Date/Time Jul 21, 2018 at 08:05 Discharge Date/Time 08/02/18 Discharge Diagnosis - HYPOTENSION - IVF - cardiac med adjusted per network technical analyst - Enlarged prostate and Recurrent gross hematuria. s/p TURP on 07/21/2018. Dr. Dolan is following in urology consultation. - Anemia of acute blood loss, continue to monitor H&H, transfuse as needed. - Benign prostatic hypertrophy. Continue Flomax and dutasteride. - Preserved ejection fraction per recent echo - Hypertension. Continue Lotensin. - Dementia with behavioral disturbance. Continue Aricept, Namenda, Zyprexa. - Depression. Continue Lexapro. - Thrombocytopenia- oncology consult appreciated Patient Condition: Fair Consults Urology Cardiology Hematology Procedures TURP Hx of Present Illness Patient comes in with enlarged prostate causing gross hematuria. Hospital Course Patient comes in with enlarged prostate causing gross hematuria. Patient underwent TURP per urology. He tolerated the procedure well. Patient had some blood loss related to the hematura. Once stable, patient was discharged back to SNF. - HYPOTENSION - IVF - cardiac med adjusted per network technical analyst - Enlarged prostate and Recurrent gross hematuria. s/p TURP on 07/21/2018. Dr. Dolan is following in urology consultation. - Anemia of acute blood loss, continue to monitor H&H, transfuse as needed. - Benign prostatic hypertrophy. Continue Flomax and dutasteride. - Preserved ejection fraction per recent echo - Hypertension. Continue Lotensin. - Dementia with behavioral disturbance. Continue Aricept, Namenda, Zyprexa. - Depression. Continue Lexapro. - Thrombocytopenia- oncology consult appreciated Home Meds Reported Medications Acetaminophen* (Tylenol*) 325 Mg Tablet, 650 MG PO Q6H PRN for MILD PAIN LEVEL 1-3, TAB AND FEVER>101F 07/19/18 Hydrocortisone* Topical (Hydrocortisone* Topical) 0.5%-28.35 Gm Cream..g., 1 APPLIC TOP QHS PRN for ITCHING, TUB 07/19/18 Divalproex Sodium* (Depakote ER*) 250 Mg Tabsr, 250 MG PO BID, #30 TAB.SA 07/19/18 Tramadol Hcl* (Ultram*) 50 Mg Tablet, 50 MG PO Q6H PRN for PAIN 5-10/10, TAB 07/19/18 Pantoprazole* (Protonix*) 40 Mg Tablet.dr, 40 MG PO DAILY, TAB 07/01/18 Ferrous Sulfate* (Ferrous Sulfate*) 325 Mg Tabec, 325 MG PO DAILY, TAB 07/01/18 Simvastatin* (Zocor*) 40 Mg Tablet, 40 MG PO QHS, #30 TAB 05/13/18 Risperidone* (Risperdal*) 1 Mg Tablet, 1 MG PO DAILY, TAB 05/13/18 Memantine* (Namenda*) 10 Mg Tablet, 10 MG PO DAILY, #30 TAB 05/13/18 Benazepril Hcl* (Lotensin*) 40 Mg Tablet, 40 MG PO DAILY, #30 TAB HOLD FOR SBP<110 OR [place]<60 05/13/18 Escitalopram Oxalate* (Lexapro*) 5 Mg Tablet, 5 MG PO DAILY, #30 TAB 05/13/18 Tamsulosin Hcl* (Flomax*) 0.4 Mg Cap.er.24h, 0.4 MG PO HS, CAP 05/13/18 Carvedilol* (Coreg*) 6.25 Mg Tablet, 6.25 MG PO BID, #60 TAB HOLD FOR SBP<110 OR [place]<60 05/13/18 Cholecalciferol* (Vitamin D*) 400 Unit Tablet, 400 UNIT PO DAILY, TAB 05/13/18 Dutasteride* (Avodart*) 0.5 Mg Capsule, 0.5 MG PO DAILY, CAP 05/13/18 Donepezil* (Aricept*) 10 Mg Tablet, 10 MG PO DAILY, TAB 05/13/18 Primary Care Provider Cruz Becker MD Pending Labs Laboratory Tests Test 08/02/18 02:36 08/02/18 05:03 Bedside Glucose 130 mg/dL (70-220) White Blood Count 6.8 10^3/ul (4.8-10.8) Red Blood Count 3.18 10^6/ul (4.70-6.10) Hemoglobin 8.4 g/dl (14.0-18.0) Hematocrit 27.3 % (42.0-52.0) Mean Corpuscular Volume 85.8 fl (82.0-101.0) Mean Corpuscular Hemoglobin 26.4 pg (29.0-33.0) Mean Corpuscular 30.8 g/dl (32.0-37.0) Hemoglobin Concent Red Cell Distribution Width 17.2 % (11.5-14.5) Platelet Count 194 10^3/UL (140-415) Mean Platelet Volume 9.9 fl (7.4-10.4) Immature Granulocytes % 5.700 % (0.001-0.429) Neutrophils % % (39.0-77.0) Segmented Neutrophils % (Manual) 49 % (39-77) Lymphocytes % % (15.0-51.0) Lymphocytes % (Manual) 32 % (15-51) Reactive Lymphocytes % (Manual) 7 % (0-0) Monocytes % % (0.0-11.0) Monocytes % (Manual) 8 % (0-11) Eosinophils % % (0.0-7.0) Eosinophils % (Manual) 2 % (0-7) Basophils % % (0.0-2.0) Myelocytes % (Manual) 2 % (0-0) Nucleated Red Blood Cells % 0.3 /100WBC (0.0-0.0) Immature Granulocytes # 0.390 10^3/ul (0.0-0.031) Neutrophils # 10^3/ul (1.6-7.5) Lymphocytes (Manual) 2.1 10^3/ul (0.8-2.9) Lymphocytes # 10^3/ul (0.8-2.9) Reactive Lymphocytes # 0.4 10^3/ul (0.0-0.0) Monocytes # 10^3/ul (0.3-0.9) Monocytes # (Manual) 0.5 10^3/ul (0.3-0.9) Eosinophils # 10^3/ul (0.0-0.5) Basophils # 10^3/ul (0.0-0.1) Myelocytes # 0.1 10^3/ul (0.0-0.0) Nucleated Red Blood Cells # 10^3/ul (0.0-0.0) Platelet Estimate NORMAL Polychromasia 3+ (0-0) Anisocytosis 1+ (0-0) Microcytosis 1+ (0-0) Sodium Level 140 mmol/L (135-144) Potassium Level 4.1 mmol/L (3.5-5.1) Chloride Level 106 mmol/L (97-110) Carbon Dioxide Level 28 mmol/L (21-31) Anion Gap 6 (5-13) Blood Urea Nitrogen 8 mg/dl (7-20) Creatinine 0.72 mg/dl (0.61-1.24) Est Glomerular Filtrat mL/min (>60) Rate mL/min Glucose Level 117 mg/dl (70-220) Calcium Level 8.6 mg/dl (8.4-10.2) GURJIT ANTUNEZ Aug 02, 2018 13:39
[2018-08-02 15:01] VITALS: BP 107/56; PULSE 85; RESP 18
== END 2018-08-02 17:05 | DRG 713 ==
LOC: E/R 06:54 → 2NE 09:56 → INTOOBSV 09:56 → OBSVTOIN 07-21 08:05 → MS1 07-21 23:30
PROVIDERS: ADMIT Internal Medicine; ATTEND Internal Medicine
PROC: 3E1K78Z Irrigation of Genitourinary Tract using Irrigating Substance, Via Natural or Artificial Opening (ICD-10-PCS; 2018-07-19)
PROC: 0VT08ZZ Resection of Prostate, Via Natural or Artificial Opening Endoscopic (ICD-10-PCS; principal; 2018-07-21 19:30)
DX: N40.1 Benign prostatic hyperplasia with lower urinary tract symptoms (principal); N13.8 Other obstructive and reflux uropathy; D62 Acute posthemorrhagic anemia; F03.91 Unspecified dementia, unspecified severity, with behavioral disturbance; D61.818 Other pancytopenia; R31.0 Gross hematuria; I95.9 Hypotension, unspecified; I10 Essential (primary) hypertension; F32.9 Major depressive disorder, single episode, unspecified; R33.8 Other retention of urine; I45.10 Unspecified right bundle-branch block
CPT/HCPCS: 36415; 71045; 80048; 81001; 82550; 82553; 82962; 84484; 85025; 85049; 85610; 85670; 85730; 86850; 86900; 86901; 86920; 87081; 87086; 88305; 93005; 96374; 96375; 97116; 97161; 97530; 99217; G0378; J0690; J1100; J2175; J2270; J2405; J2710; J2765; J3010; J7030; J7040; J7042

== ENCOUNTER 2018-09-01 11:43 | Inpatient (IN) | payer MEDICARE, OTHER ==
[~2018-09-01] VITALS: Ht 170.2 cm; Wt 91.5 kg
[~2018-09-01 11:43] MED LIST changes: -ACET-2047 PO; +ACET325T33 PO; -ASPI81TA52 PO; +DIVA-73 PO; -DOCU250C58 PO; +HYDR28.340 TOP; +TRAM50TA PO
[2018-09-01] MEDS ORDERED: OMEP20CA16 PO (12:37)
[2018-09-01] MEDS ORDERED: OLAN2.5T28 PO (12:37)
[2018-09-01] MEDS ORDERED: ONDANSETRON 4 MG INJ IV PRN ×2 (13:00→17:30)
[2018-09-01] MEDS ORDERED: CEFTRIAXONE 1 GM/50 ML (PMX) 50 ML IVPB ONE (13:00)
[2018-09-01] MEDS ORDERED: ACETAMINOPHEN 325 MG TAB PO PRN ×2 (13:00→17:30)
--- NOTE | 2018-09-01 15:50 | ERD ---
ER Documentation Chief Complaint Chief Complaint SENT FROM [facility] FOR EVAL OF AGGRESSIVE BEHAVIOR TOWARDS STAFF @SNF HPI Patient is an 83-year-old male who presents with aggressive behavior. Please note the history and physical exam is limited secondary to the patient's mental status. A bleach supervisor was used. The patient was sent by [facility] for aggressive behavior. He was brought in by ambulance. I cannot obtain history otherwise. Upon review of old medical records this is the patient's sixth visit to the ER since 2018. The patient's primary doctor is Dr. Becker. ROS All systems reviewed and are negative except as per history of present illness. Medications Home Meds Reported Medications Omeprazole* (Omeprazole*) 20 Mg Capsule.dr, 20 MG PO DAILY, #30 CAP 09/01/18 Olanzapine* (Zyprexa*) 2.5 Mg Tablet, 2.5 MG PO TID, #30 TAB 09/01/18 Acetaminophen* (Tylenol*) 325 Mg Tablet, 650 MG PO Q6H PRN for PAIN LEVEL 1-5, TAB AND FEVER>102F 07/19/18 Divalproex Sodium* (Depakote ER*) 250 Mg Tabsr, 250 MG PO BID, #30 TAB.SA 07/19/18 Tramadol Hcl* (Ultram*) 50 Mg Tablet, 50 MG PO Q6H PRN for PAIN 5-10/10, TAB 07/19/18 Ferrous Sulfate* (Ferrous Sulfate*) 325 Mg Tabec, 325 MG PO DAILY, TAB 07/01/18 Simvastatin* (Zocor*) 40 Mg Tablet, 40 MG PO QHS, #30 TAB 05/13/18 Memantine* (Namenda*) 10 Mg Tablet, 10 MG PO DAILY, #30 TAB 05/13/18 Benazepril Hcl* (Lotensin*) 40 Mg Tablet, 40 MG PO DAILY, #30 TAB HOLD FOR SBP<110 OR [place]<60 05/13/18 Escitalopram Oxalate* (Lexapro*) 5 Mg Tablet, 5 MG PO DAILY, #30 TAB 05/13/18 Tamsulosin Hcl* (Flomax*) 0.4 Mg Cap.er.24h, 0.4 MG PO HS, CAP 05/13/18 Carvedilol* (Coreg*) 6.25 Mg Tablet, 6.25 MG PO BID, #60 TAB HOLD FOR SBP<110 OR [place]<60 05/13/18 Cholecalciferol* (Vitamin D*) 400 Unit Tablet, 400 UNIT PO DAILY, TAB 05/13/18 Dutasteride* (Avodart*) 0.5 Mg Capsule, 0.5 MG PO DAILY, CAP 05/13/18 Donepezil* (Aricept*) 10 Mg Tablet, 10 MG PO DAILY, TAB 05/13/18 Discontinued Reported Medications Hydrocortisone* Topical (Hydrocortisone* Topical) 0.5%-28.35 Gm Cream..g., 1 APPLIC TOP QHS PRN for ITCHING, TUB 07/19/18 Pantoprazole* (Protonix*) 40 Mg Tablet.dr, 40 MG PO DAILY, TAB 07/01/18 Risperidone* (Risperdal*) 1 Mg Tablet, 1 MG PO DAILY, TAB 05/13/18 Allergies Allergies: Coded Allergies: No Known Allergy (Unverified , 09/01/18) PMhx/Soc History of Surgery: No Hx Neurological Disorder: Yes (Dementia) Hx Respiratory Disorders: Yes (copd) Hx Cardiac Disorders: Yes (chf, htn) Hx Psychiatric Problems: Yes (depression, dementia, psychosis) Hx Miscellaneous Medical Probl: Yes (ANEMIA , BPH, HTN , DEMENTIA, DEPRESSION , HEMATURIA) Hx Alcohol Use: No Hx Substance Use: No Hx Tobacco Use: No FmHx Unable to obtain Physical Exam Vitals Vital Signs Date Temp Pulse Resp B/P (MAP) Pulse Ox O2 O2 Flow FiO2 Time Delivery Rate 09/01/18 96.9 79 18 134/87 99 11:51 (103) Physical Exam Const: No acute distress Head: Atraumatic Eyes: Normal Conjunctiva ENT: Normal External Ears, Nose and Mouth. Neck: Full range of motion. No meningismus. Resp: Clear to auscultation bilaterally Cardio: Regular rate and rhythm, no murmurs Abd: Soft, non tender, non distended. Normal bowel sounds Skin: No petechiae or rashes Back: No midline or flank tenderness Ext: No cyanosis, or edema Neur: Awake but confused Result Diagram: 09/01/18 1231 09/01/18 1231 Results 24 hrs Laboratory Tests Test 09/01/18 12:31 09/01/18 13:05 White Blood Count 3.2 10^3/ul Red Blood Count 3.96 10^6/ul Hemoglobin 9.3 g/dl Hematocrit 31.6 % Mean Corpuscular Volume 79.8 fl Mean Corpuscular Hemoglobin 23.5 pg Mean Corpuscular Hemoglobin Concent 29.4 g/dl Red Cell Distribution Width 17.1 % Platelet Count 122 10^3/UL Mean Platelet Volume 9.9 fl Immature Granulocytes % 0.300 % Neutrophils % 16.6 % Lymphocytes % 60.7 % Monocytes % 18.1 % Eosinophils % 4.0 % Basophils % 0.3 % Nucleated Red Blood Cells % 0.0 /100WBC Immature Granulocytes # 0.010 10^3/ul Neutrophils # 0.5 10^3/ul Lymphocytes # 2.0 10^3/ul Monocytes # 0.6 10^3/ul Eosinophils # 0.1 10^3/ul Basophils # 0.0 10^3/ul Nucleated Red Blood Cells # 0.0 10^3/ul Sodium Level 143 mmol/L Potassium Level 4.1 mmol/L Chloride Level 109 mmol/L Carbon Dioxide Level 27 mmol/L Anion Gap 7 Blood Urea Nitrogen 11 mg/dl Creatinine 0.68 mg/dl Est Glomerular Filtrat Rate mL/min mL/min Glucose Level 89 mg/dl Calcium Level 8.6 mg/dl Total Bilirubin 0.3 mg/dl Direct Bilirubin 0.00 mg/dl Indirect Bilirubin 0.3 mg/dl Aspartate Amino Transf (AST/SGOT) 16 IU/L Alanine Aminotransferase (ALT/SGPT) 20 IU/L Alkaline Phosphatase 49 IU/L Total Protein 7.5 g/dl Albumin 3.6 g/dl Globulin 3.90 g/dl Albumin/Globulin Ratio 0.92 Salicylates Level < 1.0 mg/dl Acetaminophen Level < 10.0 ug/ml Ethyl Alcohol Level < 10.0 mg/dl Urine Color YELLOW Urine Clarity SLIGHTLY CLOUDY Urine pH 7.0 Urine Specific [place] 1.016 Urine Ketones NEGATIVE mg/dL Urine Nitrite NEGATIVE mg/dL Urine Bilirubin NEGATIVE mg/dL Urine Urobilinogen 1+ mg/dL Urine Leukocyte Esterase 2+ Miracle/ul Urine Microscopic RBC 23 /HPF Urine Microscopic WBC 61 /HPF Urine Bacteria FEW /HPF Urine Mucus FEW /HPF Urine Yeast (Budding) MODERATE /HPF Urine Hemoglobin 1+ mg/dL Urine Glucose NEGATIVE mg/dL Urine Total Protein 2+ mg/dl Urine Opiates Screen Negative Urine Barbiturates Negative Urine Amphetamines Screen Negative Urine Benzodiazepines Screen Negative Urine Cocaine Screen Negative Urine Cannabinoids Negative Current Medications Medications Dose Sig/Jones Start Time Status Last (Trade) Ordered Route PRN Stop Time Admin Dose Reason Admin Ondansetron 4 mg BRIDGE ORDER 09/01/18 HCl (Zofran PRN IV 13:00 Inj) NAUSEA/VOMITI 09/02/18 12:59 NG 650 mg ER BRIDGE 09/01/18 Acetaminophen PRN PO 13:00 (Tylenol .MILD PAIN 09/02/18 12:59 Tab) 1-3 OR TEMP Ceftriaxone 50 ml @ ONCE ONCE 09/01/18 DC 09/01/18 Sodium 100 mls/hr IVPB 13:00 13:46 09/01/18 13:29 Procedures/MDM Patient is a 83-year-old male who presents with aggressive behavior. He was found to have UTI with cystitis which may be the cause of his altered mental status. I spoke to Dr. Becker who said that this is happened before when he gets UTI. I doubt sepsis at this time. I have given ceftriaxone 1 g IV and the urine culture is pending. The patient will be admitted to the care of Dr. Becker to a medical surgical bed. Departure Diagnosis: Primary Impression: Cystitis Additional Impressions: Anemia Anemia type: unspecified type Qualified Codes: D64.9 - Anemia, unspecified Altered mental status Altered mental status type: unspecified Qualified Codes: R41.82 - Altered mental status, unspecified Condition: MICHAEL Au MD September 01, 2018 15:50
--- NOTE | 2018-09-01 17:16 | HP ---
Date/Time of Note Date/Time of Note DATE: 09/01/18 TIME: 17:04 Assessment/Plan VTE Prophylaxis SCD applied (from Nsg): Yes Pharmacological prophylaxis: NA/contraindicated Pharm contraindication: thrombocytopenia Lines/Catheters IV Catheter Type (from Nrsg): Saline Lock Assessment/Plan Assessment/Plan -Cystitis. Will obtain urine culture, continue broad-spectrum antibiotic. -Possible metabolic encephalopathy secondary to infection -Pancytopenia -Dementia with behavioral disturbance. Continue Aricept, Namenda, Zyprexa. Will obtain psychiatric consult. -HX of BPH, s/p TURP on 07/21/2018. Dr. Dolan is following in urology consultation. -Preserved ejection fraction per recent echo -Hypertension. Continue Lotensin. -Depression. Continue Lexapro. Further recommendations based on clinical course. Plan of care discussed with Dr. Becker. Result Diagram: 09/01/18 1231 09/01/18 1231 Results 24hrs Laboratory Tests Test 09/01/18 12:31 09/01/18 13:05 White Blood Count 3.2 #L Red Blood Count 3.96 #L Hemoglobin 9.3 L Hematocrit 31.6 L Mean Corpuscular Volume 79.8 L Mean Corpuscular Hemoglobin 23.5 L Mean Corpuscular Hemoglobin Concent 29.4 L Red Cell Distribution Width 17.1 H Platelet Count 122 #L Mean Platelet Volume 9.9 Immature Granulocytes % 0.300 Neutrophils % 16.6 L Lymphocytes % 60.7 H Monocytes % 18.1 H Eosinophils % 4.0 Basophils % 0.3 Nucleated Red Blood Cells % 0.0 Immature Granulocytes # 0.010 Neutrophils # 0.5 L Lymphocytes # 2.0 Monocytes # 0.6 Eosinophils # 0.1 Basophils # 0.0 Nucleated Red Blood Cells # 0.0 Sodium Level 143 Potassium Level 4.1 Chloride Level 109 Carbon Dioxide Level 27 Anion Gap 7 Blood Urea Nitrogen 11 Creatinine 0.68 Est Glomerular Filtrat Rate mL/min Glucose Level 89 Calcium Level 8.6 Total Bilirubin 0.3 Direct Bilirubin 0.00 Indirect Bilirubin 0.3 Aspartate Amino Transf (AST/SGOT) 16 Alanine Aminotransferase (ALT/SGPT) 20 Alkaline Phosphatase 49 Total Protein 7.5 Albumin 3.6 Globulin 3.90 H Albumin/Globulin Ratio 0.92 Salicylates Level < 1.0 L Acetaminophen Level < 10.0 L Ethyl Alcohol Level < 10.0 H Urine Color YELLOW Urine Clarity SLIGHTLY CLOUDY A Urine pH 7.0 Urine Specific [place] 1.016 Urine Ketones NEGATIVE Urine Nitrite NEGATIVE Urine Bilirubin NEGATIVE Urine Urobilinogen 1+ H Urine Leukocyte Esterase 2+ H Urine Microscopic RBC 23 H Urine Microscopic WBC 61 H Urine Bacteria FEW A Urine Mucus FEW A Urine Yeast (Budding) MODERATE A Urine Hemoglobin 1+ H Urine Glucose NEGATIVE Urine Total Protein 2+ H Urine Opiates Screen Negative Urine Barbiturates Negative Urine Amphetamines Screen Negative Urine Benzodiazepines Screen Negative Urine Cocaine Screen Negative Urine Cannabinoids Negative HPI/ROS Admit Date/Time Admit Date/Time Hx of Present Illness The patient is a 82-year-old male known to me from previous admission. Patient with history of dementia with behavioral disturbances, hypertension, BPH, osteoporosis, thrombocytopenia, status post TURP in July [address] Dolan. Patient was brought from snf facility for altered mental status with agitation, inappropriate and sometimes violent behavior towards staff. Patient is awake alert however cannot provide any detailed medical history due to dementia. Patient urinalysis is indicative of urinary tract infection. Patient is diagnosed with cystitis and started on broad-spectrum antibiotics. Patient will be admitted for further evaluation and management. ROS 12 point review of system is negative except for what mentioned in HPI PMH/Family/Social Past Medical History per HPI Medical History: hypertension Medications Current Medications Ondansetron HCl (Zofran Inj) 4 mg BRIDGE ORDER PRN IV NAUSEA/VOMITING; Start 09/01/18 at 13:00; Stop 09/02/18 at 12:59 Acetaminophen (Tylenol Tab) 650 mg ER BRIDGE PRN PO .MILD PAIN 1-3 OR TEMP; Start 09/01/18 at 13:00; Stop 09/02/18 at 12:59 Coded Allergies: No Known Allergy (Unverified , 09/01/18) Past Surgical History Past Surgical Hx: other (Status post TURP on 07/21/[address] Dolan) Family History Significant Family History: no pertinent family hx Social History Alcohol Use: none Smoking Status: Former smoker Drug Use: none Exam/Review of Systems Vital Signs Vitals Vital Signs Date Temp Pulse Resp B/P (MAP) Pulse Ox O2 O2 Flow FiO2 Time Delivery Rate 09/01/18 50 18 141/88 98 16:00 (105) 09/01/18 96.9 11:51 Exam Constitutional: alert, oriented Psych: confusion Neck: supple Respiratory: clear to auscultation Cardiovascular: nl pulses Gastrointestinal: soft, non-tender Extremities: normal pulses Neurological: nl mental status Skin: nl JOYCE Curran September 01, 2018 17:15
[2018-09-01] MEDS ORDERED: OXYCODONE/ACETAMINOPHEN (5/325) TAB PO PRN (17:30)
[2018-09-01] MEDS ORDERED: BISACODYL (EC) 5 MG TAB PO PRN (17:30)
[2018-09-01] MEDS ORDERED: DOCUSATE SODIUM 100 MG CAP PO PRN (17:30)
[2018-09-01] MEDS: TAMSULOSIN (SR) 0.4 MG CAP PO SCH (21:57)
[2018-09-01] MEDS: OLANZAPINE 2.5 MG TAB PO SCH (21:57)
[2018-09-01] MEDS: DIVALPROEX (ER) 250 MG TAB PO SCH (21:57)
[2018-09-01] MEDS: ATORVASTATIN 20 MG TAB PO SCH (21:58)
[2018-09-01] MEDS: FAMOTIDINE 20 MG TAB PO SCH (21:59)
[2018-09-02 02:42] VITALS: Ht 170.2 cm; Wt 91.5 kg
[2018-09-02 07:59] VITALS: BP 127/65; PULSE 71; RESP 18
[2018-09-02] MEDS: BENAZEPRIL 40 MG TAB PO SCH (08:31)
[2018-09-02] MEDS: FERROUS SULFATE (EC) 325 MG TAB PO SCH (08:31)
[2018-09-02] MEDS: ESCITALOPRAM 10 MG TAB PO SCH (08:31)
[2018-09-02] MEDS: FAMOTIDINE 20 MG TAB PO SCH ×2 (08:31→21:17)
[2018-09-02] MEDS: OLANZAPINE 2.5 MG TAB PO SCH ×3 (08:31→21:17)
[2018-09-02] MEDS: DIVALPROEX (ER) 250 MG TAB PO SCH ×2 (09:37→21:16)
[2018-09-02] MEDS: DUTASTERIDE 0.5 MG CAP PO SCH (09:37)
[2018-09-02] MEDS: DONEPEZIL 10 MG TAB PO SCH (09:37)
[2018-09-02] MEDS: MEMANTINE 10 MG TAB PO SCH (09:37)
--- NOTE | 2018-09-02 10:52 | PSY ---
Date/Time of Note Date/Time of Note DATE: 09/02/18 TIME: 10:21 Psychiatric Subjective Eval Consent Pt consented to telemedicine: No Subjective Evaluation Patient location: inpatient Chief Complaint: SENT FROM [facility] FOR EVAL OF AGGRESSIVE BEHAVIOR TOWARDS STAFF @[facility] History of present illness Patient is 83year old male, who is increasingly agitated. Patient is disorganized, confused, oriented to name only. Patient gets agitated, hypersexual and difficult to redirect Hospitalization: other Medical history Problems Medical Problems: (1) Acute dehydration Status: Acute (2) Acute UTI Status: Acute (3) Altered level of consciousness Status: Acute (4) Altered mental status Status: Acute (5) Anemia Status: Acute (6) Bandemia Status: Acute (7) Cystitis Status: Acute (8) Dementia Status: Acute (9) Dementia with behavioral problem Status: Acute (10) Hematuria Status: Acute (11) Hematuria Status: Acute (12) Pharyngitis Status: Acute (13) UTI (urinary tract infection) Status: Acute Allergies: Coded Allergies: No Known Allergy (Unverified , 09/01/18) Substance Abuse Substance abuse history: No Prior substance abuse treatmen: No Social History Marital status: other DPA/Conservatorship: No Psychiatric Objective Eval Mental Status Examination: Laboratory Results Laboratory Tests Test 09/01/18 12:31 09/01/18 13:05 09/02/18 06:44 White Blood Count 3.2 10^3/ul 2.7 10^3/ul Red Blood Count 3.96 10^6/ul 4.04 10^6/ul Hemoglobin 9.3 g/dl 9.3 g/dl Hematocrit 31.6 % 31.9 % Mean Corpuscular Volume 79.8 fl 79.0 fl Mean Corpuscular Hemoglobin 23.5 pg 23.0 pg Mean Corpuscular 29.4 g/dl 29.2 g/dl Hemoglobin Concent Red Cell Distribution Width 17.1 % 17.2 % Platelet Count 122 10^3/UL 132 10^3/UL Mean Platelet Volume 9.9 fl 10.0 fl Immature Granulocytes % 0.300 % 0.400 % Neutrophils % 16.6 % 17.3 % Lymphocytes % 60.7 % 57.7 % Monocytes % 18.1 % 20.2 % Eosinophils % 4.0 % 4.0 % Basophils % 0.3 % 0.4 % Nucleated Red Blood Cells % 0.0 /100WBC 0.0 /100WBC Immature Granulocytes # 0.010 10^3/ul 0.010 10^3/ul Neutrophils # 0.5 10^3/ul 0.5 10^3/ul Lymphocytes # 2.0 10^3/ul 1.6 10^3/ul Monocytes # 0.6 10^3/ul 0.6 10^3/ul Eosinophils # 0.1 10^3/ul 0.1 10^3/ul Basophils # 0.0 10^3/ul 0.0 10^3/ul Nucleated Red Blood Cells # 0.0 10^3/ul 0.0 10^3/ul Sodium Level 143 mmol/L 142 mmol/L Potassium Level 4.1 mmol/L 4.1 mmol/L Chloride Level 109 mmol/L 108 mmol/L Carbon Dioxide Level 27 mmol/L 29 mmol/L Anion Gap 7 5 Blood Urea Nitrogen 11 mg/dl 13 mg/dl Creatinine 0.68 mg/dl 0.68 mg/dl Est Glomerular Filtrat mL/min mL/min Rate mL/min Glucose Level 89 mg/dl 84 mg/dl Calcium Level 8.6 mg/dl 8.5 mg/dl Total Bilirubin 0.3 mg/dl Direct Bilirubin 0.00 mg/dl Indirect Bilirubin 0.3 mg/dl Aspartate Amino 16 IU/L Transf (AST/SGOT) Alanine 20 IU/L Aminotransferase (ALT/SGPT) Alkaline Phosphatase 49 IU/L Total Protein 7.5 g/dl Albumin 3.6 g/dl Globulin 3.90 g/dl Albumin/Globulin Ratio 0.92 Salicylates Level < 1.0 mg/dl Acetaminophen Level < 10.0 ug/ml Ethyl Alcohol Level < 10.0 mg/dl Urine Color YELLOW Urine Clarity SLIGHTLY CLOUDY Urine pH 7.0 Urine Specific [place] 1.016 Urine Ketones NEGATIVE mg/dL Urine Nitrite NEGATIVE mg/dL Urine Bilirubin NEGATIVE mg/dL Urine Urobilinogen 1+ mg/dL Urine Leukocyte Esterase 2+ Miracle/ul Urine Microscopic RBC 23 /HPF Urine Microscopic WBC 61 /HPF Urine Bacteria FEW /HPF Urine Mucus FEW /HPF Urine Yeast (Budding) MODERATE /HPF Urine Hemoglobin 1+ mg/dL Urine Glucose NEGATIVE mg/dL Urine Total Protein 2+ mg/dl Urine Opiates Screen Negative Urine Barbiturates Negative Urine Amphetamines Screen Negative Urine Benzodiazepines Screen Negative Urine Cocaine Screen Negative Urine Cannabinoids Negative Assessment and Plan Assessment/Diagnosis Diagnosis Dementia with behavioral disturbance Recommendation/Plan Medication Management Continue current medications Discharge Disposition: Other Legal Status: Voluntary (Does not meet criteria for 5150 hold) TRE JONES NP September 02, 2018 10:40
[2018-09-02] MEDS ORDERED: CEFTRIAXONE 1 GM/50 ML (PMX) 50 ML IVPB SCH (13:00)
[2018-09-02 14:31] VITALS: BP 97/53; PULSE 73; RESP 18
--- NOTE | 2018-09-02 18:57 | PN ---
Date/Time of Note Date/Time of Note DATE: 09/02/18 TIME: 18:54 Assessment/Plan VTE Prophylaxis Risk score (from Ns)>0 risk: 3 SCD applied (from Ns): Yes Pharmacological prophylaxis: NA/contraindicated Pharm contraindication: anticoag not tolerated Lines/Catheters [facility] ([facility] Peripheral IV Assessment/Plan Hospital Course Patient is awake alert otherwise confused, remains hemodynamically stable, able to void, no hematuria per RN. Assessment/Plan -Cystitis. F/up on final urine culture, continue broad-spectrum antibiotic. Dr. Self is asked to see patient in infection disease consultation. -Possible metabolic encephalopathy secondary to infection -Pancytopenia -Dementia with behavioral disturbance. Continue Aricept, Namenda, Zyprexa. psychiatric consult is appreciated. -HX of BPH, s/p TURP on 07/21/2018. Dr. Dolan is following in urology consultation. -Preserved ejection fraction per recent echo -Hypertension. Continue Lotensin. -Depression. Continue Lexapro. Further recommendations based on clinical course. Plan of care discussed with Dr. Becker. Result Diagram: 09/02/18 0644 09/02/18 0644 Results 24hrs Laboratory Tests Test 09/02/18 06:44 White Blood Count 2.7 L Red Blood Count 4.04 L Hemoglobin 9.3 L Hematocrit 31.9 L Mean Corpuscular Volume 79.0 L Mean Corpuscular Hemoglobin 23.0 L Mean Corpuscular Hemoglobin Concent 29.2 L Red Cell Distribution Width 17.2 H Platelet Count 132 L Mean Platelet Volume 10.0 Immature Granulocytes % 0.400 Neutrophils % 17.3 L Lymphocytes % 57.7 H Monocytes % 20.2 H Eosinophils % 4.0 Basophils % 0.4 Nucleated Red Blood Cells % 0.0 Immature Granulocytes # 0.010 Neutrophils # 0.5 L Lymphocytes # 1.6 Monocytes # 0.6 Eosinophils # 0.1 Basophils # 0.0 Nucleated Red Blood Cells # 0.0 Sodium Level 142 Potassium Level 4.1 Chloride Level 108 Carbon Dioxide Level 29 Anion Gap 5 Blood Urea Nitrogen 13 Creatinine 0.68 Est Glomerular Filtrat Rate mL/min Glucose Level 84 Calcium Level 8.5 Exam/Review of Systems Exam Vitals Vital Signs Date Temp Pulse Resp B/P (MAP) Pulse Ox O2 O2 Flow FiO2 Time Delivery Rate 09/02/18 98.5 73 18 97/53 (68) 93 Room Air 14:31 Exam Constitutional: alert, oriented Psych: confusion Neck: supple Respiratory: clear to auscultation Cardiovascular: nl pulses Gastrointestinal: soft, non-tender Extremities: normal pulses Neurological: nl mental status Skin: nl turgor Results Results 24hrs Laboratory Tests Test 09/02/18 06:44 White Blood Count 2.7 L Red Blood Count 4.04 L Hemoglobin 9.3 L Hematocrit 31.9 L Mean Corpuscular Volume 79.0 L Mean Corpuscular Hemoglobin 23.0 L Mean Corpuscular Hemoglobin Concent 29.2 L Red Cell Distribution Width 17.2 H Platelet Count 132 L Mean Platelet Volume 10.0 Immature Granulocytes % 0.400 Neutrophils % 17.3 L Lymphocytes % 57.7 H Monocytes % 20.2 H Eosinophils % 4.0 Basophils % 0.4 Nucleated Red Blood Cells % 0.0 Immature Granulocytes # 0.010 Neutrophils # 0.5 L Lymphocytes # 1.6 Monocytes # 0.6 Eosinophils # 0.1 Basophils # 0.0 Nucleated Red Blood Cells # 0.0 Sodium Level 142 Potassium Level 4.1 Chloride Level 108 Carbon Dioxide Level 29 Anion Gap 5 Blood Urea Nitrogen 13 Creatinine 0.68 Est Glomerular Filtrat Rate mL/min Glucose Level 84 Calcium Level 8.5 Medications Medication Current Medications Ondansetron HCl (Zofran Inj) 4 mg Q6H PRN IV NAUSEA/VOMITING; Start 09/01/18 at 17:30 Acetaminophen (Tylenol Tab) 650 mg Q6H PRN PO .PAIN 1-3 OR TEMP; Start 09/01/18 at 17:30 Oxycodone/ Acetaminophen (Percocet (5/ 325)) 1 tab Q6H PRN PO .MOD PAIN 4-6; Start 09/01/18 at 17:30 Docusate Sodium (Colace) 100 mg Q12H PRN PO .CONSTIPATION; Start 09/01/18 at 17:30 Bisacodyl (Dulcolax) 5 mg DAILY PRN PO .CONSTIPATION; Start 09/01/18 at 17:30 Famotidine (Pepcid) 20 mg Q12 PO Last administered on 09/02/18at 08:31; Admin Dose 20 MG; Start 09/01/18 at 21:00 Benazepril HCl (Lotensin) 40 mg DAILY PO Last administered on 09/02/18 08:31; Admin Dose 40 MG; Start 09/02/18 at 09:00 Carvedilol (Coreg) 6.25 mg BID PO Last administered on 09/02/18 09:38; Admin Dose 6.25 MG; Start 09/01/18 at 21:00 Divalproex Sodium (Depakote Er) 250 mg BID PO Last administered on 09/02/18 09:37; Admin Dose 250 MG; Start 09/01/18 at 21:00 Donepezil HCl (Aricept) 10 mg DAILY PO Last administered on 09/02/18 09:37; Admin Dose 10 MG; Start 09/02/18 at 09:00 Dutasteride (Avodart) 0.5 mg DAILY PO Last administered on 09/02/18 09:37; Admin Dose 0.5 MG; Start 09/02/18 at 09:00 Escitalopram Oxalate (Lexapro) 5 mg DAILY PO Last administered on 09/02/18 08:31; Admin Dose 5 MG; Start 09/02/18 at 09:00 Ferrous Sulfate (Ferrous Sulfate (Ec)) 325 mg DAILY PO Last administered on 09/02/18 08:31; Admin Dose 325 MG; Start 09/02/18 at 09:00 Memantine (Namenda) 10 mg DAILY PO Last administered on 09/02/18 09:37; Admin Dose 10 MG; Start 09/02/18 at 09:00 Olanzapine (Zyprexa) 2.5 mg TID PO Last administered on 09/02/18 12:13; Admin Dose 2.5 MG; Start 09/01/18 at 21:00 Tamsulosin HCl (Flomax) 0.4 mg HS PO Last administered on 09/01/18 21:57; Admin Dose 0.4 MG; Start 09/01/18 at 21:00 Atorvastatin Calcium (Lipitor) 20 mg DAILY@21 PO Last administered on 09/01/18 21:58; Admin Dose 20 MG; Start 09/01/18 at 21:00 Ceftriaxone Sodium 50 ml @ 100 mls/hr Q24H IVPB Last administered on 09/02/18 12:12; Admin Dose 100 MLS/HR; Start 09/02/18 at 13:00 JOYCE CHOW September 02, 2018 18:57
[2018-09-02 19:51] VITALS: BP 114/65; PULSE 79; RESP 18
[2018-09-02 21:14] VITALS: BP 105/55; PULSE 84
[2018-09-02] MEDS: ATORVASTATIN 20 MG TAB PO SCH (21:17)
[2018-09-02] MEDS: TAMSULOSIN (SR) 0.4 MG CAP PO SCH (21:17)
[2018-09-03 01:38] VITALS: BP 118/69; PULSE 71; RESP 18
[2018-09-03 07:42] VITALS: BP 114/77; PULSE 69; RESP 18
[2018-09-03] MEDS: FAMOTIDINE 20 MG TAB PO SCH ×2 (09:05→21:04)
[2018-09-03] MEDS: DUTASTERIDE 0.5 MG CAP PO SCH (09:05)
[2018-09-03] MEDS: FERROUS SULFATE (EC) 325 MG TAB PO SCH (09:05)
[2018-09-03] MEDS: DIVALPROEX (ER) 250 MG TAB PO SCH ×2 (09:05→21:04)
[2018-09-03] MEDS: ESCITALOPRAM 10 MG TAB PO SCH (09:05)
[2018-09-03] MEDS: OLANZAPINE 2.5 MG TAB PO SCH ×3 (09:06→21:04)
[2018-09-03] MEDS: DONEPEZIL 10 MG TAB PO SCH (09:06)
[2018-09-03] MEDS: MEMANTINE 10 MG TAB PO SCH (09:06)
[2018-09-03] MEDS: BENAZEPRIL 40 MG TAB PO SCH (09:07)
[2018-09-03] MEDS: AMOXICILLIN 500 MG CAP PO SCH ×2 (13:29→21:04)
[2018-09-03 14:00] VITALS: BP 104/59; PULSE 64; RESP 18
--- NOTE | 2018-09-03 17:16 | CONS ---
DATE OF ADMISSION: 09/02/2018 DATE OF CONSULTATION: 09/03/2018 TYPE OF CONSULTATION: Infectious disease. REQUESTING PHYSICIAN: Dana Madrigal NP Thank you for this consultation. HISTORY OF PRESENT ILLNESS: This is a well-developed, elderly man with a history of dementia, hypertension, BPH, thrombocytopenia, status post TURP in 07/[address] Dolan. The patient was admitted from [facility] facility with altered mental status, agitation and violent behaviors. Urine culture grew enterococcus species susceptible to ampicillin and all the other antibiotics. Blood cultures had been negative. The patient was initially started on Rocephin, but now switched to oral amoxicillin. LABORATORY DATA: WBC on admission 3.2, H and H 9.3 and 31.6, platelets 122, neutrophils 16.6. Normal electrolytes, BUN 11, creatinine 0.68. PHYSICAL EXAMINATION: VITAL SIGNS: The patient came with a temperature of 96.9, pulse 79, respirations 18, blood pressure 134/87, saturation 99% on room air. GENERAL: This is a well-developed, well-nourished elderly man who is awake, minimally communicative. The patient is in no distress. HEENT: Head atraumatic, normocephalic. Sclerae anicteric. Buccal mucosa dry. NECK: Supple. CHEST: Rise symmetrical. Breath sounds clear, diminished to bases. HEART: S1, S2. ABDOMEN: Soft, bowel sounds present. No suprapubic tenderness. EXTREMITIES: Without cyanosis or edema. DIAGNOSTIC IMPRESSION: This is an 83-year-old man with numerous medical problems admitted with urinary tract infection, currently on appropriate antibiotics. Recommend to keep him on amoxicillin for 7 days. Monitor postvoid residuals and straight cath p.r.n. Discussed with Dr. Palmer who was covering for Dr. Self. Dictated By: GALLITO CUEVAS MANAGER CRITICAL CARE UNIT for [facility] Conf#: [id number] DID#: [id number]
--- NOTE | 2018-09-03 19:20 | PN ---
DATE: 09/03/2018 SUBJECTIVE: Follow up on UTI, pancytopenia, BPH, recent surgery, dementia with behavioral problem. The patient is breathing comfortably on room air. Denies any chest pain. No hematuria. No abdomina l pain. PHYSICAL EXAMINATION: GENERAL: The patient is awake, alert. VITAL SIGNS: Temperature 98.2, pulse 64, respiration 18, blood pressure 104/59, O2 saturation 97% on room air. HEENT: No eye discharge or redness. Conjunctivae and lids are normal. Oropharynx is clear. NECK: Supple, negative for masses or lymph node, thyromegaly. CHEST: Fairly clear. CARDIOVASCULAR: S1, S2 normal. ABDOMEN: Soft, nondistended, nontender. EXTREMITIES: No edema. NEUROLOGIC: The patient is awake, alert, follows simple commands, oriented x1. LABORATORY DATA: Urine culture is growing enterococci sensitive to penicillin IMPRESSION: 1. UTI with recent history of BPH and surgery. We will discontinue Rocephin and start him on amoxic illin. 2. Pancytopenia. We will continue to monitor. The patient has had evaluation by Dr. Carrera in the p ast. 3. BPH status post surgery. No acute issue. 4. Dementia with behavioral disturbance. Continue Aricept, Namenda, Depakote and Zyprexa. The yong ent was seen by psych telehealth and his medications are being adjusted. DISPOSITION: The patient is elopement risk, and therefore, case management has been advised to look for locked facility. Dictated By: MARTA MCGUIRE MD AB/NTS Conf#: [id number] DID#: [id number] CC: MARTA MCGUIRE MD;*EndCC*
[2018-09-03 19:48] VITALS: BP 118/65; PULSE 77; RESP 16
[2018-09-03] MEDS: ATORVASTATIN 20 MG TAB PO SCH (21:04)
[2018-09-03] MEDS: TAMSULOSIN (SR) 0.4 MG CAP PO SCH (21:04)
[2018-09-04 02:03] VITALS: BP 126/60; PULSE 59; RESP 18
[2018-09-04] MEDS: AMOXICILLIN 500 MG CAP PO SCH ×3 (06:26→21:00)
[2018-09-04 07:29] VITALS: BP 129/70; PULSE 73; RESP 18
[2018-09-04] MEDS: DUTASTERIDE 0.5 MG CAP PO SCH (08:08)
[2018-09-04] MEDS: MEMANTINE 10 MG TAB PO SCH (08:08)
[2018-09-04] MEDS: OLANZAPINE 2.5 MG TAB PO SCH ×3 (08:08→20:59)
[2018-09-04] MEDS: ESCITALOPRAM 10 MG TAB PO SCH (08:08)
[2018-09-04] MEDS: BENAZEPRIL 40 MG TAB PO SCH (08:08)
[2018-09-04] MEDS: DIVALPROEX (ER) 250 MG TAB PO SCH ×2 (08:08→20:59)
[2018-09-04] MEDS: FAMOTIDINE 20 MG TAB PO SCH ×2 (08:08→20:58)
[2018-09-04] MEDS: DONEPEZIL 10 MG TAB PO SCH (08:09)
[2018-09-04] MEDS: FERROUS SULFATE (EC) 325 MG TAB PO SCH (08:09)
--- NOTE | 2018-09-04 11:56 | CONS ---
Assessment/Plan Assessment/Plan Hospital Course (Demo Recall) ID PROGRESS NOTE CURRENT ABX: DAY #=> Amoxicillin 09/03 - 09/08 last day 09/02/18 0644 09/02/18 0644 Hx of Present Illness This is a well-developed, elderly man with a history of dementia, hypertension, BPH, thrombocytopenia, status post TURP in 07/[address] Dolan. [facility] with [facility] mental status, agitation and violent behaviors. Urine culture grew enterococcus species susceptible to ampicillin and all the other antibiotics. Blood cultures had been negative. The patient was initially started on Rocephin, but now switched to oral amoxicillin. 24H INTERVAL SUMMARY * Awake, alert, responsive, hard of hearing, tells me he feels "mejor" = "better", no fevers, VSS, without acute distress, no dyspnea on room air IMAGING * 07/19/18 CXR: IMPRESSION:Minimal right lower lobe atelectasis.Cardiomegaly, stable. MICRO/OTHER * 09/01/18 BCX (-) * 09/01/18 Urine Cx (+) Microbiology URINE CULTURE Final Organism 1 ENTEROCOCCUS SPECIES COLONY COUNT 30,000 - 40,000 CFU/ml ENT SPS M.I.C. RX --------- --- AMPICILLIN <=2 S CIPROFLOXACIN <=0.5 S LEVOFLOXACIN 1 S NITROFURANTOIN <=16 S PENICILLIN-G 4 S VANCOMYCIN 1 S PHYSICAL EXAMINATION: GENERAL: VSS, NAD, HEENT: AT, NC, NECK: WNL CHEST: Equal chest rise bilaterally without dyspnea on observation ABD: Soft, ND EXTREMITIES: Warm, dry SKIN: No rash, no diaphoresis ID ASSESSMENT 83 yo M admit with: -Enterococcal UTI -HX of BPH, s/p TURP on 07/21/2018. Dr. Dolan is following in urology consultation. -Possible metabolic encephalopathy secondary to infection -Pancytopenia -Hypertension. -Dementia with behavioral disturbance -Depression (?)MRSA Nares ABX ALLERGIES: NKDA INVASIVES: PIV CURRENT ABX: DAY # =>Amoxicillin 09/03 - 09/08 last day ID RECOMMENDATIONS/PLAN: 1. May DC on current ABX when cleared by primary. . Consultation Date/Type/Reason Admit Date/Time September 02, 2018 at 11:07 Initial Consult Date Date/Time of Note DATE: 09/04/18 TIME: 11:56 Exam/Review of Systems Exam Vitals Vital Signs Date Temp Pulse Resp B/P (MAP) Pulse Ox O2 O2 Flow FiO2 Time Delivery Rate 09/04/18 98.6 73 18 129/70 95 07:29 (89) 09/03/18 Room Air 19:48 Intake and Output 09/03/18 09/03/18 09/04/18 1515:00 23:00 07:00 IntakeIntake Total 1080 ml 840 ml OutputOutput Total 200 ml BalanceBalance 1080 ml 840 ml -200 ml Results Result Diagram: 09/02/1844 09/02/1844 Medications Medication Current Medications Ondansetron HCl (Zofran Inj) 4 mg Q6H PRN IV NAUSEA/VOMITING; Start 09/01/18 at 17:30 Acetaminophen (Tylenol Tab) 650 mg Q6H PRN PO .PAIN 1-3 OR TEMP; Start 09/01/18 at 17:30 Oxycodone/ Acetaminophen (Percocet (5/ 325)) 1 tab Q6H PRN PO .MOD PAIN 4-6; Start 09/01/18 at 17:30 Docusate Sodium (Colace) 100 mg Q12H PRN PO .CONSTIPATION; Start 09/01/18 at 17:30 Bisacodyl (Dulcolax) 5 mg DAILY PRN PO .CONSTIPATION; Start 09/01/18 at 17:30 Famotidine (Pepcid) 20 mg Q12 PO Last administered on 09/04/18at 08:08; Admin Dose 20 MG; Start 09/01/18 at 21:00 Benazepril HCl (Lotensin) 40 mg DAILY PO Last administered on 09/04/18at 08:08; Admin Dose 40 MG; Start 09/02/18 at 09:00 Carvedilol (Coreg) 6.25 mg BID PO Last administered on 09/04/18at 08:09; Admin Dose 6.25 MG; Start 09/01/18 at 21:00 Divalproex Sodium (Depakote Er) 250 mg BID PO Last administered on 09/04/18at 08:08; Admin Dose 250 MG; Start 09/01/18 at 21:00 Donepezil HCl (Aricept) 10 mg DAILY PO Last administered on 09/04/18 08:09; Admin Dose 10 MG; Start 09/02/18 at 09:00 Dutasteride (Avodart) 0.5 mg DAILY PO Last administered on 09/04/18 08:08; Admin Dose 0.5 MG; Start 09/02/18 at 09:00 Escitalopram Oxalate (Lexapro) 5 mg DAILY PO Last administered on 09/04/18 08 :08; Admin Dose 5 MG; Start 09/02/18 at 09:00 Ferrous Sulfate (Ferrous Sulfate (Ec)) 325 mg DAILY PO Last administered on 09/04/18 08:09; Admin Dose 325 MG; Start 09/02/18 at 09:00 Memantine (Namenda) 10 mg DAILY PO Last administered on 09/04/18 08:08; Admin Dose 10 MG; Start 09/02/18 at 09:00 Olanzapine (Zyprexa) 2.5 mg TID PO Last administered on 09/04/18 08:08; Admin Dose 2.5 MG; Start 09/01/18 at 21:00 Tamsulosin HCl (Flomax) 0.4 mg HS PO Last administered on 09/03/18 21:04; Admin Dose 0.4 MG; Start 09/01/18 at 21:00 Atorvastatin Calcium (Lipitor) 20 mg DAILY@21 PO Last administered on 09/03/18 21:04; Admin Dose 20 MG; Start 09/01/18 at 21:00 Amoxicillin (Amoxicillin) 500 mg Q8 PO Last administered on 09/04/18 06:26; Admin Dose 500 MG; Start 09/03/18 at 14:00; Stop 09/08/18 at 13:59 DERICK GARCIA NP September 04, 2018 11:56
[2018-09-04 14:00] VITALS: BP 104/61; PULSE 64; RESP 18
[2018-09-04 20:35] VITALS: BP 156/70; PULSE 62; RESP 18
[2018-09-04] MEDS: ATORVASTATIN 20 MG TAB PO SCH (20:59)
[2018-09-04] MEDS: TAMSULOSIN (SR) 0.4 MG CAP PO SCH (20:59)
--- NOTE | 2018-09-04 21:16 | PN ---
Date/Time of Note Date/Time of Note DATE: 09/04/18 TIME: 21:16 Assessment/Plan VTE Prophylaxis Risk score (from Ns)>0 risk: 4 SCD applied (from [facility]): No SCD contraindicated: other Pharmacological prophylaxis: other Pharm contraindication: other Lines/Catheters IV Catheter Type (from Nrs): Peripheral IV Urinary Cath still in place: No Assessment/Plan Assessment/Plan 1. UTI with recent history of BPH and surgery. We will discontinue Rocephin and start him on amoxicillin. 2. Pancytopenia. We will continue to monitor. The patient has had evaluation by Dr. Carrera in the past. 3. BPH status post surgery. No acute issue. 4. Dementia with behavioral disturbance. Continue Aricept, Namenda, Depakote and Zyprexa. The patient was seen by psych telehealth and his medications are being adjusted. Result Diagram: 09/02/1844 09/02/1844 Exam/Review of Systems Exam Vitals Vital Signs Date Temp Pulse Resp B/P (MAP) Pulse Ox O2 O2 Flow FiO2 Time Delivery Rate 09/04/18 98.0 62 18 156/70 94 20:35 (98) 09/03/18 Room Air 19:48 Intake and Output 09/03/18 09/03/18 09/04/18 1515:00 23:00 07:00 IntakeIntake Total 1080 ml 840 ml OutputOutput Total 200 ml BalanceBalance 1080 ml 840 ml -200 ml Constitutional: alert, well developed, obese Psych: nl mood/affect Eyes: nl lids, nl sclera ENMT: nl external ears & nose Neck: non-tender Respiratory: clear to auscultation Cardiovascular: nl pulses, other (s1s2) Gastrointestinal: soft, non-tender Musculoskeletal: nl extremities to inspection Extremities: normal pulses Neurological: nl speech, other (alert/responsive) Lymph: nontender Medications Medication Current Medications Ondansetron HCl (Zofran Inj) 4 mg Q6H PRN IV NAUSEA/VOMITING; Start 09/01/18 at 17:30 Acetaminophen (Tylenol Tab) 650 mg Q6H PRN PO .PAIN 1-3 OR TEMP; Start 09/01/18 at 17:30 Oxycodone/ Acetaminophen (Percocet (5/ 325)) 1 tab Q6H PRN PO .MOD PAIN 4-6; Start 09/01/18 at 17:30 Docusate Sodium (Colace) 100 mg Q12H PRN PO .CONSTIPATION; Start 09/01/18 at 17:30 Bisacodyl (Dulcolax) 5 mg DAILY PRN PO .CONSTIPATION; Start 09/01/18 at 17:30 Famotidine (Pepcid) 20 mg Q12 PO Last administered on 09/04/18 20:58; Admin Dose 20 MG; Start 09/01/18 at 21:00 Benazepril HCl (Lotensin) 40 mg DAILY PO Last administered on 09/04/18 08:08; Admin Dose 40 MG; Start 09/02/18 at 09:00 Carvedilol (Coreg) 6.25 mg BID PO Last administered on 09/04/18 21:00; Admin Dose 6.25 MG; Start 09/01/18 at 21:00 Divalproex Sodium (Depakote Er) 250 mg BID PO Last administered on 09/04/18 20:59; Admin Dose 250 MG; Start 09/01/18 at 21:00 Donepezil HCl (Aricept) 10 mg DAILY PO Last administered on 09/04/18 08:09; Admin Dose 10 MG; Start 09/02/18 at 09:00 Dutasteride (Avodart) 0.5 mg DAILY PO Last administered on 09/04/18 08:08; Admin Dose 0.5 MG; Start 09/02/18 at 09:00 Escitalopram Oxalate (Lexapro) 5 mg DAILY PO Last administered on 09/04/18 08:08; Admin Dose 5 MG; Start 09/02/18 at 09:00 Ferrous Sulfate (Ferrous Sulfate (Ec)) 325 mg DAILY PO Last administered on 09/04/18 08:09; Admin Dose 325 MG; Start 09/02/18 at 09:00 Memantine (Namenda) 10 mg DAILY PO Last administered on 09/04/18 08:08; Admin Dose 10 MG; Start 09/02/18 at 09:00 Olanzapine (Zyprexa) 2.5 mg TID PO Last administered on 09/04/18 20:59; Admin Dose 2.5 MG; Start 09/01/18 at 21:00 Tamsulosin HCl (Flomax) 0.4 mg HS PO Last administered on 09/04/18 20:59; Admin Dose 0.4 MG; Start 09/01/18 at 21:00 Atorvastatin Calcium (Lipitor) 20 mg DAILY@21 PO Last administered on 09/04/18 20:59; Admin Dose 20 MG; Start 09/01/18 at 21:00 Amoxicillin (Amoxicillin) 500 mg Q8 PO Last administered on 09/04/18 21:00; Admin Dose 500 MG; Start 09/03/18 at 14:00; Stop 09/08/18 at 13:59 FROYLAN ALVAREZ September 04, 2018 21:16
[2018-09-05 02:48] VITALS: BP 145/73; PULSE 76; RESP 18
[2018-09-05] MEDS: AMOXICILLIN 500 MG CAP PO SCH ×3 (05:33→21:50)
[2018-09-05 07:26] VITALS: BP 110/64; PULSE 71; RESP 18
--- NOTE | 2018-09-05 07:47 | PN ---
Date/Time of Note Date/Time of Note DATE: 09/05/18 TIME: 07:47 Assessment/Plan VTE Prophylaxis Risk score (from Ns)>0 risk: 5 SCD applied (from [facility]): No SCD contraindicated: other Pharmacological prophylaxis: other Pharm contraindication: other Lines/Catheters IV Catheter Type (from [facility]): [place] Urinary Cath still in place: No Assessment/Plan Assessment/Plan 1. UTI with recent history of BPH and surgery. We will discontinue Rocephin and start him on amoxicillin. 2. Pancytopenia. We will continue to monitor. The patient has had evaluation by Dr. Carrera in the past. 3. BPH status post surgery. No acute issue. 4. Dementia with behavioral disturbance. Continue Aricept, Namenda, Depakote and Zyprexa. The patient was seen by psych telehealth and his medications are being adjusted. Result Diagram: 09/02/1844 09/02/1844 Results 24hrs Laboratory Tests Test 09/05/18 06:54 White Blood Count Pending Red Blood Count Pending Hemoglobin Pending Hematocrit Pending Mean Corpuscular Volume Pending Mean Corpuscular Hemoglobin Pending Mean Corpuscular Hemoglobin Concent Pending Red Cell Distribution Width Pending Platelet Count Pending Mean Platelet Volume Pending Exam/Review of Systems Exam Vitals Vital Signs Date Temp Pulse Resp B/P (MAP) Pulse Ox O2 O2 Flow FiO2 Time Delivery Rate 09/05/18 98.5 71 18 110/64 91 Room Air 07:26 (79) Intake and Output 09/04/18 09/04/18 09/05/18 1515:00 23:00 07:00 IntakeIntake Total 1600 ml 440 ml BalanceBalance 1600 ml 440 ml Results Results 24hrs Laboratory Tests Test 09/05/18 06:54 White Blood Count Pending Red Blood Count Pending Hemoglobin Pending Hematocrit Pending Mean Corpuscular Volume Pending Mean Corpuscular Hemoglobin Pending Mean Corpuscular Hemoglobin Concent Pending Red Cell Distribution Width Pending Platelet Count Pending Mean Platelet Volume Pending Medications Medication Current Medications Ondansetron HCl (Zofran Inj) 4 mg Q6H PRN IV NAUSEA/VOMITING; Start 09/01/18 at 17:30 Acetaminophen (Tylenol Tab) 650 mg Q6H PRN PO .PAIN 1-3 OR TEMP; Start 09/01/18 at 17:30 Oxycodone/ Acetaminophen (Percocet (5/ 325)) 1 tab Q6H PRN PO .MOD PAIN 4-6 Last administered on 09/05/18 02:49; Admin Dose 1 TAB; Start 09/01/18 at 17:30 Docusate Sodium (Colace) 100 mg Q12H PRN PO .CONSTIPATION; Start 09/01/18 at 17:30 Bisacodyl (Dulcolax) 5 mg DAILY PRN PO .CONSTIPATION; Start 09/01/18 at 17:30 Famotidine (Pepcid) 20 mg Q12 PO Last administered on 09/04/18 20:58; Admin Dose 20 MG; Start 09/01/18 at 21:00 Benazepril HCl (Lotensin) 40 mg DAILY PO Last administered on 09/04/18 08:08; Admin Dose 40 MG; Start 09/02/18 at 09:00 Carvedilol (Coreg) 6.25 mg BID PO Last administered on 09/04/18 21:00; Admin Dose 6.25 MG; Start 09/01/18 at 21:00 Divalproex Sodium (Depakote Er) 250 mg BID PO Last administered on 09/04/18 20:59; Admin Dose 250 MG; Start 09/01/18 at 21:00 Donepezil HCl (Aricept) 10 mg DAILY PO Last administered on 09/04/18 08:09; Admin Dose 10 MG; Start 09/02/18 at 09:00 Dutasteride (Avodart) 0.5 mg DAILY PO Last administered on 09/04/18 08:08; Admin Dose 0.5 MG; Start 09/02/18 at 09:00 Escitalopram Oxalate (Lexapro) 5 mg DAILY PO Last administered on 09/04/18 08:08; Admin Dose 5 MG; Start 09/02/18 at 09:00 Ferrous Sulfate (Ferrous Sulfate (Ec)) 325 mg DAILY PO Last administered on 09/04/18 08:09; Admin Dose 325 MG; Start 09/02/18 at 09:00 Memantine (Namenda) 10 mg DAILY PO Last administered on 09/04/18 08:08; Admin Dose 10 MG; Start 09/02/18 at 09:00 Olanzapine (Zyprexa) 2.5 mg TID PO Last administered on 09/04/18 20:59; Admin Dose 2.5 MG; Start 09/01/18 at 21:00 Tamsulosin HCl (Flomax) 0.4 mg HS PO Last administered on 09/04/18 20:59; Admin Dose 0.4 MG; Start 09/01/18 at 21:00 Atorvastatin Calcium (Lipitor) 20 mg DAILY@21 PO Last administered on 09/04/18 20:59; Admin Dose 20 MG; Start 09/01/18 at 21:00 Amoxicillin (Amoxicillin) 500 mg Q8 PO Last administered on 09/05/18at 05:33; Admin Dose 500 MG; Start 09/03/18 at 14:00; Stop 09/08/18 at 13:59 FROYLAN ALVAREZ September 05, 2018 07:47
[2018-09-05] MEDS: DUTASTERIDE 0.5 MG CAP PO SCH (08:29)
[2018-09-05] MEDS: FERROUS SULFATE (EC) 325 MG TAB PO SCH (08:30)
[2018-09-05] MEDS: OLANZAPINE 2.5 MG TAB PO SCH ×3 (08:30→21:51)
[2018-09-05] MEDS: MEMANTINE 10 MG TAB PO SCH (08:30)
[2018-09-05] MEDS: BENAZEPRIL 40 MG TAB PO SCH (08:30)
[2018-09-05] MEDS: DONEPEZIL 10 MG TAB PO SCH (08:31)
[2018-09-05] MEDS: FAMOTIDINE 20 MG TAB PO SCH ×2 (08:31→21:51)
[2018-09-05] MEDS: ESCITALOPRAM 10 MG TAB PO SCH (08:31)
[2018-09-05] MEDS: DIVALPROEX (ER) 250 MG TAB PO SCH ×2 (08:31→21:50)
[2018-09-05 14:09] VITALS: BP 87/54; PULSE 63; RESP 18
--- NOTE | 2018-09-05 17:43 | CONS ---
Assessment/Plan Assessment/Plan Hospital Course (Demo Recall) ID PROGRESS NOTE CURRENT ABX: DAY #=> Amoxicillin 09/03 - 09/08 last day 24H INTERVAL SUMMARY * NO new issues -- RN reports he prefers to keep his genitalia exposed -- behavior disturbance related to dementia * Awake, alert, responsive, hard of hearing, tells me he feels "mejor" = "better", no fevers, VSS, without acute distress, no dyspnea on room air IMAGING * 07/19/18 CXR: IMPRESSION:Minimal right lower lobe atelectasis.Cardiomegaly, stable. MICRO/OTHER * 09/01/18 BCX (-) * 09/01/18 Urine Cx (+) Microbiology URINE CULTURE Final Organism 1 ENTEROCOCCUS SPECIES COLONY COUNT 30,000 - 40,000 CFU/ml ENT SPS M.I.C. RX --------- --- AMPICILLIN <=2 S CIPROFLOXACIN <=0.5 S LEVOFLOXACIN 1 S NITROFURANTOIN <=16 S PENICILLIN-G 4 S VANCOMYCIN 1 S PHYSICAL EXAMINATION: GENERAL: VSS, NAD, HEENT: AT, NC, NECK: WNL CHEST: Equal chest rise bilaterally without dyspnea on observation ABD: Soft, ND EXTREMITIES: Warm, dry SKIN: No rash, no diaphoresis ID ASSESSMENT 83 yo M admit with: -Enterococcal UTI -HX of BPH, s/p TURP on 07/21/2018. Dr. Dolan is following in urology consultation. -Possible metabolic encephalopathy secondary to infection -Pancytopenia -Hypertension. -Dementia with behavioral disturbance -Depression (?)MRSA Nares ABX ALLERGIES: NKDA INVASIVES: PIV CURRENT ABX: DAY # =>Amoxicillin 09/03 - 09/08 last day ID RECOMMENDATIONS/PLAN: 1. May DC on current ABX when cleared by primary. . Consultation Date/Type/Reason Admit Date/Time September 02, 2018 at 11:07 Initial Consult Date Date/Time of Note DATE: 09/05/18 TIME: 17:41 Exam/Review of Systems Exam Vitals Vital Signs Date Temp Pulse Resp B/P (MAP) Pulse Ox O2 O2 Flow FiO2 Time Delivery Rate 09/05/18 98.2 63 18 87/54 (65) 93 Room Air 14:09 Intake and Output 09/04/18 09/04/1819 1515:00 23:00 07:00 IntakeIntake Total 1600 ml 440 ml BalanceBalance 1600 ml 440 ml Results Result Diagram: 09/05/18 0654 09/05/18 0654 Results 24hrs Laboratory Tests Test 09/05/18 06:54 White Blood Count 3.0 L Red Blood Count 4.18 L Hemoglobin 9.8 L Hematocrit 32.5 L Mean Corpuscular Volume 77.8 L Mean Corpuscular Hemoglobin 23.4 L Mean Corpuscular Hemoglobin Concent 30.2 L Red Cell Distribution Width 17.5 H Platelet Count 137 L Mean Platelet Volume 10.9 H Immature Granulocytes % 0.300 Neutrophils % 19.2 L Lymphocytes % 61.5 H Monocytes % 16.4 H Eosinophils % 2.3 Basophils % 0.3 Nucleated Red Blood Cells % 0.0 Immature Granulocytes # 0.010 Neutrophils # 0.6 L Lymphocytes # 1.9 Monocytes # 0.5 Eosinophils # 0.1 Basophils # 0.0 Nucleated Red Blood Cells # 0.0 Sodium Level 143 Potassium Level 3.9 Chloride Level 108 Carbon Dioxide Level 27 Anion Gap 8 Blood Urea Nitrogen 15 Creatinine 0.68 Est Glomerular Filtrat Rate mL/min Glucose Level 104 Calcium Level 8.7 Medications Medication Current Medications Ondansetron HCl (Zofran Inj) 4 mg Q6H PRN IV NAUSEA/VOMITING; Start 09/01/18 at 17:30 Acetaminophen (Tylenol Tab) 650 mg Q6H PRN PO .PAIN 1-3 OR TEMP; Start 09/01/18 at 17:30 Oxycodone/ Acetaminophen (Percocet (5/ 325)) 1 tab Q6H PRN PO .MOD PAIN 4-6 Last administered on 09/05/18at 02:49; Admin Dose 1 TAB; Start 09/01/18 at 17:30 Docusate Sodium (Colace) 100 mg Q12H PRN PO .CONSTIPATION; Start 09/01/18 at 17:30 Bisacodyl (Dulcolax) 5 mg DAILY PRN PO .CONSTIPATION; Start 09/01/18 at 17:30 Famotidine (Pepcid) 20 mg Q12 PO Last administered on 09/05/18at 08:31; Admin Dose 20 MG; Start 09/01/18 at 21:00 Benazepril HCl (Lotensin) 40 mg DAILY PO Last administered on 09/05/18 08:30; Admin Dose 40 MG; Start 09/02/18 at 09:00 Carvedilol (Coreg) 6.25 mg BID PO Last administered on 09/05/18 08:30; Admin Dose 6.25 MG; Start 09/01/18 at 21:00 Divalproex Sodium (Depakote Er) 250 mg BID PO Last administered on 09/05/18 08:31; Admin Dose 250 MG; Start 09/01/18 at 21:00 Donepezil HCl (Aricept) 10 mg DAILY PO Last administered on 09/05/18 08:31; Admin Dose 10 MG; Start 09/02/18 at 09:00 Dutasteride (Avodart) 0.5 mg DAILY PO Last administered on 09/05/18 08:29; Admin Dose 0.5 MG; Start 09/02/18 at 09:00 Escitalopram Oxalate (Lexapro) 5 mg DAILY PO Last administered on 09/05/18 08:31; Admin Dose 5 MG; Start 09/02/18 at 09:00 Ferrous Sulfate (Ferrous Sulfate (Ec)) 325 mg DAILY PO Last administered on 09/05/18 08:30; Admin Dose 325 MG; Start 09/02/18 at 09:00 Memantine (Namenda) 10 mg DAILY PO Last administered on 09/05/18 08:30; Admin Dose 10 MG; Start 09/02/18 at 09:00 Olanzapine (Zyprexa) 2.5 mg TID PO Last administered on 09/05/18 14:02; Admin Dose 2.5 MG; Start 09/01/18 at 21:00 Tamsulosin HCl (Flomax) 0.4 mg HS PO Last administered on 09/04/18 20:59; Admin Dose 0.4 MG; Start 09/01/18 at 21:00 Atorvastatin Calcium (Lipitor) 20 mg DAILY@21 PO Last administered on 09/04/18 20:59; Admin Dose 20 MG; Start 09/01/18 at 21:00 Amoxicillin (Amoxicillin) 500 mg Q8 PO Last administered on 09/05/18 14:02; Admin Dose 500 MG; Start 09/03/18 at 14:00; Stop 09/08/18 at 13:59 DERICK GARCIA NP September 05, 2018 17:43
[2018-09-05 19:33] VITALS: BP 111/58; PULSE 75; RESP 16
[2018-09-05] MEDS: ATORVASTATIN 20 MG TAB PO SCH (21:50)
[2018-09-05] MEDS: TAMSULOSIN (SR) 0.4 MG CAP PO SCH (21:51)
[2018-09-06 01:55] VITALS: BP 110/55; PULSE 73; RESP 16
[2018-09-06] MEDS: AMOXICILLIN 500 MG CAP PO SCH ×3 (06:21→22:00)
[2018-09-06 07:44] VITALS: BP 114/61; PULSE 69; RESP 18
[2018-09-06] MEDS: MEMANTINE 10 MG TAB PO SCH (08:58)
[2018-09-06] MEDS: DUTASTERIDE 0.5 MG CAP PO SCH (08:58)
[2018-09-06] MEDS: ESCITALOPRAM 10 MG TAB PO SCH (08:59)
[2018-09-06] MEDS: DIVALPROEX (ER) 250 MG TAB PO SCH ×2 (08:59→22:00)
[2018-09-06] MEDS: FERROUS SULFATE (EC) 325 MG TAB PO SCH (08:59)
[2018-09-06] MEDS: FAMOTIDINE 20 MG TAB PO SCH ×2 (08:59→22:00)
[2018-09-06] MEDS: BENAZEPRIL 40 MG TAB PO SCH (08:59)
[2018-09-06] MEDS: OLANZAPINE 2.5 MG TAB PO SCH ×3 (08:59→22:00)
[2018-09-06] MEDS: DONEPEZIL 10 MG TAB PO SCH (09:07)
[2018-09-06 14:14] VITALS: BP 112/56; PULSE 72; RESP 18
--- NOTE | 2018-09-06 17:08 | CONS ---
Assessment/Plan Assessment/Plan Hospital Course (Demo Recall) ID PROGRESS NOTE CURRENT ABX: DAY #=> Amoxicillin 09/03 - 09/08 last day 24H INTERVAL SUMMARY * Patient is confused now on NEUTROPENIC PRECAUTIONS INITIATED -- Tmax 99.0 * Yesterday RN reports he prefers to keep his genitalia exposed -- behavior disturbance related to dementia * Awake, alert, responsive, hard of hearing, tells me he feels "mejor" = "better", no fevers, VSS, without acute distress, no dyspnea on room air IMAGING * 07/19/18 CXR: IMPRESSION:Minimal right lower lobe atelectasis.Cardiomegaly, stable. MICRO/OTHER * 09/01/18 BCX (-) * 09/01/18 Urine Cx (+) Microbiology URINE CULTURE Final Organism 1 ENTEROCOCCUS SPECIES COLONY COUNT 30,000 - 40,000 CFU/ml ENT SPS M.I.C. RX --------- --- AMPICILLIN <=2 S CIPROFLOXACIN <=0.5 S LEVOFLOXACIN 1 S NITROFURANTOIN <=16 S PENICILLIN-G 4 S VANCOMYCIN 1 S PHYSICAL EXAMINATION: GENERAL: VSS, NAD, HEENT: AT, NC, NECK: WNL CHEST: Equal chest rise bilaterally without dyspnea on observation ABD: Soft, ND EXTREMITIES: Warm, dry SKIN: No rash, no diaphoresis ID ASSESSMENT 83 yo M admit with: -Enterococcal UTI -HX of BPH, s/p TURP on 07/21/2018. Dr. Dolan is following in urology consultation. -Possible metabolic encephalopathy secondary to infection -Pancytopenia -Hypertension. -Dementia with behavioral disturbance -Depression (?)MRSA Nares ABX ALLERGIES: NKDA INVASIVES: PIV CURRENT ABX: DAY # =>Amoxicillin 09/03 - 09/08 last day ID RECOMMENDATIONS/PLAN: 1. May DC on current ABX when cleared by primary. . Consultation Date/Type/Reason Admit Date/Time September 02, 2018 at 11:07 Initial Consult Date Date/Time of Note DATE: 09/06/18 TIME: 17:07 Exam/Review of Systems Exam Vitals Vital Signs Date Temp Pulse Resp B/P (MAP) Pulse Ox O2 O2 Flow FiO2 Time Delivery Rate 09/06/18 98.7 72 18 112/56 94 Room Air 14:14 (74) Intake and Output 09/05/18 09/05/18 09/06/18 1515:00 23:00 07:00 IntakeIntake Total 64 ml OutputOutput Total 325 ml BalanceBalance 64 ml -325 ml Results Result Diagram: 09/05/18 0654 09/05/18 0654 Medications Medication Current Medications Ondansetron HCl (Zofran Inj) 4 mg Q6H PRN IV NAUSEA/VOMITING; Start 09/01/18 at 17:30 Acetaminophen (Tylenol Tab) 650 mg Q6H PRN PO .PAIN 1-3 OR TEMP; Start 09/01/18 at 17:30 Oxycodone/ Acetaminophen (Percocet (5/ 325)) 1 tab Q6H PRN PO .MOD PAIN 4-6 Last administered on 09/05/18at 02:49; Admin Dose 1 TAB; Start 09/01/18 at 17:30 Docusate Sodium (Colace) 100 mg Q12H PRN PO .CONSTIPATION; Start 09/01/18 at 17:30 Bisacodyl (Dulcolax) 5 mg DAILY PRN PO .CONSTIPATION; Start 09/01/18 at 17:30 Famotidine (Pepcid) 20 mg Q12 PO Last administered on 09/06/18 08:59; Admin Dose 20 MG; Start 09/01/18 at 21:00 Benazepril HCl (Lotensin) 40 mg DAILY PO Last administered on 09/06/18 08:59; Admin Dose 40 MG; Start 09/02/18 at 09:00 Carvedilol (Coreg) 6.25 mg BID PO Last administered on 09/06/18at 09:00; Admin Dose 6.25 MG; Start 09/01/18 at 21:00 Divalproex Sodium (Depakote Er) 250 mg BID PO Last administered on 09/06/18 08:59; Admin Dose 250 MG; Start 09/01/18 at 21:00 Donepezil HCl (Aricept) 10 mg DAILY PO Last administered on 09/06/18 09:07; Admin Dose 10 MG; Start 09/02/18 at 09:00 Dutasteride (Avodart) 0.5 mg DAILY PO Last administered on 09/06/18 08:58; Admin Dose 0.5 MG; Start 09/02/18 at 09:00 Escitalopram Oxalate (Lexapro) 5 mg DAILY PO Last administered on 09/06/18 08:59; Admin Dose 5 MG; Start 09/02/18 at 09:00 Ferrous Sulfate (Ferrous Sulfate (Ec)) 325 mg DAILY PO Last administered on 09/06/18 08:59; Admin Dose 325 MG; Start 09/02/18 at 09:00 Memantine (Namenda) 10 mg DAILY PO Last administered on 09/06/18 08:58; Admin Dose 10 MG; Start 09/02/18 at 09:00 Olanzapine (Zyprexa) 2.5 mg TID PO Last administered on 09/06/18 13:00; Admin Dose 2.5 MG; Start 09/01/18 at 21:00 Tamsulosin HCl (Flomax) 0.4 mg HS PO Last administered on 09/05/18 21:51; Admin Dose 0.4 MG; Start 09/01/18 at 21:00 Atorvastatin Calcium (Lipitor) 20 mg DAILY@21 PO Last administered on 09/05/18 21:50; Admin Dose 20 MG; Start 09/01/18 at 21:00 Amoxicillin (Amoxicillin) 500 mg Q8 PO Last administered on 09/06/18 13:01; Admin Dose 500 MG; Start 09/03/18 at 14:00; Stop 09/08/18 at 13:59 DERICK GARCIA NP September 06, 2018 17:08
--- NOTE | 2018-09-06 18:55 | PN ---
Date/Time of Note Date/Time of Note DATE: 09/06/18 TIME: 18:55 Assessment/Plan VTE Prophylaxis Risk score (from Ns)>0 risk: 5 SCD applied (from [facility] [place]): Yes Pharmacological prophylaxis: NA/contraindicated Pharm contraindication: bleeding Lines/Catheters [facility]from [facility] Saline Lock Urinary Cath still in place: No Assessment/Plan Hospital Course Patient is awake, alert to name, otherwise confused, remains hemodynamically stable, able to void, no hematuria per RN. Assessment/Plan -Cystitis. F/up on final urine culture, continue broad-spectrum antibiotic. Dr. Self is following in infection disease consultation. -Possible metabolic encephalopathy secondary to infection -Pancytopenia -Dementia with behavioral disturbance. Continue Aricept, Namenda, Zyprexa. psychiatric consult is appreciated. -HX of BPH, s/p TURP on 07/21/2018. Dr. Dolan is following in urology consultation. -Preserved ejection fraction per recent echo -Hypertension. Continue Lotensin. -Depression. Continue Lexapro. Further recommendations based on clinical course. Plan of care discussed with Dr. Becker. Result Diagram: 09/05/18 0654 09/05/18 0654 Exam/Review of Systems Exam Vitals Vital Signs Date Temp Pulse Resp B/P (MAP) Pulse Ox O2 O2 Flow FiO2 Time Delivery Rate 09/06/18 98.7 72 18 112/56 94 Room Air 14:14 (74) Intake and Output 09/05/18 09/05/18 09/06/18 1515:00 23:00 07:00 IntakeIntake Total 64 ml OutputOutput Total 325 ml BalanceBalance 64 ml -325 ml Exam Constitutional: alert, oriented Respiratory: clear to auscultation Cardiovascular: nl pulses Gastrointestinal: soft, non-tender Extremities: normal pulses Neurological: nl mental status Skin: nl turgor Medications Medication Current Medications Ondansetron HCl (Zofran Inj) 4 mg Q6H PRN IV NAUSEA/VOMITING; Start 09/01/18 at 17:30 Acetaminophen (Tylenol Tab) 650 mg Q6H PRN PO .PAIN 1-3 OR TEMP; Start 09/01/18 at 17:30 Oxycodone/ Acetaminophen (Percocet (5/ 325)) 1 tab Q6H PRN PO .MOD PAIN 4-6 Last administered on 09/05/18 02:49; Admin Dose 1 TAB; Start 09/01/18 at 17:30 Docusate Sodium (Colace) 100 mg Q12H PRN PO .CONSTIPATION; Start 09/01/18 at 17:30 Bisacodyl (Dulcolax) 5 mg DAILY PRN PO .CONSTIPATION; Start 09/01/18 at 17:30 Famotidine (Pepcid) 20 mg Q12 PO Last administered on 09/06/18 08:59; Admin Dose 20 MG; Start 09/01/18 at 21:00 Benazepril HCl (Lotensin) 40 mg DAILY PO Last administered on 09/06/18 08:59; Admin Dose 40 MG; Start 09/02/18 at 09:00 Carvedilol (Coreg) 6.25 mg BID PO Last administered on 09/06/18 09:00; Admin Dose 6.25 MG; Start 09/01/18 at 21:00 Divalproex Sodium (Depakote Er) 250 mg BID PO Last administered on 09/06/18 08:59; Admin Dose 250 MG; Start 09/01/18 at 21:00 Donepezil HCl (Aricept) 10 mg DAILY PO Last administered on 09/06/18 09:07; Admin Dose 10 MG; Start 09/02/18 at 09:00 Dutasteride (Avodart) 0.5 mg DAILY PO Last administered on 09/06/18 08:58; Admin Dose 0.5 MG; Start 09/02/18 at 09:00 Escitalopram Oxalate (Lexapro) 5 mg DAILY PO Last administered on 09/06/18 08:59; Admin Dose 5 MG; Start 09/02/18 at 09:00 Ferrous Sulfate (Ferrous Sulfate (Ec)) 325 mg DAILY PO Last administered on 09/06/18 08:59; Admin Dose 325 MG; Start 09/02/18 at 09:00 Memantine (Namenda) 10 mg DAILY PO Last administered on 09/06/18 08:58; Admin Dose 10 MG; Start 09/02/18 at 09:00 Olanzapine (Zyprexa) 2.5 mg TID PO Last administered on 09/06/18 13:00; Admin Dose 2.5 MG; Start 09/01/18 at 21:00 Tamsulosin HCl (Flomax) 0.4 mg HS PO Last administered on 09/05/18at 21:51; Admin Dose 0.4 MG; Start 09/01/18 at 21:00 Atorvastatin Calcium (Lipitor) 20 mg DAILY@21 PO Last administered on 09/05/18at 21:50; Admin Dose 20 MG; Start 09/01/18 at 21:00 Amoxicillin (Amoxicillin) 500 mg Q8 PO Last administered on 09/06/18at 13:01; Admin Dose 500 MG; Start 09/03/18 at 14:00; Stop 09/08/18 at 13:59 JOYCE CHOW September 06, 2018 18:55
[2018-09-06 19:36] VITALS: BP 102/58; PULSE 75; RESP 18
[2018-09-06] MEDS: ATORVASTATIN 20 MG TAB PO SCH (22:00)
[2018-09-06] MEDS: TAMSULOSIN (SR) 0.4 MG CAP PO SCH (22:00)
[2018-09-07 02:06] VITALS: BP 127/64; PULSE 73; RESP 18
[2018-09-07] MEDS: AMOXICILLIN 500 MG CAP PO SCH ×3 (06:37→20:31)
[2018-09-07 08:00] VITALS: BP 103/72; PULSE 66; RESP 18
[2018-09-07 09:38] VITALS: BP 120/65; PULSE 64
[2018-09-07] MEDS: MEMANTINE 10 MG TAB PO SCH (09:38)
[2018-09-07] MEDS: FERROUS SULFATE (EC) 325 MG TAB PO SCH (09:38)
[2018-09-07] MEDS: DIVALPROEX (ER) 250 MG TAB PO SCH ×2 (09:38→20:30)
[2018-09-07] MEDS: OLANZAPINE 2.5 MG TAB PO SCH ×3 (09:38→20:30)
[2018-09-07] MEDS: ESCITALOPRAM 10 MG TAB PO SCH (09:38)
[2018-09-07] MEDS: DUTASTERIDE 0.5 MG CAP PO SCH (09:38)
[2018-09-07] MEDS: FAMOTIDINE 20 MG TAB PO SCH ×2 (09:39→20:29)
[2018-09-07] MEDS: BENAZEPRIL 40 MG TAB PO SCH (09:39)
[2018-09-07] MEDS: DONEPEZIL 10 MG TAB PO SCH (09:39)
--- NOTE | 2018-09-07 13:52 | CONS ---
Assessment/Plan Assessment/Plan Hospital Course (Demo Recall) No acute events overnight patient is alert feels good denies pain no fevers overnight vital signs stable Antimicrobials: Amoxicillin Physical examination: Well-developed well-nourished elderly man who is awake in no distress head atraumatic normocephalic sclera nonicteric neck is zapien pple chest rise symmetrical breath sounds clear heart S1-S2 abdomen soft bowel sounds present extremities without cyanosis Assessment: 1. Enterococcal UTI 2. Dementia 3. Status post acute encephalopathy 4. History of BPH status post TURP Plan: Patient remains stable completing antibiotic course Consultation Date/Type/Reason Admit Date/Time September 02, 2018 at 11:07 Initial Consult Date Type of Consult id Date/Time of Note DATE: 09/07/18 TIME: 13:50 Exam/Review of Systems Exam Vitals Vital Signs Date Temp Pulse Resp B/P (MAP) Pulse Ox O2 O2 Flow FiO2 Time Delivery Rate 09/07/18 64 120/65 09:38 (83) 09/07/18 97.9 18 94 08:00 09/06/18 Room Air 14:14 Intake and Output 09/06/18 09/06/18 09/07/18 1515:00 23:00 07:00 IntakeIntake Total 620 ml BalanceBalance 620 ml Results Result Diagram: 09/05/18 0654 09/05/18 0654 Medications Medication Current Medications Ondansetron HCl (Zofran Inj) 4 mg Q6H PRN IV NAUSEA/VOMITING; Start 09/01/18 at 17:30 Acetaminophen (Tylenol Tab) 650 mg Q6H PRN PO .PAIN 1-3 OR TEMP; Start 09/01/18 at 17:30 Oxycodone/ Acetaminophen (Percocet (5/ 325)) 1 tab Q6H PRN PO .MOD PAIN 4-6 Last administered on 09/05/18at 02:49; Admin Dose 1 TAB; Start 09/01/18 at 17:30 Docusate Sodium (Colace) 100 mg Q12H PRN PO .CONSTIPATION; Start 09/01/18 at 17:30 Bisacodyl (Dulcolax) 5 mg DAILY PRN PO .CONSTIPATION; Start 09/01/18 at 17:30 Famotidine (Pepcid) 20 mg Q12 PO Last administered on 09/07/18at 09:39; Admin Dose 20 MG; Start 09/01/18 at 21:00 Benazepril HCl (Lotensin) 40 mg DAILY PO Last administered on 09/07/18 09:39; Admin Dose 40 MG; Start 09/02/18 at 09:00 Carvedilol (Coreg) 6.25 mg BID PO Last administered on 09/07/18 09:39; Admin Dose 6.25 MG; Start 09/01/18 at 21:00 Divalproex Sodium (Depakote Er) 250 mg BID PO Last administered on 09/07/18 09:38; Admin Dose 250 MG; Start 09/01/18 at 21:00 Donepezil HCl (Aricept) 10 mg DAILY PO Last administered on 09/07/18 09:39; Admin Dose 10 MG; Start 09/02/18 at 09:00 Dutasteride (Avodart) 0.5 mg DAILY PO Last administered on 09/07/18 09:38; Admin Dose 0.5 MG; Start 09/02/18 at 09:00 Escitalopram Oxalate (Lexapro) 5 mg DAILY PO Last administered on 09/07/18 09:38; Admin Dose 5 MG; Start 09/02/18 at 09:00 Ferrous Sulfate (Ferrous Sulfate (Ec)) 325 mg DAILY PO Last administered on 09/07/18 09:38; Admin Dose 325 MG; Start 09/02/18 at 09:00 Memantine (Namenda) 10 mg DAILY PO Last administered on 09/07/18 09:38; Admin Dose 10 MG; Start 09/02/18 at 09:00 Olanzapine (Zyprexa) 2.5 mg TID PO Last administered on 09/07/18 13:07; Admin Dose 2.5 MG; Start 09/01/18 at 21:00 Tamsulosin HCl (Flomax) 0.4 mg HS PO Last administered on 09/06/18 22:00; Admin Dose 0.4 MG; Start 09/01/18 at 21:00 Atorvastatin Calcium (Lipitor) 20 mg DAILY@21 PO Last administered on 09/06/18 22:00; Admin Dose 20 MG; Start 09/01/18 at 21:00 Amoxicillin (Amoxicillin) 500 mg Q8 PO Last administered on 5/28/19at 13:07; Ad min Dose 500 MG; Start 09/03/18 at 14:00; Stop 09/08/18 at 13:59 GALLITO CUEVAS NP September 07, 2018 13:52
[2018-09-07 14:00] VITALS: BP 139/67; PULSE 65; RESP 18
--- NOTE | 2018-09-07 16:43 | PN ---
Date/Time of Note Date/Time of Note DATE: 09/07/18 TIME: 16:42 Assessment/Plan VTE Prophylaxis Risk score (from [facility] [place])>0 risk: 5 SCD applied (from [facility] [place]): Yes Pharmacological prophylaxis: NA/contraindicated Pharm contraindication: thrombocytopenia Lines/Catheters [facility] Saline Lock Urinary Cath still in place: No Assessment/Plan Hospital Course Patient with pancytopenia, continue neutropenic precaution, patient's continues on antibiotics for urinary tract infection. Patient demented however is not aggressive or agitated. Assessment/Plan -Cystitis. F/up on final urine culture, continue broad-spectrum antibiotic. Dr Nathaly Self is following in infection disease consultation. -Possible metabolic encephalopathy secondary to infection -Pancytopenia -Dementia with behavioral disturbance. Continue Aricept, Namenda, Zyprexa. psychiatric consult is appreciated. -HX of BPH, s/p TURP on 07/21/2018. Dr. Dolan is following in urology consultation. -Preserved ejection fraction per recent echo -Hypertension. Continue Lotensin. -Depression. Continue Lexapro. Further recommendations based on clinical course. Plan of care discussed with Dr. Becker. Result Diagram: 09/05/18 0654 09/05/18 0654 Exam/Review of Systems Exam Vitals Vital Signs Date Temp Pulse Resp B/P (MAP) Pulse Ox O2 O2 Flow FiO2 Time Delivery Rate 09/07/18 98.0 65 18 139/67 96 14:00 (91) 09/06/18 Room Air 14:14 Intake and Output 09/06/18 09/06/18 09/07/18 1515:00 23:00 07:00 IntakeIntake Total 620 ml BalanceBalance 620 ml Exam Constitutional: alert, oriented Respiratory: clear to auscultation Cardiovascular: nl pulses Gastrointestinal: soft, non-tender Extremities: normal pulses Neurological: nl mental status Skin: nl turgor Medications Medication Current Medications Ondansetron HCl (Zofran Inj) 4 mg Q6H PRN IV NAUSEA/VOMITING; Start 09/01/18 at 17:30 Acetaminophen (Tylenol Tab) 650 mg Q6H PRN PO .PAIN 1-3 OR TEMP; Start 09/01/18 at 17:30 Oxycodone/ Acetaminophen (Percocet (5/ 325)) 1 tab Q6H PRN PO .MOD PAIN 4-6 Last administered on 09/05/18 02:49; Admin Dose 1 TAB; Start 09/01/18 at 17:30 Docusate Sodium (Colace) 100 mg Q12H PRN PO .CONSTIPATION; Start 09/01/18 at 17:30 Bisacodyl (Dulcolax) 5 mg DAILY PRN PO .CONSTIPATION; Start 09/01/18 at 17:30 Famotidine (Pepcid) 20 mg Q12 PO Last administered on 09/07/18 09:39; Admin Dose 20 MG; Start 09/01/18 at 21:00 Benazepril HCl (Lotensin) 40 mg DAILY PO Last administered on 09/07/18 09:39; Admin Dose 40 MG; Start 09/02/18 at 09:00 Carvedilol (Coreg) 6.25 mg BID PO Last administered on 09/07/18 09:39; Admin Dose 6.25 MG; Start 09/01/18 at 21:00 Divalproex Sodium (Depakote Er) 250 mg BID PO Last administered on 09/07/18 09:38; Admin Dose 250 MG; Start 09/01/18 at 21:00 Donepezil HCl (Aricept) 10 mg DAILY PO Last administered on 09/07/18 09:39; Admin Dose 10 MG; Start 09/02/18 at 09:00 Dutasteride (Avodart) 0.5 mg DAILY PO Last administered on 09/07/18 09:38; Admin Dose 0.5 MG; Start 09/02/18 at 09:00 Escitalopram Oxalate (Lexapro) 5 mg DAILY PO Last administered on 09/07/18 09:38; Admin Dose 5 MG; Start 09/02/18 at 09:00 Ferrous Sulfate (Ferrous Sulfate (Ec)) 325 mg DAILY PO Last administered on 09/07/18 09:38; Admin Dose 325 MG; Start 09/02/18 at 09:00 Memantine (Namenda) 10 mg DAILY PO Last administered on 09/07/18 09:38; Admin Dose 10 MG; Start 09/02/18 at 09:00 Olanzapine (Zyprexa) 2.5 mg TID PO Last administered on 09/07/18 13:07; Admin Dose 2.5 MG; Start 09/01/18 at 21:00 Tamsulosin HCl (Flomax) 0.4 mg HS PO Last administered on 09/06/18at 22:00; Admin Dose 0.4 MG; Start 09/01/18 at 21:00 Atorvastatin Calcium (Lipitor) 20 mg DAILY@21 PO Last administered on 09/06/18at 22:00; Admin Dose 20 MG; Start 09/01/18 at 21:00 Amoxicillin (Amoxicillin) 500 mg Q8 PO Last administered on 09/07/18at 13:07; Admin Dose 500 MG; Start 09/03/18 at 14:00; Stop 09/08/18 at 13:59 JOYCE CHOW September 07, 2018 16:43
[2018-09-07 20:28] VITALS: BP 109/58; PULSE 73; RESP 18
[2018-09-07] MEDS: ATORVASTATIN 20 MG TAB PO SCH (20:29)
[2018-09-07] MEDS: TAMSULOSIN (SR) 0.4 MG CAP PO SCH (20:30)
[2018-09-08 02:14] VITALS: BP 106/60; PULSE 69; RESP 18
[2018-09-08] MEDS: AMOXICILLIN 500 MG CAP PO SCH (05:42)
[2018-09-08 07:53] VITALS: BP 107/60; PULSE 76; RESP 18
[2018-09-08] MEDS: FAMOTIDINE 20 MG TAB PO SCH ×2 (08:53→20:20)
[2018-09-08] MEDS: MEMANTINE 10 MG TAB PO SCH (08:53)
[2018-09-08] MEDS: OLANZAPINE 2.5 MG TAB PO SCH ×3 (08:53→20:19)
[2018-09-08] MEDS: DUTASTERIDE 0.5 MG CAP PO SCH (08:53)
[2018-09-08] MEDS: FERROUS SULFATE (EC) 325 MG TAB PO SCH (08:54)
[2018-09-08] MEDS: DIVALPROEX (ER) 250 MG TAB PO SCH ×2 (08:54→20:19)
[2018-09-08] MEDS: ESCITALOPRAM 10 MG TAB PO SCH (08:54)
[2018-09-08] MEDS: BENAZEPRIL 40 MG TAB PO SCH (08:54)
[2018-09-08] MEDS: DONEPEZIL 10 MG TAB PO SCH (08:55)
--- NOTE | 2018-09-08 12:02 | CONS ---
Assessment/Plan Assessment/Plan Hospital Course (Demo Recall) pleasant 83 yo with multiple medical problems admitted with UTI who we are asked to see for mild pancytopenia he has microcytosis overall his counts are stable to slightly improved since admission suspect his pancytopenia due to underlying infection check iron, B12, folate, SPEP check fibrinogen and coags to r/o DIC neutropenic precautions await on GCSF for now until above w/u is back Consultation Date/Type/Reason Admit Date/Time September 02, 2018 at 11:07 Date/Time of Note DATE: 09/08/18 TIME: 12:01 Hx of Present Illness The patient is a 82-year-old male with history of dementia with behavioral disturbances, hypertension, BPH, osteoporosis, thrombocytopenia, status post TURP in July [address] Dolan. Patient was brought from nursing home facility for altered mental status with agitation, inappropriate and sometimes violent behavior towards staff. Patient is awake alert however cannot provide any detailed medical history due to dementia. Patient urinalysis is indicative of urinary tract infection. Patient is diagnosed with cystitis and started on broad-spectrum antibiotics. Of note we are asked to see pt for labs showing pancytopenia: Laboratory Tests Test 09/08/18 06:39 Blood Urea Nitrogen 14 mg/dl Carbon Dioxide Level 27 mmol/L Chloride Level 109 mmol/L Creatinine 0.73 mg/dl Glucose Level 102 mg/dl Hematocrit 34.5 % Hemoglobin 10.3 g/dl Platelet Count 129 10^3/UL Potassium Level 4.1 mmol/L Sodium Level 143 mmol/L White Blood Count 2.9 10^3/ul Subjective hx not possible: pt non-verbal Constitutional: no complaints, improved Eyes: no complaints ENT: no complaints Respiratory: no complaints Cardiovascular: no complaints Gastrointestinal: no complaints Genitourinary: no complaints Skin: no complaints Neurologic: no complaints; No confusion, No dizziness, No focal-weakness, No headache, No syncope, No seizure, No other Lymphatic: no complaints Past Medical History Medical History: hypertension Home Meds Reported Medications Omeprazole* (Omeprazole*) 20 Mg Capsule., 20 MG PO DAILY, #30 CAP 09/01/18 Olanzapine* (Zyprexa*) 2.5 Mg Tablet, 2.5 MG PO TID, #30 TAB 09/01/18 Acetaminophen* (Tylenol*) 325 Mg Tablet, 650 MG PO Q6H PRN for PAIN LEVEL 1-5, TAB AND FEVER>102F 07/19/18 Divalproex Sodium* (Depakote ER*) 250 Mg Tabsr, 250 MG PO BID, #30 TAB.SA 07/19/18 Tramadol Hcl* (Ultram*) 50 Mg Tablet, 50 MG PO Q6H PRN for PAIN 5-10/10, TAB 07/19/18 Ferrous Sulfate* (Ferrous Sulfate*) 325 Mg Tabec, 325 MG PO DAILY, TAB 07/01/18 Simvastatin* (Zocor*) 40 Mg Tablet, 40 MG PO QHS, #30 TAB 05/13/18 Memantine* (Namenda*) 10 Mg Tablet, 10 MG PO DAILY, #30 TAB 05/13/18 Benazepril Hcl* (Lotensin*) 40 Mg Tablet, 40 MG PO DAILY, #30 TAB HOLD FOR SBP<110 OR NC<60 05/13/18 Escitalopram Oxalate* (Lexapro*) 5 Mg Tablet, 5 MG PO DAILY, #30 TAB 05/13/18 Tamsulosin Hcl* (Flomax*) 0.4 Mg Cap.er.24h, 0.4 MG PO HS, CAP 05/13/18 Carvedilol* (Coreg*) 6.25 Mg Tablet, 6.25 MG PO BID, #60 TAB HOLD FOR SBP<110 OR NC<60 05/13/18 Cholecalciferol* (Vitamin D*) 400 Unit Tablet, 400 UNIT PO DAILY, TAB 05/13/18 Dutasteride* (Avodart*) 0.5 Mg Capsule, 0.5 MG PO DAILY, CAP 05/13/18 Donepezil* (Aricept*) 10 Mg Tablet, 10 MG PO DAILY, TAB 05/13/18 Discontinued Reported Medications Hydrocortisone* Topical (Hydrocortisone* Topical) 0.5%-28.35 Gm Cream..g., 1 APPLIC TOP QHS PRN for ITCHING, TUB 07/19/18 Pantoprazole* (Protonix*) 40 Mg Tablet.dr, 40 MG PO DAILY, TAB 07/01/18 Risperidone* (Risperdal*) 1 Mg Tablet, 1 MG PO DAILY, TAB 05/13/18 Medications Current Medications Ondansetron HCl (Zofran Inj) 4 mg Q6H PRN IV NAUSEA/VOMITING; Start 09/01/18 at 17:30 Acetaminophen (Tylenol Tab) 650 mg Q6H PRN PO .PAIN 1-3 OR TEMP; Start 09/01/18 at 17:30 Oxycodone/ Acetaminophen (Percocet (5/ 325)) 1 tab Q6H PRN PO .MOD PAIN 4-6 Last administered on 09/05/18 02:49; Admin Dose 1 TAB; Start 09/01/18 at 17:30 Docusate Sodium (Colace) 100 mg Q12H PRN PO .CONSTIPATION; Start 09/01/18 at 17:30 Bisacodyl (Dulcolax) 5 mg DAILY PRN PO .CONSTIPATION; Start 09/01/18 at 17:30 Famotidine (Pepcid) 20 mg Q12 PO Last administered on 09/08/18 08:53; Admin Dose 20 MG; Start 09/01/18 at 21:00 Benazepril HCl (Lotensin) 40 mg DAILY PO Last administered on 09/08/18 08:54; Admin Dose 40 MG; Start 09/02/18 at 09:00 Carvedilol (Coreg) 6.25 mg BID PO Last administered on 09/08/18 08:55; Admin Dose 6.25 MG; Start 09/01/18 at 21:00 Divalproex Sodium (Depakote Er) 250 mg BID PO Last administered on 09/08/18 08:54; Admin Dose 250 MG; Start 09/01/18 at 21:00 Donepezil HCl (Aricept) 10 mg DAILY PO Last administered on 09/08/18 08:55; Admin Dose 10 MG; Start 09/02/18 at 09:00 Dutasteride (Avodart) 0.5 mg DAILY PO Last administered on 09/08/18 08:53; Admin Dose 0.5 MG; Start 09/02/18 at 09:00 Escitalopram Oxalate (Lexapro) 5 mg DAILY PO Last administered on 09/08/18 08:54; Admin Dose 5 MG; Start 09/02/18 at 09:00 Ferrous Sulfate (Ferrous Sulfate (Ec)) 325 mg DAILY PO Last administered on 09/08/18 08:54; Admin Dose 325 MG; Start 09/02/18 at 09:00 Memantine (Namenda) 10 mg DAILY PO Last administered on 09/08/18 08:53; Admin Dose 10 MG; Start 09/02/18 at 09:00 Olanzapine (Zyprexa) 2.5 mg TID PO Last administered on 09/08/18 08:53; Admin Dose 2.5 MG; Start 09/01/18 at 21:00 Tamsulosin HCl (Flomax) 0.4 mg HS PO Last administered on 09/07/18at 20:30; Admin Dose 0.4 MG; Start 09/01/18 at 21:00 Atorvastatin Calcium (Lipitor) 20 mg DAILY@21 PO Last administered on 09/07/18at 20:29; Admin Dose 20 MG; Start 09/01/18 at 21:00 Amoxicillin (Amoxicillin) 500 mg Q8 PO Last administered on 09/08/18at 05:42; Admin Dose 500 MG; Start 09/03/18 at 14:00; Stop 09/08/18 at 13:59 Allergies: Coded Allergies: No Known Allergy (Unverified , 09/01/18) Past Surgical History Past Surgical Hx: other (Status post TURP on 07/21/[address] Dolan) Social History Alcohol Use: none Smoking Status: Unknown if ever smoked Drug Use: none Exam/Review of Systems Exam Vitals Vital Signs Date Temp Pulse Resp B/P (MAP) Pulse Ox O2 O2 Flow FiO2 Time Delivery Rate 09/08/18 97.9 76 18 107/60 90 Room Air 07:53 (76) Intake and Output 09/07/18 09/07/18 09/08/18 1414:59 22:59 06:59 IntakeIntake Total 640 ml 240 ml BalanceBalance 640 ml 240 ml Constitutional: non-verbal, frail Head: normocephalic, atraumatic Eyes: nl conjunctiva, EOMI, nl lids, nl sclera, PERRL Musculoskeletal: nl extremities to inspection, nl gait and stance Results Result Diagram: 09/08/18 0639 09/08/18 0639 Results 24hrs Laboratory Tests Test 09/08/18 06:39 White Blood Count 2.9 L Red Blood Count 4.37 L Hemoglobin 10.3 L Hematocrit 34.5 L Mean Corpuscular Volume 78.9 L Mean Corpuscular Hemoglobin 23.6 L Mean Corpuscular Hemoglobin Concent 29.9 L Red Cell Distribution Width 18.1 H Platelet Count 129 L Mean Platelet Volume 10.1 Immature Granulocytes % 0.700 H Neutrophils % 15.3 L Lymphocytes % 63.9 H Monocytes % 17.9 H Eosinophils % 1.8 Basophils % 0.4 Nucleated Red Blood Cells % 0.0 Immature Granulocytes # 0.020 Neutrophils # 0.4 L Lymphocytes # 1.8 Monocytes # 0.5 Eosinophils # 0.1 Basophils # 0.0 Nucleated Red Blood Cells # 0.0 Sodium Level 143 Potassium Level 4.1 Chloride Level 109 Carbon Dioxide Level 27 Anion Gap 7 Blood Urea Nitrogen 14 Creatinine 0.73 Est Glomerular Filtrat Rate mL/min Glucose Level 102 Calcium Level 8.7 Medications Medication Current Medications Ondansetron HCl (Zofran Inj) 4 mg Q6H PRN IV NAUSEA/VOMITING; Start 09/01/18 at 17:30 Acetaminophen (Tylenol Tab) 650 mg Q6H PRN PO .PAIN 1-3 OR TEMP; Start 09/01/18 at 17:30 Oxycodone/ Acetaminophen (Percocet (5/ 325)) 1 tab Q6H PRN PO .MOD PAIN 4-6 Last administered on 09/05/18at 02:49; Admin Dose 1 TAB; Start 09/01/18 at 17:30 Docusate Sodium (Colace) 100 mg Q12H PRN PO .CONSTIPATION; Start 09/01/18 at 17:30 Bisacodyl (Dulcolax) 5 mg DAILY PRN PO .CONSTIPATION; Start 09/01/18 at 17:30 Famotidine (Pepcid) 20 mg Q12 PO Last administered on 09/08/18at 08:53; Admin Dose 20 MG; Start 09/01/18 at 21:00 Benazepril HCl (Lotensin) 40 mg DAILY PO Last administered on 09/08/18 08:54; Admin Dose 40 MG; Start 09/02/18 at 09:00 Carvedilol (Coreg) 6.25 mg BID PO Last administered on 09/08/18at 08:55; Admin Dose 6.25 MG; Start 09/01/18 at 21:00 Divalproex Sodium (Depakote Er) 250 mg BID PO Last administered on 09/08/18at 08:54; Admin Dose 250 MG; Start 09/01/18 at 21:00 Donepezil HCl (Aricept) 10 mg DAILY PO Last administered on 09/08/18 08:55; Admin Dose 10 MG; Start 09/02/18 at 09:00 Dutasteride (Avodart) 0.5 mg DAILY PO Last administered on 09/08/18 08:53; Admin Dose 0.5 MG; Start 09/02/18 at 09:00 Escitalopram Oxalate (Lexapro) 5 mg DAILY PO Last administered on 09/08/18 08:54; Admin Dose 5 MG; Start 09/02/18 at 09:00 Ferrous Sulfate (Ferrous Sulfate (Ec)) 325 mg DAILY PO Last administered on 09/08/18 08:54; Admin Dose 325 MG; Start 09/02/18 at 09:00 Memantine (Namenda) 10 mg DAILY PO Last administered on 09/08/18 08:53; Admin Dose 10 MG; Start 09/02/18 at 09:00 Olanzapine (Zyprexa) 2.5 mg TID PO Last administered on 09/08/18 08:53; Admin Dose 2.5 MG; Start 09/01/18 at 21:00 Tamsulosin HCl (Flomax) 0.4 mg HS PO Last administered on 09/07/18 20:30; Admin Dose 0.4 MG; Start 09/01/18 at 21:00 Atorvastatin Calcium (Lipitor) 20 mg DAILY@21 PO Last administered on 09/07/18 20:29; Admin Dose 20 MG; Start 09/01/18 at 21:00 Amoxicillin (Amoxicillin) 500 mg Q8 PO Last administered on 09/08/18 05:42; Admin Dose 500 MG; Start 09/03/18 at 14:00; Stop 09/08/18 at 13:59 RUBÉN DOMÍNGUEZ September 08, 2018 12:02
--- NOTE | 2018-09-08 12:39 | CONS ---
Assessment/Plan Assessment/Plan Hospital Course (Demo Recall) No acute events overnight patient is alert looks comfortable, no fevers overnight Antimicrobials: Amoxicillin Physical examination: Well-developed well-nourished elderly man who is awake in no distress head atraumatic normocephalic sclera nonicteric neck is supple chest rise symmetrical breath sounds clear heart S1-S2 abdomen soft bowel sounds present extremities without cyanosis Assessment: 1. Enterococcal UTI 2. Dementia 3. Status post acute encephalopathy 4. History of BPH status post TURP Plan: Patient remains stable, completing antibiotics Consultation Date/Type/Reason Admit Date/Time September 02, 2018 at 11:07 Initial Consult Date Type of Consult id Date/Time of Note DATE: 09/08/18 TIME: 12:38 Exam/Review of Systems Exam Vitals Vital Signs Date Temp Pulse Resp B/P (MAP) Pulse Ox O2 O2 Flow FiO2 Time Delivery Rate 09/08/18 97.9 76 18 107/60 90 Room Air 07:53 (76) Intake and Output 09/07/18 09/07/18 09/08/18 1414:59 22:59 06:59 IntakeIntake Total 640 ml 240 ml BalanceBalance 640 ml 240 ml Results Result Diagram: 09/08/18 0639 09/08/18 0639 Results 24hrs Laboratory Tests Test 09/08/18 06:39 White Blood Count 2.9 L Red Blood Count 4.37 L Hemoglobin 10.3 L Hematocrit 34.5 L Mean Corpuscular Volume 78.9 L Mean Corpuscular Hemoglobin 23.6 L Mean Corpuscular Hemoglobin Concent 29.9 L Red Cell Distribution Width 18.1 H Platelet Count 129 L Mean Platelet Volume 10.1 Immature Granulocytes % 0.700 H Neutrophils % 15.3 L Lymphocytes % 63.9 H Monocytes % 17.9 H Eosinophils % 1.8 Basophils % 0.4 Nucleated Red Blood Cells % 0.0 Immature Granulocytes # 0.020 Neutrophils # 0.4 L Lymphocytes # 1.8 Monocytes # 0.5 Eosinophils # 0.1 Basophils # 0.0 Nucleated Red Blood Cells # 0.0 Sodium Level 143 Potassium Level 4.1 Chloride Level 109 Carbon Dioxide Level 27 Anion Gap 7 Blood Urea Nitrogen 14 Creatinine 0.73 Est Glomerular Filtrat Rate mL/min Glucose Level 102 Calcium Level 8.7 Medications Medication Current Medications Ondansetron HCl (Zofran Inj) 4 mg Q6H PRN IV NAUSEA/VOMITING; Start 09/01/18 at 17:30 Acetaminophen (Tylenol Tab) 650 mg Q6H PRN PO .PAIN 1-3 OR TEMP; Start 09/01/18 at 17:30 Oxycodone/ Acetaminophen (Percocet (5/ 325)) 1 tab Q6H PRN PO .MOD PAIN 4-6 Last administered on 09/05/18at 02:49; Admin Dose 1 TAB; Start 09/01/18 at 17:30 Docusate Sodium (Colace) 100 mg Q12H PRN PO .CONSTIPATION; Start 09/01/18 at 17:30 Bisacodyl (Dulcolax) 5 mg DAILY PRN PO .CONSTIPATION; Start 09/01/18 at 17:30 Famotidine (Pepcid) 20 mg Q12 PO Last administered on 09/08/18 08:53; Admin Dose 20 MG; Start 09/01/18 at 21:00 Benazepril HCl (Lotensin) 40 mg DAILY PO Last administered on 09/08/18 08:54; Admin Dose 40 MG; Start 09/02/18 at 09:00 Carvedilol (Coreg) 6.25 mg BID PO Last administered on 09/08/18 08:55; Admin Dose 6.25 MG; Start 09/01/18 at 21:00 Divalproex Sodium (Depakote Er) 250 mg BID PO Last administered on 09/08/18 08:54; Admin Dose 250 MG; Start 09/01/18 at 21:00 Donepezil HCl (Aricept) 10 mg DAILY PO Last administered on 09/08/18 08:55; Admin Dose 10 MG; Start 09/02/18 at 09:00 Dutasteride (Avodart) 0.5 mg DAILY PO Last administered on 09/08/18 08:53; Admin Dose 0.5 MG; Start 09/02/18 at 09:00 Escitalopram Oxalate (Lexapro) 5 mg DAILY PO Last administered on 09/08/18 08: 54; Admin Dose 5 MG; Start 09/02/18 at 09:00 Ferrous Sulfate (Ferrous Sulfate (Ec)) 325 mg DAILY PO Last administered on 09/08/18 08:54; Admin Dose 325 MG; Start 09/02/18 at 09:00 Memantine (Namenda) 10 mg DAILY PO Last administered on 09/08/18 08:53; Admin Dose 10 MG; Start 09/02/18 at 09:00 Olanzapine (Zyprexa) 2.5 mg TID PO Last administered on 09/08/18 12:26; Admin Dose 2.5 MG; Start 09/01/18 at 21:00 Tamsulosin HCl (Flomax) 0.4 mg HS PO Last administered on 09/07/18 20:30; Admin Dose 0.4 MG; Start 09/01/18 at 21:00 Atorvastatin Calcium (Lipitor) 20 mg DAILY@21 PO Last administered on 09/07/18 20:29; Admin Dose 20 MG; Start 09/01/18 at 21:00 Amoxicillin (Amoxicillin) 500 mg Q8 PO Last administered on 09/08/18at 05:42; Admin Dose 500 MG; Start 09/03/18 at 14:00; Stop 09/08/18 at 13:59 GALLITO CUEVAS NP September 08, 2018 12:39
[2018-09-08 14:05] VITALS: BP 110/62; PULSE 64; RESP 18
--- NOTE | 2018-09-08 16:18 | PN ---
Date/Time of Note Date/Time of Note DATE: 09/08/18 TIME: 16:18 Assessment/Plan VTE [place] [facility] [place]: 5 [place] [facility] [place] Yes Pharmacological prophylaxis: NA/contraindicated Pharm contraindication: bleeding Lines/Catheters IV [facility]from [facility] [place] Urinary Cath still in place: No Assessment/Plan Hospital Course Patient with pancytopenia, continue neutropenic precaution, Dr Esquivel for Heme consult. Assessment/Plan -Cystitis. F/up on final urine culture, continue antibiotic per ID. Dr. Self is following in infection disease consultation. -Possible metabolic encephalopathy secondary to infection -Pancytopenia -Dementia with behavioral disturbance. Continue Aricept, Namenda, Zyprexa. psychiatric consult is appreciated. -HX of BPH, s/p TURP on 07/21/2018. Dr. Dolan is following in urology consultation. -Preserved ejection fraction per recent echo -Hypertension. Continue Lotensin. -Depression. Continue Lexapro. Further recommendations based on clinical course. Plan of care discussed with Dr. Becker. Result Diagram: 09/08/18 0639 09/08/18 0639 Results 24hrs Laboratory Tests Test 09/08/18 06:39 White Blood Count 2.9 L Red Blood Count 4.37 L Hemoglobin 10.3 L Hematocrit 34.5 L Mean Corpuscular Volume 78.9 L Mean Corpuscular Hemoglobin 23.6 L Mean Corpuscular Hemoglobin Concent 29.9 L Red Cell Distribution Width 18.1 H Platelet Count 129 L Mean Platelet Volume 10.1 Immature Granulocytes % 0.700 H Neutrophils % 15.3 L Lymphocytes % 63.9 H Monocytes % 17.9 H Eosinophils % 1.8 Basophils % 0.4 Nucleated Red Blood Cells % 0.0 Immature Granulocytes # 0.020 Neutrophils # 0.4 L Lymphocytes # 1.8 Monocytes # 0.5 Eosinophils # 0.1 Basophils # 0.0 Nucleated Red Blood Cells # 0.0 Sodium Level 143 Potassium Level 4.1 Chloride Level 109 Carbon Dioxide Level 27 Anion Gap 7 Blood Urea Nitrogen 14 Creatinine 0.73 Est Glomerular Filtrat Rate mL/min Glucose Level 102 Calcium Level 8.7 Iron Level 25 L Total Iron Binding Capacity 365 Percent Iron Saturation 7 L Ferritin 16.8 Vitamin B12 Level 841 Exam/Review of Systems Exam Vitals Vital Signs Date Temp Pulse Resp B/P (MAP) Pulse Ox O2 O2 Flow FiO2 Time Delivery Rate 09/08/18 98.0 64 18 110/62 93 Room Air 14:05 (78) Intake and Output 09/07/18 09/07/18 09/08/18 1515:00 23:00 07:00 IntakeIntake Total 640 ml 240 ml BalanceBalance 640 ml 240 ml Exam Constitutional: alert, oriented Respiratory: clear to auscultation Cardiovascular: nl pulses Gastrointestinal: soft, non-tender Extremities: normal pulses Neurological: nl mental status Skin: nl turgor Results Results 24hrs Laboratory Tests Test 09/08/18 06:39 White Blood Count 2.9 L Red Blood Count 4.37 L Hemoglobin 10.3 L Hematocrit 34.5 L Mean Corpuscular Volume 78.9 L Mean Corpuscular Hemoglobin 23.6 L Mean Corpuscular Hemoglobin Concent 29.9 L Red Cell Distribution Width 18.1 H Platelet Count 129 L Mean Platelet Volume 10.1 Immature Granulocytes % 0.700 H Neutrophils % 15.3 L Lymphocytes % 63.9 H Monocytes % 17.9 H Eosinophils % 1.8 Basophils % 0.4 Nucleated Red Blood Cells % 0.0 Immature Granulocytes # 0.020 Neutrophils # 0.4 L Lymphocytes # 1.8 Monocytes # 0.5 Eosinophils # 0.1 Basophils # 0.0 Nucleated Red Blood Cells # 0.0 Sodium Level 143 Potassium Level 4.1 Chloride Level 109 Carbon Dioxide Level 27 Anion Gap 7 Blood Urea Nitrogen 14 Creatinine 0.73 Est Glomerular Filtrat Rate mL/min Glucose Level 102 Calcium Level 8.7 Iron Level 25 L Total Iron Binding Capacity 365 Percent Iron Saturation 7 L Ferritin 16.8 Vitamin B12 Level 841 Medications Medication Current Medications Ondansetron HCl (Zofran Inj) 4 mg Q6H PRN IV NAUSEA/VOMITING; Start 09/01/18 at 17:30 Acetaminophen (Tylenol Tab) 650 mg Q6H PRN PO .PAIN 1-3 OR TEMP; Start 09/01/18 at 17:30 Oxycodone/ Acetaminophen (Percocet (5/ 325)) 1 tab Q6H PRN PO .MOD PAIN 4-6 Last administered on 09/05/18at 02:49; Admin Dose 1 TAB; Start 09/01/18 at 17:30 Docusate Sodium (Colace) 100 mg Q12H PRN PO .CONSTIPATION; Start 09/01/18 at 17:30 Bisacodyl (Dulcolax) 5 mg DAILY PRN PO .CONSTIPATION; Start 09/01/18 at 17:30 Famotidine (Pepcid) 20 mg Q12 PO Last administered on 09/08/18 08:53; Admin Dose 20 MG; Start 09/01/18 at 21:00 Benazepril HCl (Lotensin) 40 mg DAILY PO Last administered on 09/08/18 08:54; Admin Dose 40 MG; Start 09/02/18 at 09:00 Carvedilol (Coreg) 6.25 mg BID PO Last administered on 09/08/18 08:55; Admin Dose 6.25 MG; Start 09/01/18 at 21:00 Divalproex Sodium (Depakote Er) 250 mg BID PO Last administered on 09/08/18 08:54; Admin Dose 250 MG; Start 09/01/18 at 21:00 Donepezil HCl (Aricept) 10 mg DAILY PO Last administered on 09/08/18 08:55; Admin Dose 10 MG; Start 09/02/18 at 09:00 Dutasteride (Avodart) 0.5 mg DAILY PO Last administered on 09/08/18 08:53; Admin Dose 0.5 MG; Start 09/02/18 at 09:00 Escitalopram Oxalate (Lexapro) 5 mg DAILY PO Last administered on 09/08/18 08:54; Admin Dose 5 MG; Start 09/02/18 at 09:00 Ferrous Sulfate (Ferrous Sulfate (Ec)) 325 mg DAILY PO Last administered on 09/08/18 08:54; Admin Dose 325 MG; Start 09/02/18 at 09:00 Memantine (Namenda) 10 mg DAILY PO Last administered on 09/08/18 08:53; Admin Dose 10 MG; Start 09/02/18 at 09:00 Olanzapine (Zyprexa) 2.5 mg TID PO Last administered on 09/08/18 12:26; Admin Dose 2.5 MG; Start 09/01/18 at 21:00 Tamsulosin HCl (Flomax) 0.4 mg HS PO Last administered on 09/07/18 20:30; Admin Dose 0.4 MG; Start 09/01/18 at 21:00 Atorvastatin Calcium (Lipitor) 20 mg DAILY@21 PO Last administered on 09/07/18at 20:29; Admin Dose 20 MG; Start 09/01/18 at 21:00 JOYCE CHOW September 08, 2018 16:18
[2018-09-08 20:16] VITALS: BP 151/69; PULSE 65; RESP 18
[2018-09-08] MEDS: TAMSULOSIN (SR) 0.4 MG CAP PO SCH (20:19)
[2018-09-08] MEDS: ATORVASTATIN 20 MG TAB PO SCH (20:20)
[2018-09-09 02:30] VITALS: BP 101/62; PULSE 78; RESP 18
[2018-09-09 07:42] VITALS: BP 127/70; PULSE 82; RESP 18
[2018-09-09] MEDS: OLANZAPINE 2.5 MG TAB PO SCH ×3 (09:05→21:31)
[2018-09-09] MEDS: BENAZEPRIL 40 MG TAB PO SCH (09:06)
[2018-09-09] MEDS: DONEPEZIL 10 MG TAB PO SCH (09:06)
[2018-09-09] MEDS: ESCITALOPRAM 10 MG TAB PO SCH (09:07)
[2018-09-09] MEDS: DUTASTERIDE 0.5 MG CAP PO SCH (09:07)
[2018-09-09] MEDS: FERROUS SULFATE (EC) 325 MG TAB PO SCH (09:07)
[2018-09-09] MEDS: DIVALPROEX (ER) 250 MG TAB PO SCH ×2 (09:08→21:31)
[2018-09-09] MEDS: MEMANTINE 10 MG TAB PO SCH (09:08)
[2018-09-09] MEDS: FAMOTIDINE 20 MG TAB PO SCH ×2 (09:08→21:31)
--- NOTE | 2018-09-09 13:40 | CONS ---
Assessment/Plan Assessment/Plan Hospital Course (Demo Recall) No acute events overnight Antimicrobials: none Physical examination: Well-developed well-nourished elderly man who is awake in no distress head atraumatic normocephalic sclera nonicteric neck is supple chest rise symmetrical breath sounds clear heart S1-S2 abdomen soft bowel sounds present extremities without cyanosis Assessment: 1. Enterococcal UTI 2. Dementia 3. Status post acute encephalopathy 4. History of BPH status post TURP Plan: Patient remains stable, completed antibiotics Consultation Date/Type/Reason Admit Date/Time September 02, 2018 at 11:07 Initial Consult Date Type of Consult id Date/Time of Note DATE: 09/09/18 TIME: 13:40 Exam/Review of Systems Exam Vitals Vital Signs Date Temp Pulse Resp B/P (MAP) Pulse Ox O2 O2 Flow FiO2 Time Delivery Rate 09/09/18 97.9 82 18 127/70 90 Room Air 07:42 (89) Intake and Output 09/08/18 09/08/18 09/09/18 1515:00 23:00 07:00 IntakeIntake Total 740 ml 380 ml BalanceBalance 740 ml 380 ml Results Result Diagram: 09/09/18 0756 09/08/18 0639 Results 24hrs Laboratory Tests Test 09/08/18 15:16 09/08/18 17:39 09/09/18 07:56 Total Protein (PEP) 7.3 Albumin (PEP) Pending [id number] Pending [id number] Pending Beta Globulins Pending Gamma Globulins Pending Protein Electrophoresis Interpret Pending Prothrombin Time 15.4 H Prothrombin Time Ratio 1.2 INR International Normalized Ratio 1.21 Activated Partial Thromboplast Time 34.1 Fibrinogen 439.0 White Blood Count 2.8 L Red Blood Count 4.37 L Hemoglobin 10.1 L Hematocrit 34.9 L Mean Corpuscular Volume 79.9 L Mean Corpuscular Hemoglobin 23.1 L Mean Corpuscular Hemoglobin Concent 28.9 L Red Cell Distribution Width 18.7 H Platelet Count 132 L Mean Platelet Volume 10.5 H Immature Granulocytes % 0.400 Neutrophils % 14.4 L Lymphocytes % 63.3 H Monocytes % 19.3 H Eosinophils % 2.2 Basophils % 0.4 Nucleated Red Blood Cells % 0.0 Immature Granulocytes # 0.010 Neutrophils # 0.4 L Lymphocytes # 1.7 Monocytes # 0.5 Eosinophils # 0.1 Basophils # 0.0 Nucleated Red Blood Cells # 0.0 Medications Medication Current Medications Ondansetron HCl (Zofran Inj) 4 mg Q6H PRN IV NAUSEA/VOMITING; Start 09/01/18 at 17:30 Acetaminophen (Tylenol Tab) 650 mg Q6H PRN PO .PAIN 1-3 OR TEMP; Start 09/01/18 at 17:30 Oxycodone/ Acetaminophen (Percocet (5/ 325)) 1 tab Q6H PRN PO .MOD PAIN 4-6 Last administered on 09/05/18 02:49; Admin Dose 1 TAB; Start 09/01/18 at 17:30 Docusate Sodium (Colace) 100 mg Q12H PRN PO .CONSTIPATION Last administered on 09/08/18 20:19; Admin Dose 100 MG; Start 09/01/18 at 17:30 Bisacodyl (Dulcolax) 5 mg DAILY PRN PO .CONSTIPATION; Start 09/01/18 at 17:30 Famotidine (Pepcid) 20 mg Q12 PO Last administered on 09/09/18 09:08; Admin Dose 20 MG; Start 09/01/18 at 21:00 Benazepril HCl (Lotensin) 40 mg DAILY PO Last administered on 09/09/18 09:06; Admin Dose 40 MG; Start 09/02/18 at 09:00 Carvedilol (Coreg) 6.25 mg BID PO Last administered on 09/09/18 09:09; Admin Dose 6.25 MG; Start 09/01/18 at 21:00 Divalproex Sodium (Depakote Er) 250 mg BID PO Last administered on 09/09/18 09:08; Admin Dose 250 MG; Start 09/01/18 at 21:00 Donepezil HCl (Aricept) 10 mg DAILY PO Last administered on 09/09/18 09:06; Admin Dose 10 MG; Start 09/02/18 at 09:00 Dutasteride (Avodart) 0.5 mg DAILY PO Last administered on 09/09/18 09:07; Admin Dose 0.5 MG; Start 09/02/18 at 09:00 Escitalopram Oxalate (Lexapro) 5 mg DAILY PO Last administered on 09/09/18 09:07; Admin Dose 5 MG; Start 09/02/18 at 09:00 Ferrous Sulfate (Ferrous Sulfate (Ec)) 325 mg DAILY PO Last administered on 09/09/18 09:07; Admin Dose 325 MG; Start 09/02/18 at 09:00 Memantine (Namenda) 10 mg DAILY PO Last administered on 09/09/18 09:08; Admin Dose 10 MG; Start 09/02/18 at 09:00 Olanzapine (Zyprexa) 2.5 mg TID PO Last administered on 09/09/18 12:05; Admin Dose 2.5 MG; Start 09/01/18 at 21:00 Tamsulosin HCl (Flomax) 0.4 mg HS PO Last administered on 09/08/18 20:19; Admin Dose 0.4 MG; Start 09/01/18 at 21:00 Atorvastatin Calcium (Lipitor) 20 mg DAILY@21 PO Last administered on 09/08/18 20:20; Admin Dose 20 MG; Start 09/01/18 at 21:00 GALLITO CUEVAS NP September 09, 2018 13:40
[2018-09-09 13:41] VITALS: BP 110/59; PULSE 70; RESP 18
--- NOTE | 2018-09-09 18:45 | PN ---
Date/Time of Note Date/Time of Note DATE: 09/09/18 TIME: 18:43 Assessment/Plan VTE Prophylaxis Risk score (from [facility] [place])>0 risk: 4 SCD applied (from [facility] [place]): Yes Pharmacological prophylaxis: NA/contraindicated Pharm contraindication: thrombocytopenia Lines/Catheters IV Catheter Type (from [facility]): Peripheral IV Urinary Cath still in place: No Assessment/Plan Hospital Course Patient is undergoing hematology work-up for persistent pancytopenia. Assessment/Plan -Cystitis. Completed treatment with antibiotics. Dr. Self is following in infection disease consultation. -Possible metabolic encephalopathy secondary to infection -Pancytopenia. Dr. Esquivel is following in hematology consultation. -Dementia with behavioral disturbance. Continue Aricept, Namenda, Zyprexa. psychiatric consult is appreciated. -HX of BPH, s/p TURP on 07/21/2018. Dr. Dolan is following in urology consultation. -Preserved ejection fraction per recent echo -Hypertension. Continue Lotensin. -Depression. Continue Lexapro. Further recommendations based on clinical course. Plan of care discussed with Dr. Becker. Result Diagram: 09/09/18 0756 09/08/18 0639 Results 24hrs Laboratory Tests Test 09/09/18 07:56 White Blood Count 2.8 L Red Blood Count 4.37 L Hemoglobin 10.1 L Hematocrit 34.9 L Mean Corpuscular Volume 79.9 L Mean Corpuscular Hemoglobin 23.1 L Mean Corpuscular Hemoglobin Concent 28.9 L Red Cell Distribution Width 18.7 H Platelet Count 132 L Mean Platelet Volume 10.5 H Immature Granulocytes % 0.400 Neutrophils % 14.4 L Lymphocytes % 63.3 H Monocytes % 19.3 H Eosinophils % 2.2 Basophils % 0.4 Nucleated Red Blood Cells % 0.0 Immature Granulocytes # 0.010 Neutrophils # 0.4 L Lymphocytes # 1.7 Monocytes # 0.5 Eosinophils # 0.1 Basophils # 0.0 Nucleated Red Blood Cells # 0.0 Exam/Review of Systems Exam Vitals Vital Signs Date Temp Pulse Resp B/P (MAP) Pulse Ox O2 O2 Flow FiO2 Time Delivery Rate 09/09/18 97.8 70 18 110/59 94 Room Air 13:41 (76) Intake and Output 09/08/18 09/08/18 09/09/18 1515:00 23:00 07:00 IntakeIntake Total 740 ml 380 ml BalanceBalance 740 ml 380 ml Exam Constitutional: alert, oriented Respiratory: clear to auscultation Cardiovascular: nl pulses Gastrointestinal: soft, non-tender Extremities: normal pulses Neurological: nl mental status Skin: nl turgor Results Results 24hrs Laboratory Tests Test 09/09/18 07:56 White Blood Count 2.8 L Red Blood Count 4.37 L Hemoglobin 10.1 L Hematocrit 34.9 L Mean Corpuscular Volume 79.9 L Mean Corpuscular Hemoglobin 23.1 L Mean Corpuscular Hemoglobin Concent 28.9 L Red Cell Distribution Width 18.7 H Platelet Count 132 L Mean Platelet Volume 10.5 H Immature Granulocytes % 0.400 Neutrophils % 14.4 L Lymphocytes % 63.3 H Monocytes % 19.3 H Eosinophils % 2.2 Basophils % 0.4 Nucleated Red Blood Cells % 0.0 Immature Granulocytes # 0.010 Neutrophils # 0.4 L Lymphocytes # 1.7 Monocytes # 0.5 Eosinophils # 0.1 Basophils # 0.0 Nucleated Red Blood Cells # 0.0 Medications Medication Current Medications Ondansetron HCl (Zofran Inj) 4 mg Q6H PRN IV NAUSEA/VOMITING; Start 09/01/18 at 17:30 Acetaminophen (Tylenol Tab) 650 mg Q6H PRN PO .PAIN 1-3 OR TEMP; Start 09/01/18 at 17:30 Oxycodone/ Acetaminophen (Percocet (5/ 325)) 1 tab Q6H PRN PO .MOD PAIN 4-6 Last administered on 09/05/18at 02:49; Admin Dose 1 TAB; Start 09/01/18 at 17:30 Docusate Sodium (Colace) 100 mg Q12H PRN PO .CONSTIPATION Last administered on 09/08/18at 20:19; Admin Dose 100 MG; Start 09/01/18 at 17:30 Bisacodyl (Dulcolax) 5 mg DAILY PRN PO .CONSTIPATION; Start 09/01/18 at 17:30 Famotidine (Pepcid) 20 mg Q12 PO Last administered on 09/09/18at 09:08; Admin Dose 20 MG; Start 09/01/18 at 21:00 Benazepril HCl (Lotensin) 40 mg DAILY PO Last administered on 09/09/18at 09:06; Admin Dose 40 MG; Start 09/02/18 at 09:00 Carvedilol (Coreg) 6.25 mg BID PO Last administered on 09/09/18 09:09; Admin Dose 6.25 MG; Start 09/01/18 at 21:00 Divalproex Sodium (Depakote Er) 250 mg BID PO Last administered on 09/09/18 09:08; Admin Dose 250 MG; Start 09/01/18 at 21:00 Donepezil HCl (Aricept) 10 mg DAILY PO Last administered on 09/09/18 09:06; Admin Dose 10 MG; Start 09/02/18 at 09:00 Dutasteride (Avodart) 0.5 mg DAILY PO Last administered on 09/09/18 09:07; Admin Dose 0.5 MG; Start 09/02/18 at 09:00 Escitalopram Oxalate (Lexapro) 5 mg DAILY PO Last administered on 09/09/18 09:07; Admin Dose 5 MG; Start 09/02/18 at 09:00 Ferrous Sulfate (Ferrous Sulfate (Ec)) 325 mg DAILY PO Last administered on 09/09/18 09:07; Admin Dose 325 MG; Start 09/02/18 at 09:00 Memantine (Namenda) 10 mg DAILY PO Last administered on 09/09/18 09:08; Admin Dose 10 MG; Start 09/02/18 at 09:00 Olanzapine (Zyprexa) 2.5 mg TID PO Last administered on 09/09/18 12:05; Admin Dose 2.5 MG; Start 09/01/18 at 21:00 Tamsulosin HCl (Flomax) 0.4 mg HS PO Last administered on 09/08/18 20:19; Admin Dose 0.4 MG; Start 09/01/18 at 21:00 Atorvastatin Calcium (Lipitor) 20 mg DAILY@21 PO Last administered on 09/08/18 20:20; Admin Dose 20 MG; Start 09/01/18 at 21:00 JOYCE CHOW September 09, 2018 18:45
[2018-09-09 19:52] VITALS: BP 103/55; PULSE 72; RESP 18
[2018-09-09] MEDS: ATORVASTATIN 20 MG TAB PO SCH (21:31)
[2018-09-09] MEDS: TAMSULOSIN (SR) 0.4 MG CAP PO SCH (21:31)
[2018-09-10 01:54] VITALS: BP 108/60; PULSE 69; RESP 18
[2018-09-10 07:43] VITALS: BP 106/60; PULSE 92; RESP 18
[2018-09-10] MEDS: MEMANTINE 10 MG TAB PO SCH (08:36)
[2018-09-10] MEDS: DUTASTERIDE 0.5 MG CAP PO SCH (08:36)
[2018-09-10] MEDS: DIVALPROEX (ER) 250 MG TAB PO SCH ×2 (08:36→21:27)
[2018-09-10] MEDS: FERROUS SULFATE (EC) 325 MG TAB PO SCH (08:36)
[2018-09-10] MEDS: ESCITALOPRAM 10 MG TAB PO SCH (08:36)
[2018-09-10] MEDS: DONEPEZIL 10 MG TAB PO SCH (08:37)
[2018-09-10] MEDS: OLANZAPINE 2.5 MG TAB PO SCH ×3 (08:37→21:33)
[2018-09-10] MEDS: BENAZEPRIL 40 MG TAB PO SCH (08:37)
[2018-09-10] MEDS: FAMOTIDINE 20 MG TAB PO SCH ×2 (08:37→21:27)
--- NOTE | 2018-09-10 12:24 | PN ---
Date/Time of Note Date/Time of Note DATE: 09/10/18 TIME: 12:24 Assessment/Plan VTE Prophylaxis Risk score (from [facility] [place])>0 risk: 5 SCD applied (from [facility] [place]): Yes SCD contraindicated: other Pharmacological prophylaxis: other Lines/Catheters IV C[facility] Type (from [facility] Saline Lock Urinary Cath still in place: No Assessment/Plan Assessment/Plan -Cystitis. Completed treatment with antibiotics. Dr. Self is following in infection disease consultation. -Possible metabolic encephalopathy secondary to infection -Pancytopenia. Dr. Esquivel is following in hematology consultation. -Dementia with behavioral disturbance. Continue Aricept, Namenda, Zyprexa. psychiatric consult is appreciated. -HX of BPH, s/p TURP on 07/21/2018. Dr. Dolan is following in urology consultation. -Preserved ejection fraction per recent echo -Hypertension. Continue Lotensin. -Depression. Continue Lexapro. Further recommendations based on clinical course. Plan of care discussed with Dr. Becker. Result Diagram: 09/10/18 0556 09/10/18 0556 Results 24hrs Laboratory Tests Test 09/10/18 05:56 White Blood Count 3.0 L Red Blood Count 4.32 L Hemoglobin 10.1 L Hematocrit 34.9 L Mean Corpuscular Volume 80.8 L Mean Corpuscular Hemoglobin 23.4 L Mean Corpuscular Hemoglobin Concent 28.9 L Red Cell Distribution Width 19.0 H Platelet Count 119 L Mean Platelet Volume 10.1 Immature Granulocytes % 0.300 Neutrophils % 15.1 L Lymphocytes % 67.0 H Monocytes % 16.0 H Eosinophils % 1.3 Basophils % 0.3 Nucleated Red Blood Cells % 0.0 Immature Granulocytes # 0.010 Neutrophils # 0.5 L Lymphocytes # 2.0 Monocytes # 0.5 Eosinophils # 0.0 Basophils # 0.0 Nucleated Red Blood Cells # 0.0 Sodium Level 144 Potassium Level 4.3 Chloride Level 109 Carbon Dioxide Level 31 Anion Gap 4 L Blood Urea Nitrogen 14 Creatinine 0.82 Est Glomerular Filtrat Rate mL/min Glucose Level 93 Calcium Level 8.6 Subjective 24 Hr Interval Summary Free Text/Dictation - nad; vss. confused - on neutropenic precautions - placement pending - no events reported overnight - dw staff Eyes: no complaints ENT: no complaints Respiratory: no complaints Cardiovascular: no complaints Gastrointestinal: no complaints Genitourinary: no complaints Musculoskeletal: no complaints Skin: no complaints Neurologic: no complaints Endocrine: no complaints Exam/Review of Systems Exam Vitals Vital Signs Date Temp Pulse Resp B/P (MAP) Pulse Ox O2 O2 Flow FiO2 Time Delivery Rate 09/10/18 97.6 92 18 106/60 92 07:43 (75) 09/09/18 Room Air 13:41 Intake and Output 09/09/18 09/09/18 09/10/18 1515:00 23:00 07:00 IntakeIntake Total 700 ml 340 ml BalanceBalance 700 ml 340 ml Constitutional: alert, well developed Psych: nl mood/affect Eyes: nl lids, nl sclera ENMT: nl external ears & nose Neck: non-tender Respiratory: clear to auscultation Cardiovascular: nl pulses, other (s1s2) Gastrointestinal: soft, non-tender Musculoskeletal: nl extremities to inspection Extremities: normal pulses Neurological: nl speech, confused Skin: nl turgor Lymph: nontender Results Results 24hrs Laboratory Tests Test 09/10/18 05:56 White Blood Count 3.0 L Red Blood Count 4.32 L Hemoglobin 10.1 L Hematocrit 34.9 L Mean Corpuscular Volume 80.8 L Mean Corpuscular Hemoglobin 23.4 L Mean Corpuscular Hemoglobin Concent 28.9 L Red Cell Distribution Width 19.0 H Platelet Count 119 L Mean Platelet Volume 10.1 Immature Granulocytes % 0.300 Neutrophils % 15.1 L Lymphocytes % 67.0 H Monocytes % 16.0 H Eosinophils % 1.3 Basophils % 0.3 Nucleated Red Blood Cells % 0.0 Immature Granulocytes # 0.010 Neutrophils # 0.5 L Lymphocytes # 2.0 Monocytes # 0.5 Eosinophils # 0.0 Basophils # 0.0 Nucleated Red Blood Cells # 0.0 Sodium Level 144 Potassium Level 4.3 Chloride Level 109 Carbon Dioxide Level 31 Anion Gap 4 L Blood Urea Nitrogen 14 Creatinine 0.82 Est Glomerular Filtrat Rate mL/min Glucose Level 93 Calcium Level 8.6 Medications Medication Current Medications Ondansetron HCl (Zofran Inj) 4 mg Q6H PRN IV NAUSEA/VOMITING; Start 09/01/18 at 17:30 Acetaminophen (Tylenol Tab) 650 mg Q6H PRN PO .PAIN 1-3 OR TEMP; Start 09/01/18 at 17:30 Oxycodone/ Acetaminophen (Percocet (5/ 325)) 1 tab Q6H PRN PO .MOD PAIN 4-6 Last administered on 09/05/18 02:49; Admin Dose 1 TAB; Start 09/01/18 at 17:30 Docusate Sodium (Colace) 100 mg Q12H PRN PO .CONSTIPATION Last administered on 09/08/18 20:19; Admin Dose 100 MG; Start 09/01/18 at 17:30 Bisacodyl (Dulcolax) 5 mg DAILY PRN PO .CONSTIPATION; Start 09/01/18 at 17:30 Famotidine (Pepcid) 20 mg Q12 PO Last administered on 09/10/18 08:37; Admin Dose 20 MG; Start 09/01/18 at 21:00 Benazepril HCl (Lotensin) 40 mg DAILY PO Last administered on 09/10/18 08:37; Admin Dose 40 MG; Start 09/02/18 at 09:00 Carvedilol (Coreg) 6.25 mg BID PO Last administered on 09/10/18 08:38; Admin Dose 6.25 MG; Start 09/01/18 at 21:00 Divalproex Sodium (Depakote Er) 250 mg BID PO Last administered on 09/10/18 08:36; Admin Dose 250 MG; Start 09/01/18 at 21:00 Donepezil HCl (Aricept) 10 mg DAILY PO Last administered on 09/10/18 08:37; Admin Dose 10 MG; Start 09/02/18 at 09:00 Dutasteride (Avodart) 0.5 mg DAILY PO Last administered on 09/10/18 08:36; Admin Dose 0.5 MG; Start 09/02/18 at 09:00 Escitalopram Oxalate (Lexapro) 5 mg DAILY PO Last administered on 09/10/18 08:36; Admin Dose 5 MG; Start 09/02/18 at 09:00 Ferrous Sulfate (Ferrous Sulfate (Ec)) 325 mg DAILY PO Last administered on 09/10/18 08:36; Admin Dose 325 MG; Start 09/02/18 at 09:00 Memantine (Namenda) 10 mg DAILY PO Last administered on 09/10/18 08:36; Admin Dose 10 MG; Start 09/02/18 at 09:00 Olanzapine (Zyprexa) 2.5 mg TID PO Last administered on 09/10/18 12:14; Admin Dose 2.5 MG; Start 09/01/18 at 21:00 Tamsulosin HCl (Flomax) 0.4 mg HS PO Last administered on 09/09/18 21:31; Admin Dose 0.4 MG; Start 09/01/18 at 21:00 Atorvastatin Calcium (Lipitor) 20 mg DAILY@21 PO Last administered on 09/09/18 21:31; Admin Dose 20 MG; Start 09/01/18 at 21:00 FROYLAN ALVAREZ September 10, 2018 12:24
--- NOTE | 2018-09-10 13:40 | CONS ---
Assessment/Plan Assessment/Plan Hospital Course (Demo Recall) pleasant 83 yo with multiple medical problems admitted with UTI who we are asked to see for mild pancytopenia he has microcytosis overall his counts are stable to slightly improved since admission suspect his pancytopenia due to underlying infection iron studies c/w iron deficiency. start ferrlecit x 5 doses SPEP negative for any monoclonal proteins neutropenic precautions ok to start GCSF Consultation Date/Type/Reason Admit Date/Time September 02, 2018 at 11:07 Initial Consult Date Date/Time of Note DATE: 09/10/18 TIME: 13:37 Exam/Review of Systems Exam Vitals Vital Signs Date Temp Pulse Resp B/P (MAP) Pulse Ox O2 O2 Flow FiO2 Time Delivery Rate 09/10/18 97.6 92 18 106/60 92 07:43 (75) 09/09/18 Room Air 13:41 Intake and Output 09/09/18 09/09/18 09/10/18 1515:00 23:00 07:00 IntakeIntake Total 700 ml 340 ml BalanceBalance 700 ml 340 ml Constitutional: alert, oriented, well developed Psych: no complaints, nl mood/affect Head: normocephalic, atraumatic Musculoskeletal: nl extremities to inspection, nl gait and stance Results Result Diagram: 09/10/18 0556 09/10/18 0556 Results 24hrs Laboratory Tests Test 09/10/18 05:56 White Blood Count 3.0 L Red Blood Count 4.32 L Hemoglobin 10.1 L Hematocrit 34.9 L Mean Corpuscular Volume 80.8 L Mean Corpuscular Hemoglobin 23.4 L Mean Corpuscular Hemoglobin Concent 28.9 L Red Cell Distribution Width 19.0 H Platelet Count 119 L Mean Platelet Volume 10.1 Immature Granulocytes % 0.300 Neutrophils % 15.1 L Lymphocytes % 67.0 H Monocytes % 16.0 H Eosinophils % 1.3 Basophils % 0.3 Nucleated Red Blood Cells % 0.0 Immature Granulocytes # 0.010 Neutrophils # 0.5 L Lymphocytes # 2.0 Monocytes # 0.5 Eosinophils # 0.0 Basophils # 0.0 Nucleated Red Blood Cells # 0.0 Sodium Level 144 Potassium Level 4.3 Chloride Level 109 Carbon Dioxide Level 31 Anion Gap 4 L Blood Urea Nitrogen 14 Creatinine 0.82 Est Glomerular Filtrat Rate mL/min Glucose Level 93 Calcium Level 8.6 Medications Medication Current Medications Ondansetron HCl (Zofran Inj) 4 mg Q6H PRN IV NAUSEA/VOMITING; Start 09/01/18 at 17:30 Acetaminophen (Tylenol Tab) 650 mg Q6H PRN PO .PAIN 1-3 OR TEMP; Start 09/01/18 at 17:30 Oxycodone/ Acetaminophen (Percocet (5/ 325)) 1 tab Q6H PRN PO .MOD PAIN 4-6 Last administered on 09/05/18 02:49; Admin Dose 1 TAB; Start 09/01/18 at 17:30 Docusate Sodium (Colace) 100 mg Q12H PRN PO .CONSTIPATION Last administered on 09/08/18 20:19; Admin Dose 100 MG; Start 09/01/18 at 17:30 Bisacodyl (Dulcolax) 5 mg DAILY PRN PO .CONSTIPATION; Start 09/01/18 at 17:30 Famotidine (Pepcid) 20 mg Q12 PO Last administered on 09/10/18 08:37; Admin Dose 20 MG; Start 09/01/18 at 21:00 Benazepril HCl (Lotensin) 40 mg DAILY PO Last administered on 09/10/18 08:37; Admin Dose 40 MG; Start 09/02/18 at 09:00 Carvedilol (Coreg) 6.25 mg BID PO Last administered on 09/10/18 08:38; Admin Dose 6.25 MG; Start 09/01/18 at 21:00 Divalproex Sodium (Depakote Er) 250 mg BID PO Last administered on 09/10/18 08:36; Admin Dose 250 MG; Start 09/01/18 at 21:00 Donepezil HCl (Aricept) 10 mg DAILY PO Last administered on 09/10/18 08:37; Admin Dose 10 MG; Start 09/02/18 at 09:00 Dutasteride (Avodart) 0.5 mg DAILY PO Last administered on 09/10/18 08:36; Admin Dose 0.5 MG; Start 09/02/18 at 09:00 Escitalopram Oxalate (Lexapro) 5 mg DAILY PO Last administered on 09/10/18 08:36; Admin Dose 5 MG; Start 09/02/18 at 09:00 Ferrous Sulfate (Ferrous Sulfate (Ec)) 325 mg DAILY PO Last administered on 09/10/18 08:36; Admin Dose 325 MG; Start 09/02/18 at 09:00 Memantine (Namenda) 10 mg DAILY PO Last administered on 09/10/18 08:36; Admin Dose 10 MG; Start 09/02/18 at 09:00 Olanzapine (Zyprexa) 2.5 mg TID PO Last administered on 09/10/18 12:14; Admin Dose 2.5 MG; Start 09/01/18 at 21:00 Tamsulosin HCl (Flomax) 0.4 mg HS PO Last administered on 09/09/18at 21:31; Admin Dose 0.4 MG; Start 09/01/18 at 21:00 Atorvastatin Calcium (Lipitor) 20 mg DAILY@21 PO Last administered on 09/09/18 21:31; Admin Dose 20 MG; Start 09/01/18 at 21:00 Ferric Sodium Gluconate Complex 125 mg/Sodium Chloride 110 ml @ 110 mls/hr DAILY@1300 IVPB ; Start 09/10/18 at 14:30; Stop 09/14/18 at 13:59 RUBÉN DOMÍNGUEZ September 10, 2018 13:40
[2018-09-10 13:51] VITALS: BP 97/53; PULSE 74; RESP 17
[2018-09-10] MEDS: SOD FERRIC GLUC COMPLX 125 MG in SOD CHLORIDE 0.9% 100 ML IVPB SCH (14:15)
[2018-09-10 20:42] VITALS: BP 145/66; PULSE 69; RESP 18
[2018-09-10] MEDS: ATORVASTATIN 20 MG TAB PO SCH (21:27)
[2018-09-10] MEDS: TAMSULOSIN (SR) 0.4 MG CAP PO SCH (21:27)
[2018-09-11 01:54] VITALS: BP 118/64; PULSE 73; RESP 18
[2018-09-11 07:55] VITALS: BP 112/72; PULSE 64; RESP 18
[2018-09-11] MEDS: FERROUS SULFATE (EC) 325 MG TAB PO SCH (09:09)
[2018-09-11] MEDS: DIVALPROEX (ER) 250 MG TAB PO SCH ×2 (09:10→20:37)
[2018-09-11] MEDS: ESCITALOPRAM 10 MG TAB PO SCH (09:10)
[2018-09-11] MEDS: OLANZAPINE 2.5 MG TAB PO SCH ×3 (09:11→20:38)
[2018-09-11] MEDS: DONEPEZIL 10 MG TAB PO SCH (09:11)
[2018-09-11] MEDS: BENAZEPRIL 40 MG TAB PO SCH (09:11)
[2018-09-11] MEDS: DUTASTERIDE 0.5 MG CAP PO SCH (09:11)
[2018-09-11] MEDS: FAMOTIDINE 20 MG TAB PO SCH ×2 (09:11→20:38)
[2018-09-11] MEDS: MEMANTINE 10 MG TAB PO SCH (09:11)
--- NOTE | 2018-09-11 12:17 | PN ---
Date/Time of Note Date/Time of Note DATE: 09/11/18 TIME: 12:16 Assessment/Plan VTE Prophylaxis Risk score (from [facility]0 risk: 5 [place] [facility] [place] SCD contraindicated: other Pharmacological prophylaxis: LMWH Lines/Catheters IV C[facility]ter Type (from [facility] Saline Lock Urinary Cath still in place: No Assessment/Plan Hospital Course -Cystitis. Completed treatment with antibiotics. Dr. Self is following in infection disease consultation. -Possible metabolic encephalopathy secondary to infection -Pancytopenia. Dr. Esquivel is following in hematology consultation. -Dementia with behavioral disturbance. Continue Aricept, Namenda, Zyprexa. psychiatric consult is appreciated. -HX of BPH, s/p TURP on 07/21/2018. Dr. Dolan is following in urology consultation. -Preserved ejection fraction per recent echo -Hypertension. Continue Lotensin. -Depression. Continue Lexapro. Result Diagram: 09/10/18 0556 09/10/1856 Subjective 24 Hr Interval Summary Free Text/Dictation Patient has no complaints Exam/Review of Systems Exam Vitals Vital Signs Date Temp Pulse Resp B/P (MAP) Pulse Ox O2 O2 Flow FiO2 Time Delivery Rate 09/11/18 97.9 64 18 112/72 93 07:55 (85) 09/09/18 Room Air 13:41 Intake and Output 09/10/18 09/10/18 09/11/18 1515:00 23:00 07:00 IntakeIntake Total 550 ml 460 ml OutputOutput Total 200 ml BalanceBalance 550 ml 260 ml Constitutional: well developed Head: normocephalic, atraumatic Neck: supple Respiratory: diminished breath sounds Cardiovascular: regular rate and rhythm Gastrointestinal: soft, non-tender Extremities: normal pulses Medications Medication Current Medications Ondansetron HCl (Zofran Inj) 4 mg Q6H PRN IV NAUSEA/VOMITING; Start 09/01/18 at 17:30 Acetaminophen (Tylenol Tab) 650 mg Q6H PRN PO .PAIN 1-3 OR TEMP; Start 09/01/18 at 17:30 Oxycodone/ Acetaminophen (Percocet (5/ 325)) 1 tab Q6H PRN PO .MOD PAIN 4-6 Last administered on 09/05/18at 02:49; Admin Dose 1 TAB; Start 09/01/18 at 17:30 Docusate Sodium (Colace) 100 mg Q12H PRN PO .CONSTIPATION Last administered on 09/08/18 20:19; Admin Dose 100 MG; Start 09/01/18 at 17:30 Bisacodyl (Dulcolax) 5 mg DAILY PRN PO .CONSTIPATION; Start 09/01/18 at 17:30 Famotidine (Pepcid) 20 mg Q12 PO Last administered on 09/11/18 09:11; Admin Dose 20 MG; Start 09/01/18 at 21:00 Benazepril HCl (Lotensin) 40 mg DAILY PO Last administered on 09/11/18 09:11; Admin Dose 40 MG; Start 09/02/18 at 09:00 Carvedilol (Coreg) 6.25 mg BID PO Last administered on 09/11/18 09:10; Admin Dose 6.25 MG; Start 09/01/18 at 21:00 Divalproex Sodium (Depakote Er) 250 mg BID PO Last administered on 09/11/18 09:10; Admin Dose 250 MG; Start 09/01/18 at 21:00 Donepezil HCl (Aricept) 10 mg DAILY PO Last administered on 09/11/18 09:11; Admin Dose 10 MG; Start 09/02/18 at 09:00 Dutasteride (Avodart) 0.5 mg DAILY PO Last administered on 09/11/18 09:11; Admin Dose 0.5 MG; Start 09/02/18 at 09:00 Escitalopram Oxalate (Lexapro) 5 mg DAILY PO Last administered on 09/11/18 09:10; Admin Dose 5 MG; Start 09/02/18 at 09:00 Ferrous Sulfate (Ferrous Sulfate (Ec)) 325 mg DAILY PO Last administered on 09/11/18 09:09; Admin Dose 325 MG; Start 09/02/18 at 09:00 Memantine (Namenda) 10 mg DAILY PO Last administered on 09/11/18 09:11; Admin Dose 10 MG; Start 09/02/18 at 09:00 Olanzapine (Zyprexa) 2.5 mg TID PO Last administered on 09/11/18 09:11; Admin Dose 2.5 MG; Start 09/01/18 at 21:00 Tamsulosin HCl (Flomax) 0.4 mg HS PO Last administered on 09/10/18at 21:27; Admin Dose 0.4 MG; Start 09/01/18 at 21:00 Atorvastatin Calcium (Lipitor) 20 mg DAILY@21 PO Last administered on 09/10/18at 21:27; Admin Dose 20 MG; Start 09/01/18 at 21:00 Ferric Sodium Gluconate Complex 125 mg/Sodium Chloride 110 ml @ 110 mls/hr DAILY@1300 IVPB Last administered on 09/10/18at 14:15; Admin Dose 110 MLS/HR; Start 09/10/18 at 14:30; Stop 09/14/18 at 13:59 GURJIT ANTUNEZ Sep 11, 2018 12:17
[2018-09-11 14:00] VITALS: BP 117/63; PULSE 65; RESP 18
[2018-09-11] MEDS: SOD FERRIC GLUC COMPLX 125 MG in SOD CHLORIDE 0.9% 100 ML IVPB SCH (15:34)
--- NOTE | 2018-09-11 16:29 | CONS ---
Assessment/Plan Assessment/Plan Assessment/Plan (Daily) pleasant 83 yo with multiple medical problems admitted with UTI who we are asked to see for mild pancytopenia - he has microcytosis - overall his counts are stable to slightly improved since admission - pancytopenia possibly 2/2 to underlying infection - iron studies c/w iron deficiency. start Ferrlecit x 5 doses - SPEP negative for any monoclonal proteins - neutropenic precautions - ok to start GCSF Patient seen in collaboration with Dr Carrera Consultation Date/Type/Reason Admit Date/Time September 02, 2018 at 11:07 Initial Consult Date Type of Consult ONCOLOGY Reason for Consultation mild pancytopenia Date/Time of Note DATE: 09/11/18 TIME: 16:29 24 HR Interval Summary Free Text/Dictation Resting; comfortable; no bleeding reported start Ferrlecit x 5 doses no events overnight dw staff Detailed Summary Eyes: no complaints ENT: no complaints Respiratory: no complaints Cardiovascular: no complaints Gastrointestinal: no complaints Genitourinary: no complaints Musculoskeletal: no complaints Skin: no complaints Endocrine: no complaints Exam/Review of Systems Exam Vitals Vital Signs Date Temp Pulse Resp B/P (MAP) Pulse Ox O2 O2 Flow FiO2 Time Delivery Rate 09/11/18 98.1 65 18 117/63 95 14:00 (81) 09/09/18 Room Air 13:41 Intake and Output 09/10/18 09/10/18 09/11/18 1515:00 23:00 07:00 IntakeIntake Total 550 ml 460 ml OutputOutput Total 200 ml BalanceBalance 550 ml 260 ml Constitutional: alert, well developed Psych: nl mood/affect Eyes: nl lids, nl sclera ENMT: nl external ears & nose Neck: non-tender Respiratory: clear to auscultation Cardiovascular: nl pulses, other (s1s2) Gastrointestinal: soft, non-tender Musculoskeletal: nl extremities to inspection Extremities: normal pulses Neurological: nl speech, other (alert/responsive) Skin: nl turgor Lymph: nontender Results Result Diagram: 09/10/18 0556 09/10/18 0556 Medications Medication Current Medications Ondansetron HCl (Zofran Inj) 4 mg Q6H PRN IV NAUSEA/VOMITING; Start 09/01/18 at 17:30 Acetaminophen (Tylenol Tab) 650 mg Q6H PRN PO .PAIN 1-3 OR TEMP; Start 09/01/18 at 17:30 Oxycodone/ Acetaminophen (Percocet (5/ 325)) 1 tab Q6H PRN PO .MOD PAIN 4-6 Last administered on 09/05/18 02:49; Admin Dose 1 TAB; Start 09/01/18 at 17:30 Docusate Sodium (Colace) 100 mg Q12H PRN PO .CONSTIPATION Last administered on 09/08/18 20:19; Admin Dose 100 MG; Start 09/01/18 at 17:30 Bisacodyl (Dulcolax) 5 mg DAILY PRN PO .CONSTIPATION; Start 09/01/18 at 17:30 Famotidine (Pepcid) 20 mg Q12 PO Last administered on 09/11/18 09:11; Admin Dose 20 MG; Start 09/01/18 at 21:00 Benazepril HCl (Lotensin) 40 mg DAILY PO Last administered on 09/11/18 09:11; Admin Dose 40 MG; Start 09/02/18 at 09:00 Carvedilol (Coreg) 6.25 mg BID PO Last administered on 09/11/18 09:10; Admin Dose 6.25 MG; Start 09/01/18 at 21:00 Divalproex Sodium (Depakote Er) 250 mg BID PO Last administered on 09/11/18 09:10; Admin Dose 250 MG; Start 09/01/18 at 21:00 Donepezil HCl (Aricept) 10 mg DAILY PO Last administered on 09/11/18 09:11; Admin Dose 10 MG; Start 09/02/18 at 09:00 Dutasteride (Avodart) 0.5 mg DAILY PO Last administered on 09/11/18 09:11; Admin Dose 0.5 MG; Start 09/02/18 at 09:00 Escitalopram Oxalate (Lexapro) 5 mg DAILY PO Last administered on 09/11/18 09:10; Admin Dose 5 MG; Start 09/02/18 at 09:00 Ferrous Sulfate (Ferrous Sulfate (Ec)) 325 mg DAILY PO Last administered on 09/11/18 09:09; Admin Dose 325 MG; Start 09/02/18 at 09:00 Memantine (Namenda) 10 mg DAILY PO Last administered on 09/11/18 09:11; Admin Dose 10 MG; Start 09/02/18 at 09:00 Olanzapine (Zyprexa) 2.5 mg TID PO Last administered on 09/11/18at 13:44; Admin Dose 2.5 MG; Start 09/01/18 at 21:00 Tamsulosin HCl (Flomax) 0.4 mg HS PO Last administered on 09/10/18at 21:27; Admin Dose 0.4 MG; Start 09/01/18 at 21:00 Atorvastatin Calcium (Lipitor) 20 mg DAILY@21 PO Last administered on 09/10/18at 21:27; Admin Dose 20 MG; Start 09/01/18 at 21:00 Ferric Sodium Gluconate Complex 125 mg/Sodium Chloride 110 ml @ 110 mls/hr DAILY@1300 IVPB Last administered on 09/11/18at 15:34; Admin Dose 110 MLS/HR; Start 09/10/18 at 14:30; Stop 09/14/18 at 13:59 FROYLAN ALVAREZ Sep 11, 2018 16:29
[2018-09-11 20:00] VITALS: BP 138/60; PULSE 57; RESP 17
[2018-09-11] MEDS: ATORVASTATIN 20 MG TAB PO SCH (20:38)
[2018-09-11] MEDS: TAMSULOSIN (SR) 0.4 MG CAP PO SCH (20:38)
[2018-09-12 01:43] VITALS: BP 111/70; PULSE 64; RESP 18
[2018-09-12 07:38] VITALS: BP 110/62; PULSE 68; RESP 19
[2018-09-12] MEDS: ESCITALOPRAM 10 MG TAB PO SCH (09:04)
[2018-09-12] MEDS: DONEPEZIL 10 MG TAB PO SCH (09:04)
[2018-09-12] MEDS: FAMOTIDINE 20 MG TAB PO SCH ×2 (09:04→20:32)
[2018-09-12] MEDS: OLANZAPINE 2.5 MG TAB PO SCH ×3 (09:04→20:20)
[2018-09-12] MEDS: BENAZEPRIL 40 MG TAB PO SCH (09:05)
[2018-09-12] MEDS: MEMANTINE 10 MG TAB PO SCH (09:05)
[2018-09-12] MEDS: FERROUS SULFATE (EC) 325 MG TAB PO SCH (09:05)
[2018-09-12] MEDS: DIVALPROEX (ER) 250 MG TAB PO SCH ×2 (09:05→20:20)
[2018-09-12] MEDS: DUTASTERIDE 0.5 MG CAP PO SCH (09:05)
--- NOTE | 2018-09-12 11:29 | PN ---
Date/Time of Note Date/Time of Note DATE: 09/12/18 TIME: 11:28 Assessment/Plan VTE Prophylaxis Risk score (from [facility])>0 risk: 5 [place] [facility] [place] contraindicated: other Pharmacological prophylaxis: LMWH Lines/Catheters IV Catheter Type (from [facility] Saline Lock Urinary Cath still in place: No Assessment/Plan Hospital Course -Cystitis. Completed treatment with antibiotics. Dr. Self is following in infection disease consultation. -Possible metabolic encephalopathy secondary to infection -Pancytopenia. Dr. Esquivel is following in hematology consultation. -Dementia with behavioral disturbance. Continue Aricept, Namenda, Zyprexa. psychiatric consult is appreciated. -HX of BPH, s/p TURP on 07/21/2018. Dr. Dolan is following in urology consultation. -Preserved ejection fraction per recent echo -Hypertension. Continue Lotensin. -Depression. Continue Lexapro. Result Diagram: 09/10/18 0556 09/10/18 0556 Subjective 24 Hr Interval Summary Free Text/Dictation Patient has no complaints Exam/Review of Systems Exam Vitals Vital Signs Date Temp Pulse Resp B/P (MAP) Pulse Ox O2 O2 Flow FiO2 Time Delivery Rate 09/12/18 97.5 68 19 110/62 93 07:38 (78) 09/09/18 Room Air 13:41 Intake and Output 09/11/18 09/11/18 09/12/18 1515:00 23:00 07:00 IntakeIntake Total 640 ml 710 ml OutputOutput Total 400 ml 320 ml BalanceBalance 640 ml 310 ml -320 ml Constitutional: well developed Head: normocephalic, atraumatic Neck: supple Respiratory: diminished breath sounds Cardiovascular: regular rate and rhythm Gastrointestinal: soft, non-tender Extremities: normal pulses Medications Medication Current Medications Ondansetron HCl (Zofran Inj) 4 mg Q6H PRN IV NAUSEA/VOMITING; Start 09/01/18 at 17:30 Acetaminophen (Tylenol Tab) 650 mg Q6H PRN PO .PAIN 1-3 OR TEMP; Start 09/01/18 at 17:30 Oxycodone/ Acetaminophen (Percocet (5/ 325)) 1 tab Q6H PRN PO .MOD PAIN 4-6 Last administered on 09/05/18at 02:49; Admin Dose 1 TAB; Start 09/01/18 at 17:30 Docusate Sodium (Colace) 100 mg Q12H PRN PO .CONSTIPATION Last administered on 09/08/18 20:19; Admin Dose 100 MG; Start 09/01/18 at 17:30 Bisacodyl (Dulcolax) 5 mg DAILY PRN PO .CONSTIPATION; Start 09/01/18 at 17:30 Famotidine (Pepcid) 20 mg Q12 PO Last administered on 09/12/18 09:04; Admin Dose 20 MG; Start 09/01/18 at 21:00 Benazepril HCl (Lotensin) 40 mg DAILY PO Last administered on 09/12/18 09:05; Admin Dose 40 MG; Start 09/02/18 at 09:00 Carvedilol (Coreg) 6.25 mg BID PO Last administered on 09/12/18 09:05; Admin Dose 6.25 MG; Start 09/01/18 at 21:00 Divalproex Sodium (Depakote Er) 250 mg BID PO Last administered on 09/12/18 09:05; Admin Dose 250 MG; Start 09/01/18 at 21:00 Donepezil HCl (Aricept) 10 mg DAILY PO Last administered on 09/12/18 09:04; Admin Dose 10 MG; Start 09/02/18 at 09:00 Dutasteride (Avodart) 0.5 mg DAILY PO Last administered on 09/12/18 09:05; Admin Dose 0.5 MG; Start 09/02/18 at 09:00 Escitalopram Oxalate (Lexapro) 5 mg DAILY PO Last administered on 09/12/18 09:04; Admin Dose 5 MG; Start 09/02/18 at 09:00 Ferrous Sulfate (Ferrous Sulfate (Ec)) 325 mg DAILY PO Last administered on 09/12/18 09:05; Admin Dose 325 MG; Start 09/02/18 at 09:00 Memantine (Namenda) 10 mg DAILY PO Last administered on 09/12/18 09:05; Admin Dose 10 MG; Start 09/02/18 at 09:00 Olanzapine (Zyprexa) 2.5 mg TID PO Last administered on 09/12/18 09:04; Admin Dose 2.5 MG; Start 09/01/18 at 21:00 Tamsulosin HCl (Flomax) 0.4 mg HS PO Last administered on 09/11/18at 20:38; Admin Dose 0.4 MG; Start 09/01/18 at 21:00 Atorvastatin Calcium (Lipitor) 20 mg DAILY@21 PO Last administered on 09/11/18at 20:38; Admin Dose 20 MG; Start 09/01/18 at 21:00 Ferric Sodium Gluconate Complex 125 mg/Sodium Chloride 110 ml @ 110 mls/hr DAILY@1300 IVPB Last administered on 09/11/18at 15:34; Admin Dose 110 MLS/HR; Start 09/10/18 at 14:30; Stop 09/14/18 at 13:59 GURJIT ANTUNEZ Sep 12, 2018 11:29
[2018-09-12] MEDS: SOD FERRIC GLUC COMPLX 125 MG in SOD CHLORIDE 0.9% 100 ML IVPB SCH (13:09)
[2018-09-12 14:03] VITALS: BP 98/54; PULSE 65; RESP 18
[2018-09-12 19:47] VITALS: BP 111/59; PULSE 70; RESP 18
[2018-09-12] MEDS: ATORVASTATIN 20 MG TAB PO SCH (20:32)
[2018-09-12] MEDS: TAMSULOSIN (SR) 0.4 MG CAP PO SCH (20:33)
[2018-09-13 01:53] VITALS: BP 125/66; PULSE 70; RESP 18
[2018-09-13 07:57] VITALS: BP 103/57; PULSE 71; RESP 18
[2018-09-13] MEDS: DUTASTERIDE 0.5 MG CAP PO SCH (08:46)
[2018-09-13] MEDS: MEMANTINE 10 MG TAB PO SCH (08:46)
[2018-09-13] MEDS: FAMOTIDINE 20 MG TAB PO SCH ×2 (08:46→21:29)
[2018-09-13] MEDS: DIVALPROEX (ER) 250 MG TAB PO SCH ×2 (08:46→21:29)
[2018-09-13] MEDS: OLANZAPINE 2.5 MG TAB PO SCH ×3 (08:46→21:29)
[2018-09-13] MEDS: FERROUS SULFATE (EC) 325 MG TAB PO SCH (08:46)
[2018-09-13] MEDS: DONEPEZIL 10 MG TAB PO SCH (08:47)
[2018-09-13] MEDS: ESCITALOPRAM 10 MG TAB PO SCH (08:47)
[2018-09-13] MEDS: BENAZEPRIL 40 MG TAB PO SCH (08:49)
[2018-09-13] MEDS: SOD FERRIC GLUC COMPLX 125 MG in SOD CHLORIDE 0.9% 100 ML IVPB SCH (12:52)
[2018-09-13 14:00] VITALS: BP 135/62; PULSE 60; RESP 18
--- NOTE | 2018-09-13 18:06 | PN ---
Date/Time of Note Date/Time of Note DATE: 09/13/18 TIME: 18:06 Assessment/Plan VTE Prophylaxis [place] [facility] [place] risk: 5 [place]CD [place] [facility] [place] Yes Pharmacological prophylaxis: NA/contraindicated Pharm contraindication: thrombocytopenia Lines/Catheters IV C[facility] Type (from [facility] Peripheral IV Urinary Cath still in place: No Assessment/Plan Hospital Course Patient remains hemodynamically stable, afebrile, neuro status is at the baseline, CBC tomorrow, patient with iron deficiency anemia in spite of p.o. iron supplements, continue Ferrlecit, patient is undergoing hematology work-up for persistent pancytopenia. Assessment/Plan -Cystitis. Completed treatment with antibiotics. Dr. Self is following in infection disease consultation. -Possible metabolic encephalopathy secondary to infection, resolved. -Pancytopenia. Continue neutropenic precaution. Dr. Esquivel is following in hematology consultation. -Iron deficiency anemia, continue Ferrlecit. -Dementia with behavioral disturbance. Continue Aricept, Namenda, Zyprexa. psychiatric consult is appreciated. -HX of BPH, s/p TURP on 07/21/2018. Dr. Dolan is following in urology consultation. -Preserved ejection fraction per recent echo -Hypertension. Continue Lotensin. -Depression. Continue Lexapro. Further recommendations based on clinical course. Plan of care discussed with Dr. Becker. Result Diagram: 09/10/18 0556 09/10/18 0556 Exam/Review of Systems Exam Vitals Vital Signs Date Temp Pulse Resp B/P (MAP) Pulse Ox O2 O2 Flow FiO2 Time Delivery Rate 09/13/18 98.1 60 18 135/62 96 14:00 (86) 09/09/18 Room Air 13:41 Intake and Output 09/12/18 09/12/18 09/13/18 1414:59 22:59 06:59 IntakeIntake Total 110 ml 890 ml OutputOutput Total 400 ml BalanceBalance 110 ml 490 ml Exam Constitutional: alert, oriented Respiratory: clear to auscultation Cardiovascular: nl pulses Gastrointestinal: soft, non-tender Extremities: normal pulses Neurological: nl mental status Skin: nl turgor Medications Medication Current Medications Ondansetron HCl (Zofran Inj) 4 mg Q6H PRN IV NAUSEA/VOMITING; Start 09/01/18 at 17:30 Acetaminophen (Tylenol Tab) 650 mg Q6H PRN PO .PAIN 1-3 OR TEMP; Start 09/01/18 at 17:30 Oxycodone/ Acetaminophen (Percocet (5/ 325)) 1 tab Q6H PRN PO .MOD PAIN 4-6 Last administered on 09/05/18 02:49; Admin Dose 1 TAB; Start 09/01/18 at 17:30 Docusate Sodium (Colace) 100 mg Q12H PRN PO .CONSTIPATION Last administered on 09/08/18 20:19; Admin Dose 100 MG; Start 09/01/18 at 17:30 Bisacodyl (Dulcolax) 5 mg DAILY PRN PO .CONSTIPATION; Start 09/01/18 at 17:30 Famotidine (Pepcid) 20 mg Q12 PO Last administered on 09/13/18 08:46; Admin Dose 20 MG; Start 09/01/18 at 21:00 Benazepril HCl (Lotensin) 40 mg DAILY PO Last administered on 09/12/18 09:05; Admin Dose 40 MG; Start 09/02/18 at 09:00 Carvedilol (Coreg) 6.25 mg BID PO Last administered on 09/12/18 09:05; Admin Dose 6.25 MG; Start 09/01/18 at 21:00 Divalproex Sodium (Depakote Er) 250 mg BID PO Last administered on 09/13/18 08:46; Admin Dose 250 MG; Start 09/01/18 at 21:00 Donepezil HCl (Aricept) 10 mg DAILY PO Last administered on 09/13/18 08:47; Admin Dose 10 MG; Start 09/02/18 at 09:00 Dutasteride (Avodart) 0.5 mg DAILY PO Last administered on 09/13/18 08:46; Admin Dose 0.5 MG; Start 09/02/18 at 09:00 Escitalopram Oxalate (Lexapro) 5 mg DAILY PO Last administered on 09/13/18 08:47; Admin Dose 5 MG; Start 09/02/18 at 09:00 Ferrous Sulfate (Ferrous Sulfate (Ec)) 325 mg DAILY PO Last administered on 09/13/18 08:46; Admin Dose 325 MG; Start 09/02/18 at 09:00 Memantine (Namenda) 10 mg DAILY PO Last administered on 09/13/18 08:46; Admin Dose 10 MG; Start 09/02/18 at 09:00 Olanzapine (Zyprexa) 2.5 mg TID PO Last administered on 09/13/18 12:51; Admin Dose 2.5 MG; Start 09/01/18 at 21:00 Tamsulosin HCl (Flomax) 0.4 mg HS PO Last administered on 09/12/18 20:33; Admin Dose 0.4 MG; Start 09/01/18 at 21:00 Atorvastatin Calcium (Lipitor) 20 mg DAILY@21 PO Last administered on 09/12/18 20:32; Admin Dose 20 MG; Start 09/01/18 at 21:00 Ferric Sodium Gluconate Complex 125 mg/Sodium Chloride 110 ml @ 110 mls/hr DAILY@1300 IVPB Last administered on 09/13/18 12:52; Admin Dose 110 MLS/HR; Start 09/10/18 at 14:30; Stop 09/14/18 at 13:59 JOYCE CHOW Sep 13, 2018 18:06
[2018-09-13 20:55] VITALS: BP 97/52; PULSE 85; RESP 18
[2018-09-13 21:27] VITALS: BP 108/52; PULSE 86
[2018-09-13] MEDS: ATORVASTATIN 20 MG TAB PO SCH (21:29)
[2018-09-13] MEDS: TAMSULOSIN (SR) 0.4 MG CAP PO SCH (21:29)
[2018-09-14 02:16] VITALS: BP 129/66; PULSE 75; RESP 18
[2018-09-14 07:35] VITALS: BP 125/61; PULSE 83; RESP 18
[2018-09-14] MEDS: OLANZAPINE 2.5 MG TAB PO SCH ×2 (09:19→12:11)
[2018-09-14] MEDS: DIVALPROEX (ER) 250 MG TAB PO SCH (09:19)
[2018-09-14] MEDS: FERROUS SULFATE (EC) 325 MG TAB PO SCH (09:20)
[2018-09-14] MEDS: MEMANTINE 10 MG TAB PO SCH (09:20)
[2018-09-14] MEDS: DONEPEZIL 10 MG TAB PO SCH (09:20)
[2018-09-14] MEDS: DUTASTERIDE 0.5 MG CAP PO SCH (09:20)
[2018-09-14] MEDS: ESCITALOPRAM 10 MG TAB PO SCH (09:20)
[2018-09-14] MEDS: BENAZEPRIL 40 MG TAB PO SCH (09:20)
[2018-09-14] MEDS: FAMOTIDINE 20 MG TAB PO SCH (09:20)
[2018-09-14] MEDS: SOD FERRIC GLUC COMPLX 125 MG in SOD CHLORIDE 0.9% 100 ML IVPB SCH (12:11)
[2018-09-14 14:26] VITALS: BP 104/61; PULSE 66; RESP 18
== END 2018-09-14 17:50 | DRG 689 ==
LOC: E/R 11:43 → 5EC 12:57 → OBSVTOIN 09-02 11:07
PROVIDERS: ADMIT Internal Medicine; ATTEND Internal Medicine
DX: N30.00 Acute cystitis without hematuria (principal); G93.41 Metabolic encephalopathy; D61.818 Other pancytopenia; F03.91 Unspecified dementia, unspecified severity, with behavioral disturbance; J44.9 Chronic obstructive pulmonary disease, unspecified; I11.0 Hypertensive heart disease with heart failure; I50.9 Heart failure, unspecified; F32.9 Major depressive disorder, single episode, unspecified; N40.0 Benign prostatic hyperplasia without lower urinary tract symptoms; D50.9 Iron deficiency anemia, unspecified; I10 Essential (primary) hypertension
CPT/HCPCS: 36415; 80048; 80053; 80307; 81001; 82607; 82728; 83540; 84155; 84165; 85025; 85384; 85610; 85730; 87081; 87086; 99217; G0378; J0696; J2916